=== PATIENT | male | born 1960 | race Caucasian/White ===

== ENCOUNTER 2017-05-06 13:39 | Outpatient (RCR) | payer MEDICARE, SELFPAY ==
[2017-05-06 16:08] LABS: Absolute Lymphocyte Count 2.04 X10^3/ul (0.83-4.51); Absolute Neutrophil Count 2.7 X10^3/uL (2.0-7.7); Basophil# 0.03 X10^3/uL; Basophil% 0.5 % (0-1); Eosinophil# 0.16 X10^3/uL; Eosinophils% 2.9 % (0-5); Hematocrit 46.3 % (40-54); Hemoglobin 16.1 g/dl (13.0-16.5); Lymphocyte # 2.04 X10^3/ul (4.0); Lymphocyte % 36.6 % (19-41); Mean Corp Hgb Conc 34.8 g/gl (32-36); Mean Corpuscular Hgb 28.8 pg (27.0-32.0); Mean Corpuscular Volume 82.8 fL (80-94); Mean Platelet Vol. 11.2 fl (6.2-12.0); Monocyte# 0.61 X10^3/uL; Neutrophil # 2.72 X10^3/uL (2.7-7.7); Neutrophil % 48.8 % (47-70); Platelet Count 195 K/mm3 (150-450); RBC Distribution Width CV 14.9 % (11.6-14.6); RBC Distribution Width SD 45.5 fl (35.1-43.9); Red Blood Count 5.59 M/mm3 (4.6-6.2); White Blood Count 5.6 K/mm3 (4.4-11.0)
[2017-05-06 16:14] LABS: POSITIVE COUNT NO; POSITIVE DIFFERENTIAL NO; POSITIVE MORPHOLOGY NO
== END 2017-05-06 14:00 | disposition home or self-care (01) ==
LOC: MTLAB 13:39
PROVIDERS: Family Provider Family Medicine; PCP Family Medicine; Visit Provider Psychiatry & Neurology Psychiatry
DX: Z79.899 Other long term (current) drug therapy (principal); F25.9 Schizoaffective disorder, unspecified
CPT/HCPCS: 36415; 85025

== ENCOUNTER 2017-06-03 08:16 | Outpatient (RCR) | payer MEDICARE, SELFPAY ==
[2017-06-03 10:29] LABS: Absolute Lymphocyte Count 1.78 X10^3/ul (0.83-4.51); Absolute Neutrophil Count 3.1 X10^3/uL (2.0-7.7); Basophil# 0.03 X10^3/uL; Basophil% 0.5 % (0-1); Eosinophil# 0.18 X10^3/uL; Eosinophils% 3.3 % (0-5); Hematocrit 48.4 % (40-54); Hemoglobin 16.1 g/dl (13.0-16.5); Lymphocyte # 1.78 X10^3/ul (4.0); Lymphocyte % 32.2 % (19-41); Mean Corp Hgb Conc 33.3 g/gl (32-36); Mean Corpuscular Hgb 28.2 pg (27.0-32.0); Mean Corpuscular Volume 84.9 fL (80-94); Mean Platelet Vol. 11.3 fl (6.2-12.0); Monocyte# 0.45 X10^3/uL; Monocyte% 8.2 % (0-10); Neutrophil # 3.07 X10^3/uL (2.7-7.7); Neutrophil % 55.6 % (47-70); Platelet Count 188 K/mm3 (150-450); RBC Distribution Width CV 14.2 % (11.6-14.6); RBC Distribution Width SD 44.4 fl (35.1-43.9); White Blood Count 5.5 K/mm3 (4.4-11.0)
[2017-06-03 10:30] LABS: POSITIVE COUNT NO; POSITIVE DIFFERENTIAL NO; POSITIVE MORPHOLOGY NO
== END 2017-06-03 15:00 | disposition home or self-care (01) ==
LOC: MTLAB 08:16
PROVIDERS: Family Provider Family Medicine; PCP Family Medicine; Visit Provider Psychiatry & Neurology Psychiatry
DX: Z79.899 Other long term (current) drug therapy (principal)
CPT/HCPCS: 36415; 85025

== ENCOUNTER 2017-07-01 13:37 | Outpatient (RCR) | payer MEDICARE, SELFPAY ==
[2017-07-01 16:04] LABS: Absolute Lymphocyte Count 1.84 X10^3/ul (0.83-4.51); Absolute Neutrophil Count 3.9 X10^3/uL (2.0-7.7); Basophil# 0.02 X10^3/uL; Basophil% 0.3 % (0-1); Eosinophil# 0.16 X10^3/uL; Eosinophils% 2.4 % (0-5); Hematocrit 44.5 % (40-54); Hemoglobin 15.6 g/dl (13.0-16.5); Lymphocyte # 1.84 X10^3/ul (4.0); Lymphocyte % 27.2 % (19-41); Mean Corp Hgb Conc 35.1 g/gl (32-36); Mean Corpuscular Hgb 29.2 pg (27.0-32.0); Mean Corpuscular Volume 83.3 fL (80-94); Mean Platelet Vol. 11.1 fl (6.2-12.0); Monocyte# 0.87 X10^3/uL; Monocyte% 12.9 % (0-10); Neutrophil # 3.85 X10^3/uL (2.7-7.7); Neutrophil % 56.9 % (47-70); Platelet Count 175 K/mm3 (150-450); RBC Distribution Width CV 13.5 % (11.6-14.6); RBC Distribution Width SD 41.3 fl (35.1-43.9); Red Blood Count 5.34 M/mm3 (4.6-6.2); White Blood Count 6.8 K/mm3 (4.4-11.0)
[2017-07-01 16:05] LABS: POSITIVE COUNT NO; POSITIVE DIFFERENTIAL NO; POSITIVE MORPHOLOGY NO
[2017-07-01 16:26] LABS: ALB/GLOB Ratio 1.1 RATIO (0.9-2.4); AST(SGOT) 13 U/L (15-37); Alanine Aminotransfer ALT/SGPT 26 U/L (16-61); Albumin, Serum 3.8 g/dL (3.2-5.0); Alkaline Phosphatase 74 U/L (45-117); Anion Gap 9 (5-15); BUN 17 mg/dL (7-18); BUN/Creat Ratio 13.5 RATIO (10-20); Calcium,Total 8.4 mg/dL (8.5-10.1); Chloride 101 mmol/L (98-107); Cholesterol 119 mg/dL (200); Creatinine, Serum 1.26 mg/dL (0.70-1.30); EST Glomerular Filtration Rate 63 mL/min (>60); Est Glom Filt Rate - Afr Amer 76 mL/min (>60); Globulin 3.5 g/dL (2.2-4.2); Glucose 111 mg/dL (74-106); High Density Lipoprotein 26 mg/dL; Potassium 3.5 mmol/L (3.5-5.1); Protein, Total 7.3 g/dL (6.4-8.2); Sodium Level 135 mmol/L (136-145); Triglycerides 290 mg/dL; Very Low Density Lipoprotein 58 mg/dL (5-40)
== END 2017-07-01 14:00 | disposition home or self-care (01) ==
LOC: MTLAB 13:37
PROVIDERS: Family Provider Family Medicine; PCP Family Medicine; Visit Provider Psychiatry & Neurology Psychiatry
DX: Z79.899 Other long term (current) drug therapy (principal)
CPT/HCPCS: 36415; 80053; 80061; 84443; 85025

== ENCOUNTER → 2017-07-29 09:05 | Outpatient (CLI) | payer MEDICARE, SELFPAY ==
[2017-07-29 09:55] LABS: Absolute Lymphocyte Count 2.01 X10^3/ul (0.83-4.51); Absolute Neutrophil Count 3.5 X10^3/uL (2.0-7.7); Basophil# 0.03 X10^3/uL; Basophil% 0.5 % (0-1); Eosinophil# 0.26 X10^3/uL; Eosinophils% 4.1 % (0-5); Hematocrit 49.6 % (40-54); Hemoglobin 16.7 g/dl (13.0-16.5); Lymphocyte # 2.01 X10^3/ul (4.0); Lymphocyte % 31.4 % (19-41); Mean Corp Hgb Conc 33.7 g/gl (32-36); Mean Corpuscular Hgb 29.1 pg (27.0-32.0); Mean Corpuscular Volume 86.6 fL (80-94); Mean Platelet Vol. 10.9 fl (6.2-12.0); Monocyte# 0.63 X10^3/uL; Monocyte% 9.8 % (0-10); Neutrophil # 3.48 X10^3/uL (2.7-7.7); Neutrophil % 54.2 % (47-70); Platelet Count 183 K/mm3 (150-450); RBC Distribution Width CV 13.9 % (11.6-14.6); RBC Distribution Width SD 43.6 fl (35.1-43.9); Red Blood Count 5.73 M/mm3 (4.6-6.2); White Blood Count 6.4 K/mm3 (4.4-11.0)
[2017-07-29 09:56] LABS: POSITIVE COUNT NO; POSITIVE DIFFERENTIAL NO; POSITIVE MORPHOLOGY NO
== END ==
PROVIDERS: Family Provider Family Medicine; PCP Family Medicine; Visit Provider Psychiatry & Neurology Psychiatry
DX: F19.10 Other psychoactive substance abuse, uncomplicated (principal); Z79.899 Other long term (current) drug therapy; R53.83 Other fatigue
CPT/HCPCS: 36415; 85025

== ENCOUNTER 2017-09-23 12:14 | Outpatient (RCR) | payer MEDICARE, SELFPAY ==
[2017-08-26 12:07] LABS: Absolute Lymphocyte Count 1.61 X10^3/ul (0.83-4.51); Absolute Neutrophil Count 3.4 X10^3/uL (2.0-7.7); Basophil# 0.04 X10^3/uL; Basophil% 0.7 % (0-1); Eosinophil# 0.14 X10^3/uL; Eosinophils% 2.4 % (0-5); Hematocrit 46.2 % (40-54); Hemoglobin 16.1 g/dl (13.0-16.5); Lymphocyte # 1.61 X10^3/ul (4.0); Mean Corp Hgb Conc 34.8 g/gl (32-36); Mean Corpuscular Hgb 29.4 pg (27.0-32.0); Mean Corpuscular Volume 84.5 fL (80-94); Monocyte% 10.4 % (0-10); Neutrophil # 3.36 X10^3/uL (2.7-7.7); Neutrophil % 58.3 % (47-70); Platelet Count 170 K/mm3 (150-450); RBC Distribution Width CV 13.3 % (11.6-14.6); RBC Distribution Width SD 41.4 fl (35.1-43.9); Red Blood Count 5.47 M/mm3 (4.6-6.2); White Blood Count 5.8 K/mm3 (4.4-11.0)
[2017-08-26 12:08] LABS: POSITIVE COUNT NO; POSITIVE DIFFERENTIAL NO; POSITIVE MORPHOLOGY NO
[2017-09-23 14:23] LABS: Absolute Lymphocyte Count 2.42 X10^3/ul (0.83-4.51); Absolute Neutrophil Count 3.5 X10^3/uL (2.0-7.7); Basophil# 0.03 X10^3/uL; Basophil% 0.4 % (0-1); Eosinophil# 0.19 X10^3/uL; Eosinophils% 2.8 % (0-5); Hematocrit 46.1 % (40-54); Hemoglobin 16.2 g/dl (13.0-16.5); Lymphocyte # 2.42 X10^3/ul (4.0); Lymphocyte % 35.2 % (19-41); Mean Corp Hgb Conc 35.1 g/gl (32-36); Mean Corpuscular Hgb 29.3 pg (27.0-32.0); Mean Corpuscular Volume 83.4 fL (80-94); Mean Platelet Vol. 11.4 fl (6.2-12.0); Monocyte# 0.68 X10^3/uL; Monocyte% 9.9 % (0-10); Neutrophil # 3.54 X10^3/uL (2.7-7.7); Neutrophil % 51.6 % (47-70); Platelet Count 176 K/mm3 (150-450); RBC Distribution Width SD 39.6 fl (35.1-43.9); Red Blood Count 5.53 M/mm3 (4.6-6.2); White Blood Count 6.9 K/mm3 (4.4-11.0)
[2017-09-23 14:30] LABS: POSITIVE COUNT NO; POSITIVE DIFFERENTIAL NO; POSITIVE MORPHOLOGY NO
== END 2017-09-23 13:00 | disposition home or self-care (01) ==
LOC: MTLAB 12:14
PROVIDERS: Family Provider Family Medicine; PCP Family Medicine; Visit Provider Psychiatry & Neurology Psychiatry
DX: Z79.899 Other long term (current) drug therapy (principal); F19.10 Other psychoactive substance abuse, uncomplicated; R53.83 Other fatigue
CPT/HCPCS: 36415; 85025

== ENCOUNTER → 2017-10-20 16:24 | Outpatient (CLI) | payer MEDICARE, SELFPAY ==
[2017-10-20 17:37] LABS: Absolute Lymphocyte Count 2.74 X10^3/ul (0.83-4.51); Absolute Neutrophil Count 3.5 X10^3/uL (2.0-7.7); Basophil# 0.04 X10^3/uL; Basophil% 0.5 % (0-1); Eosinophil# 0.15 X10^3/uL; Eosinophils% 2.1 % (0-5); Hematocrit 44.9 % (40-54); Hemoglobin 15.6 g/dl (13.0-16.5); Lymphocyte # 2.74 X10^3/ul (4.0); Lymphocyte % 37.6 % (19-41); Mean Corp Hgb Conc 34.7 g/gl (32-36); Mean Corpuscular Hgb 29.3 pg (27.0-32.0); Mean Corpuscular Volume 84.4 fL (80-94); Mean Platelet Vol. 10.5 fl (6.2-12.0); Monocyte# 0.81 X10^3/uL; Monocyte% 11.1 % (0-10); Neutrophil # 3.53 X10^3/uL (2.7-7.7); Neutrophil % 48.6 % (47-70); Platelet Count 182 K/mm3 (150-450); RBC Distribution Width CV 13.1 % (11.6-14.6); RBC Distribution Width SD 39.6 fl (35.1-43.9); Red Blood Count 5.32 M/mm3 (4.6-6.2); White Blood Count 7.3 K/mm3 (4.4-11.0)
[2017-10-20 17:38] LABS: POSITIVE COUNT NO; POSITIVE DIFFERENTIAL NO; POSITIVE MORPHOLOGY NO
== END ==
PROVIDERS: Family Provider Family Medicine; PCP Family Medicine; Visit Provider Psychiatry & Neurology Psychiatry
DX: Z79.899 Other long term (current) drug therapy (principal); F19.10 Other psychoactive substance abuse, uncomplicated; R53.83 Other fatigue
CPT/HCPCS: 36415; 85025

== ENCOUNTER 2017-11-04 14:03 | Inpatient (IN) | payer MEDICARE, SELFPAY ==
[2017-11-04] VITALS (10 sets, daily range): BP systolic 100–118; BP diastolic 64–81; PULSE 92–131; RESP 14–32; TEMP 35.2–37.1; O2SAT 94–99; BMI 27.7; BMI 27.9
[2017-11-04 14:30] LABS: Bedside Glucose 206 mg/dL (70-110)
--- NOTE | 2017-11-04 14:31 | EKG12_ITS ---
Test Reason : CP Blood Pressure : / mmHG Vent. Rate : 123 BPM Atrial Rate : 123 BPM P-R Int : 132 ms QRS Dur : 084 ms QT Int : 322 ms P-R-T Axes : 067 -36 076 degrees QTc Int : 460 ms Sinus tachycardia Left axis deviation Abnormal ECG Confirmed by BRENDA CAMACHO, JALEESA ([id number]), supervising film or videotape editor BERENICE MUNOZ ([id number]) on 11/09/2017 2:23:25 PM Referred By: BRANDEN Confirmed By:JALEESA GUTIERREZ MD
--- NOTE | 2017-11-04 14:31 | RAD_ITS ---
STUDY: X-RAY CHEST REASON FOR EXAM: Male, 57 years old. Shortness of breath, difficulty breathing TECHNIQUE: Single AP portable view of the chest. COMPARISON: 09/16/2015 FINDINGS: EKG leads overlie the chest The lungs are clear and expanded. There is no demonstrated pleural abnormality. Normal size heart. Normal mediastinum and memo. Normal visualized pulmonary arteries. Normal visualized aortic arch and descending thoracic aorta. Normal visualized thoracic spine. Normal visualized ribs, clavicles, and shoulders. There is no demonstrated abnormality of the visualized soft tissue structures of the upper abdomen. RAD/Chest 1 View (Portable) IMPRESSION: Normal x-ray examination of the chest. Electronically Signed: Jefry Wright MD at 14:54 EDT , Service support ,
[2017-11-04] MEDS: 0.9% Normal Saline 1,000 ML 999 ML IV ×2 (14:40)
--- NOTE | 2017-11-04 14:43 | ED.DCSUM_ITS ---
- ER Visit Summary Date of Service: 11/04/17 Chief Complaint: Shortness of breath History of Present Illness: The patient is a 57 M status post recent ileostomy about 2 weeks ago at the [facility]. He was hospitalized for about a week after that. Recently has been home. Last 2 days he states he has been short of breath. Really denies any significant chest pain. Denies any prior history of DVT or PE. Denies any leg pain or swelling. Denies any hemoptysis. Denies any gross blood coming from his ostomy site. He denies any fever or significant cough. Physical Examination: Middle-aged male. Vital signs blood pressure 109/65 when I am in the room his pressure is 83/70. Temperature 95.3 heart rate 131. He is 95% on room air begins talking becomes hypoxic. H EENT exam unremarkable moist wheeze membranes. Neck nontender no JVD. No lymphadenopathy. Lungs clear to auscultation bilaterally. Heart tachycardic rate about 130 no murmur. Chest wall nontender. Abdomen soft, nondistended, normal bowel sounds no peritoneal signs. His right lower quadrant ileostomy with liquid brown stool. No gross blood. No melena. Moving all 4 extremities. Calves are nontender without edema or cords. Equal symmetrical radial pulses. Neurologically is awake alert with no focal motor deficits. Test Results: Chest x-ray no acute abnormality. Ultrasound lower extremities shows no DVT. EKG sinus tachycardia 123. No acute signs of ischemia. CBC shows a white count of 14 H&H 18 and 15. No bands. Electrolytes sodium 135. CO2 18. BUN 27 creatinine 3.49. Anion gap 16. Upon normal. D-dimer slightly elevated 1.45 lactic acid 2.8. Patient does have an acute renal injury with creatinine of 3.49 previously was 1.26. Emergency Department Course and Treatment: Patient with recent surgery with hypoxia and dyspnea. He will undergo cardiac workup. Receive IV fluids for his hypotension. And a strong consideration has to be given for the possibility of a pulmonary embolus. Treatment Plan: Patient looks much better on repeat exam in 1641 after IV fluids. This may all be secondary to dehydration from the ileostomy. Patient feels better and his pulse ox is 97% on room air. We are unable to do a CTA due to his renal function. The ultrasound of the legs was negative for any DVT. He will be admitted for additional IV fluids and further evaluation for the acute kidney injury. The hospitalist will determine any further evaluation for possible pulmonary embolus. Nuclear medicine is not available at this time for a VQ scan. Also the patient's lactic acid is slightly elevated 2.8 but I do not think this is from sepsis and negative hypotension and dehydration. I have spoken to the hospitalist and she did admit the patient to PCU Disposition: Admission Impression: Acute dyspnea with hypoxia Status post recent right lower quadrant ileostomy Hypoxia Acute renal injury status post recent ileostomy Dehydration Hypotension This note was generated with [employer] dictation software. It may contain incorrect words, spelling, and punctuation that were not noted in review of the chart prior to signing ED Disposition - Plan for ED Patient: Chief Complaint: Shortness of Breath Referrals: Micheal Tejeda MD [Primary Care Provider] -
[2017-11-04 14:45] LABS: Absolute Lymphocyte Count 1.38 X10^3/ul (0.83-4.51); Absolute Neutrophil Count 11.4 X10^3/uL (2.0-7.7); Basophil# 0.05 X10^3/uL; Basophil% 0.3 % (0-1); Eosinophil# 0.05 X10^3/uL; Eosinophils% 0.3 % (0-5); Hematocrit 50.7 % (40-54); Lymphocyte # 1.38 X10^3/ul (4.0); Lymphocyte % 9.6 % (19-41); Mean Corp Hgb Conc 36.3 g/gl (32-36); Mean Corpuscular Hgb 29.9 pg (27.0-32.0); Mean Corpuscular Volume 82.3 fL (80-94); Mean Platelet Vol. 11.1 fl (6.2-12.0); Monocyte% 9.1 % (0-10); Neutrophil # 11.41 X10^3/uL (2.7-7.7); Neutrophil % 79.9 % (47-70); Platelet Count 390 K/mm3 (150-450); RBC Distribution Width CV 13.4 % (11.6-14.6); RBC Distribution Width SD 40.2 fl (35.1-43.9); Red Blood Count 6.16 M/mm3 (4.6-6.2); White Blood Count 14.3 K/mm3 (4.4-11.0)
[2017-11-04 14:48] LABS: Hemoglobin 18.4 g/dl (13.0-16.5); POSITIVE COUNT NO; POSITIVE DIFFERENTIAL NO; POSITIVE MORPHOLOGY NO
[2017-11-04 14:50] LABS: D-Dimer Quantitative (DVT/PE) 1.45 FEU/ug/m (0.27-0.49)
--- NOTE | 2017-11-04 14:50 | ED.RN ---
d-dimer 1.45. aware.
[2017-11-04 14:52] LABS: Anion Gap 16 (5-15); BUN 27 mg/dL (7-18); BUN/Creat Ratio 7.7 RATIO (10-20); Chloride 101 mmol/L (98-107); Creatinine, Serum 3.49 mg/dL (0.70-1.30); EST Glomerular Filtration Rate 20 mL/min (>60); Est Glom Filt Rate - Afr Amer 24 mL/min (>60); Estimated Creatinine Clearance 27.03 ml/min; Glucose 202 mg/dL (74-106); Potassium 4.6 mmol/L (3.5-5.1); Sodium Level 135 mmol/L (136-145)
--- NOTE | 2017-11-04 14:59 | VDLE_ITS ---
Reason For Study: SOB RIGHT LEFT GSV is normal. GSV is normal. CFV is compressible, spontaneous, phasic, CFV is compressible, spontaneous, phasic, competent and demonstrates normal competent, and demonstrates normal augmentation. augmentation. FV is compressible, spontaneous, phasic, FV is compressible, spontaneous, phasic, competent and demonstrates normal competent and demonstrates normal augmentation. augmentation. POP V is compressible, spontaneous, phasic, POP V is compressible, spontaneous, phasic, competent and demonstrates normal competent and demonstrates normal augmentation. augmentation. T/P Trunk is compressible. T/P Trunk is compressible. PTV is compressible. PTV is compressible. RT PerV is compressible. LT PerV is compressible. Procedure Exam performed portable in ED. The exam was diagnostic. A preliminary report was called and/or faxed to Dr. Maricruz Sarah @ 3:30 pm & ED. Interpretation Summary No evidence for acute deep venous thrombosis bilateral lower extremities with patent and compressible bilateral great saphenous veins. Ordering Physician: Adrien Sarah Referring Physician: Kyree Pena Performed By: Camille Flores, ARIANA, RVT
[2017-11-04 15:38] LABS: Lactic Acid 2.8 mmol/L (0.4-2.0)
--- NOTE | 2017-11-04 15:38 | NURSING ---
LAB CALLED CRITICAL RESULT OF LACTIC ACID 2.8. DR OTERO NOTIFIED, NO NEW ORDERS RECEIVED
--- NOTE | 2017-11-04 17:13 | PCM.HP.STD ---
<Shane Butler - Last Filed: 11/04/17 17:13> Problem List (1) LUIS ANTONIO (acute kidney injury) Status: Acute (2) SIRS (systemic inflammatory response syndrome) Status: Acute (3) S/P ileostomy Status: Chronic (4) HTN (hypertension) Status: Chronic (5) Diabetes mellitus Status: Chronic Qualifiers: Diabetes mellitus type: type 2 (6) HLD (hyperlipidemia) Status: Chronic (7) Schizoaffective disorder Status: Chronic (8) Nicotine abuse Status: Chronic History of Present Illness Date of Admission: 11/04/17 Chief Complaint: SOB The patient is a 57 year old M with a hx of chronic constipation and diarrhea for which he just underwent an ileostomy at [facility] 9 days prior, discharged from the hospital 2 days ago. He also has a hx of schizoaffective disorder, HTN, DMt2, nicotine abuse, and HLD. He presents today with increased SOB. He has no cough. He has been tracking the output of his ileostomy and notes >2400 cc / day. He has some abdominal distention. The output is dark green. He has no fevers or chills. No cough. No urinary complaints. No anal output. No nausea or vomiting. No abdominal pain. No CP. [] Past Medical History Past Medical History (Chronic Problems): Chronic Problems S/P ileostomy (Chronic) HTN (hypertension) (Chronic) Diabetes mellitus (Chronic) HLD (hyperlipidemia) (Chronic) Schizoaffective disorder (Chronic) Nicotine abuse (Chronic) Allergies No Known Allergies Allergy (Verified 12/29/16 13:26) Home Medications: Ambulatory Orders Medication Instructions Recorded Atenolol [Tenormin (beta Gabby)] 25 mg PO BID 02/15/15 Clozapine [Clozaril] 25 mg PO DAILY 02/15/15 Lisinopril [Zestril] 2.5 mg PO DAILY 02/15/15 Lorazepam [Ativan] 2 mg PO DAILY PRN PRN 02/15/15 Lovastatin [Mevacor] 10 mg PO DAILY 02/15/15 Montelukast [Singulair] 10 mg PO DAILY 02/15/15 [place]-3 Fatty Acids/Fish Oil 1 cap PO .COMPLEX 02/15/15 [[place] 3 Fish Oil Softgel] Propranolol HCl [Inderal] 10 mg PO DAILY 02/15/15 Sitagliptin Phos/Metformin HCl 1 tablet PO BIDCM 02/15/15 [Janumet 50-1,000 MG Tablet] Lubiprostone [Amitiza] 24 mcg PO BID 12/29/16 Aspirin [Aspirin EC] 81 mg PO DAILY 11/04/17 Cyanocobalamin (Vitamin B-12) 1,000 mcg PO DAILY 11/04/17 [Vitamin B-12] Linaclotide [Linzess] 290 mg PO BID 11/04/17 Niacinamide [Niacin] 500 mg PO DAILY 11/04/17 Perphenazine [Perphenazine] 8 mg PO 4X/DAY 11/04/17 Surgical History: - - ileostomy Psychiatric History: - - schizoaffective Lives: With Family Smoking Status: Current every day smoker Tobacco Use: Cigarettes Alcohol: Occasional Drugs: None - *Family History Maternal History Items: High Cholesterol Paternal History Items: Unknown Review of Systems Constitutional: Denies: Chills, Fever, Weight Change HEENT: Denies: Head Aches, Sinus Congestion, Sinus Drainage Cardiovascular: Denies: Chest Pain, Palpitations Respiratory: Reports: Shortness of Breath, Shortness of breath at rest. Denies: Cough, Sputum production Gastrointestinal: Reports: - - increased output from ileostomy. Denies: Abdominal Pain, Nausea, Vomiting Genitourinary: Denies: Dysuria Musculoskeletal: Denies: Joint Pain, Joint Tenderness Skin: Denies: Rash, Wounds Neurological: Denies: Numbness, Tingling, Focal weakness Psychiatric: Denies: Anxiety, Depression, Homicidal Ideations, Suicidal Ideations Hematologic/ Lymphatic: Denies: Easy Bruising, Easy Bleeding VTE Information - Inpt Only VTE Present on Admission: No VTE Mechan Device Prophylaxis: None VTE Pharm Prophylaxis ordered?: Yes Patient Problems: Active and Suspected Problems SIRS (systemic inflammatory response syndrome) (Acute) LUIS ANTONIO (acute kidney injury) (Acute) - Physical Exam General: Alert, Oriented x3, Cooperative HEENT: Atraumatic, PERRLA, EOMI, Normocephalic Neck: Supple, No JVD, Negative Carotid Bruits Lungs: Clear to auscultation, Normal air movement Cardiovascular: Regular rate, No murmurs Abdomen: Bowel Sounds Present, Soft, Non Tender, Distended Extremities: No edema, Capillary Refill Less than 3 Seconds Skin: No rashes, No breakdown Musculoskeletal: No Tenderness to Palpation of Joints or Extremities Neurological: Cranial nerves II-XII grossly intact Psych/Mental Status: Normal Affect, Appropriate Vital Signs Temp Pulse Resp BP Pulse Ox 95.3 F L 104 H 29 H 109/75 98 11/04/17 14:05 11/04/17 17:05 11/04/17 17:05 11/04/17 17:05 11/04/17 17:05 Oxygen Delivery Method Room Air Weight: 95.254 kg Body Mass Index (BMI) 27.7 Finger Stick Blood Glucose 206 Laboratory Tests Past 24 Hrs 11/04/17 11/04/17 11/04/17 14:25 14:25 14:25 WBC 14.3 H RBC 6.16 Hgb 18.4 H* Hct 50.7 MCV 82.3 MCH 29.9 MCHC 36.3 H RDW 13.4 RDW Differential 40.2 Plt Count 390 MPV 11.1 Immature Gran % (Auto) 0.800 Neut % (Auto) 79.9 H Lymph % (Auto) 9.6 L Metcalfe % (Auto) 9.1 Eos % (Auto) 0.3 Baso % (Auto) 0.3 Absolute Neuts (auto) 11.4 H Absolute Lymphs (auto) 1.38 Total Counted Not Reportable D-Dimer Quant (PE/DVT) 1.45 H* Sodium 135 L Potassium 4.6 Chloride 101 Carbon Dioxide 18.0 L Anion Gap 16 H BUN 27 H Creatinine 3.49 H Estim Creat Clear Calc 27.03 Est GFR (MDRD) Af Amer 24 L Est GFR (MDRD) Non-Af 20 L BUN/Creatinine Ratio 7.7 L Glucose 202 H Lactic Acid Calcium 10.0 Troponin I < 0.015 11/04/17 14:40 WBC RBC Hgb Hct MCV MCH MCHC RDW RDW Differential Plt Count MPV Immature Gran % (Auto) Neut % (Auto) Lymph % (Auto) Metcalfe % (Auto) Eos % (Auto) Baso % (Auto) Absolute Neuts (auto) Absolute Lymphs (auto) Total Counted D-Dimer Quant (PE/DVT) Sodium Potassium Chloride Carbon Dioxide Anion Gap BUN Creatinine Estim Creat Clear Calc Est GFR (MDRD) Af Amer Est GFR (MDRD) Non-Af BUN/Creatinine Ratio Glucose Lactic Acid 2.8 H Calcium Troponin I POC Glucose 11/04/17 14:22 POC Glucose 206 H Assessment/Plan All Active Problems SIRS (systemic inflammatory response syndrome) (Acute) LUIS ANTONIO (acute kidney injury) (Acute) 1. SOB - unclear etiology with SIRS criteria present, lactic acidosis. Lungs are clear to auscultation, no cough, negative CXR. Pt will be given IV hydration. Elevated D dimer. Will have VQ scan tomorrow, until then will receive 1 dose therapeutic lovenox. -leukocytosis, lactic acidosis, tachycardic, tachypneic, low temp, elevated gap. 2. LUIS ANTONIO - hydrate. possibly dehydrated 2/2 increased output. Hold janumet, lisinopril 3. s/p ileostomy and recently DCd from [facility] main with increased output - Dr. Dixon will be consulted. He is somewhat distended. Check for Cdiff/enteric panel, lactoferrin. 4. HTN - home meds, Hold lisinopril 5. HLD - statin held. 6. DMt2 - orals held, SSI 7. Schizoaffective disorder - continue home meds. DVT ppx: 1xdose therapeutic lovenox until VQ scan DC planning: lives with family. PTOT. Recent prolonged hospital stay, likely deconditioned. This patient was seen by Shane Butler PA-C under the supervision of Doctor Schuster. <Deneen Schuster - Last Filed: 11/04/17 19:38> History of Present Illness The patient is a 57 year old M [] Past Medical History Allergies No Known Allergies Allergy (Verified 12/29/16 13:26) - Physical Exam Vital Signs Temp Pulse Resp BP Pulse Ox 96 F L 106 H 14 108/68 96 11/04/17 17:52 11/04/17 17:52 11/04/17 17:52 11/04/17 17:52 11/04/17 17:52 Oxygen Delivery Method Room Air Weight: 96 kg Body Mass Index (BMI) 27.9 Intake and Output for Last 24 Hours 11/02/17 11/03/17 11/04/17 23:59 23:59 23:59 Output Total 600 / 600 Balance -600 / -600 Microbiology Past 72 Hours 11/04/17 17:50 Stool Lactoferrin - Final Stool POC Glucose 11/04/17 18:20 POC Glucose 143 H Assessment/Plan Patient seen and examined with physician pediatric dental assistant, Shane Butler. I agree with his above documented history, physical exam, and assessment and plan. 57-year-old male with past medical history of schizoaffective disorder, hypertension, hyperlipidemia, type II DM, chronic constipation alternating with chronic diarrhea, who is status post ileostomy for intestinal obstruction, 10 days ago. Patient was discharged from the [facility] 2 days ago. He comes in complaining of increased shortness of breath as well as increased output from his ileostomy more than 2400 mls/day. He has associated abdominal distention but denied any fever or chills or cough or chest pain or palpitations. Physical exam; GEN: Obese, appears well hydrated, no jaundice, not pale, appears comfortable CVS: Heart sounds 1 and 2, tachycardia, no murmurs. RESP: Diminished at the lung bases but otherwise vascular breath sounds no added sounds ABD: Right ileostomy, liquid green stools in ostomy bag, abdomen looks distended, soft, nontender EXT: No bilateral leg edema Labs: Leukocytosis with WBC count of 14.3, hemoglobin of 18.4, baseline hemoglobin of about 15-16 , platelet count of 390, d-dimer was 1.45, sodium 135, potassium 4.6, chloride 101, bicarbonate 18, BUN is 17, creatinine is 3.49, baseline creatinine of about 1, troponins is negative, lactic acid 2.2, glucose 202 Imaging: Chest x-ray is negative. A/P: 1. Severe sepsis, unclear etiology, doubt that patient has infection. Elevated lactic acid could very well be related to hypoxia, will trend 2. Increased output from ileostomy site, status post recent ileostomy, consult general surgery 3. Elevated hemoglobin, in a patient with baseline hemoglobin of 15-16, questionable chronic hypoxia vs polycythemia 4. LUIS ANTONIO on CKD, baseline creatinine of 1 5. Anion gap secondary to LUIS ANTONIO 6. Elevated d-dimer, tachycardia concerning for possible PE, Doppler ultrasound in the ED has been negative, cannot do CTA PE protocol because of LUIS ANTONIO, will do VQ scan 7. Hyperglycemia in a known type II diabetic 8. Hypertension, controlledf 9. Hyperlipidemia 10.Schizoaffective disorder 11.DVT prophylaxis with Lovenox subcu Blood cultures ?2, will start on empiric Zosyn pending blood cultures as we do not have a new of infection, will monitor Stool cultures, stool for C. difficile, stool for enteric panel, place and contact isolation for now We will continue most of his medications, hold lisinopril, hold Janumet, continue on IV fluids, labs in a.m., VQ scan in a.m. as radiology appears to have left for the day. We will consult general surgery, wound nurse to assist with management of ileostomy, since he had a recent surgery. We will start patient on 1 dose of therapeutic Lovenox pending results of VQ scan Code Visit Inpatient E&M: 32969 Init Hosp L3
--- NOTE | 2017-11-04 17:26 | NM_ITS ---
CLINICAL: Male, 57 years old. Shortness of breath, recent surgery NUCLEAR VENTILATION/PERFUSION - LUNG TECHNIQUE: The patient was administered 5.7 mCi of Tc MAA followed by a perfusion lung scan. The patient was administered 48.6 mCi of Tc DTPA aerosol followed by a ventilation lung scan. Comparison made to prior chest radiograph dated 11/04/2017. COMPARISON STUDIES : NM - None. CR - Not available for review at this time. CT - Not available for review at this time. MR - Not available for review at this time. FINDINGS: The pulmonary perfusion study demonstrates uniform perfusion throughout both lung jenkins. There are no demonstrated segmental or subsegmental perfusion defects The ventilation study demonstrates uniform ventilation throughout both lung jenkins. There are no segmental or subsegmental ventilation abnormalities. NM/Lung Scan Vent/Perf IMPRESSION: Normal 99m Tc MAA pulmonary perfusion Tc DTPA aerosol ventilation imaging survey, according to revised PIOPED interpretive criteria. Electronically Signed: Jefry Wright MD at 11:57 EDT , Service support ,
--- NOTE | 2017-11-04 17:31 | HP.PCM_ITS ---
<Shane Butler - Last Filed: 11/04/17 17:13> Problem List (1) LUIS ANTONIO (acute kidney injury) Status: Acute (2) SIRS (systemic inflammatory response syndrome) Status: Acute (3) S/P ileostomy Status: Chronic (4) HTN (hypertension) Status: Chronic (5) Diabetes mellitus Status: Chronic Qualifiers: Diabetes mellitus type: type 2 (6) HLD (hyperlipidemia) Status: Chronic (7) Schizoaffective disorder Status: Chronic (8) Nicotine abuse Status: Chronic History of Present Illness Date of Admission: 11/04/17 Chief Complaint: SOB The patient is a 57 year old M with a hx of chronic constipation and diarrhea for which he just underwent an ileostomy at [facility] 9 days prior, discharged from the hospital 2 days ago. He also has a hx of schizoaffective disorder, HTN, DMt2, nicotine abuse, and HLD. He presents today with increased SOB. He has no cough. He has been tracking the output of his ileostomy and notes >2400 cc / day. He has some abdominal distention. The output is dark green. He has no fevers or chills. No cough. No urinary complaints. No anal output. No nausea or vomiting. No abdominal pain. No CP. [] Past Medical History Past Medical History (Chronic Problems): Chronic Problems S/P ileostomy (Chronic) HTN (hypertension) (Chronic) Diabetes mellitus (Chronic) HLD (hyperlipidemia) (Chronic) Schizoaffective disorder (Chronic) Nicotine abuse (Chronic) Allergies No Known Allergies Allergy (Verified 12/29/16 13:26) Home Medications: Ambulatory Orders Medication Instructions Recorded Atenolol [Tenormin (beta Gabby)] 25 mg PO BID 02/15/15 Clozapine [Clozaril] 25 mg PO DAILY 02/15/15 Lisinopril [Zestril] 2.5 mg PO DAILY 02/15/15 Lorazepam [Ativan] 2 mg PO DAILY PRN PRN 02/15/15 Lovastatin [Mevacor] 10 mg PO DAILY 02/15/15 Montelukast [Singulair] 10 mg PO DAILY 02/15/15 [place]-3 Fatty Acids/Fish Oil 1 cap PO .COMPLEX 02/15/15 [[place] 3 Fish Oil Softgel] Propranolol HCl [Inderal] 10 mg PO DAILY 02/15/15 Sitagliptin Phos/Metformin HCl 1 tablet PO BIDCM 02/15/15 [Janumet 50-1,000 MG Tablet] Lubiprostone [Amitiza] 24 mcg PO BID 12/29/16 Aspirin [Aspirin EC] 81 mg PO DAILY 11/04/17 Cyanocobalamin (Vitamin B-12) 1,000 mcg PO DAILY 11/04/17 [Vitamin B-12] Linaclotide [Linzess] 290 mg PO BID 11/04/17 Niacinamide [Niacin] 500 mg PO DAILY 11/04/17 Perphenazine [Perphenazine] 8 mg PO 4X/DAY 11/04/17 Surgical History: - - ileostomy Psychiatric History: - - schizoaffective Lives: With Family Smoking Status: Current every day smoker Tobacco Use: Cigarettes Alcohol: Occasional Drugs: None - *Family History Maternal History Items: High Cholesterol Paternal History Items: Unknown Review of Systems Constitutional: Denies: Chills, Fever, Weight Change HEENT: Denies: Head Aches, Sinus Congestion, Sinus Drainage Cardiovascular: Denies: Chest Pain, Palpitations Respiratory: Reports: Shortness of Breath, Shortness of breath at rest. Denies : Cough, Sputum production Gastrointestinal: Reports: - - increased output from ileostomy. Denies: Abdominal Pain, Nausea, Vomiting Genitourinary: Denies: Dysuria Musculoskeletal: Denies: Joint Pain, Joint Tenderness Skin: Denies: Rash, Wounds Neurological: Denies: Numbness, Tingling, Focal weakness Psychiatric: Denies: Anxiety, Depression, Homicidal Ideations, Suicidal Ideations Hematologic/ Lymphatic: Denies: Easy Bruising, Easy Bleeding VTE Information - Inpt Only VTE Present on Admission: No VTE Mechan Device Prophylaxis: None VTE Pharm Prophylaxis ordered?: Yes Patient Problems: Active and Suspected Problems SIRS (systemic inflammatory response syndrome) (Acute) LUIS ANTONIO (acute kidney injury) (Acute) - Physical Exam General: Alert, Oriented x3, Cooperative HEENT: Atraumatic, PERRLA, EOMI, Normocephalic Neck: Supple, No JVD, Negative Carotid Bruits Lungs: Clear to auscultation, Normal air movement Cardiovascular: Regular rate, No murmurs Abdomen: Bowel Sounds Present, Soft, Non Tender, Distended Extremities: No edema, Capillary Refill Less than 3 Seconds Skin: No rashes, No breakdown Musculoskeletal: No Tenderness to Palpation of Joints or Extremities Neurological: Cranial nerves II-XII grossly intact Psych/Mental Status: Normal Affect, Appropriate Vital Signs Temp Pulse Resp BP Pulse Ox 95.3 F L 104 H 29 H 109/75 98 11/04/17 14:05 11/04/17 17:05 11/04/17 17:05 11/04/17 17:05 11/04/17 17:05 Oxygen Delivery Method Room Air Weight: 95.254 kg Body Mass Index (BMI) 27.7 Finger Stick Blood Glucose 206 Laboratory Tests Past 24 Hrs 11/04/17 11/04/17 11/04/17 14:25 14:25 14:25 WBC 14.3 H RBC 6.16 Hgb 18.4 H* Hct 50.7 MCV 82.3 MCH 29.9 MCHC 36.3 H RDW 13.4 RDW Differential 40.2 Plt Count 390 MPV 11.1 Immature Gran % (Auto) 0.800 Neut % (Auto) 79.9 H Lymph % (Auto) 9.6 L [place] % (Auto) 9.1 Eos % (Auto) 0.3 Baso % (Auto) 0.3 Absolute Neuts (auto) 11.4 H Absolute Lymphs (auto) 1.38 Total Counted Not Reportable D-Dimer Quant (PE/DVT) 1.45 H* Sodium 135 L Potassium 4.6 Chloride 101 Carbon Dioxide 18.0 L Anion Gap 16 H BUN 27 H Creatinine 3.49 H Estim Creat Clear Calc 27.03 Est GFR (MDRD) Af Amer 24 L Est GFR (MDRD) Non-Af 20 L BUN/Creatinine Ratio 7.7 L Glucose 202 H Lactic Acid Calcium 10.0 Troponin I < 0.015 11/04/17 14:40 WBC RBC Hgb Hct MCV MCH MCHC RDW RDW Differential Plt Count MPV Immature Gran % (Auto) Neut % (Auto) Lymph % (Auto) Teller % (Auto) Eos % (Auto) Baso % (Auto) Absolute Neuts (auto) Absolute Lymphs (auto) Total Counted D-Dimer Quant (PE/DVT) Sodium Potassium Chloride Carbon Dioxide Anion Gap BUN Creatinine Estim Creat Clear Calc Est GFR (MDRD) Af Amer Est GFR (MDRD) Non-Af BUN/Creatinine Ratio Glucose Lactic Acid 2.8 H Calcium Troponin I POC Glucose 11/04/17 14:22 POC Glucose 206 H Assessment/Plan All Active Problems SIRS (systemic inflammatory response syndrome) (Acute) LUIS ANTONIO (acute kidney injury) (Acute) 1. SOB - unclear etiology with SIRS criteria present, lactic acidosis. Lungs are clear to auscultation, no cough, negative CXR. Pt will be given IV hydration. Elevated D dimer. Will have VQ scan tomorrow, until then will receive 1 dose therapeutic lovenox. -leukocytosis, lactic acidosis, tachycardic, tachypneic, low temp, elevated gap. 2. LUIS ANTONIO - hydrate. possibly dehydrated 2/2 increased output. Hold janumet, lisinopril 3. s/p ileostomy and recently DCd from [facility] main with increased output - Dr. Dixon will be consulted. He is somewhat distended. Check for Cdiff/enteric panel , lactoferrin. 4. HTN - home meds, Hold lisinopril 5. HLD - statin held. 6. DMt2 - orals held, SSI 7. Schizoaffective disorder - continue home meds. DVT ppx: 1xdose therapeutic lovenox until VQ scan DC planning: lives with family. PTOT. Recent prolonged hospital stay, likely deconditioned. This patient was seen by Shane Butler PA-C under the supervision of Doctor Schuster. <Deneen Schuster - Last Filed: 11/04/17 19:38> History of Present Illness The patient is a 57 year old M [] Past Medical History Allergies No Known Allergies Allergy (Verified 12/29/16 13:26) - Physical Exam Vital Signs Temp Pulse Resp BP Pulse Ox 96 F L 106 H 14 108/68 96 11/04/17 17:52 11/04/17 17:52 11/04/17 17:52 11/04/17 17:52 11/04/17 17:52 Oxygen Delivery Method Room Air Weight: 96 kg Body Mass Index (BMI) 27.9 Intake and Output for Last 24 Hours 11/02/17 11/03/17 11/04/17 23:59 23:59 23:59 Output Total 600 / 600 Balance -600 / -600 Microbiology Past 72 Hours 11/04/17 17:50 Stool Lactoferrin - Final Stool POC Glucose 11/04/17 18:20 POC Glucose 143 H Assessment/Plan Patient seen and examined with physician doctor assistant, Shane Butler. I agree with his above documented history, physical exam, and assessment and plan. 57-year-old male with past medical history of schizoaffective disorder, hypertension, hyperlipidemia, type II DM, chronic constipation alternating with chronic diarrhea, who is status post ileostomy for intestinal obstruction, 10 days ago. Patient was discharged from the [facility] 2 days ago. He comes in complaining of increased shortness of breath as well as increased output from his ileostomy more than 2400 mls/day. He has associated abdominal distention but denied any fever or chills or cough or chest pain or palpitations. Physical exam; GEN: Obese, appears well hydrated, no jaundice, not pale, appears comfortable CVS: Heart sounds 1 and 2, tachycardia, no murmurs. RESP: Diminished at the lung bases but otherwise vascular breath sounds no added sounds ABD: Right ileostomy, liquid green stools in ostomy bag, abdomen looks distended , soft, nontender EXT: No bilateral leg edema Labs: Leukocytosis with WBC count of 14.3, hemoglobin of 18.4, baseline hemoglobin of about 15-16 , platelet count of 390, d-dimer was 1.45, sodium 135 , potassium 4.6, chloride 101, bicarbonate 18, BUN is 17, creatinine is 3.49, baseline creatinine of about 1, troponins is negative, lactic acid 2.2, glucose 202 Imaging: Chest x-ray is negative. A/P: 1. Severe sepsis, unclear etiology, doubt that patient has infection. Elevated lactic acid could very well be related to hypoxia, will trend 2. Increased output from ileostomy site, status post recent ileostomy, consult general surgery 3. Elevated hemoglobin, in a patient with baseline hemoglobin of 15-16, questionable chronic hypoxia vs polycythemia 4. LUIS ANTONIO on CKD, baseline creatinine of 1 5. Anion gap secondary to LUIS ANTONIO 6. Elevated d-dimer, tachycardia concerning for possible PE, Doppler ultrasound in the ED has been negative, cannot do CTA PE protocol because of LUIS ANTONIO , will do VQ scan 7. Hyperglycemia in a known type II diabetic 8. Hypertension, controlledf 9. Hyperlipidemia 10.Schizoaffective disorder 11.DVT prophylaxis with Lovenox subcu Blood cultures ?2, will start on empiric Zosyn pending blood cultures as we do not have a new of infection, will monitor Stool cultures, stool for C. difficile, stool for enteric panel, place and contact isolation for now We will continue most of his medications, hold lisinopril, hold Janumet, continue on IV fluids, labs in a.m., VQ scan in a.m. as radiology appears to have left for the day. We will consult general surgery, wound nurse to assist with management of ileostomy, since he had a recent surgery. We will start patient on 1 dose of therapeutic Lovenox pending results of VQ scan Code Visit Inpatient E&M: 95665 Init Hosp L3
[2017-11-04] MEDS: Enoxaparin 100 MG/ML Syringe 90 MG SC (18:15)
[2017-11-04] MEDS: 0.9% Normal Saline 1,000 ML 75 ML IV (18:50)
[2017-11-04 19:01] LABS: Bedside Glucose 143 mg/dL (70-110)
[2017-11-04 19:09] LABS: Reflex Lactate? Y
--- NOTE | 2017-11-04 19:15 | PCM.CONS.GEN ---
Reason for Consult Date of Consultation: 11/04/17 History of Present Illness: The patient is a 57 year old M with a history of chronic severe constipation, hypertension, hyperlipidemia, diabetes, COPD, anxiety and hallucinations/schizoaffective disorder. I attempted to perform colonoscopy on the patient in 2006. He stated he completed his complete bowel prep at that time. his colonoscopy had a poor prep and he was unable to be completely evaluated. He has since been evaluated clinically and clinic main campus. His workup concluded that he had an overall chronic constipation with decreased colonic transit and outlet-type obstruction. Decision was made to perform a loop ileostomy. The patient underwent attempted colonoscopy which again demonstrated incomplete preparation and laparoscopic loop ileostomy on October 25. Diagnostic laparoscopy demonstrated no obvious abnormalities. A loop ileostomy was created over a stoma bar. Postoperatively, the patient agree of an ileus requiring an nasogastric tube. He had return of bowel function, the nasogastric tube was removed and the patient was tolerating a diet at discharge on November 02, 2017. notably, the patient had relatively balanced. Input and output during the last 2 days of hospitalization. On November 02, the patient's hemoglobin was 13.4, BUN was 9 and creatinine was 0.75 the patient presents now to [facility] emergency department with a complaint of shortness of breath. He had a blood pressure of 83/60, when he presented. Chest x-ray no acute abnormality. Ultrasound lower extremities shows no DVT. EKG sinus tachycardia 123. No acute signs of ischemia. CBC shows a white count of 14 H&H 18 and 15. No bands. Electrolytes sodium 135. CO2 18. BUN 27 creatinine 3.49. Anion gap 16. Upon normal. D-dimer slightly elevated 1.45 lactic acid 2.8. since fluid rehydration, the patient is noted resolution of her shortness of breath. He is currently on the floor in the PCU comfortable watching television. He has noted higher stoma output for the past 2 days. Past Medical History Past Medical History (Chronic Problems): Chronic Problems S/P ileostomy (Chronic) HTN (hypertension) (Chronic) Diabetes mellitus (Chronic) HLD (hyperlipidemia) (Chronic) Schizoaffective disorder (Chronic) Nicotine abuse (Chronic) Allergies No Known Allergies Allergy (Verified 12/29/16 13:26) Home Medications: Ambulatory Orders Medication Instructions Recorded Atenolol [Tenormin (beta Gabby)] 25 mg PO BID 02/15/15 Clozapine [Clozaril] 25 mg PO DAILY 02/15/15 Lisinopril [Zestril] 2.5 mg PO DAILY 02/15/15 Lorazepam [Ativan] 2 mg PO DAILY PRN PRN 02/15/15 Lovastatin [Mevacor] 10 mg PO DAILY 02/15/15 Montelukast [Singulair] 10 mg PO DAILY 02/15/15 [place]-3 Fatty Acids/Fish Oil 1 cap PO .COMPLEX 02/15/15 [[place] 3 Fish Oil Softgel] Propranolol HCl [Inderal] 10 mg PO DAILY 02/15/15 Sitagliptin Phos/Metformin HCl 1 tablet PO BIDCM 02/15/15 [Janumet 50-1,000 MG Tablet] Lubiprostone [Amitiza] 24 mcg PO BID 12/29/16 Aspirin [Aspirin EC] 81 mg PO DAILY 11/04/17 Cyanocobalamin (Vitamin B-12) 1,000 mcg PO DAILY 11/04/17 [Vitamin B-12] Linaclotide [Linzess] 290 mg PO BID 11/04/17 Niacinamide [Niacin] 500 mg PO DAILY 11/04/17 Perphenazine [Perphenazine] 8 mg PO 4X/DAY 11/04/17 Surgical History: - - ileostomy Psychiatric History: - - schizoaffective Lives: With Family Smoking Status: Current every day smoker Tobacco Use: Cigarettes Alcohol: Occasional Drugs: None - *Family History Maternal History Items: High Cholesterol Paternal History Items: Unknown Review of Systems Constitutional: Denies: Chills, Fever, Weight Change HEENT: Denies: Head Aches, Sinus Congestion, Sinus Drainage Cardiovascular: Denies: Chest Pain, Palpitations Respiratory: Reports: Shortness of Breath. Denies: Cough, Shortness of breath at rest, Sputum production Gastrointestinal: Denies: Abdominal Pain, Nausea, Vomiting Genitourinary: Denies: Dysuria Musculoskeletal: Denies: Joint Pain, Joint Tenderness Skin: Denies: Rash, Wounds Neurological: Denies: Numbness, Tingling, Focal weakness Psychiatric: Denies: Anxiety, Depression, Homicidal Ideations, Suicidal Ideations Hematologic/ Lymphatic: Denies: Easy Bruising, Easy Bleeding Patient Problems: Active and Suspected Problems SIRS (systemic inflammatory response syndrome) (Acute) LUIS ANTONIO (acute kidney injury) (Acute) - Physical Exam General: Alert, Oriented x3 HEENT: Atraumatic, PERRLA, EOMI, Normocephalic Lungs: Clear to auscultation, Normal air movement Cardiovascular: Regular rate, No murmurs Abdomen: Bowel Sounds Present, Soft - mildly distended, right lower quadrant loop ileostomy in place. There are 2 lumen noted. The superior is the larger the inferior the smaller/likely colonic event. The patient has normal-appearing ileostomy output. There is some chronic induration/edema on the lateral side of the stoma. This is likely where the stoma bar was present that the patient noted was removed before discharge. Otherwise, his stoma looks entirely healthy. There is no erythema around the stoma. Vital Signs Temp Pulse Resp BP Pulse Ox 96 F L 106 H 14 108/68 96 11/04/17 17:52 11/04/17 17:52 11/04/17 17:52 11/04/17 17:52 11/04/17 17:52 Oxygen Delivery Method Room Air Weight: 96 kg Body Mass Index (BMI) 27.9 Intake and Output for Last 24 Hours 11/02/17 11/03/17 11/04/17 23:59 23:59 23:59 Output Total 600 / 600 Balance -600 / -600 Microbiology Past 72 Hours 11/04/17 17:50 Stool Lactoferrin - Final Stool POC Glucose 11/04/17 18:20 POC Glucose 143 H Assessment/Plan All Active Problems SIRS (systemic inflammatory response syndrome) (Acute) LUIS ANTONIO (acute kidney injury) (Acute) likely dehydration from high stoma output, history of chronic constipation, shortness of breath, doubt PE clinically, history of schizoaffective disorder I would recommend obtaining an abdominal multiview just to assess for bowel gas pattern. I would monitor strict ins and outs to assess the total ileostomy output. Ironically given his motility disorders, if his output is high somatostatin or other agent may be needed temporarily. I anticipate with adequate hydration. His electrode central function will improve. Agree with plan for a VQ scan the morning, but do not feel that CT angiogram is necessary. Clinically, given his improvement in symptoms compared to the risk of renal injury given his dehydrated status.
[2017-11-04 20:36] LABS: Lactic Acid 1.3 mmol/L (0.4-2.0)
[2017-11-04] MEDS: Piperacil/Tazobactam 3.375 GM/50 ML ML IV (21:59)
[2017-11-04] MEDS: Insulin Lispro 100 UNIT/ML INSULN.PEN SQ (22:09)
[2017-11-04] MEDS: Atenolol 25 MG Tablet PO (22:10)
[2017-11-04] MEDS: Omega-3 Acid Ethyl Esters 1 GM Capsule 2 GM PO (22:10)
[2017-11-04] MEDS: Glucerna Shake 120 ML LIQUID PO (22:11)
[2017-11-04] MEDS: Acetaminophen 325 MG Tablet 650 MG PO (22:32)
[2017-11-04 23:25] LABS: Bedside Glucose 161 mg/dL (70-110)
[2017-11-05] VITALS (11 sets, daily range): BP systolic 104–114; BP diastolic 67–78; PULSE 72–100; RESP 14–20; TEMP 36–37.2; O2SAT 95–97
--- NOTE | 2017-11-05 05:30 | RAD_ITS ---
STUDY: X-RAY - ABDOMEN/PELVIS REASON FOR EXAM: Male, 57 years old. Diarrhea TECHNIQUE: 5 views, including multiple decubitus views. COMPARISON: 08/31/2016 FINDINGS: Normal visualized lung bases. Multiple air-fluid levels are present within small and large bowel which could suggest enteritis. Single dilated small bowel loop is present centrally measuring 4.4 cm. [place] loop cannot be excluded. Consider CT correlation if clinically indicated. There is no demonstrated free abdominal air. The visualized liver, spleen and kidneys are grossly normal in size and morphology. Normal soft tissue structures. Normal visualized osseous structures. RAD/Abd Inc Decub and/or Erect IMPRESSION: Multiple air-fluid levels are present within small and large bowel which could suggest enteritis. Single dilated small bowel loop is present centrally measuring 4.4 cm. [place] loop cannot be excluded. Consider CT correlation if clinically indicated. Electronically Signed: Marques Bermudez MD at 5:05 EDT Tel , Service support ,
[2017-11-05 06:06] LABS: Absolute Lymphocyte Count 1.93 X10^3/ul (0.83-4.51); Absolute Neutrophil Count 5.5 X10^3/uL (2.0-7.7); Basophil# 0.02 X10^3/uL; Basophil% 0.2 % (0-1); Eosinophil# 0.14 X10^3/uL; Eosinophils% 1.6 % (0-5); Hematocrit 46.8 % (40-54); Hemoglobin 16.3 g/dl (13.0-16.5); Lymphocyte # 1.93 X10^3/ul (4.0); Lymphocyte % 21.7 % (19-41); Mean Corp Hgb Conc 34.8 g/gl (32-36); Mean Corpuscular Hgb 29.6 pg (27.0-32.0); Mean Corpuscular Volume 84.9 fL (80-94); Mean Platelet Vol. 10.7 fl (6.2-12.0); Monocyte# 1.26 X10^3/uL; Monocyte% 14.2 % (0-10); Neutrophil # 5.51 X10^3/uL (2.7-7.7); Neutrophil % 61.9 % (47-70); Platelet Count 264 K/mm3 (150-450); RBC Distribution Width CV 13.2 % (11.6-14.6); RBC Distribution Width SD 40.8 fl (35.1-43.9); Red Blood Count 5.51 M/mm3 (4.6-6.2); White Blood Count 8.9 K/mm3 (4.4-11.0)
[2017-11-05 06:12] LABS: POSITIVE COUNT NO; POSITIVE DIFFERENTIAL NO; POSITIVE MORPHOLOGY NO
[2017-11-05 06:24] LABS: Anion Gap 12 (5-15); BUN 33 mg/dL (7-18); BUN/Creat Ratio 19.3 RATIO (10-20); Calcium,Total 8.6 mg/dL (8.5-10.1); Chloride 107 mmol/L (98-107); Creatinine, Serum 1.71 mg/dL (0.70-1.30); EST Glomerular Filtration Rate 44 mL/min (>60); Est Glom Filt Rate - Afr Amer 54 mL/min (>60); Estimated Creatinine Clearance 55.16 ml/min; Glucose 159 mg/dL (74-106); Sodium Level 136 mmol/L (136-145)
[2017-11-05] MEDS: Piperacil/Tazobactam 3.375 GM/50 ML ML IV (07:02)
[2017-11-05] MEDS: 0.9% Normal Saline 1,000 ML 75 ML IV ×2 (07:03→21:03)
[2017-11-05 07:10] LABS: Bedside Glucose 169 mg/dL (70-110)
[2017-11-05] MEDS: Insulin Lispro 100 UNIT/ML INSULN.PEN SQ ×3 (07:58→16:11)
--- NOTE | 2017-11-05 09:28 | NURSING ---
Was called to see patient for a leaking ostomy. Pt is s/p lap loop ileostomy on 10/25/17 at [facility] for chronic constipation. pt presented to the ED for shortness of breath. Pt states that he has had increased output from the ileostomy for the last couple of days. Pt was just discharged from [facility] on 11/02/17. Unsure of patient had home health arranged at home or not, but has lots of questions about the ostomy care and when he should be emptying the appliance. in to assess the leak and the appliance was just sitting on the bed beside him, and there was liquid stool all over his gown and bed. stool is watery green/brown with the few flecks. pt being tested for c-diff. appears to be normal ileostomy output. there is some slight redness to the peristomal skin, most likely from stool leakage. stoma appears normal and is beefy red in color. there is a small area of edema noted to the lateral portion on the stoma. stoma measures approx 1 3/8 and is slightly oval in shape. stoma is well budded. abdomen is round and slightly distended. patient states he has been eating well. will give patient a list of foods that may help thicken the stool. educated patient in the signs of dehydration and how to avoid it. patient states he has been drinking well at home. pt aware to avoid sugary drinks. cleansed peristomal skin with Dial soap and water. applied a 2 piece flat [place] appliance with an Isaak ring. pt tolerated well. Dr Umanzor had also been in to see patient this am. pt denies further needs at this time. will monitor and continue ostomy teaching. would definitely recommend Home Health care at discharge to assist with ostomy care.
[2017-11-05] MEDS: Montelukast 10 MG Tablet PO (09:41)
[2017-11-05] MEDS: Aspirin E.C. 81 MG Tablet PO (09:41)
[2017-11-05] MEDS: Atenolol 25 MG Tablet PO ×2 (09:41→21:03)
[2017-11-05] MEDS: Niacin SA 500 MG Tablet PO (09:41)
[2017-11-05] MEDS: Cyanocobalamin 500 MCG Tablet 1000 MCG PO (09:41)
[2017-11-05] MEDS: Heparin Injection (Vial) 5,000 UNIT/ML VIAL 5000 UNIT SC ×2 (09:42→21:03)
[2017-11-05] MEDS: Omega-3 Acid Ethyl Esters 1 GM Capsule 3 GM PO (09:42)
[2017-11-05] MEDS: Glucerna Shake 120 ML LIQUID PO ×3 (09:46→21:06)
[2017-11-05] MEDS: LINACLOTIDE 145 MCG CAPSULE 290 MCG PO (09:54)
[2017-11-05 11:41] LABS: Bedside Glucose 191 mg/dL (70-110)
--- NOTE | 2017-11-05 14:43 | PCM.PROGNOTE ---
Patient Problems: Active and Suspected Problems SIRS (systemic inflammatory response syndrome) (Acute) LUIS ANTONIO (acute kidney injury) (Acute) Subjective: Pt without abdominal pain today. No SOB. Continues to have voluminous output from his ostomy. He also is having difficulty emptying his bladder and did require a kulkarni cath during his last hospital stay. He is retaining today and will have a cath. No fevers or chills. No dysuria. No cough. No CP. - Physical Exam General: Alert, Oriented x3, Cooperative HEENT: Atraumatic, PERRLA, EOMI, Normocephalic Neck: Supple, No JVD, Negative Carotid Bruits Lungs: Clear to auscultation, Normal air movement Cardiovascular: Regular rate, No murmurs Abdomen: Bowel Sounds Present, Soft, Non Tender Extremities: No edema, Capillary Refill Less than 3 Seconds Skin: No rashes, No breakdown Musculoskeletal: No Tenderness to Palpation of Joints or Extremities Neurological: Cranial nerves II-XII grossly intact Psych/Mental Status: Appropriate, Flat Affect, Alert and oriented to time, place, person, mood and affect Vital Signs Temp Pulse Resp BP Pulse Ox 98.9 F 94 14 104/78 96 11/05/17 14:37 11/05/17 14:37 11/05/17 14:37 11/05/17 14:37 11/05/17 14:37 Oxygen Delivery Method Room Air Weight: 96 kg Body Mass Index (BMI) 27.9 Intake and Output for Last 24 Hours 11/03/17 11/04/17 11/05/17 23:59 23:59 23:59 Intake Total 2269 / 2269 Output Total 600 / 600 2500 / 2500 Balance -600 / -600 -231 / -231 Microbiology Past 72 Hours 11/04/17 17:50 Enteric Bacteriology - Final Stool 11/04/17 17:50 C. difficile DNA Amplification - Final Stool 11/04/17 17:50 Stool Lactoferrin - Final Stool Laboratory Tests Past 24 Hrs 11/04/17 11/05/17 11/05/17 19:42 05:50 05:50 WBC 8.9 RBC 5.51 Hgb 16.3 Hct 46.8 MCV 84.9 MCH 29.6 MCHC 34.8 RDW 13.2 RDW Differential 40.8 Plt Count 264 MPV 10.7 Immature Gran % (Auto) 0.400 Neut % (Auto) 61.9 Lymph % (Auto) 21.7 [place] % (Auto) 14.2 H Eos % (Auto) 1.6 Baso % (Auto) 0.2 Absolute Neuts (auto) 5.5 Absolute Lymphs (auto) 1.93 Total Counted Not Reportable Sodium 136 Potassium 4.0 Chloride 107 Carbon Dioxide 17.0 L Anion Gap 12 BUN 33 H Creatinine 1.71 H Estim Creat Clear Calc 55.16 Est GFR (MDRD) Af Amer 54 L Est GFR (MDRD) Non-Af 44 L BUN/Creatinine Ratio 19.3 Glucose 159 H Lactic Acid 1.3 Calcium 8.6 POC Glucose 11/05/17 11/05/17 11/04/17 11:30 06:58 22:07 POC Glucose 191 H 169 H 161 H 11/04/17 18:20 POC Glucose 143 H Medical Necessity - Tobacco Use Smoking Status: Current every day smoker Tobacco Use: Cigarettes Assessment/Plan All Active Problems SIRS (systemic inflammatory response syndrome) (Acute) LUIS ANTONIO (acute kidney injury) (Acute) 1. Acute severe sepsis present on admission 2/2 gastroenteritis suspect viral - resolving. Vitals now stabilized and leukocytosis resolved. KUB showed enteritis, suspect sepsis 2/2 gastroenteritis given large ostomy output. Also shows multiple air fluid levels, single dilated loot 4.4 cm. C diff neg. Enteric panel neg. Surgery is following. -CTA was negative for PE. -LA now resolved -blood cx pending. 2. LUIS ANTONIO - 2/2 dehydration 2/2 above. Improved significantly. 3. s/p ileostomy - recent DC after undergoing this procedure with 8 day hospital stay in [facility]. 4. HTN - home meds, Hold lisinopril 5. HLD - statin held. 6. DMt2 - orals held, SSI 7. Schizoaffective disorder - continue home meds. DVT ppx: SCDs DC planning: lives with family. PTOT - Recent prolonged hospital stay, likely deconditioned. This patient was seen by Shane Butler PA-C under the supervision of Doctor Robles.
--- NOTE | 2017-11-05 14:50 | CHAPLAIN ---
Type of Pastoral Visit _x__ Initial Visit ___ Follow-up Visit ___ On-call Visit ___ General Patient Visit ___ Spiritual Assessment ___ Family Conference ___ Bereavement ___ Rapid Response ___ Code Blue ___ Other (describe below) Pastoral Care Referral From _x__ Patient ___ Family ___ Nurse ___ Physician ___ Plastic Sheets Finishing Supervisor ___ Deep Fat Fry Cook ___ Other (describe below) Sacrament/Intervention _x__ Active listening ___ Anointing ___ Yazdanism ___ Bereavement ___ Communion ___ Cat exploration ___ ___ Life review _x__ Prayer ___ Reconciliation ___ Sacrament of Sick ___ Supportive presence ___ Wedding ___ Other (describe below) Pastoral Comments
--- NOTE | 2017-11-05 15:03 | CASEMGMT ---
CM INITIAL ASSESSMENT: Home: Pt states lives with mother and stepfather in 2 story home and he states that he lives in the basement apartment with his own kitchen and bathroom. Pt states no concerns at home at this time. PCP: Nikhil Specialists: Psychiatrist, states his retired and is supposed to be getting a new one. List to be provided. Pharmacy: [facility] Social: Pt states quit smoking 3 days ago and drinks 6 ETOH beverages/month. Pt states parents drive or he is also set up with taxi program. Pt states no concerns with ADL's at this time. Pt states has a raised toilet and grab bars as DME at home at this time and states no need for any further DME at this time. Therapy is recommending further skilled therapy. Pt states was just discharged from [facility] 2 days ago s/p new ileostomy and had [facility] set up to open today. New order for RN and PT/OT placed at this time and [facility] aware. Green sheet left on chart. DC Plan: Home w/ [facility].
--- NOTE | 2017-11-05 15:53 | PN.SURG_ITS ---
Patient Problems: Active and Suspected Problems SIRS (systemic inflammatory response syndrome) (Acute) LUIS ANTONIO (acute kidney injury) (Acute) Subjective: no shortness of breath, hungry, still significant ileostomy output - Physical Exam General: Alert, Oriented x3 Lungs: Clear to auscultation, Normal air movement Cardiovascular: Regular rate, Regular Rhythm Vital Signs Temp Pulse Resp BP Pulse Ox 98.9 F 95 14 104/78 96 11/05/17 14:37 11/05/17 15:01 11/05/17 14:37 11/05/17 14:37 11/05/17 14:37 Oxygen Delivery Method Room Air Weight: 96 kg Body Mass Index (BMI) 27.9 Intake and Output for Last 24 Hours 11/03/17 11/04/17 11/05/17 23:59 23:59 23:59 Intake Total 2269 / 2269 Output Total 600 / 600 2500 / 2500 Balance -600 / -600 -231 / -231 Microbiology Past 72 Hours 11/04/17 17:50 Enteric Bacteriology - Final Stool 11/04/17 17:50 C. difficile DNA Amplification - Final Stool 11/04/17 17:50 Stool Lactoferrin - Final Stool Laboratory Tests Past 24 Hrs 11/04/17 11/05/17 11/05/17 19:42 05:50 05:50 WBC 8.9 RBC 5.51 Hgb 16.3 Hct 46.8 MCV 84.9 MCH 29.6 MCHC 34.8 RDW 13.2 RDW Differential 40.8 Plt Count 264 MPV 10.7 Immature Gran % (Auto) 0.400 Neut % (Auto) 61.9 Lymph % (Auto) 21.7 [place] % (Auto) 14.2 H Eos % (Auto) 1.6 Baso % (Auto) 0.2 Absolute Neuts (auto) 5.5 Absolute Lymphs (auto) 1.93 Total Counted Not Reportable Sodium 136 Potassium 4.0 Chloride 107 Carbon Dioxide 17.0 L Anion Gap 12 BUN 33 H Creatinine 1.71 H Estim Creat Clear Calc 55.16 Est GFR (MDRD) Af Amer 54 L Est GFR (MDRD) Non-Af 44 L BUN/Creatinine Ratio 19.3 Glucose 159 H Lactic Acid 1.3 Calcium 8.6 POC Glucose 11/05/17 11/05/17 11/04/17 11:30 06:58 22:07 POC Glucose 191 H 169 H 161 H 11/04/17 18:20 POC Glucose 143 H Medical Necessity - Tobacco Use Smoking Status: Current every day smoker Tobacco Use: Cigarettes Assessment/Plan All Active Problems SIRS (systemic inflammatory response syndrome) (Acute) LUIS ANTONIO (acute kidney injury) (Acute) likely dehydration from high stoma output, history of chronic constipation, shortness of breath, doubt PE clinically, history of schizoaffective disorder abdominal multiview demonstrates no obstructive pattern. I would monitor strict ins and outs to assess the total ileostomy output. 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 Neither no stool cultures are negative.. I anticipate with adequate hydration, his electrolytes continue to improve. VQ scan negative.
[2017-11-05 16:17] LABS: Bedside Glucose 157 mg/dL (70-110)
[2017-11-05] MEDS: Omega-3 Acid Ethyl Esters 1 GM Capsule 2 GM PO (21:03)
[2017-11-05] MEDS: Octreotide 0.1 MG/ML ML 0.05 MG SC (21:03)
[2017-11-05 22:00] LABS: Bedside Glucose 140 mg/dL (70-110)
[2017-11-06] VITALS (12 sets, daily range): BP systolic 104–121; BP diastolic 67–82; PULSE 70–89; RESP 16–18; TEMP 36.3–36.8; O2SAT 94–99
[2017-11-06] MEDS: Octreotide 0.1 MG/ML ML 0.05 MG SC (06:43)
[2017-11-06 06:51] LABS: Absolute Neutrophil Count 5.5 X10^3/uL (2.0-7.7); Basophil# 0.03 X10^3/uL; Basophil% 0.3 % (0-1); Eosinophil# 0.17 X10^3/uL; Eosinophils% 1.7 % (0-5); Hematocrit 45.1 % (40-54); Hemoglobin 15.4 g/dl (13.0-16.5); Lymphocyte % 26.3 % (19-41); Mean Corp Hgb Conc 34.1 g/gl (32-36); Mean Corpuscular Hgb 28.9 pg (27.0-32.0); Mean Corpuscular Volume 84.8 fL (80-94); Mean Platelet Vol. 10.9 fl (6.2-12.0); Monocyte# 1.46 X10^3/uL; Monocyte% 14.8 % (0-10); Neutrophil # 5.54 X10^3/uL (2.7-7.7); Neutrophil % 56.2 % (47-70); Platelet Count 280 K/mm3 (150-450); RBC Distribution Width CV 13.5 % (11.6-14.6); RBC Distribution Width SD 41.4 fl (35.1-43.9); Red Blood Count 5.32 M/mm3 (4.6-6.2); White Blood Count 9.9 K/mm3 (4.4-11.0)
[2017-11-06 07:06] LABS: Bedside Glucose 147 mg/dL (70-110)
[2017-11-06 07:20] LABS: POSITIVE COUNT NO; POSITIVE DIFFERENTIAL NO; POSITIVE MORPHOLOGY NO
--- NOTE | 2017-11-06 08:14 | PN.SURG_ITS ---
Patient Problems: Active and Suspected Problems SIRS (systemic inflammatory response syndrome) (Acute) LUIS ANTONIO (acute kidney injury) (Acute) Subjective: still high volume output - Physical Exam General: Alert, Oriented x3, Cooperative Abdomen: Bowel Sounds Present, Soft, Non Tender, - - ileostomy with large volume brown liquid output Vital Signs Temp Pulse Resp BP Pulse Ox 98.3 F 70 16 118/74 96 11/06/17 02:37 11/06/17 06:54 11/06/17 02:37 11/06/17 02:37 11/06/17 02:37 Oxygen Delivery Method Room Air Weight: 96 kg Body Mass Index (BMI) 27.9 Intake and Output for Last 24 Hours 11/04/17 11/05/17 11/06/17 23:59 23:59 23:59 Intake Total 3152 / 3152 1593 / 1593 Output Total 600 / 600 4050 / 4050 2575 / 2575 Balance -600 / -600 -898 / -898 -982 / -982 Microbiology Past 72 Hours 11/04/17 17:50 Enteric Bacteriology - Final Stool 11/04/17 17:50 C. difficile DNA Amplification - Final Stool 11/04/17 17:50 Stool Lactoferrin - Final Stool Laboratory Tests Past 24 Hrs 11/06/17 05:55 WBC 9.9 RBC 5.32 Hgb 15.4 Hct 45.1 MCV 84.8 MCH 28.9 MCHC 34.1 RDW 13.5 RDW Differential 41.4 Plt Count 280 MPV 10.9 Immature Gran % (Auto) 0.700 Neut % (Auto) 56.2 Lymph % (Auto) 26.3 [place] % (Auto) 14.8 H Eos % (Auto) 1.7 Baso % (Auto) 0.3 Absolute Neuts (auto) 5.5 Absolute Lymphs (auto) 2.60 Total Counted Not Reportable POC Glucose 11/06/17 11/05/17 11/05/17 06:47 21:16 16:08 POC Glucose 147 H 140 H 157 H 11/05/17 11:30 POC Glucose 191 H Medical Necessity - Tobacco Use Smoking Status: Current every day smoker Tobacco Use: Cigarettes Assessment/Plan All Active Problems SIRS (systemic inflammatory response syndrome) (Acute) LUIS ANTONIO (acute kidney injury) (Acute) likely dehydration from high stoma output, history of chronic constipation, shortness of breath, doubt PE clinically, history of schizoaffective disorder abdominal multiview demonstrates no obstructive pattern. I would monitor strict ins and outs to assess the total ileostomy output. Ironically given his history of hypo-motility disorders, I would increase somatostatin, add fiber and immodium to see if we can decrease his output. No stool cultures are negative.. I anticipate with adequate hydration, his electrolytes continue to improve. VQ scan negative.
[2017-11-06 08:36] LABS: Anion Gap 10 (5-15); BUN 28 mg/dL (7-18); BUN/Creat Ratio 24.1 RATIO (10-20); Calcium,Total 8.3 mg/dL (8.5-10.1); Chloride 108 mmol/L (98-107); Creatinine, Serum 1.16 mg/dL (0.70-1.30); EST Glomerular Filtration Rate 69 mL/min (>60); Est Glom Filt Rate - Afr Amer 84 mL/min (>60); Estimated Creatinine Clearance 81.32 ml/min; Glucose 137 mg/dL (74-106); Potassium 3.6 mmol/L (3.5-5.1); Sodium Level 136 mmol/L (136-145)
[2017-11-06] MEDS: Octreotide 0.1 MG/ML ML SC (09:10)
[2017-11-06] MEDS: Aspirin E.C. 81 MG Tablet PO (09:12)
[2017-11-06] MEDS: Heparin Injection (Vial) 5,000 UNIT/ML VIAL 5000 UNIT SC ×2 (09:12→21:22)
[2017-11-06] MEDS: Omega-3 Acid Ethyl Esters 1 GM Capsule 3 GM PO (09:13)
[2017-11-06] MEDS: LINACLOTIDE 145 MCG CAPSULE 290 MCG PO (09:13)
[2017-11-06] MEDS: Niacin SA 500 MG Tablet PO (09:14)
[2017-11-06] MEDS: Montelukast 10 MG Tablet PO (09:15)
[2017-11-06] MEDS: Cyanocobalamin 500 MCG Tablet 1000 MCG PO (09:15)
[2017-11-06] MEDS: 0.9% Normal Saline 1,000 ML 75 ML IV (10:36)
[2017-11-06] MEDS: Insulin Lispro 100 UNIT/ML INSULN.PEN SQ ×2 (11:19→21:22)
[2017-11-06 11:21] LABS: Bedside Glucose 215 mg/dL (70-110)
[2017-11-06] MEDS: Psyllium 1 PACKET PO ×2 (11:24→21:29)
--- NOTE | 2017-11-06 12:03 | CASEMGMT ---
Provided a list of behavioral health / psychiatry providers that are in network for patient's insurance. Patient thanks
--- NOTE | 2017-11-06 13:41 | PN_ITS ---
Patient Problems: Active and Suspected Problems SIRS (systemic inflammatory response syndrome) (Acute) LUIS ANTONIO (acute kidney injury) (Acute) Subjective: Patient feels significantly improved. Feels his abdominal distention is resolved. He has no abdominal pain. Still has high output from ileostomy. No fever or chills. No cough, no SOB. - Physical Exam General: Alert, Oriented x3, Cooperative HEENT: Atraumatic, PERRLA, EOMI, Normocephalic Neck: Supple, No JVD, Negative Carotid Bruits Lungs: Clear to auscultation, Normal air movement Cardiovascular: Regular rate, No murmurs Abdomen: Bowel Sounds Present, Soft, Non Tender Extremities: No edema, Capillary Refill Less than 3 Seconds Skin: No rashes, No breakdown Musculoskeletal: No Tenderness to Palpation of Joints or Extremities Neurological: Cranial nerves II-XII grossly intact Psych/Mental Status: Normal Affect, Appropriate, Alert and oriented to time, place, person, mood and affect Vital Signs Temp Pulse Resp BP Pulse Ox 97.6 F L 70 16 104/67 97 11/06/17 08:37 11/06/17 10:59 11/06/17 08:37 11/06/17 08:37 11/06/17 08:37 Oxygen Delivery Method Room Air Weight: 96 kg Body Mass Index (BMI) 27.9 Intake and Output for Last 24 Hours 11/04/17 11/05/17 11/06/17 23:59 23:59 23:59 Intake Total 3152 / 3152 2634 / 2634 Output Total 600 / 600 4050 / 4050 3150 / 3150 Balance -600 / -600 -898 / -898 -516 / -516 Microbiology Past 72 Hours 11/04/17 17:50 Enteric Bacteriology - Final Stool 11/04/17 17:50 C. difficile DNA Amplification - Final Stool 11/04/17 17:50 Stool Lactoferrin - Final Stool Laboratory Tests Past 24 Hrs 11/06/17 11/06/17 05:55 05:55 WBC 9.9 RBC 5.32 Hgb 15.4 Hct 45.1 MCV 84.8 MCH 28.9 MCHC 34.1 RDW 13.5 RDW Differential 41.4 Plt Count 280 MPV 10.9 Immature Gran % (Auto) 0.700 Neut % (Auto) 56.2 Lymph % (Auto) 26.3 [place] % (Auto) 14.8 H Eos % (Auto) 1.7 Baso % (Auto) 0.3 Absolute Neuts (auto) 5.5 Absolute Lymphs (auto) 2.60 Total Counted Not Reportable Sodium 136 Potassium 3.6 Chloride 108 H Carbon Dioxide 18.0 L Anion Gap 10 BUN 28 H Creatinine 1.16 Estim Creat Clear Calc 81.32 Est GFR (MDRD) Af Amer 84 Est GFR (MDRD) Non-Af 69 BUN/Creatinine Ratio 24.1 H Glucose 137 H Calcium 8.3 L POC Glucose 11/06/17 11/06/17 11/05/17 11:10 06:47 21:16 POC Glucose 215 H 147 H 140 H 11/05/17 16:08 POC Glucose 157 H Medical Necessity - Tobacco Use Smoking Status: Current every day smoker Tobacco Use: Cigarettes Assessment/Plan All Active Problems SIRS (systemic inflammatory response syndrome) (Acute) LUIS ANTONIO (acute kidney injury) (Acute) 1. Acute severe sepsis present on admission 2/2 gastroenteritis suspect viral - resolved 2. LUIS ANTONIO - 2/2 dehydration 2/2 increased Stoma output. Improved significantly. Decrease fluid rate. Still high output. BUN high, Cr now normalized. 3. s/p ileostomy - recent DC after undergoing this procedure with 8 day hospital stay in [facility]. 4. HTN - home meds, Hold lisinopril 5. HLD - statin held. 6. DMt2 - orals held, SSI 7. Schizoaffective disorder - continue home meds. DVT ppx: SCDs DC planning: DC home with family tomorrow. This patient was seen by Shane Butler PA-C under the supervision of Doctor Robles.
[2017-11-06] MEDS: Glucerna Shake 120 ML LIQUID PO ×2 (14:08→21:22)
[2017-11-06] MEDS: Diphenoxylate/Atrop 1 Tablet 2 TABLET PO ×2 (14:08→21:21)
[2017-11-06 16:36] LABS: Bedside Glucose 131 mg/dL (70-110)
[2017-11-06] MEDS: Omega-3 Acid Ethyl Esters 1 GM Capsule 2 GM PO (21:21)
[2017-11-06] MEDS: Atenolol 25 MG Tablet PO (21:21)
[2017-11-06 21:36] LABS: Bedside Glucose 210 mg/dL (70-110)
[2017-11-07] VITALS (12 sets, daily range): BP systolic 101–122; BP diastolic 70–80; PULSE 70–98; RESP 16–18; TEMP 36.4–36.9; O2SAT 95–100
[2017-11-07] MEDS: 0.9% Normal Saline 1,000 ML 50 ML IV (04:39)
[2017-11-07] MEDS: Diphenoxylate/Atrop 1 Tablet 2 TABLET PO ×2 (06:13→13:54)
[2017-11-07 06:27] LABS: Anion Gap 9 (5-15); BUN 24 mg/dL (7-18); BUN/Creat Ratio 25.8 RATIO (10-20); Calcium,Total 8.2 mg/dL (8.5-10.1); Chloride 111 mmol/L (98-107); Creatinine, Serum 0.93 mg/dL (0.70-1.30); EST Glomerular Filtration Rate 90 mL/min (>60); Est Glom Filt Rate - Afr Amer 108 mL/min (>60); Estimated Creatinine Clearance 101.43 ml/min; Glucose 149 mg/dL (74-106); Potassium 3.7 mmol/L (3.5-5.1); Sodium Level 138 mmol/L (136-145)
--- NOTE | 2017-11-07 06:59 | PCM.PN.SRG ---
Patient Problems: Active and Suspected Problems SIRS (systemic inflammatory response syndrome) (Acute) LUIS ANTONIO (acute kidney injury) (Acute) Subjective: still high output - Physical Exam General: Alert, Oriented x3 Abdomen: Bowel Sounds Present, Soft, - - ileostomy output becoming more solid Vital Signs Temp Pulse Resp BP Pulse Ox 97.5 F L 73 16 122/80 H 100 11/07/17 06:10 11/07/17 06:10 11/07/17 06:10 11/07/17 06:10 11/07/17 06:10 Oxygen Delivery Method Room Air Weight: 96 kg Body Mass Index (BMI) 27.9 Intake and Output for Last 24 Hours 11/05/17 11/06/17 11/07/17 23:59 23:59 23:59 Intake Total 3152 / 3152 4439 / 4439 343 / 343 Output Total 4050 / 4050 5050 / 5050 800 / 800 Balance -898 / -898 -611 / -611 -457 / -457 Microbiology Past 72 Hours 11/04/17 17:50 Enteric Bacteriology - Final Stool 11/04/17 17:50 C. difficile DNA Amplification - Final Stool 11/04/17 17:50 Stool Lactoferrin - Final Stool Laboratory Tests Past 24 Hrs 11/06/17 11/06/17 11/07/17 05:55 05:55 05:35 WBC 9.9 RBC 5.32 Hgb 15.4 Hct 45.1 MCV 84.8 MCH 28.9 MCHC 34.1 RDW 13.5 RDW Differential 41.4 Plt Count 280 MPV 10.9 Immature Gran % (Auto) 0.700 Neut % (Auto) 56.2 Lymph % (Auto) 26.3 [place] % (Auto) 14.8 H Eos % (Auto) 1.7 Baso % (Auto) 0.3 Absolute Neuts (auto) 5.5 Absolute Lymphs (auto) 2.60 Total Counted Not Reportable Sodium 136 138 Potassium 3.6 3.7 Chloride 108 H 111 H Carbon Dioxide 18.0 L 18.0 L Anion Gap 10 9 BUN 28 H 24 H Creatinine 1.16 0.93 Estim Creat Clear Calc 81.32 101.43 Est GFR (MDRD) Af Amer 84 108 Est GFR (MDRD) Non-Af 69 90 BUN/Creatinine Ratio 24.1 H 25.8 H Glucose 137 H 149 H Calcium 8.3 L 8.2 L POC Glucose 11/06/17 11/06/17 11/06/17 21:11 16:26 11:10 POC Glucose 210 H 131 H 215 H 11/06/17 06:47 POC Glucose 147 H Medical Necessity - Tobacco Use Smoking Status: Current every day smoker Tobacco Use: Cigarettes Assessment/Plan All Active Problems SIRS (systemic inflammatory response syndrome) (Acute) LUIS ANTONIO (acute kidney injury) (Acute) likely dehydration from high stoma output, history of chronic constipation, shortness of breath, doubt PE clinically, history of schizoaffective disorder abdominal multiview demonstrates no obstructive pattern. I would monitor strict ins and outs to assess the total ileostomy output. Ironically given his history of hypo-motility disorders, I would continue somatostatin, add fiber and immodium to see if we can decrease his output. No stool cultures are negative.. I anticipate with adequate hydration, his electrolytes continue to improve. VQ scan negative.
[2017-11-07 07:00] LABS: Bedside Glucose 149 mg/dL (70-110)
[2017-11-07] MEDS: LINACLOTIDE 145 MCG CAPSULE 290 MCG PO (09:52)
[2017-11-07] MEDS: Aspirin E.C. 81 MG Tablet PO (09:52)
[2017-11-07] MEDS: Heparin Injection (Vial) 5,000 UNIT/ML VIAL 5000 UNIT SC (09:52)
[2017-11-07] MEDS: Psyllium 1 PACKET PO (09:53)
[2017-11-07] MEDS: Omega-3 Acid Ethyl Esters 1 GM Capsule 3 GM PO (09:53)
[2017-11-07] MEDS: Niacin SA 500 MG Tablet PO ×2 (09:54→09:55)
[2017-11-07] MEDS: Atenolol 25 MG Tablet PO (09:55)
[2017-11-07] MEDS: Montelukast 10 MG Tablet PO (09:55)
[2017-11-07] MEDS: Cyanocobalamin 500 MCG Tablet 1000 MCG PO (09:56)
--- NOTE | 2017-11-07 10:15 | PCM.DC ---
- Discharge Diagnoses Current Active Problems: Current Active and Chronic Problems SIRS (systemic inflammatory response syndrome) (Acute) S/P ileostomy (Chronic) HTN (hypertension) (Chronic) Diabetes mellitus (Chronic) HLD (hyperlipidemia) (Chronic) LUIS ANTONIO (acute kidney injury) (Acute) Schizoaffective disorder (Chronic) Nicotine abuse (Chronic) You will use the following diet at home:: Calorie/Carbohydrate Controlled (specify 1200, 1400, etc) - 1800 julito Your food should be the consistency of: Regular Your liquids should be the consistency of: Regular/Thin Discharge Activity: Return to Normal Activity Weight Bearing Status: Full weight bearing Allergies/Adverse Reactions: Allergies No Known Allergies Allergy (Verified 12/29/16 13:26) Medications to take at Discharge Atenolol [Tenormin (beta vineet)] 25 mg PO DAILY 02/15/15 Clozapine [Clozaril] 100 mg PO BID 02/15/15 Lisinopril [Zestril] 2.5 mg PO DAILY 02/15/15 Lorazepam [Ativan] 2 mg PO BID 02/15/15 Lovastatin [Mevacor] 20 mg PO DAILY 02/15/15 [place]-3 Fatty Acids/Fish Oil [[place] 3 Fish Oil Softgel] 1 cap PO .COMPLEX 02/15/15 Aspirin [Aspirin EC] 81 mg PO DAILY 11/04/17 Cyanocobalamin (Vitamin B-12) [Vitamin B-12] 1,000 mcg PO DAILY 11/04/17 Linaclotide [Linzess] 290 mg PO DAILY 11/04/17 Niacinamide [Niacin] 500 mg PO DAILY 11/04/17 Perphenazine 8 mg PO 4X/DAY 11/04/17 Benztropine [Cogentin] 1 mg PO BID 11/05/17 Pantoprazole Sodium [Protonix] 40 mg PO DAILY 11/05/17 Diphenoxylate/Atrop [Lomotil] 2 tab PO TID #90 tab 11/07/17 Psyllium [Metamucil] 1 packet PO BID packet 11/07/17 Sitagliptin Phos/Metformin HCl [Janumet 50-1,000 MG Tablet] 1 tablet PO BIDCM #1 tablet 11/07/17 The following prescriptions were given: Sitagliptin Phos/Metformin HCl [Janumet 50-1,000 MG Tablet] 1 tablet PO BIDCM #1 tablet Diphenoxylate/Atrop [Lomotil] 2 tab PO TID #90 tab Primary Care Physician: Micheal Tejeda MD [Primary Care Provider] - Please follow up with your Primary Care Physician in: this week Test Results: Test results from this visit will be discussed in further detail at your follow-up appointment, if applicable.
[2017-11-07 11:16] LABS: Bedside Glucose 236 mg/dL (70-110)
[2017-11-07] MEDS: Insulin Lispro 100 UNIT/ML INSULN.PEN SQ (11:41)
[2017-11-07] MEDS: Glucerna Shake 120 ML LIQUID PO ×2 (13:54→16:54)
--- NOTE | 2017-11-07 14:08 | PCM.DC.SUM ---
Discharge Date and Diagnosis - Problem List Patient Problems: Active and Suspected Problems SIRS (systemic inflammatory response syndrome) (Acute) LUIS ANTONIO (acute kidney injury) (Acute) Date of Admission: 11/04/17 Date of Discharge: 11/07/17 - Primary Discharge Diagnosis Active and Suspected Problems Acute severe sepsis secondary to suspected viral gastroenteritis LUIS ANTONIO (acute kidney injury) (Acute) secondary to increased ileostomy output Chronic constipation status post recent ileostomy Hypertension Type 2 diabetes mellitus Hyperlipidemia Schizoaffective disorder Nicotine abuse - Secondary Discharge Diagnosis Chronic Problems S/P ileostomy (Chronic) HTN (hypertension) (Chronic) Diabetes mellitus (Chronic) HLD (hyperlipidemia) (Chronic) Schizoaffective disorder (Chronic) Nicotine abuse (Chronic) Hospital Course and Treatment Imaging Results: RAD/Chest 1 View (Portable) IMPRESSION: Normal x-ray examination of the chest. Venous doppler: Interpretation Summary No evidence for acute deep venous thrombosis bilateral lower extremities with patent and compressible bilateral great saphenous veins. NM/Lung Scan Vent/Perf IMPRESSION: Normal 99m Tc MAA pulmonary perfusion Tc DTPA aerosol ventilation imaging survey, according to revised PIOPED interpretive criteria. RAD/Abd Inc Decub and/or Erect IMPRESSION: Multiple air-fluid levels are present within small and large bowel which could suggest enteritis. Single dilated small bowel loop is present centrally measuring 4.4 cm. Line [place] loop cannot be excluded. Consider CT correlation if clinically indicated. Consultations Erna - gen surgery 11/04/17 18:24 Consult: Onc/Wound/station mechanic helper Routine Comment: Reason for Consult:: new colostomy Operations: None Procedures: None Summary of Care Provided: Physical exam on day of discharge: General: Resting comfortably NAD Psych: A/Ox3 normal affect HEENT: PEARRLA AT NC Neck: Supple NT CV: RRR no m/t/r/g/h Resp: CTA Abd: [id number] Soft NT no guarding or rigidity, no irritation around ileostomy. No further distention. Ext: DP2+= no edema Skin: W/D normal turgor Lymph/Heme: No active bleeding or adenopathy Neuro: CN2-12 intact Hospital course: The patient is a 57 year old M with a past medical history of hypertension, hyperlipidemia, nicotine abuse, chronic constipation, patient is status post ileostomy 9 days prior to presentation, who had been home from the hospital for 2 days. He presented to the emergency room with chief complaint of shortness of breath, he was also found to have some abdominal distention, increased output from his ileostomy. He had LUIS ANTONIO. He had not contacted the general surgeon that had performed the ileostomy. He is found to meet sepsis criteria with lactic acidosis, leukocytosis, tachycardia, tachypnea, low temp. He was admitted to the PCU and had a general surgery consultation. CT of the abdomen demonstrated enteritis. He was felt to be viral gastroenteritis contributing to high output from his ileostomy which likely cause significant dehydration is and thus AK I. The patient did have an elevated d-dimer and with that she is complained of shortness of breath and with tachycardia is felt that PE should be ruled out. Due to his kidney function he could not have a CTA and therefore underwent a VQ scan which did not demonstrate PE. Ultrasound of the lower extremities was also negative. Wound care nursing was consulted for ileostomy care. He was treated with aggressive hydration and holding of nephrotoxic agents. The patient improved dramatically however continue to have high output greater than 3 L per day from his ileostomy. He was started on Metamucil, scheduled Imodium, and also received 1 dose of somatostatin while here. C. difficile was negative and enteric panel was negative. He did have positive lactoferrin. By the day of discharge she had significant decrease in his ileostomy output and had no further symptoms. It was felt that he could be discharged home with close follow-up with his PCP and general surgeon. We advised him to continue the Imodium and Metamucil. We also discontinued his metformin at this time decreased his Januvia as these can contribute to GI upset and diarrhea. He is discharged home in stable condition. This patient was seen by Shane Butler PA-C under the supervision of Doctor Robles. [] Discharge Diet: Low fat/ Low Cholesterol, 1800 Calorie Control Diet, 2000 mg Sodium Diet Discharge Activity: Return to Normal Activity Weight Bearing Status: Full weight bearing Home Medications: Medications to take at Discharge Atenolol [Tenormin (beta vineet)] 25 mg PO DAILY 02/15/15 Clozapine [Clozaril] 100 mg PO BID 02/15/15 Lisinopril [Zestril] 2.5 mg PO DAILY 02/15/15 Lorazepam [Ativan] 2 mg PO BID 02/15/15 Lovastatin [Mevacor] 20 mg PO DAILY 02/15/15 [place]-3 Fatty Acids/Fish Oil [[place] 3 Fish Oil Softgel] 1 cap PO .COMPLEX 02/15/15 Aspirin [Aspirin EC] 81 mg PO DAILY 11/04/17 Cyanocobalamin (Vitamin B-12) [Vitamin B-12] 1,000 mcg PO DAILY 11/04/17 Linaclotide [Linzess] 290 mg PO DAILY 11/04/17 Niacinamide [Niacin] 500 mg PO DAILY 11/04/17 Perphenazine 8 mg PO 4X/DAY 11/04/17 Benztropine [Cogentin] 1 mg PO BID 11/05/17 Pantoprazole Sodium [Protonix] 40 mg PO DAILY 11/05/17 Diphenoxylate/Atrop [Lomotil] 2 tab PO TID #90 tab 11/07/17 Psyllium [Metamucil] 1 packet PO BID packet 11/07/17 Sitagliptin Phos/Metformin HCl [Janumet 50-1,000 MG Tablet] 1 tablet PO BIDCM #1 tablet 11/07/17 Following Prescrptions Were Given to Patient: Diphenoxylate/Atrop [Lomotil] 2 tab PO TID #90 tab Sitagliptin Phos/Metformin HCl [Janumet 50-1,000 MG Tablet] 1 tablet PO BIDCM #1 tablet Primary Care Physician: Micheal Tejeda MD [Primary Care Provider] - Please follow up with your Primary Care Physician in: this week Please Follow Up With: General surgery When: 1 week Disposition: Home Minutes spent on discharge:: 35 Patient Condition:: Stable Medical Necessity - Tobacco Use Smoking Status: Current every day smoker Tobacco Use: Cigarettes Meaningful Use Info Meaningful Use Diagnoses (Choose all that apply): None applicable
--- NOTE | 2017-11-07 14:15 | DS.PCM_ITS ---
Discharge Date and Diagnosis - Problem List Patient Problems: Active and Suspected Problems SIRS (systemic inflammatory response syndrome) (Acute) LUIS ANTONIO (acute kidney injury) (Acute) Date of Admission: 11/04/17 Date of Discharge: 11/07/17 - Primary Discharge Diagnosis Active and Suspected Problems Acute severe sepsis secondary to suspected viral gastroenteritis LUIS ANTONIO (acute kidney injury) (Acute) secondary to increased ileostomy output Chronic constipation status post recent ileostomy Hypertension Type 2 diabetes mellitus Hyperlipidemia Schizoaffective disorder Nicotine abuse - Secondary Discharge Diagnosis Chronic Problems S/P ileostomy (Chronic) HTN (hypertension) (Chronic) Diabetes mellitus (Chronic) HLD (hyperlipidemia) (Chronic) Schizoaffective disorder (Chronic) Nicotine abuse (Chronic) Hospital Course and Treatment Imaging Results: RAD/Chest 1 View (Portable) IMPRESSION: Normal x-ray examination of the chest. Venous doppler: Interpretation Summary No evidence for acute deep venous thrombosis bilateral lower extremities with patent and compressible bilateral great saphenous veins. NM/Lung Scan Vent/Perf IMPRESSION: Normal 99m Tc MAA pulmonary perfusion Tc DTPA aerosol ventilation imaging survey, according to revised PIOPED interpretive criteria. RAD/Abd Inc Decub and/or Erect IMPRESSION: Multiple air-fluid levels are present within small and large bowel which could suggest enteritis. Single dilated small bowel loop is present centrally measuring 4.4 cm. [place] loop cannot be excluded. Consider CT correlation if clinically indicated. Consultations Erna - gen surgery 11/04/17 18:24 Consult: Onc/Wound/wardrobe technician Routine Comment: Reason for Consult:: new colostomy Operations: None Procedures: None Summary of Care Provided: Physical exam on day of discharge: General: Resting comfortably NAD Psych: A/Ox3 normal affect HEENT: PEARRLA AT NC Neck: Supple NT CV: RRR no m/t/r/g/h Resp: CTA Abd: [id number] Soft NT no guarding or rigidity, no irritation around ileostomy. No further distention. Ext: DP2+= no edema Skin: W/D normal turgor Lymph/Heme: No active bleeding or adenopathy Neuro: CN2-12 intact Hospital course: The patient is a 57 year old M with a past medical history of hypertension, hyperlipidemia, nicotine abuse, chronic constipation, patient is status post ileostomy 9 days prior to presentation, who had been home from the hospital for 2 days. He presented to the emergency room with chief complaint of shortness of breath, he was also found to have some abdominal distention, increased output from his ileostomy. He had LUIS ANTONIO. He had not contacted the general surgeon that had performed the ileostomy. He is found to meet sepsis criteria with lactic acidosis, leukocytosis, tachycardia, tachypnea, low temp. He was admitted to the PCU and had a general surgery consultation. CT of the abdomen demonstrated enteritis. He was felt to be viral gastroenteritis contributing to high output from his ileostomy which likely cause significant dehydration is and thus AK I. The patient did have an elevated d-dimer and with that she is complained of shortness of breath and with tachycardia is felt that PE should be ruled out. Due to his kidney function he could not have a CTA and therefore underwent a VQ scan which did not demonstrate PE. Ultrasound of the lower extremities was also negative. Wound care nursing was consulted for ileostomy care. He was treated with aggressive hydration and holding of nephrotoxic agents. The patient improved dramatically however continue to have high output greater than 3 L per day from his ileostomy. He was started on Metamucil, scheduled Imodium, and also received 1 dose of somatostatin while here. C. difficile was negative and enteric panel was negative. He did have positive lactoferrin. By the day of discharge she had significant decrease in his ileostomy output and had no further symptoms. It was felt that he could be discharged home with close follow-up with his PCP and general surgeon. We advised him to continue the Imodium and Metamucil. We also discontinued his metformin at this time decreased his Januvia as these can contribute to GI upset and diarrhea. He is discharged home in stable condition. This patient was seen by Shane Butler PA-C under the supervision of Doctor Robles. [] Discharge Diet: Low fat/ Low Cholesterol, 1800 Calorie Control Diet, 2000 mg Sodium Diet Discharge Activity: Return to Normal Activity Weight Bearing Status: Full weight bearing Home Medications: Medications to take at Discharge Atenolol [Tenormin (beta vineet)] 25 mg PO DAILY 02/15/15 Clozapine [Clozaril] 100 mg PO BID 02/15/15 Lisinopril [Zestril] 2.5 mg PO DAILY 02/15/15 Lorazepam [Ativan] 2 mg PO BID 02/15/15 Lovastatin [Mevacor] 20 mg PO DAILY 02/15/15 [place]-3 Fatty Acids/Fish Oil [[place] 3 Fish Oil Softgel] 1 cap PO .COMPLEX Aspirin [Aspirin EC] 81 mg PO DAILY 11/04/17 Cyanocobalamin (Vitamin B-12) [Vitamin B-12] 1,000 mcg PO DAILY 11/04/17 Linaclotide [Linzess] 290 mg PO DAILY 11/04/17 Niacinamide [Niacin] 500 mg PO DAILY 11/04/17 Perphenazine 8 mg PO 4X/DAY 11/04/17 Benztropine [Cogentin] 1 mg PO BID 11/05/17 Pantoprazole Sodium [Protonix] 40 mg PO DAILY 11/05/17 Diphenoxylate/Atrop [Lomotil] 2 tab PO TID #90 tab 11/07/17 Psyllium [Metamucil] 1 packet PO BID packet 11/07/17 Sitagliptin Phos/Metformin HCl [Janumet 50-1,000 MG Tablet] 1 tablet PO BIDCM # 1 tablet 11/07/17 Following Prescrptions Were Given to Patient: Diphenoxylate/Atrop [Lomotil] 2 tab PO TID #90 tab Sitagliptin Phos/Metformin HCl [Janumet 50-1,000 MG Tablet] 1 tablet PO BIDCM # 1 tablet Primary Care Physician: Micheal Tejeda MD [Primary Care Provider] - Please follow up with your Primary Care Physician in: this week Please Follow Up With: General surgery When: 1 week Disposition: Home Minutes spent on discharge:: 35 Patient Condition:: Stable Medical Necessity - Tobacco Use Smoking Status: Current every day smoker Tobacco Use: Cigarettes Meaningful Use Info Meaningful Use Diagnoses (Choose all that apply): None applicable
--- NOTE | 2017-11-07 15:55 | NURSING ---
Patient states that he does not feel like he needs to urinate. Pt assisted up into the bathroom and he was able to void only 25cc yellow urine with scant amount of tiny red blood clots. bladder scan performed showing 289 ml urine in the bladder. will notify Dr. Robles.
[2017-11-07 17:00] LABS: Bedside Glucose 140 mg/dL (70-110)
--- NOTE | 2017-11-07 17:23 | NURSING ---
Patient was able to void 100cc clear yellow urine. Dr Robles notified. He states that he can be discharged now.
--- NOTE | 2017-11-09 16:34 | CASEMGMT ---
STANLEY SIFUENTES Discharge F/U Phone Call LACE: 9 Strata: 3 Discharge date: 11/07/17 Call date: 11/09/17 Call time: [id number] Duration: 3 minutes Admission dx: LUIS ANTONIO, severe sepsis Pt states has been doing 'ok' since discharge from the hospital. Pt state no questions regarding medications or discharge instructions at this time. Pt states that [facility] has been out to see him already. Pt states no suggestions for [facility] at this time. Pt states that he plans to f/u as directed. Pt states no further questions/concerns/needs at this time. S[place]en STANLEY SIFUENTES
== END 2017-11-07 17:55 | disposition home health service (06) | DRG 872 ==
LOC: ED 14:59 → PCU 17:06
PROVIDERS: Physician Assistant; Admitting Provider Internal Medicine; Emergency Provider Emergency Medicine; Family Provider Family Medicine; PCP Family Medicine; Visit Provider Internal Medicine
DX: A41.89 Other specified sepsis (principal); N17.9 Acute kidney failure, unspecified; R65.20 Severe sepsis without septic shock; E78.5 Hyperlipidemia, unspecified; F25.9 Schizoaffective disorder, unspecified; I10 Essential (primary) hypertension; Z93.2 Ileostomy status; A08.4 Viral intestinal infection, unspecified; E11.9 Type 2 diabetes mellitus without complications; F17.210 Nicotine dependence, cigarettes, uncomplicated; Z79.899 Other long term (current) drug therapy; E86.0 Dehydration
CPT/HCPCS: 36415; 71045; 74019; 78582; 80048; 82962; 83605; 83630; 84484; 85025; 85379; 87040; 87493; 87506; 93005; 93970; 94762; 97110; 97116; 97162; 97166; 97530; 97802; 99283; A9540; A9567; J7030; J7040; A4216; J2354

== ENCOUNTER 2017-11-13 18:05 | Inpatient (IN) | payer MEDICARE, SELFPAY ==
[2017-11-13 18:06] VITALS: BP 85/51; PULSE 81; RESP 18; TEMP 35.8; O2SAT 99; BMI 26.3
--- NOTE | 2017-11-13 18:09 | CT_ITS ---
STUDY: CTA CHEST REASON FOR EXAM: Male, 57 years old. Shortness of breath. RADIATION DOSAGE (If Supplied By Facility): CTDIvol = ( 16.62 ) mGy, DLP = ( 624.99 ) mGycm TECHNIQUE: The examination was performed with the intravenous administration of 100ML ml of Isovue 370 contrast material. Post-processing of the angiographic images was performed, with multiplanar reformation and 3D reconstruction. Individualized dose optimization techniques were used for this CT. COMPARISON: None. FINDINGS: There is no focal consolidation. Within the right lower lobe there is a subpleural 2.7 mm nodule. Normal enhancement of the main pulmonary artery and right and left pulmonary arteries. There is a filling defect within a subsegmental pulmonary artery within the right middle lobe consistent with an underlying pulmonary embolus (image 118 series 2). Normal thoracic aorta and visualized great vessels. There is no demonstrated aortic dissection. There are calcifications of the coronary arteries. Normal mediastinum. Normal hilar regions. Normal visualized trachea and bronchi. Normal chest wall structures. There are degenerative changes of thoracic spine. Limited images of the upper abdomen demonstrate a gallstone within the gallbladder. CT/CTA Chest W/WO Contrast IMPRESSION: Pulmonary embolus within a right middle lobe subsegmental pulmonary artery. Atherosclerosis. Cholelithiasis. N.B. : The above information has been verbally conveyed by Milagros Dasilva MD to Dr lawson , Referring Physician, on 11/13/2017 18:58:56 (ET). Electronically Signed: Milagros Dasilva MD at 18:52 EDT Tel , Service support ,
--- NOTE | 2017-11-13 18:10 | EKG12_ITS ---
Test Reason : SYNCOPE Blood Pressure : / mmHG Vent. Rate : 083 BPM Atrial Rate : 083 BPM P-R Int : 172 ms QRS Dur : 122 ms QT Int : 432 ms P-R-T Axes : 037 -18 030 degrees QTc Int : 507 ms Normal sinus rhythm Leftward axis Confirmed by NELLY CAMACHO, DULCE ([id number]), acquisition editor BERENICE MUNOZ ([id number] on 11/16/2017 1:00:49 PM Referred By: ALEX Confirmed By:DULCE VILLEGAS MD
--- NOTE | 2017-11-13 18:11 | ED.VISSUMM ---
- ER Visit Summary Date of Service: 11/13/17 Chief Complaint: Shortness of breath and syncope History of Present Illness: The patient is a 57 M who is had 2 weeks of shortness of breath. The patient had a ileostomy done 3 weeks ago at [facility]. It was done for chronic constipation. He states for the past 2 weeks he has felt short of breath. It is worse when he exerts himself. He had a syncopal episode today. He denies any chest pain. He has had no bleeding from around or through the ostomy. He denies any fevers. Family states he has been eating and drinking less ever since his surgery. He saw his primary care physician on Wednesday who modified his medications. Looking at the patient records, it appears as if he was admitted on November 04 for similar symptoms. However, at that time he had increased ileostomy output. He was found to have viral gastroenteritis at that time as well as dehydration. He had a VQ scan of the chest due to elevated creatinine. It showed no PE. Duplex ultrasound of his legs were negative. Physical Examination: Vital signs reviewed and are significant for hypotension of 80s over 50s. HEENT exam unremarkable. Heart is regular rate and rhythm without murmurs. Lungs are clear to auscultation. Abdomen is soft and nontender. There is a colostomy in the right lower quadrant. Nontender. No bleeding. Extremities reveal no edema. Skin exam does show a rash around the colostomy site. Neurologic exam normal. Test Results: Laboratory studies show sodium 119, potassium 3.4, creatinine 3.67. Troponin normal. Lactate 4.2. White blood cell count 20.7. CTA of the chest reveals a subsegmental PE. Chest x-ray reveals no acute findings Emergency Department Course and Treatment: The patient does have evidence of dehydration. I will hydrate him with normal saline. He does have a leukocytosis but I am not finding any signs of infection. He was admitted for viral gastroenteritis last week. His lactate is 4.2 but this could be from dehydration as well. CTA as read by the radiologist does reveal a subsegmental PE. Due to his shortness of breath I will anticoagulate him with Elliquis. His blood sodium is also low which will help the IV fluids. The patient will require admission to the hospital Treatment Plan: [] Disposition: Admit Impression: Dehydration, lactic acidosis, hyponatremia, pulmonary embolism This note was generated with [employer] [facility] dictation software. It may contain incorrect words, spelling, and punctuation that were not noted in review of the chart prior to signing ED Disposition - Plan for ED Patient: Chief Complaint: Syncope Referrals: Micheal Tejeda MD [Primary Care Provider] -
[2017-11-13] MEDS: 0.9% Normal Saline 1,000 ML 1000 ML IV (18:14)
[2017-11-13] MEDS: Aspirin 81 MG TAB.CHEW 324 MG PO (18:16)
[2017-11-13 18:43] LABS: Absolute Neutrophil Count 18.7 X10^3/uL (2.0-7.7); Basophil# 0.01 X10^3/uL; Eosinophil# 0.02 X10^3/uL; Eosinophils% 0.1 % (0-5); Hematocrit 44.6 % (40-54); Lymphocyte % 4.8 % (19-41); Mean Corpuscular Volume 80.8 fL (80-94); Mean Platelet Vol. 10.7 fl (6.2-12.0); Monocyte# 0.88 X10^3/uL; Monocyte% 4.3 % (0-10); Neutrophil # 18.69 X10^3/uL (2.7-7.7); Neutrophil % 90.4 % (47-70); Platelet Count 415 K/mm3 (150-450); RBC Distribution Width SD 38.3 fl (35.1-43.9); Red Blood Count 5.52 M/mm3 (4.6-6.2); White Blood Count 20.7 K/mm3 (4.4-11.0)
[2017-11-13 19:19] LABS: Mean Corp Hgb Conc 35.6 g/gl (32-36); Mean Corpuscular Hgb 28.7 pg (27.0-32.0); POSITIVE COUNT NO; POSITIVE DIFFERENTIAL NO; POSITIVE MORPHOLOGY NO
--- NOTE | 2017-11-13 19:22 | RAD_ITS ---
STUDY: X-RAY CHEST REASON FOR EXAM: Male, 57 years old. Short of breath. TECHNIQUE: Portable frontal. COMPARISON: November 04, 2017 FINDINGS: The lungs are clear and expanded. There is no demonstrated pleural abnormality. Normal size heart. Normal mediastinum and memo. Normal visualized pulmonary arteries. Normal visualized aortic arch and descending thoracic aorta. Normal visualized thoracic spine. Normal visualized ribs, clavicles, and shoulders. There is no demonstrated abnormality of the visualized soft tissue structures of the upper abdomen. RAD/Chest 1 View (Portable) IMPRESSION: No acute cardiopulmonary process. Electronically Signed: Milagros Dasilva MD at 20:36 EDT Tel , Service support ,
[2017-11-13 19:43] LABS: Anion Gap 15 (5-15); BUN 78 mg/dL (7-18); BUN/Creat Ratio 21.3 RATIO (10-20); Calcium,Total 9.2 mg/dL (8.5-10.1); Chloride 85 mmol/L (98-107); Creatinine, Serum 3.67 mg/dL (0.70-1.30); EST Glomerular Filtration Rate 18 mL/min (>60); Est Glom Filt Rate - Afr Amer 22 mL/min (>60); Glucose 216 mg/dL (74-106); Potassium 3.4 mmol/L (3.5-5.1); Sodium Level 119 mmol/L (136-145)
[2017-11-13 19:46] LABS: BNP,B-Type NATRIURETIC PEPTIDE 4.6 pg/mL (0-100)
[2017-11-13 19:48] LABS: Lactic Acid 4.2 mmol/L (0.4-2.0)
[2017-11-13 20:05] VITALS: BP 85/62; PULSE 82; RESP 21; O2SAT 96
[2017-11-13 21:03] VITALS: BP 91/60; PULSE 81; RESP 17; TEMP 36.2; O2SAT 96
[2017-11-13] MEDS: APIXABAN 5 MG TABLET 10 MG PO (21:16)
--- NOTE | 2017-11-13 21:36 | PCM.HP.STD ---
Problem List (1) Diabetes mellitus Status: Chronic Qualifiers: Diabetes mellitus type: type 2 (2) HLD (hyperlipidemia) Status: Chronic (3) HTN (hypertension) Status: Chronic (4) Nicotine abuse Status: Chronic (5) S/P ileostomy Status: Chronic (6) Schizoaffective disorder Status: Chronic (7) ARF (acute renal failure) Status: Acute History of Present Illness Date of Admission: 11/13/17 Chief Complaint: ARF and PE The patient is a 57 year old male w/ h/o ileostomy, HTN, DMII, lipidemia, schizoaffective disease and constipation admitted for PE and ARF. He has been SOB and fatigue since ileostomy for obstruction secondary to chronic constipation. Ileostomy was done 3 weeks ago. His SOB has been progressively getting worse. He came into the ED a week ago and was evaluated. Workup was negative with the exception for dehydration secondary to viral enteritis. He has increase outpt in his ostomy bag. He has been unable to keep up with hydration. Past Medical History Past Medical History (Chronic Problems): Chronic Problems S/P ileostomy (Chronic) HTN (hypertension) (Chronic) Diabetes mellitus (Chronic) HLD (hyperlipidemia) (Chronic) Schizoaffective disorder (Chronic) Nicotine abuse (Chronic) Allergies No Known Allergies Allergy (Verified 11/13/17 18:10) Home Medications: Ambulatory Orders Medication Instructions Recorded Atenolol [Tenormin (beta vineet)] 25 mg PO BID 02/15/15 Clozapine [Clozaril] 100 mg PO BID 02/15/15 Lisinopril [Zestril] 2.5 mg PO DAILY 02/15/15 Lorazepam [Ativan] 2 mg PO BID 02/15/15 Lovastatin [Mevacor] 20 mg PO DAILY 02/15/15 Linaclotide [Linzess] 290 mg PO DAILY 11/04/17 Benztropine [Cogentin] 1 mg PO BID 11/05/17 Pantoprazole Sodium [Protonix] 40 mg PO DAILY 11/05/17 Diphenoxylate/Atrop [Lomotil] 2 tab PO TID #90 tab 11/07/17 Montelukast [Singulair] 10 mg PO DAILY tablet 11/07/17 Psyllium [Metamucil] 1 packet PO BID packet 11/07/17 Sitagliptin Phos/Metformin HCl 1 tablet PO DAILY #1 tablet 11/07/17 [Janumet Xr 50-1,000 mg Tablet] Hydrochlorothiazide 50 mg PO DAILY 11/13/17 Magnesium Oxide [Magnesium] 500 mg PO DAILY 11/13/17 Metformin HCl 1,000 mg PO DAILY 11/13/17 Surgical History: - - ileostomy Psychiatric History: - - schizoaffective Smoking Status: Former smoker - *Family History Maternal History Items: High Cholesterol Paternal History Items: Unknown Review of Systems Constitutional: Reports: Malaise, Fatigue. Denies: Chills, Fever, Weight Change HEENT: Denies: Head Aches, Sinus Congestion, Sinus Drainage Cardiovascular: Denies: Chest Pain, Palpitations Respiratory: Reports: Shortness of Breath. Denies: Cough, Shortness of breath at rest, Sputum production Gastrointestinal: Denies: Abdominal Pain, Nausea, Vomiting Genitourinary: Denies: Dysuria Musculoskeletal: Denies: Joint Pain, Joint Tenderness Skin: Denies: Rash, Wounds Neurological: Denies: Numbness, Tingling, Focal weakness Psychiatric: Denies: Anxiety, Depression, Homicidal Ideations, Suicidal Ideations Hematologic/ Lymphatic: Denies: Easy Bruising, Easy Bleeding VTE Information - Inpt Only VTE Present on Admission: No VTE Mechan Device Prophylaxis: SCD's VTE Pharm Prophylaxis ordered?: Yes Patient Problems: Active and Suspected Problems ARF (acute renal failure) (Acute) - Physical Exam General: Alert, Oriented x3, Cooperative HEENT: Atraumatic, PERRLA, EOMI, Normocephalic Neck: Supple, No JVD, Negative Carotid Bruits Lungs: Clear to auscultation, Normal air movement Cardiovascular: Regular rate, No murmurs Abdomen: Bowel Sounds Present, Soft, Non Tender Extremities: No edema, Capillary Refill Less than 3 Seconds Skin: No rashes, No breakdown Musculoskeletal: No Tenderness to Palpation of Joints or Extremities Neurological: Cranial nerves II-XII grossly intact Psych/Mental Status: Normal Affect, Appropriate Vital Signs Temp Pulse Resp BP Pulse Ox 97.1 F L 81 17 91/60 96 11/13/17 21:03 11/13/17 21:03 11/13/17 21:03 11/13/17 21:03 11/13/17 21:03 Oxygen Delivery Method Room Air Weight: 90.6 kg Body Mass Index (BMI) 26.3 Finger Stick Blood Glucose 206 Laboratory Tests Past 24 Hrs 11/13/17 11/13/17 11/13/17 18:15 18:15 18:15 WBC 20.7 H RBC 5.52 Hgb 16.0 Hct 44.6 MCV 80.8 MCH 28.7 MCHC 35.6 RDW 13.0 RDW Differential 38.3 Plt Count 415 MPV 10.7 Immature Gran % (Auto) 0.400 Neut % (Auto) 90.4 H Lymph % (Auto) 4.8 L [place] % (Auto) 4.3 Eos % (Auto) 0.1 Baso % (Auto) 0.0 Absolute Neuts (auto) 18.7 H Absolute Lymphs (auto) 1.00 Total Counted Not Reportable Sodium 119 L* Potassium 3.4 L Chloride 85 L Carbon Dioxide 19.0 L Anion Gap 15 BUN 78 H Creatinine 3.67 H Estim Creat Clear Calc 25.70 Est GFR (MDRD) Af Amer 22 L Est GFR (MDRD) Non-Af 18 L BUN/Creatinine Ratio 21.3 H Glucose 216 H Lactic Acid Calcium 9.2 Troponin I < 0.015 B-Natriuretic Peptide 4.6 11/13/17 18:15 WBC RBC Hgb Hct MCV MCH MCHC RDW RDW Differential Plt Count MPV Immature Gran % (Auto) Neut % (Auto) Lymph % (Auto) [place] % (Auto) Eos % (Auto) Baso % (Auto) Absolute Neuts (auto) Absolute Lymphs (auto) Total Counted Sodium Potassium Chloride Carbon Dioxide Anion Gap BUN Creatinine Estim Creat Clear Calc Est GFR (MDRD) Af Amer Est GFR (MDRD) Non-Af BUN/Creatinine Ratio Glucose Lactic Acid 4.2 H* Calcium Troponin I B-Natriuretic Peptide Assessment/Plan All Active Problems SIRS (systemic inflammatory response syndrome) (Acute) LUIS ANTONIO (acute kidney injury) (Acute) ARF (acute renal failure) (Acute) 57 year old male w/ h/o ileostomy, HTN, DMII, lipidemia, schizoaffective disease and constipation admitted for PE and ARF. 1) ARF: Most likely secondary to azotemia secondary to high outpt ileostomy bag. Pt was given contrast for the CTA on 11/13/17. Will hydrate. Serial labs. Supportive care, ie renal dose meds, avoid nephrotoxic drugs. 2) PE: CTA disclosed Pulmonary embolus within a right middle lobe subsegmental pulmonary artery. Will get eliquis 10mg PO BID x 7 days and then will transition to 5mg PO BID. Will get ECHO. Will also get US of lower extremities. Previous US last week was negative. Hypercoag workup negative. 3) Hypovolemia hyponatremia: Hydration. If no improvement, will consider further workup. Monitor. 4) Lactic acidosis: Most likely secondary to poor perfusion secondary to hypovolemia. Hydration. Repeat level. 5) Prophylaxis: SCD / Eliquis
--- NOTE | 2017-11-13 21:42 | NURSING ---
Called [facility] ED charge nurse, ok for patient to come to floor.
--- NOTE | 2017-11-13 21:58 | NURSING ---
EMPTIED COLOSTOMY BAG 200ML LIQUID BROWN STOOL
[2017-11-13 22:25] VITALS: PULSE 78
[2017-11-13 22:30] LABS: Reflex Lactate? Y
[2017-11-13 22:47] VITALS: BP 105/63; PULSE 80; RESP 16; TEMP 36.4; O2SAT 100
[2017-11-13 22:48] VITALS: BMI 26.4
[2017-11-13 22:53] VITALS: BMI 26.5
[2017-11-13 23:26] VITALS: PULSE 75
[2017-11-13 23:30] LABS: Lactic Acid 2.2 mmol/L (0.4-2.0)
[2017-11-14] VITALS (13 sets, daily range): BP systolic 94–114; BP diastolic 48–70; PULSE 71–118; RESP 12–18; TEMP 36.6–37.2; O2SAT 95–99
[2017-11-14] MEDS: 0.9% NaCl Peripheral Flush Adult/Peds IV (00:20)
[2017-11-14] MEDS: 0.9% Normal Saline 1,000 ML 150 ML IV ×5 (00:20→23:50)
[2017-11-14] MEDS: Psyllium 1 PACKET PO ×2 (00:26→23:24)
--- NOTE | 2017-11-14 05:55 | ECHOCS_ITS ---
Reason For Study: Emboli Procedure This was a 2D Doppler, Color Flow transthoracic echocardiogram. Exam performed portable in patient room. Left Ventricle Normal size and thickness. The estimated ejection fraction is 65 %. Stage 1 diastolic dysfunction. No regional wall motion abnormalities noted. Right Ventricle Normal size and thickness. Normal systolic function. Atria Normal left atrium. Normal right atrium. Normal atrial septum. Mitral Valve The mitral valve is structurally normal. No prolapse or stenosis seen. Tricuspid Valve Normal tricuspid valve. Unable to estimate RV systolic pressure due to inadequate jet, pulmonary artery pressure probably normal. Aortic Valve Trisinus/trileaflet aortic valve. Normal aortic valve. Pulmonic Valve Normal pulmonic valve. Great Vessels Normal aortic root. Normal arch. Normal inferior vena cava. Inferior vena cava collapse with sniff. Pericardium/Pleural No pericardial effusion. Medication Definity0.4ml given slow IV push to enhance endocardial definition. MMode/2D Measurements & Calculations LVIDd: 4.7 cm IVSd: 1.1 cm Ao root diam: 3.2 cm LVIDs: 2.7 cm LVPWd: 0.94 cm RVDd: 3.1 cm FS: 41.7 % LAV(MOD-bp): 27.6 ml LA A4 area: 10.6 cm2 RA A4 area: 9.6 cm2 LAV(MOD-bp) Indexed: 13.3 ml/m2 LAV(MOD-sp2): 35.5 ml LAV(MOD-sp4): 19.3 ml Doppler Measurements & Calculations MV E max prudencio: 71.7 cm/sec Lat Peak E' Prudencio: 10.0 cm/sec Med Peak E' Prudencio: 6.0 cm/sec MV A max prudenico: 86.1 cm/sec E/E' lat: 7.2 E/E' med: 11.9 MV E/A: 0.83 Ao V2 max: 116.5 cm/sec LV V1 max: 102.3 cm/sec PA V2 max: 119.4 cm/sec Ao max P.4 mmHg LV V1 max P.2 mmHg Ao V2 mean: 89.3 cm/sec Ao mean P.4 mmHg Ao V2 VTI: 22.3 cm Interpretation Summary The estimated ejection fraction is 65 %. Stage 1 diastolic dysfunction. Unable to estimate RV systolic pressure due to inadequate jet, pulmonary artery pressure probably normal. There is no comparison study available. The study was technically difficult. Contrast injection was performed. Ordering Physician: Gael Ordonez Referring Physician: Kyree Pena Performed By: Kay Torres RDCS, RVT
[2017-11-14 06:08] LABS: International Normalized Ratio 1.2; Prothrombin Time (Protime)PT. 14.8 SECONDS (11.7-14.9)
[2017-11-14 06:09] LABS: Partial Thromboplast Time 27.3 Seconds (24.1-36.2)
[2017-11-14 06:35] LABS: Anion Gap 16 (5-15); BUN 82 mg/dL (7-18); BUN/Creat Ratio 24.1 RATIO (10-20); Calcium,Total 8.1 mg/dL (8.5-10.1); Chloride 91 mmol/L (98-107); EST Glomerular Filtration Rate 20 mL/min (>60); Est Glom Filt Rate - Afr Amer 24 mL/min (>60); Estimated Creatinine Clearance 27.74 ml/min; Glucose 125 mg/dL (74-106); Potassium 3.1 mmol/L (3.5-5.1); Sodium Level 123 mmol/L (136-145)
[2017-11-14 07:10] LABS: Bedside Glucose 143 mg/dL (70-110)
[2017-11-14] MEDS: APIXABAN 5 MG TABLET 10 MG PO ×2 (08:54→23:25)
[2017-11-14] MEDS: Benztropine 2 MG Tablet 1 MG PO ×2 (08:54→23:27)
[2017-11-14] MEDS: Tamsulosin HCl 0.4 MG Capsule PO (08:54)
[2017-11-14] MEDS: Montelukast 10 MG Tablet PO (08:55)
[2017-11-14] MEDS: Pantoprazole Sodium 40 MG Tablet PO (08:55)
--- NOTE | 2017-11-14 09:08 | VDLE_ITS ---
Reason For Study: swelling RIGHT LEFT GSV is normal. GSV is normal. CFV is compressible, spontaneous, phasic, CFV is compressible, spontaneous, phasic, competent and demonstrates normal competent, and demonstrates normal augmentation. augmentation. FV is compressible, spontaneous, phasic, FV is compressible, spontaneous, phasic, competent and demonstrates normal competent and demonstrates normal augmentation. augmentation. POP V is compressible, spontaneous, phasic, POP V is compressible, spontaneous, phasic, competent and demonstrates normal competent and demonstrates normal augmentation. augmentation. T/P Trunk is compressible. T/P Trunk is compressible. PTV is compressible. PTV is compressible. RT PerV is compressible. LT PerV is compressible. Procedure Exam performed portable in patient room. The exam was diagnostic. A preliminary report was called and/or faxed to Dr. Schuster. Interpretation Summary Deep veins of the lower extremities are bilaterally patent and compressible segmentally. There is no evidence of deep vein thrombosis on either side. Valvular competence appears intact within the proximal deep venous systems bilaterally. The greater saphenous veins appear bilaterally patent and compressible segmentally. Ordering Physician: Deneen Schuster Performed By: Semaj Gonzalez RVT
[2017-11-14 09:20] LABS: Mucous, Urine 0 SEEN /hpf (<or=2+); White Blood Cells 0 SEEN /hpf (0-5)
[2017-11-14 09:32] LABS: Color, Urine Yellow (Yellow); Glucose, Dipstick Normal (Normal); Ketone-Dipstick Negative (Negative); Leukocyte Esterase-Dipstick Negative /ul (Negative); Nitrite-Dipstick Negative (Negative); Occult Blood-Urine 10 /ul (Negative); Protein-Dipstick 30 mg/dl (Negative); Specific Gravity, Urine 1.015 (1.002-1.030); Urine Bilirubin Dipstick Negative (Negative); Urine Clarity Sl. Cloudy (Clear); Urine Urobilinogen Normal (Normal)
[2017-11-14 09:46] LABS: Bacteria 1+ /hpf (None Seen); Red Blood Cells-Urine 0-5 SEEN /hpf (0-5); Squamous Epithelial Cells - UA 0-5 SEEN /hpf (0-5)
[2017-11-14 11:20] LABS: Bedside Glucose 152 mg/dL (70-110)
[2017-11-14] MEDS: Insulin Lispro 100 UNIT/ML INSULN.PEN SC (11:47)
[2017-11-14 12:14] LABS: Absolute Lymphocyte Count 1.53 X10^3/ul (0.83-4.51); Absolute Neutrophil Count 9.3 X10^3/uL (2.0-7.7); Eosinophil# 0.11 X10^3/uL; Eosinophils% 0.9 % (0-5); Hematocrit 38.5 % (40-54); Hemoglobin 13.8 g/dl (13.0-16.5); Lymphocyte # 1.53 X10^3/ul (4.0); Lymphocyte % 12.5 % (19-41); Mean Corp Hgb Conc 35.8 g/gl (32-36); Mean Corpuscular Volume 80.9 fL (80-94); Mean Platelet Vol. 10.5 fl (6.2-12.0); Monocyte# 1.24 X10^3/uL; Monocyte% 10.2 % (0-10); Neutrophil # 9.28 X10^3/uL (2.7-7.7); Platelet Count 334 K/mm3 (150-450); RBC Distribution Width CV 12.9 % (11.6-14.6); RBC Distribution Width SD 37.6 fl (35.1-43.9); Red Blood Count 4.76 M/mm3 (4.6-6.2); White Blood Count 12.2 K/mm3 (4.4-11.0)
[2017-11-14 12:15] LABS: POSITIVE COUNT NO; POSITIVE DIFFERENTIAL NO; POSITIVE MORPHOLOGY NO
--- NOTE | 2017-11-14 12:15 | PCM.PROGNOTE ---
<Katy Ocampo - Last Filed: 11/14/17 12:40> Patient Problems: Active and Suspected Problems ARF (acute renal failure) (Acute) Subjective: Patient seen and examined. Resting comfortably in bed. Denies chest pain, shortness of breath. Denies current complaints. - Physical Exam General: Alert, Oriented x3, Cooperative HEENT: Atraumatic, PERRLA, EOMI, Normocephalic Neck: Supple, No JVD, Negative Carotid Bruits Lungs: Clear to auscultation, Normal air movement Cardiovascular: Regular rate, Regular Rhythm, Normal S1, Normal S2, No murmurs Abdomen: Bowel Sounds Present, Soft, Non Tender, Non-Distended, - - Ileostomy intact Extremities: No edema, Capillary Refill Less than 3 Seconds Skin: No rashes, No breakdown Musculoskeletal: No Tenderness to Palpation of Joints or Extremities Neurological: Cranial nerves II-XII grossly intact, Neuro grossly intact Psych/Mental Status: Normal Affect, Appropriate Vital Signs Temp Pulse Resp BP Pulse Ox 98.7 F 89 16 94/48 L 99 11/14/17 08:51 11/14/17 11:00 11/14/17 08:51 11/14/17 08:51 11/14/17 08:51 Oxygen Delivery Method Room Air Weight: 200 lb 9.93 oz Body Mass Index (BMI) 26.4 Intake and Output for Last 24 Hours 11/12/17 11/13/17 11/14/17 23:59 23:59 23:59 Intake Total 2700 / 2700 Output Total 2425 / 2425 Balance 275 / 275 Laboratory Tests Past 24 Hrs 11/13/17 11/14/17 11/14/17 22:45 05:26 05:26 WBC RBC Hgb Hct MCV MCH MCHC RDW RDW Differential Plt Count MPV Immature Gran % (Auto) Neut % (Auto) Lymph % (Auto) [place] % (Auto) Eos % (Auto) Baso % (Auto) Absolute Neuts (auto) Absolute Lymphs (auto) Total Counted PT 14.8 INR 1.2 APTT 27.3 Sodium 123 L Potassium 3.1 L Chloride 91 L Carbon Dioxide 16.0 L Anion Gap 16 H BUN 82 H Creatinine 3.40 H Estim Creat Clear Calc 27.74 Est GFR (MDRD) Af Amer 24 L Est GFR (MDRD) Non-Af 20 L BUN/Creatinine Ratio 24.1 H Glucose 125 H Lactic Acid 2.2 H Calcium 8.1 L Magnesium Urine Color Urine Clarity Urine pH Ur Specific [place] Urine Protein Urine Glucose (UA) Urine Ketones Urine Occult Blood Urine Nitrite Urine Bilirubin Urine Urobilinogen Ur Leukocyte Esterase Urine RBC Urine WBC Ur Squamous Epith Cells Urine Bacteria Urine Mucus 11/14/17 11/14/17 11/14/17 05:26 05:26 09:13 WBC 12.2 H RBC 4.76 Hgb 13.8 Hct 38.5 L MCV 80.9 MCH 29.0 MCHC 35.8 RDW 12.9 RDW Differential 37.6 Plt Count 334 MPV 10.5 Immature Gran % (Auto) 0.400 Neut % (Auto) 76.0 H Lymph % (Auto) 12.5 L [place] % (Auto) 10.2 H Eos % (Auto) 0.9 Baso % (Auto) 0.0 Absolute Neuts (auto) 9.3 H Absolute Lymphs (auto) 1.53 Total Counted Not Reportable PT INR APTT Sodium Potassium Chloride Carbon Dioxide Anion Gap BUN Creatinine Estim Creat Clear Calc Est GFR (MDRD) Af Amer Est GFR (MDRD) Non-Af BUN/Creatinine Ratio Glucose Lactic Acid Calcium Magnesium Pending Urine Color Yellow Urine Clarity Sl. Cloudy Urine pH 5.0 Ur Specific [place] 1.015 Urine Protein 30 H Urine Glucose (UA) Normal Urine Ketones Negative Urine Occult Blood 10 H Urine Nitrite Negative Urine Bilirubin Negative Urine Urobilinogen Normal Ur Leukocyte Esterase Negative Urine RBC 0-5 SEEN Urine WBC 0 SEEN Ur Squamous Epith Cells 0-5 SEEN Urine Bacteria 1+ Urine Mucus 0 SEEN POC Glucose 11/14/17 11/14/17 11:11 06:49 POC Glucose 152 H 143 H Medical Necessity - Tobacco Use Smoking Status: Former smoker Assessment/Plan All Active Problems SIRS (systemic inflammatory response syndrome) (Acute) LUIS ANTONIO (acute kidney injury) (Acute) ARF (acute renal failure) (Acute) 1. Acute kidney injury-suspect secondary to high output from ileostomy and urinary retention. Continue IV fluids. Moreno catheter placed with immediate return of 1500 cc urine. Patient started on Flomax. Trend BMP. Dr. Umanzor consulted for high output ileostomy. Continue IV fluids. Scheduled Imodium. Recent stool studies 11/04/2017 negative. 2. Acute pulmonary embolism-CTA of chest demonstrated pulmonary embolism within right middle lobe. Continue Eliquis 10 mg twice daily for 7 days. Stop date 11/20/2017. Patient will then transition to Eliquis 5 mg twice daily. Echocardiogram ordered, pending. 3. Hyponatremia-secondary to hypovolemia. Improving with IV fluids. Continue to monitor. 4. Leukocytosis/lactic acidosis-suspect secondary to hypovolemia. Improved with IV fluids. 5. Hypertension-stable, continue to monitor. Hold lisinopril secondary to #1. 6. Hyperlipidemia-continue statin. 7. Chronic constipation status post recent ileostomy placement at [facility] [place]. 8. Schizoaffective disorder-continue home medication regimen. 9. Type 2 diabetes [id number] before meals at bedtime with sliding scale insulin. DVT prophylaxis-Eliquis This patient was seen by FAUSTINO Ocampo under the supervision of Dr. Schuster. <Deneen Schuster - Last Filed: 11/14/17 16:29> - Physical Exam Vital Signs Temp Pulse Resp BP Pulse Ox 98.2 F 92 16 112/66 96 11/14/17 14:37 11/14/17 15:00 11/14/17 14:37 11/14/17 14:37 11/14/17 14:37 Oxygen Delivery Method Room Air Weight: 91 kg Body Mass Index (BMI) 26.4 Orthostatic Vital Signs Start: 11/14/17 12:29 Freq: q24h Status: Active Protocol: Activity Type Activity Date Activity User E-Sign Co-Sign Detail Recorded Client Recorded Date Recorded By Document 11/14/17 12:29 MLB [id number] 11/14/17 12:30 MLB 11/14/17 12:29 Orthostatic Vitals Standing -Blood Pressure (90/60-120/80) 114/70 -Extremity Use Left Arm -Pulse Rate (60-100) 117 H Sitting -Blood Pressure (90/60-120/80) 105/64 -Extremity Use Left Arm -Pulse Rate (60-100) 118 H Lying -Blood Pressure (90/60-120/80) 113/58 L -Extremity Use Left Arm -Pulse Rate (60-100) 71 Intake and Output for Last 24 Hours 11/12/17 11/13/17 11/14/17 23:59 23:59 23:59 Intake Total 2700 / 2700 Output Total 2425 / 2425 Balance 275 / 275 Laboratory Tests Past 24 Hrs 11/13/17 11/14/17 11/14/17 22:45 05:26 05:26 WBC RBC Hgb Hct MCV MCH MCHC RDW RDW Differential Plt Count MPV Immature Gran % (Auto) Neut % (Auto) Lymph % (Auto) [place] % (Auto) Eos % (Auto) Baso % (Auto) Absolute Neuts (auto) Absolute Lymphs (auto) Total Counted PT 14.8 INR 1.2 APTT 27.3 Sodium 123 L Potassium 3.1 L Chloride 91 L Carbon Dioxide 16.0 L Anion Gap 16 H BUN 82 H Creatinine 3.40 H Estim Creat Clear Calc 27.74 Est GFR (MDRD) Af Amer 24 L Est GFR (MDRD) Non-Af 20 L BUN/Creatinine Ratio 24.1 H Glucose 125 H Lactic Acid 2.2 H Calcium 8.1 L Magnesium Urine Color Urine Clarity Urine pH Ur Specific [place] Urine Protein Urine Glucose (UA) Urine Ketones Urine Occult Blood Urine Nitrite Urine Bilirubin Urine Urobilinogen Ur Leukocyte Esterase Urine RBC Urine WBC Ur Squamous Epith Cells Urine Bacteria Urine Mucus 11/14/17 11/14/17 11/14/17 05:26 05:26 09:13 WBC 12.2 H RBC 4.76 Hgb 13.8 Hct 38.5 L MCV 80.9 MCH 29.0 MCHC 35.8 RDW 12.9 RDW Differential 37.6 Plt Count 334 MPV 10.5 Immature Gran % (Auto) 0.400 Neut % (Auto) 76.0 H Lymph % (Auto) 12.5 L [place] % (Auto) 10.2 H Eos % (Auto) 0.9 Baso % (Auto) 0.0 Absolute Neuts (auto) 9.3 H Absolute Lymphs (auto) 1.53 Total Counted Not Reportable PT INR APTT Sodium Potassium Chloride Carbon Dioxide Anion Gap BUN Creatinine Estim Creat Clear Calc Est GFR (MDRD) Af Amer Est GFR (MDRD) Non-Af BUN/Creatinine Ratio Glucose Lactic Acid Calcium Magnesium 2.3 Urine Color Yellow Urine Clarity Sl. Cloudy Urine pH 5.0 Ur Specific [place] 1.015 Urine Protein 30 H Urine Glucose (UA) Normal Urine Ketones Negative Urine Occult Blood 10 H Urine Nitrite Negative Urine Bilirubin Negative Urine Urobilinogen Normal Ur Leukocyte Esterase Negative Urine RBC 0-5 SEEN Urine WBC 0 SEEN Ur Squamous Epith Cells 0-5 SEEN Urine Bacteria 1+ Urine Mucus 0 SEEN POC Glucose 11/14/17 11/14/17 11:11 06:49 POC Glucose 152 H 143 H Assessment/Plan Patient seen and examined. Agree with interval history and physical exam as documented by nurse practitioner Katy Ocampo. Vitals stable. Remains orthostatic, on IV fluids going at 150cc/hour. Labs reviewed, WBC improved to 12.2. Sodium is 123 from 119, remains hypokalemic, K 3.1, He was discharged with normal creatinine the last time, here with creatinine more than 3.5 Will get ultrasound of the kidneys, urine electrolytes, continue with IVF Will continue with Imodium, DR. Umanzor consult for ileostomy options Code Visit Inpatient E&M: [id number] Subs Hosp L2
[2017-11-14 12:28] LABS: Magnesium 2.3 mg/dL (1.6-2.6)
--- NOTE | 2017-11-14 12:40 | PN_ITS ---
<Katy Ocampo - Last Filed: 11/14/17 12:40> Patient Problems: Active and Suspected Problems ARF (acute renal failure) (Acute) Subjective: Patient seen and examined. Resting comfortably in bed. Denies chest pain, shortness of breath. Denies current complaints. - Physical Exam General: Alert, Oriented x3, Cooperative HEENT: Atraumatic, PERRLA, EOMI, Normocephalic Neck: Supple, No JVD, Negative Carotid Bruits Lungs: Clear to auscultation, Normal air movement Cardiovascular: Regular rate, Regular Rhythm, Normal S1, Normal S2, No murmurs Abdomen: Bowel Sounds Present, Soft, Non Tender, Non-Distended, - - Ileostomy intact Extremities: No edema, Capillary Refill Less than 3 Seconds Skin: No rashes, No breakdown Musculoskeletal: No Tenderness to Palpation of Joints or Extremities Neurological: Cranial nerves II-XII grossly intact, Neuro grossly intact Psych/Mental Status: Normal Affect, Appropriate Vital Signs Temp Pulse Resp BP Pulse Ox 98.7 F 89 16 94/48 L 99 11/14/17 08:51 11/14/17 11:00 11/14/17 08:51 11/14/17 08:51 11/14/17 08:51 Oxygen Delivery Method Room Air Weight: 200 lb 9.93 oz Body Mass Index (BMI) 26.4 Intake and Output for Last 24 Hours 11/12/17 11/13/17 11/14/17 23:59 23:59 23:59 Intake Total 2700 / 2700 Output Total 2425 / 2425 Balance 275 / 275 Laboratory Tests Past 24 Hrs 11/13/17 11/14/17 11/14/17 22:45 05:26 05:26 WBC RBC Hgb Hct MCV MCH MCHC RDW RDW Differential Plt Count MPV Immature Gran % (Auto) Neut % (Auto) Lymph % (Auto) [place] % (Auto) Eos % (Auto) Baso % (Auto) Absolute Neuts (auto) Absolute Lymphs (auto) Total Counted PT 14.8 INR 1.2 APTT 27.3 Sodium 123 L Potassium 3.1 L Chloride 91 L Carbon Dioxide 16.0 L Anion Gap 16 H BUN 82 H Creatinine 3.40 H Estim Creat Clear Calc 27.74 Est GFR (MDRD) Af Amer 24 L Est GFR (MDRD) Non-Af 20 L BUN/Creatinine Ratio 24.1 H Glucose 125 H Lactic Acid 2.2 H Calcium 8.1 L Magnesium Urine Color Urine Clarity Urine pH Ur Specific [place] Urine Protein Urine Glucose (UA) Urine Ketones Urine Occult Blood Urine Nitrite Urine Bilirubin Urine Urobilinogen Ur Leukocyte Esterase Urine RBC Urine WBC Ur Squamous Epith Cells Urine Bacteria Urine Mucus 11/14/17 11/14/17 11/14/17 05:26 05:26 09:13 WBC 12.2 H RBC 4.76 Hgb 13.8 Hct 38.5 L MCV 80.9 MCH 29.0 MCHC 35.8 RDW 12.9 RDW Differential 37.6 Plt Count 334 MPV 10.5 Immature Gran % (Auto) 0.400 Neut % (Auto) 76.0 H Lymph % (Auto) 12.5 L [place] % (Auto) 10.2 H Eos % (Auto) 0.9 Baso % (Auto) 0.0 Absolute Neuts (auto) 9.3 H Absolute Lymphs (auto) 1.53 Total Counted Not Reportable PT INR APTT Sodium Potassium Chloride Carbon Dioxide Anion Gap BUN Creatinine Estim Creat Clear Calc Est GFR (MDRD) Af Amer Est GFR (MDRD) Non-Af BUN/Creatinine Ratio Glucose Lactic Acid Calcium Magnesium Pending Urine Color Yellow Urine Clarity Sl. Cloudy Urine pH 5.0 Ur Specific [place] 1.015 Urine Protein 30 H Urine Glucose (UA) Normal Urine Ketones Negative Urine Occult Blood 10 H Urine Nitrite Negative Urine Bilirubin Negative Urine Urobilinogen Normal Ur Leukocyte Esterase Negative Urine RBC 0-5 SEEN Urine WBC 0 SEEN Ur Squamous Epith Cells 0-5 SEEN Urine Bacteria 1+ Urine Mucus 0 SEEN POC Glucose 11/14/17 11/14/17 11:11 06:49 POC Glucose 152 H 143 H Medical Necessity - Tobacco Use Smoking Status: Former smoker Assessment/Plan All Active Problems SIRS (systemic inflammatory response syndrome) (Acute) LUIS ANTONIO (acute kidney injury) (Acute) ARF (acute renal failure) (Acute) 1. Acute kidney injury-suspect secondary to high output from ileostomy and urinary retention. Continue IV fluids. Moreno catheter placed with immediate return of 1500 cc urine. Patient started on Flomax. Trend BMP. Dr. Umanzor consulted for high output ileostomy. Continue IV fluids. Scheduled Imodium. Recent stool studies 11/04/2017 negative. 2. Acute pulmonary embolism-CTA of chest demonstrated pulmonary embolism within right middle lobe. Continue Eliquis 10 mg twice daily for 7 days. Stop date 11/20/2017. Patient will then transition to Eliquis 5 mg twice daily. Echocardiogram ordered, pending. 3. Hyponatremia-secondary to hypovolemia. Improving with IV fluids. Continue to monitor. 4. Leukocytosis/lactic acidosis-suspect secondary to hypovolemia. Improved with IV fluids. 5. Hypertension-stable, continue to monitor. Hold lisinopril secondary to #1. 6. Hyperlipidemia-continue statin. 7. Chronic constipation status post recent ileostomy placement at [facility] [place]. 8. Schizoaffective disorder-continue home medication regimen. 9. Type 2 diabetes [id number] before meals at bedtime with sliding scale insulin. DVT prophylaxis-Eliquis This patient was seen by FAUSTINO Ocampo under the supervision of Dr. Schuster. <Deneen Schuster - Last Filed: 11/14/17 16:29> - Physical Exam Vital Signs Temp Pulse Resp BP Pulse Ox 98.2 F 92 16 112/66 96 11/14/17 14:37 11/14/17 15:00 11/14/17 14:37 11/14/17 14:37 11/14/17 14:37 Oxygen Delivery Method Room Air Weight: 91 kg Body Mass Index (BMI) 26.4 Orthostatic Vital Signs Start: 11/14/17 12:29 Freq: q24h Status: Active Protocol: Activity Type Activity Date Activity User E-Sign Co-Sign Detail Recorded Client Recorded Date Recorded By Document 11/14/17 12:29 MLB [id number] 11/14/17 12:30 MLB 11/14/17 12:29 Orthostatic Vitals Standing -Blood Pressure (90/60-120/80) 114/70 -Extremity Use Left Arm -Pulse Rate (60-100) 117 H Sitting -Blood Pressure (90/60-120/80) 105/64 -Extremity Use Left Arm -Pulse Rate (60-100) 118 H Lying -Blood Pressure (90/60-120/80) 113/58 L -Extremity Use Left Arm -Pulse Rate (60-100) 71 Intake and Output for Last 24 Hours 11/12/17 11/13/17 11/14/17 23:59 23:59 23:59 Intake Total 2700 / 2700 Output Total 2425 / 2425 Balance 275 / 275 Laboratory Tests Past 24 Hrs 11/13/17 11/14/17 11/14/17 22:45 05:26 05:26 WBC RBC Hgb Hct MCV MCH MCHC RDW RDW Differential Plt Count MPV Immature Gran % (Auto) Neut % (Auto) Lymph % (Auto) [place] % (Auto) Eos % (Auto) Baso % (Auto) Absolute Neuts (auto) Absolute Lymphs (auto) Total Counted PT 14.8 INR 1.2 APTT 27.3 Sodium 123 L Potassium 3.1 L Chloride 91 L Carbon Dioxide 16.0 L Anion Gap 16 H BUN 82 H Creatinine 3.40 H Estim Creat Clear Calc 27.74 Est GFR (MDRD) Af Amer 24 L Est GFR (MDRD) Non-Af 20 L BUN/Creatinine Ratio 24.1 H Glucose 125 H Lactic Acid 2.2 H Calcium 8.1 L Magnesium Urine Color Urine Clarity Urine pH Ur Specific [place] Urine Protein Urine Glucose (UA) Urine Ketones Urine Occult Blood Urine Nitrite Urine Bilirubin Urine Urobilinogen Ur Leukocyte Esterase Urine RBC Urine WBC Ur Squamous Epith Cells Urine Bacteria Urine Mucus 11/14/17 11/14/17 11/14/17 05:26 05:26 09:13 WBC 12.2 H RBC 4.76 Hgb 13.8 Hct 38.5 L MCV 80.9 MCH 29.0 MCHC 35.8 RDW 12.9 RDW Differential 37.6 Plt Count 334 MPV 10.5 Immature Gran % (Auto) 0.400 Neut % (Auto) 76.0 H Lymph % (Auto) 12.5 L [place] % (Auto) 10.2 H Eos % (Auto) 0.9 Baso % (Auto) 0.0 Absolute Neuts (auto) 9.3 H Absolute Lymphs (auto) 1.53 Total Counted Not Reportable PT INR APTT Sodium Potassium Chloride Carbon Dioxide Anion Gap BUN Creatinine Estim Creat Clear Calc Est GFR (MDRD) Af Amer Est GFR (MDRD) Non-Af BUN/Creatinine Ratio Glucose Lactic Acid Calcium Magnesium 2.3 Urine Color Yellow Urine Clarity Sl. Cloudy Urine pH 5.0 Ur Specific [place] 1.015 Urine Protein 30 H Urine Glucose (UA) Normal Urine Ketones Negative Urine Occult Blood 10 H Urine Nitrite Negative Urine Bilirubin Negative Urine Urobilinogen Normal Ur Leukocyte Esterase Negative Urine RBC 0-5 SEEN Urine WBC 0 SEEN Ur Squamous Epith Cells 0-5 SEEN Urine Bacteria 1+ Urine Mucus 0 SEEN POC Glucose 11/14/17 11/14/17 11:11 06:49 POC Glucose 152 H 143 H Assessment/Plan Patient seen and examined. Agree with interval history and physical exam as documented by nurse practitioner Katy Ocampo. Vitals stable. Remains orthostatic, on IV fluids going at 150cc/hour. Labs reviewed, WBC improved to 12.2. Sodium is 123 from 119, remains hypokalemic, K 3.1, He was discharged with normal creatinine the last time, here with creatinine more than 3.5 Will get ultrasound of the kidneys, urine electrolytes, continue with IVF Will continue with Imodium, DR. Umanzor consult for ileostomy options Code Visit Inpatient E&M: [id number] Subs Hosp L2
[2017-11-14] MEDS: Loperamide 2 MG Capsule PO ×3 (14:37→23:25)
--- NOTE | 2017-11-14 16:26 | US_ITS ---
STUDY: RENAL ULTRASOUND - COMPLETE REASON FOR EXAM: Male, 57 years old. Acute renal failure TECHNIQUE: Ultrasound evaluation of the kidneys was performed with real-time and static grace-scale imaging. COMPARISON: None. FINDINGS: RIGHT KIDNEY: Normal location of the right kidney, which is normal in size. The right kidney measures 11.4 x 4.8 x 6 cm. There is a normal cortex of the right kidney. The renal cortex measures 2 cm. There is no right renal mass or cyst. There are no right renal calculi. There is mild hydronephrosis of the right kidney. DISTAL RIGHT URETER: There is non-visualization of the distal right ureter. There is no demonstrated right ureterovesical junction calculus. There is a visualized right ureteral jet. LEFT KIDNEY: Normal location of the left kidney, which is normal in size. The left kidney measures 11.8 x 5.8 x 5.6 cm. There is a normal cortex of the left kidney. The renal cortex measures 1.9 cm. There is no left renal mass or cyst. There are no left renal calculi. There is no left hydronephrosis. DISTAL LEFT URETER: There is non-visualization of the distal left ureter. There is no demonstrated left ureterovesical junction calculus. There is a visualized left ureteral jet. AORTA: There is no demonstrated aneurysm.. I.V.C.: The IVC is patent. BLADDER: The patient has a Moreno catheter in place. US/Kidney and Bladder IMPRESSION: Mild left hydronephrosis Electronically Signed: Israel Wilson MD at 12:47 EDT Tel , Service support ,
[2017-11-14 16:40] LABS: Bedside Glucose 140 mg/dL (70-110)
[2017-11-14] MEDS: Glucerna Shake 120 ML LIQUID PO (17:08)
[2017-11-14 17:47] LABS: Urine Sodium 47 mmol/L (Not Establ.)
--- NOTE | 2017-11-14 17:53 | PCM.CONS.GEN ---
Reason for Consult Date of Consultation: 11/14/17 History of Present Illness: The patient is a 57 year old M with a history of chronic severe constipation, hypertension, hyperlipidemia, diabetes, COPD, anxiety and hallucinations/schizoaffective disorder. I attempted to perform colonoscopy on the patient in 2006. He stated he completed his complete bowel prep at that time. his colonoscopy had a poor prep and he was unable to be completely evaluated. He has since been evaluated clinically and clinic main campus. His workup concluded that he had an overall chronic constipation with decreased colonic transit and outlet-type obstruction. Decision was made to perform a loop ileostomy. The patient underwent attempted colonoscopy which again demonstrated incomplete preparation and laparoscopic loop ileostomy on October 25. Diagnostic laparoscopy demonstrated no obvious abnormalities. A loop ileostomy was created over a stoma bar. Postoperatively, the patient agree of an ileus requiring an nasogastric tube. He had return of bowel function, the nasogastric tube was removed and the patient was tolerating a diet at discharge on November 02, 2017. notably, the patient had relatively balanced input and output during the last 2 days of hospitalization. On November 02, the day of discharge, the patient's hemoglobin was 13.4, BUN was 9 and creatinine was 0.75 the patient present to [facility] emergency department on November 04 with a complaint of shortness of breath. He had a blood pressure of 83/60, when he presented. Chest x-ray no acute abnormality. Ultrasound lower extremities shows no DVT. EKG sinus tachycardia 123. No acute signs of ischemia. CBC shows a white count of 14 H&H 18 and 15. No bands. Electrolytes sodium 135. CO2 18. BUN 27 creatinine 3.49. Anion gap 16. Upon normal. D-dimer slightly elevated 1.45 lactic acid 2.8. After fluid rehydration, the patient is noted resolution of his shortness of breath. He is currently on the floor in the PCU comfortable watching television. He has noted higher stoma output for the past 2 days. He had a negative V/Q scan and negative lower extremity duplex. He was started on octreotide and immodium while in the hospital. He had started to have more solid and a decrease in his ileostomy output. He was discharged on lomotil and fiber on November 07. He returns today again dehydrated. Past Medical History Past Medical History (Chronic Problems): Chronic Problems S/P ileostomy (Chronic) HTN (hypertension) (Chronic) Diabetes mellitus (Chronic) HLD (hyperlipidemia) (Chronic) Schizoaffective disorder (Chronic) Nicotine abuse (Chronic) Allergies No Known Allergies Allergy (Verified 11/13/17 18:10) Home Medications: Ambulatory Orders Medication Instructions Recorded Atenolol [Tenormin (beta vineet)] 25 mg PO DAILY 02/15/15 Clozapine [Clozaril] 100 mg PO BID 02/15/15 Lisinopril [Zestril] 2.5 mg PO DAILY 02/15/15 Lorazepam [Ativan] 2 mg PO BID 02/15/15 Lovastatin [Mevacor] 20 mg PO QHS 02/15/15 Linaclotide [Linzess] 290 mcg PO DAILY 11/04/17 Benztropine [Cogentin] 1 mg PO BID 11/05/17 Sitagliptin Phos/Metformin HCl 1 tablet PO DAILY #1 tablet 11/07/17 [Janumet Xr 50-1,000 mg Tablet] Hydrochlorothiazide 50 mg PO DAILY 11/13/17 Magnesium Oxide [Magnesium] 500 mg PO DAILY 11/13/17 Metformin HCl 1,000 mg PO DAILY 11/13/17 Montelukast [Singulair] 10 mg PO QHS 11/14/17 Perphenazine 8 mg PO 4X/DAY 11/14/17 Surgical History: - - ileostomy Psychiatric History: - - schizoaffective Smoking Status: Former smoker - *Family History Maternal History Items: High Cholesterol Paternal History Items: Unknown Patient Problems: Active and Suspected Problems ARF (acute renal failure) (Acute) - Physical Exam Vital Signs Temp Pulse Resp BP Pulse Ox 98 F 76 12 112/62 98 11/14/17 17:17 11/14/17 17:17 11/14/17 17:17 11/14/17 17:17 11/14/17 17:17 Oxygen Delivery Method Room Air Weight: 91 kg Body Mass Index (BMI) 26.4 Orthostatic Vital Signs Start: 11/14/17 12:29 Freq: q24h Status: Active Protocol: Activity Type Activity Date Activity User E-Sign Co-Sign Detail Recorded Client Recorded Date Recorded By Document 11/14/17 12:29 MLB [id number] 11/14/17 12:30 MLB 11/14/17 12:29 Orthostatic Vitals Standing -Blood Pressure (90/60-120/80) 114/70 -Extremity Use Left Arm -Pulse Rate (60-100) 117 H Sitting -Blood Pressure (90/60-120/80) 105/64 -Extremity Use Left Arm -Pulse Rate (60-100) 118 H Lying -Blood Pressure (90/60-120/80) 113/58 L -Extremity Use Left Arm -Pulse Rate (60-100) 71 Intake and Output for Last 24 Hours 11/12/17 11/13/17 11/14/17 23:59 23:59 23:59 Intake Total 4329 / 4329 Output Total 3950 / 3950 Balance 379 / 379 Laboratory Tests Past 24 Hrs 11/13/17 11/14/17 11/14/17 22:45 05:26 05:26 WBC RBC Hgb Hct MCV MCH MCHC RDW RDW Differential Plt Count MPV Immature Gran % (Auto) Neut % (Auto) Lymph % (Auto) [place] % (Auto) Eos % (Auto) Baso % (Auto) Absolute Neuts (auto) Absolute Lymphs (auto) Total Counted PT 14.8 INR 1.2 APTT 27.3 Sodium 123 L Potassium 3.1 L Chloride 91 L Carbon Dioxide 16.0 L Anion Gap 16 H BUN 82 H Creatinine 3.40 H Estim Creat Clear Calc 27.74 Est GFR (MDRD) Af Amer 24 L Est GFR (MDRD) Non-Af 20 L BUN/Creatinine Ratio 24.1 H Glucose 125 H Lactic Acid 2.2 H Calcium 8.1 L Magnesium Urine Color Urine Clarity Urine pH Ur Specific [place] Urine Protein Urine Glucose (UA) Urine Ketones Urine Occult Blood Urine Nitrite Urine Bilirubin Urine Urobilinogen Ur Leukocyte Esterase Urine RBC Urine WBC Ur Squamous Epith Cells Urine Bacteria Urine Mucus Ur Random Sodium Urine Creatinine 11/14/17 11/14/17 11/14/17 05:26 05:26 09:13 WBC 12.2 H RBC 4.76 Hgb 13.8 Hct 38.5 L MCV 80.9 MCH 29.0 MCHC 35.8 RDW 12.9 RDW Differential 37.6 Plt Count 334 MPV 10.5 Immature Gran % (Auto) 0.400 Neut % (Auto) 76.0 H Lymph % (Auto) 12.5 L [place] % (Auto) 10.2 H Eos % (Auto) 0.9 Baso % (Auto) 0.0 Absolute Neuts (auto) 9.3 H Absolute Lymphs (auto) 1.53 Total Counted Not Reportable PT INR APTT Sodium Potassium Chloride Carbon Dioxide Anion Gap BUN Creatinine Estim Creat Clear Calc Est GFR (MDRD) Af Amer Est GFR (MDRD) Non-Af BUN/Creatinine Ratio Glucose Lactic Acid Calcium Magnesium 2.3 Urine Color Yellow Urine Clarity Sl. Cloudy Urine pH 5.0 Ur Specific [place] 1.015 Urine Protein 30 H Urine Glucose (UA) Normal Urine Ketones Negative Urine Occult Blood 10 H Urine Nitrite Negative Urine Bilirubin Negative Urine Urobilinogen Normal Ur Leukocyte Esterase Negative Urine RBC 0-5 SEEN Urine WBC 0 SEEN Ur Squamous Epith Cells 0-5 SEEN Urine Bacteria 1+ Urine Mucus 0 SEEN Ur Random Sodium Urine Creatinine 11/14/17 11/14/17 17:30 17:30 WBC RBC Hgb Hct MCV MCH MCHC RDW RDW Differential Plt Count MPV Immature Gran % (Auto) Neut % (Auto) Lymph % (Auto) [place] % (Auto) Eos % (Auto) Baso % (Auto) Absolute Neuts (auto) Absolute Lymphs (auto) Total Counted PT INR APTT Sodium Potassium Chloride Carbon Dioxide Anion Gap BUN Creatinine Estim Creat Clear Calc Est GFR (MDRD) Af Amer Est GFR (MDRD) Non-Af BUN/Creatinine Ratio Glucose Lactic Acid Calcium Magnesium Urine Color Urine Clarity Urine pH Ur Specific [place] Urine Protein Urine Glucose (UA) Urine Ketones Urine Occult Blood Urine Nitrite Urine Bilirubin Urine Urobilinogen Ur Leukocyte Esterase Urine RBC Urine WBC Ur Squamous Epith Cells Urine Bacteria Urine Mucus Ur Random Sodium 47 Urine Creatinine Pending POC Glucose 11/14/17 11/14/17 11/14/17 16:36 11:11 06:49 POC Glucose 140 H 152 H 143 H Assessment/Plan All Active Problems SIRS (systemic inflammatory response syndrome) (Acute) LUIS ANTONIO (acute kidney injury) (Acute) ARF (acute renal failure) (Acute) High stoma output, dehydration, PE on CT scan, likely dehydration from high stoma output, history of chronic constipation, shortness of breath, PE, history of schizoaffective disorder I would monitor strict ins and outs to assess the total ileostomy output. IV hydration to prevent extending acute renal injury secondatotal ry to dehydration and IV contrast load. Orally - would try to limit total oral liquid intake and try to minimize osmotically active liquids - would try to hold glucerna/ensure for now. Try smaller solid meals, fiber supplements. will add somatostatin and lomotil or immodium.
[2017-11-14] MEDS: Atorvastatin Calcium 10 MG Tablet 5 MG PO (23:29)
[2017-11-14] MEDS: Octreotide 0.1 MG/ML ML SC (23:31)
[2017-11-14 23:55] LABS: Bedside Glucose 145 mg/dL (70-110)
[2017-11-15] VITALS (11 sets, daily range): BP systolic 110–137; BP diastolic 72–86; PULSE 66–90; RESP 14–18; TEMP 36.4–37; O2SAT 96–99
[2017-11-15] MEDS: Octreotide 0.1 MG/ML ML SC ×3 (05:40→21:08)
[2017-11-15] MEDS: 0.9% Normal Saline 1,000 ML 150 ML IV ×3 (05:41→20:59)
[2017-11-15 07:01] LABS: Absolute Lymphocyte Count 1.48 X10^3/ul (0.83-4.51); Basophil# 0.02 X10^3/uL; Basophil% 0.3 % (0-1); Eosinophils% 1.3 % (0-5); Hematocrit 37.9 % (40-54); Hemoglobin 13.8 g/dl (13.0-16.5); Lymphocyte # 1.48 X10^3/ul (4.0); Lymphocyte % 19.3 % (19-41); Mean Corp Hgb Conc 36.4 g/gl (32-36); Mean Corpuscular Hgb 29.3 pg (27.0-32.0); Mean Corpuscular Volume 80.5 fL (80-94); Mean Platelet Vol. 10.8 fl (6.2-12.0); Monocyte# 1.01 X10^3/uL; Monocyte% 13.2 % (0-10); Neutrophil # 5.03 X10^3/uL (2.7-7.7); Neutrophil % 65.4 % (47-70); Platelet Count 291 K/mm3 (150-450); RBC Distribution Width SD 37.4 fl (35.1-43.9); Red Blood Count 4.71 M/mm3 (4.6-6.2); White Blood Count 7.7 K/mm3 (4.4-11.0)
[2017-11-15 07:10] LABS: POSITIVE COUNT NO; POSITIVE DIFFERENTIAL NO; POSITIVE MORPHOLOGY NO
[2017-11-15 07:11] LABS: Bedside Glucose 163 mg/dL (70-110)
[2017-11-15 07:15] LABS: ALB/GLOB Ratio 1.1 RATIO (0.9-2.4); AST(SGOT) 33 U/L (15-37); Alanine Aminotransfer ALT/SGPT 103 U/L (16-61); Albumin, Serum 3.3 g/dL (3.2-5.0); Alkaline Phosphatase 75 U/L (45-117); Anion Gap 12 (5-15); BUN 49 mg/dL (7-18); BUN/Creat Ratio 33.6 RATIO (10-20); Chloride 107 mmol/L (98-107); Creatinine, Serum 1.46 mg/dL (0.70-1.30); EST Glomerular Filtration Rate 53 mL/min (>60); Est Glom Filt Rate - Afr Amer 64 mL/min (>60); Estimated Creatinine Clearance 64.61 ml/min; Globulin 3.1 g/dL (2.2-4.2); Glucose 175 mg/dL (74-106); Potassium 3.9 mmol/L (3.5-5.1); Protein, Total 6.4 g/dL (6.4-8.2); Sodium Level 137 mmol/L (136-145)
[2017-11-15] MEDS: Tamsulosin HCl 0.4 MG Capsule PO (08:31)
[2017-11-15] MEDS: APIXABAN 5 MG TABLET 10 MG PO ×2 (08:32→21:01)
[2017-11-15] MEDS: Psyllium 1 PACKET PO ×2 (08:32→20:59)
[2017-11-15] MEDS: Loperamide 2 MG Capsule PO ×4 (08:32→21:00)
[2017-11-15] MEDS: Benztropine 2 MG Tablet 1 MG PO ×2 (08:32→21:00)
[2017-11-15] MEDS: Pantoprazole Sodium 40 MG Tablet PO (08:33)
[2017-11-15] MEDS: Montelukast 10 MG Tablet PO (08:33)
[2017-11-15] MEDS: Insulin Lispro 100 UNIT/ML INSULN.PEN SC ×3 (08:34→17:16)
--- NOTE | 2017-11-15 08:57 | NURSING ---
Was asked to see patient for leaking ileostomy appliance. patient states he has been having very frequent leaks at home. peristomal skin is very red and irritated d/t the leaks. patient states he has still been having very watery stools at home. during last admission, had recommended immodium. had also talked with patient and gave patient information on foods that can help thicken his stool. patient still has many questions and concerns. Pt states someone is going to have to learn how to change this at home. asked who was helping him at home now, and patient states home health has been assisting. Reminded patient that he needs to empty the appliance when it gets approx 1/3-1/2 full to reduce leaks. patient states this appliance that you put on last time was the only one that stayed. asked that his mother bring in an appliance that he has been using at home to see if we need to switch him to another kind. stoma is well budded and measures approx 1 3/8. stoma is beefy red and slightly oval in shape. cleansed peristomal skin with soap and water. pat dry. dusted small amount of stoma powder to the red irritated skin making sure to remove any excess powder. applied a 2 piece convex Honey appliance with a small amount of stoma paste. patient tolerated well. will continue with ostomy education and talk with mother to see if appliances need to be switched to another type. had discusses the patient with Dr mUanzor earlier this am. will continue to follow.
[2017-11-15 12:00] LABS: Bedside Glucose 231 mg/dL (70-110)
--- NOTE | 2017-11-15 13:32 | PN_ITS ---
<Katy Ocampo - Last Filed: 11/15/17 13:53> Patient Problems: Active and Suspected Problems ARF (acute renal failure) (Acute) Subjective: Patient seen and examined. States he feels tired. Reports less output from his ostomy. Denies other current complaints. - Physical Exam General: Alert, Oriented x3, Cooperative, No apparent distress HEENT: Atraumatic, PERRLA, EOMI, Normocephalic Neck: Supple, No JVD, Negative Carotid Bruits Lungs: Clear to auscultation, Normal air movement Cardiovascular: Regular rate, Regular Rhythm, Normal S1, Normal S2, No murmurs Abdomen: Bowel Sounds Present, Soft, Non Tender, Non-Distended, - - Ileostomy intact Extremities: No clubbing, No cyanosis, No edema, Capillary Refill Less than 3 Seconds Skin: No rashes, No breakdown Musculoskeletal: No Tenderness to Palpation of Joints or Extremities Neurological: Cranial nerves II-XII grossly intact, Neuro grossly intact Psych/Mental Status: Normal Affect, Appropriate Vital Signs Temp Pulse Resp BP Pulse Ox 98.3 F 85 14 110/73 98 11/15/17 08:37 11/15/17 08:37 11/15/17 08:37 11/15/17 08:37 11/15/17 08:37 Oxygen Delivery Method Room Air Weight: 200 lb 9.93 oz Body Mass Index (BMI) 26.4 Orthostatic Vital Signs Start: 11/14/17 12:29 Freq: q24h Status: Active Protocol: Activity Type Activity Date Activity User E-Sign Co-Sign Detail Recorded Client Recorded Date Recorded By Document 11/14/17 12:29 MLB [id number] 11/14/17 12:30 MLB 11/14/17 12:29 Orthostatic Vitals Standing -Blood Pressure (90/60-120/80) 114/70 -Extremity Use Left Arm -Pulse Rate (60-100) 117 H Sitting -Blood Pressure (90/60-120/80) 105/64 -Extremity Use Left Arm -Pulse Rate (60-100) 118 H Lying -Blood Pressure (90/60-120/80) 113/58 L -Extremity Use Left Arm -Pulse Rate (60-100) 71 Intake and Output for Last 24 Hours 11/13/17 11/14/17 11/15/17 23:59 23:59 23:59 Intake Total 4329 / 4329 2066 / 2066 Output Total 3950 / 3950 4650 / 4650 Balance 379 / 379 -2584 / -2584 Laboratory Tests Past 24 Hrs 11/14/17 11/14/17 11/15/17 17:30 17:30 06:00 WBC 7.7 RBC 4.71 Hgb 13.8 Hct 37.9 L MCV 80.5 MCH 29.3 MCHC 36.4 H RDW 13.0 RDW Differential 37.4 Plt Count 291 MPV 10.8 Immature Gran % (Auto) 0.500 Neut % (Auto) 65.4 Lymph % (Auto) 19.3 [place] % (Auto) 13.2 H Eos % (Auto) 1.3 Baso % (Auto) 0.3 Absolute Neuts (auto) 5.0 Absolute Lymphs (auto) 1.48 Total Counted Not Reportable Sodium Potassium Chloride Carbon Dioxide Anion Gap BUN Creatinine Estim Creat Clear Calc Est GFR (MDRD) Af Amer Est GFR (MDRD) Non-Af BUN/Creatinine Ratio Glucose Calcium Total Bilirubin AST ALT Alkaline Phosphatase Total Protein Albumin Globulin Albumin/Globulin Ratio Ur Random Sodium 47 Urine Creatinine 37.30 11/15/17 06:00 WBC RBC Hgb Hct MCV MCH MCHC RDW RDW Differential Plt Count MPV Immature Gran % (Auto) Neut % (Auto) Lymph % (Auto) [place] % (Auto) Eos % (Auto) Baso % (Auto) Absolute Neuts (auto) Absolute Lymphs (auto) Total Counted Sodium 137 Potassium 3.9 Chloride 107 Carbon Dioxide 18.0 L Anion Gap 12 BUN 49 H Creatinine 1.46 H Estim Creat Clear Calc 64.61 Est GFR (MDRD) Af Amer 64 Est GFR (MDRD) Non-Af 53 L BUN/Creatinine Ratio 33.6 H Glucose 175 H Calcium 8.0 L Total Bilirubin 0.90 AST 33 ALT 103 H Alkaline Phosphatase 75 Total Protein 6.4 Albumin 3.3 Globulin 3.1 Albumin/Globulin Ratio 1.1 Ur Random Sodium Urine Creatinine POC Glucose 11/15/17 11/15/17 11/14/17 11:44 07:00 23:23 POC Glucose 231 H 163 H 145 H 11/14/17 16:36 POC Glucose 140 H Medical Necessity - Tobacco Use Smoking Status: Former smoker Assessment/Plan All Active Problems SIRS (systemic inflammatory response syndrome) (Acute) LUIS ANTONIO (acute kidney injury) (Acute) ARF (acute renal failure) (Acute) 1. Acute kidney injury-suspect secondary to high output from ileostomy and urinary retention. Continue IV fluids. [place] catheter placed with immediate return of 1500 cc urine. Patient started on Flomax. Trend BMP. Dr. Umanzor consulted for high output ileostomy. Patient was started on Sandostatin 0.1 mg subcu 3 times daily. Continue IV fluids. Scheduled Imodium. Recent stool studies 11/04/2017 negative. Strict I&O. Renal ultrasound demonstrated mild left hydronephrosis. Creat significantly improved with IV fluids. Creat 3.67 on admission. Creatinine today 1.46. Nephrology consulted, pending. 2. Acute pulmonary embolism-CTA of chest demonstrated pulmonary embolism within right middle lobe. Continue Eliquis 10 mg twice daily for 7 days. Stop date 11/20/2017. Patient will then transition to Eliquis 5 mg twice daily. Echocardiogram ordered, pending. 3. Hyponatremia-secondary to hypovolemia. Resolved with IV fluids. 4. Leukocytosis/lactic acidosis-suspect secondary to hypovolemia. Improved with IV fluids. 5. Hypertension-stable, continue to monitor. Hold lisinopril secondary to #1. 6. Hyperlipidemia-continue statin. 7. Chronic constipation status post recent ileostomy placement at [facility] Main campus. 8. Schizoaffective disorder-continue home medication regimen. 9. Type 2 diabetes [id number] before meals at bedtime with sliding scale insulin. DVT prophylaxis-Eliquis This patient was seen by FAUSTINO Ocampo under the supervision of Dr. Schuster. <Deneen Schuster - Last Filed: 11/15/17 15:28> - Physical Exam Vital Signs Temp Pulse Resp BP Pulse Ox 98.6 F 86 16 130/75 H 96 11/15/17 14:35 11/15/17 14:35 11/15/17 14:35 11/15/17 14:35 11/15/17 14:35 Oxygen Delivery Method Room Air Weight: 91 kg Body Mass Index (BMI) 26.4 Orthostatic Vital Signs Start: 11/14/17 12:29 Freq: q24h Status: Active Protocol: Activity Type Activity Date Activity User E-Sign Co-Sign Detail Recorded Client Recorded Date Recorded By Document 11/14/17 12:29 MLB [id number] 11/14/17 12:30 MLB 11/14/17 12:29 Orthostatic Vitals Standing -Blood Pressure (90/60-120/80) 114/70 -Extremity Use Left Arm -Pulse Rate (60-100) 117 H Sitting -Blood Pressure (90/60-120/80) 105/64 -Extremity Use Left Arm -Pulse Rate (60-100) 118 H Lying -Blood Pressure (90/60-120/80) 113/58 L -Extremity Use Left Arm -Pulse Rate (60-100) 71 Intake and Output for Last 24 Hours 11/13/17 11/14/17 11/15/17 23:59 23:59 23:59 Intake Total 4329 / 4329 3383 / 3383 Output Total 3950 / 3950 5800 / 5800 Balance 379 / 379 -2417 / -2417 Laboratory Tests Past 24 Hrs 11/14/17 11/14/17 11/15/17 17:30 17:30 06:00 WBC 7.7 RBC 4.71 Hgb 13.8 Hct 37.9 L MCV 80.5 MCH 29.3 MCHC 36.4 H RDW 13.0 RDW Differential 37.4 Plt Count 291 MPV 10.8 Immature Gran % (Auto) 0.500 Neut % (Auto) 65.4 Lymph % (Auto) 19.3 [place] % (Auto) 13.2 H Eos % (Auto) 1.3 Baso % (Auto) 0.3 Absolute Neuts (auto) 5.0 Absolute Lymphs (auto) 1.48 Total Counted Not Reportable Sodium Potassium Chloride Carbon Dioxide Anion Gap BUN Creatinine Estim Creat Clear Calc Est GFR (MDRD) Af Amer Est GFR (MDRD) Non-Af BUN/Creatinine Ratio Glucose Calcium Total Bilirubin AST ALT Alkaline Phosphatase Total Protein Albumin Globulin Albumin/Globulin Ratio Ur Random Sodium 47 Urine Creatinine 37.30 11/15/17 06:00 WBC RBC Hgb Hct MCV MCH MCHC RDW RDW Differential Plt Count MPV Immature Gran % (Auto) Neut % (Auto) Lymph % (Auto) [place] % (Auto) Eos % (Auto) Baso % (Auto) Absolute Neuts (auto) Absolute Lymphs (auto) Total Counted Sodium 137 Potassium 3.9 Chloride 107 Carbon Dioxide 18.0 L Anion Gap 12 BUN 49 H Creatinine 1.46 H Estim Creat Clear Calc 64.61 Est GFR (MDRD) Af Amer 64 Est GFR (MDRD) Non-Af 53 L BUN/Creatinine Ratio 33.6 H Glucose 175 H Calcium 8.0 L Total Bilirubin 0.90 AST 33 ALT 103 H Alkaline Phosphatase 75 Total Protein 6.4 Albumin 3.3 Globulin 3.1 Albumin/Globulin Ratio 1.1 Ur Random Sodium Urine Creatinine POC Glucose 11/15/17 11/15/17 11/14/17 11:44 07:00 23:23 POC Glucose 231 H 163 H 145 H 11/14/17 16:36 POC Glucose 140 H Assessment/Plan Patient seen and examined. Feels improved, denies any fever or chills. Vitals have remained stable. On IV fluids. Physical exam is unchanged Labs reviewed, improvement in creatinine; is 1.46 from 3.4 Continue with Imodium and Linzess Labs in the morning Code Visit Inpatient E&M: [id number] Subs Hosp L2
--- NOTE | 2017-11-15 13:50 | CASEMGMT ---
Readmission chart review, see CM assessment completed by this RN CM 11/05/17. Pt admitted this visit for PE and acute renal failure s/p recent ileostomy. Pt is current with [facility] for RN, PT/OT. Pt states no changes since previous CM assessment. CM to follow for any further discharge planning/needs. [place] RN CM
--- NOTE | 2017-11-15 14:22 | CON.PCM_ITS ---
Problem List (1) ARF (acute renal failure) Status: Acute Consultation - Renal 11/15/17 PCP/ Referring MD: Requesting physician: [] Primary care physician: Moises Tejeda Reason for Consultation:: LUIS ANTONIO - History of Present Illness History of Present Illness: The patient is a 57 year old M who was admitted to hospital with weakness and dyspnea. has chronic history of constipation requiring multiple procedures, hence ileostomy was done about 3 weeks ago. now presented with increased ileostomy output since then. found to have LUIS ANTONIO, hyponatremia, hypokalemia on admission. for dyspnea, he had a CT chest with contrast. showed PE. now on eliquis overnight kidney numbers improved significantly with fluids alone. also found to have urinary retention, kulkarni placed with immediate return of 1500cc of urine. couldnt tell me exactly onset of symptoms of urinary retention denies any complaints today - Allergies Allergies: Allergies No Known Allergies Allergy (Verified 11/13/17 18:10) - Current Medications Current Medications: Current Medications Apixaban (Eliquis) 10 mg PO BID [facility] Stop: 11/20/17 00:00 Last Admin: 11/15/17 08:32 Dose: 10 mg Atorvastatin Calcium (Lipitor) 5 mg PO QHS [facility] Last Admin: 11/14/17 23:29 Dose: 5 mg Benztropine Mesylate (Cogentin) 1 mg PO BID [facility] Last Admin: 11/15/17 08:32 Dose: 1 mg Clozapine (Clozaril) 100 mg PO BID [facility] Last Admin: 11/15/17 08:31 Dose: 100 mg Sodium Chloride () 1,000 mls @ 150 mls/hr IV .Q6H40M [facility] Last Admin: 11/15/17 14:20 Dose: 150 mls/hr Insulin Human Lispro (Humalog Kwikpen (Bkc)) 0 unit SC ACHS [facility] PRN Reason: Protocol Last Admin: 11/15/17 11:15 Dose: 3 units Linaclotide (Linzess) 290 mcg PO DAILY@0730 [facility] Last Admin: 11/15/17 08:30 Dose: Not Given Loperamide HCl (Imodium) 2 mg PO Q4H [facility] Last Admin: 11/15/17 13:49 Dose: 2 mg Montelukast Sodium (Singulair) 10 mg PO DAILY [facility] Last Admin: 11/15/17 08:33 Dose: 10 mg Octreotide Acetate (Sandostatin) 0.1 mg SC TID [facility] Last Admin: 11/15/17 13:49 Dose: 0.1 mg Oxycodone HCl (Oxyir) 5 mg PO Q4H PRN PRN PRN Reason: Moderate Pain (pain scale 4-5) Pantoprazole Sodium (Protonix) 40 mg PO DAILY [facility] Last Admin: 11/15/17 08:33 Dose: 40 mg Perphenazine (Perphenazine) 8 mg PO 4X/DAY [facility] Last Admin: 11/15/17 13:49 Dose: 8 mg Psyllium Hydrophilic Mucilloid (Metamucil) 1 packet PO BID [facility] Last Admin: 11/15/17 08:32 Dose: 1 packet Sodium Chloride () 5 - 30 ml IV UD PRN PRN Reason: SALINE FLUSH Last Admin: 11/14/17 00:20 Dose: 10 ml Tamsulosin HCl (Flomax) 0.4 mg PO DAILY@0830 [facility] Last Admin: 11/15/17 08:31 Dose: 0.4 mg - Past Medical History Past Medical History (Chronic Problems): Chronic Problems S/P ileostomy (Chronic) HTN (hypertension) (Chronic) Diabetes mellitus (Chronic) HLD (hyperlipidemia) (Chronic) Schizoaffective disorder (Chronic) Nicotine abuse (Chronic) - Past Surgical History Surgical History: - - ileostomy - Social History Smoking Status: Former smoker - Family History Maternal History Items: High Cholesterol Paternal History Items: Unknown Review of Systems Comment: ROS negative except above Patient Problems: Active and Suspected Problems ARF (acute renal failure) (Acute) - Physical Exam General: Alert - ileostomy with watery output, Oriented x3, Cooperative HEENT: Atraumatic, PERRLA, EOMI, Normocephalic Neck: Supple, No JVD, Negative Carotid Bruits Lungs: Clear to auscultation, Normal air movement Cardiovascular: Regular rate, No murmurs Abdomen: Bowel Sounds Present, Soft, Non Tender Extremities: No edema, Capillary Refill Less than 3 Seconds Skin: No rashes, No breakdown Musculoskeletal: No Tenderness to Palpation of Joints or Extremities Neurological: Cranial nerves II-XII grossly intact Psych/Mental Status: Normal Affect, Appropriate Vital Signs Temp Pulse Resp BP Pulse Ox 98.3 F 85 14 110/73 98 11/15/17 08:37 11/15/17 11:00 11/15/17 08:37 11/15/17 08:37 11/15/17 08:37 Oxygen Delivery Method Room Air Weight: 91 kg Body Mass Index (BMI) 26.4 Orthostatic Vital Signs Start: 11/14/17 12:29 Freq: q24h Status: Active Protocol: Activity Type Activity Date Activity User E-Sign Co-Sign Detail Recorded Client Recorded Date Recorded By Document 11/14/17 12:29 MLB [id number] 11/14/17 12:30 MLB 11/14/17 12:29 Orthostatic Vitals Standing -Blood Pressure (90/60-120/80 mm Hg) 114/70 -Extremity Use Left Arm -Pulse Rate (60-100 beats/min) 117 H Sitting -Blood Pressure (90/60-120/80 mm Hg) 105/64 -Extremity Use Left Arm -Pulse Rate (60-100 beats/min) 118 H Lying -Blood Pressure (90/60-120/80 mm Hg) 113/58 L -Extremity Use Left Arm -Pulse Rate (60-100 beats/min) 71 Intake and Output for Last 24 Hours 11/13/17 11/14/17 11/15/17 23:59 23:59 23:59 Intake Total 4329 / 4329 3383 / 3383 Output Total 3950 / 3950 5800 / 5800 Balance 379 / 379 -2417 / -2417 Laboratory Tests Past 24 Hrs 11/14/17 11/14/17 11/15/17 17:30 17:30 06:00 WBC 7.7 RBC 4.71 Hgb 13.8 Hct 37.9 L MCV 80.5 MCH 29.3 MCHC 36.4 H RDW 13.0 RDW Differential 37.4 Plt Count 291 MPV 10.8 Immature Gran % (Auto) 0.500 Neut % (Auto) 65.4 Lymph % (Auto) 19.3 [place] % (Auto) 13.2 H Eos % (Auto) 1.3 Baso % (Auto) 0.3 Absolute Neuts (auto) 5.0 Absolute Lymphs (auto) 1.48 Total Counted Not Reportable Sodium Potassium Chloride Carbon Dioxide Anion Gap BUN Creatinine Estim Creat Clear Calc Est GFR (MDRD) Af Amer Est GFR (MDRD) Non-Af BUN/Creatinine Ratio Glucose Calcium Total Bilirubin AST ALT Alkaline Phosphatase Total Protein Albumin Globulin Albumin/Globulin Ratio Ur Random Sodium 47 Urine Creatinine 37.30 11/15/17 06:00 WBC RBC Hgb Hct MCV MCH MCHC RDW RDW Differential Plt Count MPV Immature Gran % (Auto) Neut % (Auto) Lymph % (Auto) [place] % (Auto) Eos % (Auto) Baso % (Auto) Absolute Neuts (auto) Absolute Lymphs (auto) Total Counted Sodium 137 Potassium 3.9 Chloride 107 Carbon Dioxide 18.0 L Anion Gap 12 BUN 49 H Creatinine 1.46 H Estim Creat Clear Calc 64.61 Est GFR (MDRD) Af Amer 64 Est GFR (MDRD) Non-Af 53 L BUN/Creatinine Ratio 33.6 H Glucose 175 H Calcium 8.0 L Total Bilirubin 0.90 AST 33 ALT 103 H Alkaline Phosphatase 75 Total Protein 6.4 Albumin 3.3 Globulin 3.1 Albumin/Globulin Ratio 1.1 Ur Random Sodium Urine Creatinine POC Glucose 11/15/17 11/15/17 11/14/17 11:44 07:00 23:23 POC Glucose 231 H 163 H 145 H 11/14/17 16:36 POC Glucose 140 H Assessment/Plan All Active Problems SIRS (systemic inflammatory response syndrome) (Acute) LUIS ANTONIO (acute kidney injury) (Acute) ARF (acute renal failure) (Acute) LUIS ANTONIO. presumably normal baseline. with kulkarni placement and fluid repletion, creatinine improved significantly. UA looks fairly benign. Renal USG shows mild hydronephrosis but this could be result of preexisting hydronephrosis. since creatinine is significantly better, hold off on further work up Hyponatremia. hypovolemic. better Hypokalemia. repleted high ileostomy output. started on sandostatin by Dr Umanzor
[2017-11-15 16:11] LABS: Bedside Glucose 179 mg/dL (70-110)
[2017-11-15] MEDS: PERPHENAZINE 8 MG TABLET PO ×2 (17:16→21:01)
[2017-11-15] MEDS: Atorvastatin Calcium 10 MG Tablet 5 MG PO (21:00)
[2017-11-15 21:50] LABS: Bedside Glucose 124 mg/dL (70-110)
[2017-11-16] VITALS (13 sets, daily range): BP systolic 112–133; BP diastolic 62–87; PULSE 68–120; RESP 18–23; TEMP 36.4–36.6; O2SAT 97–99
[2017-11-16] MEDS: Loperamide 2 MG Capsule PO ×6 (02:36→21:17)
[2017-11-16] MEDS: 0.9% Normal Saline 1,000 ML 150 ML IV ×3 (03:50→17:36)
[2017-11-16] MEDS: Octreotide 0.1 MG/ML ML SC ×3 (05:40→21:25)
[2017-11-16 06:21] LABS: Absolute Lymphocyte Count 1.52 X10^3/ul (0.83-4.51); Absolute Neutrophil Count 9.3 X10^3/uL (2.0-7.7); Basophil# 0.03 X10^3/uL; Basophil% 0.2 % (0-1); Eosinophil# 0.22 X10^3/uL; Eosinophils% 1.8 % (0-5); Hematocrit 36.5 % (40-54); Hemoglobin 13.2 g/dl (13.0-16.5); Lymphocyte # 1.52 X10^3/ul (4.0); Lymphocyte % 12.2 % (19-41); Mean Corp Hgb Conc 36.2 g/gl (32-36); Mean Corpuscular Hgb 29.5 pg (27.0-32.0); Mean Corpuscular Volume 81.7 fL (80-94); Mean Platelet Vol. 10.4 fl (6.2-12.0); Monocyte# 1.38 X10^3/uL; Monocyte% 11.1 % (0-10); Neutrophil # 9.28 X10^3/uL (2.7-7.7); Neutrophil % 74.5 % (47-70); Platelet Count 283 K/mm3 (150-450); RBC Distribution Width CV 13.2 % (11.6-14.6); RBC Distribution Width SD 38.6 fl (35.1-43.9); Red Blood Count 4.47 M/mm3 (4.6-6.2); White Blood Count 12.5 K/mm3 (4.4-11.0)
[2017-11-16 06:23] LABS: POSITIVE COUNT NO; POSITIVE DIFFERENTIAL NO; POSITIVE MORPHOLOGY NO
[2017-11-16 06:38] LABS: AST(SGOT) 24 U/L (15-37); Alanine Aminotransfer ALT/SGPT 82 U/L (16-61); Albumin, Serum 3.1 g/dL (3.2-5.0); Alkaline Phosphatase 69 U/L (45-117); Anion Gap 7 (5-15); BUN 25 mg/dL (7-18); BUN/Creat Ratio 26.5 RATIO (10-20); Calcium,Total 7.6 mg/dL (8.5-10.1); Chloride 113 mmol/L (98-107); Creatinine, Serum 0.94 mg/dL (0.70-1.30); EST Glomerular Filtration Rate 88 mL/min (>60); Est Glom Filt Rate - Afr Amer 107 mL/min (>60); Estimated Creatinine Clearance 100.35 ml/min; Globulin 3.1 g/dL (2.2-4.2); Glucose 131 mg/dL (74-106); Potassium 3.7 mmol/L (3.5-5.1); Protein, Total 6.2 g/dL (6.4-8.2); Sodium Level 139 mmol/L (136-145)
[2017-11-16 06:55] LABS: Bedside Glucose 142 mg/dL (70-110)
--- NOTE | 2017-11-16 07:03 | PN.SURG_ITS ---
Patient Problems: Active and Suspected Problems ARF (acute renal failure) (Acute) Subjective: missed note for 11/15 - still loose stools - Physical Exam General: Alert, Oriented x3 Abdomen: Bowel Sounds Present, Soft, - - ileostomy output still liquid some early solidification Vital Signs Temp Pulse Resp BP Pulse Ox 97.9 F 77 18 112/62 99 11/16/17 03:00 11/16/17 03:00 11/16/17 03:00 11/16/17 03:00 11/16/17 03:00 Oxygen Delivery Method Room Air Weight: 91 kg Body Mass Index (BMI) 26.4 Orthostatic Vital Signs Start: 11/14/17 12:29 Freq: PRN Status: Active Protocol: Activity Type Activity Date Activity User E-Sign Co-Sign Detail Recorded Client Recorded Date Recorded By Document 11/14/17 12:29 MLB [id number] 11/14/17 12:30 MLB 11/14/17 12:29 Orthostatic Vitals Standing -Blood Pressure (90/60-120/80) 114/70 -Extremity Use Left Arm -Pulse Rate (60-100) 117 H Sitting -Blood Pressure (90/60-120/80) 105/64 -Extremity Use Left Arm -Pulse Rate (60-100) 118 H Lying -Blood Pressure (90/60-120/80) 113/58 L -Extremity Use Left Arm -Pulse Rate (60-100) 71 Intake and Output for Last 24 Hours 11/14/17 11/15/17 11/16/17 23:59 23:59 23:59 Intake Total 4329 / 4329 6042 / 6042 1001 / 1001 Output Total 3950 / 3950 8225 / 8225 1300 / 1300 Balance 379 / 379 -2183 / -2183 -299 / -299 Laboratory Tests Past 24 Hrs 11/15/17 11/15/17 11/16/17 06:00 06:00 05:45 WBC 7.7 12.5 H RBC 4.71 4.47 L Hgb 13.8 13.2 Hct 37.9 L 36.5 L MCV 80.5 81.7 MCH 29.3 29.5 MCHC 36.4 H 36.2 H RDW 13.0 13.2 RDW Differential 37.4 38.6 Plt Count 291 283 MPV 10.8 10.4 Immature Gran % (Auto) 0.500 0.200 Neut % (Auto) 65.4 74.5 H Lymph % (Auto) 19.3 12.2 L [place] % (Auto) 13.2 H 11.1 H Eos % (Auto) 1.3 1.8 Baso % (Auto) 0.3 0.2 Absolute Neuts (auto) 5.0 9.3 H Absolute Lymphs (auto) 1.48 1.52 Total Counted Not Reportable Not Reportable Sodium 137 Potassium 3.9 Chloride 107 Carbon Dioxide 18.0 L Anion Gap 12 BUN 49 H Creatinine 1.46 H Estim Creat Clear Calc 64.61 Est GFR (MDRD) Af Amer 64 Est GFR (MDRD) Non-Af 53 L BUN/Creatinine Ratio 33.6 H Glucose 175 H Calcium 8.0 L Total Bilirubin 0.90 AST 33 ALT 103 H Alkaline Phosphatase 75 Total Protein 6.4 Albumin 3.3 Globulin 3.1 Albumin/Globulin Ratio 1.1 11/16/17 05:45 WBC RBC Hgb Hct MCV MCH MCHC RDW RDW Differential Plt Count MPV Immature Gran % (Auto) Neut % (Auto) Lymph % (Auto) [place] % (Auto) Eos % (Auto) Baso % (Auto) Absolute Neuts (auto) Absolute Lymphs (auto) Total Counted Sodium 139 Potassium 3.7 Chloride 113 H Carbon Dioxide 19.0 L Anion Gap 7 BUN 25 H Creatinine 0.94 Estim Creat Clear Calc 100.35 Est GFR (MDRD) Af Amer 107 Est GFR (MDRD) Non-Af 88 BUN/Creatinine Ratio 26.5 H Glucose 131 H Calcium 7.6 L Total Bilirubin 1.10 H AST 24 ALT 82 H Alkaline Phosphatase 69 Total Protein 6.2 L Albumin 3.1 L Globulin 3.1 Albumin/Globulin Ratio 1.0 POC Glucose 11/16/17 11/15/17 11/15/17 06:39 20:50 16:06 POC Glucose 142 H 124 H 179 H 11/15/17 11/15/17 11:44 07:00 POC Glucose 231 H 163 H Medical Necessity - Tobacco Use Smoking Status: Former smoker Assessment/Plan All Active Problems SIRS (systemic inflammatory response syndrome) (Acute) LUIS ANTONIO (acute kidney injury) (Acute) ARF (acute renal failure) (Acute) High stoma output, dehydration, PE on CT scan, likely dehydration from high stoma output, history of chronic constipation, shortness of breath, PE, history of schizoaffective disorder I would monitor strict ins and outs to assess the total ileostomy output. IV hydration to prevent extending acute renal injury secondatotal ry to dehydration and IV contrast load. Orally - would try to limit total oral liquid intake and try to minimize osmotically active liquids - would try to hold glucerna/ensure for now. Try smaller solid meals, fiber supplements. will add somatostatin and lomotil or immodium.
[2017-11-16] MEDS: APIXABAN 5 MG TABLET 10 MG PO ×2 (09:15→21:17)
[2017-11-16] MEDS: PERPHENAZINE 8 MG TABLET PO ×4 (09:15→21:18)
[2017-11-16] MEDS: Montelukast 10 MG Tablet PO (09:15)
[2017-11-16] MEDS: Pantoprazole Sodium 40 MG Tablet PO (09:15)
[2017-11-16] MEDS: Psyllium 1 PACKET PO ×2 (09:15→21:18)
[2017-11-16] MEDS: Benztropine 2 MG Tablet 1 MG PO ×2 (09:16→21:16)
[2017-11-16] MEDS: Tamsulosin HCl 0.4 MG Capsule PO (09:16)
--- NOTE | 2017-11-16 10:42 | NURSING ---
In to reassess the ileostomy appliance. there are no signs of leakage noted. patient states he prefers these appliances must better than the ones he had at home. Had patient bring supplies in from home. pt was using a convex [employer]oplast appliance at home. patient states he was having leaks after about 5 hours. stool is currently a soft shelley color. patient still has lots of questions about appliances changes. Pt states his parents are not ready to have him back home yet. Feel patient will need repetitive ostomy teaching before he feels comfortable changing things at home. there was stool all over the appliances that he brought in from home. would recommend changing to [place] appliances since they seem to adhere to patient's skin better. patient also feels more comfortable with them. new supply script given to patient as well as have a copy on the front of the chart. Discussed concerns with MARIA L Burns and the machine adjuster leader case trim. Also discussed with home health liaison. will follow as needed.
[2017-11-16] MEDS: Insulin Lispro 100 UNIT/ML INSULN.PEN SC ×2 (11:20→21:17)
[2017-11-16 11:35] LABS: Bedside Glucose 206 mg/dL (70-110)
--- NOTE | 2017-11-16 11:58 | CASEMGMT ---
Per Moni, quarter folder, pt needs more teaching in regards to ileostomy. This RN CM spoke with Verónica at [facility] and she is made aware of need for increased/repeated teaching for pt at this time. Resumption order is in and pt is to be discharged today. SStaten RN CM
--- NOTE | 2017-11-16 12:27 | CASEMGMT ---
Per several staff members patient is asking about assisted living. OG explained to patient and his step dad that SW is not going to be able to get patient to assisted living from [facility]. OG explained that he would have to go through his [employer] to get on the [place] waiver program. OG explained someone has to come out and do an assessment to get him on the program. OG explained we would not be able to send him to a detention as he does not have any skilled needs. OG explained help with his ileostomy is not going to be enough of a skilled need for a detention. Patient's step father asked is SW could talk to patient's mom. OG called patient's mom, Maryam and let her know SW is making a referral to insurance for the assisted living waiver program. OG explained that is how he will get into assisted living on his insurance. OG explained someone will come out and do an assessment. OG told her this is not a fast process as it has to go through all the proper channels. She said she understands. OG told her he is going to be discharged today. OG went back to the room and let patient and his step dad know this information. Patient's step dad asked if home health could come out daily. OG told him that would not be covered by insurance. He asked if there was a private pay option. OG gave him a list of private duty agencies and told him the prices are not up to date on the sheet and he would have to call the agencies for current pricing. OG called [facility] and OG was told since patient is on [employer] his insurance would have to come out and do the assessment. [facility] and found [facility] disease [facility] is Hipolito Newman ([phone]). OG called Hipolito and left her a message making referral and also asked her to return OG's phone call. Plan: d/c home with resumption of [facility] HH and [facility] an [facility] for [facility] waiver program. Emergency Care Tech is also being added to his home health services. Bonita [place] DEALER SALES MANAGER
--- NOTE | 2017-11-16 12:38 | PCM.PN.REN ---
Patient Problems: Active and Suspected Problems ARF (acute renal failure) (Acute) Subjective: no new complaints - Physical Exam General: Alert, Oriented x3, Cooperative HEENT: Atraumatic, PERRLA, EOMI, Normocephalic Neck: Supple, No JVD, Negative Carotid Bruits Lungs: Clear to auscultation, Normal air movement Cardiovascular: Regular rate, No murmurs Abdomen: Bowel Sounds Present, Soft, Non Tender Extremities: No edema, Capillary Refill Less than 3 Seconds Skin: No rashes, No breakdown Musculoskeletal: No Tenderness to Palpation of Joints or Extremities Neurological: Cranial nerves II-XII grossly intact Psych/Mental Status: Normal Affect, Appropriate Vital Signs Temp Pulse Resp BP Pulse Ox 97.8 F 76 18 129/78 H 98 11/16/17 09:12 11/16/17 11:00 11/16/17 09:12 11/16/17 09:12 11/16/17 09:12 Oxygen Delivery Method Room Air Weight: 91 kg Body Mass Index (BMI) 26.4 Orthostatic Vital Signs Start: 11/14/17 12:29 Freq: PRN Status: Active Protocol: Activity Type Activity Date Activity User E-Sign Co-Sign Detail Recorded Client Recorded Date Recorded By Document 11/14/17 12:29 MLB [id number] 11/14/17 12:30 MLB 11/14/17 12:29 Orthostatic Vitals Standing -Blood Pressure (90/60-120/80) 114/70 -Extremity Use Left Arm -Pulse Rate (60-100) 117 H Sitting -Blood Pressure (90/60-120/80) 105/64 -Extremity Use Left Arm -Pulse Rate (60-100) 118 H Lying -Blood Pressure (90/60-120/80) 113/58 L -Extremity Use Left Arm -Pulse Rate (60-100) 71 Intake and Output for Last 24 Hours 11/14/17 11/15/17 11/16/17 23:59 23:59 23:59 Intake Total 4329 / 4329 6042 / 6042 2369 / 2369 Output Total 3950 / 3950 8225 / 8225 2200 / 2200 Balance 379 / 379 -2183 / -2183 169 / 169 Laboratory Tests Past 24 Hrs 11/16/17 11/16/17 05:45 05:45 WBC 12.5 H RBC 4.47 L Hgb 13.2 Hct 36.5 L MCV 81.7 MCH 29.5 MCHC 36.2 H RDW 13.2 RDW Differential 38.6 Plt Count 283 MPV 10.4 Immature Gran % (Auto) 0.200 Neut % (Auto) 74.5 H Lymph % (Auto) 12.2 L [place] % (Auto) 11.1 H Eos % (Auto) 1.8 Baso % (Auto) 0.2 Absolute Neuts (auto) 9.3 H Absolute Lymphs (auto) 1.52 Total Counted Not Reportable Sodium 139 Potassium 3.7 Chloride 113 H Carbon Dioxide 19.0 L Anion Gap 7 BUN 25 H Creatinine 0.94 Estim Creat Clear Calc 100.35 Est GFR (MDRD) Af Amer 107 Est GFR (MDRD) Non-Af 88 BUN/Creatinine Ratio 26.5 H Glucose 131 H Calcium 7.6 L Total Bilirubin 1.10 H AST 24 ALT 82 H Alkaline Phosphatase 69 Total Protein 6.2 L Albumin 3.1 L Globulin 3.1 Albumin/Globulin Ratio 1.0 POC Glucose 11/16/17 11/16/17 11/15/17 11:18 06:39 20:50 POC Glucose 206 H 142 H 124 H 11/15/17 16:06 POC Glucose 179 H Medical Necessity - Tobacco Use Smoking Status: Former smoker Assessment/Plan All Active Problems SIRS (systemic inflammatory response syndrome) (Acute) LUIS ANTONIO (acute kidney injury) (Acute) ARF (acute renal failure) (Acute) LUIS ANTONIO. presumably normal baseline. with kulkarni placement and fluid repletion, creatinine improved significantly. UA looks fairly benign. Renal USG shows mild hydronephrosis but this could be result of preexisting hydronephrosis. since creatinine is significantly better, hold off on further work up Hyponatremia. hypovolemic. better Hypokalemia. repleted high ileostomy output. started on sandostatin by Dr Umanzor voiding trial as per Dr Schuster
--- NOTE | 2017-11-16 12:55 | PCM.PN.SRG ---
Patient Problems: Active and Suspected Problems ARF (acute renal failure) (Acute) Subjective: still significant output from the stoma, solidifying more - Physical Exam General: Alert, Oriented x3 Lungs: Clear to auscultation, Normal air movement Cardiovascular: Regular rate, Regular Rhythm Abdomen: Bowel Sounds Present, Soft, Non Tender, - - some solids now in stoma bag Vital Signs Temp Pulse Resp BP Pulse Ox 97.8 F 76 18 129/78 H 98 11/16/17 09:12 11/16/17 11:00 11/16/17 09:12 11/16/17 09:12 11/16/17 09:12 Oxygen Delivery Method Room Air Weight: 91 kg Body Mass Index (BMI) 26.4 Orthostatic Vital Signs Start: 11/14/17 12:29 Freq: PRN Status: Active Protocol: Activity Type Activity Date Activity User E-Sign Co-Sign Detail Recorded Client Recorded Date Recorded By Document 11/14/17 12:29 MLB [id number] 11/14/17 12:30 MLB 11/14/17 12:29 Orthostatic Vitals Standing -Blood Pressure (90/60-120/80) 114/70 -Extremity Use Left Arm -Pulse Rate (60-100) 117 H Sitting -Blood Pressure (90/60-120/80) 105/64 -Extremity Use Left Arm -Pulse Rate (60-100) 118 H Lying -Blood Pressure (90/60-120/80) 113/58 L -Extremity Use Left Arm -Pulse Rate (60-100) 71 Intake and Output for Last 24 Hours 11/14/17 11/15/17 11/16/17 23:59 23:59 23:59 Intake Total 4329 / 4329 6042 / 6042 2369 / 2369 Output Total 3950 / 3950 8225 / 8225 2200 / 2200 Balance 379 / 379 -2183 / -2183 169 / 169 Laboratory Tests Past 24 Hrs 11/16/17 11/16/17 05:45 05:45 WBC 12.5 H RBC 4.47 L Hgb 13.2 Hct 36.5 L MCV 81.7 MCH 29.5 MCHC 36.2 H RDW 13.2 RDW Differential 38.6 Plt Count 283 MPV 10.4 Immature Gran % (Auto) 0.200 Neut % (Auto) 74.5 H Lymph % (Auto) 12.2 L [place] % (Auto) 11.1 H Eos % (Auto) 1.8 Baso % (Auto) 0.2 Absolute Neuts (auto) 9.3 H Absolute Lymphs (auto) 1.52 Total Counted Not Reportable Sodium 139 Potassium 3.7 Chloride 113 H Carbon Dioxide 19.0 L Anion Gap 7 BUN 25 H Creatinine 0.94 Estim Creat Clear Calc 100.35 Est GFR (MDRD) Af Amer 107 Est GFR (MDRD) Non-Af 88 BUN/Creatinine Ratio 26.5 H Glucose 131 H Calcium 7.6 L Total Bilirubin 1.10 H AST 24 ALT 82 H Alkaline Phosphatase 69 Total Protein 6.2 L Albumin 3.1 L Globulin 3.1 Albumin/Globulin Ratio 1.0 POC Glucose 11/16/17 11/16/17 11/15/17 11:18 06:39 20:50 POC Glucose 206 H 142 H 124 H 11/15/17 16:06 POC Glucose 179 H Medical Necessity - Tobacco Use Smoking Status: Former smoker Assessment/Plan All Active Problems SIRS (systemic inflammatory response syndrome) (Acute) LUIS ANTONIO (acute kidney injury) (Acute) ARF (acute renal failure) (Acute) High stoma output, dehydration, PE on CT scan, likely dehydration from high stoma output, history of chronic constipation, shortness of breath, PE, history of schizoaffective disorder I would monitor strict ins and outs to assess the total ileostomy output. IV hydration to prevent extending acute renal injury secondatotal ry to dehydration and IV contrast load. Orally - would try to limit total oral liquid intake and try to minimize osmotically active liquids - would try to hold glucerna/ensure for now. Try smaller solid meals, fiber supplements. will add somatostatin and lomotil or immodium.
--- NOTE | 2017-11-16 12:58 | PCM.DC.SUM ---
<Katy Ocampo - Last Filed: 11/17/17 15:41> Discharge Date and Diagnosis Date of Admission: 11/13/17 Date of Discharge: 11/16/17 - Primary Discharge Diagnosis Active and Suspected Problems 1. Acute kidney injury secondary to high output from ileostomy and urinary retention 2. Acute pulmonary embolism 3. Hyponatremia-resolved. 4. Leukocytosis/lactic acidosis,secondary to hypovolemia-resolved with IV fluids. - Secondary Discharge Diagnosis Chronic Problems S/P ileostomy (Chronic) HTN (hypertension) (Chronic) Diabetes mellitus (Chronic) HLD (hyperlipidemia) (Chronic) Schizoaffective disorder (Chronic) Nicotine abuse (Chronic) Hospital Course and Treatment Imaging Results: Diagnostic Data Chest CTA 11/13/17 18:09 IMPRESSION: Pulmonary embolus within a right middle lobe subsegmental pulmonary artery. Atherosclerosis. Cholelithiasis. N.B. : The above information has been verbally conveyed by Milagros Dasilva MD to Dr lawson , Referring Physician, on 11/13/2017 18:58:56 (ET). Electronically Signed: Milagros Dasilva MD at 18:52 EDT Tel , Service support , Chest X-Ray 11/13/17 19:22 IMPRESSION: No acute cardiopulmonary process. 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 Umanzor- Surgery Dr. Richardson- Nephrology Operations: None Procedures: 2-D Echocardiogram Summary of Care Provided: 1. Acute kidney injury-suspect secondary to high output from ileostomy and urinary retention. Moreno catheter placed with immediate return of 1500 cc urine. Patient started on Flomax. Moreno removed prior to discharge and patient voiding without difficulty. Dr. Umanzor consulted for high output ileostomy. Patient was started on Sandostatin 0.1 mg subcu 3 times daily which will further be discontinued at discharge. If liquid stools continue, this may be restarted at that time. Linzess discontinued which is thought to be part of cause for diarrhea. Continue scheduled Imodium. Recent stool studies 11/04/2017 negative. Renal ultrasound demonstrated mild left hydronephrosis. Creat significantly improved with IV fluids. Creat 3.67 on admission. Creatinine 0.74 at discharge. Patient will follow with Dr. Pisano in 1 week. 2. Acute pulmonary embolism-CTA of chest demonstrated pulmonary embolism within right middle lobe. Continue Eliquis 10 mg twice daily for 7 days. Stop date 11/20/2017. Patient will then transition to Eliquis 5 mg twice daily. Echocardiogram showed an EF of 65%, stage I diastolic dysfunction. 3. Hyponatremia-secondary to hypovolemia. Resolved with IV fluids. 4. Leukocytosis/lactic acidosis-suspect secondary to hypovolemia. Resolved with IV fluids. 5. Hypertension-stable, continue home regimen. 6. Hyperlipidemia-continue statin. 7. Chronic constipation status post recent ileostomy placement at [facility] Main [facility]. 8. Schizoaffective disorder-continue home medication regimen. 9. Type 2 diabetes mellitus-continue home oral regimen. General: Alert, Oriented x3, Cooperative, No apparent distress HEENT: Atraumatic, PERRLA, EOMI, Normocephalic Neck: Supple, No JVD, Negative Carotid Bruits Lungs: Clear to auscultation, Normal air movement Cardiovascular: Regular rate, Regular Rhythm, Normal S1, Normal S2, No murmurs Abdomen: Bowel Sounds Present, Soft, Non Tender, Non-Distended, - - Ileostomy intact Extremities: No clubbing, No cyanosis, No edema, Capillary Refill Less than 3 Seconds Skin: No rashes, No breakdown Musculoskeletal: No Tenderness to Palpation of Joints or Extremities Neurological: Cranial nerves II-XII grossly intact, Neuro grossly intact Psych/Mental Status: Normal Affect, Appropriate Patient seen exam prior to discharge. Physical assessment as noted above. Patient stable for discharge to SNF with the follow-up recommendations as noted above. This patient was seen by FAUSTINO Ocampo under the supervision of Dr. Schuster. Home Medications: Medications to take at Discharge Atenolol [Tenormin (beta vineet)] 25 mg PO DAILY 02/15/15 Clozapine [Clozaril] 100 mg PO BID 02/15/15 Lisinopril [Zestril] 2.5 mg PO DAILY 02/15/15 Lorazepam [Ativan] 2 mg PO BID 02/15/15 Lovastatin [Mevacor] 20 mg PO QHS 02/15/15 Benztropine [Cogentin] 1 mg PO BID 11/05/17 Sitagliptin Phos/Metformin HCl [Janumet Xr 50-1,000 mg Tablet] 1 tablet PO DAILY #1 tablet 11/07/17 Hydrochlorothiazide 50 mg PO DAILY 11/13/17 Magnesium Oxide [Magnesium] 500 mg PO DAILY 11/13/17 Montelukast [Singulair] 10 mg PO QHS 11/14/17 Perphenazine 8 mg PO 4X/DAY 11/14/17 Apixaban [Eliquis] 10 mg PO BID #60 tab 11/16/17 Loperamide [Imodium] 2 mg PO Q4H #60 cap 11/16/17 Tamsulosin HCl [Flomax] 0.4 mg PO DAILY@0830 #30 cap 11/16/17 Following Prescrptions Were Given to Patient: Loperamide [Imodium] 2 mg PO Q4H #60 cap Tamsulosin HCl [Flomax] 0.4 mg PO DAILY@0830 #30 cap Apixaban [Eliquis] 10 mg PO BID #60 tab Primary Care Physician: Micheal Tejeda MD [Primary Care Provider] - Please follow up with your Primary Care Physician in: 1 Week Please Follow Up With: Duarte Umanzor MD When: 1 Week Disposition: [facility] facility Minutes spent on discharge:: 35 Patient Condition:: Stable Medical Necessity - Tobacco Use Smoking Status: Former smoker Meaningful Use Info Meaningful Use Diagnoses (Choose all that apply): VTE - VTE Anticoag overlap given w/in hospital stay or rx'd at dc?: Yes Pt receive overlap for 5 days?: Yes <Deneen Schuster - Last Filed: 11/17/17 15:49> Discharge Date and Diagnosis - Secondary Discharge Diagnosis Chronic Problems S/P ileostomy (Chronic) HTN (hypertension) (Chronic) Diabetes mellitus (Chronic) HLD (hyperlipidemia) (Chronic) Schizoaffective disorder (Chronic) Nicotine abuse (Chronic) Hospital Course and Treatment Consultations 11/14/17 17:26 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
--- NOTE | 2017-11-16 13:04 | DS.PCM_ITS ---
<Katy Ocampo - Last Filed: 11/17/17 15:41> Discharge Date and Diagnosis Date of Admission: 11/13/17 Date of Discharge: 11/16/17 - Primary Discharge Diagnosis Active and Suspected Problems 1. Acute kidney injury secondary to high output from ileostomy and urinary retention 2. Acute pulmonary embolism 3. Hyponatremia-resolved. 4. Leukocytosis/lactic acidosis,secondary to hypovolemia-resolved with IV fluids. - Secondary Discharge Diagnosis Chronic Problems S/P ileostomy (Chronic) HTN (hypertension) (Chronic) Diabetes mellitus (Chronic) HLD (hyperlipidemia) (Chronic) Schizoaffective disorder (Chronic) Nicotine abuse (Chronic) Hospital Course and Treatment Imaging Results: Diagnostic Data Chest CTA 11/13/17 18:09 IMPRESSION: Pulmonary embolus within a right middle lobe subsegmental pulmonary artery. Atherosclerosis. Cholelithiasis. N.B. : The above information has been verbally conveyed by Milagros Dasilva MD to Dr lawson , Referring Physician, on 11/13/2017 18:58:56 (ET). Electronically Signed: Milagros Dasilva MD at 18:52 EDT Tel , Service support , Chest X-Ray 11/13/17 19:22 IMPRESSION: No acute cardiopulmonary process. Electronically Signed: Milagros Dasilva MD at 20:36 EDT Tel , Service support , Renal Ultrasound 11/14/17 16:26 IMPRESSION: Mild left hydronephrosis Electronically Signed: Israel Wilson MD at 12:47 EDT Tel , Service support , Consultations 11/14/17 17:26 Consult: Onc/Wound/office assistance Routine Comment: Reason for Consult:: ILEOSTOMY Dr. Umanzor- Surgery Dr. Richardson- Nephrology Operations: None Procedures: 2-D Echocardiogram Summary of Care Provided: 1. Acute kidney injury-suspect secondary to high output from ileostomy and urinary retention. Moreno catheter placed with immediate return of 1500 cc urine. Patient started on Flomax. Moreno removed prior to discharge and patient voiding without difficulty. Dr. Umanzor consulted for high output ileostomy. Patient was started on Sandostatin 0.1 mg subcu 3 times daily which will further be discontinued at discharge. If liquid stools continue, this may be restarted at that time. Linzess discontinued which is thought to be part of cause for diarrhea. Continue scheduled Imodium. Recent stool studies 2017 negative. Renal ultrasound demonstrated mild left hydronephrosis. Creat significantly improved with IV fluids. Creat 3.67 on admission. Creatinine 0.74 at discharge. Patient will follow with Dr. Pisano in 1 week. 2. Acute pulmonary embolism-CTA of chest demonstrated pulmonary embolism within right middle lobe. Continue Eliquis 10 mg twice daily for 7 days. Stop date 11/20/2017. Patient will then transition to Eliquis 5 mg twice daily. Echocardiogram showed an EF of 65%, stage I diastolic dysfunction. 3. Hyponatremia-secondary to hypovolemia. Resolved with IV fluids. 4. Leukocytosis/lactic acidosis-suspect secondary to hypovolemia. Resolved with IV fluids. 5. Hypertension-stable, continue home regimen. 6. Hyperlipidemia-continue statin. 7. Chronic constipation status post recent ileostomy placement at [facility] Main [facility]. 8. Schizoaffective disorder-continue home medication regimen. 9. Type 2 diabetes mellitus-continue home oral regimen. General: Alert, Oriented x3, Cooperative, No apparent distress HEENT: Atraumatic, PERRLA, EOMI, Normocephalic Neck: Supple, No JVD, Negative Carotid Bruits Lungs: Clear to auscultation, Normal air movement Cardiovascular: Regular rate, Regular Rhythm, Normal S1, Normal S2, No murmurs Abdomen: Bowel Sounds Present, Soft, Non Tender, Non-Distended, - - Ileostomy intact Extremities: No clubbing, No cyanosis, No edema, Capillary Refill Less than 3 Seconds Skin: No rashes, No breakdown Musculoskeletal: No Tenderness to Palpation of Joints or Extremities Neurological: Cranial nerves II-XII grossly intact, Neuro grossly intact Psych/Mental Status: Normal Affect, Appropriate Patient seen exam prior to discharge. Physical assessment as noted above. Patient stable for discharge to SNF with the follow-up recommendations as noted above. This patient was seen by FAUSTINO Ocampo under the supervision of Dr. Schuster. Home Medications: Medications to take at Discharge Atenolol [Tenormin (beta vineet)] 25 mg PO DAILY 02/15/15 Clozapine [Clozaril] 100 mg PO BID 02/15/15 Lisinopril [Zestril] 2.5 mg PO DAILY 02/15/15 Lorazepam [Ativan] 2 mg PO BID 02/15/15 Lovastatin [Mevacor] 20 mg PO QHS 02/15/15 Benztropine [Cogentin] 1 mg PO BID 11/05/17 Sitagliptin Phos/Metformin HCl [Janumet Xr 50-1,000 mg Tablet] 1 tablet PO DAILY #1 tablet 11/07/17 Hydrochlorothiazide 50 mg PO DAILY 11/13/17 Magnesium Oxide [Magnesium] 500 mg PO DAILY 11/13/17 Montelukast [Singulair] 10 mg PO QHS 11/14/17 Perphenazine 8 mg PO 4X/DAY 11/14/17 Apixaban [Eliquis] 10 mg PO BID #60 tab 11/16/17 Loperamide [Imodium] 2 mg PO Q4H #60 cap 11/16/17 Tamsulosin HCl [Flomax] 0.4 mg PO DAILY@0830 #30 cap 11/16/17 Following Prescrptions Were Given to Patient: Loperamide [Imodium] 2 mg PO Q4H #60 cap Tamsulosin HCl [Flomax] 0.4 mg PO DAILY@0830 #30 cap Apixaban [Eliquis] 10 mg PO BID #60 tab Primary Care Physician: Micheal Tejeda MD [Primary Care Provider] - Please follow up with your Primary Care Physician in: 1 Week Please Follow Up With: Duarte Umanzor MD When: 1 Week Disposition: [facility] facility Minutes spent on discharge:: 35 Patient Condition:: Stable Medical Necessity - Tobacco Use Smoking Status: Former smoker Meaningful Use Info Meaningful Use Diagnoses (Choose all that apply): VTE - VTE Anticoag overlap given w/in hospital stay or rx'd at dc?: Yes Pt receive overlap for 5 days?: Yes <Deneen Schuster - Last Filed: 11/17/17 15:49> Discharge Date and Diagnosis - Secondary Discharge Diagnosis Chronic Problems S/P ileostomy (Chronic) HTN (hypertension) (Chronic) Diabetes mellitus (Chronic) HLD (hyperlipidemia) (Chronic) Schizoaffective disorder (Chronic) Nicotine abuse (Chronic) Hospital Course and Treatment Consultations 11/14/17 17:26 Consult: Onc/Wound/office assistance Routine Comment: Reason for Consult:: ILEOSTOMY Summary of Care Provided: The patient is a 57 year old M [] Code Visit Inpatient E&M: 34803 Disch Hosp
--- NOTE | 2017-11-16 13:10 | DCINST_ITS ---
You will use the following diet at home:: Calorie/Carbohydrate Controlled ( specify 1200, 1400, etc) Discharge Activity: Return to Normal Activity Call your doctor if you observe: Inability to urinate, Shortness of breath, Dizziness, Fainting spells, Chest pain Allergies/Adverse Reactions: Allergies No Known Allergies Allergy (Verified 11/13/17 18:10) Medications to take at Discharge Atenolol [Tenormin (beta vineet)] 25 mg PO DAILY 02/15/15 Clozapine [Clozaril] 100 mg PO BID 02/15/15 Lisinopril [Zestril] 2.5 mg PO DAILY 02/15/15 Lorazepam [Ativan] 2 mg PO BID 02/15/15 Lovastatin [Mevacor] 20 mg PO QHS 02/15/15 Linaclotide [Linzess] 290 mcg PO DAILY 11/04/17 Benztropine [Cogentin] 1 mg PO BID 11/05/17 Sitagliptin Phos/Metformin HCl [Janumet Xr 50-1,000 mg Tablet] 1 tablet PO DAILY #1 tablet 11/07/17 Hydrochlorothiazide 50 mg PO DAILY 11/13/17 Magnesium Oxide [Magnesium] 500 mg PO DAILY 11/13/17 Montelukast [Singulair] 10 mg PO QHS 11/14/17 Perphenazine 8 mg PO 4X/DAY 11/14/17 Apixaban [Eliquis] 10 mg PO BID #60 tab 11/16/17 Loperamide [Imodium] 2 mg PO Q4H #60 cap 11/16/17 Tamsulosin HCl [Flomax] 0.4 mg PO DAILY@0830 #30 cap 11/16/17 The following prescriptions were given: Loperamide [Imodium] 2 mg PO Q4H #60 cap Tamsulosin HCl [Flomax] 0.4 mg PO DAILY@0830 #30 cap Apixaban [Eliquis] 10 mg PO BID #60 tab Primary Care Physician: Micheal Tejeda MD [Primary Care Provider] - Please follow up with your Primary Care Physician in: 1 Week Test Results: Test results from this visit will be discussed in further detail at your follow- up appointment, if applicable. Proposed Discharge Date: 11/16/17
--- NOTE | 2017-11-16 14:26 | PCM.PROGNOTE ---
<Katy Ocampo - Last Filed: 11/16/17 14:30> Subjective: Patient seen and examined. Feels improved. Ostomy output has slowed down and stool is less watery. Patient denies other current complaints. Wishes to be discharged to assisted living facility. Patient states his step father is not ready to have him at home. - Physical Exam General: Alert, Oriented x3, Cooperative HEENT: Atraumatic, PERRLA, EOMI, Normocephalic Neck: Supple, No JVD, Negative Carotid Bruits Lungs: Clear to auscultation, Normal air movement Cardiovascular: Regular rate, Regular Rhythm, Normal S1, Normal S2, No murmurs Abdomen: Bowel Sounds Present, Soft, Non Tender, Non-Distended, - - Ileostomy intact Extremities: No clubbing, No cyanosis, No edema, Capillary Refill Less than 3 Seconds Skin: No rashes, No breakdown Musculoskeletal: No Tenderness to Palpation of Joints or Extremities Neurological: Cranial nerves II-XII grossly intact, Neuro grossly intact Psych/Mental Status: Normal Affect, Appropriate Vital Signs Temp Pulse Resp BP Pulse Ox 97.8 F 76 18 129/78 H 98 11/16/17 09:12 11/16/17 11:00 11/16/17 09:12 11/16/17 09:12 11/16/17 09:12 Oxygen Delivery Method Room Air Weight: 200 lb 9.93 oz Body Mass Index (BMI) 26.4 Orthostatic Vital Signs Start: 11/14/17 12:29 Freq: PRN Status: Active Protocol: Activity Type Activity Date Activity User E-Sign Co-Sign Detail Recorded Client Recorded Date Recorded By Document 11/14/17 12:29 MLB [id number] 11/14/17 12:30 MLB 11/14/17 12:29 Orthostatic Vitals Standing -Blood Pressure (90/60-120/80) 114/70 -Extremity Use Left Arm -Pulse Rate (60-100) 117 H Sitting -Blood Pressure (90/60-120/80) 105/64 -Extremity Use Left Arm -Pulse Rate (60-100) 118 H Lying -Blood Pressure (90/60-120/80) 113/58 L -Extremity Use Left Arm -Pulse Rate (60-100) 71 Intake and Output for Last 24 Hours 11/14/17 11/15/17 11/16/17 23:59 23:59 23:59 Intake Total 4329 / 4329 6042 / 6042 2369 / 2369 Output Total 3950 / 3950 8225 / 8225 2200 / 2200 Balance 379 / 379 -2183 / -2183 169 / 169 Laboratory Tests Past 24 Hrs 11/16/17 11/16/17 05:45 05:45 WBC 12.5 H RBC 4.47 L Hgb 13.2 Hct 36.5 L MCV 81.7 MCH 29.5 MCHC 36.2 H RDW 13.2 RDW Differential 38.6 Plt Count 283 MPV 10.4 Immature Gran % (Auto) 0.200 Neut % (Auto) 74.5 H Lymph % (Auto) 12.2 L Harnett % (Auto) 11.1 H Eos % (Auto) 1.8 Baso % (Auto) 0.2 Absolute Neuts (auto) 9.3 H Absolute Lymphs (auto) 1.52 Total Counted Not Reportable Sodium 139 Potassium 3.7 Chloride 113 H Carbon Dioxide 19.0 L Anion Gap 7 BUN 25 H Creatinine 0.94 Estim Creat Clear Calc 100.35 Est GFR (MDRD) Af Amer 107 Est GFR (MDRD) Non-Af 88 BUN/Creatinine Ratio 26.5 H Glucose 131 H Calcium 7.6 L Total Bilirubin 1.10 H AST 24 ALT 82 H Alkaline Phosphatase 69 Total Protein 6.2 L Albumin 3.1 L Globulin 3.1 Albumin/Globulin Ratio 1.0 POC Glucose 11/16/17 11/16/17 11/15/17 11:18 06:39 20:50 POC Glucose 206 H 142 H 124 H 11/15/17 16:06 POC Glucose 179 H Medical Necessity - Tobacco Use Smoking Status: Former smoker Assessment/Plan All Active Problems Pulmonary embolism (Acute) ARF (acute renal failure) (Acute) 1. Acute kidney injury-suspect secondary to high output from ileostomy and urinary retention. Continue IV fluids. Moreno catheter placed with immediate return of 1500 cc urine. Patient started on Flomax. Discontinue Moreno. Dr. Umanzor consulted for high output ileostomy. Patient was started on Sandostatin 0.1 mg subcu 3 times daily. Discontinue home Linzess regimen. Scheduled Imodium. Recent stool studies 11/04/2017 negative. Strict I&O. Renal ultrasound demonstrated mild left hydronephrosis. Creat significantly improved with IV fluids. Creat 3.67 on admission. Creatinine today 0.94. SNF pending pre-CERT. Patient and family report difficulty providing proper care at home. 2. Acute pulmonary embolism-CTA of chest demonstrated pulmonary embolism within right middle lobe. Continue Eliquis 10 mg twice daily for 7 days. Stop date 11/20/2017. Patient will then transition to Eliquis 5 mg twice daily. Echocardiogram showed an EF of 65%, stage I diastolic dysfunction. 3. Hyponatremia-secondary to hypovolemia. Resolved with IV fluids. 4. Leukocytosis/lactic acidosis-suspect secondary to hypovolemia. Improved with IV fluids. 5. Hypertension-stable, continue to monitor. Hold lisinopril secondary to #1. 6. Hyperlipidemia-continue statin. 7. Chronic constipation status post recent ileostomy placement at [facility] [place]. 8. Schizoaffective disorder-continue home medication regimen. 9. Type 2 diabetes addambuj-Fjec-Svrun before meals at bedtime with sliding scale insulin. DVT prophylaxis-Eliquis This patient was seen by FAUSTINO Ocampo under the supervision of Dr. Schuster. <Deneen Schuster - Last Filed: 11/17/17 15:16> - Physical Exam Vital Signs Temp Pulse Resp BP Pulse Ox 98.4 F 109 H 18 114/72 100 11/17/17 14:37 11/17/17 14:37 11/17/17 14:37 11/17/17 14:37 11/17/17 14:37 Oxygen Delivery Method Room Air Weight: 91 kg Body Mass Index (BMI) 26.4 Orthostatic Vital Signs Start: 11/14/17 12:29 Freq: PRN Status: Active Protocol: Activity Type Activity Date Activity User E-Sign Co-Sign Detail Recorded Client Recorded Date Recorded By Document 11/14/17 12:29 MLB [id number] 11/14/17 12:30 MLB 11/14/17 12:29 Orthostatic Vitals Standing -Blood Pressure (90/60-120/80) 114/70 -Extremity Use Left Arm -Pulse Rate (60-100) 117 H Sitting -Blood Pressure (90/60-120/80) 105/64 -Extremity Use Left Arm -Pulse Rate (60-100) 118 H Lying -Blood Pressure (90/60-120/80) 113/58 L -Extremity Use Left Arm -Pulse Rate (60-100) 71 Intake and Output for Last 24 Hours 11/15/17 11/16/17 11/17/17 23:59 23:59 23:59 Intake Total 6042 / 6042 4577 / 4577 2651 / 2651 Output Total 8225 / 8225 3000 / 3000 1375 / 1375 Balance -2183 / -2183 1577 / 1577 1276 / 1276 Laboratory Tests Past 24 Hrs 11/17/17 04:58 Sodium 144 Potassium 4.0 Chloride 118 H Carbon Dioxide 18.0 L Anion Gap 8 BUN 16 Creatinine 0.74 Estim Creat Clear Calc 127.47 Est GFR (MDRD) Af Amer 142 Est GFR (MDRD) Non-Af 117 BUN/Creatinine Ratio 21.8 H Glucose 131 H Calcium 7.7 L Total Bilirubin 0.90 AST 19 ALT 64 H Alkaline Phosphatase 60 Total Protein 5.6 L Albumin 2.8 L Globulin 2.8 Albumin/Globulin Ratio 1.0 POC Glucose 11/17/17 11/17/17 11/16/17 11:00 06:46 21:14 POC Glucose 155 H 142 H 153 H 11/16/17 17:08 POC Glucose 138 H Assessment/Plan Patient seen and examined. Agree with interval history and physical exam as documented by nurse practitioner Katy Ocampo. Patient feels well, stools not getting formed. Brownish in color, no more greenish. Denies any fever or chills. Labs show improvement. Physical exam is unchanged Meds reviewed - on Eliquis, Linzess held, continue Imodium and other meds for schizoffective disorder. Code Visit Inpatient E&M: 78732 Subs Hosp L2
--- NOTE | 2017-11-16 14:30 | PN_ITS ---
<Katy Ocampo - Last Filed: 11/16/17 14:30> Subjective: Patient seen and examined. Feels improved. Ostomy output has slowed down and stool is less watery. Patient denies other current complaints. Wishes to be discharged to assisted living facility. Patient states his step father is not ready to have him at home. - Physical Exam General: Alert, Oriented x3, Cooperative HEENT: Atraumatic, PERRLA, EOMI, Normocephalic Neck: Supple, No JVD, Negative Carotid Bruits Lungs: Clear to auscultation, Normal air movement Cardiovascular: Regular rate, Regular Rhythm, Normal S1, Normal S2, No murmurs Abdomen: Bowel Sounds Present, Soft, Non Tender, Non-Distended, - - Ileostomy intact Extremities: No clubbing, No cyanosis, No edema, Capillary Refill Less than 3 Seconds Skin: No rashes, No breakdown Musculoskeletal: No Tenderness to Palpation of Joints or Extremities Neurological: Cranial nerves II-XII grossly intact, Neuro grossly intact Psych/Mental Status: Normal Affect, Appropriate Vital Signs Temp Pulse Resp BP Pulse Ox 97.8 F 76 18 129/78 H 98 11/16/17 09:12 11/16/17 11:00 11/16/17 09:12 11/16/17 09:12 11/16/17 09:12 Oxygen Delivery Method Room Air Weight: 200 lb 9.93 oz Body Mass Index (BMI) 26.4 Orthostatic Vital Signs Start: 11/14/17 12:29 Freq: PRN Status: Active Protocol: Activity Type Activity Date Activity User E-Sign Co-Sign Detail Recorded Client Recorded Date Recorded By Document 11/14/17 12:29 MLB [id number] 11/14/17 12:30 MLB 11/14/17 12:29 Orthostatic Vitals Standing -Blood Pressure (90/60-120/80) 114/70 -Extremity Use Left Arm -Pulse Rate (60-100) 117 H Sitting -Blood Pressure (90/60-120/80) 105/64 -Extremity Use Left Arm -Pulse Rate (60-100) 118 H Lying -Blood Pressure (90/60-120/80) 113/58 L -Extremity Use Left Arm -Pulse Rate (60-100) 71 Intake and Output for Last 24 Hours 11/14/17 11/15/17 11/16/17 23:59 23:59 23:59 Intake Total 4329 / 4329 6042 / 6042 2369 / 2369 Output Total 3950 / 3950 8225 / 8225 2200 / 2200 Balance 379 / 379 -2183 / -2183 169 / 169 Laboratory Tests Past 24 Hrs 11/16/17 11/16/17 05:45 05:45 WBC 12.5 H RBC 4.47 L Hgb 13.2 Hct 36.5 L MCV 81.7 MCH 29.5 MCHC 36.2 H RDW 13.2 RDW Differential 38.6 Plt Count 283 MPV 10.4 Immature Gran % (Auto) 0.200 Neut % (Auto) 74.5 H Lymph % (Auto) 12.2 L Long % (Auto) 11.1 H Eos % (Auto) 1.8 Baso % (Auto) 0.2 Absolute Neuts (auto) 9.3 H Absolute Lymphs (auto) 1.52 Total Counted Not Reportable Sodium 139 Potassium 3.7 Chloride 113 H Carbon Dioxide 19.0 L Anion Gap 7 BUN 25 H Creatinine 0.94 Estim Creat Clear Calc 100.35 Est GFR (MDRD) Af Amer 107 Est GFR (MDRD) Non-Af 88 BUN/Creatinine Ratio 26.5 H Glucose 131 H Calcium 7.6 L Total Bilirubin 1.10 H AST 24 ALT 82 H Alkaline Phosphatase 69 Total Protein 6.2 L Albumin 3.1 L Globulin 3.1 Albumin/Globulin Ratio 1.0 POC Glucose 11/16/17 11/16/17 11/15/17 11:18 06:39 20:50 POC Glucose 206 H 142 H 124 H 11/15/17 16:06 POC Glucose 179 H Medical Necessity - Tobacco Use Smoking Status: Former smoker Assessment/Plan All Active Problems Pulmonary embolism (Acute) ARF (acute renal failure) (Acute) 1. Acute kidney injury-suspect secondary to high output from ileostomy and urinary retention. Continue IV fluids. Moreno catheter placed with immediate return of 1500 cc urine. Patient started on Flomax. Discontinue Moreno. Dr. Umanzor consulted for high output ileostomy. Patient was started on Sandostatin 0.1 mg subcu 3 times daily. Discontinue home Linzess regimen. Scheduled Imodium. Recent stool studies 11/04/2017 negative. Strict I&O. Renal ultrasound demonstrated mild left hydronephrosis. Creat significantly improved with IV fluids. Creat 3.67 on admission. Creatinine today 0.94. SNF pending pre-CERT. Patient and family report difficulty providing proper care at home. 2. Acute pulmonary embolism-CTA of chest demonstrated pulmonary embolism within right middle lobe. Continue Eliquis 10 mg twice daily for 7 days. Stop date 11/20/2017. Patient will then transition to Eliquis 5 mg twice daily. Echocardiogram showed an EF of 65%, stage I diastolic dysfunction. 3. Hyponatremia-secondary to hypovolemia. Resolved with IV fluids. 4. Leukocytosis/lactic acidosis-suspect secondary to hypovolemia. Improved with IV fluids. 5. Hypertension-stable, continue to monitor. Hold lisinopril secondary to #1. 6. Hyperlipidemia-continue statin. 7. Chronic constipation status post recent ileostomy placement at [facility]. 8. Schizoaffective disorder-continue home medication regimen. 9. Type 2 diabetes ilyljyxw-Lugv-Lwaxi before meals at bedtime with sliding scale insulin. DVT prophylaxis-Eliquis This patient was seen by FAUSTINO Ocampo under the supervision of Dr. Schuster. <Deneen Schuster - Last Filed: 11/17/17 15:16> - Physical Exam Vital Signs Temp Pulse Resp BP Pulse Ox 98.4 F 109 H 18 114/72 100 11/17/17 14:37 11/17/17 14:37 11/17/17 14:37 11/17/17 14:37 11/17/17 14:37 Oxygen Delivery Method Room Air Weight: 91 kg Body Mass Index (BMI) 26.4 Orthostatic Vital Signs Start: 11/14/17 12:29 Freq: PRN Status: Active Protocol: Activity Type Activity Date Activity User E-Sign Co-Sign Detail Recorded Client Recorded Date Recorded By Document 11/14/17 12:29 MLB [id number] 11/14/17 12:30 MLB 11/14/17 12:29 Orthostatic Vitals Standing -Blood Pressure (90/60-120/80) 114/70 -Extremity Use Left Arm -Pulse Rate (60-100) 117 H Sitting -Blood Pressure (90/60-120/80) 105/64 -Extremity Use Left Arm -Pulse Rate (60-100) 118 H Lying -Blood Pressure (90/60-120/80) 113/58 L -Extremity Use Left Arm -Pulse Rate (60-100) 71 Intake and Output for Last 24 Hours 11/15/17 11/16/17 11/17/17 23:59 23:59 23:59 Intake Total 6042 / 6042 4577 / 4577 2651 / 2651 Output Total 8225 / 8225 3000 / 3000 1375 / 1375 Balance -2183 / -2183 1577 / 1577 1276 / 1276 Laboratory Tests Past 24 Hrs 11/17/17 04:58 Sodium 144 Potassium 4.0 Chloride 118 H Carbon Dioxide 18.0 L Anion Gap 8 BUN 16 Creatinine 0.74 Estim Creat Clear Calc 127.47 Est GFR (MDRD) Af Amer 142 Est GFR (MDRD) Non-Af 117 BUN/Creatinine Ratio 21.8 H Glucose 131 H Calcium 7.7 L Total Bilirubin 0.90 AST 19 ALT 64 H Alkaline Phosphatase 60 Total Protein 5.6 L Albumin 2.8 L Globulin 2.8 Albumin/Globulin Ratio 1.0 POC Glucose 11/17/17 11/17/17 11/16/17 11:00 06:46 21:14 POC Glucose 155 H 142 H 153 H 11/16/17 17:08 POC Glucose 138 H Assessment/Plan Patient seen and examined. Agree with interval history and physical exam as documented by nurse practitioner Katy Ocampo. Patient feels well, stools not getting formed. Brownish in color, no more greenish. Denies any fever or chills. Labs show improvement. Physical exam is unchanged Meds reviewed - on Eliquis, Linzess held, continue Imodium and other meds for schizoffective disorder. Code Visit Inpatient E&M: 64586 Subs Hosp L2
--- NOTE | 2017-11-16 14:30 | CASEMGMT ---
SW spoke with patient about fdc. He said he would like to go to a fdc and he did not care where as long as it is in [place]. SW explained to him that insurance may not approve him to go to a fdc due to him doing so well with therapy. SW told him we can try in the hopes that they will see he needs assistance with his ileostomy. He said it was ok for SW to call his mom. SW called his mom and left her a voice mail letting her know SW is going to try getting patient to a fdc, but it may get denied. SW told her patient didn't care as long as it is in [place]. SW told her SW will make a referral to [facility] and [facility]. SW called [facility] and left a message with referral as well as faxed referral. SW also called [facility] and faxed referral. OG called [facility] and they might have a male bed, but she is not sure as the admissions person left for the day. The other 2 facilities in [place] ([facility] and [facility] are full). Plan: try for SNF if insurance approves. Waiting on return calls from [facility] and [facility]. Bonita PEMBERTON MSW
--- NOTE | 2017-11-16 15:18 | CASEMGMT ---
Per Jaime CLAY TRANSPORTER-C, pt to be sent home on [facility] and script e-scribed to [facility]. Per tech at [facility], [facility] is covered and there is no co-pay for med at this time. Yumi ANGEL CM
--- NOTE | 2017-11-16 15:57 | CASEMGMT ---
OG received call from Lanie at [facility]. They will take patient at d/c. She will try for pre-cert. Plan: [facility] pending insurance approval. Bonita SPANN
[2017-11-16 17:16] LABS: Bedside Glucose 138 mg/dL (70-110)
[2017-11-16] MEDS: Atorvastatin Calcium 10 MG Tablet 5 MG PO (21:17)
[2017-11-16 23:21] LABS: Bedside Glucose 153 mg/dL (70-110)
[2017-11-17] MEDS: 0.9% Normal Saline 1,000 ML 150 ML IV ×2 (00:17→07:35)
[2017-11-17] MEDS: Loperamide 2 MG Capsule PO ×5 (01:26→17:05)
[2017-11-17 03:06] VITALS: PULSE 76
[2017-11-17 03:35] VITALS: BP 124/67; PULSE 71; RESP 20; TEMP 37; O2SAT 97
[2017-11-17] MEDS: Octreotide 0.1 MG/ML ML SC ×2 (05:50→14:44)
[2017-11-17 05:56] LABS: AST(SGOT) 19 U/L (15-37); Alanine Aminotransfer ALT/SGPT 64 U/L (16-61); Albumin, Serum 2.8 g/dL (3.2-5.0); Alkaline Phosphatase 60 U/L (45-117); Anion Gap 8 (5-15); BUN 16 mg/dL (7-18); BUN/Creat Ratio 21.8 RATIO (10-20); Calcium,Total 7.7 mg/dL (8.5-10.1); Chloride 118 mmol/L (98-107); Creatinine, Serum 0.74 mg/dL (0.70-1.30); EST Glomerular Filtration Rate 117 mL/min (>60); Est Glom Filt Rate - Afr Amer 142 mL/min (>60); Estimated Creatinine Clearance 127.47 ml/min; Globulin 2.8 g/dL (2.2-4.2); Glucose 131 mg/dL (74-106); Protein, Total 5.6 g/dL (6.4-8.2); Sodium Level 144 mmol/L (136-145)
[2017-11-17 07:01] LABS: Bedside Glucose 142 mg/dL (70-110)
[2017-11-17] MEDS: Tamsulosin HCl 0.4 MG Capsule PO (08:37)
[2017-11-17] MEDS: Benztropine 2 MG Tablet 1 MG PO (08:38)
[2017-11-17] MEDS: APIXABAN 5 MG TABLET 10 MG PO (08:39)
[2017-11-17] MEDS: PERPHENAZINE 8 MG TABLET PO ×3 (08:40→17:05)
[2017-11-17] MEDS: Pantoprazole Sodium 40 MG Tablet PO (08:40)
[2017-11-17] MEDS: Psyllium 1 PACKET PO (08:40)
[2017-11-17] MEDS: Montelukast 10 MG Tablet PO (08:41)
[2017-11-17 08:47] VITALS: BP 120/60; PULSE 108; RESP 18; TEMP 36.6; O2SAT 100
[2017-11-17 11:11] LABS: Bedside Glucose 155 mg/dL (70-110)
--- NOTE | 2017-11-17 11:21 | CASEMGMT ---
OG spoke with patient's [facility] Correctional Therapy Teacher, Hipolito. She wanted to know about patient's d/c plan. OG told her we are trying to get him into a senior living for extended education on his ileostomy. OG explained he was in the hospital recently and had issues caring for it and then back in now and is still having trouble. OG told her that he was interested in assisted living. OG told him he would have to do an AL waiver assessment with his continuous pillowcase cutter. She said she was just out at their house last week. She offered to complete the waiver program application, but he declined. She has an appt with him for Wednesday at 11:30. OG told her SW will let her know where he is going to be once we know. Await pre-cert for [facility]. Bonita SPANN
--- NOTE | 2017-11-17 11:54 | CASEMGMT ---
SW received a voice mail from patient's mom inquiring status. SW called her back and let her know patient will stay in [facility] until we get an answer from insurance. OG told her SW cannot promise insurance will approve him and if he gets denied he will go home with home health. OG also told her SW spoke with his case supervisor, Hipolito and she is going to complete the AL waiver assessment with patient. She said that would be great. OG told her SW will let her know as soon as OG hears from [facility]. Bonita PEMBERTON MSW
[2017-11-17 12:00] VITALS: PULSE 85
--- NOTE | 2017-11-17 12:00 | NURSING ---
Ostomy appliance remains intact. no signs of leak. stool is a soft light brown. pt denies needs at this time.
[2017-11-17] MEDS: Insulin Lispro 100 UNIT/ML INSULN.PEN SC ×2 (12:19→17:03)
--- NOTE | 2017-11-17 13:25 | PCM.PN.SRG ---
Subjective: no complaints - Physical Exam General: Alert, Cooperative Abdomen: Bowel Sounds Present, Soft, Non Tender, - - sdtoma output much more solid Vital Signs Temp Pulse Resp BP Pulse Ox 97.8 F 85 18 120/60 100 11/17/17 08:47 11/17/17 12:00 11/17/17 08:47 11/17/17 08:47 11/17/17 08:47 Oxygen Delivery Method Room Air Weight: 91 kg Body Mass Index (BMI) 26.4 Orthostatic Vital Signs Start: 11/14/17 12:29 Freq: PRN Status: Active Protocol: Activity Type Activity Date Activity User E-Sign Co-Sign Detail Recorded Client Recorded Date Recorded By Document 11/14/17 12:29 MLB [id number] 11/14/17 12:30 MLB 11/14/17 12:29 Orthostatic Vitals Standing -Blood Pressure (90/60-120/80) 114/70 -Extremity Use Left Arm -Pulse Rate (60-100) 117 H Sitting -Blood Pressure (90/60-120/80) 105/64 -Extremity Use Left Arm -Pulse Rate (60-100) 118 H Lying -Blood Pressure (90/60-120/80) 113/58 L -Extremity Use Left Arm -Pulse Rate (60-100) 71 Intake and Output for Last 24 Hours 11/15/17 11/16/17 11/17/17 23:59 23:59 23:59 Intake Total 6042 / 6042 4577 / 4577 2651 / 2651 Output Total 8225 / 8225 3000 / 3000 1375 / 1375 Balance -2183 / -2183 1577 / 1577 1276 / 1276 Laboratory Tests Past 24 Hrs 11/17/17 04:58 Sodium 144 Potassium 4.0 Chloride 118 H Carbon Dioxide 18.0 L Anion Gap 8 BUN 16 Creatinine 0.74 Estim Creat Clear Calc 127.47 Est GFR (MDRD) Af Amer 142 Est GFR (MDRD) Non-Af 117 BUN/Creatinine Ratio 21.8 H Glucose 131 H Calcium 7.7 L Total Bilirubin 0.90 AST 19 ALT 64 H Alkaline Phosphatase 60 Total Protein 5.6 L Albumin 2.8 L Globulin 2.8 Albumin/Globulin Ratio 1.0 POC Glucose 11/17/17 11/17/17 11/16/17 11:00 06:46 21:14 POC Glucose 155 H 142 H 153 H 11/16/17 17:08 POC Glucose 138 H Medical Necessity - Tobacco Use Smoking Status: Former smoker Assessment/Plan All Active Problems SIRS (systemic inflammatory response syndrome) (Acute) LUIS ANTONIO (acute kidney injury) (Acute) ARF (acute renal failure) (Acute) High stoma output, dehydration, PE on CT scan, likely dehydration from high stoma output, history of chronic constipation, shortness of breath, PE, history of schizoaffective disorder I would monitor strict ins and outs to assess the total ileostomy output. IV hydration to prevent extending acute renal injury secondary to dehydration and IV contrast load. Orally - would try to limit total oral liquid intake and try to minimize osmotically active liquids - would try to hold glucerna/ensure for now. Try smaller solid meals, fiber supplements. will add somatostatin and lomotil or immodium. Much less output now that linzess has been stopped. OK for discharge from my standpoint, but still concerned about ability to care for stoma at home.
--- NOTE | 2017-11-17 13:33 | PCM.PROGNOTE ---
<Katy Ocampo - Last Filed: 11/17/17 13:38> Subjective: Patient seen and examined. Ostomy output continues to be more solid. Patient denies current complaints. Pending pre-CERT. - Physical Exam General: Alert, Oriented x3, Cooperative, No apparent distress HEENT: Atraumatic, PERRLA, EOMI, Normocephalic Neck: Supple, No JVD, Negative Carotid Bruits Lungs: Clear to auscultation, Normal air movement Cardiovascular: Regular rate, Regular Rhythm, Normal S1, Normal S2, No murmurs Abdomen: Bowel Sounds Present, Soft, Non Tender, Non-Distended, - - Ileostomy intact Extremities: No clubbing, No cyanosis, No edema, Capillary Refill Less than 3 Seconds Skin: No rashes, No breakdown Musculoskeletal: No Tenderness to Palpation of Joints or Extremities Neurological: Cranial nerves II-XII grossly intact, Neuro grossly intact Psych/Mental Status: Normal Affect, Appropriate Vital Signs Temp Pulse Resp BP Pulse Ox 97.8 F 85 18 120/60 100 11/17/17 08:47 11/17/17 12:00 11/17/17 08:47 11/17/17 08:47 11/17/17 08:47 Oxygen Delivery Method Room Air Weight: 200 lb 9.93 oz Body Mass Index (BMI) 26.4 Orthostatic Vital Signs Start: 11/14/17 12:29 Freq: PRN Status: Active Protocol: Activity Type Activity Date Activity User E-Sign Co-Sign Detail Recorded Client Recorded Date Recorded By Document 11/14/17 12:29 MLB [id number] 11/14/17 12:30 MLB 11/14/17 12:29 Orthostatic Vitals Standing -Blood Pressure (90/60-120/80) 114/70 -Extremity Use Left Arm -Pulse Rate (60-100) 117 H Sitting -Blood Pressure (90/60-120/80) 105/64 -Extremity Use Left Arm -Pulse Rate (60-100) 118 H Lying -Blood Pressure (90/60-120/80) 113/58 L -Extremity Use Left Arm -Pulse Rate (60-100) 71 Intake and Output for Last 24 Hours 11/15/17 11/16/17 11/17/17 23:59 23:59 23:59 Intake Total 6042 / 6042 1657 / 4577 2651 / 2651 Output Total 8225 / 8225 3000 / 3000 1375 / 1375 Balance -2183 / -2183 1577 / 1577 1276 / 1276 Laboratory Tests Past 24 Hrs 11/17/17 04:58 Sodium 144 Potassium 4.0 Chloride 118 H Carbon Dioxide 18.0 L Anion Gap 8 BUN 16 Creatinine 0.74 Estim Creat Clear Calc 127.47 Est GFR (MDRD) Af Amer 142 Est GFR (MDRD) Non-Af 117 BUN/Creatinine Ratio 21.8 H Glucose 131 H Calcium 7.7 L Total Bilirubin 0.90 AST 19 ALT 64 H Alkaline Phosphatase 60 Total Protein 5.6 L Albumin 2.8 L Globulin 2.8 Albumin/Globulin Ratio 1.0 POC Glucose 11/17/17 11/17/17 11/16/17 11:00 06:46 21:14 POC Glucose 155 H 142 H 153 H 11/16/17 17:08 POC Glucose 138 H Medical Necessity - Tobacco Use Smoking Status: Former smoker Assessment/Plan All Active Problems Pulmonary embolism (Acute) ARF (acute renal failure) (Acute) 1. Acute kidney injury-suspect secondary to high output from ileostomy and urinary retention. Continue IV fluids. Moreno catheter placed with immediate return of 1500 cc urine. Patient started on Flomax. Moreno discontinued and patient voiding without difficulty. Dr. Umanzor consulted for high output ileostomy. Patient was started on Sandostatin 0.1 mg subcu 3 times daily. Discontinue home Linzess regimen. Scheduled Imodium. Recent stool studies 11/04/2017 negative. Strict I&O. Renal ultrasound demonstrated mild left hydronephrosis. Creat significantly improved with IV fluids. Creat 3.67 on admission. Creatinine today 0.74. SNF pending pre-CERT. Patient and family report difficulty providing proper care at home. 2. Acute pulmonary embolism-CTA of chest demonstrated pulmonary embolism within right middle lobe. Continue Eliquis 10 mg twice daily for 7 days. Stop date 11/20/2017. Patient will then transition to Eliquis 5 mg twice daily. Echocardiogram showed an EF of 65%, stage I diastolic dysfunction. 3. Hyponatremia-secondary to hypovolemia. Resolved with IV fluids. 4. Leukocytosis/lactic acidosis-suspect secondary to hypovolemia. Improved with IV fluids. 5. Hypertension-stable, continue to monitor. Hold lisinopril secondary to #1. 6. Hyperlipidemia-continue statin. 7. Chronic constipation status post recent ileostomy placement at [facility]. 8. Schizoaffective disorder-continue home medication regimen. 9. Type 2 diabetes [id number] before meals at bedtime with sliding scale insulin. DVT prophylaxis-Eliquis This patient was seen by FAUSTINO Ocampo under the supervision of Dr. Schuster. <Deneen Schuster - Last Filed: 11/17/17 15:26> - Physical Exam Vital Signs Temp Pulse Resp BP Pulse Ox 98.4 F 109 H 18 114/72 100 11/17/17 14:37 11/17/17 14:37 11/17/17 14:37 11/17/17 14:37 11/17/17 14:37 Oxygen Delivery Method Room Air Weight: 91 kg Body Mass Index (BMI) 26.4 Orthostatic Vital Signs Start: 11/14/17 12:29 Freq: PRN Status: Active Protocol: Activity Type Activity Date Activity User E-Sign Co-Sign Detail Recorded Client Recorded Date Recorded By Document 11/14/17 12:29 MLB [id number] 11/14/17 12:30 MLB 11/14/17 12:29 Orthostatic Vitals Standing -Blood Pressure (90/60-120/80) 114/70 -Extremity Use Left Arm -Pulse Rate (60-100) 117 H Sitting -Blood Pressure (90/60-120/80) 105/64 -Extremity Use Left Arm -Pulse Rate (60-100) 118 H Lying -Blood Pressure (90/60-120/80) 113/58 L -Extremity Use Left Arm -Pulse Rate (60-100) 71 Intake and Output for Last 24 Hours 11/15/17 11/16/17 11/17/17 23:59 23:59 23:59 Intake Total 6042 / 6042 4577 / 4577 2651 / 2651 Output Total 8225 / 8225 3000 / 3000 1375 / 1375 Balance -2183 / -2183 1577 / 1577 1276 / 1276 Laboratory Tests Past 24 Hrs 11/17/17 04:58 Sodium 144 Potassium 4.0 Chloride 118 H Carbon Dioxide 18.0 L Anion Gap 8 BUN 16 Creatinine 0.74 Estim Creat Clear Calc 127.47 Est GFR (MDRD) Af Amer 142 Est GFR (MDRD) Non-Af 117 BUN/Creatinine Ratio 21.8 H Glucose 131 H Calcium 7.7 L Total Bilirubin 0.90 AST 19 ALT 64 H Alkaline Phosphatase 60 Total Protein 5.6 L Albumin 2.8 L Globulin 2.8 Albumin/Globulin Ratio 1.0 POC Glucose 11/17/17 11/17/17 11/16/17 11:00 06:46 21:14 POC Glucose 155 H 142 H 153 H 11/16/17 17:08 POC Glucose 138 H Assessment/Plan Patient seen and examined. Feels improved, denies any fever or chills. No acute events overnight. Stools are becoming firmer. Vitals have remained stable. Physical exam is unchanged. LUIS ANTONIO resolved. Insurance approved precert for SNF. Code Visit Inpatient E&M: 93051 Subs Hosp L2
--- NOTE | 2017-11-17 13:38 | PN_ITS ---
<Katy Ocampo - Last Filed: 11/17/17 13:38> Subjective: Patient seen and examined. Ostomy output continues to be more solid. Patient denies current complaints. Pending pre-CERT. - Physical Exam General: Alert, Oriented x3, Cooperative, No apparent distress HEENT: Atraumatic, PERRLA, EOMI, Normocephalic Neck: Supple, No JVD, Negative Carotid Bruits Lungs: Clear to auscultation, Normal air movement Cardiovascular: Regular rate, Regular Rhythm, Normal S1, Normal S2, No murmurs Abdomen: Bowel Sounds Present, Soft, Non Tender, Non-Distended, - - Ileostomy intact Extremities: No clubbing, No cyanosis, No edema, Capillary Refill Less than 3 Seconds Skin: No rashes, No breakdown Musculoskeletal: No Tenderness to Palpation of Joints or Extremities Neurological: Cranial nerves II-XII grossly intact, Neuro grossly intact Psych/Mental Status: Normal Affect, Appropriate Vital Signs Temp Pulse Resp BP Pulse Ox 97.8 F 85 18 120/60 100 11/17/17 08:47 11/17/17 12:00 11/17/17 08:47 11/17/17 08:47 11/17/17 08:47 Oxygen Delivery Method Room Air Weight: 200 lb 9.93 oz Body Mass Index (BMI) 26.4 Orthostatic Vital Signs Start: 11/14/17 12:29 Freq: PRN Status: Active Protocol: Activity Type Activity Date Activity User E-Sign Co-Sign Detail Recorded Client Recorded Date Recorded By Document 11/14/17 12:29 MLB [id number] 11/14/17 12:30 MLB 11/14/17 12:29 Orthostatic Vitals Standing -Blood Pressure (90/60-120/80) 114/70 -Extremity Use Left Arm -Pulse Rate (60-100) 117 H Sitting -Blood Pressure (90/60-120/80) 105/64 -Extremity Use Left Arm -Pulse Rate (60-100) 118 H Lying -Blood Pressure (90/60-120/80) 113/58 L -Extremity Use Left Arm -Pulse Rate (60-100) 71 Intake and Output for Last 24 Hours 11/15/17 11/16/17 11/17/17 23:59 23:59 23:59 Intake Total 6042 / 6042 0597 / 4577 2651 / 2651 Output Total 8225 / 8225 3000 / 3000 1375 / 1375 Balance -2183 / -2183 1577 / 1577 1276 / 1276 Laboratory Tests Past 24 Hrs 11/17/17 04:58 Sodium 144 Potassium 4.0 Chloride 118 H Carbon Dioxide 18.0 L Anion Gap 8 BUN 16 Creatinine 0.74 Estim Creat Clear Calc 127.47 Est GFR (MDRD) Af Amer 142 Est GFR (MDRD) Non-Af 117 BUN/Creatinine Ratio 21.8 H Glucose 131 H Calcium 7.7 L Total Bilirubin 0.90 AST 19 ALT 64 H Alkaline Phosphatase 60 Total Protein 5.6 L Albumin 2.8 L Globulin 2.8 Albumin/Globulin Ratio 1.0 POC Glucose 11/17/17 11/17/17 11/16/17 11:00 06:46 21:14 POC Glucose 155 H 142 H 153 H 11/16/17 17:08 POC Glucose 138 H Medical Necessity - Tobacco Use Smoking Status: Former smoker Assessment/Plan All Active Problems Pulmonary embolism (Acute) ARF (acute renal failure) (Acute) 1. Acute kidney injury-suspect secondary to high output from ileostomy and urinary retention. Continue IV fluids. Moreno catheter placed with immediate return of 1500 cc urine. Patient started on Flomax. Moreno discontinued and patient voiding without difficulty. Dr. Umanzor consulted for high output ileostomy. Patient was started on Sandostatin 0.1 mg subcu 3 times daily. Discontinue home Linzess regimen. Scheduled Imodium. Recent stool studies 2017 negative. Strict I&O. Renal ultrasound demonstrated mild left hydronephrosis. Creat significantly improved with IV fluids. Creat 3.67 on admission. Creatinine today 0.74. SNF pending pre-CERT. Patient and family report difficulty providing proper care at home. 2. Acute pulmonary embolism-CTA of chest demonstrated pulmonary embolism within right middle lobe. Continue Eliquis 10 mg twice daily for 7 days. Stop date 11/20/2017. Patient will then transition to Eliquis 5 mg twice daily. Echocardiogram showed an EF of 65%, stage I diastolic dysfunction. 3. Hyponatremia-secondary to hypovolemia. Resolved with IV fluids. 4. Leukocytosis/lactic acidosis-suspect secondary to hypovolemia. Improved with IV fluids. 5. Hypertension-stable, continue to monitor. Hold lisinopril secondary to #1. 6. Hyperlipidemia-continue statin. 7. Chronic constipation status post recent ileostomy placement at [facility]. 8. Schizoaffective disorder-continue home medication regimen. 9. Type 2 diabetes [id number] before meals at bedtime with sliding scale insulin. DVT prophylaxis-Eliquis This patient was seen by FAUSTINO Ocampo under the supervision of Dr. Schuster. <Deneen Schuster - Last Filed: 11/17/17 15:26> - Physical Exam Vital Signs Temp Pulse Resp BP Pulse Ox 98.4 F 109 H 18 114/72 100 11/17/17 14:37 11/17/17 14:37 11/17/17 14:37 11/17/17 14:37 11/17/17 14:37 Oxygen Delivery Method Room Air Weight: 91 kg Body Mass Index (BMI) 26.4 Orthostatic Vital Signs Start: 11/14/17 12:29 Freq: PRN Status: Active Protocol: Activity Type Activity Date Activity User E-Sign Co-Sign Detail Recorded Client Recorded Date Recorded By Document 11/14/17 12:29 MLB [id number] 11/14/17 12:30 MLB 11/14/17 12:29 Orthostatic Vitals Standing -Blood Pressure (90/60-120/80) 114/70 -Extremity Use Left Arm -Pulse Rate (60-100) 117 H Sitting -Blood Pressure (90/60-120/80) 105/64 -Extremity Use Left Arm -Pulse Rate (60-100) 118 H Lying -Blood Pressure (90/60-120/80) 113/58 L -Extremity Use Left Arm -Pulse Rate (60-100) 71 Intake and Output for Last 24 Hours 11/15/17 11/16/17 11/17/17 23:59 23:59 23:59 Intake Total 6042 / 6042 4577 / 4577 2651 / 2651 Output Total 8225 / 8225 3000 / 3000 1375 / 1375 Balance -2183 / -2183 1577 / 1577 1276 / 1276 Laboratory Tests Past 24 Hrs 11/17/17 04:58 Sodium 144 Potassium 4.0 Chloride 118 H Carbon Dioxide 18.0 L Anion Gap 8 BUN 16 Creatinine 0.74 Estim Creat Clear Calc 127.47 Est GFR (MDRD) Af Amer 142 Est GFR (MDRD) Non-Af 117 BUN/Creatinine Ratio 21.8 H Glucose 131 H Calcium 7.7 L Total Bilirubin 0.90 AST 19 ALT 64 H Alkaline Phosphatase 60 Total Protein 5.6 L Albumin 2.8 L Globulin 2.8 Albumin/Globulin Ratio 1.0 POC Glucose 11/17/17 11/17/17 11/16/17 11:00 06:46 21:14 POC Glucose 155 H 142 H 153 H 11/16/17 17:08 POC Glucose 138 H Assessment/Plan Patient seen and examined. Feels improved, denies any fever or chills. No acute events overnight. Stools are becoming firmer. Vitals have remained stable. Physical exam is unchanged. LUIS ANTONIO resolved. Insurance approved precert for SNF. Code Visit Inpatient E&M: 69705 Subs Hosp L2
[2017-11-17] MEDS: 0.9% Normal Saline 1,000 ML 75 ML IV (14:34)
[2017-11-17 14:37] VITALS: BP 114/72; PULSE 109; RESP 18; TEMP 36.9; O2SAT 100
--- NOTE | 2017-11-17 15:07 | TREXTCA.CO_ITS ---
- Diet 11/13/17 21:27 Diet: Cardiac/Low Cholesterol Food consistency:: Regular Liquid Consistency:: Regular/Thin - Routine Orders/Code Status Routine Lab Work: - - BMP, CBC in 3 days and then Q week. Code Status: Full Code - Suggestions for Active Care Change Position every (hours): 2 Times a day to sit in chair: 3 - Therapies Physical Therapy: Eval and Treat Occupational Therapy: Eval and Treat - Problem/Diagnosis (1) S/P ileostomy Status: Chronic Current Visit: No (2) HTN (hypertension) Status: Chronic Current Visit: No (3) Diabetes mellitus Status: Chronic Current Visit: No (4) HLD (hyperlipidemia) Status: Chronic Current Visit: No (5) Schizoaffective disorder Status: Chronic Current Visit: No (6) Nicotine abuse Status: Chronic Current Visit: No (7) ARF (acute renal failure) Status: Acute Current Visit: Yes (8) Pulmonary embolism Status: Acute Current Visit: Yes - Allergies/Procedures Done in Hospital Allergies/Adverse Reactions: Allergies No Known Allergies Allergy (Verified 11/13/17 18:10) Procedures: 2-D Echocardiogram - Type of Care/Length of Stay Estimated LOS: Convalescent Care Less Than 30 days Type of Care Needed: Skilled Rehab Potential: Good Prognosis: Good - Additional Orders/Day of Discharge H&P will serve as current which was dated: 11/13/17 Day of Discharge: 11/17/17 - Dietary and Speech Recommendations Dietitian Recommendations/Changes: Suggest diet change to carbohydrate- controlled, cardiac, high fiber. - Follow Up Care Primary Care Physician: Micheal Tejeda MD [Primary Care Provider] - Please follow up with your Primary Care Physician in: 1 Week Please Follow Up With: Duarte Umanzor MD When: 1 Week
--- NOTE | 2017-11-17 15:33 | CASEMGMT ---
Patient was approved for [facility]. OG notified patient and his RN. OG called patient's mom letting her know he was approved. They will take him and will pick him up at 6p. OG notified RN, tetryl blender operator, patient, and Lanie at [facility]. Convalescent was completed on . Orders will be faxed once completed. Plan: d/c to [facility] under skilled level of care on a convalescent stay. Family transported him via private vehicle. Bonita PEMBERTON MSW
[2017-11-17 16:35] LABS: Bedside Glucose 170 mg/dL (70-110)
--- NOTE | 2017-11-17 17:00 | NURSING ---
REPORT CALLED TO CASSANDRA @ [facility]
[2017-11-17 17:45] VITALS: BP 114/72; PULSE 109; RESP 18; TEMP 36.9; O2SAT 100
== END 2017-11-17 17:56 | disposition skilled nursing facility (03) | DRG 682 ==
LOC: ED 18:43 → PCU 21:40
PROVIDERS: Admitting Provider Internal Medicine; Emergency Provider Emergency Medicine; Family Provider Family Medicine; PCP Family Medicine; Visit Provider Internal Medicine
DX: N17.9 Acute kidney failure, unspecified (principal); I26.99 Other pulmonary embolism without acute cor pulmonale; E87.1 Hypo-osmolality and hyponatremia; E87.2 Acidosis; I10 Essential (primary) hypertension; E11.9 Type 2 diabetes mellitus without complications; F25.9 Schizoaffective disorder, unspecified; E86.1 Hypovolemia; E78.5 Hyperlipidemia, unspecified; E87.6 Hypokalemia; N13.30 Unspecified hydronephrosis; E86.0 Dehydration; K59.09 Other constipation; Z93.2 Ileostomy status; Z87.891 Personal history of nicotine dependence; Z79.01 Long term (current) use of anticoagulants; Z79.4 Long term (current) use of insulin; Z79.899 Other long term (current) drug therapy
CPT/HCPCS: 36415; 71045; 71275; 76770; 80048; 80053; 81001; 82570; 82962; 83605; 83735; 83880; 84300; 84484; 85025; 85610; 85730; 93005; 93306; 93970; 97110; 97162; 97166; 97530; 97802; 99283; J7030; J7050; Q9957; Q9967; A4216; C8929; J2354

== ENCOUNTER 2017-11-18 15:51 | Outpatient (RCR) | payer MEDICARE, SELFPAY ==
[2017-11-18 17:55] LABS: Absolute Neutrophil Count 11.3 X10^3/uL (2.0-7.7); Basophil# 0.03 X10^3/uL; Basophil% 0.2 % (0-1); Eosinophil# 0.08 X10^3/uL; Eosinophils% 0.5 % (0-5); Hematocrit 38.5 % (40-54); Hemoglobin 13.6 g/dl (13.0-16.5); Lymphocyte % 11.6 % (19-41); Mean Corp Hgb Conc 35.3 g/gl (32-36); Mean Corpuscular Hgb 29.4 pg (27.0-32.0); Mean Corpuscular Volume 83.2 fL (80-94); Mean Platelet Vol. 10.7 fl (6.2-12.0); Monocyte# 1.53 X10^3/uL; Monocyte% 10.4 % (0-10); Neutrophil # 11.33 X10^3/uL (2.7-7.7); Neutrophil % 77.1 % (47-70); Platelet Count 258 K/mm3 (150-450); RBC Distribution Width CV 13.6 % (11.6-14.6); RBC Distribution Width SD 41.1 fl (35.1-43.9); Red Blood Count 4.63 M/mm3 (4.6-6.2); White Blood Count 14.7 K/mm3 (4.4-11.0)
[2017-11-18 18:00] LABS: POSITIVE DIFFERENTIAL YES
[2017-11-18 18:01] LABS: Differential Indicated SCAN CRITERIA MET; POSITIVE COUNT NO; POSITIVE MORPHOLOGY NO
[2017-11-18 18:17] LABS: Platelet Estimate ADEQUATE (ADEQ); Red Cell Morphology NORM C+C NORMAL (NORM C&C)
[2017-11-19 09:36] LABS: Pathologist Review Reviewed
== END 2017-11-18 17:00 ==
LOC: MTLAB 15:51
PROVIDERS: Family Provider Family Medicine; PCP Family Medicine; Visit Provider Psychiatry & Neurology Psychiatry
DX: Z79.899 Other long term (current) drug therapy (principal); F19.10 Other psychoactive substance abuse, uncomplicated; R53.83 Other fatigue
CPT/HCPCS: 36415; 85025

== ENCOUNTER → 2017-12-24 09:37 | Outpatient (CLI) | payer MEDICARE, SELFPAY ==
[2017-12-24 12:10] LABS: Absolute Lymphocyte Count 0.81 X10^3/ul (0.83-4.51); Absolute Neutrophil Count 12.5 X10^3/uL (2.0-7.7); Basophil# 0.02 X10^3/uL; Basophil% 0.1 % (0-1); Eosinophil# 0.02 X10^3/uL; Eosinophils% 0.1 % (0-5); Hematocrit 42.2 % (40-54); Lymphocyte # 0.81 X10^3/ul (4.0); Lymphocyte % 5.6 % (19-41); Mean Corp Hgb Conc 33.2 g/gl (32-36); Mean Corpuscular Hgb 28.2 pg (27.0-32.0); Mean Corpuscular Volume 85.1 fL (80-94); Mean Platelet Vol. 10.8 fl (6.2-12.0); Monocyte# 1.19 X10^3/uL; Monocyte% 8.2 % (0-10); Neutrophil # 12.52 X10^3/uL (2.7-7.7); Neutrophil % 85.9 % (47-70); Platelet Count 162 K/mm3 (150-450); RBC Distribution Width CV 13.5 % (11.6-14.6); RBC Distribution Width SD 41.5 fl (35.1-43.9); Red Blood Count 4.96 M/mm3 (4.6-6.2); White Blood Count 14.6 K/mm3 (4.4-11.0)
[2017-12-24 12:14] LABS: POSITIVE COUNT NO; POSITIVE DIFFERENTIAL NO; POSITIVE MORPHOLOGY NO
== END ==
PROVIDERS: Family Provider Family Medicine; PCP Family Medicine; Visit Provider Psychiatry & Neurology Psychiatry
DX: Z79.899 Other long term (current) drug therapy (principal); F19.10 Other psychoactive substance abuse, uncomplicated; R53.83 Other fatigue
CPT/HCPCS: 36415; 85025

== ENCOUNTER 2017-12-26 21:29 | Inpatient (IN) | payer MEDICARE, SELFPAY ==
[2017-12-26 21:30] VITALS: BP 122/62; PULSE 98; RESP 25; TEMP 37.9; O2SAT 95; BMI 27.3
[2017-12-26 22:16] LABS: Absolute Lymphocyte Count 0.55 X10^3/ul (0.83-4.51); Absolute Neutrophil Count 6.1 X10^3/uL (2.0-7.7); Basophil# 0.01 X10^3/uL; Basophil% 0.1 % (0-1); Hematocrit 35.5 % (40-54); Lymphocyte # 0.55 X10^3/ul (4.0); Lymphocyte % 7.4 % (19-41); Mean Corp Hgb Conc 33.8 g/gl (32-36); Mean Corpuscular Hgb 28.6 pg (27.0-32.0); Mean Corpuscular Volume 84.5 fL (80-94); Mean Platelet Vol. 9.7 fl (6.2-12.0); Monocyte# 0.79 X10^3/uL; Monocyte% 10.7 % (0-10); Neutrophil # 6.06 X10^3/uL (2.7-7.7); Neutrophil % 81.8 % (47-70); Platelet Count 99 K/mm3 (150-450); RBC Distribution Width CV 13.5 % (11.6-14.6); RBC Distribution Width SD 41.3 fl (35.1-43.9); White Blood Count 7.4 K/mm3 (4.4-11.0)
[2017-12-26 22:19] LABS: Differential Indicated SCAN CRITERIA MET; POSITIVE COUNT NO; POSITIVE DIFFERENTIAL YES; POSITIVE MORPHOLOGY NO
[2017-12-26 22:22] LABS: International Normalized Ratio 1.5; Prothrombin Time (Protime)PT. 18.2 SECONDS (11.7-14.9)
[2017-12-26 22:23] LABS: Partial Thromboplast Time 36.5 Seconds (24.1-36.2)
[2017-12-26 22:34] LABS: ALB/GLOB Ratio 0.7 RATIO (0.9-2.4); AST(SGOT) 36 U/L (15-37); Alanine Aminotransfer ALT/SGPT 60 U/L (16-61); Albumin, Serum 2.9 g/dL (3.2-5.0); Alkaline Phosphatase 117 U/L (45-117); Anion Gap 12 (5-15); BUN 23 mg/dL (7-18); BUN/Creat Ratio 14.9 RATIO (10-20); Calcium,Total 8.8 mg/dL (8.5-10.1); Chloride 95 mmol/L (98-107); Creatinine, Serum 1.54 mg/dL (0.70-1.30); EST Glomerular Filtration Rate 50 mL/min (>60); Est Glom Filt Rate - Afr Amer 61 mL/min (>60); Estimated Creatinine Clearance 61.25 ml/min; Globulin 4.4 g/dL (2.2-4.2); Glucose 152 mg/dL (74-106); Potassium 3.6 mmol/L (3.5-5.1); Protein, Total 7.3 g/dL (6.4-8.2); Sodium Level 130 mmol/L (136-145)
[2017-12-26 22:34] LABS: Color, Urine Yellow (Yellow); Glucose, Dipstick Normal (Normal); Ketone-Dipstick 15 mg/dl (Negative); Leukocyte Esterase-Dipstick 500 /ul (Negative); Mucous, Urine 0 SEEN /hpf (<or=2+); Nitrite-Dipstick Negative (Negative); Occult Blood-Urine 250 /ul (Negative); Protein-Dipstick 100 mg/dl (Negative); Squamous Epithelial Cells - UA 0 SEEN /hpf (0-5); Urine Bilirubin Dipstick Negative (Negative); Urine Clarity Cloudy (Clear); Urine Urobilinogen Normal (Normal)
[2017-12-26 22:35] LABS: Lactic Acid 1.6 mmol/L (0.4-2.0)
[2017-12-26 22:38] VITALS: BP 105/78; PULSE 95; RESP 18; TEMP 36.9; O2SAT 97
[2017-12-26 22:41] LABS: Platelet Estimate MOD DEC (ADEQ); Red Cell Morphology NORM C+C NORMAL (NORM C&C)
[2017-12-26 22:51] LABS: Bacteria 4+ /hpf (None Seen); Fine Granular Cast- Urine 0-5 SEEN /lpf (0-5); White Blood Cells >100 SEEN /hpf (0-5)
[2017-12-26 22:54] LABS: Transitional Epithelial - Ur 0-5 SEEN /hpf (0-5)
[2017-12-26 22:55] LABS: Red Blood Cells-Urine 0-5 SEEN /hpf (0-5)
--- NOTE | 2017-12-26 23:03 | PCM.HP.STD ---
Problem List (1) Sepsis Status: Acute Qualifiers: Sepsis type: sepsis due to unspecified organism Qualified Code(s): A41.9 - Sepsis, unspecified organism (2) UTI (urinary tract infection) Status: Acute Qualifiers: Urinary tract infection type: site unspecified (3) LUIS ANTONIO (acute kidney injury) Status: Acute (4) Hyponatremia Status: Acute (5) Pulmonary embolism Status: Chronic Qualifiers: Pulmonary embolism type: other Chronicity: unspecified Acute cor pulmonale presence: without acute cor pulmonale Qualified Code(s): I26.99 - Other pulmonary embolism without acute cor pulmonale (6) S/P ileostomy Status: Chronic (7) HTN (hypertension) Status: Chronic Qualifiers: Hypertension type: essential hypertension Qualified Code(s): I10 - Essential (primary) hypertension (8) Diabetes mellitus Status: Chronic Qualifiers: Diabetes mellitus type: type 2 Diabetes mellitus middle or intermediate school principal insulin use: without middle or intermediate school principal use Diabetes mellitus complication status: with unspecified complications Qualified Code(s): E11.8 - Type 2 diabetes mellitus with unspecified complications (9) HLD (hyperlipidemia) Status: Chronic Qualifiers: Hyperlipidemia type: pure hypercholesterolemia Qualified Code(s): E78.00 - Pure hypercholesterolemia, unspecified; E78.0 - Pure hypercholesterolemia (10) Schizoaffective disorder Status: Chronic Qualifiers: Schizoaffective disorder type: unspecified Qualified Code(s): F25.9 - Schizoaffective disorder, unspecified History of Present Illness Date of Admission: 12/26/17 Chief Complaint: Fatigue, confusion, fever The patient is a 57 y/o M w/ PMHx: Diabetes mellitus type II, HTN, HLD, Tobacco use history, Anxiety and Depression/Schizoaffective disorder, GERD, Recent 11/13/17 admission w/ acute Pulmonary Embolism, s/p colon resection and ileostomy secondary to severe chronic constipation w/ issues ongoing w/ high output w/ dehydration and LUIS ANTONIO who now re-presents from SNF to the [facility] ED on 12/26/17 with history of increased fatigue, lethargy, confusion as well as weakness for the last 48 hours, progressively worsening. Patient upon ED presentation febrile, but family and patient deny fever at facility. He notes attempts to maintain appropriate hydration but from discussion w/ family intake has not been adequate over the last several days. In the ED work-up included T 100.3, heart rate 98, BP 122/62, respiratory rate 25, 95% room air, CBC with WBC 7.4, hemoglobin 12, platelet 99, coags with PT 18.2, INR 1.5, PTT 36.5, CMP with sodium 130, chloride 95, BUN/creatinine 23/1.54, glucose 152, total bilirubin 2.0, urinalysis concerning for urinary tract infection with urine culture pending per ED, culture ?2 pending per ED, chest x-ray with no acute findings. In the emergency room patient administered normal saline and IV Rocephin. Past Medical History Past Medical History (Chronic Problems): Chronic Problems Pulmonary embolism (Chronic) S/P ileostomy (Chronic) HTN (hypertension) (Chronic) Diabetes mellitus (Chronic) HLD (hyperlipidemia) (Chronic) Schizoaffective disorder (Chronic) Nicotine abuse (Chronic) Allergies No Known Allergies Allergy (Verified 11/13/17 18:10) Home Medications: Ambulatory Orders Medication Instructions Recorded Atenolol [Tenormin (beta vineet)] 25 mg PO DAILY 02/15/15 Clozapine [Clozaril] 100 mg PO BID 02/15/15 Lisinopril [Zestril] 2.5 mg PO DAILY 02/15/15 Lorazepam [Ativan] 2 mg PO BID 02/15/15 Lovastatin [Mevacor] 20 mg PO QHS 02/15/15 Benztropine [Cogentin] 1 mg PO BID 11/05/17 Sitagliptin Phos/Metformin HCl 1 tablet PO DAILY #1 tablet 11/07/17 [Janumet Xr 50-1,000 mg Tablet] Hydrochlorothiazide 50 mg PO DAILY 11/13/17 Magnesium Oxide [Magnesium] 500 mg PO DAILY 11/13/17 Montelukast [Singulair] 10 mg PO QHS 11/14/17 Perphenazine 8 mg PO 4X/DAY 11/14/17 Apixaban [Eliquis] 10 mg PO BID #60 tab 11/16/17 Loperamide [Imodium] 2 mg PO Q4H #60 cap 11/16/17 Tamsulosin HCl [Flomax] 0.4 mg PO DAILY@0830 #30 cap 11/16/17 Surgical History: - - Ileostomy w/ colon resection. Psychiatric History: Anxiety, Depression, Schizophrenia Lives: Shelter Smoking Status: Never smoker - Quit 10/2017 with transition to SNF. Tobacco Use: Non-smoker Alcohol: None Drugs: None - *Family History Maternal History Items: High Cholesterol Paternal History Items: Unknown Review of Systems Constitutional: Reports: Anorexia, Fever, Malaise, Weakness, Fatigue. Denies: Chills, Weight Change HEENT: Denies: Head Aches, Sinus Congestion, Sinus Drainage Cardiovascular: Denies: Chest Pain, Palpitations Respiratory: Denies: Cough, Shortness of breath at rest, Sputum production Gastrointestinal: Reports: - - High ostomy output.. Denies: Abdominal Pain, Nausea, Vomiting Genitourinary: Reports: Retention. Denies: Dysuria Musculoskeletal: Denies: Joint Pain, Joint Tenderness Skin: Denies: Rash, Wounds Neurological: Reports: Confusion. Denies: Focal weakness, Numbness, Tingling Psychiatric: Reports: Anxiety, Depression. Denies: Homicidal Ideations, Suicidal Ideations Hematologic/ Lymphatic: Reports: Easy Bruising, Easy Bleeding. Denies: Anemia VTE Information - Inpt Only VTE Present on Admission: No VTE Mechan Device Prophylaxis: SCD's VTE Pharm Prophylaxis ordered?: No Reason prophylaxis not ordered:: Treatment Not Indicated Patient Problems: Active and Suspected Problems Sepsis (Acute) UTI (urinary tract infection) (Acute) LUIS ANTONIO (acute kidney injury) (Acute) Hyponatremia (Acute) Subjective: Seated upright in the ED bed, fatigued appearing, NAD. Objective: Physical Examination: General: awake, alert, oriented to self, place, recent events, less interactive and mumbling per Family report, remains cooperative, seated upright in the ED bed in no apparent distress, fatigued appearance. Skin: normal color, turgor, no icterus, cyanosis. HEENT: AT/NC, EOMI, PERRLA, dry MM, no carotid bruits or JVD noted. Lungs: Diminished BL bases, poor effort, no rales, ronchi or wheezing. Heart: Regular rate and rhythm; no gallop, rub audible. Abdomen: soft, ileostomy in place, no suprapubic TTP and otherwise NTTP, ND, normal BS, no HSM. Extremities: no cyanosis, clubbing, or edema. Neurological: patient awake, alert, oriented as noted; cognitive function decreased from baseline; pupils equally reactive to light and accomodation; cranial nerves II-XII grossly normal, moving all 4 extremities, no focal deficits, strength severely globally decreased. Psychiatric: affect appears lethargic, flat, no acute evidence of depressive or anxiety feelings. - Physical Exam Vital Signs Temp Pulse Resp BP Pulse Ox 98.4 F 95 18 105/78 97 12/26/17 22:38 12/26/17 22:38 12/26/17 22:38 12/26/17 22:38 12/26/17 22:38 Oxygen Delivery Method Room Air Weight: 206 lb 12.697 oz Body Mass Index (BMI) 27.3 Finger Stick Blood Glucose 206 Laboratory Tests Past 24 Hrs 12/26/17 12/26/17 12/26/17 21:55 21:55 21:55 WBC 7.4 RBC 4.20 L Hgb 12.0 L Hct 35.5 L MCV 84.5 MCH 28.6 MCHC 33.8 RDW 13.5 RDW Differential 41.3 Plt Count 99 L MPV 9.7 Immature Gran % (Auto) 0.000 Neut % (Auto) 81.8 H Lymph % (Auto) 7.4 L [place] % (Auto) 10.7 H Eos % (Auto) 0.0 Baso % (Auto) 0.1 Absolute Neuts (auto) 6.1 Absolute Lymphs (auto) 0.55 L Total Counted Not Reportable Differential Comment SEE COMMENT Platelet Estimate MOD DEC RBC Morphology NORM C+C PT 18.2 H INR 1.5 APTT 36.5 H Sodium 130 L Potassium 3.6 Chloride 95 L Carbon Dioxide 23.0 Anion Gap 12 BUN 23 H Creatinine 1.54 H Estim Creat Clear Calc 61.25 Est GFR (MDRD) Af Amer 61 Est GFR (MDRD) Non-Af 50 L BUN/Creatinine Ratio 14.9 Glucose 152 H Lactic Acid Calcium 8.8 Total Bilirubin 2.00 H AST 36 ALT 60 Alkaline Phosphatase 117 Total Protein 7.3 Albumin 2.9 L Globulin 4.4 H Albumin/Globulin Ratio 0.7 L Urine Color Urine Clarity Urine pH Ur Specific [place] Urine Protein Urine Glucose (UA) Urine Ketones Urine Occult Blood Urine Nitrite Urine Bilirubin Urine Urobilinogen Ur Leukocyte Esterase Urine RBC Urine WBC Ur Squamous Epith Cells Ur Transition Epith Cell Urine Bacteria Fine Granular Casts Urine Mucus 12/26/17 12/26/17 21:55 22:19 WBC RBC Hgb Hct MCV MCH MCHC RDW RDW Differential Plt Count MPV Immature Gran % (Auto) Neut % (Auto) Lymph % (Auto) [place] % (Auto) Eos % (Auto) Baso % (Auto) Absolute Neuts (auto) Absolute Lymphs (auto) Total Counted Differential Comment Platelet Estimate RBC Morphology PT INR APTT Sodium Potassium Chloride Carbon Dioxide Anion Gap BUN Creatinine Estim Creat Clear Calc Est GFR (MDRD) Af Amer Est GFR (MDRD) Non-Af BUN/Creatinine Ratio Glucose Lactic Acid 1.6 Calcium Total Bilirubin AST ALT Alkaline Phosphatase Total Protein Albumin Globulin Albumin/Globulin Ratio Urine Color Yellow Urine Clarity Cloudy Urine pH 5.0 Ur Specific [place] 1.020 Urine Protein 100 H Urine Glucose (UA) Normal Urine Ketones 15 H Urine Occult Blood 250 H Urine Nitrite Negative Urine Bilirubin Negative Urine Urobilinogen Normal Ur Leukocyte Esterase 500 H Urine RBC 0-5 SEEN Urine WBC >100 SEEN Ur Squamous Epith Cells 0 SEEN Ur Transition Epith Cell 0-5 SEEN Urine Bacteria 4+ Fine Granular Casts 0-5 SEEN Urine Mucus 0 SEEN Assessment/Plan All Active Problems Sepsis (Acute) UTI (urinary tract infection) (Acute) LUIS ANTONIO (acute kidney injury) (Acute) Hyponatremia (Acute) ARF (acute renal failure) (Acute) The patient is a 57 y/o M w/ PMHx: Diabetes mellitus type II, HTN, HLD, Tobacco use history, Anxiety and Depression/Schizoaffective disorder, GERD, Recent 11/13/17 admission w/ acute Pulmonary Embolism, s/p colon resection and ileostomy secondary to severe chronic constipation w/ issues ongoing w/ high output w/ dehydration and LUIS ANTONIO who now re-presents from SNF to the [facility] ED on 12/26/17 with history of increased fatigue, lethargy, confusion as well as weakness for the last 48 hours, progressively worsening. (1) Acute Sepsis secondary to Acute Urinary Tract Infection: Will admit to [facility] upon ED evaluation remarkable, pending UCx, continue IVFs, monitor I/Os, continue IV Rocephin w/ transition as able pending sensitivities and speciation. Bld cx x 2 obtained in the ED. (2) Acute kidney injury: Secondary to poor intake and acute presentation, #1, #4. Admission BUN/Cr 23/1.54, prior baseline creatinine noted to be 0.7. Will hydrate, hold nephrotoxic medications and repeat chemistry in AM. Will monitor w/ bladder scans and catheterize as needed with history of retention. Maintain on flomax. (3) Hyponatremia, Hypovolemic: Admission Na 130, likely secondary to #1, #2, #4, continue hydration and repeat BMP in AM. (4) Chronic Constipation s/p Ileostomy w/ High Output: s/p colon resection and ileostomy secondary to severe chronic constipation at , notable continued high output, maintain on scheduled immodium, following w/ [facility], trend I&Os closely, corporate affairs manager consultation pending. Nutrition consulted. (5) Thrombocytopenia, Anemia, New Onset: Hgb 12, Plt 99, last Hgb 11/16/17 13.2 and plt 11/16/17 283, was treated at that time for acute PE and placed on anticoagulation. Will repeat CBC in AM, pending iron panel, ferritin, folic acid guiac. (6) Recent Pulmonary Embolism: Continue Eliquis regimen. (7) Diabetes mellitus type II: Hold oral home regimen, ADA diet, accu checks w/ ISS. (8) Anxiety and Depression/Schizoaffective disorder: (9) BPH: Continue home flomax regimen. (10) Hyperlipidemia: Continue home statin regimen. (11) Hypertension: Continue home regimen including atenolol, holding HCTZ and ACEI secondary to LUIS ANTONIO, PRN hydralazine. (12) DVT Prophylaxis: SCDs, eliquis. (13) CODE status: Patient has living will and mother is HCPOA. Discussed CODE status at length including difference between FULL code, DNR-CCA and DNR-CC status. Following discussions about the differences in these status, confirmed Full Code. Advanced Care Planning Face to Face Time: 17 minutes. Code Visit Inpatient E&M: [id number] Init Hosp L3 Procedures: [id number] Advncd Care Plan 30 Min
--- NOTE | 2017-12-26 23:10 | ED.VISSUMM ---
- ER Visit Summary Date of Service: 12/26/17 Chief Complaint: Altered mental status History of Present Illness: The patient is a 57 M who comes from a correction. Nursing noted that he was confused today. He is normally alert and oriented ?3. Family members noted that he has been mumbling today. Patient denies any pain. He denies headache. No nausea, vomiting or diarrhea. He has a history of acute renal failure. He has an ileostomy that was placed a couple months ago. Physical Examination: Vital signs reviewed. HEENT exam unremarkable. Heart is regular rate and rhythm without murmurs. Lungs are clear to auscultation. Abdomen is soft and nontender. Is an ileostomy in place. Extremities reveal no edema. Skin exam normal. Neurologic exam is that he is mumbling. He could tell me the month and where he is active in his name currently. He does have a parkinsonian twitch at baseline. Test Results: EKG is sinus rhythm with nonspecific ST-T wave changes. White blood cell count normal. Lactate normal. Creatinine 1.54. Urinalysis reveals greater than 100 white blood cells Emergency Department Course and Treatment: She has a UTI causing some delirium. He also has acute kidney injury. His baseline creatinine was 0.74. He will be hydrated with fluids. Given Rocephin. Admitted to the hospital Treatment Plan: [] Disposition: Admit Impression: UTI, AK I, sepsis This note was generated with [employer] dictation software. It may contain incorrect words, spelling, and punctuation that were not noted in review of the chart prior to signing ED Disposition - Plan for ED Patient: Chief Complaint: Confusion Referrals: Mohan Christianson MD [Primary Care Provider] -
[2017-12-26] MEDS: Ceftriaxone 1 GM/50 ML BAG IV (23:35)
[2017-12-26 23:38] VITALS: BP 115/79; PULSE 98; RESP 20
[2017-12-26] MEDS: 0.9% Normal Saline 1,000 ML 999 ML IV (23:38)
[2017-12-27] VITALS (11 sets, daily range): BP systolic 105–131; BP diastolic 67–73; PULSE 78–108; RESP 14–20; TEMP 36.6–38.4; O2SAT 95–100; BMI 26.6
[2017-12-27] MEDS: 0.9% Normal Saline 1,000 ML 999 ML IV (00:35)
[2017-12-27] MEDS: Acetaminophen 325 MG Tablet 650 MG PO ×3 (01:19→21:04)
[2017-12-27] MEDS: Loperamide 2 MG Capsule PO ×4 (01:19→12:41)
[2017-12-27] MEDS: 0.9% NaCl Peripheral Flush Adult/Peds IV (02:02)
[2017-12-27 02:04] LABS: ALB/GLOB Ratio 0.7 RATIO (0.9-2.4); AST(SGOT) 47 U/L (15-37); Alanine Aminotransfer ALT/SGPT 63 U/L (16-61); Alkaline Phosphatase 114 U/L (45-117); Anion Gap 13 (5-15); BUN 22 mg/dL (7-18); BUN/Creat Ratio 15.5 RATIO (10-20); Calcium,Total 8.5 mg/dL (8.5-10.1); Chloride 97 mmol/L (98-107); Creatinine, Serum 1.42 mg/dL (0.70-1.30); EST Glomerular Filtration Rate 55 mL/min (>60); Est Glom Filt Rate - Afr Amer 66 mL/min (>60); Estimated Creatinine Clearance 66.43 ml/min; Globulin 4.2 g/dL (2.2-4.2); Glucose 150 mg/dL (74-106); Hemoglobin A1c 6.9 % (4.2-6.3); Potassium 3.4 mmol/L (3.5-5.1); Protein, Total 7.2 g/dL (6.4-8.2); Sodium Level 131 mmol/L (136-145)
[2017-12-27] MEDS: LORazepam 1 MG Tablet 2 MG PO ×2 (02:05→09:58)
[2017-12-27] MEDS: 0.9% Normal Saline 1,000 ML 125 ML IV ×3 (02:15→17:37)
--- NOTE | 2017-12-27 02:21 | NURSING ---
IS given to patient. This RN returned to room and found patient chewing on IS, breaking pieces apart. Very restless. Appears to grab at any objects he can. Placing items in mouth. Has already pulled out 1 IV. Items removed from bedside that patient could accidentally choke on if placed in mouth (Toothbrush, toothpaste, emesis basin, IS) and place at sink counter. Stuffed animal provided to patient--Patient pulling and fidgeting with this now. He is also plucking tissues from box. Will monitor. FIELD TECHNICAL ASSISTANT alerted to monitor he does not get small objects in hand.
[2017-12-27 02:37] LABS: Ferritin 467 ng/mL (26-388); Iron 16 ug/dL (65-175); Iron Binding Capacity,Total 258 ug/dL (250-450); PERCENT IRON SATURATION 6.2 % (15.0-55.0)
[2017-12-27 03:14] LABS: Differential Indicated SCAN CRITERIA MET; Hematocrit 32.5 % (40-54); Hemoglobin 11.3 g/dl (13.0-16.5); Mean Corp Hgb Conc 34.8 g/gl (32-36); Mean Corpuscular Hgb 29.1 pg (27.0-32.0); Mean Corpuscular Volume 83.8 fL (80-94); Neutrophil % 84.7 % (47-70); POSITIVE COUNT NO; POSITIVE DIFFERENTIAL YES; POSITIVE MORPHOLOGY NO; Platelet Count 117 K/mm3 (150-450); RBC Distribution Width CV 13.3 % (11.6-14.6); RBC Distribution Width SD 39.8 fl (35.1-43.9); Red Blood Count 3.88 M/mm3 (4.6-6.2); White Blood Count 6.9 K/mm3 (4.4-11.0)
[2017-12-27 03:15] LABS: Absolute Lymphocyte Count 0.48 X10^3/ul (0.83-4.51); Absolute Neutrophil Count 5.8 X10^3/uL (2.0-7.7); Basophil# 0.01 X10^3/uL; Basophil% 0.1 % (0-1); Eosinophil# 0.03 X10^3/uL; Eosinophils% 0.4 % (0-5); Lymphocyte # 0.48 X10^3/ul (4.0); Lymphocyte % 6.9 % (19-41); Monocyte# 0.54 X10^3/uL; Monocyte% 7.8 % (0-10); Neutrophil # 5.84 X10^3/uL (2.7-7.7)
[2017-12-27 03:17] LABS: Differential Comment SCANNED
[2017-12-27] MEDS: Ipratropium/Albuterol Sulfate 3 ML AMPUL.NEB INHALATION ×3 (06:40→18:50)
[2017-12-27 06:56] LABS: Bedside Glucose 158 mg/dL (70-110)
[2017-12-27] MEDS: Tamsulosin HCl 0.4 MG Capsule PO (08:32)
[2017-12-27] MEDS: Ceftriaxone 1 GM/50 ML BAG IV (09:55)
[2017-12-27] MEDS: APIXABAN 5 MG TABLET PO ×2 (09:55→21:06)
[2017-12-27] MEDS: Benztropine 2 MG Tablet 1 MG PO ×2 (09:55→21:02)
[2017-12-27] MEDS: Atenolol 25 MG Tablet PO (09:56)
[2017-12-27 11:45] LABS: Bedside Glucose 211 mg/dL (70-110)
--- NOTE | 2017-12-27 12:46 | PCM.PN.HOSP ---
Patient Problems: Active and Suspected Problems Sepsis (Acute) UTI (urinary tract infection) (Acute) LUIS ANTONIO (acute kidney injury) (Acute) Hyponatremia (Acute) Subjective: The patient is somnolent and obtunded. He does not coordinate with his speech and he mumbles barely few words. He said his date of right but not oriented with place, person and situation. His past medical history is complicated with history of schizophrenia, dementia and is on multiple antipsychotic medications including clozapine,Ativan mg 4 4 hourly and perphenazine Patient had a fever 100.2 Fahrenheit, about 2 AM and 99 point 4 in the morning. Has urinary retention. Vitals/I&O's: Vital Signs Temp Pulse Resp BP Pulse Ox 99.4 F H 108 H 16 115/73 100 12/27/17 11:43 12/27/17 11:43 12/27/17 11:43 12/27/17 11:43 12/27/17 11:43 Oxygen Delivery Method Room Air Weight: 201 lb 15.095 oz Body Mass Index (BMI) 26.6 Intake and Output for Last 24 Hours 12/25/17 12/26/17 12/27/17 23:59 23:59 23:59 Intake Total 2424 / 2424 Output Total 1550 / 1550 Balance 874 / 874 General: Confused, Disoriented, Lethargic HEENT: Atraumatic, PERRLA, EOMI, Normocephalic Oral: Dry Mucosa Neck: Supple, No JVD, Negative Carotid Bruits Lungs: Clear to auscultation, No rhonchi, No wheeze, No rales, Diminished Cardiovascular: Regular rate, Regular Rhythm, Normal S1, Normal S2, No murmurs Abdomen: Bowel Sounds Present, Soft, Non Tender, Non-Distended Extremities: Capillary Refill Less than 3 Seconds, Diminished Peripheral Pulses, Edema Skin: No rashes, No breakdown Musculoskeletal: No Tenderness to Palpation of Joints or Extremities, Arthritic Changes, Muscle Wasting Neurological: Cranial nerves II-XII grossly intact Psych/Mental Status: Normal Affect, Appropriate Microbiology Past 72 Hours 12/27/17 06:20 Stool C. difficile DNA Amplification - Final 12/27/17 06:20 Stool Stool Occult Blood (DENISSE) - Final Laboratory Results 12/27/17 01:24: Magnesium 2.0, Iron 16 L, TIBC 258, Iron Saturation 6.2 L, Ferritin 467 H, Folate 19.70 12/27/17 01:24: Hemoglobin A1c 6.9 H 12/27/17 01:24: WBC 6.9, RBC 3.88 L, Hgb 11.3 L, Hct 32.5 L, MCV 83.8, MCH 29.1, MCHC 34.8, RDW 13.3, RDW Differential 39.8, Plt Count 117 L, MPV 11.0, Immature Gran % (Auto) 0.100, Neut % (Auto) 84.7 H, Lymph % (Auto) 6.9 L, [place] % (Auto) 7.8, Eos % (Auto) 0.4, Baso % (Auto) 0.1, Absolute Neuts (auto) 5.8, Absolute Lymphs (auto) 0.48 L, Total Counted Not Reportable, Differential Comment SCANNED 12/27/17 01:24: Sodium 131 L, Potassium 3.4 L, Chloride 97 L, Carbon Dioxide 21.0, Anion Gap 13, BUN 22 H, Creatinine 1.42 H, Estim Creat Clear Calc 66.43, Est GFR (MDRD) Af Amer 66, Est GFR (MDRD) Non-Af 55 L, BUN/Creatinine Ratio 15.5, Glucose 150 H, Calcium 8.5, Total Bilirubin 1.80 H, AST 47 H, ALT 63 H, Alkaline Phosphatase 114, Total Protein 7.2, Albumin 3.0 L, Globulin 4.2, Albumin/Globulin Ratio 0.7 L 12/27/17 01:24: Vitamin B12 Pending 12/27/17 06:35: POC Glucose 158 H 12/27/17 11:19: POC Glucose 211 H Current Medications Acetaminophen (Tylenol) 650 mg PO Q6H PRN PRN PRN Reason: Mild Pain (scale 0-3)/T>100.7 Last Admin: 12/27/17 11:25 Dose: 650 mg Al Hydroxide/Mg Hydroxide (Mylanta Ii) 30 ml PO Q6H PRN PRN PRN Reason: Gastric burning Albuterol Sulfate (Ventolin Aerosols) 2.5 mg INHALATION Q2H PRN PRN PRN Reason: dyspnea, wheezing Albuterol/Ipratropium (Duoneb) 3 ml INHALATION Q6HWA.RT MARYURI Apixaban (Eliquis) 5 mg PO BID [facility] Last Admin: 12/27/17 09:55 Dose: 5 mg Atenolol (Tenormin (Beta Gabby)) 25 mg PO DAILY [facility] Last Admin: 12/27/17 09:56 Dose: 25 mg Atorvastatin Calcium (Lipitor) 5 mg PO QHS [facility] Benztropine Mesylate (Cogentin) 1 mg PO BID [facility] Last Admin: 12/27/17 09:55 Dose: 1 mg Clozapine (Clozaril) 100 mg PO BID [facility] Last Admin: 12/27/17 09:55 Dose: 100 mg Sodium Chloride () 1,000 mls @ 125 mls/hr IV .Q8H [facility] Last Admin: 12/27/17 09:59 Dose: 125 mls/hr Ceftriaxone Sodium (Rocephin) 1 gm in 50 mls @ 100 mls/hr IV Q24 [facility] Last Admin: 12/27/17 09:55 Dose: 100 mls/hr Loperamide HCl (Imodium) 2 mg PO Q4H [facility] Last Admin: 12/27/17 12:41 Dose: 2 mg Lorazepam (Ativan) 2 mg PO BID [facility] Last Admin: 12/27/17 09:58 Dose: 2 mg Magnesium Hydroxide (Milk Of Magnesia) 30 ml PO DAILY PRN PRN PRN Reason: Constipation Montelukast Sodium (Singulair) 10 mg PO QHS [facility] Nutritional Formula (Lactose Free) (Glucerna Shake) 120 ml PO 4X/DAY [facility] Ondansetron HCl (Zofran) 4 mg IV Q8H PRN PRN PRN Reason: NAUSEA Perphenazine (Perphenazine) 8 mg PO 4X/DAY [facility] Last Admin: 12/27/17 09:55 Dose: 8 mg Promethazine HCl (Phenergan) 12.5 mg IV Q6H PRN PRN PRN Reason: NAUSEA/VOMITING Sodium Chloride () 5 - 30 ml IV UD PRN PRN Reason: SALINE FLUSH Last Admin: 12/27/17 02:02 Dose: 20 ml Tamsulosin HCl (Flomax) 0.4 mg PO DAILY@0830 [facility] Last Admin: 12/27/17 08:32 Dose: 0.4 mg Medical Necessity - Tobacco Use Smoking Status: Never smoker Tobacco Use: Non-smoker Assessment/Plan All Active Problems Sepsis (Acute) UTI (urinary tract infection) (Acute) LUIS ANTONIO (acute kidney injury) (Acute) Hyponatremia (Acute) ARF (acute renal failure) (Acute) This is a 57-year-old gentleman with history of Diabetes mellitus type II, HTN, HLD, Tobacco use history, Anxiety and Depression/Schizoaffective disorder on multiple antipsychotic medications and Ativan, GERD, Recent 11/13/17 admission due to acute Pulmonary Embolism, s/p colon resection and ileostomy secondary to severe chronic constipation, complications of high-output ileostomy fistula and LUIS ANTONIO was admitted on 01-11 with increased lethargy, confusion, disorientation and fatigue with generalized weakness for last 2 days. 1. Sepsis (fever, tachypnea, tachycardia secondary to E. coli UTI) but normal lactic acid: Patient is being admitted on regular floor. UA shows pyuria, WBC more than 100 with leukocyte esterase H, nitrite negative but no hematuria. Prelim urine culture shows E. coli more than 100,000. Patient is on IV ceftriaxone. IV fluid normal saline. Monitor intake and output. 2. Acute kidney injury probably from combination of prerenal/UTI/postobstructive secondary to BPH: Patient has high output ileostomy fistula. Creatinine shows slight improvement from 1.54-1.40. BUN 22. IV fluid on replacement. Treat the underlying cause. Ultrasound kidneys and bladder. On Flomax. Postvoid on bladder scan has been 450 and 500 mL on 2 occasions. 3. Urology conditions: Probably BPH and neurogenic bladder probably induced from multiple antipsychotic medications: Flomax increased to 0.8 mg daily. Consult urology. Rest as above mentioned. 4. Electrolyte imbalance: Hypotonic hypovolemic hyponatremia secondary to high output ileostomy fistula. Monitor sodium. Sodium is about 130. K3.4. Magnesium 2.0. 5. Anemia of chronic disease AND Thrombocytopenia: Iron profile shows iron 16, TIBC 258, on the low normal range; ferritin 467; iron profile suggestive of anemia of chronic disease. Stool for guaiac test is negative. Folate normal. (6) Recent Pulmonary Embolism: Continue Eliquis regimen. (7) Diabetes mellitus type II: Hold oral home regimen, ADA diet, accu checks w/ ISS. (8) Anxiety and Depression/Schizoaffective disorder: Hyperlipidemia: Continue home statin regimen. Hypertension: Continue home regimen including atenolol, holding HCTZ and ACEI secondary to LUIS ANTONIO, PRN hydralazine. DVT Prophylaxis: eliquis. Microbiology Past 72 Hours 12/26/17 22:19 Urine Catheter - Catheter Urine Culture - Preliminary Presumptive E. coli 12/27/17 06:20 Stool C. difficile DNA Amplification - Final 12/27/17 06:20 Stool Stool Occult Blood (DENISSE) - Final Laboratory Results 12/26/17 21:55: WBC 7.4, RBC 4.20 L, Hgb 12.0 L, Hct 35.5 L, MCV 84.5, MCH 28.6, MCHC 33.8, RDW 13.5, RDW Differential 41.3, Plt Count 99 L, MPV 9.7, Immature Gran % (Auto) 0.000, Neut % (Auto) 81.8 H, Lymph % (Auto) 7.4 L, [place] % (Auto) 10.7 H, Eos % (Auto) 0.0, Baso % (Auto) 0.1, Absolute Neuts (auto) 6.1, Absolute Lymphs (auto) 0.55 L, Total Counted Not Reportable, Differential Comment SEE COMMENT, Platelet Estimate MOD DEC, RBC Morphology NORM C+C 12/26/17 21:55: PT 18.2 H, INR 1.5, APTT 36.5 H 12/26/17 21:55: Sodium 130 L, Potassium 3.6, Chloride 95 L, Carbon Dioxide 23.0, Anion Gap 12, BUN 23 H, Creatinine 1.54 H, Estim Creat Clear Calc 61.25, Est GFR (MDRD) Af Amer 61, Est GFR (MDRD) Non-Af 50 L, BUN/Creatinine Ratio 14.9, Glucose 152 H, Calcium 8.8, Total Bilirubin 2.00 H, AST 36, ALT 60, Alkaline Phosphatase 117, Total Protein 7.3, Albumin 2.9 L, Globulin 4.4 H, Albumin/Globulin Ratio 0.7 L 12/26/17 21:55: Lactic Acid 1.6 12/26/17 22:19: Urine Color Yellow, Urine Clarity Cloudy, Urine pH 5.0, Ur Specific [place] 1.020, Urine Protein 100 H, Urine Glucose (UA) Normal, Urine Ketones 15 H, Urine Occult Blood 250 H, Urine Nitrite Negative, Urine Bilirubin Negative, Urine Urobilinogen Normal, Ur Leukocyte Esterase 500 H, Urine RBC 0-5 SEEN, Urine WBC >100 SEEN, Ur Squamous Epith Cells 0 SEEN, Ur Transition Epith Cell 0-5 SEEN, Urine Bacteria 4+, Fine Granular Casts 0-5 SEEN, Urine Mucus 0 SEEN 12/27/17 01:24: Magnesium 2.0, Iron 16 L, TIBC 258, Iron Saturation 6.2 L, Ferritin 467 H, Folate 19.70 12/27/17 01:24: Hemoglobin A1c 6.9 H 12/27/17 01:24: WBC 6.9, RBC 3.88 L, Hgb 11.3 L, Hct 32.5 L, MCV 83.8, MCH 29.1, MCHC 34.8, RDW 13.3, RDW Differential 39.8, Plt Count 117 L, MPV 11.0, Immature Gran % (Auto) 0.100, Neut % (Auto) 84.7 H, Lymph % (Auto) 6.9 L, [place] % (Auto) 7.8, Eos % (Auto) 0.4, Baso % (Auto) 0.1, Absolute Neuts (auto) 5.8, Absolute Lymphs (auto) 0.48 L, Total Counted Not Reportable, Differential Comment SCANNED 12/27/17 01:24: Sodium 131 L, Potassium 3.4 L, Chloride 97 L, Carbon Dioxide 21.0, Anion Gap 13, BUN 22 H, Creatinine 1.42 H, Estim Creat Clear Calc 66.43, Est GFR (MDRD) Af Amer 66, Est GFR (MDRD) Non-Af 55 L, BUN/Creatinine Ratio 15.5, Glucose 150 H, Calcium 8.5, Total Bilirubin 1.80 H, AST 47 H, ALT 63 H, Alkaline Phosphatase 114, Total Protein 7.2, Albumin 3.0 L, Globulin 4.2, Albumin/Globulin Ratio 0.7 L 12/27/17 01:24: Vitamin B12 Pending 12/27/17 06:35: POC Glucose 158 H 12/27/17 11:19: POC Glucose 211 H Code Visit Inpatient E&M: 35495 Subs Hosp L3
[2017-12-27] MEDS: Glucerna Shake 120 ML LIQUID PO ×3 (14:20→21:05)
[2017-12-27] MEDS: Montelukast 10 MG Tablet PO (21:07)
[2017-12-28] VITALS (9 sets, daily range): BP systolic 102–139; BP diastolic 61–99; PULSE 73–88; RESP 16–18; TEMP 36.6–37.5; O2SAT 92–99
[2017-12-28] MEDS: hydrOXYzine PAM 25 MG Capsule PO ×2 (02:59→09:56)
[2017-12-28] MEDS: 0.9% Normal Saline 1,000 ML 125 ML IV (03:06)
[2017-12-28] MEDS: LORazepam 2 MG/ML Syringe 1 MG IV ×3 (04:35→12:20)
--- NOTE | 2017-12-28 04:40 | NURSING ---
Pt found standing at side of bed with bed exit alarming for 2nd time. Moreno pulled tight. Pt alert to self only, unchanged from earlier assessment. Gilbert charge nurse at bedside. Assisted pt back into bed.Given 1mg prn ativan IV for anxiety and restlessness.
[2017-12-28] MEDS: Acetaminophen 325 MG Tablet 650 MG PO (05:57)
--- NOTE | 2017-12-28 06:07 | NURSING ---
pt attempting to get oob, states i'm getting out of here, I've been in hotels for 2 weeks. Reoriented pt, explained plan of care. Pt expresses understanding. C/o headache. given tylenol. Pt also c/o feels anxious. Given 2nd dose Ativan 1mg IV.
[2017-12-28 06:53] LABS: Absolute Lymphocyte Count 0.67 X10^3/ul (0.83-4.51); Basophil# 0.01 X10^3/uL; Basophil% 0.3 % (0-1); Eosinophil# 0.04 X10^3/uL; Eosinophils% 1.2 % (0-5); Hematocrit 32.6 % (40-54); Hemoglobin 10.9 g/dl (13.0-16.5); Lymphocyte # 0.67 X10^3/ul (4.0); Lymphocyte % 20.4 % (19-41); Mean Corp Hgb Conc 33.4 g/gl (32-36); Mean Corpuscular Volume 83.8 fL (80-94); Mean Platelet Vol. 11.4 fl (6.2-12.0); Monocyte# 0.53 X10^3/uL; Monocyte% 16.1 % (0-10); Neutrophil # 2.02 X10^3/uL (2.7-7.7); Neutrophil % 61.4 % (47-70); Platelet Count 110 K/mm3 (150-450); RBC Distribution Width CV 13.7 % (11.6-14.6); RBC Distribution Width SD 41.9 fl (35.1-43.9); Red Blood Count 3.89 M/mm3 (4.6-6.2); White Blood Count 3.3 K/mm3 (4.4-11.0)
[2017-12-28 07:03] LABS: POSITIVE COUNT NO; POSITIVE DIFFERENTIAL NO; POSITIVE MORPHOLOGY NO
[2017-12-28] MEDS: Ipratropium/Albuterol Sulfate 3 ML AMPUL.NEB INHALATION ×2 (07:05→19:33)
[2017-12-28 07:10] LABS: Anion Gap 11 (5-15); BUN 11 mg/dL (7-18); BUN/Creat Ratio 12.9 RATIO (10-20); Calcium,Total 7.9 mg/dL (8.5-10.1); Chloride 106 mmol/L (98-107); Creatinine, Serum 0.85 mg/dL (0.70-1.30); EST Glomerular Filtration Rate 99 mL/min (>60); Est Glom Filt Rate - Afr Amer 120 mL/min (>60); Estimated Creatinine Clearance 110.97 ml/min; Glucose 143 mg/dL (74-106); Sodium Level 139 mmol/L (136-145)
--- NOTE | 2017-12-28 07:51 | PCM.CONS.U ---
Problem List (1) LUIS ANTONIO (acute kidney injury) Status: Acute (2) UTI (urinary tract infection) Status: Acute Qualifiers: Urinary tract infection type: acute cystitis Reason for Consult Date of Consultation: 12/28/17 Reason for Consultation: Urinary tract infection possible BPH History of Present Illness: The patient is a 57 year old male who was admitted to the emergency room with confusion and was found to have an E. coli UTI he currently has a catheter in place at this point is able to answer questions more appropriately he does have difficulty with communication given his disabilities. The urine is nice and clear. He is grown E. coli in the urine continue with treatment as necessary his Flomax has been increased which is appropriate. At this point I think we do not want to DC his Moreno for another voiding trial and check a PVR. Past Medical History Past Medical History (Chronic Problems): Chronic Problems Pulmonary embolism (Chronic) S/P ileostomy (Chronic) HTN (hypertension) (Chronic) Diabetes mellitus (Chronic) HLD (hyperlipidemia) (Chronic) Schizoaffective disorder (Chronic) Nicotine abuse (Chronic) Allergies No Known Allergies Allergy (Verified 11/13/17 18:10) Home Medications: Ambulatory Orders Medication Instructions Recorded Atenolol [Tenormin (beta vineet)] 25 mg PO DAILY 02/15/15 Clozapine [Clozaril] 100 mg PO BID 02/15/15 Lisinopril [Zestril] 2.5 mg PO DAILY 02/15/15 Lorazepam [Ativan] 2 mg PO BID 02/15/15 Lovastatin [Mevacor] 20 mg PO QHS 02/15/15 Benztropine [Cogentin] 1 mg PO BID 11/05/17 Sitagliptin Phos/Metformin HCl 1 tablet PO DAILY #1 tablet 11/07/17 [Janumet Xr 50-1,000 mg Tablet] Hydrochlorothiazide 50 mg PO DAILY 11/13/17 Magnesium Oxide [Magnesium] 400 mg PO DAILY 11/13/17 Montelukast [Singulair] 10 mg PO QHS 11/14/17 Perphenazine 8 mg PO 4X/DAY 11/14/17 Loperamide [Imodium] 2 mg PO Q4H #60 cap 11/16/17 Tamsulosin HCl [Flomax] 0.4 mg PO DAILY@0830 #30 cap 11/16/17 Acetaminophen [Tylenol] 650 mg RECTAL Q4H PRN PRN 12/27/17 Apixaban [Eliquis] 5 mg PO BID 12/27/17 Potassium Chloride [Klor-Con M20] 20 meq PO BID 12/27/17 Surgical History: noncontributory, - - Ileostomy w/ colon resection. Psychiatric History: Anxiety, Depression, Schizophrenia Lives: Long-Term Smoking Status: Never smoker Tobacco Use: Non-smoker Alcohol: None Drugs: None - *Family History Maternal History Items: High Cholesterol Paternal History Items: Unknown Review of Systems Constitutional: Reports: Fever. Denies: Chills, Weight Change HEENT: Denies: Head Aches, Sinus Congestion, Sinus Drainage Cardiovascular: Denies: Chest Pain, Palpitations Respiratory: Denies: Cough, Shortness of breath at rest, Sputum production Gastrointestinal: Denies: Abdominal Pain, Nausea, Vomiting Genitourinary: Reports: Dysuria, Incontinence, Retention Musculoskeletal: Denies: Joint Pain, Joint Tenderness Skin: Denies: Rash, Wounds Neurological: Denies: Numbness, Tingling, Focal weakness Psychiatric: Denies: Anxiety, Depression, Homicidal Ideations, Suicidal Ideations Hematologic/ Lymphatic: Denies: Easy Bruising, Easy Bleeding Physical Exam - Physical Exam Vital Signs Temp 97.8 F 12/28/17 06:05 Pulse 85 12/28/17 07:05 Resp 16 12/28/17 07:05 BP 122/83 H 12/28/17 06:05 Pulse Ox 97 12/28/17 07:05 Intake & Output 12/26/17 12/27/17 12/28/17 23:59 23:59 23:59 Intake Total 2674 / 2674 1895 / 1895 Output Total 1650 / 1650 1325 / 1325 Balance 1024 / 1024 570 / 570 Weight: 91.6 kg Intake: Oral 550 / 550 400 / 400 IV fluid/meds 2124 / 2124 1495 / 1495 Output: Urine 1100 / 1100 1050 / 1050 Stool Amount 550 / 550 275 / 275 Other: Number of times incontinent 1 Incontinent Amount Large General: Cooperative HEENT: Atraumatic Oral: Moist Mucosa Neck: Supple Lungs: Normal air movement Cardiovascular: Regular rate Abdomen: Bowel Sounds Present, Soft, Obese Rectal: Exam deferred Microbiology Past 72 Hours 12/27/17 06:20 C. difficile DNA Amplification - Final Stool 12/27/17 06:20 Stool Occult Blood (DENISSE) - Final Stool Laboratory Tests Past 24 Hrs 12/28/17 12/28/17 05:55 05:55 WBC 3.3 L RBC 3.89 L Hgb 10.9 L Hct 32.6 L MCV 83.8 MCH 28.0 MCHC 33.4 RDW 13.7 RDW Differential 41.9 Plt Count 110 L MPV 11.4 Immature Gran % (Auto) 0.600 Neut % (Auto) 61.4 Lymph % (Auto) 20.4 [place] % (Auto) 16.1 H Eos % (Auto) 1.2 Baso % (Auto) 0.3 Absolute Neuts (auto) 2.0 Absolute Lymphs (auto) 0.67 L Total Counted Not Reportable Sodium 139 Potassium 3.0 L Chloride 106 Carbon Dioxide 22.0 Anion Gap 11 BUN 11 Creatinine 0.85 Estim Creat Clear Calc 110.97 Est GFR (MDRD) Af Amer 120 Est GFR (MDRD) Non-Af 99 BUN/Creatinine Ratio 12.9 Glucose 143 H Calcium 7.9 L Assessment/Plan All Active Problems Sepsis (Acute) UTI (urinary tract infection) (Acute) LUIS ANTONIO (acute kidney injury) (Acute) Hyponatremia (Acute) ARF (acute renal failure) (Acute) 57-year-old male presented to the hospital with elevated creatinine, urinary tract infection, Moreno catheter is in place his creatinines come back down some his Flomax but increased. Has a history of constipation in the past. Recommend that we remove the Moreno catheter for a voiding trial and check a postvoid residual continue with Flomax as prescribed call with questions.
--- NOTE | 2017-12-28 08:28 | NURSING ---
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
--- NOTE | 2017-12-28 08:55 | PCM.PN.HOSP ---
Patient Problems: Active and Suspected Problems Sepsis (Acute) UTI (urinary tract infection) (Acute) LUIS ANTONIO (acute kidney injury) (Acute) Hyponatremia (Acute) Subjective: Patient is awake, alert and answering simple questions. Sitting upright and eating his breakfast. Urine is clear. Dr. Skinner consult reviewed and appreciated. Temperature 101.1?F last night Vitals/I&O's: Vital Signs Temp Pulse Resp BP Pulse Ox 97.8 F 85 16 122/83 H 97 12/28/17 06:05 12/28/17 07:05 12/28/17 07:05 12/28/17 06:05 12/28/17 07:05 Oxygen Delivery Method Room Air Weight: 201 lb 15.095 oz Body Mass Index (BMI) 26.6 Intake and Output for Last 24 Hours 12/26/17 12/27/17 12/28/17 23:59 23:59 23:59 Intake Total 2674 / 2674 1895 / 1895 Output Total 1650 / 1650 1325 / 1325 Balance 1024 / 1024 570 / 570 General: Alert, Oriented x3, Cooperative HEENT: Atraumatic, PERRLA, EOMI, Normocephalic Neck: Supple, No JVD, Negative Carotid Bruits Lungs: Clear to auscultation, Normal air movement Cardiovascular: Regular rate, Normal S1, Normal S2, No murmurs Abdomen: Bowel Sounds Present, Soft, Non Tender, Non-Distended, - - Moreno catheter clear urine. Extremities: No edema, Capillary Refill Less than 3 Seconds Skin: No rashes, No breakdown Musculoskeletal: No Tenderness to Palpation of Joints or Extremities, Arthritic Changes Neurological: Cranial nerves II-XII grossly intact, Neuro grossly intact Psych/Mental Status: Anxious Microbiology Past 72 Hours 12/27/17 06:20 Stool C. difficile DNA Amplification - Final 12/27/17 06:20 Stool Stool Occult Blood (DENISSE) - Final Laboratory Results 12/27/17 11:19: POC Glucose 211 H 12/28/17 05:55: WBC 3.3 L, RBC 3.89 L, Hgb 10.9 L, Hct 32.6 L, MCV 83.8, MCH 28.0, MCHC 33.4, RDW 13.7, RDW Differential 41.9, Plt Count 110 L, MPV 11.4, Immature Gran % (Auto) 0.600, Neut % (Auto) 61.4, Lymph % (Auto) 20.4, [place] % (Auto) 16.1 H, Eos % (Auto) 1.2, Baso % (Auto) 0.3, Absolute Neuts (auto) 2.0, Absolute Lymphs (auto) 0.67 L, Total Counted Not Reportable 12/28/17 05:55: Sodium 139, Potassium 3.0 L, Chloride 106, Carbon Dioxide 22.0, Anion Gap 11, BUN 11, Creatinine 0.85, Estim Creat Clear Calc 110.97, Est GFR (MDRD) Af Amer 120, Est GFR (MDRD) Non-Af 99, BUN/Creatinine Ratio 12.9, Glucose 143 H, Calcium 7.9 L Current Medications Acetaminophen (Tylenol) 650 mg PO Q6H PRN PRN PRN Reason: Mild Pain (scale 0-3)/T>100.7 Last Admin: 12/28/17 05:57 Dose: 650 mg Al Hydroxide/Mg Hydroxide (Mylanta Ii) 30 ml PO Q6H PRN PRN PRN Reason: Gastric burning Albuterol Sulfate (Ventolin Aerosols) 2.5 mg INHALATION Q2H PRN PRN PRN Reason: dyspnea, wheezing Albuterol/Ipratropium (Duoneb) 3 ml INHALATION Q6HWA.RT [facility] Last Admin: 12/28/17 07:05 Dose: 3 ml Apixaban (Eliquis) 5 mg PO BID [facility] Last Admin: 12/27/17 21:06 Dose: 5 mg Atenolol (Tenormin (Beta Gabby)) 25 mg PO DAILY [facility] Last Admin: 12/27/17 09:56 Dose: 25 mg Benztropine Mesylate (Cogentin) 1 mg PO BID [facility] Last Admin: 12/27/17 21:02 Dose: 1 mg Clozapine (Clozaril) 100 mg PO BID [facility] Last Admin: 12/27/17 21:05 Dose: 100 mg Dicyclomine HCl (Bentyl) 20 mg PO Q6H PRN PRN PRN Reason: Abdomnial Discomfort Hydroxyzine Pamoate (Vistaril Pamoate Capsule) 25 mg PO Q6H PRN PRN PRN Reason: Mild Anxiety Last Admin: 12/28/17 02:59 Dose: 25 mg Sodium Chloride () 1,000 mls @ 125 mls/hr IV .Q8H [facility] Last Admin: 12/28/17 03:06 Dose: 125 mls/hr Ceftriaxone Sodium (Rocephin) 1 gm in 50 mls @ 100 mls/hr IV Q24 [facility] Last Admin: 12/27/17 09:55 Dose: 100 mls/hr Potassium Chloride (Kcl 10meq/100ml) 10 meq in 100 mls @ 100 mls/hr IV BOLUS Q1H [facility] Stop: 12/28/17 10:59 Lorazepam (Ativan) 1 mg IV Q4H PRN PRN PRN Reason: Severe Anxiety Last Admin: 12/28/17 05:58 Dose: 1 mg Magnesium Hydroxide (Milk Of Magnesia) 30 ml PO DAILY PRN PRN PRN Reason: Constipation Methocarbamol (Robaxin) 500 mg PO Q6H PRN PRN PRN Reason: Muscle Aches Montelukast Sodium (Singulair) 10 mg PO QHS [facility] Last Admin: 12/27/17 21:07 Dose: 10 mg Nutritional Formula (Lactose Free) (Glucerna Shake) 120 ml PO 4X/DAY [facility] Last Admin: 12/27/17 21:05 Dose: 120 ml Ondansetron HCl (Zofran) 4 mg IV Q8H PRN PRN PRN Reason: NAUSEA Perphenazine (Perphenazine) 8 mg PO 4X/DAY [facility] Last Admin: 12/27/17 21:06 Dose: 8 mg Potassium Chloride (K-Dur) 40 meq PO DAILYCM [facility] Stop: 12/30/17 08:54 Promethazine HCl (Phenergan) 12.5 mg IV Q6H PRN PRN PRN Reason: NAUSEA/VOMITING Sodium Chloride () 5 - 30 ml IV UD PRN PRN Reason: SALINE FLUSH Last Admin: 12/27/17 02:02 Dose: 20 ml Tamsulosin HCl (Flomax) 0.4 mg PO DAILY@0830 [facility] Last Admin: 12/27/17 08:32 Dose: 0.4 mg Medical Necessity - Tobacco Use Smoking Status: Never smoker Tobacco Use: Non-smoker Assessment/Plan All Active Problems Sepsis (Acute) UTI (urinary tract infection) (Acute) LUIS ANTONIO (acute kidney injury) (Acute) Hyponatremia (Acute) ARF (acute renal failure) (Acute) This is a 57-year-old gentleman with history of Diabetes mellitus type II, HTN, HLD, Tobacco use history, Anxiety and Depression/Schizoaffective disorder on multiple antipsychotic medications and Ativan, GERD, Recent 11/13/17 admission due to acute Pulmonary Embolism, s/p colon resection and ileostomy secondary to severe chronic constipation, complications of high-output ileostomy fistula and LUIS ANTONIO was admitted on 01-11 with increased lethargy, confusion, disorientation and fatigue with generalized weakness for last 2 days. 1. Sepsis (fever, tachypnea, tachycardia secondary to E. coli UTI) but normal lactic acid: Patient is being admitted on regular floor. UA shows pyuria, WBC more than 100 with leukocyte esterase H, nitrite negative but no hematuria. Prelim urine culture shows E. coli more than 100,000. Patient is on IV ceftriaxone. IV fluid normal saline. Monitor intake and output. E. coli sensitive to ceftriaxone. Continue ceftriaxone and will change to cefadroxil at time of discharge. 2. Acute kidney injury probably from combination of prerenal/UTI/postobstructive secondary to BPH; resolved: Patient has high output ileostomy fistula. Treat the underlying cause. Ultrasound kidneys and bladder. On Flomax. Postvoid on bladder scan has been 450 ml and 500 mL on 2 occasions. Creatinine is back to baseline 0.8 mg/dL. 3. Urology conditions: Probably BPH and neurogenic bladder probably induced from multiple antipsychotic medications: Flomax increased to 0.[address] Skinner ordered removal of Moreno catheter and a spontaneous voiding trials. Rest as above mentioned. 4. Electrolyte imbalance: Hypotonic hypovolemic hyponatremia secondary to high output ileostomy fistula. Monitor sodium. Magnesium 2.0. Sodium is corrected. K3.0 on replacement. Discontinue IV fluid normal saline 5. Anemia of chronic disease AND Thrombocytopenia: Iron profile shows iron 16, TIBC 258, on the low normal range; ferritin 467; iron profile suggestive of anemia of chronic disease. Stool for guaiac test is negative. Folate normal. (6) Recent Pulmonary Embolism: Continue Eliquis regimen. (7) Diabetes mellitus type II: Hold oral home regimen, ADA diet, accu checks w/ ISS. (8) Anxiety and Depression/Schizoaffective disorder: Hyperlipidemia: Continue home statin regimen. Hypertension: Continue home regimen including atenolol, holding HCTZ and ACEI secondary to LUIS ANTONIO, PRN hydralazine. DVT Prophylaxis: eliquis. Microbiology Past 72 Hours 12/26/17 22:19 Urine Catheter - Catheter Urine Culture - Final Presumptive E. coli 12/27/17 06:20 Stool C. difficile DNA Amplification - Final 12/27/17 06:20 Stool Stool Occult Blood (DENISSE) - Final Laboratory Results 12/28/17 05:55: WBC 3.3 L, RBC 3.89 L, Hgb 10.9 L, Hct 32.6 L, MCV 83.8, MCH 28.0, MCHC 33.4, RDW 13.7, RDW Differential 41.9, Plt Count 110 L, MPV 11.4, Immature Gran % (Auto) 0.600, Neut % (Auto) 61.4, Lymph % (Auto) 20.4, [place] % (Auto) 16.1 H, Eos % (Auto) 1.2, Baso % (Auto) 0.3, Absolute Neuts (auto) 2.0, Absolute Lymphs (auto) 0.67 L, Total Counted Not Reportable 12/28/17 05:55: Sodium 139, Potassium 3.0 L, Chloride 106, Carbon Dioxide 22.0, Anion Gap 11, BUN 11, Creatinine 0.85, Estim Creat Clear Calc 110.97, Est GFR (MDRD) Af Amer 120, Est GFR (MDRD) Non-Af 99, BUN/Creatinine Ratio 12.9, Glucose 143 H, Calcium 7.9 L Code Visit Inpatient E&M: 52737 Subs Hosp L3
--- NOTE | 2017-12-28 09:03 | NURSING ---
Ileostomy appliance intact to the right lower abdomen. there is a small amount of liquid green/brown stool noted. appliance had been changed on 12/26/17 at the long term. appliance is typically changed every 3 days, so this nurse will plan to change the appliance tomorrow unless there is a leak or an issue today. patient is quite confused again today. therapy working with patient currently. therapist states that patient has been having difficulty staying focused.
[2017-12-28] MEDS: Tamsulosin HCl 0.4 MG Capsule PO (09:50)
[2017-12-28] MEDS: APIXABAN 5 MG TABLET PO ×2 (09:50→23:40)
[2017-12-28] MEDS: Atenolol 25 MG Tablet PO (09:51)
[2017-12-28] MEDS: Benztropine 2 MG Tablet 1 MG PO ×2 (09:52→23:40)
[2017-12-28] MEDS: 0.9% NaCl Peripheral Flush Adult/Peds IV (10:10)
[2017-12-28] MEDS: Ceftriaxone 1 GM/50 ML BAG IV (10:49)
--- NOTE | 2017-12-28 13:12 | CASEMGMT ---
Social Work Note Pt is listed as being from [facility]. SW in to speak with pt regarding discharge plans. Per previous notes pt has some confusion. Pt confirms that he is from [facility] and that he would like to return home at discharge with his mom. Pt gave this worker permission to call his mom Maryam. SW placed a call to to pt's mom Maryam. Maryam states that pt is to return to [facility] at discharge. Maryam states that once pt is discharged from [facility] she will transport pt to [facility]. OG placed a call to Chelsie at [facility] and per Chelsie pt has bed hold days and she will submit for pre-cert but pt is able to return to [facility] with or without pre-cert has pt has Medicaid bed hold days. OG faxed referral to Chelsie at [facility] and informed her to submit for pre-cert. Per Dr. Nieves pt could be ready for discharge tomorrow. Plan: Pt to return to [facility] when medically cleared Haylee Stevens ROLLER OPERATOR, ADVERTISING SOLICITOR
[2017-12-28] MEDS: Glucerna Shake 120 ML LIQUID PO ×2 (14:30→18:19)
[2017-12-28] MEDS: Montelukast 10 MG Tablet PO (23:39)
[2017-12-29 03:15] VITALS: BP 135/94; PULSE 75; RESP 18; TEMP 36.6; O2SAT 96
[2017-12-29 06:32] LABS: Anion Gap 12 (5-15); BUN 8 mg/dL (7-18); Calcium,Total 8.3 mg/dL (8.5-10.1); Chloride 107 mmol/L (98-107); Creatinine, Serum 0.66 mg/dL (0.70-1.30); EST Glomerular Filtration Rate 132 mL/min (>60); Est Glom Filt Rate - Afr Amer 159 mL/min (>60); Estimated Creatinine Clearance 142.92 ml/min; Glucose 152 mg/dL (74-106); Potassium 3.3 mmol/L (3.5-5.1); Sodium Level 141 mmol/L (136-145)
[2017-12-29 08:45] LABS: Vitamin B12 613 pg/mL (211-911)
--- NOTE | 2017-12-29 08:46 | NURSING ---
Ileostomy appliance leaking. removed appliance. stoma is well budded, moist, and beefy red. stoma measures approx 1 and is slightly oval in shape. peristomal skin is intact. cleansed with Dial soap and water. pat dry. applied a 2 piece convex [place] appliance with an Isaak ring. Pt tolerated well. patient may possibly return to the [facility] today.
[2017-12-29 10:00] VITALS: BP 140/94; PULSE 80; RESP 16; TEMP 36.8; O2SAT 97
[2017-12-29] MEDS: APIXABAN 5 MG TABLET PO (10:08)
[2017-12-29] MEDS: Benztropine 2 MG Tablet 1 MG PO (10:08)
[2017-12-29] MEDS: Atenolol 25 MG Tablet PO (10:09)
[2017-12-29] MEDS: Lisinopril 2.5 MG Tablet PO (10:11)
[2017-12-29] MEDS: Tamsulosin HCl 0.4 MG Capsule 0.8 MG PO (10:11)
[2017-12-29 10:23] VITALS: O2SAT 95
--- NOTE | 2017-12-29 11:08 | PCM.TXEXTCAR ---
- Routine Orders/Code Status Suppository Type: Dulcolax 10mg Suppository Frequency: Daily PRN Routine Lab Work: BMP - On 12/31/2017, - - Serum magnesium on 12/31/2017 - Therapies Physical Therapy: Eval and Treat Occupational Therapy: Eval and Treat - Allergies/Procedures Done in Hospital Allergies/Adverse Reactions: Allergies No Known Allergies Allergy (Verified 11/13/17 18:10) - Type of Care/Length of Stay Estimated LOS: Convalescent Care Less Than 30 days Type of Care Needed: Skilled Rehab Potential: Good Prognosis: Good - Additional Orders/Day of Discharge Additional Orders: Patient needs to follow with a psychiatrist to decrease the dose of Ativan and make it as needed as he has side effects including increased sedation, lethargic is, abnormal dreams, agitation Day of Discharge: 12/29/17 - Dietary and Speech Recommendations Dietitian Recommendations/Changes: Rec consider diet change to cardiac/low cholesterol, CHO controlled, high fiber. Will add Glucerna Shake on medpass for increased calories and protein if consumed. - Follow Up Care Primary Care Physician: Mohan Christianson MD [Primary Care Provider] - Please follow up with your Primary Care Physician in: IN 2 weeks
--- NOTE | 2017-12-29 11:11 | PCM.DC.SUM ---
Discharge Date and Diagnosis Date of Admission: 12/26/17 Date of Discharge: 12/29/17 - Primary Discharge Diagnosis Active and Suspected Problems 1. Sepsis (fever, tachypnea, tachycardia secondary to E. coli UTI) but normal lactic acid: Patient is being admitted on regular floor. UA shows pyuria, WBC more than 100 with leukocyte esterase H, nitrite negative but no hematuria. Prelim urine culture shows E. coli more than 100,000. Patient is on IV ceftriaxone. IV fluid normal saline. Monitor intake and output. E. coli sensitive to ceftriaxone. The patient is discharged on cefadroxil for 5 more days. 2. Acute kidney injury probably from combination of prerenal/UTI/postobstructive secondary to BPH; resolved: 3. Urology conditions: Probably BPH and neurogenic bladder probably induced from multiple antipsychotic medications: 4. Altered mental status/acute encephalopathy probably from UTI and Ativan/polypharmacy: Resolved - Secondary Discharge Diagnosis Chronic Problems Pulmonary embolism (Chronic) S/P ileostomy (Chronic) HTN (hypertension) (Chronic) Diabetes mellitus (Chronic) HLD (hyperlipidemia) (Chronic) Schizoaffective disorder (Chronic) Nicotine abuse (Chronic) Hospital Course and Treatment Operations: None Summary of Care Provided: [ This is a 57-year-old gentleman with history of Diabetes mellitus type II, HTN, HLD, Tobacco use history, Anxiety and Depression/Schizoaffective disorder on multiple antipsychotic medications and Ativan, GERD, Recent 11/13/17 admission due to acute Pulmonary Embolism, s/p colon resection and ileostomy secondary to severe chronic constipation, complications of high-output ileostomy fistula and LUIS ANTONIO was admitted on 01-11 with increased lethargy, confusion, disorientation and fatigue with generalized weakness for last 2 days. Seen and examined today She is more awake and alert and able to answer simple questions. He has mild anxiety and asking for Ativan. General: Alert, Oriented x3, Cooperative HEENT: Atraumatic, PERRLA, EOMI, Normocephalic Neck: Supple, No JVD, Negative Carotid Bruits Lungs: Clear to auscultation, Normal air movement Cardiovascular: Regular rate, Normal S1, Normal S2, No murmurs Abdomen: Bowel Sounds Present, Soft, Non Tender, Non-Distended, -Moreno catheter discontinued yesterday. Spontaneously voided urine Extremities: No edema, Capillary Refill Less than 3 Seconds Skin: No rashes, No breakdown Musculoskeletal: No Tenderness to Palpation of Joints or Extremities, Arthritic Changes Neurological: Cranial nerves II-XII grossly intact, Neuro grossly intact Psych/Mental Status: Anxious 1. Sepsis (fever, tachypnea, tachycardia secondary to E. coli UTI) but normal lactic acid: Patient is being admitted on regular floor. UA shows pyuria, WBC more than 100 with leukocyte esterase H, nitrite negative but no hematuria. Prelim urine culture shows E. coli more than 100,000. Patient is on IV ceftriaxone. IV fluid normal saline. Monitor intake and output. E. coli sensitive to ceftriaxone. The patient is discharged on cefadroxil for 5 more days. 2. Acute kidney injury probably from combination of prerenal/UTI/postobstructive secondary to BPH; resolved: Patient has high output ileostomy fistula. Treat the underlying cause. Ultrasound kidneys and bladder. On Flomax. Postvoid on bladder scan has been 450 ml and 500 mL on 2 occasions. Creatinine is back to baseline 0.8 mg/dL. Moreno catheter was discontinued. Patient voided urine spontaneously. 3. Urology conditions: Probably BPH and neurogenic bladder probably induced from multiple antipsychotic medications: Flomax increased to 0.[address] Skinner ordered removal of Moreno catheter and a spontaneous voiding trials. Rest as above mentioned. 4. Electrolyte imbalance: Hypotonic hypovolemic hyponatremia secondary to high output ileostomy fistula. Monitor sodium. Magnesium 2.0. Sodium is corrected. K3.0 on replacement. Discontinue IV fluid normal saline 5. Anemia of chronic disease AND Thrombocytopenia: Iron profile shows iron 16, TIBC 258, on the low normal range; ferritin 467; iron profile suggestive of anemia of chronic disease. Stool for guaiac test is negative. Folate normal. (6) Recent Pulmonary Embolism: Continue Eliquis regimen. (7) Diabetes mellitus type II: Hold oral home regimen, ADA diet, accu checks w/ ISS. (8) altered mental status/acute encephalopathy secondary to high-dose of Ativan: Patient got much better after Ativan dose was lowered and make as needed 1 mg every 4 hourly. Patient was advised to take it only when needed for anxiety. Advised to follow-up with psychiatrist to decrease the dose. Anxiety and Depression/Schizoaffective disorder: Continue perphenazine and clozapine and Cogentin. Hyperlipidemia: Continue home statin regimen. Hypertension: Continue home regimen including atenolol, holding HCTZ and ACEI secondary to LUIS ANTONIO, PRN hydralazine. DVT Prophylaxis: eliquis. Discharge medication reconciliation done. Discharge follow-up instructions completed. Total time spent, exact 35 minutes on discharge meds reconciliation, examination, review of imaging and blood test and discussion with the patient on follow-up instructions. Home Medications: Medications to take at Discharge Atenolol [Tenormin (beta vineet)] 25 mg PO DAILY 02/15/15 Clozapine [Clozaril] 100 mg PO BID 02/15/15 Lovastatin [Mevacor] 20 mg PO QHS 02/15/15 Benztropine [Cogentin] 1 mg PO BID 11/05/17 Sitagliptin Phos/Metformin HCl [Janumet Xr 50-1,000 mg Tablet] 1 tablet PO DAILY #1 tablet 11/07/17 Magnesium Oxide [Magnesium] 400 mg PO DAILY 11/13/17 Montelukast [Singulair] 10 mg PO QHS 11/14/17 Perphenazine 8 mg PO 4X/DAY 11/14/17 Loperamide [Imodium] 2 mg PO Q4H #60 cap 11/16/17 Acetaminophen [Tylenol Suppository] 650 mg RECTAL Q4H PRN PRN 12/27/17 Apixaban [Eliquis] 5 mg PO BID 12/27/17 Cefadroxil [Duricef] 500 mg PO BID #10 cap 12/29/17 Hydrochlorothiazide 25 mg PO DAILY #0 12/29/17 Lisinopril [Zestril] 5 mg PO DAILY #0 12/29/17 Lorazepam [Ativan] 1 mg PO BID #0 12/29/17 Potassium Chloride [Klor-Con M20] 40 meq PO BID #0 12/29/17 Tamsulosin HCl [Flomax] 0.8 mg PO DAILY #30 cap 12/29/17 Following Prescrptions Were Given to Patient: Tamsulosin HCl [Flomax] 0.8 mg PO DAILY #30 cap Cefadroxil [Duricef] 500 mg PO BID #10 cap Primary Care Physician: Mohan Christianson MD [Primary Care Provider] - Please follow up with your Primary Care Physician in: IN 2 weeks Medical Necessity - Tobacco Use Smoking Status: Never smoker Tobacco Use: Non-smoker Meaningful Use Info Meaningful Use Diagnoses (Choose all that apply): None applicable Code Visit Inpatient E&M: 54055 Disch Hosp
--- NOTE | 2017-12-29 11:47 | NURSING ---
still awaiting 1000 dose of duricef for pt from Rx
[2017-12-29] MEDS: Cefadroxil 500 MG CAPSULE PO (12:02)
--- NOTE | 2017-12-29 13:04 | CASEMGMT ---
Social Work Note Pt is being discharged today. Pt is able to discharge to [facility] today. OG placed a call to Yelena at [facility] and left her a message stating that pt is being discharged today. Per previous conversations with Chelsie at [facility] pt has bed hold days and is able to return to [facility] without pre-cert. OG faxed discharge paperwork to [facility] including transfer to extended care facility, signed medication list and any scripts. [facility] in SNF and copy on pt's chart. Per previous conversation with pt's mom Maryam she is transporting pt back to [facility]. STANLEY Terry states that pt's mom is present in room and confirms that she is transporting pt. HENS is not needed to be completed as pt came from skilled at [facility] and is returning to [facility]. Plan: Pt to discharge to [facility] today under skilled with pt's mom transporting via family vehicle. Haylee Stevens PRODUCT DESIGNER, DAIRY PRODUCTS MAKER
== END 2017-12-29 14:06 | disposition skilled nursing facility (03) | DRG 871 ==
LOC: ED 22:16 → MS3 23:36
PROVIDERS: Admitting Provider Family Medicine; Emergency Provider Emergency Medicine; Family Provider Family Medicine; PCP Family Medicine; Visit Provider Internal Medicine
DX: A41.51 Sepsis due to Escherichia coli [E. coli] (principal); G93.40 Encephalopathy, unspecified; E87.1 Hypo-osmolality and hyponatremia; N17.9 Acute kidney failure, unspecified; E11.9 Type 2 diabetes mellitus without complications; E78.5 Hyperlipidemia, unspecified; I10 Essential (primary) hypertension; Z79.899 Other long term (current) drug therapy; Z93.2 Ileostomy status; F25.9 Schizoaffective disorder, unspecified; Z79.84 Long term (current) use of oral hypoglycemic drugs; Z90.49 Acquired absence of other specified parts of digestive tract; D69.6 Thrombocytopenia, unspecified; D63.8 Anemia in other chronic diseases classified elsewhere; F41.9 Anxiety disorder, unspecified; F32.9 Major depressive disorder, single episode, unspecified; N31.9 Neuromuscular dysfunction of bladder, unspecified; Z79.01 Long term (current) use of anticoagulants; Z86.711 Personal history of pulmonary embolism; Z87.891 Personal history of nicotine dependence; N40.1 Benign prostatic hyperplasia with lower urinary tract symptoms
CPT/HCPCS: 36415; 71045; 76770; 80048; 80053; 81001; 82274; 82607; 82728; 82746; 82962; 83036; 83540; 83550; 83605; 83735; 85025; 85610; 85730; 87040; 87086; 87088; 87186; 87493; 93005; 94640; 97110; 97116; 97162; 97166; 97530; 97802; 99285; J7030; A4216

== ENCOUNTER 2018-01-21 12:36 | Outpatient (RCR) | payer MEDICARE, SELFPAY ==
[2018-01-21 13:53] LABS: Absolute Neutrophil Count 2.5 X10^3/uL (2.0-7.7); Basophil# 0.03 X10^3/uL; Basophil% 0.7 % (0-1); Eosinophil# 0.09 X10^3/uL; Eosinophils% 2.1 % (0-5); Hematocrit 43.6 % (40-54); Hemoglobin 14.9 g/dl (13.0-16.5); Lymphocyte % 28.3 % (19-41); Mean Corp Hgb Conc 34.2 g/gl (32-36); Mean Corpuscular Hgb 28.5 pg (27.0-32.0); Mean Corpuscular Volume 83.5 fL (80-94); Mean Platelet Vol. 10.6 fl (6.2-12.0); Monocyte# 0.43 X10^3/uL; Monocyte% 10.1 % (0-10); Neutrophil # 2.48 X10^3/uL (2.7-7.7); Neutrophil % 58.6 % (47-70); Platelet Count 162 K/mm3 (150-450); RBC Distribution Width CV 13.3 % (11.6-14.6); RBC Distribution Width SD 40.4 fl (35.1-43.9); Red Blood Count 5.22 M/mm3 (4.6-6.2); White Blood Count 4.2 K/mm3 (4.4-11.0)
[2018-01-21 13:56] LABS: POSITIVE COUNT NO; POSITIVE DIFFERENTIAL NO; POSITIVE MORPHOLOGY NO
== END 2018-01-21 14:00 | disposition home or self-care (01) ==
LOC: MTLAB 12:36
PROVIDERS: Family Provider Family Medicine; PCP Family Medicine; Referring Provider Psychiatry & Neurology Psychiatry; Visit Provider Psychiatry & Neurology Psychiatry
DX: Z79.899 Other long term (current) drug therapy (principal); F19.10 Other psychoactive substance abuse, uncomplicated; R53.83 Other fatigue
CPT/HCPCS: 36415; 85025

== ENCOUNTER 2018-02-07 11:00 | Outpatient (RCR) | payer MEDICARE, SELFPAY ==
--- NOTE | 2018-01-10 13:23 | HP.PTEVAL_ITS ---
Patient's Visit Information FAITH PERALTA is a 57 year old M referred to Physical Therapy by ANNE GONZALEZ with a diagnosis of ileostomy in place, constipation. Date of Evaluation: 01/10/18 Physical Therapist: Toño Ramos DPT, OC - Visit Plan Frequency: 2-3x /Week Duration: 4-6 Weeks Plan: 2-3x/week for 4-6 for ... 1. LE adn UE machines in gym to I taking care with ileostomy. Care with R knee OA adn L shoulder dysfunction from over a decade ago(RC?). 2. isometric core strength to I. 3. stretch hip flexors/ quads/ pecs/ hamstrings and lats to I. 4. TM vs, bike, vs ellitpical for CV. 5. Patient is already a member of [employer] and used to wroout prior to this surgery, wishes to get back to that. I showed him kegels today 5 sec 10x 3 sets but no complaints outside of ieleostomy management which he is working on at the [facility]. - Subjective Subjective: Usedto do his own workout. Had ileostomy on October 25 due to constipation problems and it will be removed in 6 weeks. No pa in. Just hasn' t been working out and wants to get back to it. Was doing TM and upper body strength machines. Did a couple leg machines too. Needs to get back to those slow and easy and is concerned. Hasn't worked out since October 13. Sleep is OK, awake at times due to ileostomy but not painful. Feels like balance is good. 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 Lives at [facility] due to ileostomy. Lives at home with mom and step dad when healthy. Steps when living there make him winded. Enjoys listening to music for fun and working out. Basic ADLs are good. Was doing balance and walking with PT at [facility] but discharged this am. - Objective previous R knee surgery adn L shoulder dislocation limits motion at these joints. Hsn't lifted should in last 10 years. Walks I, trasnfers chair and bed I without UE to stand. Steps are reciprocal with one rail. Balance appears good. UE AROM WFL on right and L is limited in elevation to 90 and PROM to 110 limited by pain. No active ext rotation on L, full on R. Strength elevation 3- R and 4 on L, ext rotation 1 on L and 4 on R, int rotation 4 on R and 3+ on L. Bi and triceps 4 B. Pecs and lats B tight. LE aROM WFL, very tight in HS and hip flexors B and quad mod tight. reflexes 2/3 patella and achilles and biceps and triceps. Sensation in UE and LE to gross light touch WNL. Pt came from bathroom and had drainage from ileostomy on front of pants and shirt today. Carol Shoemaker for HEP - Balance Scores Functional Gait Assessment Score: 27 % Disability: 10.0000 - Goals Goal 1:: Back to I workout in gym without pain or ileostomy concerns Goal Time Frame: 4-6 Weeks Goal 2:: Patient feel 100%back to normal activiity Goal Time Frame: 4-6 Weeks - Rehabilitation Potential Physical Therapy Diagnosis: weakness adn lack of fitness from recent surgery. Rehabilitation Potential: Fair - Anticipated Interventions Patient/Client Instruction: Educate patient on: Condition, Plan of Care For the Purpose of:: To improve muscle performance and motor function, To increase tolerance to activity/condition/position Therapeutic Exercise to Include: Strength training, Flexibilty training For the Purpose of:: To improve muscle performance and motor function, To increase tolerance to activity/condition/position, To improve ability of physical actions for home/community/work/leisure Thank you for the opportunity to evaluate your patient. For Medicare and Medicare HMO plans, please review the plan of care and approve it. It will need to be FAXED BACK to us at [phone] for Medicare purposes. Please let me know if there are questions or concerns regarding this plan of care. Physician Signature: Date:
--- NOTE | 2018-04-08 14:36 | HP.PT.NRP ---
HP - Discharge Summary (1) - Patient Information FAITH PERALTA was seen in my office for initial evaluation on 01/10/18. The following Plan of Care was established for this patient: Initial Frequency: 2-3x /Week Initial Duration: 4-6 Weeks - Anticipated Interventions Patient/Client Instruction: Educate patient on: Condition, Plan of Care For the Purpose of:: To improve muscle performance and motor function, To increase tolerance to activity/condition/position Therapeutic Exercise to Include: Strength training, Flexibilty training For the Purpose of:: To improve muscle performance and motor function, To increase tolerance to activity/condition/position, To improve ability of physical actions for home/community/work/leisure This patient was last seen in our office 02/07/18. Pertinent comments regarding their Physical therapy will appear below: Pt seen 9 visits adn was 90% better. Was to f/u 2 weeks later to ensure improvement but did not schedule or attend. At this point, it has been over 2 months and I will discontinue due to nonattendance. At this point I will be discontinuing this patient from physical therapy. I would be happy to see this patient again in the future if found appropriate by the physician. Thank you! Toño Ramos, DPT, OCS, CSCS
== END 2018-02-07 19:00 | disposition home or self-care (01) ==
LOC: PT 11:00
PROVIDERS: Family Provider Family Medicine; PCP Family Medicine
DX: K59.01 Slow transit constipation (principal); K59.02 Outlet dysfunction constipation; M62.89 Other specified disorders of muscle; Z93.2 Ileostomy status
CPT/HCPCS: 97110; 97162; 97530

== ENCOUNTER 2018-02-21 10:13 | Outpatient (RCR) | payer MEDICARE, SELFPAY ==
[2018-02-21 11:58] LABS: Absolute Lymphocyte Count 1.16 X10^3/ul (0.83-4.51); Absolute Neutrophil Count 2.8 X10^3/uL (2.0-7.7); Basophil# 0.02 X10^3/uL; Basophil% 0.4 % (0-1); Eosinophil# 0.07 X10^3/uL; Eosinophils% 1.5 % (0-5); Hemoglobin 14.5 g/dl (13.0-16.5); Lymphocyte # 1.16 X10^3/ul (4.0); Lymphocyte % 24.8 % (19-41); Mean Corp Hgb Conc 33.7 g/gl (32-36); Mean Platelet Vol. 11.3 fl (6.2-12.0); Monocyte% 12.8 % (0-10); Neutrophil # 2.81 X10^3/uL (2.7-7.7); Neutrophil % 60.3 % (47-70); Platelet Count 187 K/mm3 (150-450); RBC Distribution Width CV 13.1 % (11.6-14.6); RBC Distribution Width SD 39.2 fl (35.1-43.9); Red Blood Count 5.18 M/mm3 (4.6-6.2); White Blood Count 4.7 K/mm3 (4.4-11.0)
[2018-02-21 12:09] LABS: POSITIVE COUNT NO; POSITIVE DIFFERENTIAL NO; POSITIVE MORPHOLOGY NO
== END 2018-02-21 12:00 | disposition home or self-care (01) ==
LOC: MTLAB 10:13
PROVIDERS: Family Provider Family Medicine; PCP Family Medicine; Referring Provider Psychiatry & Neurology Psychiatry; Visit Provider Psychiatry & Neurology Psychiatry
DX: Z79.899 Other long term (current) drug therapy (principal)
CPT/HCPCS: 36415; 85025

== ENCOUNTER 2018-03-22 10:51 | Outpatient (RCR) | payer MEDICARE, SELFPAY ==
[2018-03-22 12:25] LABS: Absolute Lymphocyte Count 1.37 X10^3/ul (0.83-4.51); Absolute Neutrophil Count 3.4 X10^3/uL (2.0-7.7); Basophil# 0.01 X10^3/uL; Basophil% 0.2 % (0-1); Eosinophil# 0.09 X10^3/uL; Eosinophils% 1.7 % (0-5); Hematocrit 44.3 % (40-54); Lymphocyte # 1.37 X10^3/ul (4.0); Lymphocyte % 25.2 % (19-41); Mean Corp Hgb Conc 33.9 g/gl (32-36); Mean Corpuscular Hgb 27.6 pg (27.0-32.0); Mean Corpuscular Volume 81.6 fL (80-94); Mean Platelet Vol. 10.6 fl (6.2-12.0); Monocyte# 0.53 X10^3/uL; Monocyte% 9.7 % (0-10); Neutrophil # 3.44 X10^3/uL (2.7-7.7); Neutrophil % 63.2 % (47-70); Platelet Count 167 K/mm3 (150-450); RBC Distribution Width CV 13.1 % (11.6-14.6); RBC Distribution Width SD 39.1 fl (35.1-43.9); Red Blood Count 5.43 M/mm3 (4.6-6.2); White Blood Count 5.4 K/mm3 (4.4-11.0)
[2018-03-22 12:44] LABS: POSITIVE COUNT NO; POSITIVE DIFFERENTIAL NO; POSITIVE MORPHOLOGY NO
--- OUTSIDE RECORDS SUMMARY | 2018-05-04 02:37 | XMS RPT_ITS ---
:1960 Author Organization [place] Support Name Relationship Address Phone D Unavailable Unavailable Unavailable MAYDA, MARYAM Unavailable [address] + [place] [address] AZAM WHITAKER Unavailable [address] + [place] [address] D Unavailable Unavailable Unavailable MAYDA, MARYAM Unavailable [address] + [place] [address] AZAM WHITAKER Unavailable [address] + [place] [address] D Unavailable Unavailable Unavailable MAYDA, MARYAM Unavailable [address] + [place] [address] AZAM WHITAKER Unavailable [address] + [place] [address] D Unavailable Unavailable Unavailable MAYDA, MARYAM Unavailable [address] + [place] [address] AZAM WHITAKER Unavailable [address] + [place] [address] D Unavailable Unavailable Unavailable MAYDA, MARYAM Unavailable [address] + [place] [address] AZAM WHITAKER Unavailable [address] + [place] [address] D Unavailable Unavailable Unavailable MAYDA, MARYAM Unavailable [address] + [place] [address] AZAM WHITAKER Unavailable [address] + [place] [address] D Unavailable Unavailable Unavailable MAYDA MARYAM Unavailable [address] + [place] [address] AZAM WHITAKER Unavailable [address] + [place] [address] D Unavailable Unavailable Unavailable MAYDA MARYAM Unavailable [address] + [place] [address] AZAM WHITAKER Unavailable [address] + [place] [address] D Unavailable Unavailable Unavailable MAYDA MARYAM Unavailable [address] + [place] [address] AZAM WHITAKER Unavailable [address] + [place] [address] D Unavailable Unavailable Unavailable MAYDA MARYAM Unavailable [address] + [place] [address] AZAM WHITAKER Unavailable [address] + [place] [address] D Unavailable Unavailable Unavailable NARENDRA WHITAKERCEE Unavailable [address] + [place] [address] AZAM WHITAKER Unavailable [address] + [place] [address] D Unavailable Unavailable Unavailable MAYDA MARYAM Unavailable [address] + [place] [address] AZAM WHITAKER Unavailable [address] + [place] [address] D Unavailable Unavailable Unavailable MAYDA, MARYAM Unavailable [address] + [place] [address] AZAM WHITAKER Unavailable [address] + [place] [address] D Unavailable Unavailable Unavailable MAYDA, MARYAM Unavailable [address] + [place] [address] AZAM WHITAKER Unavailable [address] + [place] [address] D Unavailable Unavailable Unavailable MAYDA, MARYAM Unavailable [address] + [place] [address] AZAM WHITAKER Unavailable [address] + [place] [address] D Unavailable Unavailable Unavailable MAYDA, MARYAM Unavailable [address] + [place] [address] AZAM WHITAKER Unavailable [address] + [place] [address] D Unavailable Unavailable Unavailable MAYDA, MARYAM Unavailable [address] + [place] [address] AZAM WHITAKER Unavailable [address] + [place] [address] D Unavailable Unavailable Unavailable MAYDA, MARYAM Unavailable [address] + [place] [address] AZAM WHITAKER Unavailable [address] + [place] [address] D Unavailable Unavailable Unavailable MAYDA, MARYAM Unavailable [address] + [place] [address] AZAM WHITAKER Unavailable [address] + [place] [address] D Unavailable Unavailable Unavailable MAYDA MARYAM Unavailable [address] + [place] [address] AZAM WHITAKER Unavailable [address] + [place] [address] D Unavailable Unavailable Unavailable MAYDA, MARYAM Unavailable [address] + [place] [address] AZAM WHITAKER Unavailable [address] + [place] [address] D Unavailable Unavailable Unavailable MAYDA, MARYAM Unavailable [address] + [place] [address] AZAM WHITAKER Unavailable [address] + [place] [address] D Unavailable Unavailable Unavailable MAYDA, MARYAM Unavailable [address] + [place] [address] AZAM WHITAKER Unavailable [address] + [place] [address] D Unavailable Unavailable Unavailable MAYDA MARYAM Unavailable [address] + [place] [address] AZAM WHITAKER Unavailable [address] + [place] [address] D Unavailable Unavailable Unavailable MAYDA MARYAM Unavailable [address] + [place] [address] AZAM WHITAKER Unavailable [address] + [place] [address] D Unavailable Unavailable Unavailable NARENDRA WHITAKERCEE Unavailable [address] + [place] [address] AZAM WHITAKER Unavailable [address] + [place] [address] D Unavailable Unavailable Unavailable NARENDRA WHITAKERCEE Unavailable [address] + [place] [address] AZAM WHITAKER Unavailable [address] + [place] [address] D Unavailable Unavailable Unavailable MAYDA, MARYAM Unavailable [address] + [place] [address] AZAM WHITAKER Unavailable [address] + [place] [address] D Unavailable Unavailable Unavailable MAYDA, MARYAM Unavailable [address] + [place] [address] AZAM WHITAKER Unavailable [address] + [place] [address] D Unavailable Unavailable Unavailable MAYDA, MARYAM Unavailable [address] + [place] [address] AZAM WHITAKER Unavailable [address] + [place] [address] D Unavailable Unavailable Unavailable MAYDANARENDRAMARYAM Unavailable [address] + [place] [address] AZAM WHITAKER Unavailable [address] + [place] [address] D Unavailable Unavailable Unavailable MAYDANARENDRAMARYAM Unavailable [address] + [place] [address] AZAM WHITAKER Unavailable [address] + [place] [address] D Unavailable Unavailable Unavailable MAYDANARENDRAMARYAM Unavailable [address] + [place] [address] AZAM WHITAKER Unavailable [address] + [place] [address] Care Team Providers Name Role Phone JONO FOWLERY M Referring Unavailable MALCOLM, ANNE M Referring Unavailable MALCOLM, ANNE M Referring Unavailable MALCOLM, ANNE M Attending Unavailable KELTON SMITH ([facility]) Referring Unavailable KELTON SMITH ([facility]) Attending Unavailable VELMA NULL ([facility]) Attending Unavailable KAY UMANZOR Referring Unavailable MALCOLM, ANNE M Attending Unavailable MALCOLM, ANNE M Referring Unavailable MALCOLM, ANNE M Referring Unavailable MALCOLM, ANNE M Referring Unavailable MALCOLM, ANNE M Referring Unavailable MALCOLM, ANNE M Referring Unavailable MALCOLM, ANNE M Attending Unavailable MACKENZIE TEJEDA Referring Unavailable MALCOLM, ANNE M Referring Unavailable MACHELLE, NADIR Referring Unavailable AUNDREA ZACARIAS Referring Unavailable MACHELLE, NADIR Referring Unavailable MALCOLM, ANNE M Referring Unavailable MALCOLM, ANNE M Referring Unavailable AUNDREA ZACARIAS Attending Unavailable MALCOLM, ANNE M Referring Unavailable MALCOLM, ANNE M Attending Unavailable MALCOLM, ANNE M Referring Unavailable GEETA SPARKS (PT) Attending Unavailable MALCOLM, ANNE M Referring Unavailable MALCOLM, ANNE M Admitting Unavailable MALCOLM, ANNE M Attending Unavailable AUNDREA ZACARIAS Referring Unavailable MALCOLM, ANNE M Referring Unavailable DOCTOR, OUT OF TOWN Attending Unavailable Lao, Nukala R. Referring Unavailable [facility] Care Unavailable Lao, Joikaidris R. Attending Unavailable Lao, Nukala R. Attending Unavailable Lao, Nukala R. Referring Unavailable [facility] Care Unavailable Lao, Joikaidris R. Attending Unavailable Lao, Nukala R. Referring Unavailable [facility] Care Unavailable Lao, Joikala R. Attending Unavailable Lao, Nukala R. Referring Unavailable [facility] Care Unavailable Lao, Joikaidris R. Attending Unavailable Lao, Nukala R. Referring Unavailable [facility] Care Unavailable Lao, Nukala R. Attending Unavailable Lao, Nukala R. Referring Unavailable [facility] Care Unavailable Lao, Joikaidris R. Attending Unavailable Lao, Nukala R. Referring Unavailable [facility] Care Unavailable [facility] Unavailable Paintsil, Troy Admitting Unavailable Erna, Kay Consulting Unavailable Travis, Rubin Attending Unavailable Paintsil, Troy Admitting Unavailable [facility] Care Unavailable Erna, Kay Consulting Unavailable Paintsil, Troy Attending Unavailable Paintsil, Troy Consulting Unavailable Paintsil, Troy Admitting Unavailable Carter Butlery Attending Unavailable [facility] Care Unavailable Erna, Kay Consulting Unavailable Tereletsky, Rubin Referring Unavailable Tereletsky, Rubin Consulting Unavailable Paintsil, Troy Admitting Unavailable LukeCarter robinsy Attending Unavailable [facility] Care Unavailable Erna, Kay Consulting Unavailable Tereletsky, Rubin Consulting Unavailable Paintsil, Troy Admitting Unavailable Luke Shane Attending Unavailable [facility] Care Unavailable Erna, Kay Consulting Unavailable Tereletsky, Rubin Consulting Unavailable [facility] Care Unavailable Mery, Gael Admitting Unavailable Paintsil, Troy Attending Unavailable Erna, Kay Consulting Unavailable Debra, Wardkajennifer Consulting Unavailable Mery, Gael Admitting Unavailable [facility] Care Unavailable Mery, Gael Consulting Unavailable Nadir Jackson Attending Unavailable Mery, Gael Admitting Unavailable Ranney, Christopher Primary Care Unavailable Erna, Kay Consulting Unavailable Paintsil, Troy Attending Unavailable Paintsil, Troy Consulting Unavailable Mery, Gael Admitting Unavailable [facility] Primary Care Unavailable Erna, Kay Consulting Unavailable Paintsil, Troy Attending Unavailable Debra, Jayaprakash Consulting Unavailable Paintsil, Troy Consulting Unavailable Mery, Gael Admitting Unavailable Katy Ocampo NP-C Attending Unavailable [facility] Care Unavailable Erna, Kay Consulting Unavailable Debra, Jayaprakash Consulting Unavailable Paintsil, Troy Consulting Unavailable Paintsil, Troy Attending Unavailable Mery, Gael Admitting Unavailable [facility] Primary Care Unavailable Erna, Kay Consulting Unavailable Debra, Jayaprakash Consulting Unavailable Paintsil, Troy Consulting Unavailable Kyree Lao Attending Unavailable Kyree Lao Referring Unavailable Christianson, Mohan Primary Care Unavailable Oleksandr Avina Attending Unavailable Astreika, Vera Attending Unavailable Astreika, Vera Referring Unavailable [facility] Primary Care Unavailable Christianson, Mohan Primary Care Unavailable White, Carlie Admitting Unavailable Ezequiel, Giancarlo Attending Unavailable Susanne, Stephen Consulting Unavailable White, Carlie Admitting Unavailable White, Carlie Attending Unavailable Christianson, Mohan Primary Care Unavailable White, Carlie Consulting Unavailable White, Carlie Admitting Unavailable Ezequiel, Giancarlo Attending Unavailable Christianson, Mohan Primary Care Unavailable Ezequiel, Giancarlo Consulting Unavailable White, Carlie Admitting Unavailable Ezequiel, Giacnarlo Attending Unavailable Christianson, Mohan Primary Care Unavailable Susanne, Stephen Consulting Unavailable Ezequiel, Giancarlo Consulting Unavailable White, Carlie Admitting Unavailable Ezequiel, Giancarlo Attending Unavailable Christianson, Mohan Primary Care Unavailable Susanne, Stephen Consulting Unavailable Ezequiel, Giancarlo Consulting Unavailable Kwasi Aparicio Attending Unavailable Travis, Rubin Referring Unavailable NORA LOCK Attending Unavailable NORA LOCK Referring Unavailable Christianson, Mohan Primary Care Unavailable NORA LOCK Consulting Unavailable Astreika, Vera Attending Unavailable Christianson, Mohan Primary Care Unavailable Christianson, Mohan Primary Care Unavailable Astreika, Vera Attending Unavailable Astreika, Vera Referring Unavailable Astreika, Vera Attending Unavailable Astreika, Vera Referring Unavailable Christianson, Mohan Primary Care Unavailable Astreika, Vera Attending Unavailable Astreika, Vera Referring Unavailable Mohan Christianson Primary Care Unavailable PROBLEMS PROBLEMS DATE TYPE CONDITION / CODE ATTENDING STATUS SOURCE 03/29/2018 Unknown Z79.899 - Other Martha Wang Active [facility] Community drug therapy / Hospital Z79.899(ICD-10) Repository 02/07/2018 Unknown K59.01 - Slow NORA LOCK Active [place] [facility] constipation / Hospital K59.01(ICD-10) Repository 12/29/2017 Unknown J98.9 - Respiratory Cebul, Kwasi Active [place] disorder, Community unspecified / Hospital J98.9(ICD-10) Repository 10/21/2017 Active Encounter for other NA Active [facility] preprocedural [place] examination / Repository Z01.818(ICD-10) 10/21/2017 Active Other emphysema / NA Active [facility] J43.8(ICD-10) [place] Repository 08/12/2016 Active Hemorrhage of anus NA Active [facility] and rectum / [facility] [place] K62.5(ICD-10) Repository 04/02/2015 Active Essential (primary) NA Active [facility] hypertension / [facility] [place] I10(ICD-10) Repository 08/12/2016 Active Constipation, NA Active [facility] unspecified / [facility] [place] K59.00(ICD-10) Repository 10/21/2017 Active Other fatigue / NA Active [facility] R53.83(ICD-10) [facility] [place] Repository 04/06/2017 Active Other specified NA Active [facility] disorders of muscle [facility] [place] / M62.89(ICD-10) Repository 03/04/2017 Active Outlet dysfunction NA Active [facility] constipation / [facility] [place] K59.02(ICD-10) Repository 07/26/2017 Unknown E11.9 - Type 2 Lao, Nukala Active [place] diabetes mellitus R. Community without Hospital complications / Repository E11.9(ICD-10) 07/26/2017 Unknown 250.00 - Diabetes Lao, Nukala Active [place] mellitus without R. Community mention of Hospital complication, type Repository II or unspecified type, not stated as uncontrolled / 250.00(ICD-9) 05/21/2017 Active Unknown / NA Active [facility] UNK(Unknown) [place] Repository 05/27/2017 Unknown E25.9 - Lao, Nukala Active [place] [facility] unspecified / Repository E25.9(ICD-10) PROCEDURES PROCEDURES No Procedure Records FoundRESULTS RESULTS CBC W/DIFF, AUTOMATED Collected: 03/22/2018 Status: F Source: [place] 10:54 AM [facility] [place] REPOSITORY TYPE CODE TESTS RESULT OUT OF RANGE REFERENCE UNITS LAB L100.1000 4.4-11.0 K/mm3 Normal WBC 5.4 LAB L100.1200 4.6-6.2 M/mm3 Normal RBC 5.43 LAB L100.1300 13.0-16.5 g/dl Normal HGB 15.0 LAB L100.1400 40-54 % Normal HCT 44.3 LAB L100.1500 80-94 fL Normal MCV 81.6 LAB L100.1600 27.0-32.0 pg Normal MCH 27.6 LAB L100.1700 32-36 g/gl Normal MCHC 33.9 LAB L100.1810 11.6-14.6 % Normal RDW CV 13.1 LAB L100.1820 35.1-43.9 fl Normal RDW SD 39.1 LAB L100.1900 150-450 K/mm3 Normal PLT 167 LAB L100.2000 6.2-12.0 fl Normal MPV 10.6 LAB L100.2100 47-70 % Normal NEUT% 63.2 LAB L100.2200 19-41 % Normal LY% 25.2 LAB L100.2300 0-10 % Normal MONO% 9.7 LAB L100.2400 0-5 % Normal EO% 1.7 LAB L100.2500 0-1 % Normal BASO% 0.2 LAB L100.2550 0.0-0.9 % Normal IM GRAN % 0.000 Result Comment: IG% - Immature Granulocytes (promyelocytes, myelocytes and metamyelocytes) > 1% indicates that a LEFT SHIFT is Present. LAB L100.2620 2.0-7.7 X10 3/uL Normal Absolute Neut 3.4 LAB L100.2720 0.83-4.51 X10 3/ul Normal Absolute Lymph 1.37 Performed By: #### L100.0100 #### [facility] [place], [address] PROGRESS Observed: 03/11/2018 Status: COMPLETED Source: [place] 12:14 PM [facility] REPOSITORY HNO ID: [id number] Author: Nora Mcguire (Pt) Pradip Service: (none) Author Type: Physical Therapist Type: Progress Notes Filed: 03/11/2018 12:17 PM Note Text: Episode Visit Count: 2 Therapist That Will Oversee The Plan Of Care: Nora South PT Start of Care Date: 02/14/18 Onset Date: 10/25/17 Plan of Care Certification Date: 02/14/18 REHABILITATION AND SPORTS THERAPY PHYSICAL THERAPY TREATMENT NOTE ASSESSMENT: Faith Ghosh demonstrated difficulty with continued paradoxical contraction but better coordination with breathing for active contraction of pelvic floor muscle and relaxation during inhale. Able to maintain low tone/activity in pelvic floor with diaphragmatic breathing. The patient will continue to benefit from continued skilled physical therapy for pelvic floor muscle re-education, dynamics, active lengthening. PLAN FOR NEXT VISIT: Continue muscle dynamics, try active lengthening on EMG SUBJECTIVE: Has been doing the abdominal massage. Hoping to reverse the ostomy in March when he follows up with [facility]. Pain Score: 0/10 Post Treatment Pain Score: 0/10 OBJECTIVE MEASURES WITH LEVEL OF FUNCTION: Pelvic Floor Difficulty evacuating / Excessive Straining: (Empties ostomy sometimes 10x/day) Pelvic Floor Muscle Assessment Pelvic Floor Muscle Assessment: Pelvic Floor Muscle EMG Sitting Paradoxical Contraction: Yes (on EMG) Sitting Flick strength (uV): 20.8 Sitting 10 sec hold strength (uV): 6 Sitting Net (uV): 2.2 Breathing Pattern : dyssynergic, inhales to contract Diaphragmatic Breathing : Good (with practice and cueing) TREATMENT: Therapeutic Exercise: 1: seated kegels 5/5 2: seated QF x20 3: DB with passive lengthenig of PFM Skilled Intervention: Patient was educated in proper exercise technique and purpose for exercises. Reviewed and educated patient on additions/changes for home exercise program as above (*) Educated patient on rationale for performing exercises in regards to increase ease of ADL Patient education as noted. Neuromuscular Re-Education: 1: used sEMG on pelvic floor for visual cueing.training for proper contraction, isolation, coordination with breathing 2: practiced muscle dynamics in supine, seated, voiding position 3: Used visual and verbal cueing to facilitate proper dynamics, unable to actively lengthen without paradoxical contraction Skilled Intervention: Education and demonstration for posture and positioning for tone management. Correct performance of home program was facilitated with verbal and visual cueing. Patient education as noted. Billing: [facility]: Therapeutic Exercise (91356): 1:1 time: 15 minutes (1 unit: 8-22 mins) Neuromuscular Re-education (30661): 1:1 time:30 minutes (2 units: 23-37 mins) Total time: 45 minutes Nora South PT CNTHERAPY Observed: 03/11/2018 Status: COMPLETED Source: [place] 11:30 AM [facility] REPOSITORY OT/PT/Speech Visit (SPTBR) FAITH GHOSH ([id number]) 1960 M Date Time Provider Department 03/11/18 11:30 AM [facility] (PT) SPTBR Date Time Provider Department Center 03/11/2018 11:30 AM [id number][facility] Reason for Visit: Physical Therapy [503] Visit Diagnosis:Muscle weakness [M62.81] Allergies As of Date: 03/11/2018 (No Known Allergies) Date Reviewed: 12/23/2017 Reviewed by: Anne Fowler - Fully Assessed Prescriptions as of 03/11/2018 Sig: APIXABAN 5 MG TABLET Take by mouth twice daily. ACETAMINOPHEN 500 MG TABLET Take 2 tablets by mouth every* IBUPROFEN 800 MG TABLET Take 1 tablet by mouth every * NIACIN ORAL Take 1 capsule by mouth once * METAMUCIL ORAL Take 1 tablet by mouth once d* ATENOLOL 25 MG TABLET Take 1 tablet by mouth once d* ALBUTEROL SULFATE HFA 90 MCG/* Inhale 1-2 Puffs as instructe* PANTOPRAZOLE ORAL Take 40 mg by mouth once frederic* LINACLOTIDE 290 MCG CAPSULE Take 1 capsule by mouth once * B-12 DOTS ORAL Take 1 tablet by mouth once d* ASCORBIC ACID (VITAMIN C) 100* Take 100 mg by mouth once francois* CLOZAPINE 100 MG TABLET Take 100 mg by mouth once francois* HYDROCHLOROTHIAZIDE 50 MG TAB* Take 50 mg by mouth once frederic* BENZTROPINE 1 MG TABLET Take 1 mg by mouth twice frederic* MONTELUKAST 10 MG TABLET TAKE 1 TABLET BY MOUTH DAILY * MAGNESIUM OXIDE 500 MG TABLET Take 500 mg by mouth once francois* METFORMIN 1,000 MG TABLET Take 1,000 mg by mouth daily * JANUMET XR 50 MG-1,000 MG TAB* TAKE 1 TABLET BY MOUTH TWICE * LOVASTATIN 20 MG TABLET Take 1 tablet by mouth daily * OMEGA-3 ACID ETHYL ESTERS 1 G* Take 2 capsules by mouth twic* BLOOD-GLUCOSE METER KIT 1 Each as needed. One Touch M* BLOOD SUGAR DIAGNOSTIC STRIPS Test blood sugar(s) 2 times d* LANCETS 28 GAUGE Test once daily. Dx: E11.9 -* LISINOPRIL 2.5 MG TABLET Take 1 tablet by mouth once d* PERPHENAZINE 8 MG TABLET Take 1 tablet by mouth four t* LORAZEPAM 2 MG TABLET Take 1 tablet by mouth twice * ASPIRIN 81 MG TABLET,DELAYED * Take 1 tablet by mouth once d* Progress Notes: Nora South, TOMMY 03/11/2018 12:17 PM Signed Episode Visit Count: 2 Therapist That Will Oversee The Plan Of Care: Nora South PT Start of Care Date: 02/14/18 Onset Date: 10/25/17 Plan of Care Certification Date: 02/14/18 REHABILITATION AND SPORTS THERAPY PHYSICAL THERAPY TREATMENT NOTE ASSESSMENT: Faith Ghosh demonstrated difficulty with continued paradoxical contraction but better coordination with breathing for active contraction of pelvic floor muscle and relaxation during inhale. Able to maintain low tone/activity in pelvic floor with diaphragmatic breathing. The patient will continue to benefit from continued skilled physical therapy for pelvic floor muscle re-education, dynamics, active lengthening. PLAN FOR NEXT VISIT: Continue muscle dynamics, try active lengthening on EMG SUBJECTIVE: Has been doing the abdominal massage. Hoping to reverse the ostomy in March when he follows up with [facility]. Pain Score: 0/10 Post Treatment Pain Score: 0/10 OBJECTIVE MEASURES WITH LEVEL OF FUNCTION: Pelvic Floor Difficulty evacuating / Excessive Straining: (Empties ostomy sometimes 10x/day) Pelvic Floor Muscle Assessment Pelvic Floor Muscle Assessment: Pelvic Floor Muscle EMG Sitting Paradoxical Contraction: Yes (on EMG) Sitting Flick strength (uV): 20.8 Sitting 10 sec hold strength (uV): 6 Sitting Net (uV): 2.2 Breathing Pattern : dyssynergic, inhales to contract Diaphragmatic Breathing : Good (with practice and cueing) TREATMENT: Therapeutic Exercise: 1: seated kegels 5/5 2: seated QF x20 3: DB with passive lengthenig of PFM Skilled Intervention: Patient was educated in proper exercise technique and purpose for exercises. Reviewed and educated patient on additions/changes for home exercise program as above (*) Educated patient on rationale for performing exercises in regards to increase ease of ADL Patient education as noted. Neuromuscular Re-Education: 1: used sEMG on pelvic floor for visual cueing.training for proper contraction, isolation, coordination with breathing 2: practiced muscle dynamics in supine, seated, voiding position 3: Used visual and verbal cueing to facilitate proper dynamics, unable to actively lengthen without paradoxical contraction Skilled Intervention: Education and demonstration for posture and positioning for tone management. Correct performance of home program was facilitated with verbal and visual cueing. Patient education as noted. Billing: [facility]: Therapeutic Exercise (20452): 1:1 time: 15 minutes (1 unit: 8-22 mins) Neuromuscular Re-education (27859): 1:1 time:30 minutes (2 units: 23-37 mins) Total time: 45 minutes Nora South, PT CBC W/DIFF, AUTOMATED Collected: 02/21/2018 Status: F Source: [place] 10:15 AM [facility] [place] REPOSITORY TYPE CODE TESTS RESULT OUT OF RANGE REFERENCE UNITS LAB L100.1000 4.4-11.0 K/mm3 Normal WBC 4.7 LAB L100.1200 4.6-6.2 M/mm3 Normal RBC 5.18 LAB L100.1300 13.0-16.5 g/dl Normal HGB 14.5 LAB L100.1400 40-54 % Normal HCT 43.0 LAB L100.1500 80-94 fL Normal MCV 83.0 LAB L100.1600 27.0-32.0 pg Normal MCH 28.0 LAB L100.1700 32-36 g/gl Normal MCHC 33.7 LAB L100.1810 11.6-14.6 % Normal RDW CV 13.1 LAB L100.1820 35.1-43.9 fl Normal RDW SD 39.2 LAB L100.1900 150-450 K/mm3 Normal PLT 187 LAB L100.2000 6.2-12.0 fl Normal MPV 11.3 LAB L100.2100 47-70 % Normal NEUT% 60.3 LAB L100.2200 19-41 % Normal LY% 24.8 LAB L100.2300 0-10 % High MONO% 12.8 LAB L100.2400 0-5 % Normal EO% 1.5 LAB L100.2500 0-1 % Normal BASO% 0.4 LAB L100.2550 0.0-0.9 % Normal IM GRAN % 0.200 Result Comment: IG% - Immature Granulocytes (promyelocytes, myelocytes and metamyelocytes) > 1% indicates that a LEFT SHIFT is Present. LAB L100.2620 2.0-7.7 X10 3/uL Normal Absolute Neut 2.8 LAB L100.2720 0.83-4.51 X10 3/ul Normal Absolute Lymph 1.16 Performed By: #### L100.0100 #### [facility] [address] [place] [address]. [place], [place], [address] PROGRESS Observed: 02/14/2018 Status: COMPLETED Source: [place] 3:59 PM [facility] REPOSITORY HNO ID: [id number] Author: Geeta Kuhn (Pt) Bridger Service: (none) Author Type: Physical Therapist Type: Progress Notes Filed: 02/16/2018 9:53 AM Note Text: Episode Visit Count: 1 Therapist That Will Oversee The Plan Of Care: Geeta Sparks PT (he may transfer to [place] or [place] per his home is [facility]) Start of Care Date: 02/14/18 Onset Date: 10/25/17 Plan of Care Certification Date: 02/14/18 Patient Identified by Name and Date of : Yes REHABILITATION AND SPORTS THERAPY PHYSICAL THERAPY EVALUATION PLAN OF CARE: Assessment: Faith Ghosh presents with the diagnosis of poor PFM coordination and breathing to allow normal BMs; history of outlet constipation and slow transit. He reports being unhappy with the ostomy per bag leaking a few times and he was embarrassed. Seems to happen after pop and other gassy foods/ drinks. He presents with impairments of fair breathing and PFM dynamics. He may benefit from skilled therapy services to improve the PFM and possibly reversal of ileostomy if MD agrees . Cognitive impairments may make the complex nature of muscle dynamics more challenging, but he did appear to grasp several concepts discussed today. Prognosis: Fair Fair due to: clinical presentation;chronic nature of impairments;poor past response to therapy intervention Goals for Episode of Care: created on 02/14/18 through 04/11/18 Pelvic Pain: Patient demonstrates ability to perform diaphragmatic breathing and relaxation Patient displays improved muscle dynamics of pelvic floor including ability to lengthen Patient reports increasing daily water intake to at least 8 8 oz glasses to normalize bowel health Knowledgeable regarding prophylaxis. G CODE REPORTING Based on clinical assessment and the score on the AM-PAC Scale Score Assessment Tool, the G code and corresponding severity modifiers are documented below. Evaluation: 02/16/2018 AM-PAC Basic Mobility -- Raw Score: 60 -- Scale Score: 66.43 -- Modifier: CJ -- MDC: 70.43 -- MDC Severity Modifier: CI Need to do PF measure next visit Planned Interventions, Frequency, and Duration: Current Frequency: 1x every other week Duration: 8 weeks Total Number of Visits Planned: 4 Planned Treatment Interventions: Therapeutic exercise;Neuromuscular re-education;Self-residential management;Therapeutic activities;Patient/Family/Caregiver Education;Body Mechanics Training PLAN FOR NEXT VISIT: PFM coordination ; try EMG again? Patient demonstrates fair understanding of plan of care and treatment. The above goals and plan of care were discussed and agreed upon by patient/family. SUBJECTIVE: Faith Ghosh is a 57 year old male seen today for wanting to inprove his ability to have normal BM; patient had PFPT in the Spring with [facility]; he has since had an ileostomy for slow transit ; reports he gets pasty stool in ostomy ; about 4 x per day; he does not like getting up at night. He is hopeful for a reversal. Patient Goals: not have to reverse the surgery Functional Limitations: (lives in intermediate and RN assists with ostomy) Prior Level of Function: Independent with restrictions Independent with the following restrictions: IADLs and self- care; ie ; ostomy Intake Information: Prescription present Previous Treatment: Physical Therapy? (PT in [place] gave him sheet with PF therex; he is doing) Falls Interview: No positive findings with falls interview Pain Score: 0/10 Post Treatment Pain Score: No Change OBJECTIVE MEASURES WITH LEVEL OF FUNCTION: Pelvic Floor History of low back pain: Yes Difficulty starting stream: No Incomplete emptying: No Spraying: No Nocturia (times per night): (sometimes for stool) Fluid Intake: Water;Milk;Pop/Diet Pop;Tea Water (8 oz glasses): 3 Tea (8 oz glasses): 2 Pop/Diet Pop (8 oz glasses): 2 Milk (8 oz glasses): 3 Difficulty evacuating / Excessive Straining: (NA due to ileostomy) Incomplete emptying: (in past ; he was constipated) Daily Dietary Fiber/ Food Intake: (eats fruits and veggies; eats at cafeteria at intermediate) Bowel Aides / Supplements: (used to take dulcolax and magnesium ; did not always work) Pelvic Floor Muscle Assessment Consent for pelvic assessment/testing and treatment: Patient was educated regarding pelvic floor physical therapy assessment/treatment which may include pelvic floor and girdle muscle assessment externally or internally (vaginal or rectal approach).;Patient verbalized consent for the above treatment approaches today. Patient understands they have control of the treatment and an opportunity to stop treatment at any time. Pelvic Floor Muscle Assessment: Muscle Dynamics Contracton Pressure: Weak squeeze, felt as flick at various points along finger surface, not all the way around Duration of Contraction: >1 to <3 seconds Recruitment of pelvic floor muscles: Uncoordinated Range of Motion: Decreased Ability to Lengthen pelvic floor: Difficulty at first, but improves with cueing and practice Post shortening contraction relaxation: Normal/Equal Paradoxical Contraction: Yes Involuntary Contraction: No Breathing Pattern : holds breath after the inspiration Diaphragmatic Breathing : Fair Pelvic Floor Manual Assessment Pubococcygeus: (no pain or tightness) Puborectalis: (mildly tight B; min pain) Education: Education Learning Preferences: Demonstration;Performance;Printed Materials Barriers: Cognitive Limitations Learning/educational needs: Home exercise program;Plan of Care Education Provided: Yes, see treatment interventions for education provided Education Provided To: Patient;Caregiver Education Mode/Type: Demonstration;Explanation/Discussion;Literature/Printed Materials;Performance Response to Education/Teach Back: States/Identifies;Return Demonstration;Requires Review/Additional Education TREATMENT: Evaluation Neuromuscular Re-Education: 1: deep breathing and PFM coordination ; tried to coordinate the 2 but he did not do this well yet Skilled Intervention: Patient education as noted. Billing: [facility]: Evaluation - Moderate Complexity (82558) Neuromuscular Re-education (43305): 1:1 time:40 minutes (3 units: 38-52 mins) Total time: 60 minutes Geeta Sparks PT CNTHERAPY Observed: 02/14/2018 Status: COMPLETED Source: [place] 1:45 PM [facility] REPOSITORY OT/PT/Speech Visit (PHYTMN) FAITH GHOSH ([id number]) 1960 M Date Time Provider Department 02/14/18 1:45 PM GEETA SPARKS (PT) [facility] Date Time Provider Department Center 02/14/2018 1:45 PM [id number] SPARKS *PHYTMN Javier Scott Reason for Visit: PT Eval [747] Primary Visit Diagnosis:Muscle weakness [M62.81] Allergies As of Date: 02/14/2018 (No Known Allergies) Date Reviewed: 12/23/2017 Reviewed by: Anne Fowler - Fully Assessed Prescriptions as of 02/14/2018 Sig: APIXABAN 5 MG TABLET Take by mouth twice daily. ACETAMINOPHEN 500 MG TABLET Take 2 tablets by mouth every* IBUPROFEN 800 MG TABLET Take 1 tablet by mouth every * NIACIN ORAL Take 1 capsule by mouth once * METAMUCIL ORAL Take 1 tablet by mouth once d* ATENOLOL 25 MG TABLET Take 1 tablet by mouth once d* ALBUTEROL SULFATE HFA 90 MCG/* Inhale 1-2 Puffs as instructe* PANTOPRAZOLE ORAL Take 40 mg by mouth once frederic* LINACLOTIDE 290 MCG CAPSULE Take 1 capsule by mouth once * B-12 DOTS ORAL Take 1 tablet by mouth once d* ASCORBIC ACID (VITAMIN C) 100* Take 100 mg by mouth once francois* CLOZAPINE 100 MG TABLET Take 100 mg by mouth once francois* HYDROCHLOROTHIAZIDE 50 MG TAB* Take 50 mg by mouth once frederic* BENZTROPINE 1 MG TABLET Take 1 mg by mouth twice frederic* MONTELUKAST 10 MG TABLET TAKE 1 TABLET BY MOUTH DAILY * MAGNESIUM OXIDE 500 MG TABLET Take 500 mg by mouth once francois* METFORMIN 1,000 MG TABLET Take 1,000 mg by mouth daily * JANUMET XR 50 MG-1,000 MG TAB* TAKE 1 TABLET BY MOUTH TWICE * LOVASTATIN 20 MG TABLET Take 1 tablet by mouth daily * OMEGA-3 ACID ETHYL ESTERS 1 G* Take 2 capsules by mouth twic* BLOOD-GLUCOSE METER KIT 1 Each as needed. One Touch M* BLOOD SUGAR DIAGNOSTIC STRIPS Test blood sugar(s) 2 times d* LANCETS 28 GAUGE Test once daily. Dx: E11.9 -* LISINOPRIL 2.5 MG TABLET Take 1 tablet by mouth once d* PERPHENAZINE 8 MG TABLET Take 1 tablet by mouth four t* LORAZEPAM 2 MG TABLET Take 1 tablet by mouth twice * ASPIRIN 81 MG TABLET,DELAYED * Take 1 tablet by mouth once d* Progress Notes: Geeta Sparks PT 02/16/2018 9:53 AM Signed Episode Visit Count: 1 Therapist That Will Oversee The Plan Of Care: Geeta Sparks PT (he may transfer to [place] or [place] per his home is [facility]) Start of Care Date: 02/14/18 Onset Date: 10/25/17 Plan of Care Certification Date: 02/14/18 Patient Identified by Name and Date of : Yes REHABILITATION AND SPORTS THERAPY PHYSICAL THERAPY EVALUATION PLAN OF CARE: Assessment: Faith Ghosh presents with the diagnosis of poor PFM coordination and breathing to allow normal BMs; history of outlet constipation and slow transit. He reports being unhappy with the ostomy per bag leaking a few times and he was embarrassed. Seems to happen after pop and other gassy foods/ drinks. He presents with impairments of fair breathing and PFM dynamics. He may benefit from skilled therapy services to improve the PFM and possibly reversal of ileostomy if MD agrees . Cognitive impairments may make the complex nature of muscle dynamics more challenging, but he did appear to grasp several concepts discussed today. Prognosis: Fair Fair due to: clinical presentation;chronic nature of impairments;poor past response to therapy intervention Goals for Episode of Care: created on 02/14/18 through 04/11/18 Pelvic Pain: Patient demonstrates ability to perform diaphragmatic breathing and relaxation Patient displays improved muscle dynamics of pelvic floor including ability to lengthen Patient reports increasing daily water intake to at least 8 8 oz glasses to normalize bowel health Knowledgeable regarding prophylaxis. G CODE REPORTING Based on clinical assessment and the score on the AM-PAC Scale Score Assessment Tool, the G code and corresponding severity modifiers are documented below. Evaluation: 02/16/2018 AM-PAC Basic Mobility -- Raw Score: 60 -- Scale Score: 66.43 -- Modifier: CJ -- MDC: 70.43 -- MDC Severity Modifier: CI Need to do PF measure next visit Planned Interventions, Frequency, and Duration: Current Frequency: 1x every other week Duration: 8 weeks Total Number of Visits Planned: 4 Planned Treatment Interventions: Therapeutic exercise;Neuromuscular re-education;Self-residential management;Therapeutic activities;Patient/Family/Caregiver Education;Body Mechanics Training PLAN FOR NEXT VISIT: PFM coordination ; try EMG again? Patient demonstrates fair understanding of plan of care and treatment. The above goals and plan of care were discussed and agreed upon by patient/family. SUBJECTIVE: Faith Ghosh is a 57 year old male seen today for wanting to inprove his ability to have normal BM; patient had PFPT in the Spring with [facility]; he has since had an ileostomy for slow transit ; reports he gets pasty stool in ostomy ; about 4 x per day; he does not like getting up at night. He is hopeful for a reversal. Patient Goals: not have to reverse the surgery Functional Limitations: (lives in intermediate and RN assists with ostomy) Prior Level of Function: Independent with restrictions Independent with the following restrictions: IADLs and self- care; ie ; ostomy Intake Information: Prescription present Previous Treatment: Physical Therapy? (PT in [place] gave him sheet with PF therex; he is doing) Falls Interview: No positive findings with falls interview Pain Score: 0/10 Post Treatment Pain Score: No Change OBJECTIVE MEASURES WITH LEVEL OF FUNCTION: Pelvic Floor History of low back pain: Yes Difficulty starting stream: No Incomplete emptying: No Spraying: No Nocturia (times per night): (sometimes for stool) Fluid Intake: Water;Milk;Pop/Diet Pop;Tea Water (8 oz glasses): 3 Tea (8 oz glasses): 2 Pop/Diet Pop (8 oz glasses): 2 Milk (8 oz glasses): 3 Difficulty evacuating / Excessive Straining: (NA due to ileostomy) Incomplete emptying: (in past ; he was constipated) Daily Dietary Fiber/ Food Intake: (eats fruits and veggies; eats at cafeteria at intermediate) Bowel Aides / Supplements: (used to take dulcolax and magnesium ; did not always work) Pelvic Floor Muscle Assessment Consent for pelvic assessment/testing and treatment: Patient was educated regarding pelvic floor physical therapy assessment/treatment which may include pelvic floor and girdle muscle assessment externally or internally (vaginal or rectal approach).;Patient verbalized consent for the above treatment approaches today. Patient understands they have control of the treatment and an opportunity to stop treatment at any time. Pelvic Floor Muscle Assessment: Muscle Dynamics Contracton Pressure: Weak squeeze, felt as flick at various points along finger surface, not all the way around Duration of Contraction: >1 to <3 seconds Recruitment of pelvic floor muscles: Uncoordinated Range of Motion: Decreased Ability to Lengthen pelvic floor: Difficulty at first, but improves with cueing and practice Post shortening contraction relaxation: Normal/Equal Paradoxical Contraction: Yes Involuntary Contraction: No Breathing Pattern : holds breath after the inspiration Diaphragmatic Breathing : Fair Pelvic Floor Manual Assessment Pubococcygeus: (no pain or tightness) Puborectalis: (mildly tight B; min pain) Education: Education Learning Preferences: Demonstration;Performance;Printed Materials Barriers: Cognitive Limitations Learning/educational needs: Home exercise program;Plan of Care Education Provided: Yes, see treatment interventions for education provided Education Provided To: Patient;Caregiver Education Mode/Type: Demonstration;Explanation/Discussion;Literature/Printed Materials;Performance Response to Education/Teach Back: States/Identifies;Return Demonstration;Requires Review/Additional Education TREATMENT: Evaluation Neuromuscular Re-Education: 1: deep breathing and PFM coordination ; tried to coordinate the 2 but he did not do this well yet Skilled Intervention: Patient education as noted. Billing: [facility]: Evaluation - Moderate Complexity (87991) Neuromuscular Re-education (50378): 1:1 time:40 minutes (3 units: 38-52 mins) Total time: 60 minutes Geeta Sparks PT CBC W/DIFF, AUTOMATED Collected: 01/21/2018 Status: F Source: [place] 12:39 PM [facility] REPOSITORY TYPE CODE TESTS RESULT OUT OF RANGE REFERENCE UNITS LAB L100.1000 4.4-11.0 K/mm3 Low WBC 4.2 LAB L100.1200 4.6-6.2 M/mm3 Normal RBC 5.22 LAB L100.1300 13.0-16.5 g/dl Normal HGB 14.9 LAB L100.1400 40-54 % Normal HCT 43.6 LAB L100.1500 80-94 fL Normal MCV 83.5 LAB L100.1600 27.0-32.0 pg Normal MCH 28.5 LAB L100.1700 32-36 g/gl Normal MCHC 34.2 LAB L100.1810 11.6-14.6 % Normal RDW CV 13.3 LAB L100.1820 35.1-43.9 fl Normal RDW SD 40.4 LAB L100.1900 150-450 K/mm3 Normal PLT 162 LAB L100.2000 6.2-12.0 fl Normal MPV 10.6 LAB L100.2100 47-70 % Normal NEUT% 58.6 LAB L100.2200 19-41 % Normal LY% 28.3 LAB L100.2300 0-10 % High MONO% 10.1 LAB L100.2400 0-5 % Normal EO% 2.1 LAB L100.2500 0-1 % Normal BASO% 0.7 LAB L100.2550 0.0-0.9 % Normal IM GRAN % 0.200 Result Comment: IG% - Immature Granulocytes (promyelocytes, myelocytes and metamyelocytes) > 1% indicates that a LEFT SHIFT is Present. LAB L100.2620 2.0-7.7 X10 3/uL Normal Absolute Neut 2.5 LAB L100.2720 0.83-4.51 X10 3/ul Normal Absolute Lymph 1.20 Performed By: #### L100.0100 #### [facility] [address] [place], [address] INITAL EVALUATION (1) Observed: 01/11/2018 Status: F Source: [place] - [place] 9:29 AM [facility] REPOSITORY [facility] [address] [place] [address] Fax REHABILITATION SERVICES INITIAL EVALUATION MR#: [id number] Acct: [id number] Name: FAITH GHOSH Rep #: [id number] : 1960 57 From: Toño Ramos DPT, OCS, CSCS Referring Dr.: Status: REG RCR [facility] *IN NETWORK SELF PAY INSURANCE Patient's Visit Information FAITH GHOSH is a 57 year old M referred to Physical Therapy by ANNE FOWLER with a diagnosis of ileostomy in place, constipation. Date of Evaluation: 01/10/18 Physical Therapist: Toño Ramos DPT, OC - Visit Plan Frequency: 2-3x /Week Duration: 4-6 Weeks Plan: 2-3x/week for 4-6 for ... 1. LE adn UE machines in gym to I taking care with ileostomy. Care with R knee OA adn L shoulder dysfunction from over a decade ago(RC?). 2. isometric core strength to I. 3. stretch hip flexors/quads/ pecs/ hamstrings and lats to I. 4. TM vs, bike, vs ellitpical for CV. 5. Patient is already a member of [employer] and used to wroout prior to this surgery, wishes to get back to that. I showed him kegels today 5 sec 10x 3 sets but no complaints outside of ieleostomy management which he is working on at the care center. - Subjective Subjective: Usedto do his own workout. Had ileostomy on October 25 due to constipation problems and it will be removed in 6 weeks. No pa in. Just hasn't been working out and wants to get back to it. Was doing TM and upper body strength machines. Did a couple leg machines too. Needs to get back to those slow and easy and is concerned. Hasn't worked out since October 13. Sleep is OK, awake at times due to ileostomy but not painful. Feels like balance is good. Not employed. 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 Lives at care center due to ileostomy. Lives at home with mom and step dad when healthy. Steps when living there make him winded. Enjoys listening to music for fun and working out. Basic ADLs are good. Was doing balance and walking with PT at care center but discharged this am. - Objective previous R knee surgery adn L shoulder dislocation limits motion at these joints. Hsn't lifted should in last 10 years. Walks I, [employer] chair and bed I without UE to stand. Steps are reciprocal with one rail. Balance appears good. UE AROM WFL on right and L is limited in elevation to 90 and PROM to 110 limited by pain. No active ext rotation on L, full on R. Strength elevation 3- R and 4 on L, ext rotation 1 on L and 4 on R, int rotation 4 on R and 3+ on L. Bi and triceps 4 B. Pecs and lats B tight. LE aROM WFL, very tight in HS and hip flexors B and quad mod tight. reflexes 2/3 patella and achilles and biceps and triceps. Sensation in UE and LE to gross light touch WNL. Pt came from bathroom and had drainage from ileostomy on front of pants and shirt today. Carol Shoemaker for HEP - Balance Scores Functional Gait Assessment Score: 27 % Disability: 10.0000 - Goals Goal 1:: Back to I workout in gym without pain or ileostomy concerns Goal Time Frame: 4-6 Weeks Goal 2:: Patient feel 100%back to normal activiity Goal Time Frame: 4-6 Weeks - Rehabilitation Potential Physical Therapy Diagnosis: weakness adn lack of fitness from recent surgery. Rehabilitation Potential: Fair - Anticipated Interventions Patient/Client Instruction: Educate patient on: Condition, Plan of Care For the Purpose of:: To improve muscle performance and motor function, To increase tolerance to activity/condition/position Therapeutic Exercise to Include: Strength training, Flexibilty training For the Purpose of:: To improve muscle performance and motor function, To increase tolerance to activity/condition/position, To improve ability of physical actions for home/community/work/leisure Thank you for the opportunity to evaluate your patient. For Medicare and Medicare HMO plans, please review the plan of care and approve it. It will need to be FAXED BACK to us at [phone] for Medicare purposes. Please let me know if there are questions or concerns regarding this plan of care. Physician Signature: Date: <Electronically signed by Toño Ramos DPT, OCS, CSCS> 01/11/18928 CC: OUT OF TOWN DOCTOR; Mohan Christianson MD EBG Signed For Medicare only, by signing this I certify the plan of care. Physicians Signature Date DISCHARGE SUMMARY Observed: 12/29/2017 Status: F Source: [place] 6:25 PM [facility] REPOSITORY [facility] Medical Records Department [address] [place] [address] Discharge Summary 12/29/17 1111 MR#: [id number] Acct: [id number] Name: FAITH GHOSH Rep #: [id number] : 1960 57 From: Giancarlo Nieves MD PCP: Mohan Christianson MD Status: DIS IN Y Location: [facility] [id number] Discharge Date and Diagnosis Date of Admission: 12/26/17 Date of Discharge: 12/29/17 - Primary Discharge Diagnosis Active and Suspected Problems 1. Sepsis (fever, tachypnea, tachycardia secondary to E. coli UTI) but normal lactic acid: Patient is being admitted on regular floor. UA shows pyuria, WBC more than 100 with leukocyte esterase H, nitrite negative but no hematuria. Prelim urine culture shows E. coli more than 100,000. Patient is on IV ceftriaxone. IV fluid normal saline. Monitor intake and output. E. coli sensitive to ceftriaxone. The patient is discharged on cefadroxil for 5 more days. 2. Acute kidney injury probably from combination of prerenal/UTI/postobstructive secondary to BPH; resolved: 3. Urology conditions: Probably BPH and neurogenic bladder probably induced from multiple antipsychotic medications: 4. Altered mental status/acute encephalopathy probably from UTI and Ativan/polypharmacy: Resolved - Secondary Discharge Diagnosis Chronic Problems Pulmonary embolism (Chronic) S/P ileostomy (Chronic) HTN (hypertension) (Chronic) Diabetes mellitus (Chronic) HLD (hyperlipidemia) (Chronic) Schizoaffective disorder (Chronic) Nicotine abuse (Chronic) Hospital Course and Treatment Operations: None Summary of Care Provided: [ This is a 57-year-old gentleman with history of Diabetes mellitus type II, HTN, HLD, Tobacco use history, Anxiety and Depression/Schizoaffective disorder on multiple antipsychotic medications and Ativan, GERD, Recent 11/13/17 admission due to acute Pulmonary Embolism, s/p colon resection and ileostomy secondary to severe chronic constipation, complications of high-output ileostomy fistula and LUIS ANTONIO was admitted on 01-11 with increased lethargy, confusion, disorientation and fatigue with generalized weakness for last 2 days. Seen and examined today She is more awake and alert and able to answer simple questions. He has mild anxiety and asking for Ativan. General: Alert, Oriented x3, Cooperative HEENT: Atraumatic, PERRLA, EOMI, Normocephalic Neck: Supple, No JVD, Negative Carotid Bruits Lungs: Clear to auscultation, Normal air movement Cardiovascular: Regular rate, Normal S1, Normal S2, No murmurs Abdomen: Bowel Sounds Present, Soft, Non Tender, Non-Distended, -More[place] catheter discontinued yesterday. Spontaneously voided urine Extremities: No edema, Capillary Refill Less than 3 Seconds Skin: No rashes, No breakdown Musculoskeletal: No Tenderness to Palpation of Joints or Extremities, Arthritic Changes Neurological: Cranial nerves II-XII grossly intact, Neuro grossly intact Psych/Mental Status: Anxious 1. Sepsis (fever, tachypnea, tachycardia secondary to E. coli UTI) but normal lactic acid: Patient is being admitted on regular floor. UA shows pyuria, WBC more than 100 with leukocyte esterase H, nitrite negative but no hematuria. Prelim urine culture shows E. coli more than 100,000. Patient is on IV ceftriaxone. IV fluid normal saline. Monitor intake and output. E. coli sensitive to ceftriaxone. The patient is discharged on cefadroxil for 5 more days. 2. Acute kidney injury probably from combination of prerenal/UTI/postobstructive secondary to BPH; resolved: Patient has high output ileostomy fistula. Treat the underlying cause. Ultrasound kidneys and bladder. On Flomax. Postvoid on bladder scan has been 450 ml and 500 mL on 2 occasions. Creatinine is back to baseline 0.8 mg/dL. Moreno catheter was discontinued. Patient voided urine spontaneously. 3. Urology conditions: Probably BPH and neurogenic bladder probably induced from multiple antipsychotic medications: Flomax increased to 0.[address] Skinner ordered removal of Moreno catheter and a spontaneous voiding trials. Rest as above mentioned. 4. Electrolyte imbalance: Hypotonic hypovolemic hyponatremia secondary to high output ileostomy fistula. Monitor sodium. Magnesium 2.0. Sodium is corrected. K3.0 on replacement. Discontinue IV fluid normal saline 5. Anemia of chronic disease AND Thrombocytopenia: Iron profile shows iron 16, TIBC 258, on the low normal range; ferritin 467; iron profile suggestive of anemia of chronic disease. Stool for guaiac test is negative. Folate normal. (6) Recent Pulmonary Embolism: Continue Eliquis regimen. (7) Diabetes mellitus type II: Hold oral home regimen, ADA diet, accu checks w/ ISS. (8) altered mental status/acute encephalopathy secondary to high-dose of Ativan: Patient got much better after Ativan dose was lowered and make as needed 1 mg every 4 hourly. Patient was advised to take it only when needed for anxiety. Advised to follow-up with psychiatrist to decrease the dose. Anxiety and Depression/Schizoaffective disorder: Continue perphenazine and clozapine and Cogentin. Hyperlipidemia: Continue home statin regimen. Hypertension: Continue home regimen including atenolol, holding HCTZ and ACEI secondary to LUIS ANTONIO, PRN hydralazine. DVT Prophylaxis: eliquis. Discharge medication reconciliation done. Discharge follow- up instructions completed. Total time spent, exact 35 minutes on discharge meds reconciliation, examination, review of imaging and blood test and discussion with the patient on follow-up instructions. Home Medications: Medications to take at Discharge Atenolol [Tenormin (beta vineet)] 25 mg PO DAILY 02/15/15 Clozapine [Clozaril] 100 mg PO BID 02/15/15 Lovastatin [Mevacor] 20 mg PO QHS 02/15/15 Benztropine [Cogentin] 1 mg PO BID 11/05/17 Sitagliptin Phos/Metformin HCl [Janumet Xr 50-1,000 mg Tablet] 1 tablet PO DAILY #1 tablet 11/07/17 Magnesium Oxide [Magnesium] 400 mg PO DAILY 11/13/17 Montelukast [Singulair] 10 mg PO QHS 11/14/17 Perphenazine 8 mg PO 4X/DAY 11/14/17 Loperamide [Imodium] 2 mg PO Q4H #60 cap 11/16/17 Acetaminophen [Tylenol Suppository] 650 mg RECTAL Q4H PRN PRN 12/27/17 Apixaban [Eliquis] 5 mg PO BID 12/27/17 Cefadroxil [Duricef] 500 mg PO BID #10 cap 12/29/17 Hydrochlorothiazide 25 mg PO DAILY #0 12/29/17 Lisinopril [Zestril] 5 mg PO DAILY #0 12/29/17 Lorazepam [Ativan] 1 mg PO BID #0 12/29/17 Potassium Chloride [Klor-Con M20] 40 meq PO BID #0 12/29/17 Tamsulosin HCl [Flomax] 0.8 mg PO DAILY #30 cap 12/29/17 Following Prescrptions Were Given to Patient: Tamsulosin HCl [Flomax] 0.8 mg PO DAILY #30 cap Cefadroxil [Duricef] 500 mg PO BID #10 cap Primary Care Physician: Mohan Christianson MD [Primary Care Provider] - Please follow up with your Primary Care Physician in: IN 2 weeks Medical Necessity - Tobacco Use Smoking Status: Never smoker Tobacco Use: Non-smoker Meaningful Use Info Meaningful Use Diagnoses (Choose all that apply): None applicable Code Visit Inpatient E AND M: 67569 Disch Hosp 12/29/17 1825 <Electronically signed by Giancarlo Nieves MD> Date Giancarlo Nieves MD Cosigner Signature (if applicable): Date CC: Mohan Christianson MD; Giancarlo Nieves MD Signed TRANSFER TO EXTENDED Observed: 12/29/2017 Status: F Source: [facility] 11:11 AM [facility] REPOSITORY [facility] Medical Records Department [address] [place] [address] Transfer to Extended Care MR#: [id number] Acct: [id number] Name: FAITH GHOSH Rep #: [id number] : 1960 57 From: Giancarlo Nieves MD PCP: Mohan Christianson MD Status: ADM IN FAITH GHOSH (Patient) (Health Ins. Claim No.) (Day of Discharge to Facility) Certification of patient admission REQUIRED AT TIME OF ADMISSION. I CERTIFY THAT POST-HOSPITAL ECF SERVICES ARE REQUIRED TO BE GIVEN ON AN IN-PATIENT BASIS BECAUSE OF THE ABOVE NAMED PATIENT'S NEED FOR [facility] CARE ON A CONTINUING BASIS FOR THE CONDITION(S) FOR WHICH HE/SHE WAS RECEIVING IN-PATIENT HOSPITAL SERVICES PRIOR TO HIS/HER TRANSFER TO THE F. 12/29/17 1111 <Electronically signed by Giancarlo Nieves MD> Date Giancarlo Nieves MD - Routine Orders/Code Status Suppository Type: Dulcolax 10mg Suppository Frequency: Daily PRN Routine Lab Work: BMP - On 12/31/2017, - - Serum magnesium on 12/31/2017 - Therapies Physical Therapy: Eval and Treat Occupational Therapy: Eval and Treat - Allergies/Procedures Done in Hospital Allergies/Adverse Reactions: Allergies No Known Allergies Allergy (Verified 11/13/17 18:10) - Type of Care/Length of Stay Estimated LOS: Convalescent Care Less Than 30 days Type of Care Needed: Skilled Rehab Potential: Good Prognosis: Good - Additional Orders/Day of Discharge Additional Orders: Patient needs to follow with a psychiatrist to decrease the dose of Ativan and make it as needed as he has side effects including increased sedation, lethargic is, abnormal dreams, agitation Day of Discharge: 12/29/17 - Dietary and Speech Recommendations Dietitian Recommendations/Changes: Rec consider diet change to cardiac/low cholesterol, CHO controlled, high fiber. Will add Glucerna Shake on medpass for increased calories and protein if consumed. - Follow Up Care Primary Care Physician: Mohan Christianson MD [Primary Care Provider] - Please follow up with your Primary Care Physician in: [place] 2 weeks 12/29/17 1111 <Electronically signed by Giancarlo Nieves MD> Date Giancarlo Nieves MD CC: Sinan Skinner MD; Mohan Christianson MD Signed BASIC METABOLIC Collected: 12/29/2017 Status: F Source: [place] [facility] ([facility]) 5:44 AM [facility] REPOSITORY TYPE CODE TESTS RESULT OUT OF RANGE REFERENCE UNITS LAB L501.0100 74-106 mg/dL High GLU 152 Result Comment: Fasting Glucose result greater than or equal to 126 mg/dL suggests DIABETES MELLITUS per A.D.A. criteria. Please note revised GLUCOSE reference range effective 2017. LAB L501.1000 7-18 mg/dL Normal BUN 8 LAB L501.1100 0.70-1.30 mg/dL Low CREAT,SERUM 0.66 Result Comment: The validity of the calculated GFR AND GFRAA in patients over 70 years has not been determined. Clinical correlation is essential. LAB L501.1110 >60 mL/min Normal EST GFR 132 Result Comment: Non- GFR Calc LAB L501.1115 >60 mL/min Normal EST GFR - AA 159 Result Comment: GFR Calc LAB L501.1255 ml/min Normal Estimated CRCL 142.92 LAB L501.1300 10-20 RATIO BUN/CRE Normal 12.0 LAB L501.2200 8.5-10 mg/dL Low .1 CA 8.3 LAB L501.5300 136-14 mmol/L 5 NA Normal 141 LAB L501.5600 3.5-5. mmol/L Low 1 K 3.3 LAB L501.5900 98-107 mmol/L CL Normal 107 LAB L501.6100 21.0-3 mmol/L 2.0 CO2 Normal 22.0 LAB L501.6200 5-15 GAP Normal 12 Performed By: #### L500.2500 #### [facility] [address] [place], [address] 12 LEAD ELECTROCARDIOGRAM Observed: 12/28/2017 Status: F Source: [place] 1:16 PM [facility] Cardiovascular Services [address] [place] [address] 12 Lead EKG 12/26/17 2158 MR#: [id number] Acct: [id number] Name: FAITH GHOSH Rep #: [id number] : 1960 57 From: Oleksandr Avina MD Attending Dr: Giancarlo Nieves MD Status: ADM IN Ordering Dr: Shaw Lawson MD Date: 12/26/17 Location: MS3 Sex: M C Admitted: 12/26/17 Test Reason : CONFUSION Blood Pressure : / mmHG Vent. Rate : 098 BPM Atrial Rate : 098 BPM P-R Int : 150 ms QRS Dur : 100 ms QT Int : 384 ms P-R-T Axes : 046 -27 040 degrees QTc Int : 490 ms Normal sinus rhythm Prolonged QT Abnormal ECG Confirmed by OLEKSANDR AVINA ([id number]), telegraph editor BERENICE MUNOZ ([id number]) on 12/28/2017 1:16:30 PM Referred By: Martha Wang Confirmed By:OLEKSANDR AVINA 12/28/17 1316 Date Oleksandr Avina MD CC: Shaw Lawson MD; Mohan Christianson MD; Giancarlo Nieves MD Signed CONSULTATION Observed: 12/28/2017 Status: F Source: [place] 7:54 AM [facility] Medical Records Department [address] [place] [address] Consultation 12/28/17 0751 MR#: [id number] Acct: [id number] Name: FAITH GHOSH Rep #: [id number] : 1960 57 From: Sinan Skinner MD PCP: Mohan Christianson MD Status: ADM IN Y Location: MS3 [id number] Problem List (1) LUIS ANTONIO (acute kidney injury) Status: Acute (2) UTI (urinary tract infection) Status: Acute Qualifiers: Urinary tract infection type: acute cystitis Reason for Consult Date of Consultation: 12/28/17 Reason for Consultation: Urinary tract infection possible BPH History of Present Illness: The patient is a 57 year old male who was admitted to the emergency room with confusion and was found to have an E. coli UTI he currently has a catheter in place at this point is able to answer questions more appropriately he does have difficulty with communication given his disabilities. The urine is nice and clear. He is grown E. coli in the urine continue with treatment as necessary his Flomax has been increased which is appropriate. At this point I think we do not want to DC his Moreno for another voiding trial and check a PVR. Past Medical History Past Medical History (Chronic Problems): Chronic Problems Pulmonary embolism (Chronic) S/P ileostomy (Chronic) HTN (hypertension) (Chronic) Diabetes mellitus (Chronic) HLD (hyperlipidemia) (Chronic) Schizoaffective disorder (Chronic) Nicotine abuse (Chronic) Allergies No Known Allergies Allergy (Verified 11/13/17 18:10) Home Medications: Ambulatory Orders Medication Instructions Recorded Atenolol [Tenormin (beta vineet)] 25 mg PO DAILY 02/15/15 Surgical History: noncontributory, - - Ileostomy w/ colon resection. Psychiatric History: Anxiety, Depression, Schizophrenia Lives: Shelter Smoking Status: Never smoker Tobacco Use: Non-smoker Alcohol: None Drugs: None - *Family History Maternal History Items: High Cholesterol Paternal History Items: Unknown Review of Systems Constitutional: Reports: Fever. Denies: Chills, Weight Change HEENT: Denies: Head Aches, Sinus Congestion, Sinus Drainage Cardiovascular: Denies: Chest Pain, Palpitations Respiratory: Denies: Cough, Shortness of breath at rest, Sputum production Gastrointestinal: Denies: Abdominal Pain, Nausea, Vomiting Genitourinary: Reports: Dysuria, Incontinence, Retention Musculoskeletal: Denies: Joint Pain, Joint Tenderness Skin: Denies: Rash, Wounds Neurological: Denies: Numbness, Tingling, Focal weakness Psychiatric: Denies: Anxiety, Depression, Homicidal Ideations, Suicidal Ideations Hematologic/ Lymphatic: Denies: Easy Bruising, Easy Bleeding Physical Exam - Physical Exam Vital Signs Temp 97.8 F 12/28/17 06:05 Pulse 85 12/28/17 07:05 Resp 16 12/28/17 07:05 BP 122/83 H 12/28/17 06:05 Pulse Ox 97 12/28/17 07:05 Intake AND Output General: Cooperative HEENT: Atraumatic Oral: Moist Mucosa Neck: Supple Lungs: Normal air movement Cardiovascular: Regular rate Abdomen: Bowel Sounds Present, Soft, Obese Rectal: Exam deferred Microbiology Past 72 Hours 12/27/17 06:20 C. difficile DNA Amplification - Final Stool 12/27/17 06:20 Stool Occult Blood (DENISSE) - Final Stool Laboratory Tests Past 24 Hrs WBC 3.3 L RBC 3.89 L Hgb 10.9 L Hct 32.6 L MCV 83.8 MCH 28.0 MCHC 33.4 RDW 13.7 Assessment/Plan All Active Problems Sepsis (Acute) UTI (urinary tract infection) (Acute) LUIS ANTONIO (acute kidney injury) (Acute) Hyponatremia (Acute) ARF (acute renal failure) (Acute) 57-year-old male presented to the hospital with elevated creatinine, urinary tract infection, Moreno catheter is in place his creatinines come back down some his Flomax but increased. Has a history of constipation in the past. Recommend that we remove the Moreno catheter for a voiding trial and check a postvoid residual continue with Flomax as prescribed call with questions. 12/28/17 0754 <Electronically signed by Sinan Skinner MD> Date Sinan Skinner MD Cosigner Signature (if applicable): Date CC: Sinan Skinner MD; Mohan Christianson MD Signed CBC W/DIFF, AUTOMATED Collected: 12/28/2017 Status: F Source: [place] 5:55 AM [facility] REPOSITORY TYPE CODE TESTS RESULT OUT OF RANGE REFERENCE UNITS LAB L100.1000 4.4-11.0 K/mm3 Low WBC 3.3 LAB L100.1200 4.6-6.2 M/mm3 Low RBC 3.89 LAB L100.1300 13.0-16.5 g/dl Low HGB 10.9 LAB L100.1400 40-54 % Low HCT 32.6 LAB L100.1500 80-94 fL Normal MCV 83.8 LAB L100.1600 27.0-32.0 pg Normal MCH 28.0 LAB L100.1700 32-36 g/gl Normal MCHC 33.4 LAB L100.1810 11.6-14.6 % Normal RDW CV 13.7 LAB L100.1820 35.1-43.9 fl Normal RDW SD 41.9 LAB L100.1900 150-450 K/mm3 Low PLT 110 LAB L100.2000 6.2-12.0 fl Normal MPV 11.4 LAB L100.2100 47-70 % Normal NEUT% 61.4 LAB L100.2200 19-41 % Normal LY% 20.4 LAB L100.2300 0-10 % High MONO% 16.1 LAB L100.2400 0-5 % Normal EO% 1.2 LAB L100.2500 0-1 % Normal BASO% 0.3 LAB L100.2550 0.0-0.9 % Normal IM GRAN % 0.600 Result Comment: IG% - Immature Granulocytes (promyelocytes, myelocytes and metamyelocytes) > 1% indicates that a LEFT SHIFT is Present. LAB L100.2620 2.0-7.7 X10 3/uL Normal Absolute Neut 2.0 LAB L100.2720 0.83-4.51 X10 3/ul Low Absolute Lymph 0.67 Performed By: #### L100.0100 #### [facility] [address] [place], [address] BASIC METABOLIC Collected: 12/28/2017 Status: F Source: [place] [facility] ([facility]) 5:55 AM [facility] REPOSITORY TYPE CODE TESTS RESULT OUT OF RANGE REFERENCE UNITS LAB L501.0100 74-106 mg/dL High GLU 143 Result Comment: Fasting Glucose result greater than or equal to 126 mg/dL suggests DIABETES MELLITUS per A.D.A. criteria. Please note revised GLUCOSE reference range effective 2017. LAB L501.1000 7-18 mg/dL Normal BUN 11 LAB L501.1100 0.70-1.30 mg/dL Normal CREAT,SERUM 0.85 Result Comment: The validity of the calculated GFR AND GFRAA in patients over 70 years has not been determined. Clinical correlation is essential. LAB L501.1110 >60 mL/min Normal EST GFR 99 Result Comment: Non- GFR Calc LAB L501.1115 >60 mL/min Normal EST GFR - AA 120 Result Comment: GFR Calc LAB L501.1255 ml/min Normal Estimated CRCL 110.97 LAB L501.1300 10-20 RATIO BUN/CRE Normal 12.9 LAB L501.2200 8.5-10 mg/dL Low .1 CA 7.9 LAB L501.5300 136-14 mmol/L 5 NA Normal 139 LAB L501.5600 3.5-5. mmol/L Low 1 K 3.0 LAB L501.5900 98-107 mmol/L CL Normal 106 LAB L501.6100 21.0-3 mmol/L 2.0 CO2 Normal 22.0 LAB L501.6200 5-15 GAP Normal 11 Performed By: #### L500.2500 #### [facility] [address] [facility] [place], [address] KIDNEY AND BLADDER Observed: 12/28/2017 Status: F Source: [place] 12:01 AM [facility] REPOSITORY [facility] Imaging Services [address] [place] [address] Kidney and Bladder MR#: [id number] Acct: [id number] Name: FAITH GHOSH Rep #: [id number] : 1960 M 57 From: Milagros Dasilva MD PCP: Mohan Christianson MD Status: ADM IN Study: Kidney and Bladder Date of Exam: 12/28/17 Exam# [id number] Ordering Dr: Giancarlo Nieves MD STUDY: RENAL ULTRASOUND - COMPLETE REASON FOR EXAM: Male, 57 years old. ARF TECHNIQUE: Ultrasound evaluation of the kidneys was performed with real-time and static grace-scale imaging. COMPARISON: November 15, 2017 FINDINGS: RIGHT KIDNEY: Normal location of the right kidney, which is normal in size. The right kidney measures 11.1 cm in length. There is a normal cortex of the right kidney. There is no right renal mass or cyst. There are no right renal calculi. There is no right hydronephrosis. DISTAL RIGHT URETER: There is a visualized right ureteral jet. LEFT KIDNEY: Normal location of the left kidney, which is normal in size. The left kidney measures 11.7 cm in length. There is a normal cortex of the left kidney. There is no left renal mass or cyst. There are no left renal calculi. There is no left hydronephrosis. DISTAL LEFT URETER: There is no demonstrated left ureteral jet. BLADDER: The distended urinary bladder has a volume of 459.42 ml. There is a normal wall thickness of the distended urinary bladder. There is no demonstrated mass within the urinary bladder. There are no demonstrated bladder calculi. US/Kidney and Bladder IMPRESSION: No hydronephrosis identified. Electronically Signed: Milagros Dasilva MD at 17:30 EDT Tel , Service support , CC: oMhan Christianson MD; Giancarlo Nieves MD Facility Maintenance Technician: Signed BEDSIDE GLUCOSE Collected: 12/27/2017 Status: F Source: [place] 11:19 AM [facility] REPOSITORY TYPE CODE TESTS RESULT OUT OF REFERENCE UNITS RANGE LAB L501.080 70-110 mg/dL High BEDSIDE GLU 211 Result Comment: MANAGEMENT OF PATIENT CARE PER NURSING PROTOCOL Performed By: #### L501.080 #### [facility] Point of Care [address] [place] [address] BEDSIDE GLUCOSE Collected: 12/27/2017 Status: F Source: [place] 6:35 AM [facility] REPOSITORY TYPE CODE TESTS RESULT OUT OF REFERENCE UNITS RANGE LAB L501.080 70-110 mg/dL High BEDSIDE GLU 158 Result Comment: MANAGEMENT OF PATIENT CARE PER NURSING PROTOCOL Performed By: #### L501.080 #### [facility] Point of Care [address] [place] [address] Observed: 12/27/2017 Status: F Source: [place] STOOL OCCULT BLOOD 6:20 AM [facility] IFOB REPOSITORY RECOLLECT. PREVIOUS SPECIMEN REJECTED DUE TO LEAKED. 12/27/17 0243 Julia Ramsey. AMY iFOB Occult Blood Negative Performed By: #### M100.7900 #### [facility] [address] [place], [address] Observed: 12/27/2017 Status: F Source: [place] CDIFF (MOLECULAR) 6:20 AM [facility] REPOSITORY Is the patient receiving laxatives? N New/unexplained onset of 3 or more stools in past 24 hrs? Y Cdiff-Molecular Normal Reference Range = Negative C. Diff DNA Negative- No toxigenic C. Diff DNA Detected NAAT METHOD Testing was performed using nucleic acid amplification Performed By: #### M100.6796 #### [facility] [address] [place], [address] HEMOGLOBIN A1C Collected: 12/27/2017 Status: F Source: [place] 1:24 AM [facility] REPOSITORY TYPE CODE TESTS RESULT OUT OF RANGE REFERENCE UNITS LAB L501.9985 4.2-6.3 % High HGB A1C 6.9 Performed By: #### L501.9985 #### [facility] [address] [facility] [place], [address] COMPREHENSIVE METABOLIC Collected: 12/27/2017 Status: F Source: [place] PROFIL 1:24 AM [facility] REPOSITORY TYPE CODE TESTS RESULT OUT OF RANGE REFERENCE UNITS LAB L501.0100 74-106 mg/dL High GLU 150 Result Comment: Fasting Glucose result greater than or equal to 126 mg/dL suggests DIABETES MELLITUS per A.D.A. criteria. Please note revised GLUCOSE reference range effective 2017. LAB L501.1000 7-18 mg/dL High BUN 22 LAB L501.1100 0.70-1.30 mg/dL High CREAT,SERUM 1.42 Result Comment: The validity of the calculated GFR AND GFRAA in patients over 70 years has not been determined. Clinical correlation is essential. LAB L501.1110 >60 mL/min Low EST GFR 55 Result Comment: Non- GFR Calc LAB L501.1115 >60 mL/min Normal EST GFR - AA 66 Result Comment: GFR Calc LAB L501.1255 ml/min Normal Estimated CRCL 66.43 LAB L501.1300 10-20 RATIO Normal BUN/CRE 15.5 LAB L501.1500 6.4-8. g/dL Normal 2 T PROT 7.2 LAB L501.1800 3.2-5. g/dL Low 0 ALB 3.0 LAB L501.1950 2.2-4. g/dL Normal 2 GLOB 4.2 LAB L501.2000 0.9-2. RATIO Low 4 A/G 0.7 LAB L501.2200 8.5-10 mg/dL Normal .1 CA 8.5 LAB L501.4100 15-37 U/L High AST 47 LAB L501.4305 45-117 U/L Normal ALK P 114 LAB L501.4405 16-61 U/L High ALT 63 LAB L501.4600 0.20-1 mg/dL High .00 T BILI 1.80 LAB L501.5300 136-14 mmol/L Low 5 NA 131 LAB L501.5600 3.5-5. mmol/L Low 1 K 3.4 LAB L501.5900 98-107 mmol/L Low CL 97 LAB L501.6100 21.0-3 mmol/L Normal 2.0 CO2 21.0 LAB L501.6200 5-15 Normal GAP 13 Performed By: #### L500.4050 #### [facility] [address] [place], [place], [address] MAGNESIUM Collected: 12/27/2017 Status: F Source: [place] 1:24 AM [facility] REPOSITORY TYPE CODE TESTS RESULT OUT OF RANGE REFERENCE UNITS LAB L501.5200 1.6-2.6 mg/dL Normal MG 2.0 Performed By: #### L501.5200, L503.6030, L503.6550, L506.0250 #### [facility] [address] [facility] [place], [address] IRON+IRON BINDING Collected: 12/27/2017 Status: F Source: [place] CAPACITY 1:24 AM [facility] REPOSITORY TYPE CODE TESTS RESULT OUT OF RANGE REFERENCE UNITS LAB L503.6075 250-450 ug/dL TIBC Normal 258 LAB L503.6150 65-175 ug/dL Low IRON 16 LAB L503.6250 15.0-55.0 % Low IRON SATURATION 6.2 Performed By: #### L501.5200, L503.6030, L503.6550, L506.0250 #### [facility] [address], [place], [address] FERRITIN Collected: 12/27/2017 Status: F Source: [place] 1:24 AM [facility] REPOSITORY TYPE CODE TESTS RESULT OUT OF REFERENCE UNITS RANGE LAB L503.6550 26-388 ng/mL High FERRITIN 467 Performed By: #### L501.5200, L503.6030, L503.6550, L506.0250 #### [facility] [address] [place], [place], [address] FOLATES, (FOLIC ACID) Collected: 12/27/2017 Status: F Source: [place] 1:24 AM [facility] REPOSITORY TYPE CODE TESTS RESULT OUT OF RANGE REFERENCE UNITS LAB L506.0250 3.1-55.4 ng/mL Normal FOLATES 19.70 Performed By: #### L501.5200, L503.6030, L503.6550, L506.0250 #### [facility] [address] [place], [place], [address] CBC W/DIFF, AUTOMATED Collected: 12/27/2017 Status: F Source: [place] 1:24 AM [facility] REPOSITORY TYPE CODE TESTS RESULT OUT OF RANGE REFERENCE UNITS LAB L100.1000 4.4-11.0 K/mm3 Normal WBC 6.9 LAB L100.1200 4.6-6.2 M/mm3 Low RBC 3.88 LAB L100.1300 13.0-16.5 g/dl Low HGB 11.3 LAB L100.1400 40-54 % Low HCT 32.5 LAB L100.1500 80-94 fL Normal MCV 83.8 LAB L100.1600 27.0-32.0 pg Normal MCH 29.1 LAB L100.1700 32-36 g/gl Normal MCHC 34.8 LAB L100.1810 11.6-14.6 % Normal RDW CV 13.3 LAB L100.1820 35.1-43.9 fl Normal RDW SD 39.8 LAB L100.1900 150-450 K/mm3 Low PLT 117 LAB L100.2000 6.2-12.0 fl Normal MPV 11.0 LAB L100.2100 47-70 % High NEUT% 84.7 LAB L100.2200 19-41 % Low LY% 6.9 LAB L100.2300 0-10 % Normal MONO% 7.8 LAB L100.2400 0-5 % Normal EO% 0.4 LAB L100.2500 0-1 % Normal BASO% 0.1 LAB L100.2550 0.0-0.9 % Normal IM GRAN % 0.100 Result Comment: IG% - Immature Granulocytes (promyelocytes, myelocytes and metamyelocytes) > 1% indicates that a LEFT SHIFT is Present. LAB L100.2620 2.0-7.7 X10 3/uL Normal Absolute Neut 5.8 LAB L100.2720 0.83-4.51 X10 3/ul Low Absolute Lymph 0.48 LAB L100.4500 Normal SMEAR COMMENT SCANNED Performed By: #### L100.0100 #### [facility] [address] [place], [address] VITAMIN B12 Collected: 12/27/2017 Status: F Source: [place] 1:24 AM [facility] REPOSITORY TYPE CODE TESTS RESULT OUT OF RANGE REFERENCE UNITS LAB L503.0105 211-911 pg/mL Normal Vitamin B12 613 Performed By: #### L503.0105 #### [facility] [address] [place], [address] HISTORY AND PHYSICAL Observed: 12/27/2017 Status: F Source: [place] EXAM 12:52 AM [facility] REPOSITORY [facility] Medical Records Department [address] [place] [address] [place] [address] History and Physical 12/26/17 2303 MR#: [id number] Acct: [id number] Name: FAITH GHOSH Rep #: [id number] : 1960 57 From: Carlie Gayle PCP: Mohan Christianson MD Status: ADM IN Y Location: MS3 [id number] Problem List (1) Sepsis Status: Acute Qualifiers: Sepsis type: sepsis due to unspecified organism Qualified Code(s): A41.9 - Sepsis, unspecified organism (2) UTI (urinary tract infection) Status: Acute Qualifiers: Urinary tract infection type: site unspecified (3) LUIS ANTONIO (acute kidney injury) Status: Acute (4) Hyponatremia Status: Acute (5) Pulmonary embolism Status: Chronic Qualifiers: Pulmonary embolism type: other Chronicity: unspecified Acute cor pulmonale presence: without acute cor pulmonale Qualified Code(s): I26.99 - Other pulmonary embolism without acute cor pulmonale (6) S/P ileostomy Status: Chronic (7) HTN (hypertension) Status: Chronic Qualifiers: Hypertension type: essential hypertension Qualified Code(s): I10 - Essential (primary) hypertension (8) Diabetes mellitus Status: Chronic Qualifiers: Diabetes mellitus type: type 2 Diabetes mellitus rodent exterminator insulin use: without penitentiary use Diabetes mellitus complication status: with unspecified complications Qualified Code(s): E11.8 - Type 2 diabetes mellitus with unspecified complications (9) HLD (hyperlipidemia) Status: Chronic Qualifiers: Hyperlipidemia type: pure hypercholesterolemia Qualified Code(s): E78.00 - Pure hypercholesterolemia, unspecified; E78.0 - Pure hypercholesterolemia (10) Schizoaffective disorder Status: Chronic Qualifiers: Schizoaffective disorder type: unspecified Qualified Code(s): F25.9 - Schizoaffective disorder, unspecified History of Present Illness Date of Admission: 12/26/17 Chief Complaint: Fatigue, confusion, fever The patient is a 57 y/o M w/ PMHx: Diabetes mellitus type II, HTN, HLD, Tobacco use history, Anxiety and Depression/Schizoaffective disorder, GERD, Recent 11/13/17 admission w/ acute Pulmonary Embolism, s/p colon resection and ileostomy secondary to severe chronic constipation w/ issues ongoing w/ high output w/ dehydration and LUIS ANTONIO who now re-presents from SNF to the [facility] ED on 12/26/17 with history of increased fatigue, lethargy, confusion as well as weakness for the last 48 hours, progressively worsening. Patient upon ED presentation febrile, but family and patient deny fever at facility. He notes attempts to maintain appropriate hydration but from discussion w/ family intake has not been adequate over the last several days. In the ED work-up included T 100.3, heart rate 98, BP 122/62, respiratory rate 25, 95% room air, CBC with WBC 7.4, hemoglobin 12, platelet 99, coags with PT 18.2, INR 1.5, PTT 36.5, CMP with sodium 130, chloride 95, BUN/creatinine 23/1.54, glucose 152, total bilirubin 2.0, urinalysis concerning for urinary tract infection with urine culture pending per ED, culture 2 pending per ED, chest x-ray with no acute findings. In the emergency room patient administered normal saline and IV Rocephin. Past Medical History Past Medical History (Chronic Problems): Chronic Problems Pulmonary embolism (Chronic) S/P ileostomy (Chronic) HTN (hypertension) (Chronic) Diabetes mellitus (Chronic) HLD (hyperlipidemia) (Chronic) Schizoaffective disorder (Chronic) Nicotine abuse (Chronic) Allergies No Known Allergies Allergy (Verified 11/13/17 18:10) Home Medications: Ambulatory Orders Medication Instructions Recorded Atenolol [Tenormin (beta vineet)] 25 mg PO DAILY 02/15/15 Clozapine [Clozaril] 100 mg PO BID 02/15/15 Lisinopril [Zestril] 2.5 mg PO DAILY 02/15/15 Surgical History: - - Ileostomy w/ colon resection. Psychiatric History: Anxiety, Depression, Schizophrenia Lives: Shelter Smoking Status: Never smoker - Quit 10/2017 with transition to SNF. Tobacco Use: Non-smoker Alcohol: None Drugs: None - *Family History Maternal History Items: High Cholesterol Paternal History Items: Unknown Review of Systems Constitutional: Reports: Anorexia, Fever, Malaise, Weakness, Fatigue. Denies: Chills, Weight Change HEENT: Denies: Head Aches, Sinus Congestion, Sinus Drainage Cardiovascular: Denies: Chest Pain, Palpitations Respiratory: Denies: Cough, Shortness of breath at rest, Sputum production Gastrointestinal: Reports: - - High ostomy output.. Denies: Abdominal Pain, Nausea, Vomiting Genitourinary: Reports: Retention. Denies: Dysuria Musculoskeletal: Denies: Joint Pain, Joint Tenderness Skin: Denies: Rash, Wounds Neurological: Reports: Confusion. Denies: Focal weakness, Numbness, Tingling Psychiatric: Reports: Anxiety, Depression. Denies: Homicidal Ideations, Suicidal Ideations Hematologic/ Lymphatic: Reports: Easy Bruising, Easy Bleeding. Denies: Anemia VTE Information - Inpt Only VTE Present on Admission: No VTE Mechan Device Prophylaxis: SCD's VTE Pharm Prophylaxis ordered?: No Reason prophylaxis not ordered:: Treatment Not Indicated Patient Problems: Active and Suspected Problems Sepsis (Acute) UTI (urinary tract infection) (Acute) LUIS ANTONIO (acute kidney injury) (Acute) Hyponatremia (Acute) Subjective: Seated upright in the ED bed, fatigued appearing, NAD. Objective: Physical Examination: General: awake, alert, oriented to self, place, recent events, less interactive and mumbling per Family report, remains cooperative, seated upright in the ED bed in no apparent distress, fatigued appearance. Skin: normal color, turgor, no icterus, cyanosis. HEENT: AT/NC, EOMI, PERRLA, dry MM, no carotid bruits or JVD noted. Lungs: Diminished BL bases, poor effort, no rales, ronchi or wheezing. Heart: Regular rate and rhythm; no gallop, rub audible. Abdomen: soft, ileostomy in place, no suprapubic TTP and otherwise NTTP, ND, normal BS, no HSM. Extremities: no cyanosis, clubbing, or edema. Neurological: patient awake, alert, oriented as noted; cognitive function decreased from baseline; pupils equally reactive to light and accomodation; cranial nerves II-XII grossly normal, moving all 4 extremities, no focal deficits, strength severely globally decreased. Psychiatric: affect appears lethargic, flat, no acute evidence of depressive or anxiety feelings. - Physical Exam Vital Signs Temp Pulse Resp BP Pulse Ox 98.4 F 95 18 105/78 97 12/26/17 22:38 12/26/17 22:38 12/26/17 22:38 12/26/17 22:38 12/26/17 22:38 Oxygen Delivery Method Room Air Weight: 206 lb 12.697 oz Body Mass Index (BMI) 27.3 Finger Stick Blood Glucose 206 Laboratory Tests Past 24 Hrs WBC 7.4 RBC 4.20 L Hgb 12.0 L Hct 35.5 L MCV 84.5 MCH 28.6 WBC RBC Hgb Hct MCV MCH MCHC RDW RDW Differential Assessment/Plan All Active Problems Sepsis (Acute) UTI (urinary tract infection) (Acute) LUIS ANTONIO (acute kidney injury) (Acute) Hyponatremia (Acute) ARF (acute renal failure) (Acute) The patient is a 57 y/o M w/ PMHx: Diabetes mellitus type II, HTN, HLD, Tobacco use history, Anxiety and Depression/Schizoaffective disorder, GERD, Recent 11/13/17 admission w/ acute Pulmonary Embolism, s/p colon resection and ileostomy secondary to severe chronic constipation w/ issues ongoing w/ high output w/ dehydration and LUIS ANTONIO who now re-presents from SNF to the [facility] ED on 12/26/17 with history of increased fatigue, lethargy, confusion as well as weakness for the last 48 hours, progressively worsening. (1) Acute Sepsis secondary to Acute Urinary Tract Infection: Will admit to [facility] upon ED evaluation remarkable, pending UCx, continue IVFs, monitor I/Os, continue IV Rocephin w/ transition as able pending sensitivities and speciation. Bld cx x 2 obtained in the ED. (2) Acute kidney injury: Secondary to poor intake and acute presentation, #1, #4. Admission BUN/Cr 23/1.54, prior baseline creatinine noted to be 0.7. Will hydrate, hold nephrotoxic medications and repeat chemistry in AM. Will monitor w/ bladder scans and catheterize as needed with history of retention. Maintain on flomax. (3) Hyponatremia, Hypovolemic: Admission Na 130, likely secondary to #1, #2, #4, continue hydration and repeat BMP in AM. (4) Chronic Constipation s/p Ileostomy w/ High Output: s/p colon resection and ileostomy secondary to severe chronic constipation at , notable continued high output, maintain on scheduled immodium, following w/ [facility] Surgery, trend I AND Os closely, biomedical engineering supervisor consultation pending. Nutrition consulted. (5) Thrombocytopenia, Anemia, New Onset: Hgb 12, Plt 99, last Hgb 11/16/17 13.2 and plt 11/16/17 283, was treated at that time for acute PE and placed on anticoagulation. Will repeat CBC in AM, pending iron panel, ferritin, folic acid guiac. (6) Recent Pulmonary Embolism: Continue Eliquis regimen. (7) Diabetes mellitus type II: Hold oral home regimen, ADA diet, accu checks w/ ISS. (8) Anxiety and Depression/Schizoaffective disorder: (9) BPH: Continue home flomax regimen. (10) Hyperlipidemia: Continue home statin regimen. (11) Hypertension: Continue home regimen including atenolol, holding HCTZ and ACEI secondary to LUIS ANTONIO, PRN hydralazine. (12) DVT Prophylaxis: SCDs, eliquis. (13) CODE status: Patient has living will and mother is HCPOA. Discussed CODE status at length including difference between FULL code, DNR-CCA and DNR-CC status. Following discussions about the differences in these status, confirmed Full Code. Advanced Care Planning Face to Face Time: 17 minutes. Code Visit Inpatient E AND M: 06766 Init Hosp L3 Procedures: 11750 Advncd Care Plan 30 Min 12/27/17 0052 <Electronically signed by Carlie Gayle > Date Carlie Gayle Cosigner Signature: Date (if applicable) CC: Carlie Gayle; Mohan Christianson MD Signed EMERGENCY DEPARTMENT Observed: 12/26/2017 Status: F Source: [place] SUMMARY 11:12 PM [facility] REPOSITORY [facility] Medical Records Department [address] [place] [address] Emergency Department Summary 12/26/17 2310 MR#: [id number] Acct: [id number] Name: FAITH GHOSH Rep #: [id number] : 1960 57 From: Shaw Lawson MD PCP: Mohan Christianson MD Status: REG ER - ER Visit Summary Date of Service: 12/26/17 Chief Complaint: Altered mental status History of Present Illness: The patient is a 57 M who comes from a [facility]. Nursing noted that he was confused today. He is normally alert and oriented 3. Family members noted that he has been mumbling today. Patient denies any pain. He denies headache. No nausea, vomiting or diarrhea. He has a history of acute renal failure. He has an ileostomy that was placed a couple months ago. Physical Examination: Vital signs reviewed. HEENT exam unremarkable. Heart is regular rate and rhythm without murmurs. Lungs are clear to auscultation. Abdomen is soft and nontender. Is an ileostomy in place. Extremities reveal no edema. Skin exam normal. Neurologic exam is that he is mumbling. He could tell me the month and where he is active in his name currently. He does have a parkinsonian twitch at baseline. Test Results: EKG is sinus rhythm with nonspecific ST-T wave changes. White blood cell count normal. Lactate normal. Creatinine 1.54. Urinalysis reveals greater than 100 white blood cells Emergency Department Course and Treatment: She has a UTI causing some delirium. He also has acute kidney injury. His baseline creatinine was 0.74. He will be hydrated with fluids. Given Rocephin. Admitted to the hospital Treatment Plan: [] Disposition: Admit Impression: UTI, AK I, sepsis This note was generated with Smove dictation software. It may contain incorrect words, spelling, and punctuation that were not noted in review of the chart prior to signing ED Disposition - Plan for ED Patient: Chief Complaint: Confusion Referrals: Mohan Christianson MD [Primary Care Provider] - What to do if you have Problems For any increased pain, shortness of breath, bleeding, nausea or vomiting, chest pain, or any unexpected problems, contact your Primary Care Provider. Call [facility] ([phone]) or report to the closest Emergency Room. Call 911 if necessary. 12/26/17 5842 <Electronically signed by Shaw Lawson MD> Date Shaw Lawson MD Cosigner Signature (If Indicated): Date CC: Mohan Christianson MD URINALYSIS, COMPLETE Collected: 12/26/2017 Status: F Source: [place] 10:19 PM [facility] REPOSITORY Order Comment: How was Urine Obtained? TELEPHONE SERVICE ADVISER TO SPECIFY TYPE CODE TESTS RESULT OUT OF REFERENCE UNITS RANGE LAB L400.3000 Yellow COLOR Normal Yellow LAB L400.3050 Clear CLARITY Normal Cloudy LAB L400.3200 Normal mg/dl GLUCOSE, UR Normal Normal LAB L400.3300 Negative mg/dL BILIRUBIN Normal URINE Negative LAB L400.3400 Negative mg/dl KETONE UR High 15 LAB L400.3465 1.002-1.030 SP.GR. Normal DIPSTX 1.020 LAB L400.3550 5.0 - 8.0 pH UR Normal 5.0 LAB L400.3600 Negative mg/dl PROT DIPSTX High 100 LAB L400.3700 Normal mg/dl UROBILI Normal Normal LAB L400.3750 Negative NITRITE UR Normal Negative LAB L400.3780 Negative /ul OCCULT High BLOOD-UR 250 LAB L400.3800 Negative /ul LEUK High ESTERASE 500 LAB L400.4050 0-5 /hpf WBC Normal >100 SEEN LAB L400.4100 0-5 /hpf RBC-UA Normal 0-5 SEEN LAB L400.4150 0-5 /hpf SQUAM EPI Normal 0 SEEN LAB L400.4300 None Seen /hpf BACTERIA Normal 4+ LAB L400.4350 <or=2+ /hpf MUCUS, Normal URINE 0 SEEN LAB L400.4200 0-5 /hpf Normal TRANSITIONAL EP 0-5 SEEN LAB L400.4450 0-5 /lpf FINE GRAN Normal CAST 0-5 SEEN Performed By: #### L400.0001 #### [facility] [place], [address] Observed: 12/26/2017 Status: F Source: [place] CULTURE, URINE 10:19 PM [facility] REPOSITORY Urine Culture ORGANISM 1: Presumptive E. coli [place] Count >100,000 Presumptive E. coli: REACTION Amoxacillin/Clavulanic Acid $ <=2 S Ampicillin $ <=2 S Ampicillin/Sulbactam $ <=2 S Cefazolin $ <=4 S Cefepime $ <=1 S Ceftriaxone $ <=1 S Ciprofloxacin $ <=0.25 S ESBL - Ertapenim $$$ <=0.5 S Gentamicin $ <=1 S Imipenem *NF <=0.25 S Levofloxacin $ <=0.12 S Nitrofurantoin $ <=16 S Piperacillin/Tazobactam $$ <=4 S Tobramycin $ <=1 S Trimethoprim/Sulfametho $ <=20 S (NF) indicates non-formulary drug at [facility]. Approval by Infectious Disease Specialist required before non-formulary drugs may be ordered and/or dispensed. Performed By: #### M100.0650 #### [facility] [address] [place], [address] Observed: 12/26/2017 Status: F Source: [place] CULTURE, BLOOD (WB) 10:07 PM [facility] REPOSITORY BC No growth in 5 days. Performed By: #### M200.1000 #### [facility] [address] [place], [address] CBC W/DIFF, AUTOMATED Collected: 12/26/2017 Status: F Source: [place] 9:55 PM [facility] REPOSITORY TYPE CODE TESTS RESULT OUT OF RANGE REFERENCE UNITS LAB L100.1000 4.4-11.0 K/mm3 Normal WBC 7.4 LAB L100.1200 4.6-6.2 M/mm3 Low RBC 4.20 LAB L100.1300 13.0-16.5 g/dl Low HGB 12.0 LAB L100.1400 40-54 % Low HCT 35.5 LAB L100.1500 80-94 fL Normal MCV 84.5 LAB L100.1600 27.0-32.0 pg Normal MCH 28.6 LAB L100.1700 32-36 g/gl Normal MCHC 33.8 LAB L100.1810 11.6-14.6 % Normal RDW CV 13.5 LAB L100.1820 35.1-43.9 fl Normal RDW SD 41.3 LAB L100.1900 150-450 K/mm3 Low PLT 99 LAB L100.2000 6.2-12.0 fl Normal MPV 9.7 LAB L100.2100 47-70 % High NEUT% 81.8 LAB L100.2200 19-41 % Low LY% 7.4 LAB L100.2300 0-10 % High MONO% 10.7 LAB L100.2400 0-5 % Normal EO% 0.0 LAB L100.2500 0-1 % Normal BASO% 0.1 LAB L100.2550 0.0-0.9 % Normal IM GRAN % 0.000 Result Comment: IG% - Immature Granulocytes (promyelocytes, myelocytes and metamyelocytes) > 1% indicates that a LEFT SHIFT is Present. LAB L100.2620 2.0-7.7 X10 3/uL Normal Absolute Neut 6.1 LAB L100.2720 0.83-4.51 X10 3/ul Low Absolute Lymph 0.55 LAB L100.4500 Normal SMEAR COMMENT SEE COMMENT Result Comment: LYMPHOPENIA NOTED LAB L100.5500 ADEQ Normal PLT EST MOD DEC LAB L100.7000 NORM C AND NORMAL Normal C RED CELL NORM MORPH C+C Performed By: #### L100.0100 #### [facility] [address] [facility] [place], [place], [id number] PROTHROMBIN TIME W/INR Collected: 12/26/2017 Status: F Source: [place] 9:55 PM [facility] REPOSITORY TYPE CODE TESTS RESULT OUT OF RANGE REFERENCE UNITS LAB L300.4150 11.7-14.9 SECONDS High PROTIME 18.2 LAB L300.4200 Normal INR 1.5 Performed By: #### L300.3900, L300.4310 #### [facility] [address] [facility] [place], [place], [address] PARTIAL THROMBOPLAST Collected: 12/26/2017 Status: F Source: [facility] 9:55 PM [facility] REPOSITORY TYPE CODE TESTS RESULT OUT OF REFERENCE UNITS RANGE LAB L300.4310 24.1-36.2 Seconds High PTT 36.5 Performed By: #### L300.3900, L300.4310 #### [facility] [address] [place], [place], [address] COMPREHENSIVE METABOLIC Collected: 12/26/2017 Status: F Source: [place] PROFIL 9:55 PM [facility] REPOSITORY TYPE CODE TESTS RESULT OUT OF RANGE REFERENCE UNITS LAB L501.0100 74-106 mg/dL High GLU 152 Result Comment: Fasting Glucose result greater than or equal to 126 mg/dL suggests DIABETES MELLITUS per A.D.A. criteria. Please note revised GLUCOSE reference range effective 2017. LAB L501.1000 7-18 mg/dL High BUN 23 LAB L501.1100 0.70-1.30 mg/dL High CREAT,SERUM 1.54 Result Comment: The validity of the calculated GFR AND GFRAA in patients over 70 years has not been determined. Clinical correlation is essential. LAB L501.1110 >60 mL/min Low EST GFR 50 Result Comment: Non- GFR Calc LAB L501.1115 >60 mL/min Normal EST GFR - AA 61 Result Comment: GFR Calc LAB L501.1255 ml/min Normal Estimated CRCL 61.25 LAB L501.1300 10-20 RATIO Normal BUN/CRE 14.9 LAB L501.1500 6.4-8. g/dL Normal 2 T PROT 7.3 LAB L501.1800 3.2-5. g/dL Low 0 ALB 2.9 LAB L501.1950 2.2-4. g/dL High 2 GLOB 4.4 LAB L501.2000 0.9-2. RATIO Low 4 A/G 0.7 LAB L501.2200 8.5-10 mg/dL Normal .1 CA 8.8 LAB L501.4100 15-37 U/L Normal AST 36 LAB L501.4305 45-117 U/L Normal ALK P 117 LAB L501.4405 16-61 U/L Normal ALT 60 LAB L501.4600 0.20-1 mg/dL High .00 T BILI 2.00 LAB L501.5300 136-14 mmol/L Low 5 NA 130 LAB L501.5600 3.5-5. mmol/L Normal 1 K 3.6 LAB L501.5900 98-107 mmol/L Low CL 95 LAB L501.6100 21.0-3 mmol/L Normal 2.0 CO2 23.0 LAB L501.6200 5-15 Normal GAP 12 Performed By: #### L500.4050 #### [facility] [address] [place], [address] LACTIC ACID Collected: 12/26/2017 Status: F Source: [place] 9:55 PM [facility] REPOSITORY Order Comment: Yes/No query for Sepsis Lactate Rule Y TYPE CODE TESTS RESULT OUT OF RANGE REFERENCE UNITS LAB L503.6005 0.4-2.0 mmol/L Normal LACTIC ACID 1.6 Performed By: #### L503.6005 #### [facility] [address] [place], [address] Observed: 12/26/2017 Status: F Source: [place] CULTURE, BLOOD (WB) 9:55 PM [facility] REPOSITORY BC No growth in 5 days. Performed By: #### M200.1000 #### [facility] [address] [place], [address] CHEST 1 VIEW Observed: 12/26/2017 Status: F Source: [place] (PORTABLE) 9:49 PM [facility] REPOSITORY [facility] Imaging Services [address] [place] [address] Chest 1 View (Portable) MR#: [id number] Acct: [id number] Name: FAITH GHOSH Rep #: [id number] : 1960 M 57 From: Lily Madsen MD PCP: Mohan Christianson MD Status: REG ER Study: Chest 1 View (Portable) Date of Exam: 12/26/17 Exam# [id number] Ordering Dr: Shaw Lawson MD STUDY: X-RAY CHEST REASON FOR EXAM: Male, 57 years old. Cough. TECHNIQUE: Portable chest. COMPARISON: 11/13/2017. FINDINGS: The lungs are clear and expanded. There is no demonstrated pleural abnormality. Normal size heart. Normal mediastinum and memo. Normal visualized pulmonary arteries. Normal visualized aortic arch and descending thoracic aorta. Normal visualized thoracic spine. Normal visualized ribs, clavicles, and shoulders. There is no demonstrated abnormality of the visualized soft tissue structures of the upper abdomen. RAD/Chest 1 View (Portable) IMPRESSION: Normal x-ray examination of the chest. Electronically Signed: Lily Madsen MD at 22:47 EDT Tel , Service support , CC: Shaw Lawson MD; Mohan Christianson MD Facility Maintenance Technician: Signed CBC W/DIFF, AUTOMATED Collected: 12/24/2017 Status: F Source: [place] 9:44 AM [facility] REPOSITORY TYPE CODE TESTS RESULT OUT OF RANGE REFERENCE UNITS LAB L100.1000 4.4-11.0 K/mm3 High WBC 14.6 LAB L100.1200 4.6-6.2 M/mm3 Normal RBC 4.96 LAB L100.1300 13.0-16.5 g/dl Normal HGB 14.0 LAB L100.1400 40-54 % Normal HCT 42.2 LAB L100.1500 80-94 fL Normal MCV 85.1 LAB L100.1600 27.0-32.0 pg Normal MCH 28.2 LAB L100.1700 32-36 g/gl Normal MCHC 33.2 LAB L100.1810 11.6-14.6 % Normal RDW CV 13.5 LAB L100.1820 35.1-43.9 fl Normal RDW SD 41.5 LAB L100.1900 150-450 K/mm3 Normal PLT 162 LAB L100.2000 6.2-12.0 fl Normal MPV 10.8 LAB L100.2100 47-70 % High NEUT% 85.9 LAB L100.2200 19-41 % Low LY% 5.6 LAB L100.2300 0-10 % Normal MONO% 8.2 LAB L100.2400 0-5 % Normal EO% 0.1 LAB L100.2500 0-1 % Normal BASO% 0.1 LAB L100.2550 0.0-0.9 % Normal IM GRAN % 0.100 Result Comment: IG% - Immature Granulocytes (promyelocytes, myelocytes and metamyelocytes) > 1% indicates that a LEFT SHIFT is Present. LAB L100.2620 2.0-7.7 X10 3/uL High Absolute Neut 12.5 LAB L100.2720 0.83-4.51 X10 3/ul Low Absolute Lymph 0.81 Performed By: #### L100.0100 #### [facility] [address] [place], [address] PROGRESS Observed: 12/23/2017 Status: COMPLETED Source: [place] 1:25 PM [facility] RE[facility] HNO ID: [id number] Author: Harriett (Rn) STANLEY Mckay Service: (none) Author Type: Registered Nurse Type: Progress Notes Filed: 12/23/2017 1:49 PM Note Text: ET/WOCN Nursing Consult Topic: ET/WOCN Consultation Note ET Outcome: The patient is here to see Dr. Fowler and [facility] Nursing. He is currently residing in an assisted living facility. The pouching system is replaced by the nursing staff, but the patient is independent with emptying the pouch, however the tail appears soiled today. Revised the pouching system as described below, reviewed proper emptying procedure. An ostomy order supply form was provided. ET's Next Scheduled Visit: as needed Stoma Type: Loop ileostomy Diameter: rounds to 05/11 Location: RUQ Protrusion: Budded Mucosal condition and color: Red and moist Mucocutaneous junction Intact Peristomal Skin: Clear except for minor pink tissue located from 9-3 o'clock adjacent to the stoma Location of Skin Impairment: see above Peristomal contour: Flat Supportive Tissue: Semisoft Character of output: thick brown effluent Emptying frequency per day: 8 times Current pouching system: 2 1/4 [place] New Image convex flexible flange with barrier ring, drainable pouch Current wearing time: 2-3 days Recommendations: Skin Care: dust with Stomahesive powder Pouching System: 1 1/8 Coloplast Sensura Michael convex light one piece drainable pouch, Coloplast 4.2mm Brava ring, Coloplast Elastic Barrier strips X2 Wear Time: 3-4 days Midline Abdominal Incision: N/A Comment: n/a Time Increment: 1 hour Harriett Mckay RN, BSN, CWOCN Tester Electronic Scale Pager [phone] (M-F 7-4 and 7-3 on weekends) CNNURSE Observed: 12/23/2017 Status: COMPLETED Source: [place] 1:00 PM [facility] REPOS[facility] Nurse Visit ([facility]) FAITH GHOSH ([id number]) 1960 M Date Time Provider Department 12/23/17 1:00 PM STOMA THERAPY [facility] During your visit today, we recorded the following information about you: Harriett Mckay RN, RN 12/23/2017 12:59 [place] [address] OSTOMY SUPPLY ORDER FORM Patient: Faith Ghosh Patient Address: [address] [place] [address] [place] [address] Gender: male Date of : 1960 Type of Stoma: Loop Ileostomy Diagnosis: Constipation K59.0 Item and Description Qty 30 Day Use Adhesive Removers: ConvaTec Sensi-Care No Sting #[id number] Coloplast [place] One-Piece Drainable Pouches: #85632 Convex Light 1 05/03 Precut Misc Accessory: Coloplast Elastic Barrier Strips # [id number] Moldable Ring: Coloplast Brava 4.2mm Moldable # [id number] Powder: Convatec Stomahesive # [id number] 30/Box 10/Box 20/Box 10/Box 1 Bottle 1 Box 2 Boxes 2 Boxes 2 Boxes 1 Bottle Refills: 11 Attending Physician: Dr. Fowler For immediate authorization, please contact the physician?s office. [facility] Nurse: BRAD Peck Note: n/a SIGNATURE: Harriett Mckay RN PATIENT NAME: Faith Ghosh DATE: December 23, 2017 TIME: 12:56 PM CONTACT #: [phone] Harriett Mckay RN, RN 12/23/2017 1:49 PM Signed ET/WOCN Nursing Consult Topic: ET/WOCN Consultation Note ET Outcome: The patient is here to see Dr. Fowler and [facility] Nursing. He is currently residing in an assisted living facility. The pouching system is replaced by the nursing staff, but the patient is independent with emptying the pouch, however the tail appears soiled today. Revised the pouching system as described below, reviewed proper emptying procedure. An ostomy order supply form was provided. ET's Next Scheduled Visit: as needed Stoma Type: Loop ileostomy Diameter: rounds to 05/11 Location: RUQ Protrusion: Budded Mucosal condition and color: Red and moist Mucocutaneous junction Intact Peristomal Skin: Clear except for minor pink tissue located from 9-3 o'clock adjacent to the stoma Location of Skin Impairment: see above Peristomal contour: Flat Supportive Tissue: Semisoft Character of output: thick brown effluent Emptying frequency per day: 8 times Current pouching system: 2 04/29 [place] New Image convex flexible flange with barrier ring, drainable pouch Current wearing time: 2-3 days Recommendations: Skin Care: dust with Stomahesive powder Pouching System: 1 05/03 Coloplast Sensura Michael convex light one piece drainable pouch, Coloplast 4.2mm Brava ring, Coloplast Elastic Barrier strips X2 Wear Time: 3-4 days Midline Abdominal Incision: N/A Comment: n/a Time Increment: 1 hour Harriett Mckay RN, BSN, CWOCN Tester Electronic Scale Pager [phone] (M-F 7-4 and 7-3 on weekends) Harriett Mckay RN, RN 12/23/2017 1:51 PM Signed Addended by: HARRIETT MCKAY on: 12/23/2017 01:51 PM Modules accepted: SmartSet Referring Provider: SELF [[id number]] Allergies As of Date: 12/23/2017 (No Known Allergies) Date Reviewed: 12/23/2017 Reviewed by: Anne Fowler - Fully Assessed Primary Visit Diagnosis:Attention to ileostomy (HCC) [Z43.2] Prescriptions as of 12/23/2017 Sig: ACETAMINOPHEN 500 MG TABLET Take 2 tablets by mouth every* IBUPROFEN 800 MG TABLET Take 1 tablet by mouth every * NIACIN ORAL Take 1 capsule by mouth once * METAMUCIL ORAL Take 1 tablet by mouth once d* ATENOLOL 25 MG TABLET Take 1 tablet by mouth once d* ALBUTEROL SULFATE HFA 90 MCG/* Inhale 1-2 Puffs as instructe* PANTOPRAZOLE ORAL Take 40 mg by mouth once frederic* LINACLOTIDE 290 MCG CAPSULE Take 1 capsule by mouth once * B-12 DOTS ORAL Take 1 tablet by mouth once d* ASCORBIC ACID (VITAMIN C) 100* Take 100 mg by mouth once francois* CLOZAPINE 100 MG TABLET Take 100 mg by mouth once francois* HYDROCHLOROTHIAZIDE 50 MG TAB* Take 50 mg by mouth once frederic* BENZTROPINE 1 MG TABLET Take 1 mg by mouth twice frederic* MONTELUKAST 10 MG TABLET TAKE 1 TABLET BY MOUTH DAILY * MAGNESIUM OXIDE 500 MG TABLET Take 500 mg by mouth once francois* METFORMIN 1,000 MG TABLET Take 1,000 mg by mouth daily * JANUMET XR 50 MG-1,000 MG TAB* TAKE 1 TABLET BY MOUTH TWICE * LOVASTATIN 20 MG TABLET Take 1 tablet by mouth daily * OMEGA-3 ACID ETHYL ESTERS 1 G* Take 2 capsules by mouth twic* BLOOD-GLUCOSE METER KIT 1 Each as needed. One Touch M* BLOOD SUGAR DIAGNOSTIC STRIPS Test blood sugar(s) 2 times d* LANCETS 28 GAUGE Test once daily. Dx: E11.9 -* LISINOPRIL 2.5 MG TABLET Take 1 tablet by mouth once d* PERPHENAZINE 8 MG TABLET Take 1 tablet by mouth four t* LORAZEPAM 2 MG TABLET Take 1 tablet by mouth twice * ASPIRIN 81 MG TABLET,DELAYED * Take 1 tablet by mouth once d* Problem List As Of Date 12/23/2017 Noted Resolved Diabetes (HCC) [E11.9] INVALID FOR* More... Hypertension [I10] INVALID FOR* More... Hyperlipidemia [E78.5] INVALID FOR* More... Paranoid schizophrenia (HCC) [F20.0] INVALID FOR* More... COPD (chronic obstructive pulmonary disease) (H*INVALID FOR* More... Blood per rectum [K62.5] INVALID FOR* Constipation [K59.00] INVALID FOR* Outlet dysfunction constipation [K59.02] INVALID FOR* Pelvic floor dysfunction [M62.89] INVALID FOR* Ileostomy in place (HCC) [Z93.2] INVALID FOR* Encounter for ostomy care education [Z71.89] INVALID FOR* Postoperative pain [G89.18] INVALID FOR* Nicotine use disorder, F17.2 [F17.200] INVALID FOR* Urinary retention [R33.9] INVALID FOR*11/03/[address] [Z92.89] INVALID FOR*11/03/2017 Encounter Status:Closed by HARRIETT MCKAY on 12/23/17 PROGRESS Observed: 12/23/2017 Status: COMPLETED Source: [place] 12:56 PM [facility] REPOSITORY HNO ID: [id number] Author: Harriett (Rn) STANLEY Mckay Service: (none) Author Type: Registered Nurse Type: Progress Notes Filed: 12/23/2017 12:59 PM Note Text: The [address] [address] OSTOMY SUPPLY ORDER FORM Patient: Faith Ghosh Patient Address: [address] [place] [address] [place] [address] Gender: male Date of : 1960 Type of Stoma: Loop Ileostomy Diagnosis: Constipation K59.0 Item and Description Qty 30 Day Use Adhesive Removers: ConvaTec Sensi-Care No Sting #[id number] Coloplast Michael One-Piece Drainable Pouches: #[id number] Convex Light 1 05/03 Precut Misc Accessory: Coloplast Elastic Barrier Strips # [id number] Moldable Ring: Coloplast Brava 4.2mm Moldable # [id number] Powder: Convatec Stomahesive # [id number] 30/Box 10/Box 20/Box 10/Box 1 Bottle 1 Box 2 Boxes 2 Boxes 2 Boxes 1 Bottle Refills: 11 Attending Physician: Dr. Fowler For immediate authorization, please contact the physician?s office. [facility] Nurse: BRAD Peck Note: n/a SIGNATURE: Harriett Mckay RN PATIENT NAME: Faith Ghosh DATE: December 23, 2017 TIME: 12:56 PM CONTACT #: [phone] PROGRESS Observed: 12/23/2017 Status: COMPLETED Source: [place] 11:50 AM [facility] REPOSITORY HNO ID: [id number] Author: Anne Fowler Service: (none) Author Type: Physician Type: Progress Notes Filed: 12/23/2017 12:59 PM Note Text: Pt returns for follow up s/p: 10/25/2017: Laparoscopic loop ileostomy creation To treat slow transit and outlet obstruction constipation Prior to this, pt had been offered and declined escalation of medical therapy. He reports he was admitted to OSH with high output ileostomy Now taking imodium 3 tabs, once per day, with appropriate output Also recently with PE, now on Eliquis On exam: Ostomy pink, thick output Abdomen soft, nontender Wounds healed Plan: 1. He is interested in eventual ostomy reversal. We discussed that, at this point, he would likely go back to the symptoms he had preop. Will start with pelvic floor physical therapy as a first step He will follow up in 3 months for re-evaluaiton with anorectal manometry if he is felt to have improved as per PT Anne Fowler MD CNOV Observed: 12/23/2017 Status: COMPLETED Source: [place] 11:40 AM [facility] REPOSITORY Office Visit (IRMA) FAITH GHOSH ([id number]) 1960 M Date Time Provider Department 12/23/17 11:40 AM ANNE FOWLER During your visit today, we recorded the following information about you: Weight Height 93.4 kg 1.854 m Anne Fowler MD 12/23/2017 12:59 PM Signed Pt returns for follow up s/p: 10/25/2017: Laparoscopic loop ileostomy creation To treat slow transit and outlet obstruction constipation Prior to this, pt had been offered and declined escalation of medical therapy. He reports he was admitted to OSH with high output ileostomy Now taking imodium 3 tabs, once per day, with appropriate output Also recently with PE, now on Eliquis On exam: Ostomy pink, thick output Abdomen soft, nontender Wounds healed Plan: 1. He is interested in eventual ostomy reversal. We discussed that, at this point, he would likely go back to the symptoms he had preop. Will start with pelvic floor physical therapy as a first step He will follow up in 3 months for re-evaluaiton with anorectal manometry if he is felt to have improved as per PT Anne Fowler MD Referring Provider: SELF [200] Allergies As of Date: 12/23/2017 (No Known Allergies) Date Reviewed: 12/23/2017 Reviewed by: Anne Fowler - Fully Assessed Reason for Visit: Surgical Followup [104] Primary Visit Diagnosis:Slow transit constipation [K59.01] Other Visit Diagnoses:Outlet dysfunction constipation [K59.02] Pelvic floor dysfunction [M62.89] Ileostomy in place ([facility]) [Z93.2] Order(s):CONSULT TO PHYSICAL THERAPY [5366] Order #: [id number]: 1 Prescriptions as of 12/23/2017 Sig: APIXABAN 5 MG TABLET Take by mouth twice daily. ACETAMINOPHEN 500 MG TABLET Take 2 tablets by mouth every* IBUPROFEN 800 MG TABLET Take 1 tablet by mouth every * NIACIN ORAL Take 1 capsule by mouth once * METAMUCIL ORAL Take 1 tablet by mouth once d* ATENOLOL 25 MG TABLET Take 1 tablet by mouth once d* PANTOPRAZOLE ORAL Take 40 mg by mouth once frederic* LINACLOTIDE 290 MCG CAPSULE Take 1 capsule by mouth once * B-12 DOTS ORAL Take 1 tablet by mouth once d* ASCORBIC ACID (VITAMIN C) 100* Take 100 mg by mouth once francois* CLOZAPINE 100 MG TABLET Take 100 mg by mouth once francois* HYDROCHLOROTHIAZIDE 50 MG TAB* Take 50 mg by mouth once frederic* BENZTROPINE 1 MG TABLET Take 1 mg by mouth twice frederic* MONTELUKAST 10 MG TABLET TAKE 1 TABLET BY MOUTH DAILY * MAGNESIUM OXIDE 500 MG TABLET Take 500 mg by mouth once francois* JANUMET XR 50 MG-1,000 MG TAB* TAKE 1 TABLET BY MOUTH TWICE * LOVASTATIN 20 MG TABLET Take 1 tablet by mouth daily * OMEGA-3 ACID ETHYL ESTERS 1 G* Take 2 capsules by mouth twic* BLOOD-GLUCOSE METER KIT 1 Each as needed. One Touch M* BLOOD SUGAR DIAGNOSTIC STRIPS Test blood sugar(s) 2 times d* LANCETS 28 GAUGE Test once daily. Dx: E11.9 -* LISINOPRIL 2.5 MG TABLET Take 1 tablet by mouth once d* PERPHENAZINE 8 MG TABLET Take 1 tablet by mouth four t* LORAZEPAM 2 MG TABLET Take 1 tablet by mouth twice * ALBUTEROL SULFATE HFA 90 MCG/* Inhale 1-2 Puffs as instructe* METFORMIN 1,000 MG TABLET Take 1,000 mg by mouth daily * ASPIRIN 81 MG TABLET,DELAYED * Take 1 tablet by mouth once d* Problem List As Of Date 12/23/2017 Noted Resolved Diabetes (HCC) [E11.9] INVALID FOR* More... Hypertension [I10] INVALID FOR* More... Hyperlipidemia [E78.5] INVALID FOR* More... Paranoid schizophrenia (HCC) [F20.0] INVALID FOR* More... COPD (chronic obstructive pulmonary disease) (H*INVALID FOR* More... Blood per rectum [K62.5] INVALID FOR* Constipation [K59.00] INVALID FOR* Outlet dysfunction constipation [K59.02] INVALID FOR* Pelvic floor dysfunction [M62.89] INVALID FOR* Ileostomy in place (HCC) [Z93.2] INVALID FOR* Encounter for ostomy care education [Z71.89] INVALID FOR* Postoperative pain [G89.18] INVALID FOR* Nicotine use disorder, F17.2 [F17.200] INVALID FOR* Urinary retention [R33.9] INVALID FOR*11/03/[address] [Z92.89] INVALID FOR*11/03/2017 Encounter Status:Closed by ANNE FOWLER MD on 12/23/17 DISCHARGE SUMMARY Observed: 11/19/2017 Status: F Source: [place] 7:20 [facility] Medical Records Department [address] [place] [address] Discharge Summary 11/16/17 1258 MR#: [id number] Acct: [id number] Name: FAITH GHOSH Rep #: [id number] : 1960 57 From: Katy PORTILLOC PCP: Mackenzie Tejeda MD Status: DIS IN Y Location: [facility] [id number] ADDENDUM by Deneen Schuster MD on 11/19/17 at 0720 Code Visit Date of discharge: 11/17/17 11/19/17 0720 <Electronically signed by Deneen Schuster MD> Date Deneen Schuster MD cc: FAUSTINO Ocampo; Deneen Schuster MD; Mackenzei Tejeda MD * Signed <Katy Ocampo - Last Filed: 11/17/17 15:41> Discharge Date and Diagnosis Date of Admission: 11/13/17 Date of Discharge: 11/16/17 - Primary Discharge Diagnosis Active and Suspected Problems 1. Acute kidney injury secondary to high output from ileostomy and urinary retention 2. Acute pulmonary embolism 3. Hyponatremia-resolved. 4. Leukocytosis/lactic acidosis,secondary to hypovolemia-resolved with IV fluids. - Secondary Discharge Diagnosis Chronic Problems S/P ileostomy (Chronic) HTN (hypertension) (Chronic) Diabetes mellitus (Chronic) HLD (hyperlipidemia) (Chronic) Schizoaffective disorder (Chronic) Nicotine abuse (Chronic) Hospital Course and Treatment Imaging Results: Diagnostic Data Chest CTA 11/13/17 18:09 IMPRESSION: Pulmonary embolus within a right middle lobe subsegmental pulmonary artery. Atherosclerosis. Cholelithiasis. N.B. : The above information has been verbally conveyed by Milagros Dasilva MD to Dr lawson , Referring Physician, on 11/13/2017 18:58:56 (ET). Electronically Signed: Milagros Dasilva MD at 18:52 EDT Tel , Service support , Chest X-Ray 11/13/17 19:22 IMPRESSION: No acute cardiopulmonary process. Electronically Signed: Milagros Dasilva MD at 20:36 EDT Tel , Service support , Renal Ultrasound 11/14/17 16:26 IMPRESSION: Mild left hydronephrosis Electronically Signed: Israel Wilson MD at 12:47 EDT Tel , Service support , Consultations 11/14/17 17:26 Consult: Onc/Wound/biomedical engineering supervisor Routine Comment: Reason for Consult:: ILEOSTOMY Dr. Umanzor- Surgery Dr. Richardson- Nephrology Operations: None Procedures: 2-D Echocardiogram Summary of Care Provided: 1. Acute kidney injury-suspect secondary to high output from ileostomy and urinary retention. Moreno catheter placed with immediate return of 1500 cc urine. Patient started on Flomax. Moreno removed prior to discharge and patient voiding without difficulty. Dr. Umanzor consulted for high output ileostomy. Patient was started on Sandostatin 0.1 mg subcu 3 times daily which will further be discontinued at discharge. If liquid stools continue, this may be restarted at that time. Linzess discontinued which is thought to be part of cause for diarrhea. Continue scheduled Imodium. Recent stool studies 11/04/2017 negative. Renal ultrasound demonstrated mild left hydronephrosis. Creat significantly improved with IV fluids. Creat 3.67 on admission. Creatinine 0.74 at discharge. Patient will follow with Dr. Pisano in 1 week. 2. Acute pulmonary embolism-CTA of chest demonstrated pulmonary embolism within right middle lobe. Continue Eliquis 10 mg twice daily for 7 days. Stop date 11/20/2017. Patient will then transition to Eliquis 5 mg twice daily. Echocardiogram showed an EF of 65%, stage I diastolic dysfunction. 3. Hyponatremia-secondary to hypovolemia. Resolved with IV fluids. 4. Leukocytosis/lactic acidosis-suspect secondary to hypovolemia. Resolved with IV fluids. 5. Hypertension-stable, continue home regimen. 6. Hyperlipidemia-continue statin. 7. Chronic constipation status post recent ileostomy placement at [facility] Main campus. 8. Schizoaffective disorder-continue home medication regimen. 9. Type 2 diabetes mellitus-continue home oral regimen. General: Alert, Oriented x3, Cooperative, No apparent distress HEENT: Atraumatic, PERRLA, EOMI, Normocephalic Neck: Supple, No JVD, Negative Carotid Bruits Lungs: Clear to auscultation, Normal air movement Cardiovascular: Regular rate, Regular Rhythm, Normal S1, Normal S2, No murmurs Abdomen: Bowel Sounds Present, Soft, Non Tender, Non-Distended, - - Ileostomy intact Extremities: No clubbing, No cyanosis, No edema, Capillary Refill Less than 3 Seconds Skin: No rashes, No breakdown Musculoskeletal: No Tenderness to Palpation of Joints or Extremities Neurological: Cranial nerves II-XII grossly intact, Neuro grossly intact Psych/Mental Status: Normal Affect, Appropriate Patient seen exam prior to discharge. Physical assessment as noted above. Patient stable for discharge to SNF with the follow-up recommendations as noted above. This patient was seen by FAUSTINO Ocampo under the supervision of Dr. Schuster. Home Medications: Medications to take at Discharge Atenolol [Tenormin (beta vineet)] 25 mg PO DAILY 02/15/15 Clozapine [Clozaril] 100 mg PO BID 02/15/15 Lisinopril [Zestril] 2.5 mg PO DAILY 02/15/15 Lorazepam [Ativan] 2 mg PO BID 02/15/15 Lovastatin [Mevacor] 20 mg PO QHS 02/15/15 Benztropine [Cogentin] 1 mg PO BID 11/05/17 Sitagliptin Phos/Metformin HCl [Janumet Xr 50-1,000 mg Tablet] 1 tablet PO DAILY #1 tablet 11/07/17 Hydrochlorothiazide 50 mg PO DAILY 11/13/17 Magnesium Oxide [Magnesium] 500 mg PO DAILY 11/13/17 Montelukast [Singulair] 10 mg PO QHS 11/14/17 Perphenazine 8 mg PO 4X/DAY 11/14/17 Apixaban [Eliquis] 10 mg PO BID #60 tab 11/16/17 Loperamide [Imodium] 2 mg PO Q4H #60 cap 11/16/17 Tamsulosin HCl [Flomax] 0.4 mg PO DAILY@0830 #30 cap 11/16/17 Following Prescrptions Were Given to Patient: Loperamide [Imodium] 2 mg PO Q4H #60 cap Tamsulosin HCl [Flomax] 0.4 mg PO DAILY@0830 #30 cap Apixaban [Eliquis] 10 mg PO BID #60 tab Primary Care Physician: Micheal Tejeda MD [Primary Care Provider] - Please follow up with your Primary Care Physician in: 1 Week Please Follow Up With: Kay Umanzor MD When: 1 Week Disposition: Detention facility Minutes spent on discharge:: 35 Patient Condition:: Stable Medical Necessity - Tobacco Use Smoking Status: Former smoker Meaningful Use Info Meaningful Use Diagnoses (Choose all that apply): VTE - VTE Anticoag overlap given w/in hospital stay or rx'd at ct?: Yes Pt receive overlap for 5 days?: Yes <Deneen Schuster - Last Filed: 11/17/17 15:49> Discharge Date and Diagnosis - Secondary Discharge Diagnosis Chronic Problems S/P ileostomy (Chronic) HTN (hypertension) (Chronic) Diabetes mellitus (Chronic) HLD (hyperlipidemia) (Chronic) Schizoaffective disorder (Chronic) Nicotine abuse (Chronic) Hospital Course and Treatment Consultations 11/14/17 17:26 Consult: Onc/Wound/biomedical engineering supervisor Routine Comment: Reason for Consult:: ILEOSTOMY Summary of Care Provided: The patient is a 57 year old M [] Code Visit Inpatient E AND M: 44824 Disch Hosp 11/17/17 1542 <Electronically signed by Katy PORTILLOC> Date Katy PORTILLOC 11/17/17 1549<Electronically signed by Deneen Schuster MD> Cosigner Signature (if applicable): Date Deneen Schuster MD CC: FAUSTINO Ocampo; Deneen Schuster MD; Mackenzie Tejeda MD Signed CBC W/DIFF, AUTOMATED Collected: 11/18/2017 Status: C Source: [place] 3:56 PM [facility] [place] REPOSITORY TYPE CODE TESTS RESULT OUT OF RANGE REFERENCE UNITS LAB L100.1000 4.4-11.0 K/mm3 High WBC 14.7 LAB L100.1200 4.6-6.2 M/mm3 Normal RBC 4.63 LAB L100.1300 13.0-16.5 g/dl Normal HGB 13.6 LAB L100.1400 40-54 % Low HCT 38.5 LAB L100.1500 80-94 fL Normal MCV 83.2 LAB L100.1600 27.0-32.0 pg Normal MCH 29.4 LAB L100.1700 32-36 g/gl Normal MCHC 35.3 LAB L100.1810 11.6-14.6 % Normal RDW CV 13.6 LAB L100.1820 35.1-43.9 fl Normal RDW SD 41.1 LAB L100.1900 150-450 K/mm3 Normal PLT 258 LAB L100.2000 6.2-12.0 fl Normal MPV 10.7 LAB L100.2100 47-70 % High NEUT% 77.1 LAB L100.2200 19-41 % Low LY% 11.6 LAB L100.2300 0-10 % High MONO% 10.4 LAB L100.2400 0-5 % Normal EO% 0.5 LAB L100.2500 0-1 % Normal BASO% 0.2 LAB L100.2550 0.0-0.9 % Normal IM GRAN % 0.200 Result Comment: IG% - Immature Granulocytes (promyelocytes, myelocytes and metamyelocytes) > 1% indicates that a LEFT SHIFT is Present. LAB L100.2620 2.0-7.7 X10 3/uL High Absolute Neut 11.3 LAB L100.2720 0.83-4.51 X10 3/ul Normal Absolute Lymph 1.70 LAB L100.4500 Normal SMEAR COMMENT SEE COMMENT Result Comment: MONOCYTOSIS NOTED LAB L100.5500 ADEQ Normal PLT ADEQUATE EST LAB L100.7000 NORM C AND NORMAL C Normal RED NORM C+C CELL MORPH LAB L100.9900 Normal PATH Reviewed REV Result Comment: Neutrophilic leukocytosis. Clinical correlation necessary. Fabian Bennett M.D. 11/19/17 AMENDED REPORT 11/19/17 0935 PATH REV previously reported as: Lauren ball Performed By: #### L100.0100 #### [facility] [address] [facility] [place], [address] VENOUS DUPLEX LOWER Observed: 11/17/2017 Status: F Source: [place] EXTREMITY 7:05 PM [facility] [place] REPOSITORY [facility] Cardiovascular Services [address] [place] [address] Venous Duplex US - Bk Extrem 11/14/17 1116 MR#: [id number] Acct: [id number] Name: FAITH GHOSH Rep #: [id number] : 1960 57 From: Russell Teague MD Attending Dr: Deneen Schuster MD Status: DIS IN Ordering Dr: Deneen Schuster MD Date: 11/14/17 Location: [facility] Sex: M C Admitted: 11/13/17 Reason For Study: swelling RIGHT LEFT GSV is normal. GSV is normal. CFV is compressible, spontaneous, phasic, CFV is compressible, spontaneous, phasic, competent and demonstrates normal competent, and demonstrates normal augmentation. augmentation. FV is compressible, spontaneous, phasic, FV is compressible, spontaneous, phasic, competent and demonstrates normal competent and demonstrates normal augmentation. augmentation. POP V is compressible, spontaneous, phasic, POP V is compressible, spontaneous, phasic, competent and demonstrates normal competent and demonstrates normal augmentation. augmentation. T/P Trunk is compressible. T/P Trunk is compressible. PTV is compressible. PTV is compressible. RT PerV is compressible. LT PerV is compressible. Procedure Exam performed portable in patient room. The exam was diagnostic. A preliminary report was called and/or faxed to Dr. Schuster. Interpretation Summary Deep veins of the lower extremities are bilaterally patent and compressible segmentally. There is no evidence of deep vein thrombosis on either side. Valvular competence appears intact within the proximal deep venous systems bilaterally. The greater saphenous veins appear bilaterally patent and compressible segmentally. Ordering Physician: Deneen Schuster Performed By: Semaj Gonzalez T 11/17/171903 Date Russell Teague MD CC: Deneen Schuster MD; Mackenzie Tejeda MD Date Dictated: 11/14/17 1116 Date Transcribed: 11/17/171903 Facility Maintenance Technician: Signed BEDSIDE GLUCOSE Collected: 11/17/2017 Status: F Source: [place] 4:24 PM [facility] [place] REPOSITORY TYPE CODE TESTS RESULT OUT OF REFERENCE UNITS RANGE LAB L501.080 70-110 mg/dL High BEDSIDE GLU 170 Result Comment: MANAGEMENT OF PATIENT CARE PER NURSING PROTOCOL Performed By: #### L501.080 #### [facility] Point of Care [address] [place] [address] TRANSFER TO [facility] Observed: 11/17/2017 Status: F Source: [facility] 3:15 PM [facility] [place] REPOSITORY [facility] Medical Records Department [address] [place] [address] Transfer to [facility] Care MR#: [id number] Acct: [id number] Name: FAITH GHOSH Rep #: [id number] : 1960 57 From: Katy PORTILLOC PCP: Mackenzie Tejeda MD Status: ADM IN FAITH GHOSH (Patient) (Health Ins. Claim No.) (Day of Discharge to Facility) Certification of patient admission REQUIRED AT TIME OF ADMISSION. I CERTIFY THAT POST-HOSPITAL ECF SERVICES ARE REQUIRED TO BE GIVEN ON AN IN-PATIENT BASIS BECAUSE OF THE ABOVE NAMED PATIENT'S NEED FOR [facility] CARE ON A CONTINUING BASIS FOR THE CONDITION(S) FOR WHICH HE/SHE WAS RECEIVING IN-PATIENT HOSPITAL SERVICES PRIOR TO HIS/HER TRANSFER TO THE [facility]. 11/17/17 1515 <Electronically signed by Deneen Schuster MD> Date: - Diet 11/13/17 21:27 Diet: Cardiac/Low Cholesterol Food consistency:: Regular Liquid Consistency:: Regular/Thin - Routine Orders/Code Status Routine Lab Work: - - BMP, CBC in 3 days and then Q week. Code Status: Full Code - Suggestions for Active Care Change Position every (hours): 2 Times a day to sit in chair: 3 - Therapies Physical Therapy: Eval and Treat Occupational Therapy: Eval and Treat - Problem/Diagnosis (1) S/P ileostomy Status: Chronic Current Visit: No (2) HTN (hypertension) Status: Chronic Current Visit: No (3) Diabetes mellitus Status: Chronic Current Visit: No (4) HLD (hyperlipidemia) Status: Chronic Current Visit: No (5) Schizoaffective disorder Status: Chronic Current Visit: No (6) Nicotine abuse Status: Chronic Current Visit: No (7) ARF (acute renal failure) Status: Acute Current Visit: Yes (8) Pulmonary embolism Status: Acute Current Visit: Yes - Allergies/Procedures Done in Hospital Allergies/Adverse Reactions: Allergies No Known Allergies Allergy (Verified 11/13/17 18:10) Procedures: 2-D Echocardiogram - Type of Care/Length of Stay Estimated LOS: Convalescent Care Less Than 30 days Type of Care Needed: Skilled Rehab Potential: Good Prognosis: Good - Additional Orders/Day of Discharge H AND P will serve as current which was dated: 11/13/17 Day of Discharge: 11/17/17 - Dietary and Speech Recommendations Dietitian Recommendations/Changes: Suggest diet change to carbohydrate-controlled, cardiac, high fiber. - Follow Up Care Primary Care Physician: Micheal Tejeda MD [Primary Care Provider] - Please follow up with your Primary Care Physician in: 1 Week Please Follow Up With: Kay Umanzor MD When: 1 Week 11/17/17 1510 <Electronically signed by Katy PORTILLOC> Date Katy PORTILLOC 11/17/17 1515<Electronically signed by Deneen Schuster MD> Cosigner Signature: Date Deneen Schuster MD CC: Mackenzie Tejeda MD; Kelly Richardson M.D.; Kay Umanzor MD BEDSIDE GLUCOSE Collected: 11/17/2017 Status: F Source: [place] 11:00 AM [facility] REPOSITORY TYPE CODE TESTS RESULT OUT OF REFERENCE UNITS RANGE LAB L501.080 70-110 mg/dL High BEDSIDE GLU 155 Result Comment: MANAGEMENT OF PATIENT CARE PER NURSING PROTOCOL Performed By: #### L501.080 #### [facility] Point of Care [address] [place] [address] BEDSIDE GLUCOSE Collected: 11/17/2017 Status: F Source: [place] 6:46 AM [facility] REPOSITORY TYPE CODE TESTS RESULT OUT OF REFERENCE UNITS RANGE LAB L501.080 70-110 mg/dL High BEDSIDE GLU 142 Result Comment: MANAGEMENT OF PATIENT CARE PER NURSING PROTOCOL Performed By: #### L501.080 #### [facility] Point of Care [address] [place] [address] COMPREHENSIVE METABOLIC Collected: 11/17/2017 Status: F Source: [place] [facility] 4:58 AM [facility] REPOSITORY TYPE CODE TESTS RESULT OUT OF RANGE REFERENCE UNITS LAB L501.0100 74-106 mg/dL High GLU 131 Result Comment: Fasting Glucose result greater than or equal to 126 mg/dL suggests DIABETES MELLITUS per A.D.A. criteria. Please note revised GLUCOSE reference range effective 2017. LAB L501.1000 7-18 mg/dL Normal BUN 16 LAB L501.1100 0.70-1.30 mg/dL Normal CREAT,SERUM 0.74 Result Comment: The validity of the calculated GFR AND GFRAA in patients over 70 years has not been determined. Clinical correlation is essential. LAB L501.1110 >60 mL/min Normal EST GFR 117 Result Comment: Non- GFR Calc LAB L501.1115 >60 mL/min Normal EST GFR - AA 142 Result Comment: GFR Calc LAB L501.1255 ml/min Normal Estimated CRCL 127.47 LAB L501.1300 10-20 RATIO High BUN/CRE 21.8 LAB L501.1500 6.4-8. g/dL Low 2 T PROT 5.6 LAB L501.1800 3.2-5. g/dL Low 0 ALB 2.8 LAB L501.1950 2.2-4. g/dL 2 GLOB Normal 2.8 LAB L501.2000 0.9-2. RATIO 4 A/G Normal 1.0 LAB L501.2200 8.5-10 mg/dL Low .1 CA 7.7 LAB L501.4100 15-37 U/L AST Normal 19 LAB L501.4305 45-117 U/L ALK P Normal 60 LAB L501.4405 16-61 U/L High ALT 64 LAB L501.4600 0.20-1 mg/dL .00 T BILI Normal 0.90 LAB L501.5300 136-14 mmol/L 5 NA Normal 144 LAB L501.5600 3.5-5. mmol/L 1 K Normal 4.0 LAB L501.5900 98-107 mmol/L High CL 118 LAB L501.6100 21.0-3 mmol/L Low 2.0 CO2 18.0 LAB L501.6200 5-15 GAP Normal 8 Performed By: #### L500.4050 #### [facility] [address] [facility] [address] BEDSIDE GLUCOSE Collected: 11/16/2017 Status: F Source: [place] 9:14 PM [facility] REPOSITORY TYPE CODE TESTS RESULT OUT OF REFERENCE UNITS RANGE LAB L501.080 70-110 mg/dL High BEDSIDE GLU 153 Result Comment: MANAGEMENT OF PATIENT CARE PER NURSING PROTOCOL Performed By: #### L501.080 #### [facility] Point of Care [address] [place] [address] BEDSIDE GLUCOSE Collected: 11/16/2017 Status: F Source: [place] 5:08 PM [facility] REPOSITORY TYPE CODE TESTS RESULT OUT OF REFERENCE UNITS RANGE LAB L501.080 70-110 mg/dL High BEDSIDE GLU 138 Result Comment: MANAGEMENT OF PATIENT CARE PER NURSING PROTOCOL Performed By: #### L501.080 #### [facility] Point of Care [address] [facility] [place] [address] 12 LEAD ELECTROCARDIOGRAM Observed: 11/16/2017 Status: F Source: [place] 1:01 PM [facility] REPOSITORY [facility] Cardiovascular Services [address] [place] [address] 12 Lead EKG 11/13/17 1836 MR#: [id number] Acct: [id number] Name: FAITH GHOSH Rep #: [id number] : 1960 57 From: Mohan Álvarez MD Attending Dr: Deneen Schuster MD Status: ADM IN Ordering Dr: Shaw Lawson MD Date: 11/13/17 Location: [facility] Sex: M C Admitted: 11/13/17 Test Reason : SYNCOPE Blood Pressure : / mmHG Vent. Rate : 083 BPM Atrial Rate : 083 BPM P-R Int : 172 ms QRS Dur : 122 ms QT Int : 432 ms P-R-T Axes : 037 -18 030 degrees QTc Int : 507 ms Normal sinus rhythm Leftward axis Confirmed by NELLY CAMACHO, MOHAN ([id number]), telegraph editor BERENICE MUNOZ ([id number]) on 11/16/2017 1:00:49 PM Referred By: ALEX Confirmed By:MOHAN ÁLVAREZ MD 11/16/17 1300 Date Mohan Álvarez MD CC: Deneen Schuster MD; Mackenzie Tejeda MD; Shaw Lawson MD Signed CONSULTATION Observed: 11/16/2017 Status: F Source: [place] 12:54 PM [facility] REPOSITORY [facility] Medical Records Department [address] [place] [address] Consultation 11/14/17 1753 MR#: [id number] Acct: [id number] Name: FAITH GHOSH Rep #: [id number] : 1960 57 From: Kay Umanzor MD PCP: Mackenzie Tejeda MD Status: ADM IN Y Location: [place] [address]-1 Reason for Consult Date of Consultation: 11/14/17 History of Present Illness: The patient is a 57 year old M with a history of chronic severe constipation, hypertension, hyperlipidemia, diabetes, COPD, anxiety and hallucinations/schizoaffective disorder. I attempted to perform colonoscopy on the patient in 2006. He stated he completed his complete bowel prep at that time. his colonoscopy had a poor prep and he was unable to be completely evaluated. He has since been evaluated clinically and clinic main campus. His workup concluded that he had an overall chronic constipation with decreased colonic transit and outlet-type obstruction. Decision was made to perform a loop ileostomy. The patient underwent attempted colonoscopy which again demonstrated incomplete preparation and laparoscopic loop ileostomy on October 25. Diagnostic laparoscopy demonstrated no obvious abnormalities. A loop ileostomy was created over a stoma bar. Postoperatively, the patient agree of an ileus requiring an nasogastric tube. He had return of bowel function, the nasogastric tube was removed and the patient was tolerating a diet at discharge on November 02, 2017. notably, the patient had relatively balanced input and output during the last 2 days of hospitalization. On November 02, the day of discharge, the patient's hemoglobin was 13.4, BUN was 9 and creatinine was 0.75 the patient present to [facility] emergency department on November 04 with a complaint of shortness of breath. He had a blood pressure of 83/60, when he presented. Chest x-ray no acute abnormality. Ultrasound lower extremities shows no DVT. EKG sinus tachycardia 123. No acute signs of ischemia. CBC shows a white count of 14 H AND H 18 and 15. No bands. Electrolytes sodium 135. CO2 18. BUN 27 creatinine 3.49. Anion gap 16. Upon normal. D-dimer slightly elevated 1.45 lactic acid 2.8. After fluid rehydration, the patient is noted resolution of his shortness of breath. He is currently on the floor in the PCU comfortable watching television. He has noted higher stoma output for the past 2 days. He had a negative V/Q scan and negative lower extremity duplex. He was started on octreotide and immodium while in the hospital. He had started to have more solid and a decrease in his ileostomy output. He was discharged on lomotil and fiber on November 07. He returns today again dehydrated. Past Medical History Past Medical History (Chronic Problems): Chronic Problems S/P ileostomy (Chronic) HTN (hypertension) (Chronic) Diabetes mellitus (Chronic) HLD (hyperlipidemia) (Chronic) Schizoaffective disorder (Chronic) Nicotine abuse (Chronic) Allergies No Known Allergies Allergy (Verified 11/13/17 18:10) Home Medications: Ambulatory Orders Medication Instructions Recorded Atenolol [Tenormin (beta vineet)] 25 mg PO DAILY 02/15/15 Clozapine [Clozaril] 100 mg PO BID 02/15/15 Surgical History: - - ileostomy Psychiatric History: - - schizoaffective Smoking Status: Former smoker - *Family History Maternal History Items: High Cholesterol Paternal History Items: Unknown Patient Problems: Active and Suspected Problems ARF (acute renal failure) (Acute) - Physical Exam Vital Signs Temp Pulse Resp BP Pulse Ox 98 F 76 12 112/62 98 11/14/17 17:17 11/14/17 17:17 11/14/17 17:17 11/14/17 17:17 11/14/17 17:17 Oxygen Delivery Method Room Air Weight: 91 kg Body Mass Index (BMI) 26.4 Orthostatic Vital Signs Start: 11/14/17 12:29 Freq: q24h Status: Active Protocol: Activity Type Activity Date Activity User E-Sign Co-Sign Detail Recorded Client Recorded Date Recorded By Document 11/14/17 12:29 MLB [id number] 11/14/17 12:30 MLB Orthostatic Vitals Standing -Blood Pressure (90/60-120/80) 114/70 -Extremity Use Left Arm -Pulse Rate (60-100) 117 H Sitting -Blood Pressure (90/60-120/80) 105/64 Intake and Output for Last 24 Hours Intake Total 4329 / 4329 Output Total 3950 / 3950 Balance 379 / 379 Laboratory Tests Past 24 Hrs WBC RBC Hgb Hct MCV MCH MCHC RDW RDW Differential Plt Count WBC 12.2 H RBC 4.76 Hgb 13.8 Hct 38.5 L WBC RBC Hgb Hct MCV MCH MCHC RDW RDW Differential Plt Count MPV Immature Gran % (Auto) Neut % (Auto) Lymph % (Auto) POC Glucose POC Glucose 140 H 152 H 143 H Assessment/Plan All Active Problems SIRS (systemic inflammatory response syndrome) (Acute) LUIS ANTONIO (acute kidney injury) (Acute) ARF (acute renal failure) (Acute) High stoma output, dehydration, PE on CT scan, likely dehydration from high stoma output, history of chronic constipation, shortness of breath, PE, history of schizoaffective disorder I would monitor strict ins and outs to assess the total ileostomy output. IV hydration to prevent extending acute renal injury secondatotal ry to dehydration and IV contrast load. Orally - would try to limit total oral liquid intake and try to minimize osmotically active liquids - would try to hold glucerna/ensure for now. Try smaller solid meals, fiber supplements. will add somatostatin and lomotil or immodium. 11/16/17 4562 <Electronically signed by Kay Umanzor MD> Date Kay Umanzor MD Cosigner Signature (if applicable): Date CC: Mackenzie Tejeda MD; Kelly Richardson M.D.; Kay Umanzor MD Signed BEDSIDE GLUCOSE Collected: 11/16/2017 Status: F Source: [place] 11:18 AM [facility] REPOSITORY TYPE CODE TESTS RESULT OUT OF REFERENCE UNITS RANGE LAB L501.080 70-110 mg/dL High BEDSIDE GLU 206 Result Comment: MANAGEMENT OF PATIENT CARE PER NURSING PROTOCOL Performed By: #### L501.080 #### [facility] Point of Care [address] [place], [place] [address] BEDSIDE GLUCOSE Collected: 11/16/2017 Status: F Source: [place] 6:39 AM [facility] REPOSITORY TYPE CODE TESTS RESULT OUT OF REFERENCE UNITS RANGE LAB L501.080 70-110 mg/dL High BEDSIDE GLU 142 Result Comment: MANAGEMENT OF PATIENT CARE PER NURSING PROTOCOL Performed By: #### L501.080 #### [facility] Point of Care [address] [place] [address] CBC W/DIFF, AUTOMATED Collected: 11/16/2017 Status: F Source: [place] 5:45 AM [facility] REPOSITORY TYPE CODE TESTS RESULT OUT OF RANGE REFERENCE UNITS LAB L100.1000 4.4-11.0 K/mm3 High WBC 12.5 LAB L100.1200 4.6-6.2 M/mm3 Low RBC 4.47 LAB L100.1300 13.0-16.5 g/dl Normal HGB 13.2 LAB L100.1400 40-54 % Low HCT 36.5 LAB L100.1500 80-94 fL Normal MCV 81.7 LAB L100.1600 27.0-32.0 pg Normal MCH 29.5 LAB L100.1700 32-36 g/gl High MCHC 36.2 LAB L100.1810 11.6-14.6 % Normal RDW CV 13.2 LAB L100.1820 35.1-43.9 fl Normal RDW SD 38.6 LAB L100.1900 150-450 K/mm3 Normal PLT 283 LAB L100.2000 6.2-12.0 fl Normal MPV 10.4 LAB L100.2100 47-70 % High NEUT% 74.5 LAB L100.2200 19-41 % Low LY% 12.2 LAB L100.2300 0-10 % High MONO% 11.1 LAB L100.2400 0-5 % Normal EO% 1.8 LAB L100.2500 0-1 % Normal BASO% 0.2 LAB L100.2550 0.0-0.9 % Normal IM GRAN % 0.200 Result Comment: IG% - Immature Granulocytes (promyelocytes, myelocytes and metamyelocytes) > 1% indicates that a LEFT SHIFT is Present. LAB L100.2620 2.0-7.7 X10 3/uL High Absolute Neut 9.3 LAB L100.2720 0.83-4.51 X10 3/ul Normal Absolute Lymph 1.52 Performed By: #### L100.0100 #### [facility] [address] [place], [place], [address] COMPREHENSIVE METABOLIC Collected: 11/16/2017 Status: F Source: [facility] 5:45 AM [facility] REPOSITORY TYPE CODE TESTS RESULT OUT OF RANGE REFERENCE UNITS LAB L501.0100 74-106 mg/dL High GLU 131 Result Comment: Fasting Glucose result greater than or equal to 126 mg/dL suggests DIABETES MELLITUS per A.D.A. criteria. Please note revised GLUCOSE reference range effective 2017. LAB L501.1000 7-18 mg/dL High BUN 25 LAB L501.1100 0.70-1.30 mg/dL Normal CREAT,SERUM 0.94 Result Comment: The validity of the calculated GFR AND GFRAA in patients over 70 years has not been determined. Clinical correlation is essential. LAB L501.1110 >60 mL/min Normal EST GFR 88 Result Comment: Non- GFR Calc LAB L501.1115 >60 mL/min Normal EST GFR - AA 107 Result Comment: GFR Calc LAB L501.1255 ml/min Normal Estimated CRCL 100.35 LAB L501.1300 10-20 RATIO High BUN/CRE 26.5 LAB L501.1500 6.4-8. g/dL Low 2 T PROT 6.2 LAB L501.1800 3.2-5. g/dL Low 0 ALB 3.1 LAB L501.1950 2.2-4. g/dL 2 GLOB Normal 3.1 LAB L501.2000 0.9-2. RATIO 4 A/G Normal 1.0 LAB L501.2200 8.5-10 mg/dL Low .1 CA 7.6 LAB L501.4100 15-37 U/L AST Normal 24 LAB L501.4305 45-117 U/L ALK P Normal 69 LAB L501.4405 16-61 U/L High ALT 82 LAB L501.4600 0.20-1 mg/dL High .00 T BILI 1.10 LAB L501.5300 136-14 mmol/L 5 NA Normal 139 LAB L501.5600 3.5-5. mmol/L 1 K Normal 3.7 LAB L501.5900 98-107 mmol/L High CL 113 LAB L501.6100 21.0-3 mmol/L Low 2.0 CO2 19.0 LAB L501.6200 5-15 GAP Normal 7 Performed By: #### L500.4050 #### [facility] [address] [place], [address] BEDSIDE GLUCOSE Collected: 11/15/2017 Status: F Source: [place] 8:50 PM [facility] REPOSITORY TYPE CODE TESTS RESULT OUT OF REFERENCE UNITS RANGE LAB L501.080 70-110 mg/dL High BEDSIDE GLU 124 Result Comment: MANAGEMENT OF PATIENT CARE PER NURSING PROTOCOL Performed By: #### L501.080 #### [facility] Point of Care [address] [place] [address] ECHO, COMPLETE W/ Observed: 11/15/2017 Status: F Source: [place] 4:13 PM [facility] REPOSITORY [facility] Cardiovascular Services [address] [facility] [place] [address] Echo Complete W/ Contrast 11/15/17 1100 MR#: [id number] Acct: [id number] Name: FAITH GHOSH Rep #: [id number] : 1960 57 From: Oleksandr Avina MD Attending Dr: Deneen Schuster MD Status: ADM IN Ordering Dr: Gael Ordonez MD Date: 11/14/17 Location: [facility] Sex: M C Admitted: 11/13/17 Reason For Study: Emboli Procedure This was a 2D Doppler, Color Flow transthoracic echocardiogram. Exam performed portable in patient room. Left Ventricle Normal size and thickness. The estimated ejection fraction is 65 %. Stage 1 diastolic dysfunction. No regional wall motion abnormalities noted. Right Ventricle Normal size and thickness. Normal systolic function. Atria Normal left atrium. Normal right atrium. Normal atrial septum. Mitral Valve The mitral valve is structurally normal. No prolapse or stenosis seen. Tricuspid Valve Normal tricuspid valve. Unable to estimate RV systolic pressure due to inadequate jet, pulmonary artery pressure probably normal. Aortic Valve Trisinus/trileaflet aortic valve. Normal aortic valve. Pulmonic Valve Normal pulmonic valve. Great Vessels Normal aortic root. Normal arch. Normal inferior vena cava. Inferior vena cava collapse with sniff. Pericardium/Pleural No pericardial effusion. Medication Definity0.4ml given slow IV push to enhance endocardial definition. MMode/2D Measurements AND Calculations LVIDd: 4.7 cm IVSd: 1.1 cm Ao root diam: 3.2 cm LVIDs: 2.7 cm LVPWd: 0.94 cm RVDd: 3.1 cm FS: 41.7 % LAV(MOD-bp): 27.6 ml LA A4 area: 10.6 cm2 RA A4 area: 9.6 cm2 LAV(MOD-bp) Indexed: 13.3 ml/m2 LAV(MOD-sp2): 35.5 ml LAV(MOD-sp4): 19.3 ml Doppler Measurements AND Calculations MV E max eryn: 71.7 cm/sec Lat Peak E' Eryn: 10.0 cm/sec Med Peak E' Eryn: 6.0 cm/sec MV A max eryn: 86.1 cm/sec E/E' lat: 7.2 E/E' med: 11.9 MV E/A: 0.83 Ao V2 max: 116.5 cm/sec LV V1 max: 102.3 cm/sec PA V2 max: 119.4 cm/sec Ao max P.4 mmHg LV V1 max P.2 mmHg Ao V2 mean: 89.3 cm/sec Ao mean P.4 mmHg Ao V2 VTI: 22.3 cm Interpretation Summary The estimated ejection fraction is 65 %. Stage 1 diastolic dysfunction. Unable to estimate RV systolic pressure due to inadequate jet, pulmonary artery pressure probably normal. There is no comparison study available. The study was technically difficult. Contrast injection was performed. Ordering Physician: Gael Ordonez Referring Physician: Kyree Lao Performed By: Kay Torres, ARIANA, RVT 11/15/17 8678 Date Oleksandr Avina MD CC: Deneen Schuster MD; Mackenzie Tejeda MD; Gael Ordonez MD Date Dictated: 11/15/17 1100 Date Transcribed: 11/15/171612 Facility Maintenance Technician: Signed BEDSIDE GLUCOSE Collected: 11/15/2017 Status: F Source: [place] 4:06 PM [facility] REPOSITORY TYPE CODE TESTS RESULT OUT OF REFERENCE UNITS RANGE LAB L501.080 70-110 mg/dL High BEDSIDE GLU 179 Result Comment: MANAGEMENT OF PATIENT CARE PER NURSING PROTOCOL Performed By: #### L501.080 #### [facility] Point of Care [address] [place] [address] CONSULTATION Observed: 11/15/2017 Status: F Source: [place] 2:29 PM [facility] REPOSITORY [facility] Medical Records Department [address] [place] [address] Consultation 11/15/17 1422 MR#: [id number] Acct: [id number] Name: FAITH GHOSH Rep #: [id number] : 1960 57 From: Mary Richardson MD PCP: Mackenzie Tejeda MD Status: ADM IN Y Location: [place] [address] Problem List (1) ARF (acute renal failure) Status: Acute Consultation - Renal 11/15/17 PCP/ Referring MD: Requesting physician: [] Primary care physician: Mackenzie Tejeda Reason for Consultation:: LUIS ANTONIO - History of Present Illness History of Present Illness: The patient is a 57 year old M who was admitted to hospital with weakness and dyspnea. has chronic history of constipation requiring multiple procedures, hence ileostomy was done about 3 weeks ago. now presented with increased ileostomy output since then. found to have LUIS ANTONIO, hyponatremia, hypokalemia on admission. for dyspnea, he had a CT chest with contrast. showed PE. now on eliquis overnight kidney numbers improved significantly with fluids alone. also found to have urinary retention, moreno placed with immediate return of 1500cc of urine. couldnt tell me exactly onset of symptoms of urinary retention denies any complaints today - Allergies Allergies: Allergies No Known Allergies Allergy (Verified 11/13/17 18:10) - Current Medications Current Medications: Current Medications Apixaban (Eliquis) 10 mg PO BID MARYURI Stop: 11/20/17 00:00 Last Admin: 11/15/17 08:32 Dose: 10 mg Atorvastatin Calcium (Lipitor) 5 mg PO QHS MARYURI Last Admin: 11/14/17 23:29 Dose: 5 mg Benztropine Mesylate (Cogentin) 1 mg PO BID [facility] Last Admin: 11/15/17 08:32 Dose: 1 mg Clozapine (Clozaril) 100 mg PO BID [facility] Last Admin: 11/15/17 08:31 Dose: 100 mg Sodium Chloride () 1,000 mls @ 150 mls/hr IV .Q6H40M [facility] Last Admin: 11/15/17 14:20 Dose: 150 mls/hr Insulin Human Lispro (Humalog Kwikpen (Bkc)) 0 unit SC ACHS [facility] PRN Reason: Protocol Last Admin: 11/15/17 11:15 Dose: 3 units Linaclotide (Linzess) 290 mcg PO DAILY@729 [facility] Last Admin: 11/15/17 08:30 Dose: Not Given Loperamide HCl (Imodium) 2 mg PO Q4H [facility] Last Admin: 11/15/17 13:49 Dose: 2 mg Montelukast Sodium (Singulair) 10 mg PO DAILY [facility] Last Admin: 11/15/17 08:33 Dose: 10 mg Octreotide Acetate (Sandostatin) 0.1 mg SC TID [facility] Last Admin: 11/15/17 13:49 Dose: 0.1 mg Oxycodone HCl (Oxyir) 5 mg PO Q4H PRN PRN PRN Reason: Moderate Pain (pain scale 4-5) Pantoprazole Sodium (Protonix) 40 mg PO DAILY [facility] Last Admin: 11/15/17 08:33 Dose: 40 mg Perphenazine (Perphenazine) 8 mg PO 4X/DAY [facility] Last Admin: 11/15/17 13:49 Dose: 8 mg Psyllium Hydrophilic Mucilloid (Metamucil) 1 packet PO BID [facility] Last Admin: 11/15/17 08:32 Dose: 1 packet Sodium Chloride () 5 - 30 ml IV UD PRN PRN Reason: SALINE FLUSH Last Admin: 11/14/17 00:20 Dose: 10 ml Tamsulosin HCl (Flomax) 0.4 mg PO DAILY@30 [facility] Last Admin: 11/15/17 08:31 Dose: 0.4 mg - Past Medical History Past Medical History (Chronic Problems): Chronic Problems S/P ileostomy (Chronic) HTN (hypertension) (Chronic) Diabetes mellitus (Chronic) HLD (hyperlipidemia) (Chronic) Schizoaffective disorder (Chronic) Nicotine abuse (Chronic) - Past Surgical History Surgical History: - - ileostomy - Social History Smoking Status: Former smoker - Family History Maternal History Items: High Cholesterol Paternal History Items: Unknown Review of Systems Comment: ROS negative except above Patient Problems: Active and Suspected Problems ARF (acute renal failure) (Acute) - Physical Exam General: Alert - ileostomy with watery output, Oriented x3, Cooperative HEENT: Atraumatic, PERRLA, EOMI, Normocephalic Neck: Supple, No JVD, Negative Carotid Bruits Lungs: Clear to auscultation, Normal air movement Cardiovascular: Regular rate, No murmurs Abdomen: Bowel Sounds Present, Soft, Non Tender Extremities: No edema, Capillary Refill Less than 3 Seconds Skin: No rashes, No breakdown Musculoskeletal: No Tenderness to Palpation of Joints or Extremities Neurological: Cranial nerves II-XII grossly intact Psych/Mental Status: Normal Affect, Appropriate Vital Signs Temp Pulse Resp BP Pulse Ox 98.3 F 85 14 110/73 98 11/15/17 08:37 11/15/17 11:00 11/15/17 08:37 11/15/17 08:37 11/15/17 08:37 Oxygen Delivery Method Room Air Weight: 91 kg Body Mass Index (BMI) 26.4 Orthostatic Vital Signs Start: 11/14/17 12:29 Freq: q24h Status: Active Protocol: Activity Type Activity Date Activity User E-Sign Co-Sign Detail Recorded Client Recorded Date Recorded By Document 11/14/17 12:29 MLB [id number] 11/14/17 12:30 MLB Intake and Output for Last 24 Hours Intake Total 4329 / 4329 3383 / 3383 Output Total 3950 / 3950 5800 / 5800 Balance 379 / 379 -2417 / -2417 Laboratory Tests Past 24 Hrs WBC 7.7 RBC 4.71 Hgb 13.8 Hct 37.9 L WBC RBC Hgb Hct MCV MCH MCHC RDW RDW Differential Plt Count MPV Immature Gran % (Auto) Neut % (Auto) Lymph % (Auto) POC Glucose POC Glucose 231 H 163 H 145 H POC Glucose 140 H Assessment/Plan All Active Problems SIRS (systemic inflammatory response syndrome) (Acute) LUIS ANTONIO (acute kidney injury) (Acute) ARF (acute renal failure) (Acute) LUIS ANTONIO. presumably normal baseline. with moreno placement and fluid repletion, creatinine improved significantly. UA looks fairly benign. Renal USG shows mild hydronephrosis but this could be result of preexisting hydronephrosis. since creatinine is significantly better, hold off on further work up Hyponatremia. hypovolemic. better Hypokalemia. repleted high ileostomy output. started on sandostatin by Dr Umanzor 11/15/17 1429 <Electronically signed by Mary Richardson MD> Date Mary Richardson MD Cosigner Signature (if applicable): Date CC: Mackenzie Tejeda MD; eKlly Richardson M.D.; Kay Umanzor MD Signed BEDSIDE GLUCOSE Collected: 11/15/2017 Status: F Source: [place] 11:44 AM [facility] REPOSITORY TYPE CODE TESTS RESULT OUT OF REFERENCE UNITS RANGE LAB L501.080 70-110 mg/dL High BEDSIDE GLU 231 Result Comment: Dr Knott Followed Insulin Given MANAGEMENT OF PATIENT CARE PER NURSING PROTOCOL Performed By: #### L501.080 #### [facility] Point of Care [address] [place], [place] [id number] BEDSIDE GLUCOSE Collected: 11/15/2017 Status: F Source: [place] 7:00 AM [facility] REPOSITORY TYPE CODE TESTS RESULT OUT OF REFERENCE UNITS RANGE LAB L501.080 70-110 mg/dL High BEDSIDE GLU 163 Result Comment: MANAGEMENT OF PATIENT CARE PER NURSING PROTOCOL Performed By: #### L501.080 #### [facility] Point of Care [address] [place] [address] CBC W/DIFF, AUTOMATED Collected: 11/15/2017 Status: F Source: [place] 6:00 AM [facility] REPOSITORY TYPE CODE TESTS RESULT OUT OF RANGE REFERENCE UNITS LAB L100.1000 4.4-11.0 K/mm3 Normal WBC 7.7 LAB L100.1200 4.6-6.2 M/mm3 Normal RBC 4.71 LAB L100.1300 13.0-16.5 g/dl Normal HGB 13.8 LAB L100.1400 40-54 % Low HCT 37.9 LAB L100.1500 80-94 fL Normal MCV 80.5 LAB L100.1600 27.0-32.0 pg Normal MCH 29.3 LAB L100.1700 32-36 g/gl High MCHC 36.4 LAB L100.1810 11.6-14.6 % Normal RDW CV 13.0 LAB L100.1820 35.1-43.9 fl Normal RDW SD 37.4 LAB L100.1900 150-450 K/mm3 Normal PLT 291 LAB L100.2000 6.2-12.0 fl Normal MPV 10.8 LAB L100.2100 47-70 % Normal NEUT% 65.4 LAB L100.2200 19-41 % Normal LY% 19.3 LAB L100.2300 0-10 % High MONO% 13.2 LAB L100.2400 0-5 % Normal EO% 1.3 LAB L100.2500 0-1 % Normal BASO% 0.3 LAB L100.2550 0.0-0.9 % Normal IM GRAN % 0.500 Result Comment: IG% - Immature Granulocytes (promyelocytes, myelocytes and metamyelocytes) > 1% indicates that a LEFT SHIFT is Present. LAB L100.2620 2.0-7.7 X10 3/uL Normal Absolute Neut 5.0 LAB L100.2720 0.83-4.51 X10 3/ul Normal Absolute Lymph 1.48 Performed By: #### L100.0100 #### [facility] [address] [place], [address] COMPREHENSIVE METABOLIC Collected: 11/15/2017 Status: F Source: [facility] 6:00 AM [facility] REPOSITORY TYPE CODE TESTS RESULT OUT OF RANGE REFERENCE UNITS LAB L501.0100 74-106 mg/dL High GLU 175 Result Comment: Fasting Glucose result greater than or equal to 126 mg/dL suggests DIABETES MELLITUS per A.D.A. criteria. Please note revised GLUCOSE reference range effective 2017. LAB L501.1000 7-18 mg/dL High BUN 49 LAB L501.1100 0.70-1.30 mg/dL High CREAT,SERUM 1.46 Result Comment: The validity of the calculated GFR AND GFRAA in patients over 70 years has not been determined. Clinical correlation is essential. LAB L501.1110 >60 mL/min Low EST GFR 53 Result Comment: Non- GFR Calc LAB L501.1115 >60 mL/min Normal EST GFR - AA 64 Result Comment: GFR Calc LAB L501.1255 ml/min Normal Estimated CRCL 64.61 LAB L501.1300 10-20 RATIO High BUN/CRE 33.6 LAB L501.1500 6.4-8. g/dL Normal 2 T PROT 6.4 LAB L501.1800 3.2-5. g/dL Normal 0 ALB 3.3 LAB L501.1950 2.2-4. g/dL Normal 2 GLOB 3.1 LAB L501.2000 0.9-2. RATIO Normal 4 A/G 1.1 LAB L501.2200 8.5-10 mg/dL Low .1 CA 8.0 LAB L501.4100 15-37 U/L Normal AST 33 LAB L501.4305 45-117 U/L Normal ALK P 75 LAB L501.4405 16-61 U/L High ALT 103 LAB L501.4600 0.20-1 mg/dL Normal .00 T BILI 0.90 LAB L501.5300 136-14 mmol/L Normal 5 NA 137 LAB L501.5600 3.5-5. mmol/L Normal 1 K 3.9 LAB L501.5900 98-107 mmol/L Normal CL 107 LAB L501.6100 21.0-3 mmol/L Low 2.0 CO2 18.0 LAB L501.6200 5-15 Normal GAP 12 Performed By: #### L500.4050 #### [facility] [address] [place], [place], [id number] BEDSIDE GLUCOSE Collected: 11/14/2017 Status: F Source: [place] 11:23 PM [facility] REPOSITORY TYPE CODE TESTS RESULT OUT OF REFERENCE UNITS RANGE LAB L501.080 70-110 mg/dL High BEDSIDE GLU 145 Result Comment: MANAGEMENT OF PATIENT CARE PER NURSING PROTOCOL Performed By: #### L501.080 #### [facility] Point of Care [address] [place] [address] URINE SODIUM Collected: 11/14/2017 Status: F Source: [place] 5:30 PM [facility] REPOSITORY TYPE CODE TESTS RESULT OUT OF RANGE REFERENCE UNITS LAB L501.5500 Not Establ. mmol/L Normal UR NA 47 Performed By: #### L501.5500 #### [facility] [address] [place], [address] CREATININE, URINE Collected: 11/14/2017 Status: F Source: [place] 5:30 PM [facility] REPOSITORY TYPE CODE TESTS RESULT OUT OF RANGE REFERENCE UNITS LAB L502.0300 NO RANGE EST. mg/dL Normal URINE 37.30 CREAT Performed By: #### L502.0300 #### [facility] [address] [place], [address] BEDSIDE GLUCOSE Collected: 11/14/2017 Status: F Source: [place] 4:36 PM [facility] REPOSITORY TYPE CODE TESTS RESULT OUT OF REFERENCE UNITS RANGE LAB L501.080 70-110 mg/dL High BEDSIDE GLU 140 Result Comment: Orders Followed MANAGEMENT OF PATIENT CARE PER NURSING PROTOCOL Performed By: #### L501.080 #### [facility] Point of Care [address] [place] [address] KIDNEY AND BLADDER Observed: 11/14/2017 Status: F Source: [place] 4:27 PM [facility] REPOSITORY [facility] Imaging Services [address] [place] [address] Kidney and Bladder MR#: [id number] Acct: [id number] Name: FAITH GHOSH Rep #: [id number] : 1960 M 57 From: Israel Wilson MD PCP: Mackenzie Tejeda MD Status: ADM IN Study: Kidney and Bladder Date of Exam: 11/14/17 Exam# [id number] Ordering Dr: Deneen Schuster MD STUDY: RENAL ULTRASOUND - COMPLETE REASON FOR EXAM: Male, 57 years old. Acute renal failure TECHNIQUE: Ultrasound evaluation of the kidneys was performed with real-time and static grace-scale imaging. COMPARISON: None. FINDINGS: RIGHT KIDNEY: Normal location of the right kidney, which is normal in size. The right kidney measures 11.4 x 4.8 x 6 cm. There is a normal cortex of the right kidney. The renal cortex measures 2 cm. There is no right renal mass or cyst. There are no right renal calculi. There is mild hydronephrosis of the right kidney. DISTAL RIGHT URETER: There is non-visualization of the distal right ureter. There is no demonstrated right ureterovesical junction calculus. There is a visualized right ureteral jet. LEFT KIDNEY: Normal location of the left kidney, which is normal in size. The left kidney measures 11.8 x 5.8 x 5.6 cm. There is a normal cortex of the left kidney. The renal cortex measures 1.9 cm. There is no left renal mass or cyst. There are no left renal calculi. There is no left hydronephrosis. DISTAL LEFT URETER: There is non-visualization of the distal left ureter. There is no demonstrated left ureterovesical junction calculus. There is a visualized left ureteral jet. AORTA: There is no demonstrated aneurysm.. I.V.C.: The IVC is patent. BLADDER: The patient has a Moreno catheter in place. US/Kidney and Bladder IMPRESSION: Mild left hydronephrosis Electronically Signed: Israel Wilson MD at 12:47 EDT Tel , Service support , CC: Deneen Schuster MD; Mackenzie Tejeda MD Facility Maintenance Technician: Signed BEDSIDE GLUCOSE Collected: 11/14/2017 Status: F Source: [place] 11:11 AM [facility] REPOSITORY TYPE CODE TESTS RESULT OUT OF REFERENCE UNITS RANGE LAB L501.080 70-110 mg/dL High BEDSIDE GLU 152 Result Comment: MANAGEMENT OF PATIENT CARE PER NURSING PROTOCOL Performed By: #### L501.080 #### [facility] Point of Care [address] [place] [address] URINALYSIS, COMPLETE Collected: 11/14/2017 Status: F Source: [place] 9:13 AM [facility] REPOSITORY Order Comment: How was Urine Obtained? TELEPHONE SERVICE ADVISER TO SPECIFY TYPE CODE TESTS RESULT OUT OF RANGE REFERENCE UNITS LAB L400.3000 Yellow COLOR Normal Yellow LAB L400.3050 Clear Normal CLARITY Sl. Cloudy LAB L400.3200 Normal mg/dl Normal GLUCOSE, UR Normal LAB L400.3300 Negative mg/dL Normal BILIRUBIN URINE Negative LAB L400.3400 Negative mg/dl Normal KETONE UR Negative LAB L400.3465 1.002-1.030 Normal SP.GR. DIPSTX 1.015 LAB L400.3550 5.0 - 8.0 pH UR Normal 5.0 LAB L400.3600 Negative mg/dl High PROT 30 DIPSTX LAB L400.3700 Normal mg/dl Normal UROBILI Normal LAB L400.3750 Negative Normal NITRITE UR Negative LAB L400.3780 Negative /ul High 10 OCCULT BLOOD-UR LAB L400.3800 Negative /ul LEUK Normal ESTERASE Negative LAB L400.4050 0-5 /hpf WBC 0 Normal SEEN LAB L400.4100 0-5 /hpf Normal RBC-UA 0-5 SEEN LAB L400.4150 0-5 /hpf SQUAM Normal EPI 0-5 SEEN LAB L400.4300 None Seen /hpf 1+ Normal BACTERIA LAB L400.4350 <or=2+ /hpf 0 Normal MUCUS, URINE SEEN Performed By: #### L400.0001 #### [facility] [address] [place] [place], [address] BEDSIDE GLUCOSE Collected: 11/14/2017 Status: F Source: [place] 6:49 AM [facility] REPOSITORY TYPE CODE TESTS RESULT OUT OF REFERENCE UNITS RANGE LAB L501.080 70-110 mg/dL High BEDSIDE GLU 143 Result Comment: MANAGEMENT OF PATIENT CARE PER NURSING PROTOCOL Performed By: #### L501.080 #### [facility] Point of Care [address] [place] [place] [address] PROTHROMBIN TIME W/INR Collected: 11/14/2017 Status: F Source: [place] 5:26 AM [facility] REPOSITORY TYPE CODE TESTS RESULT OUT OF RANGE REFERENCE UNITS LAB L300.4150 11.7-14.9 SECONDS Normal PROTIME 14.8 LAB L300.4200 Normal INR 1.2 Performed By: #### L300.3900, L300.4310 #### [facility] [address] [place], [address] PARTIAL THROMBOPLAST Collected: 11/14/2017 Status: F Source: [place] TIME 5:26 AM [facility] REPOSITORY TYPE CODE TESTS RESULT OUT OF RANGE REFERENCE UNITS LAB L300.4310 24.1-36.2 Seconds Normal PTT 27.3 Performed By: #### L300.3900, L300.4310 #### [facility] [address] [place], [address] BASIC METABOLIC Collected: 11/14/2017 Status: F Source: [place] PROFILE (BMP) 5:26 AM [facility] REPOSITORY TYPE CODE TESTS RESULT OUT OF RANGE REFERENCE UNITS LAB L501.0100 74-106 mg/dL High GLU 125 Result Comment: Fasting Glucose result from 100 to 125 mg/dL suggests IMPAIRED HOMEOSTASIS per A.D.A. criteria. Please note revised GLUCOSE reference range effective 2017. LAB L501.1000 7-18 mg/dL High BUN 82 LAB L501.1100 0.70-1.30 mg/dL High CREAT,SERUM 3.40 Result Comment: The validity of the calculated GFR AND GFRAA in patients over 70 years has not been determined. Clinical correlation is essential. LAB L501.1110 >60 mL/min Low EST GFR 20 Result Comment: Non- GFR Calc LAB L501.1115 >60 mL/min Low EST GFR - AA 24 Result Comment: GFR Calc LAB L501.1255 ml/min Normal Estimated CRCL 27.74 LAB L501.1300 10-20 RATIO High BUN/CRE 24.1 LAB L501.2200 8.5-10 mg/dL Low .1 CA 8.1 LAB L501.5300 136-14 mmol/L Low 5 NA 123 LAB L501.5600 3.5-5. mmol/L Low 1 K 3.1 Result Comment: Slight Hemolysis, Result may be falsely increased. LAB L501.5900 98-107 mmol/L Low CL 91 LAB L501.6100 21.0-32.0 mmol/L Low CO2 16.0 LAB L501.6200 5-15 High GAP 16 Performed By: #### L500.2500 #### [facility] [address] [place], [place], [address] CBC W/DIFF, AUTOMATED Collected: 11/14/2017 Status: F Source: [place] 5:26 AM [facility] REPOSITORY TYPE CODE TESTS RESULT OUT OF RANGE REFERENCE UNITS LAB L100.1000 4.4-11.0 K/mm3 High WBC 12.2 LAB L100.1200 4.6-6.2 M/mm3 Normal RBC 4.76 LAB L100.1300 13.0-16.5 g/dl Normal HGB 13.8 LAB L100.1400 40-54 % Low HCT 38.5 LAB L100.1500 80-94 fL Normal MCV 80.9 LAB L100.1600 27.0-32.0 pg Normal MCH 29.0 LAB L100.1700 32-36 g/gl Normal MCHC 35.8 LAB L100.1810 11.6-14.6 % Normal RDW CV 12.9 LAB L100.1820 35.1-43.9 fl Normal RDW SD 37.6 LAB L100.1900 150-450 K/mm3 Normal PLT 334 LAB L100.2000 6.2-12.0 fl Normal MPV 10.5 LAB L100.2100 47-70 % High NEUT% 76.0 LAB L100.2200 19-41 % Low LY% 12.5 LAB L100.2300 0-10 % High MONO% 10.2 LAB L100.2400 0-5 % Normal EO% 0.9 LAB L100.2500 0-1 % Normal BASO% 0.0 LAB L100.2550 0.0-0.9 % Normal IM GRAN % 0.400 Result Comment: IG% - Immature Granulocytes (promyelocytes, myelocytes and metamyelocytes) > 1% indicates that a LEFT SHIFT is Present. LAB L100.2620 2.0-7.7 X10 3/uL High Absolute Neut 9.3 LAB L100.2720 0.83-4.51 X10 3/ul Normal Absolute Lymph 1.53 Performed By: #### L100.0100 #### [facility] [address] [place], [address] MAGNESIUM Collected: 11/14/2017 Status: F Source: [place] 5:26 AM [facility] REPOSITORY Order Comment: Comments: as add on test TYPE CODE TESTS RESULT OUT OF RANGE REFERENCE UNITS LAB L501.5200 1.6-2.6 mg/dL Normal MG 2.3 Result Comment: Slight Hemolysis, Result may be falsely increased. Performed By: #### L501.5200 #### [facility] [address] [place], [address] HISTORY AND PHYSICAL Observed: 11/14/2017 Status: F Source: [place] EXAM 3:17 AM [facility] REPOSITORY [facility] Medical Records Department [address] [facility] [place] [address] History and Physical 11/13/17 2136 MR#: [id number] Acct: [id number] Name: FAITH GHOSH Rep #: [id number] : 1960 57 From: Gael Ordonez MD PCP: Mackenzie Tejeda MD Status: ADM IN Location: [place] [address] Problem List (1) Diabetes mellitus Status: Chronic Qualifiers: Diabetes mellitus type: type 2 (2) HLD (hyperlipidemia) Status: Chronic (3) HTN (hypertension) Status: Chronic (4) Nicotine abuse Status: Chronic (5) S/P ileostomy Status: Chronic (6) Schizoaffective disorder Status: Chronic (7) ARF (acute renal failure) Status: Acute History of Present Illness Date of Admission: 11/13/17 Chief Complaint: ARF and PE The patient is a 57 year old male w/ h/o ileostomy, HTN, DMII, lipidemia, schizoaffective disease and constipation admitted for PE and ARF. He has been SOB and fatigue since ileostomy for obstruction secondary to chronic constipation. Ileostomy was done 3 weeks ago. His SOB has been progressively getting worse. He came into the ED a week ago and was evaluated. Workup was negative with the exception for dehydration secondary to viral enteritis. He has increase outpt in his ostomy bag. He has been unable to keep up with hydration. Past Medical History Past Medical History (Chronic Problems): Chronic Problems S/P ileostomy (Chronic) HTN (hypertension) (Chronic) Diabetes mellitus (Chronic) HLD (hyperlipidemia) (Chronic) Schizoaffective disorder (Chronic) Nicotine abuse (Chronic) Allergies No Known Allergies Allergy (Verified 11/13/17 18:10) Home Medications: Ambulatory Orders Medication Instructions Recorded Atenolol [Tenormin (beta vineet)] 25 mg PO BID 02/15/15 Surgical History: - - ileostomy Psychiatric History: - - schizoaffective Smoking Status: Former smoker - *Family History Maternal History Items: High Cholesterol Paternal History Items: Unknown Review of Systems Constitutional: Reports: Malaise, Fatigue. Denies: Chills, Fever, Weight Change HEENT: Denies: Head Aches, Sinus Congestion, Sinus Drainage Cardiovascular: Denies: Chest Pain, Palpitations Respiratory: Reports: Shortness of Breath. Denies: Cough, Shortness of breath at rest, Sputum production Gastrointestinal: Denies: Abdominal Pain, Nausea, Vomiting Genitourinary: Denies: Dysuria Musculoskeletal: Denies: Joint Pain, Joint Tenderness Skin: Denies: Rash, Wounds Neurological: Denies: Numbness, Tingling, Focal weakness Psychiatric: Denies: Anxiety, Depression, Homicidal Ideations, Suicidal Ideations Hematologic/ Lymphatic: Denies: Easy Bruising, Easy Bleeding VTE Information - Inpt Only VTE Present on Admission: No VTE Mechan Device Prophylaxis: SCD's VTE Pharm Prophylaxis ordered?: Yes Patient Problems: Active and Suspected Problems ARF (acute renal failure) (Acute) - Physical Exam General: Alert, Oriented x3, Cooperative HEENT: Atraumatic, PERRLA, EOMI, Normocephalic Neck: Supple, No JVD, Negative Carotid Bruits Lungs: Clear to auscultation, Normal air movement Cardiovascular: Regular rate, No murmurs Abdomen: Bowel Sounds Present, Soft, Non Tender Extremities: No edema, Capillary Refill Less than 3 Seconds Skin: No rashes, No breakdown Musculoskeletal: No Tenderness to Palpation of Joints or Extremities Neurological: Cranial nerves II-XII grossly intact Psych/Mental Status: Normal Affect, Appropriate Vital Signs Temp Pulse Resp BP Pulse Ox 97.1 F L 81 17 91/60 96 11/13/17 21:03 11/13/17 21:03 11/13/17 21:03 11/13/17 21:03 11/13/17 21:03 Oxygen Delivery Method Room Air Weight: 90.6 kg Body Mass Index (BMI) 26.3 Finger Stick Blood Glucose 206 Laboratory Tests Past 24 Hrs WBC 20.7 H WBC RBC Hgb Hct MCV MCH MCHC RDW RDW Differential Plt Count MPV Immature Gran % (Auto) Neut % (Auto) Lymph % (Auto) Assessment/Plan All Active Problems SIRS (systemic inflammatory response syndrome) (Acute) LUIS ANTONIO (acute kidney injury) (Acute) ARF (acute renal failure) (Acute) 57 year old male w/ h/o ileostomy, HTN, DMII, lipidemia, schizoaffective disease and constipation admitted for PE and ARF. 1) ARF: Most likely secondary to azotemia secondary to high outpt ileostomy bag. Pt was given contrast for the CTA on 11/13/17. Will hydrate. Serial labs. Supportive care, ie renal dose meds, avoid nephrotoxic drugs. 2) PE: CTA disclosed Pulmonary embolus within a right middle lobe subsegmental pulmonary artery. Will get eliquis 10mg PO BID x 7 days and then will transition to 5mg PO BID. Will get ECHO. Will also get US of lower extremities. Previous US last week was negative. Hypercoag workup negative. 3) Hypovolemia hyponatremia: Hydration. If no improvement, will consider further workup. Monitor. 4) Lactic acidosis: Most likely secondary to poor perfusion secondary to hypovolemia. Hydration. Repeat level. 5) Prophylaxis: SCD / Eliquis 11/14/17 0317 <Electronically signed by Gael Ordonez MD> Date Gael Ordonez MD Cosigner Signature: Date (if applicable) CC: Mackenzie Tejeda MD; Gael Ordonez MD Signed LACTIC ACID Collected: 11/13/2017 Status: F Source: [place] 10:45 PM [facility] REPOSITORY TYPE CODE TESTS RESULT OUT OF REFERENCE UNITS RANGE LAB L503.6005 0.4-2.0 mmol/L High LACTIC ACID 2.2 Result Comment: Critical Result(s) Called at: 23:30:25 11/13/2017 by: TACOS CONNOR to Savita Jimenez Performed By: #### L503.6005 #### [facility] [address] [place], [address] EMERGENCY DEPARTMENT Observed: 11/13/2017 Status: F Source: [place] SUMMARY 9:03 PM [facility] REPOSITORY [facility] Medical Records Department [address] [place] [address] Emergency Department Summary 11/13/17 1811 MR#: [id number] Acct: [id number] Name: FAITH GHOSH Rep #: [id number] : 1960 57 From: Shaw Lawson MD PCP: Mackenzie Tejeda MD Status: REG ER - ER Visit Summary Date of Service: 11/13/17 Chief Complaint: Shortness of breath and syncope History of Present Illness: The patient is a 57 M who is had 2 weeks of shortness of breath. The patient had a ileostomy done 3 weeks ago at [facility]. It was done for chronic constipation. He states for the past 2 weeks he has felt short of breath. It is worse when he exerts himself. He had a syncopal episode today. He denies any chest pain. He has had no bleeding from around or through the ostomy. He denies any fevers. Family states he has been eating and drinking less ever since his surgery. He saw his primary care physician on Wednesday who modified his medications. Looking at the patient records, it appears as if he was admitted on November 04 for similar symptoms. However, at that time he had increased ileostomy output. He was found to have viral gastroenteritis at that time as well as dehydration. He had a VQ scan of the chest due to elevated creatinine. It showed no PE. Duplex ultrasound of his legs were negative. Physical Examination: Vital signs reviewed and are significant for hypotension of 80s over 50s. HEENT exam unremarkable. Heart is regular rate and rhythm without murmurs. Lungs are clear to auscultation. Abdomen is soft and nontender. There is a colostomy in the right lower quadrant. Nontender. No bleeding. Extremities reveal no edema. Skin exam does show a rash around the colostomy site. Neurologic exam normal. Test Results: Laboratory studies show sodium 119, potassium 3.4, creatinine 3.67. Troponin normal. Lactate 4.2. White blood cell count 20.7. CTA of the chest reveals a subsegmental PE. Chest x-ray reveals no acute findings Emergency Department Course and Treatment: The patient does have evidence of dehydration. I will hydrate him with normal saline. He does have a leukocytosis but I am not finding any signs of infection. He was admitted for viral gastroenteritis last week. His lactate is 4.2 but this could be from dehydration as well. CTA as read by the radiologist does reveal a subsegmental PE. Due to his shortness of breath I will anticoagulate him with Elliquis. His blood sodium is also low which will help the IV fluids. The patient will require admission to the hospital Treatment Plan: [] Disposition: Admit Impression: Dehydration, lactic acidosis, hyponatremia, pulmonary embolism This note was generated with Smove dictation software. It may contain incorrect words, spelling, and punctuation that were not noted in review of the chart prior to signing ED Disposition - Plan for ED Patient: Chief Complaint: Syncope Referrals: Micheal Tejeda MD [Primary Care Provider] - What to do if you have Problems For any increased pain, shortness of breath, bleeding, nausea or vomiting, chest pain, or any unexpected problems, contact your Primary Care Provider. Call [facility] ([phone]) or report to the closest Emergency Room. Call 911 if necessary. 11/13/17 0189 <Electronically signed by Shaw Lawson MD> Date Shaw Lawson MD Cosigner Signature (If Indicated): Date CC: Mackenzie Tejeda MD CHEST 1 VIEW Observed: 11/13/2017 Status: F Source: [place] (PORT[place]) 7:22 PM [facility] REPOSITORY [facility] Imaging Services [address] [place] [address] Chest 1 View (Portable) MR#: [id number] Acct: [id number] Name: FAITH GHOSH Rep #: [id number] : 1960 M 57 From: Milagros Dasilva MD PCP: Mackenzie Tejeda MD Status: REG ER Study: Chest 1 View (Portable) Date of Exam: 11/13/17 Exam# [id number] Ordering Dr: Shaw Lawson MD STUDY: X-RAY CHEST REASON FOR EXAM: Male, 57 years old. Short of breath. TECHNIQUE: Portable frontal. COMPARISON: November 04, 2017 FINDINGS: The lungs are clear and expanded. There is no demonstrated pleural abnormality. Normal size heart. Normal mediastinum and memo. Normal visualized pulmonary arteries. Normal visualized aortic arch and descending thoracic aorta. Normal visualized thoracic spine. Normal visualized ribs, clavicles, and shoulders. There is no demonstrated abnormality of the visualized soft tissue structures of the upper abdomen. RAD/Chest 1 View (Portable) IMPRESSION: No acute cardiopulmonary process. Electronically Signed: Milagros Dasilva MD at 20:36 EDT Tel , Service support , CC: Mackenzie Tejeda MD; Shaw Lawson MD Facility Maintenance Technician: Signed CBC W/DIFF, AUTOMATED Collected: 11/13/2017 Status: F Source: [place] 6:15 PM [facility] REPOSITORY TYPE CODE TESTS RESULT OUT OF RANGE REFERENCE UNITS LAB L100.1000 4.4-11.0 K/mm3 High WBC 20.7 LAB L100.1200 4.6-6.2 M/mm3 Normal RBC 5.52 LAB L100.1300 13.0-16.5 g/dl Normal HGB 16.0 LAB L100.1400 40-54 % Normal HCT 44.6 LAB L100.1500 80-94 fL Normal MCV 80.8 LAB L100.1600 27.0-32.0 pg Normal MCH 28.7 LAB L100.1700 32-36 g/gl Normal MCHC 35.6 LAB L100.1810 11.6-14.6 % Normal RDW CV 13.0 LAB L100.1820 35.1-43.9 fl Normal RDW SD 38.3 LAB L100.1900 150-450 K/mm3 Normal PLT 415 LAB L100.2000 6.2-12.0 fl Normal MPV 10.7 LAB L100.2100 47-70 % High NEUT% 90.4 LAB L100.2200 19-41 % Low LY% 4.8 LAB L100.2300 0-10 % Normal MONO% 4.3 LAB L100.2400 0-5 % Normal EO% 0.1 LAB L100.2500 0-1 % Normal BASO% 0.0 LAB L100.2550 0.0-0.9 % Normal IM GRAN % 0.400 Result Comment: IG% - Immature Granulocytes (promyelocytes, myelocytes and metamyelocytes) > 1% indicates that a LEFT SHIFT is Present. LAB L100.2620 2.0-7.7 X10 3/uL High Absolute Neut 18.7 LAB L100.2720 0.83-4.51 X10 3/ul Normal Absolute Lymph 1.00 Performed By: #### L100.0100 #### [facility] [address] [place], [address] BASIC METABOLIC Collected: 11/13/2017 Status: F Source: [place] [facility] ([facility]) 6:15 PM [facility] REPOSITORY Order Comment: CRITICAL VALUE VERIFIED. CALLED TO 11/13/171941 Aundrea Fagan. RESULTS READ BACK BY . TYPE CODE TESTS RESULT OUT OF RANGE REFERENCE UNITS LAB L501.0100 74-106 mg/dL High GLU 216 Result Comment: Glucose result greater than or equal to 200 mg/dL suggests DIABETES MELLITUS per A.D.A. criteria. Please note revised GLUCOSE reference range effective 2017. LAB L501.1000 7-18 mg/dL High BUN 78 LAB L501.1100 0.70-1.30 mg/dL High CREAT,SERUM 3.67 Result Comment: The validity of the calculated GFR AND GFRAA in patients over 70 years has not been determined. Clinical correlation is essential. LAB L501.1110 >60 mL/min Low EST GFR 18 Result Comment: Non- GFR Calc LAB L501.1115 >60 mL/min Low EST GFR - AA 22 Result Comment: GFR Calc LAB L501.1255 ml/min Normal Estimated CRCL 25.70 LAB L501.1300 10-20 RATIO High BUN/CRE 21.3 LAB L501.2200 8.5-10 mg/dL Normal .1 CA 9.2 LAB L501.5300 136-14 mmol/L Low 5 NA alert 119 LAB L501.5600 3.5-5. mmol/L Low 1 K 3.4 LAB L501.5900 98-107 mmol/L Low CL 85 LAB L501.6100 21.0-3 mmol/L Low 2.0 CO2 19.0 LAB L501.6200 5-15 Normal GAP 15 Performed By: #### L500.2500, L501.4010 #### [facility] [address] [place], [address] TROPONIN-I Collected: 11/13/2017 Status: F Source: [place] 6:15 PM [facility] REPOSITORY Order Comment: CRITICAL VALUE VERIFIED. CALLED TO 11/13/171941 Aundrea Fagan. RESULTS READ BACK BY . TYPE CODE TESTS RESULT OUT OF RANGE REFERENCE UNITS LAB L501.4010 <0.045 ng/mL Normal < 0.015 TROPONIN-I Result Comment: TROPONIN-I EXPECTED VALUES <0.045 Negative 0.045 - 0.590 Consistent with Cardiac Damage > OR = 0.600 Critical Value Not every elevated troponin is indicative of CT. These values should be used with clinical judgement in examining the patient's clinical picture for diagnosis. To establish a diagnosis of CT versus myocardial injury, there must be a demonstrated rise and/or fall in the troponin values, in addition to ischemic symptoms, EKG changes, new regional wall motion abnormality, and/or angiographical evidence. PLEASE NOTE: REFERENCE RANGES EDITED 17 Performed By: #### L500.2500, L501.4010 #### [facility] [address] [place], [address] BNP,B-TYPE NATRIURETIC Collected: 11/13/2017 Status: F Source: [place] 6:15 PM [facility] REPOSITORY TYPE CODE TESTS RESULT OUT OF RANGE REFERENCE UNITS LAB L503.6620 0-100 pg/mL Normal B-TYPE 4.6 NESTOR PEP Performed By: #### L503.6620 #### [facility] [address] [place], [address] LACTIC ACID Collected: 11/13/2017 Status: F Source: [place] 6:15 PM [facility] REPOSITORY Order Comment: CRITICAL VALUE VERIFIED. CALLED TO 11/13/171947 Aundrea Fagan. RESULTS READ BACK BY . Yes/No query for Sepsis Lactate Rule Y TYPE CODE TESTS RESULT OUT OF REFERENCE UNITS RANGE LAB L503.6005 0.4-2.0 mmol/L High alert LACTIC ACID 4.2 Performed By: #### L503.6005 #### [facility] [address] [place], [place], [address] CTA CHEST W/WO Observed: 11/13/2017 Status: F Source: [place] 6:10 PM [facility] REPOSITORY [facility] Imaging Services [address] [place], [place] [address] [address] CTA Chest W/WO Contrast MR#: [id number] Acct: [id number] Name: FAITH GHOSH Rep #: [id number] : 1960 M 57 From: Milagros Dasilva MD PCP: Mackenzie Tejeda MD Status: REG ER Study: CTA Chest W/WO Contrast Date of Exam: 11/13/17 Exam# [id number] Ordering Dr: Shaw Lawson MD STUDY: CTA CHEST REASON FOR EXAM: Male, 57 years old. Shortness of breath. RADIATION DOSAGE (If Supplied By Facility): CTDIvol = ( 16.62 ) mGy, DLP = ( 624.99 ) mGycm TECHNIQUE: The examination was performed with the intravenous administration of 100ML ml of Isovue 370 contrast material. Post-processing of the angiographic images was performed, with multiplanar reformation and 3D reconstruction. Individualized dose optimization techniques were used for this CT. COMPARISON: None. FINDINGS: There is no focal consolidation. Within the right lower lobe there is a subpleural 2.7 mm nodule. Normal enhancement of the main pulmonary artery and right and left pulmonary arteries. There is a filling defect within a subsegmental pulmonary artery within the right middle lobe consistent with an underlying pulmonary embolus (image 118 series 2). Normal thoracic aorta and visualized great vessels. There is no demonstrated aortic dissection. There are calcifications of the coronary arteries. Normal mediastinum. Normal hilar regions. Normal visualized trachea and bronchi. Normal chest wall structures. There are degenerative changes of thoracic spine. Limited images of the upper abdomen demonstrate a gallstone within the gallbladder. CT/CTA Chest W/WO Contrast IMPRESSION: Pulmonary embolus within a right middle lobe subsegmental pulmonary artery. Atherosclerosis. Cholelithiasis. N.B. : The above information has been verbally conveyed by Milagros Dasilva MD to Dr lawson , Referring Physician, on 11/13/2017 18:58:56 (ET). Electronically Signed: Milagros Dasilva MD at 18:52 EDT Tel , Service support , CC: Mackenzie Tejeda MD; Shaw Lawson MD Facility Maintenance Technician: Signed 12 LEAD ELECTROCARDIOGRAM Observed: 11/09/2017 Status: F Source: [place] 2:23 PM [facility] REPOSITORY [facility] [place] [address] [place] [address] 12 Lead EKG 11/04/17 1409 MR#: [id number] Acct: [id number] Name: FAITH GHOSH Rep #: [id number] : 1960 57 From: Mono Higginbotham MD Attending Dr: Rubin Robles DO Status: DIS IN Ordering Dr: Adrien Sarah MD Date: 11/04/17 Location: [facility] Sex: M C Admitted: 11/04/17 Test Reason : CP Blood Pressure : / mmHG Vent. Rate : 123 BPM Atrial Rate : 123 BPM P-R Int : 132 ms QRS Dur : 084 ms QT Int : 322 ms P-R-T Axes : 067 -36 076 degrees QTc Int : 460 ms Sinus tachycardia Left axis deviation Abnormal ECG Confirmed by BRENDA CAMACHO, MONO ([id number]), telegraph editor BERENICE MUNOZ ([id number]) on 11/09/2017 2:23:25 PM Referred By: [facility] Confirmed By:MONO HIGGINBOTHAM MD 11/09/17 1423 Date Mono Higginbotham MD CC: Mackenzie Tejeda MD; Adrien Sarah MD; Rubin Robles DO Signed DISCHARGE INSTRUCTION Observed: 11/07/2017 Status: F Source: [place] 4:53 PM [facility] REPOSITORY [facility] Medical Records Department [address] [place] [address] [place] [address] Instructions for Home/Discharge Instructions 11/07/17 1015 MR#: [id number] Acct: [id number] Name: FAITH GHOSH Rep #: [id number] : 1960 57 From: Rubin Robles DO PCP: Mackenzie Tejeda MD Status: ADM IN ADDENDUM by Rubin Robles DO on 11/07/17 at 1653 Do not stop Singulair, take only one Janumet daily Date Rubin Robles DO cc: Mackenzie Tejeda MD; Kay Umanzor MD * Signed - Discharge Diagnoses Current Active Problems: Current Active and Chronic Problems SIRS (systemic inflammatory response syndrome) (Acute) S/P ileostomy (Chronic) HTN (hypertension) (Chronic) Diabetes mellitus (Chronic) HLD (hyperlipidemia) (Chronic) LUIS ANTONIO (acute kidney injury) (Acute) Schizoaffective disorder (Chronic) Nicotine abuse (Chronic) You will use the following diet at home:: Calorie/Carbohydrate Controlled (specify 1200, 1400, etc) - 1800 julito Your food should be the consistency of: Regular Your liquids should be the consistency of: Regular/Thin Discharge Activity: Return to Normal Activity Weight Bearing Status: Full weight bearing Allergies/Adverse Reactions: Allergies No Known Allergies Allergy (Verified 12/29/16 13:26) Medications to take at Discharge Atenolol [Tenormin (beta vineet)] 25 mg PO DAILY 02/15/15 Clozapine [Clozaril] 100 mg PO BID 02/15/15 Lisinopril [Zestril] 2.5 mg PO DAILY 02/15/15 Lorazepam [Ativan] 2 mg PO BID 02/15/15 Lovastatin [Mevacor] 20 mg PO DAILY 02/15/15 Ames-3 Fatty Acids/Fish Oil [Ames 3 Fish Oil Softgel] 1 cap PO .COMPLEX 02/15/15 Aspirin [Aspirin EC] 81 mg PO DAILY 11/04/17 Cyanocobalamin (Vitamin B-12) [Vitamin B-12] 1,000 mcg PO DAILY 11/04/17 Linaclotide [Linzess] 290 mg PO DAILY 11/04/17 Niacinamide [Niacin] 500 mg PO DAILY 11/04/17 Perphenazine 8 mg PO 4X/DAY 11/04/17 Benztropine [Cogentin] 1 mg PO BID 11/05/17 Pantoprazole Sodium [Protonix] 40 mg PO DAILY 11/05/17 Diphenoxylate/Atrop [Lomotil] 2 tab PO TID #90 tab 11/07/17 Psyllium [Metamucil] 1 packet PO BID packet 11/07/17 Sitagliptin Phos/Metformin HCl [Janumet 50-1,000 MG Tablet] 1 tablet PO BIDCM #1 tablet 11/07/17 The following prescriptions were given: Sitagliptin Phos/Metformin HCl [Janumet 50-1,000 MG Tablet] 1 tablet PO BIDCM #1 tablet Diphenoxylate/Atrop [Lomotil] 2 tab PO TID #90 tab Primary Care Physician: Micheal Tejeda MD [Primary Care Provider] - Please follow up with your Primary Care Physician in: this week Test Results: Test results from this visit will be discussed in further detail at your follow-up appointment, if applicable. 11/07/17 1017 <Electronically signed by Rubin Robles DO> Date Rubin Robles DO CC: Mackenzie Tejeda MD; Kay Umanzor MD BEDSIDE GLUCOSE Collected: 11/07/2017 Status: F Source: [place] 4:50 PM [facility] REPOSITORY TYPE CODE TESTS RESULT OUT OF REFERENCE UNITS RANGE LAB L501.080 70-110 mg/dL High BEDSIDE GLU 140 Result Comment: MANAGEMENT OF PATIENT CARE PER NURSING PROTOCOL Performed By: #### L501.080 #### [facility] Point of Care [address] [facility] [place] [address] DISCHARGE SUMMARY Observed: 11/07/2017 Status: F Source: [place] 4:02 PM [facility] REPOSITORY [facility] Medical Records Department [address] [place] [address] Discharge Summary 11/07/17 1408 MR#: [id number] Acct: [id number] Name: FAITH GHOSH Rep #: [id number] : 1960 57 From: Shane OVALLE PCP: Mackenzie Tejeda MD Status: ADM IN Y [id number] ADDENDUM by Rubin Robles DO on 11/07/17 at 1602 Code Visit Inpatient E AND M: [id number] Disch Hosp 11/07/17 1602 <Electronically signed by Rubin Robles DO> Date Rubin Robles DO cc: VASQUEZ Butler; Mackenzie Tejeda MD; Rubin Robles DO * Signed Discharge Date and Diagnosis - Problem List Patient Problems: Active and Suspected Problems SIRS (systemic inflammatory response syndrome) (Acute) LUIS ANTONIO (acute kidney injury) (Acute) Date of Admission: 11/04/17 Date of Discharge: 11/07/17 - Primary Discharge Diagnosis Active and Suspected Problems Acute severe sepsis secondary to suspected viral gastroenteritis LUIS ANTONIO (acute kidney injury) (Acute) secondary to increased ileostomy output Chronic constipation status post recent ileostomy Hypertension Type 2 diabetes mellitus Hyperlipidemia Schizoaffective disorder Nicotine abuse - Secondary Discharge Diagnosis Chronic Problems S/P ileostomy (Chronic) HTN (hypertension) (Chronic) Diabetes mellitus (Chronic) HLD (hyperlipidemia) (Chronic) Schizoaffective disorder (Chronic) Nicotine abuse (Chronic) Hospital Course and Treatment Imaging Results: RAD/Chest 1 View (Portable) IMPRESSION: Normal x-ray examination of the chest. Venous doppler: Interpretation Summary No evidence for acute deep venous thrombosis bilateral lower extremities with patent and compressible bilateral great saphenous veins. NM/Lung Scan Vent/Perf IMPRESSION: Normal 99m Tc MAA pulmonary perfusion Tc DTPA aerosol ventilation imaging survey, according to revised PIOPED interpretive criteria. RAD/Abd Inc Decub and/or Erect IMPRESSION: Multiple air-fluid levels are present within small and large bowel which could suggest enteritis. Single dilated small bowel loop is present centrally measuring 4.4 cm. [place] loop cannot be excluded. Consider CT correlation if clinically indicated. Consultations Erna - gen surgery 11/04/17 18:24 Consult: Onc/Wound/biomedical engineering supervisor Routine Comment: Reason for Consult:: new colostomy Operations: None Procedures: None Summary of Care Provided: Physical exam on day of discharge: General: Resting comfortably NAD Psych: A/Ox3 normal affect HEENT: [place] AT NC Neck: Supple NT CV: RRR no m/t/r/g/h Resp: CTA Abd: [id number] Soft NT no guarding or rigidity, no irritation around ileostomy. No further distention. Ext: DP2+= no edema Skin: W/D normal turgor Lymph/Heme: No active bleeding or adenopathy Neuro: CN2-12 intact Hospital course: The patient is a 57 year old M with a past medical history of hypertension, hyperlipidemia, nicotine abuse, chronic constipation, patient is status post ileostomy 9 days prior to presentation, who had been home from the hospital for 2 days. He presented to the emergency room with chief complaint of shortness of breath, he was also found to have some abdominal distention, increased output from his ileostomy. He had LUIS ANTONIO. He had not contacted the general surgeon that had performed the ileostomy. He is found to meet sepsis criteria with lactic acidosis, leukocytosis, tachycardia, tachypnea, low temp. He was admitted to the PCU and had a general surgery consultation. CT of the abdomen demonstrated enteritis. He was felt to be viral gastroenteritis contributing to high output from his ileostomy which likely cause significant dehydration is and thus AK I. The patient did have an elevated d-dimer and with that she is complained of shortness of breath and with tachycardia is felt that PE should be ruled out. Due to his kidney function he could not have a CTA and therefore underwent a VQ scan which did not demonstrate PE. Ultrasound of the lower extremities was also negative. Wound care nursing was consulted for ileostomy care. He was treated with aggressive hydration and holding of nephrotoxic agents. The patient improved dramatically however continue to have high output greater than 3 L per day from his ileostomy. He was started on Metamucil, scheduled Imodium, and also received 1 dose of somatostatin while here. C. difficile was negative and enteric panel was negative. He did have positive lactoferrin. By the day of discharge she had significant decrease in his ileostomy output and had no further symptoms. It was felt that he could be discharged home with close follow- up with his PCP and general surgeon. We advised him to continue the Imodium and Metamucil. We also discontinued his metformin at this time decreased his Januvia as these can contribute to GI upset and diarrhea. He is discharged home in stable condition. This patient was seen by Shane Butler PA-C under the supervision of Doctor Robles. [] Discharge Diet: Low fat/ Low Cholesterol, 1800 Calorie Control Diet, 2000 mg Sodium Diet Discharge Activity: Return to Normal Activity Weight Bearing Status: Full weight bearing Home Medications: Medications to take at Discharge Atenolol [Tenormin (beta vineet)] 25 mg PO DAILY 02/15/15 Clozapine [Clozaril] 100 mg PO BID 02/15/15 Lisinopril [Zestril] 2.5 mg PO DAILY 02/15/15 Lorazepam [Ativan] 2 mg PO BID 02/15/15 Lovastatin [Mevacor] 20 mg PO DAILY 02/15/15 Ames-3 Fatty Acids/Fish Oil [Ames 3 Fish Oil Softgel] 1 cap PO .COMPLEX 02/15/15 Aspirin [Aspirin EC] 81 mg PO DAILY 11/04/17 Cyanocobalamin (Vitamin B-12) [Vitamin B-12] 1,000 mcg PO DAILY 11/04/17 Linaclotide [Linzess] 290 mg PO DAILY 11/04/17 Niacinamide [Niacin] 500 mg PO DAILY 11/04/17 Perphenazine 8 mg PO 4X/DAY 11/04/17 Benztropine [Cogentin] 1 mg PO BID 11/05/17 Pantoprazole Sodium [Protonix] 40 mg PO DAILY 11/05/17 Diphenoxylate/Atrop [Lomotil] 2 tab PO TID #90 tab 11/07/17 Psyllium [Metamucil] 1 packet PO BID packet 11/07/17 Sitagliptin Phos/Metformin HCl [Janumet 50-1,000 MG Tablet] 1 tablet PO BIDCM #1 tablet 11/07/17 Following Prescrptions Were Given to Patient: Diphenoxylate/Atrop [Lomotil] 2 tab PO TID #90 tab Sitagliptin Phos/Metformin HCl [Janumet 50-1,000 MG Tablet] 1 tablet PO BIDCM #1 tablet Primary Care Physician: Micheal Tejeda MD [Primary Care Provider] - Please follow up with your Primary Care Physician in: this week Please Follow Up With: General surgery When: 1 week Disposition: Home Minutes spent on discharge:: 35 Patient Condition:: Stable Medical Necessity - Tobacco Use Smoking Status: Current every day smoker Tobacco Use: Cigarettes Meaningful Use Info Meaningful Use Diagnoses (Choose all that apply): None applicable 11/07/17 1415 <Electronically signed by Shane OVALLE> Date Shane OVALLE 11/07/17 1512<Electronically signed by Rubin Robles DO> Cosigner Signature (if applicable): Date Rubin Robles DO CC: VASQUEZ Butler; Mackenzie Tejeda MD; Rubin Robles DO Signed BEDSIDE GLUCOSE Collected: 11/07/2017 Status: F Source: [place] 11:11 AM [facility] REPOSITORY TYPE CODE TESTS RESULT OUT OF REFERENCE UNITS RANGE LAB L501.080 70-110 mg/dL High BEDSIDE GLU 236 Result Comment: MANAGEMENT OF PATIENT CARE PER NURSING PROTOCOL Performed By: #### L501.080 #### [facility] Point of Care [address] [place] [address] BEDSIDE GLUCOSE Collected: 11/07/2017 Status: F Source: [place] 6:53 AM [facility] REPOSITORY TYPE CODE TESTS RESULT OUT OF REFERENCE UNITS RANGE LAB L501.080 70-110 mg/dL High BEDSIDE GLU 149 Result Comment: MANAGEMENT OF PATIENT CARE PER NURSING PROTOCOL Performed By: #### L501.080 #### [facility] Point of Care [address] [place] [address] BASIC METABOLIC Collected: 11/07/2017 Status: F Source: [place] PROFILE ([facility]) 5:35 AM [facility] REPOSITORY TYPE CODE TESTS RESULT OUT OF RANGE REFERENCE UNITS LAB L501.0100 74-106 mg/dL High GLU 149 Result Comment: Fasting Glucose result greater than or equal to 126 mg/dL suggests DIABETES MELLITUS per A.D.A. criteria. Please note revised GLUCOSE reference range effective 2017. LAB L501.1000 7-18 mg/dL High BUN 24 LAB L501.1100 0.70-1.30 mg/dL Normal CREAT,SERUM 0.93 Result Comment: The validity of the calculated GFR AND GFRAA in patients over 70 years has not been determined. Clinical correlation is essential. LAB L501.1110 >60 mL/min Normal EST GFR 90 Result Comment: Non- GFR Calc LAB L501.1115 >60 mL/min Normal EST GFR - AA 108 Result Comment: GFR Calc LAB L501.1255 ml/min Normal Estimated CRCL 101.43 LAB L501.1300 10-20 RATIO High BUN/CRE 25.8 LAB L501.2200 8.5-10 mg/dL Low .1 CA 8.2 LAB L501.5300 136-14 mmol/L 5 NA Normal 138 LAB L501.5600 3.5-5. mmol/L 1 K Normal 3.7 LAB L501.5900 98-107 mmol/L High CL 111 LAB L501.6100 21.0-3 mmol/L Low 2.0 CO2 18.0 LAB L501.6200 5-15 GAP Normal 9 Performed By: #### L500.2500 #### [facility] [address] [facility] [address] BEDSIDE GLUCOSE Collected: 11/06/2017 Status: F Source: [place] 9:11 PM [facility] REPOSITORY TYPE CODE TESTS RESULT OUT OF REFERENCE UNITS RANGE LAB L501.080 70-110 mg/dL High BEDSIDE GLU 210 Result Comment: MANAGEMENT OF PATIENT CARE PER NURSING PROTOCOL Performed By: #### L501.080 #### [facility] Point of Care [address] [place] [address] BEDSIDE GLUCOSE Collected: 11/06/2017 Status: F Source: [place] 4:26 PM [facility] REPOSITORY TYPE CODE TESTS RESULT OUT OF REFERENCE UNITS RANGE LAB L501.080 70-110 mg/dL High BEDSIDE GLU 131 Result Comment: MANAGEMENT OF PATIENT CARE PER NURSING PROTOCOL Performed By: #### L501.080 #### [facility] Point of Care [address] [place] [address] BEDSIDE GLUCOSE Collected: 11/06/2017 Status: F Source: [place] 11:10 AM [facility] REPOSITORY TYPE CODE TESTS RESULT OUT OF REFERENCE UNITS RANGE LAB L501.080 70-110 mg/dL High BEDSIDE GLU 215 Result Comment: MANAGEMENT OF PATIENT CARE PER NURSING PROTOCOL Performed By: #### L501.080 #### [facility] Point of Care [address] [place] [address] BEDSIDE GLUCOSE Collected: 11/06/2017 Status: F Source: [place] 6:47 AM [facility] REPOSITORY TYPE CODE TESTS RESULT OUT OF REFERENCE UNITS RANGE LAB L501.080 70-110 mg/dL High BEDSIDE GLU 147 Result Comment: MANAGEMENT OF PATIENT CARE PER NURSING PROTOCOL Performed By: #### L501.080 #### [facility] Point of Care [address] [facility] [place] [address] CBC W/DIFF, AUTOMATED Collected: 11/06/2017 Status: F Source: [place] 5:55 AM [facility] REPOSITORY TYPE CODE TESTS RESULT OUT OF RANGE REFERENCE UNITS LAB L100.1000 4.4-11.0 K/mm3 Normal WBC 9.9 LAB L100.1200 4.6-6.2 M/mm3 Normal RBC 5.32 LAB L100.1300 13.0-16.5 g/dl Normal HGB 15.4 LAB L100.1400 40-54 % Normal HCT 45.1 LAB L100.1500 80-94 fL Normal MCV 84.8 LAB L100.1600 27.0-32.0 pg Normal MCH 28.9 LAB L100.1700 32-36 g/gl Normal MCHC 34.1 LAB L100.1810 11.6-14.6 % Normal RDW CV 13.5 LAB L100.1820 35.1-43.9 fl Normal RDW SD 41.4 LAB L100.1900 150-450 K/mm3 Normal PLT 280 LAB L100.2000 6.2-12.0 fl Normal MPV 10.9 LAB L100.2100 47-70 % Normal NEUT% 56.2 LAB L100.2200 19-41 % Normal LY% 26.3 LAB L100.2300 0-10 % High MONO% 14.8 LAB L100.2400 0-5 % Normal EO% 1.7 LAB L100.2500 0-1 % Normal BASO% 0.3 LAB L100.2550 0.0-0.9 % Normal IM GRAN % 0.700 Result Comment: IG% - Immature Granulocytes (promyelocytes, myelocytes and metamyelocytes) > 1% indicates that a LEFT SHIFT is Present. LAB L100.2620 2.0-7.7 X10 3/uL Normal Absolute Neut 5.5 LAB L100.2720 0.83-4.51 X10 3/ul Normal Absolute Lymph 2.60 Performed By: #### L100.0100 #### [facility] [address] [place], [address] BASIC METABOLIC Collected: 11/06/2017 Status: F Source: [place] PROFILE ([place]) 5:55 AM [facility] REPOSITORY TYPE CODE TESTS RESULT OUT OF RANGE REFERENCE UNITS LAB L501.0100 74-106 mg/dL High GLU 137 Result Comment: Fasting Glucose result greater than or equal to 126 mg/dL suggests DIABETES MELLITUS per A.D.A. criteria. Please note revised GLUCOSE reference range effective 2017. LAB L501.1000 7-18 mg/dL High BUN 28 LAB L501.1100 0.70-1.30 mg/dL Normal CREAT,SERUM 1.16 Result Comment: The validity of the calculated GFR AND GFRAA in patients over 70 years has not been determined. Clinical correlation is essential. LAB L501.1110 >60 mL/min Normal EST GFR 69 Result Comment: Non- GFR Calc LAB L501.1115 >60 mL/min Normal EST GFR - AA 84 Result Comment: GFR Calc LAB L501.1255 ml/min Normal Estimated CRCL 81.32 LAB L501.1300 10-20 RATIO High BUN/CRE 24.1 LAB L501.2200 8.5-10 mg/dL Low .1 CA 8.3 LAB L501.5300 136-14 mmol/L Normal 5 NA 136 LAB L501.5600 3.5-5. mmol/L Normal 1 K 3.6 LAB L501.5900 98-107 mmol/L High CL 108 LAB L501.6100 21.0-3 mmol/L Low 2.0 CO2 18.0 LAB L501.6200 5-15 Normal GAP 10 Performed By: #### L500.2500 #### [facility] [address] [place], [address] BEDSIDE GLUCOSE Collected: 11/05/2017 Status: F Source: [place] 9:16 PM [facility] REPOSITORY TYPE CODE TESTS RESULT OUT OF REFERENCE UNITS RANGE LAB L501.080 70-110 mg/dL High BEDSIDE GLU 140 Result Comment: MANAGEMENT OF PATIENT CARE PER NURSING PROTOCOL Performed By: #### L501.080 #### [facility] Point of Care [address] [place], [place] [address] VENOUS DUPLEX LOWER Observed: 11/05/2017 Status: F Source: [place] EXTREMITY 7:08 PM [facility] REPOSITORY [facility] Cardiovascular Services [address] [place] [address] Venous Duplex US - Bk Extrem 11/04/17 1514 MR#: [id number] Acct: [id number] Name: FAITH GHOSH Rep #: [id number] : 1960 57 From: Kwasi Aparicio MD Attending Dr: Rubin Robles DO Status: ADM IN Ordering Dr: Adrien Sarah MD Date: 11/04/17 Location: [facility] Sex: M C Admitted: 11/04/17 Reason For Study: SOB RIGHT LEFT GSV is normal. GSV is normal. CFV is compressible, spontaneous, phasic, CFV is compressible, spontaneous, phasic, competent and demonstrates normal competent, and demonstrates normal augmentation. augmentation. FV is compressible, spontaneous, phasic, FV is compressible, spontaneous, phasic, competent and demonstrates normal competent and demonstrates normal augmentation. augmentation. POP V is compressible, spontaneous, phasic, POP V is compressible, spontaneous, phasic, competent and demonstrates normal competent and demonstrates normal augmentation. augmentation. T/P Trunk is compressible. T/P Trunk is compressible. PTV is compressible. PTV is compressible. RT PerV is compressible. LT PerV is compressible. Procedure Exam performed portable in ED. The exam was diagnostic. A preliminary report was called and/or faxed to Dr. Maricruz Sarah @ 3:30 pm AND ED. Interpretation Summary No evidence for acute deep venous thrombosis bilateral lower extremities with patent and compressible bilateral great saphenous veins. Ordering Physician: Adrien Sarah Referring Physician: Kyree Lao Performed By: Camille Flores, STEVECS, RVT 11/05/171907 Date Kwasi Aparicio MD CC: Mackenzie Tejeda MD; Adrien Sarah MD; Rubin Robles DO Date Dictated: 11/04/17 1514 Date Transcribed: 11/05/171907 Facility Maintenance Technician: Signed BEDSIDE GLUCOSE Collected: 11/05/2017 Status: F Source: [place] 4:08 PM [facility] [place] REPOSITORY TYPE CODE TESTS RESULT OUT OF REFERENCE UNITS RANGE LAB L501.080 70-110 mg/dL High BEDSIDE GLU 157 Result Comment: MANAGEMENT OF PATIENT CARE PER NURSING PROTOCOL Performed By: #### L501.080 #### [facility] Point of Care [address] [place], [place] [id number] BEDSIDE GLUCOSE Collected: 11/05/2017 Status: F Source: [place] 11:30 AM [facility] [place] REPOSITORY TYPE CODE TESTS RESULT OUT OF REFERENCE UNITS RANGE LAB L501.080 70-110 mg/dL High BEDSIDE GLU 191 Result Comment: MANAGEMENT OF PATIENT CARE PER NURSING PROTOCOL Performed By: #### L501.080 #### [facility] Point of Care [address] [place], [place] [id number] BEDSIDE GLUCOSE Collected: 11/05/2017 Status: F Source: [place] 6:58 AM [facility] [place] REPOSITORY TYPE CODE TESTS RESULT OUT OF REFERENCE UNITS RANGE LAB L501.080 70-110 mg/dL High BEDSIDE GLU 169 Result Comment: MANAGEMENT OF PATIENT CARE PER NURSING PROTOCOL Performed By: #### L501.080 #### [facility] Point of Care [address] [place] [address] CBC W/DIFF, AUTOMATED Collected: 11/05/2017 Status: F Source: [place] 5:50 AM [facility] [place] REPOSITORY TYPE CODE TESTS RESULT OUT OF RANGE REFERENCE UNITS LAB L100.1000 4.4-11.0 K/mm3 Normal WBC 8.9 LAB L100.1200 4.6-6.2 M/mm3 Normal RBC 5.51 LAB L100.1300 13.0-16.5 g/dl Normal HGB 16.3 LAB L100.1400 40-54 % Normal HCT 46.8 LAB L100.1500 80-94 fL Normal MCV 84.9 LAB L100.1600 27.0-32.0 pg Normal MCH 29.6 LAB L100.1700 32-36 g/gl Normal MCHC 34.8 LAB L100.1810 11.6-14.6 % Normal RDW CV 13.2 LAB L100.1820 35.1-43.9 fl Normal RDW SD 40.8 LAB L100.1900 150-450 K/mm3 Normal PLT 264 LAB L100.2000 6.2-12.0 fl Normal MPV 10.7 LAB L100.2100 47-70 % Normal NEUT% 61.9 LAB L100.2200 19-41 % Normal LY% 21.7 LAB L100.2300 0-10 % High MONO% 14.2 LAB L100.2400 0-5 % Normal EO% 1.6 LAB L100.2500 0-1 % Normal BASO% 0.2 LAB L100.2550 0.0-0.9 % Normal IM GRAN % 0.400 Result Comment: IG% - Immature Granulocytes (promyelocytes, myelocytes and metamyelocytes) > 1% indicates that a LEFT SHIFT is Present. LAB L100.2620 2.0-7.7 X10 3/uL Normal Absolute Neut 5.5 LAB L100.2720 0.83-4.51 X10 3/ul Normal Absolute Lymph 1.93 Performed By: #### L100.0100 #### [facility] [address] [place], [address] BASIC METABOLIC Collected: 11/05/2017 Status: F Source: [place] [facility]) 5:50 AM [facility] [place] REPOSITORY TYPE CODE TESTS RESULT OUT OF RANGE REFERENCE UNITS LAB L501.0100 74-106 mg/dL High GLU 159 Result Comment: Fasting Glucose result greater than or equal to 126 mg/dL suggests DIABETES MELLITUS per A.D.A. criteria. Please note revised GLUCOSE reference range effective 2017. LAB L501.1000 7-18 mg/dL High BUN 33 LAB L501.1100 0.70-1.30 mg/dL High CREAT,SERUM 1.71 Result Comment: The validity of the calculated GFR AND GFRAA in patients over 70 years has not been determined. Clinical correlation is essential. LAB L501.1110 >60 mL/min Low EST GFR 44 Result Comment: Non- GFR Calc LAB L501.1115 >60 mL/min Low EST GFR - AA 54 Result Comment: GFR Calc LAB L501.1255 ml/min Normal Estimated CRCL 55.16 LAB L501.1300 10-20 RATIO Normal BUN/CRE 19.3 LAB L501.2200 8.5-10 mg/dL Normal .1 CA 8.6 LAB L501.5300 136-14 mmol/L Normal 5 NA 136 LAB L501.5600 3.5-5. mmol/L Normal 1 K 4.0 LAB L501.5900 98-107 mmol/L Normal CL 107 LAB L501.6100 21.0-3 mmol/L Low 2.0 CO2 17.0 LAB L501.6200 5-15 Normal GAP 12 Performed By: #### L500.2500 #### [facility] [address] [facility] [place], [address] ABD INC DECUB Observed: 11/05/2017 Status: F Source: [place] AND/OR ERECT 12:00 AM [facility] REPOSITORY [facility] [address] [place] [address] Abd Inc Decub and/or Erect MR#: [id number] Acct: [id number] Name: FAITH GHOSH J Rep #: [id number] : 1960 M 57 From: Marques Bermudez MD PCP: Mackenzie Tejeda MD Status: ADM IN Study: Abd Inc Decub and/or Erect Date of Exam: 11/05/17 Exam# [id number] Ordering Dr: Kay Umanzor MD STUDY: X-RAY - ABDOMEN/PELVIS REASON FOR EXAM: Male, 57 years old. Diarrhea TECHNIQUE: 5 views, including multiple decubitus views. COMPARISON: 08/31/2016 FINDINGS: Normal visualized lung bases. Multiple air-fluid levels are present within small and large bowel which could suggest enteritis. Single dilated small bowel loop is present centrally measuring 4.4 cm. [place] loop cannot be excluded. Consider CT correlation if clinically indicated. There is no demonstrated free abdominal air. The visualized liver, spleen and kidneys are grossly normal in size and morphology. Normal soft tissue structures. Normal visualized osseous structures. RAD/Abd Inc Decub and/or Erect IMPRESSION: Multiple air-fluid levels are present within small and large bowel which could suggest enteritis. Single dilated small bowel loop is present centrally measuring 4.4 cm. [place] loop cannot be excluded. Consider CT correlation if clinically indicated. Electronically Signed: Marques Bermudez MD at 5:05 EDT Tel , Service support , CC: Mackenzie Tejeda MD; Kay Umanzor MD Facility Maintenance Technician: Signed BEDSIDE GLUCOSE Collected: 11/04/2017 Status: F Source: [place] 10:07 PM [facility] [place] REPOSITORY TYPE CODE TESTS RESULT OUT OF REFERENCE UNITS RANGE LAB L501.080 70-110 mg/dL High BEDSIDE GLU 161 Result Comment: MANAGEMENT OF PATIENT CARE PER NURSING PROTOCOL Performed By: #### L501.080 #### [facility] Point of Care [address] [place] [address] LACTIC ACID Collected: 11/04/2017 Status: F Source: [place] 7:42 PM [facility] [place] REPOSITORY TYPE CODE TESTS RESULT OUT OF RANGE REFERENCE UNITS LAB L503.6005 0.4-2.0 mmol/L Normal LACTIC ACID 1.3 Performed By: #### L503.6005 #### [facility] [address] [place], [address] HISTORY AND PHYSICAL Observed: 11/04/2017 Status: F Source: [place] EXAM 7:38 PM [facility] [place] REPOSITORY [facility] Medical Records Department [address] [place] [address] History and Physical 07/12/18 1713 MR#: [id number] Acct: [id number] Name: FAITH GHOSH Rep #: [id number] : 1960 57 From: Shane OVALLE PCP: Mackenize Tejeda MD Status: ADM IN Y Location: [place] [address] <Shane Butler - Last Filed: 11/04/17 17:13> Problem List (1) LUIS ANTONIO (acute kidney injury) Status: Acute (2) SIRS (systemic inflammatory response syndrome) Status: Acute (3) S/P ileostomy Status: Chronic (4) HTN (hypertension) Status: Chronic (5) Diabetes mellitus Status: Chronic Qualifiers: Diabetes mellitus type: type 2 (6) HLD (hyperlipidemia) Status: Chronic (7) Schizoaffective disorder Status: Chronic (8) Nicotine abuse Status: Chronic History of Present Illness Date of Admission: 11/04/17 Chief Complaint: SOB The patient is a 57 year old M with a hx of chronic constipation and diarrhea for which he just underwent an ileostomy at [facility] 9 days prior, discharged from the hospital 2 days ago. He also has a hx of schizoaffective disorder, HTN, DMt2, nicotine abuse, and HLD. He presents today with increased SOB. He has no cough. He has been tracking the output of his ileostomy and notes >2400 cc / day. He has some abdominal distention. The output is dark green. He has no fevers or chills. No cough. No urinary complaints. No anal output. No nausea or vomiting. No abdominal pain. No CP. [] Past Medical History Past Medical History (Chronic Problems): Chronic Problems S/P ileostomy (Chronic) HTN (hypertension) (Chronic) Diabetes mellitus (Chronic) HLD (hyperlipidemia) (Chronic) Schizoaffective disorder (Chronic) Nicotine abuse (Chronic) Allergies No Known Allergies Allergy (Verified 12/29/16 13:26) Home Medications: Ambulatory Orders Medication Instructions Recorded Atenolol [Tenormin (beta Vineet)] 25 mg PO BID 02/15/15 Surgical History: - - ileostomy Psychiatric History: - - schizoaffective Lives: With Family Smoking Status: Current every day smoker Tobacco Use: Cigarettes Alcohol: Occasional Drugs: None - *Family History Maternal History Items: High Cholesterol Paternal History Items: Unknown Review of Systems Constitutional: Denies: Chills, Fever, Weight Change HEENT: Denies: Head Aches, Sinus Congestion, Sinus Drainage Cardiovascular: Denies: Chest Pain, Palpitations Respiratory: Reports: Shortness of Breath, Shortness of breath at rest. Denies: Cough, Sputum production Gastrointestinal: Reports: - - increased output from ileostomy. Denies: Abdominal Pain, Nausea, Vomiting Genitourinary: Denies: Dysuria Musculoskeletal: Denies: Joint Pain, Joint Tenderness Skin: Denies: Rash, Wounds Neurological: Denies: Numbness, Tingling, Focal weakness Psychiatric: Denies: Anxiety, Depression, Homicidal Ideations, Suicidal Ideations Hematologic/ Lymphatic: Denies: Easy Bruising, Easy Bleeding VTE Information - Inpt Only VTE Present on Admission: No VTE Mechan Device Prophylaxis: None VTE Pharm Prophylaxis ordered?: Yes Patient Problems: Active and Suspected Problems SIRS (systemic inflammatory response syndrome) (Acute) LUIS ANTONIO (acute kidney injury) (Acute) - Physical Exam General: Alert, Oriented x3, Cooperative HEENT: Atraumatic, PERRLA, EOMI, Normocephalic Neck: Supple, No JVD, Negative Carotid Bruits Lungs: Clear to auscultation, Normal air movement Cardiovascular: Regular rate, No murmurs Abdomen: Bowel Sounds Present, Soft, Non Tender, Distended Extremities: No edema, Capillary Refill Less than 3 Seconds Skin: No rashes, No breakdown Musculoskeletal: No Tenderness to Palpation of Joints or Extremities Neurological: Cranial nerves II-XII grossly intact Psych/Mental Status: Normal Affect, Appropriate Vital Signs Temp Pulse Resp BP Pulse Ox 95.3 F L 104 H 29 H 109/75 98 11/04/17 14:05 11/04/17 17:05 11/04/17 17:05 11/04/17 17:05 11/04/17 17:05 Oxygen Delivery Method Room Air Weight: 95.254 kg Body Mass Index (BMI) 27.7 Finger Stick Blood Glucose 206 Laboratory Tests Past 24 Hrs WBC 14.3 H RBC 6.16 WBC RBC Hgb Hct MCV MCH MCHC RDW RDW Differential Plt Count MPV Immature Gran % (Auto) Neut % (Auto) Lymph % (Auto) POC Glucose POC Glucose 206 H Assessment/Plan All Active Problems SIRS (systemic inflammatory response syndrome) (Acute) LUIS ANTONIO (acute kidney injury) (Acute) 1. SOB - unclear etiology with SIRS criteria present, lactic acidosis. Lungs are clear to auscultation, no cough, negative CXR. Pt will be given IV hydration. Elevated D dimer. Will have VQ scan tomorrow, until then will receive 1 dose therapeutic lovenox. -leukocytosis, lactic acidosis, tachycardic, tachypneic, low temp, elevated gap. 2. LUIS ANTONIO - hydrate. possibly dehydrated 2/2 increased output. Hold janumet, lisinopril 3. s/p ileostomy and recently DCd from [facility] main with increased output - Dr. Dixon will be consulted. He is somewhat distended. Check for Cdiff/enteric panel, lactoferrin. 4. HTN - home meds, Hold lisinopril 5. HLD - statin held. 6. DMt2 - orals held, SSI 7. Schizoaffective disorder - continue home meds. DVT ppx: 1xdose therapeutic lovenox until VQ scan DC planning: lives with family. PTOT. Recent prolonged hospital stay, likely deconditioned. This patient was seen by Shane Butler PA-C under the supervision of Doctor Mariely. <Deneen Schuster - Last Filed: 11/04/17 19:38> History of Present Illness The patient is a 57 year old M [] Past Medical History Allergies No Known Allergies Allergy (Verified 12/29/16 13:26) - Physical Exam Vital Signs Temp Pulse Resp BP Pulse Ox 96 F L 106 H 14 108/68 96 11/04/17 17:52 11/04/17 17:52 11/04/17 17:52 11/04/17 17:52 11/04/17 17:52 Oxygen Delivery Method Room Air Weight: 96 kg Body Mass Index (BMI) 27.9 Intake and Output for Last 24 Hours Output Total 600 / 600 Balance -600 / -600 Microbiology Past 72 Hours 11/04/17 17:50 Stool Lactoferrin - Final Stool POC Glucose POC Glucose 143 H Assessment/Plan Patient seen and examined with physician assistant fitness manager, Shane Butler. I agree with his above documented history, physical exam, and assessment and plan. 57-year-old male with past medical history of schizoaffective disorder, hypertension, hyperlipidemia, type II DM, chronic constipation alternating with chronic diarrhea, who is status post ileostomy for intestinal obstruction, 10 days ago. Patient was discharged from the [facility] 2 days ago. He comes in complaining of increased shortness of breath as well as increased output from his ileostomy more than 2400 mls/day. He has associated abdominal distention but denied any fever or chills or cough or chest pain or palpitations. Physical exam; GEN: Obese, appears well hydrated, no jaundice, not pale, appears comfortable CVS: Heart sounds 1 and 2, tachycardia, no murmurs. RESP: Diminished at the lung bases but otherwise vascular breath sounds no added sounds ABD: Right ileostomy, liquid green stools in ostomy bag, abdomen looks distended, soft, nontender EXT: No bilateral leg edema Labs: Leukocytosis with WBC count of 14.3, hemoglobin of 18.4, baseline hemoglobin of about 15-16 , platelet count of 390, d-dimer was 1.45, sodium 135, potassium 4.6, chloride 101, bicarbonate 18, BUN is 17, creatinine is 3.49, baseline creatinine of about 1, troponins is negative, lactic acid 2.2, glucose 202 Imaging: Chest x-ray is negative. A/P: 1. Severe sepsis, unclear etiology, doubt that patient has infection. Elevated lactic acid could very well be related to hypoxia, will trend 2. Increased output from ileostomy site, status post recent ileostomy, consult general surgery 3. Elevated hemoglobin, in a patient with baseline hemoglobin of 15-16, questionable chronic hypoxia vs polycythemia 4. LUIS ANTONIO on CKD, baseline creatinine of 1 5. Anion gap secondary to LUIS ANTONIO 6. Elevated d-dimer, tachycardia concerning for possible PE, Doppler ultrasound in the ED has been negative, cannot do CTA PE protocol because of LUIS ANTONIO, will do VQ scan 7. Hyperglycemia in a known type II diabetic 8. Hypertension, controlledf 9. Hyperlipidemia 10.Schizoaffective disorder 11.DVT prophylaxis with Lovenox subcu Blood cultures 2, will start on empiric Zosyn pending blood cultures as we do not have a new of infection, will monitor Stool cultures, stool for C. difficile, stool for enteric panel, place and contact isolation for now We will continue most of his medications, hold lisinopril, hold Janumet, continue on IV fluids, labs in a.m., VQ scan in a.m. as radiology appears to have left for the day. We will consult general surgery, wound nurse to assist with management of ileostomy, since he had a recent surgery. We will start patient on 1 dose of therapeutic Lovenox pending results of VQ scan Code Visit Inpatient Noah AND M: [id number] Init Hosp L3 11/04/17 1731 <Electronically signed by Shane OVALLE> Date Shane OVALLE 11/04/17 1938<Electronically signed by Deneen Schuster MD> Cosigner Signature: Date (if applicable) Deneen Schuster MD CC: VASQUEZ Butler; Deneen Schuster MD; Mackenzie Tejeda MD Signed CONSULTATION Observed: 11/04/2017 Status: F Source: [place] 7:27 PM [facility] REPOSITORY [facility] Medical Records Department [address] [place] [address] Consultation 11/04/171914 MR#: [id number] Acct: [id number] Name: FAITH GHOSH Rep #: [id number] : 1960 57 From: Kay Umanzor MD PCP: Mackenzie Tejeda MD Status: ADM IN Location: [place] [address]1 Reason for Consult Date of Consultation: 11/04/17 History of Present Illness: The patient is a 57 year old M with a history of chronic severe constipation, hypertension, hyperlipidemia, diabetes, COPD, anxiety and hallucinations/schizoaffective disorder. I attempted to perform colonoscopy on the patient in 2006. He stated he completed his complete bowel prep at that time. his colonoscopy had a poor prep and he was unable to be completely evaluated. He has since been evaluated clinically and clinic main campus. His workup concluded that he had an overall chronic constipation with decreased colonic transit and outlet-type obstruction. Decision was made to perform a loop ileostomy. The patient underwent attempted colonoscopy which again demonstrated incomplete preparation and laparoscopic loop ileostomy on October 25. Diagnostic laparoscopy demonstrated no obvious abnormalities. A loop ileostomy was created over a stoma bar. Postoperatively, the patient agree of an ileus requiring an nasogastric tube. He had return of bowel function, the nasogastric tube was removed and the patient was tolerating a diet at discharge on November 02, 2017. notably, the patient had relatively balanced. Input and output during the last 2 days of hospitalization. On November 02, the patient's hemoglobin was 13.4, BUN was 9 and creatinine was 0.75 the patient presents now to [facility] emergency department with a complaint of shortness of breath. He had a blood pressure of 83/60, when he presented. Chest x-ray no acute abnormality. Ultrasound lower extremities shows no DVT. EKG sinus tachycardia 123. No acute signs of ischemia. CBC shows a white count of 14 H AND H 18 and 15. No bands. Electrolytes sodium 135. CO2 18. BUN 27 creatinine 3.49. Anion gap 16. Upon normal. D-dimer slightly elevated 1.45 lactic acid 2.8. since fluid rehydration, the patient is noted resolution of her shortness of breath. He is currently on the floor in the PCU comfortable watching television. He has noted higher stoma output for the past 2 days. Past Medical History Past Medical History (Chronic Problems): Chronic Problems S/P ileostomy (Chronic) HTN (hypertension) (Chronic) Diabetes mellitus (Chronic) HLD (hyperlipidemia) (Chronic) Schizoaffective disorder (Chronic) Nicotine abuse (Chronic) Allergies No Known Allergies Allergy (Verified 12/29/16 13:26) Home Medications: Ambulatory Orders Medication Instructions Recorded Atenolol [Tenormin (beta Vineet)] 25 mg PO BID 02/15/15 Surgical History: - - ileostomy Psychiatric History: - - schizoaffective Lives: With Family Smoking Status: Current every day smoker Tobacco Use: Cigarettes Alcohol: Occasional Drugs: None - *Family History Maternal History Items: High Cholesterol Paternal History Items: Unknown Review of Systems Constitutional: Denies: Chills, Fever, Weight Change HEENT: Denies: Head Aches, Sinus Congestion, Sinus Drainage Cardiovascular: Denies: Chest Pain, Palpitations Respiratory: Reports: Shortness of Breath. Denies: Cough, Shortness of breath at rest, Sputum production Gastrointestinal: Denies: Abdominal Pain, Nausea, Vomiting Genitourinary: Denies: Dysuria Musculoskeletal: Denies: Joint Pain, Joint Tenderness Skin: Denies: Rash, Wounds Neurological: Denies: Numbness, Tingling, Focal weakness Psychiatric: Denies: Anxiety, Depression, Homicidal Ideations, Suicidal Ideations Hematologic/ Lymphatic: Denies: Easy Bruising, Easy Bleeding Patient Problems: Active and Suspected Problems SIRS (systemic inflammatory response syndrome) (Acute) LUIS ANTONIO (acute kidney injury) (Acute) - Physical Exam General: Alert, Oriented x3 HEENT: Atraumatic, PERRLA, EOMI, Normocephalic Lungs: Clear to auscultation, Normal air movement Cardiovascular: Regular rate, No murmurs Abdomen: Bowel Sounds Present, Soft - mildly distended, right lower quadrant loop ileostomy in place. There are 2 lumen noted. The superior is the larger the inferior the smaller/likely colonic event. The patient has normal-appearing ileostomy output. There is some chronic induration/edema on the lateral side of the stoma. This is likely where the stoma bar was present that the patient noted was removed before discharge. Otherwise, his stoma looks entirely healthy. There is no erythema around the stoma. Vital Signs Temp Pulse Resp BP Pulse Ox 96 F L 106 H 14 108/68 96 11/04/17 17:52 11/04/17 17:52 11/04/17 17:52 11/04/17 17:52 11/04/17 17:52 Oxygen Delivery Method Room Air Weight: 96 kg Body Mass Index (BMI) 27.9 Intake and Output for Last 24 Hours Output Total 600 / 600 Balance -600 / -600 Microbiology Past 72 Hours 11/04/17 17:50 Stool Lactoferrin - Final Stool POC Glucose POC Glucose 143 H Assessment/Plan All Active Problems SIRS (systemic inflammatory response syndrome) (Acute) LUIS ANTONIO (acute kidney injury) (Acute) likely dehydration from high stoma output, history of chronic constipation, shortness of breath, doubt PE clinically, history of schizoaffective disorder I would recommend obtaining an abdominal multiview just to assess for bowel gas pattern. I would monitor strict ins and outs to assess the total ileostomy output. Ironically given his motility disorders, if his output is high somatostatin or other agent may be needed temporarily. I anticipate with adequate hydration. His electrode central function will improve. Agree with plan for a VQ scan the morning, but do not feel that CT angiogram is necessary. Clinically, given his improvement in symptoms compared to the risk of renal injury given his dehydrated status. 11/04/171926 <Electronically signed by Kay Umanzor MD> Date Kay Umanzor MD Cosigner Signature (if applicable): Date CC: Mackenzie Tejeda MD; Kay Umanzor MD Signed BEDSIDE GLUCOSE Collected: 11/04/2017 Status: F Source: [place] 6:20 PM [facility] REPOSITORY TYPE CODE TESTS RESULT OUT OF REFERENCE UNITS RANGE LAB L501.080 70-110 mg/dL High BEDSIDE GLU 143 Result Comment: MANAGEMENT OF PATIENT CARE PER NURSING PROTOCOL Performed By: #### L501.080 #### [facility] Point of Care [address] [place] [address]. [place], [place] [id number] STOOL Observed: 11/04/2017 Status: F Source: [place] LACTOFERRIN/WBC 5:50 PM [facility] REPOSITORY Stool Lacto/WBC Normal Reference Range = Negative Fecal WBC Lactoferrin Positive: Fecal WBC Lactoferrin present Performed By: #### M100.0605 #### [facility] [facility]. [place], [place], [address] Observed: 11/04/2017 Status: F Source: [place] CDIFF (MOLECULAR) 5:50 PM [facility] REPOSITORY Is the patient receiving laxatives? N New/unexplained onset of 3 or more stools in past 24 hrs? Y Cdiff-Molecular Normal Reference Range = Negative C. Diff DNA Negative- No toxigenic C. Diff DNA Detected NAAT METHOD Testing was performed using nucleic acid amplification Performed By: #### M100.6796 #### [facility] [address] [facility] [place], [place], [address] Observed: 11/04/2017 Status: F Source: [place] ENTERIC PATHOGEN 5:50 PM [facility] PANEL STOOL REPOSITORY EP PANEL STOOL Not detected for Campylobacter group, Salmonella species, Shigella species, Vibrio Group, Yersinia enterocolitica, EHEC (Shiga Toxin 1, Shiga Toxin 2), Norovirus Gl/Gll, and Rotavirus A. Other common stool pathogens are not detected on this panel include: Aeromonas/Plesiomonas or parasites. Order testing for these organisms separately if suspected. This is an amplified DNA test which makes it both specific and sensitive. Normal Reference Range = Not Detected CAMPYLOBACTER Not Detected Salmonella Not Detected Shigella sp. Not Detected Shiga Toxin Not Detected Yersinia Not Detected VIBRIO Not Detected Norovirus Not Detected Rotavirus Not Detected Performed By: #### M100.637 #### [facility] [address] [facility] [place], [address] EMERGENCY DEPARTMENT Observed: 11/04/2017 Status: F Source: [place] SUMMARY 5:48 PM [facility] REPOSITORY [facility] Medical Records Department [address] [place] [address] Emergency Department Summary 11/04/17 1440 MR#: [id number] Acct: [id number] Name: FAITH GHOSH Rep #: [id number] : 1960 57 From: Adrien Sarah MD PCP: Mackenzie Tejeda MD Status: ADM IN - ER Visit Summary Date of Service: 11/04/17 Chief Complaint: Shortness of breath History of Present Illness: The patient is a 57 M status post recent ileostomy about 2 weeks ago at the [facility]. He was hospitalized for about a week after that. Recently has been home. Last 2 days he states he has been short of breath. Really denies any significant chest pain. Denies any prior history of DVT or PE. Denies any leg pain or swelling. Denies any hemoptysis. Denies any gross blood coming from his ostomy site. He denies any fever or significant cough. Physical Examination: Middle-aged male. Vital signs blood pressure 109/65 when I am in the room his pressure is 83/70. Temperature 95.3 heart rate 131. He is 95% on room air begins talking becomes hypoxic. H EENT exam unremarkable moist wheeze membranes. Neck nontender no JVD. No lymphadenopathy. Lungs clear to auscultation bilaterally. Heart tachycardic rate about 130 no murmur. Chest wall nontender. Abdomen soft, nondistended, normal bowel sounds no peritoneal signs. His right lower quadrant ileostomy with liquid brown stool. No gross blood. No melena. Moving all 4 extremities. Calves are nontender without edema or cords. Equal symmetrical radial pulses. Neurologically is awake alert with no focal motor deficits. Test Results: Chest x-ray no acute abnormality. Ultrasound lower extremities shows no DVT. EKG sinus tachycardia 123. No acute signs of ischemia. CBC shows a white count of 14 H AND H 18 and 15. No bands. Electrolytes sodium 135. CO2 18. BUN 27 creatinine 3.49. Anion gap 16. Upon normal. D-dimer slightly elevated 1.45 lactic acid 2.8. Patient does have an acute renal injury with creatinine of 3.49 previously was 1.26. Emergency Department Course and Treatment: Patient with recent surgery with hypoxia and dyspnea. He will undergo cardiac workup. Receive IV fluids for his hypotension. And a strong consideration has to be given for the possibility of a pulmonary embolus. Treatment Plan: Patient looks much better on repeat exam in 1641 after IV fluids. This may all be secondary to dehydration from the ileostomy. Patient feels better and his pulse ox is 97% on room air. We are unable to do a CTA due to his renal function. The ultrasound of the legs was negative for any DVT. He will be admitted for additional IV fluids and further evaluation for the acute kidney injury. The hospitalist will determine any further evaluation for possible pulmonary embolus. Nuclear medicine is not available at this time for a VQ scan. Also the patient's lactic acid is slightly elevated 2.8 but I do not think this is from sepsis and negative hypotension and dehydration. I have spoken to the hospitalist and she did admit the patient to PCU Disposition: Admission Impression: Acute dyspnea with hypoxia Status post recent right lower quadrant ileostomy Hypoxia Acute renal injury status post recent ileostomy Dehydration Hypotension This note was generated with Warp 9ation software. It may contain incorrect words, spelling, and punctuation that were not noted in review of the chart prior to signing ED Disposition - Plan for ED Patient: Chief Complaint: Shortness of Breath Referrals: Micheal Tejeda MD [Primary Care Provider] - What to do if you have Problems For any increased pain, shortness of breath, bleeding, nausea or vomiting, chest pain, or any unexpected problems, contact your Primary Care Provider. Call [facility] ([phone]) or report to the closest Emergency Room. Call 911 if necessary. 11/04/17 1748 <Electronically signed by Adrien Sarah MD> Date Adrien Sarah MD Cosigner Signature (If Indicated): Date CC: Mackenzie Tejeda MD LUNG SCAN VENT/PERF Observed: 11/04/2017 Status: F Source: [place] 5:26 PM [facility] REPOSITORY [facility] Imaging Services [address] [place] [address] Lung Scan Vent/Perf MR#: [id number] Acct: [id number] Name: FAITH GHOSH Rep #: [id number] : 1960 M 57 From: Jose L Wright MD PCP: Mackenzie Tejeda MD Status: ADM IN Study: Lung Scan Vent/Perf Date of Exam: 11/04/17 Exam# [id number] Ordering Dr: Deneen Schuster MD CLINICAL: Male, 57 years old. Shortness of breath, recent surgery NUCLEAR VENTILATION/PERFUSION - LUNG TECHNIQUE: The patient was administered 5.7 mCi of Tc MAA followed by a perfusion lung scan. The patient was administered 48.6 mCi of Tc DTPA aerosol followed by a ventilation lung scan. Comparison made to prior chest radiograph dated 11/04/2017. COMPARISON STUDIES : NM - None. CR - Not available for review at this time. CT - Not available for review at this time. MR - Not available for review at this time. FINDINGS: The pulmonary perfusion study demonstrates uniform perfusion throughout both lung jenkins. There are no demonstrated segmental or subsegmental perfusion defects The ventilation study demonstrates uniform ventilation throughout both lung jenkins. There are no segmental or subsegmental ventilation abnormalities. NM/Lung Scan Vent/Perf IMPRESSION: Normal 99m Tc MAA pulmonary perfusion Tc DTPA aerosol ventilation imaging survey, according to revised PIOPED interpretive criteria. Electronically Signed: Jefry Wright MD at 11:57 EDT , Service support , CC: Deneen Schuster MD; Mackenzie Tejeda MD; Rubin Robles DO Facility Maintenance Technician: Signed LACTIC ACID Collected: 11/04/2017 Status: F Source: [place] 2:40 PM [facility] REPOSITORY Order Comment: Yes/No query for Sepsis Lactate Rule Y TYPE CODE TESTS RESULT OUT OF REFERENCE UNITS RANGE LAB L503.6005 0.4-2.0 mmol/L High LACTIC ACID 2.8 Result Comment: Critical Result(s) Called Vinny SANDERS at: 15:37:36 11/04/2017 by: HERMINIA TAMEZ Performed By: #### L503.6005 #### [facility] [address] [place], [address] Observed: 11/04/2017 Status: F Source: [place] CULTURE, BLOOD (WB) 2:40 PM [facility] REPOSITORY Has pt arrived? Y BC No growth in 5 days. Performed By: #### M200.1000 #### [facility] [address] [place], [address] CHEST 1 VIEW Observed: 11/04/2017 Status: F Source: [place] (PORTABLE) 2:32 PM [facility] REPOSITORY [facility] Imaging Services [address] [place] [address] Chest 1 View (Portable) MR#: [id number] Acct: [id number] Name: FAITH GHOSH J Rep #: [id number] : 1960 M 57 From: Jose L Wright MD PCP: Mackenzie Tejeda MD Status: PRE ER Study: Chest 1 View (Portable) Date of Exam: 11/04/17 Exam# [id number] Ordering Dr: Adrien Sarah MD STUDY: X-RAY CHEST REASON FOR EXAM: Male, 57 years old. Shortness of breath, difficulty breathing TECHNIQUE: Single AP portable view of the chest. COMPARISON: 09/16/2015 FINDINGS: EKG leads overlie the chest The lungs are clear and expanded. There is no demonstrated pleural abnormality. Normal size heart. Normal mediastinum and memo. Normal visualized pulmonary arteries. Normal visualized aortic arch and descending thoracic aorta. Normal visualized thoracic spine. Normal visualized ribs, clavicles, and shoulders. There is no demonstrated abnormality of the visualized soft tissue structures of the upper abdomen. RAD/Chest 1 View (Portable) IMPRESSION: Normal x-ray examination of the chest. Electronically Signed: Jefry Wright MD at 14:54 EDT , Service support , CC: Mackenzie Tejeda MD; Adrien Sarah MD Facility Maintenance Technician: Signed CBC W/DIFF, AUTOMATED Collected: 11/04/2017 Status: F Source: [place] 2:25 PM [facility] REPOSITORY TYPE CODE TESTS RESULT OUT OF RANGE REFERENCE UNITS LAB L100.1000 4.4-11.0 K/mm3 High WBC 14.3 LAB L100.1200 4.6-6.2 M/mm3 Normal RBC 6.16 LAB L100.1300 13.0-16.5 g/dl High alert HGB 18.4 Result Comment: CRITICAL VALUE VERIFIED. CALLED TO NARESH ANGEL 11/04/17 1448 Yeyo Tejeda. RESULTS READ BACK BY SAME. LAB L100.1400 40-54 % Normal HCT 50.7 LAB L100.1500 80-94 fL Normal MCV 82.3 LAB L100.1600 27.0-32.0 pg Normal MCH 29.9 LAB L100.1700 32-36 g/gl High MCHC 36.3 LAB L100.1810 11.6-14.6 % Normal RDW CV 13.4 LAB L100.1820 35.1-43.9 fl Normal RDW SD 40.2 LAB L100.1900 150-450 K/mm3 Normal PLT 390 LAB L100.2000 6.2-12.0 fl Normal MPV 11.1 LAB L100.2100 47-70 % High NEUT% 79.9 LAB L100.2200 19-41 % Low LY% 9.6 LAB L100.2300 0-10 % Normal MONO% 9.1 LAB L100.2400 0-5 % Normal EO% 0.3 LAB L100.2500 0-1 % Normal BASO% 0.3 LAB L100.2550 0.0-0.9 % Normal IM GRAN % 0.800 Result Comment: IG% - Immature Granulocytes (promyelocytes, myelocytes and metamyelocytes) > 1% indicates that a LEFT SHIFT is Present. LAB L100.2620 2.0-7.7 X10 3/uL High Absolute Neut 11.4 LAB L100.2720 0.83-4.51 X10 3/ul Normal Absolute Lymph 1.38 Performed By: #### L100.0100 #### [facility] [address] [facility]. [place], [place], [address] D-DIMER QUANTITATIVE Collected: 11/04/2017 Status: F Source: [place] (DVT/PE) 2:25 PM [facility] REPOSITORY TYPE CODE TESTS RESULT OUT OF RANGE REFERENCE UNITS LAB L300.8000 0.27-0.49 FEU/ug/m High alert D-DIMER 1.45 QUANT Result Comment: D-Dimer ELEVATED (>0.49): Additional studies and clinical assessments are indicated to conclude diagnosis of: Deep Vein Thrombosis (DVT) or Pulmonary Embolism (PE) CRITICAL VALUE VERIFIED. CALLED TO RUI ANGEL 11/04/17 Brittany Tejeda. RESULTS READ BACK BY SAME. Performed By: #### L300.8000 #### [facility] [address] [place], [place], [address] BASIC METABOLIC Collected: 11/04/2017 Status: F Source: [place] PROFILE (BMP) 2:25 PM [facility] REPOSITORY TYPE CODE TESTS RESULT OUT OF RANGE REFERENCE UNITS LAB L501.0100 74-106 mg/dL High GLU 202 Result Comment: Glucose result greater than or equal to 200 mg/dL suggests DIABETES MELLITUS per A.D.A. criteria. Please note revised GLUCOSE reference range effective 2017. LAB L501.1000 7-18 mg/dL High BUN 27 LAB L501.1100 0.70-1.30 mg/dL High CREAT,SERUM 3.49 Result Comment: The validity of the calculated GFR AND GFRAA in patients over 70 years has not been determined. Clinical correlation is essential. LAB L501.1110 >60 mL/min Low EST GFR 20 Result Comment: Non- GFR Calc LAB L501.1115 >60 mL/min Low EST GFR - AA 24 Result Comment: GFR Calc LAB L501.1255 ml/min Normal Estimated CRCL 27.03 LAB L501.1300 10-20 RATIO Low BUN/CRE 7.7 LAB L501.2200 8.5-10 mg/dL Normal .1 CA 10.0 LAB L501.5300 136-14 mmol/L Low 5 NA 135 LAB L501.5600 3.5-5. mmol/L Normal 1 K 4.6 LAB L501.5900 98-107 mmol/L Normal CL 101 LAB L501.6100 21.0-3 mmol/L Low 2.0 CO2 18.0 LAB L501.6200 5-15 High GAP 16 Performed By: #### L500.2500, L501.4010 #### [facility] [address] [place], [address] TROPONIN-I Collected: 11/04/2017 Status: F Source: [place] 2:25 PM [facility] REPOSITORY TYPE CODE TESTS RESULT OUT OF RANGE REFERENCE UNITS LAB L501.4010 <0.045 ng/mL Normal < 0.015 TROPONIN-I Result Comment: TROPONIN-I EXPECTED VALUES <0.045 Negative 0.045 - 0.590 Consistent with Cardiac Damage > OR = 0.600 Critical Value Not every elevated troponin is indicative of CT. These values should be used with clinical judgement in examining the patient's clinical picture for diagnosis. To establish a diagnosis of CT versus myocardial injury, there must be a demonstrated rise and/or fall in the troponin values, in addition to ischemic symptoms, EKG changes, new regional wall motion abnormality, and/or angiographical evidence. PLEASE NOTE: REFERENCE RANGES EDITED 17 Performed By: #### L500.2500, L501.4010 #### [facility] [address] [place], [place], [address] Observed: 11/04/2017 Status: F Source: [place] CULTURE, BLOOD (WB) 2:23 PM [facility] REPOSITORY Has pt arrived? Y BC No growth in 5 days. Performed By: #### M200.1000 #### [facility] [address] [place], [place], [address] BEDSIDE GLUCOSE Collected: 11/04/2017 Status: F Source: [place] 2:22 PM [facility] REPOSITORY TYPE CODE TESTS RESULT OUT OF REFERENCE UNITS RANGE LAB L501.080 70-110 mg/dL High BEDSIDE GLU 206 Result Comment: MANAGEMENT OF PATIENT CARE PER NURSING PROTOCOL Performed By: #### L501.080 #### [facility] Point of Care [address] [place], [place] [address] CASE MANAGEM Observed: 11/02/2017 Status: COMPLETED Source: [place] 6:23 PM [facility] REPOSITORY HNO ID: [id number] Author: Litzy OrtegaRn) STANLEY Cohen Service: Care Management Author Type: Registered Nurse Type: Care Mgt Progress Note Filed: 11/03/2017 1:56 PM Note Text: CARE MANAGEMENT DISCHARGE NOTE SERVICE DATE: 11/03/2017 SERVICE TIME: 1:51 PM DISCHARGE DATE: 11/02/2017 TIME: 4:00PM LOS: 8 days Admission Date: 10/25/2017 DISCHARGE ARRANGEMENT (list agency and phone number) Home Care - Nursing Provider: [facility] CAREGIVER ASSESSMENT: Caregiver is ready, willing and able to meet the patient's needs as recommended by the inter-professional team? Yes Patient's transition needs and plan for meeting these needs: Home with home care nurse Does the patient have an acute stroke diagnosis, or has the patient had a stroke during this admission? No HANDOFF COMMUNICATION: Primary Care Physician: Mackenzie Tejeda MD [facility] TRANSPORTATION ARRANGEMENTS: Car Family ADDITIONAL CONTACT RESOURCES: n/a Reviewed discharge instructions, patient discharged home with skilled home care. [facility] agency to provide home care services. Start of care 11/04/17. Agency contact information given to the patient. Discharge instructions by nursing staff. Family to provide transport. SIGNATURE: Litzy Cohen RN PATIENT NAME: Faith Ghosh DATE: November 03, 2017 TIME: 1:50 PM PAGER/CONTACT #: [phone] CNDS Observed: 11/02/2017 Status: COMPLETED Source: [place] 6:23 PM [facility] RE[facility] O ID: [id number] Author: Yecenia Johnson (Pa) Service: Colorectal Author Type: Physician Smasher Hand Type: Discharge Summaries Filed: 11/03/2017 2:33 PM Note Text: DISCHARGE SUMMARY PATIENT NAME: Faith Ghosh ADMISSION DATE: 10/25/2017 DISCHARGE DATE: 11/02/2017 ATTENDING PHYSICIAN: Anne Fowler REASON FOR HOSPITALIZATION: This is a 57-year-old male patient with long-standing constipation. Evaluation demonstrated this to be both slow transit and related to outlet dysfunction. He presented this admission for surgical management. ? DIAGNOSIS: Active Problems: Diabetes ([facility]) Hypertension Hyperlipidemia Paranoid schizophrenia ([facility]) COPD (chronic obstructive pulmonary disease) ([facility]) Outlet dysfunction constipation Pelvic floor dysfunction Ileostomy in place ([facility]) Encounter for ostomy care education Postoperative pain Nicotine use disorder, F17.2 Resolved Problems: Urinary retention Moreno catheter in place OPERATIONS DURING HOSPITALIZATION: Laparoscopic ileostomy PROCEDURES DURING HOSPITALIZATION: No procedures performed HOSPITAL COURSE: Mr. Ghosh came to the hospital to have surgery with Dr. Fowler. His surgery was uneventful and afterwards, he was transferred to a regular nursing floor. His pain was controlled with oral and IV medication and his intake and output were closely monitored. His diet was advanced as tolerated. He did not tolerated this well initially and a nasogastric tube was placed. When the output from the tube became low, it was removed. He intermittently experienced urinary retention during this admission requiring several straight catheterizations and eventual moreno cathter placement. At time of discharge patient had been independently voiding with appropriate post-void residuals for >24 hours. DVT prophylaxis was managed by Lovenox 40mg daily and intermittent compression stockings. His electrolytes were monitored with daily labs and replaced as needed. Once his pain was controlled with oral medication, he was tolerating a GI soft diet, and his stoma was functioning appropriately, he was deemed fit for discharge. Follow-up with Dr. Fowler in the Clinic as scheduled. LABS AND PROCEDURES PENDING AT DISCHARGE: No pending results. CONSULTING TEAMS DURING HOSPITALIZATION: None PATIENT CONDITION AT DISCHARGE: Stable DISCHARGE DISPOSITION: Home with Home Health Care DISCHARGE MEDICATION: Discharge Medication List as of 11/03/2017 1:34 PM START taking these medications acetaminophen (TYLENOL) 500 mg tablet Take 2 tablets by mouth every 6 hours. Med Update ibuprofen (MOTRIN) 800 mg tablet Take 1 tablet by mouth every 8 hours. Med Update CONTINUE these medications which have NOT CHANGED NIACIN ORAL Take 1 capsule by mouth once daily. Historical Med, Long-term psyllium husk (METAMUCIL ORAL) Take 1 tablet by mouth once daily. Historical Med atenolol (TENORMIN) 25 mg tablet Take 1 tablet by mouth once daily. Med Update, Long-term Maximum Refills Reached albuterol HFA (PROVENTIL HFA) 90 mcg/actuation inhaler Inhale 1-2 Puffs as instructed four times daily as needed for Wheezing/Shortness of Breath. Med Update, Long-term pantoprazole sodium (PANTOPRAZOLE ORAL) Take 40 mg by mouth once daily. Historical Med linaclotide (LINZESS) 290 mcg cap Take 1 capsule by mouth once daily. Historical Med CYANOCOBALAMIN, VITAMIN B-12, (B-12 DOTS ORAL) Take 1 tablet by mouth once daily. Historical Med Dx: 1. Outlet dysfunction constipation Ascorbic Acid (VITAMIN C) 100 mg tablet Take 100 mg by mouth once daily. Historical Med Dx: 1. Outlet dysfunction constipation cloZAPine (CLOZARIL) 100 mg tablet Take 100 mg by mouth once daily. Two tablets daily Historical Med hydroCHLOROthiazide (HYDRODIURIL, ESIDRIX) 50 mg tablet Take 50 mg by mouth once daily. Historical Med benztropine (COGENTIN) 1 mg tablet Take 1 mg by mouth twice daily. Historical Med montelukast (SINGULAIR) 10 mg tablet TAKE 1 TABLET BY MOUTH DAILY AT BEDTIME. Normal, Disp-90 tablet, R-0 Maximum Refills Reached Magnesium Oxide 500 mg tab Take 500 mg by mouth once daily. Historical Med metFORMIN (GLUCOPHAGE) 1,000 mg tablet Take 1,000 mg by mouth daily with breakfast. Historical Med JANUMET XR 50-1,000 mg TM24 TAKE 1 TABLET BY MOUTH TWICE A DAY Normal, Disp-168 tablet, R-0 lovastatin (MEVACOR) 20 mg tablet Take 1 tablet by mouth daily at bedtime. Normal, Disp-30 tablet, R-12 omega-3 acid ethyl esters (LOVAZA) 1 gram capsule Take 2 capsules by mouth twice daily. Normal, Disp-120 capsule, R-11 Blood-Glucose Meter (ONETOUCH ULTRA2) monitoring kit 1 Each as needed. One Touch Meter Kit Diagnosis: Type 2 DM - Controlled E11.9 Test twice a day as directed, NO insulin Normal, Disp-1 Each, R-0 Dx: 1. Type 2 diabetes mellitus without complication (HCC) blood sugar diagnostic (ONETOUCH ULTRA TEST) test strip Test blood sugar(s) 2 times daily. Dx: Type 2 DM - Controlled E11.9 Insulin: No Normal, Disp-50 Strip, R-11 Dx: 1. Type 2 diabetes mellitus without complication (HCC) lancets (FREESTYLE LANCETS) 28 gauge misc Test once daily. Dx: E11.9 - Insulin - No Normal, Disp-50 Each, R-11 Maximum Refills Reached lisinopril 2.5 mg tablet Take 1 tablet by mouth once daily. Normal, Disp-30 tablet, R-11 perphenazine 8 mg tablet Take 1 tablet by mouth four times daily. Historical Med Dx: 1. Paranoid schizophrenia (HCC) LORazepam (ATIVAN) 2 mg tab Take 1 tablet by mouth twice daily. Historical Med Dx: 1. Paranoid schizophrenia (HCC) aspirin, enteric coated (ADULT LOW DOSE ASPIRIN) 81 mg EC tablet Take 1 tablet by mouth once daily. Historical Med, R-0 Dx: 1. Chronic obstructive pulmonary disease with acute exacerbation (HCC) Future Appointments Date Time Provider Department Center 12/16/2017 11:40 AM Anne MELENDEZ 12/16/2017 1:00 PM Stoma Therapy [facility] TIME OF CARE: Discharge Management: I personally spent greater than 30 minutes involved in the discharge management of this patient. SIGNATURE: Yecenia Johnson PA-C PATIENT NAME: Faith Ghosh DATE: November 03, 2017 TIME: 2:26 PM PAGER/CONTACT #: [phone] [facility] Observed: 11/02/2017 Status: COMPLETED Source: [place] 6:14 PM [facility] HNO ID: [id number] Author: Verona OrteagRn) STANLEY Leal Service: Wound/Ostomy Author Type: Registered Nurse Type: Allied Health Filed: 11/02/2017 6:16 PM Note Text: ET/WOC NURSING ET OUTCOME: A very detailed lesson #1 and lesson #2 were both completed. TOPIC: OSTOMY INSTRUCTION, WOUND CARE INSTRUCTION, DEHYDRATION PREVENTION and OSTOMY OUTPUT RECORDING CHART READINESS TO LEARN COGNITIVE ABILITY: Alert and Oriented MOTIVATION TO LEARN: Eager and Interested FAMILY SUPPORT: High - Very involved in patient care INSTRUCTION PROVIDED TO: Patient and Mother PATIENT LEARNS BEST BY: Multiple Methods FACTORS AFFECTING LEARNING: None PHYSICAL LIMITATIONS AFFECTING LEARNING: None LEARNING RESPONSE DIAGNOSIS: Pelvic floor dysfunction and Outlet dysfunction constipation. PROCEDURE / SURGERY: Loop ileostomy EDUCATION TOPIC/ TEACHING POINTS: Ostomy Care Stoma appearance and function, Purpose of the pouching system, Postoperative ostomy care per ET/WOC Nurse, Postoperative self ostomy care instruction, Discharge equipment ordering and support options, Diet, Fluid Intake, Work and Clothing Adjustment and Wound Care METHOD OF INSTRUCTION: Verbal instruction Demonstration-Hands on Learning PATIENT / FAMILY RESPONSE: Performs skill independently: Correct procedure for emptying ostomy pouch, Correct procedure for changing ostomy pouch and Correct procedure for wound care and Verbalizing understanding of: Correct procedure for emptying ostomy pouch, Correct procedure for changing ostomy pouch, Correct procedure for wound care, Methods of dehydration prevention and Use of ostomy output recording chart FOLLOW-UP PLAN: Patient instructed to call with any further issues SUPPLEMENTAL MATERIAL: Pouch change Instruction Sheet, Eating Right and Avoiding Dehydration after Bowel Surgery Handout and [facility] 24 hour Ostomy Output Recording Chart REFERRAL (RECOMMENDATION): Home Health Agency TIME INCREMENT: 2 hours Electronically Signed By Verona Leal RN ET/WOC Nursing [facility] Observed: 11/02/2017 Status: COMPLETED Source: [place] 6:06 PM [facility] HNO ID: [id number] Author: Verona OrtegaRn) STANLEY Leal Service: Wound/Ostomy Author Type: Registered Nurse Type: Allied Health Filed: 11/02/2017 6:17 PM Note Text: ET/WOC NURSING TOPIC: POST-OPERATIVE ASSESSMENT AND CARE: GI Stoma PATIENT NAME: Faith Ghosh DATE: November 02, 2017 TIME: 6:06 PM ET Care Outcome: A very detailed lesson #1, lesson #2, stoma moreno removal, and final preparations for D/C were all completed with both the patient and his mother, Jessica. The patient's mother was able to change the patient's pouching system independently with some minimal verbal assistance. All questions and concerns were answered and addressed. The patient is ready for D/C per WOC standpoint. ET's Next Scheduled Visit: Wednesday: 11/05/17: Scheduled pouch change. The following were completed in preparation for D/C. 1. Instruction sheet. 2. Prescription sheet. 3. Diet sheet. 4. Output documentation sheet. 5. WOC pamphlet. 6. Supplier companies packet. 7. Two-week supply. Stoma type: Loop ileostomy Diameter: 1 3/8 rounded. Location: RUQ Protrusion: Budded Mucosal condition and color: Red and moist and edematous. There is some thin green slough located from 7-10 o'clock on the stoma. Shaista: No Mucocutaneous Junction: Intact Output: Yes: Liquid green effluent. Peristomal Skin: Erythema and Denuded Location of Skin Impairment: Circumferentially around the stoma. Treatment of Skin Impairment: Stomahesive powder was applied. ET Peristomal Contour: Rounded Supportive Tissue: Semisoft Pouching System: Removed: Red Coloplast Sensura Imchael Flex, cut to fit, flat flange; Coloplast Brava 4.2mm moldable ring; and attached Red Coloplast Sensura [place] Flex Maxi drainable pouch. Recommendations: Skin: Apply Stomahesive powder to any irritated, erythema, or denuded peristomal skin with each pouching change until healed. Then can be applied as needed. Apply an even coating and then gently dust off the extra powder. Pouching System: Applied: Red Coloplast Sensura [place] Flex, cut to fit, convex flange #[id number]; Coloplast Brava 4.2mm moldable ring; attached Red Coloplast Sensura Michael Flex Maxi drainable pouch; and Coloplast Elastic Barrier Strips to picture frame. Wear Time: Goal is 3-4 days. Incision: Abdominal Laparoscopic Incision Degree of approximation: 100% Approximating devices: Surgical Glue Drainage: None. Method of Management: CAR CHANGER Drain: No Time Increment: 2 hours Comments: Supplies are at the bedside. Education: Yes: See Patient Education Note Supplies Given: Yes: 4 convex flanges, 4 pouches, 4 rings, and 10 adhesive removers. Verona CLARKE, RN, WOC Nursing WO Nursing - Please place consult via [employer]. Thank you. (M-F: [phone]; Weekends AND Holidays: [phone]). ? ALLIED HEALTH Observed: 11/02/2017 Status: COMPLETED Source: [place] 4:33 PM [facility] REPOSITORY O ID: [id number] Author: Svetlana (Rn) STANLEY Almendarez Service: Wound/Ostomy Author Type: Registered Nurse Type: Allied Health Filed: 11/02/2017 5:18 PM Note Text: [place] [address] Loop Ileostomy How to Change Your Disposable, Two-Piece Pouch With Cut-to-Fit Barrier Flange (Post-Operative Technique) 1. Gather the following supplies: ? Washcloths or paper towels e.g. [place], Bounty, Milad, or Brawny ? Non-oily soap e.g. Ivory and Dial ? Scissors with at least one blunt tip ? Plastic bag or newspaper for waste ? New pouch: Red Coloplast Sensura Michael Flex Maxi drainable pouch. ? Skin barrier flange: Red Coloplast Sensura Michael Flex, cut to fit, Convex flange. ? Accessory products: Adhesive Remover, Stoma Powder, Barrier Ring and Other: Coloplast Elastic Barrier Strips. 2. Prepare the new pouch: ? Measure stoma size 1-2 times per week for the first 6-8 weeks after surgery date to ensure proper sizing. The stoma size will need to be re-measured if the patient gains or losses more than 5-10 lbs. ? Trace the pattern (sized to fit within 1/8 of stoma) on the cover paper of the skin barrier flange. ? Cut out the skin barrier flange. ? Center the pouch opening over the skin barrier flange and snap firmly together. ? Close the end of the pouch. ? Remove the skin barrier cover papers from the adhesive surface of the flange. ? Stretch out the moldable ring and place around the aperture on the back of the flange. ? Set the prepared pouch assembly aside, sticky side up. 3. Remove the worn pouch: ? Holding the pouch upright, open the end of the pouch. ? Empty the waste from the pouch into the toilet. ? Remove the worn pouch by: ? Applying light pressure on the skin with one hand. ? Gently pulling the pouch from the skin with the other hand. ? Use adhesive remover as needed ? Wrap the worn pouch in newspaper or place in a plastic bag and discard. 4. Cleanse the skin around the stoma: ? Wash the area around the stoma with non-oily soap and warm water ? Shave area as needed. ? Rinse the area thoroughly with warm water. ? Pat the skin dry with a washcloth or paper towel. ? Use skin barrier powder to sore skin as needed. [place] off excess powder. 5. Apply the prepared pouch: ? Center the pouch opening over the stoma and press into place. ? Smooth the sticky surface of the skin barrier flange onto the skin. ? Hold the pouch firmly in place for a few moments. ? Apply Coloplast Elastic Barrier Strips around the outside border of the flange as needed. ? Empty the pouch when it gets 1/3-1/2 full. ? The pouching system will be changed every 3-4 days or twice a week. ? The pouching system should be changed first thing in the morning before the patient has anything to eat or drink. ? The pouching system is water proof. ? The fabric on the back of the pouch should be dried if it becomes wet. ? May use a hairdryer on the cool setting. If your pouch leaks or the skin around your stoma gets sore, call your ET/WOC Nurse at or , ext. [phone]. ALLIED HEALTH Observed: 11/02/2017 Status: COMPLETED Source: [place] 4:30 PM [facility] REPOSITORY HNO ID: [id number] Author: Svetlana Ovalle) STANLEY Almendarez Service: Wound/Ostomy Author Type: Registered Nurse Type: Allied Health Filed: 11/02/2017 5:18 PM Note Text: [place] [address] OSTOMY SUPPLY ORDER FORM Patient: Faith Ghosh Patient Address: [address] [place] [address] [place] [address] Gender: male Date of : 1960 Type of Stoma: Loop Ileostomy Diagnosis: Pelvic floor dysfunction and Outlet dysfunction constipation Item and Description Qty 30 Day Use Adhesive Removers: ConvaTec Sensi-Care No Sting #[id number] Coloplast MICHAEL Flex Pouches: #[id number] RED, MICHAEL Flex Transparent Drainable Pouch with Filter Coloplast MICHAEL Flex Wafers: #[id number] RED, MICHAEL Flex Convex Light Wafer, CTF 08/31--1 01/09 (15-40mm) Misc Accessory: Coloplast Elastic Barrier Strips # [id number] Moldable Ring: Coloplast Brava 4.2mm Moldable # [id number] Powder: Convatec Stomahesive # [id number] 30/Box 10/Box 5/Box 20/Box 10/Box 1 Bottle 1 Box 1 Box 2 Boxes 1 Box 1 Box As Needed Refills: 11 Attending Physician: Dr. Fowler For immediate authorization, please contact the physician?s office. [facility] Nurse: Verona Leal [facility] SIGNATURE: Verona Leal RN, BSN PATIENT NAME: Faith Ghosh DATE: November 02, 2017 TIME: 4:31 PM CONTACT #: [phone] NUTRITION Observed: 11/02/2017 Status: COMPLETED Source: [place] 1:12 PM [facility] REPOSITORY HNO ID: [id number] Author: Malou OrtegaRescale) Bernard Service: Nutrition Therapy Author Type: Assembly Inspector Helper Type: Nutrition Filed: 11/02/2017 1:14 PM Note Text: NUTRITION THERAPY FOLLOW-UP NOTE SERVICE DATE: 11/02/2017 SERVICE TIME: 8:00 am Anthropometrics: Height: 185.4 cm (6' 0.99) Current Weight: Weight: 100.2 kg (221 lb) Body mass index is 29.16 kg/m?. Loss of lean body mass/visual muscle wasting: no Admitting Diagnosis: Pelvic floor dysfunction [M62.89] Outlet dysfunction constipation [K59.02] Present Diet Order: Clear Liquid Is the patient having any pain that is interfering with oral/enteral intake? No Allergies: ALLERGIES No Known Allergies Reason for Visit: Nutrition screen: LOS > 6 days Patient concerns/Issues: The patient is currently on Clear Liquids, was consuming between 25-100% of his meals, according to nursing BECKY reports in [facility]. The patient reports; he is tolerating the liquids well, be happy to have food again. and denies any issues with; swallowing, nausea, or emesis at this time. Nutrition Therapy will continue to monitor. Nursing Admission Assessment Malnutrition Score Tool: 0 Plan of Care: Recommendation No problems noted at this time. Will screen again within 7 days Supplement: Impact Recovery 3 x daily and G-2 3 x daily Discharge Plan: Home on GI soft diet MNT Billing Type: Routine Care/15 min 1 unit SIGNATURE: Malou Wagner DTR PATIENT NAME: Faith Ghosh DATE: November 02, 2017 TIME: 1:12 PM PAGER: [phone] CASE MANAGEM Observed: 11/02/2017 Status: COMPLETED Source: [place] 12:16 PM [facility] REPOSITORY HNO ID: [id number] Author: Beverly Carreon (Asst) Service: Care Management Author Type: Resource Center Smasher Hand Type: Care Mgt Progress Note Filed: 11/02/2017 12:17 PM Note Text: CARE MANAGEMENT PROGRESS NOTE SERVICE DATE: 11/02/2017 SERVICE TIME: 11:46 LOS: 8 days IM letter given to patient on 11/02/17. SIGNATURE: Asst Tiffanie PATIENT NAME: Faith Ghosh DATE: November 02, 2017 TIME: 12:16 PM PAGER/CONTACT #: [phone] ALLIED HEALTH Observed: 11/02/2017 Status: COMPLETED Source: [place] 10:36 AM [facility] REPOSITORY HNO ID: [id number] Author: Trang Plummer Student Service: (none) Author Type: (none) Type: Allied Health Filed: 11/02/2017 10:36 AM Note Text: SPIRITUALCARE Spiritual Care Visit- Brief Note Name: Faith Ghosh Date: November 02, 2017 Notes: Pt was sleeping. Hospice Rn Signature: Trang Plummer Student To contact the Spiritual Care Department: Please call [phone] or Page the On-Call Hospice Rn at pager [phone] Thank you for the opportunity to be of service. This is an electronically created document. IF PRINTED, PLEASE DO NOT REMOVE FROM THE CHART OR MODIFY PRINTED COPY. PROGRESS Observed: 11/02/2017 Status: COMPLETED Source: [place] 8:39 AM [facility] REPOSITORY HNO ID: [id number] Author: Anne Fowler Service: Colorectal Author Type: Physician Type: Progress Notes Filed: 11/02/2017 12:09 PM Note Text: COLORECTAL SURGERY POSTOP PROGRESS NOTE SERVICE DATE: 11/02/2017 SERVICE TIME: 0800 POD #8 Subjective INTERVAL HPI and PERTINENT ROS: Denies pain, no n/v/f/c Tolerated clears Stoma function appropriate MEDICATIONS: Current hospital medications: nicotine 21 mg/24 hr 1 Patch (NICODERM) 1 Patch TRANSDERMAL DAILY nicotine -- REMOVE patch OTHER DAILY nicotine - verify patch OTHER q 8 H dextrose 5% in NaCl 0.45% with 20 mEq/L KCl iv infusion 100 mL/hr INTRAVENOUS CONTINUOUS tamsulosin ER 0.4 mg cap(s) (FLOMAX) 0.4 mg ORAL AT BEDTIME LORazepam 2 mg tab(s) (ATIVAN) 2 mg ORAL BID [MAR Hold due to Transfer] lidocaine 10 mg/mL (1 %) 1-2 mg injection (XYLOCAINE) 0.1-0.2 mL INTRADERMAL PRN potassium chloride ER 20-40 mEq tab(s) (K-DUR, KLOR-CON) 20- 40 mEq ORAL PRN potassium chloride iv piggyback 20 mEq/100 mL 20 mEq INTRAVENOUS PRN magnesium sulfate iv piggyback 2 g in D5W 50 mL 2 g INTRAVENOUS PRN(NO DISPENSE) sodium phosphate 45 mmol in NaCl 0.9% 250 mL 45 mmol INTRAVENOUS PRN(NO DISPENSE) ondansetron (PF) 4 mg injection (ZOFRAN) 4 mg INTRAVENOUS q 6 H PRN acetaminophen 1,000 mg tab(s) (TYLENOL) 1,000 mg ORAL q 6 H ibuprofen 800 mg tab(s) (MOTRIN) 800 mg ORAL q 8 H oxyCODONE IR 5-10 mg tab(s) (ROXICODONE) 5-10 mg ORAL q 4 H PRN HYDROmorphone 0.2 mg injection (DILAUDID) 0.2 mg INTRAVENOUS q 3 H PRN enoxaparin 40 mg injection (LOVENOX) 40 mg SUBCUTANEOUS DAILY lovastatin 20 mg tab(s) (MEVACOR) 20 mg ORAL AT BEDTIME lisinopril 2.5 mg tab(s) 2.5 mg ORAL DAILY perphenazine 8 mg tab(s) 8 mg ORAL QID albuterol HFA 90 mcg/actuation 1-2 Puff (PROVENTIL HFA, VENTOLIN HFA) 1-2 Puff INHALATION QID PRN metoprolol tartrate (short acting) 25 mg tab(s) (LOPRESSOR) 25 mg ORAL q 12 H aspirin, enteric coated 81 mg tab(s) (ASPIRIN, ENTERIC COATED) 81 mg ORAL DAILY pantoprazole DR 40 mg tab(s) (PROTONIX) 40 mg ORAL DAILY (6 AM) dextrose 40 % 15 g 15 g ORAL PRN glucagon 1 mg injection (GLUCAGEN) 1 mg INTRAMUSCULAR PRN dextrose 50% in water 25 mL syringe 12.5 g INTRAVENOUS PRN insulin lispro injection (rapid acting) (HumaLOG) SUBCUTANEOUS w MEALS insulin lispro injection (rapid acting) (HumaLOG) SUBCUTANEOUS AT BEDTIME cloZAPine 100 mg tab(s) (CLOZARIL) 100 mg ORAL BID (0600/2100) Objective PHYSICAL EXAM: BP 124/83 Pulse 72 Temp 36.4 ?C (97.6 ?F) (Oral) Resp 16 Ht 185.4 cm (6' 0.99) Wt 100.2 kg (221 lb) SpO2 96% BMI 29.16 kg/m? Intake/Output Summary (Last 24 hours) at 11/02/17 0839 Last data filed at 11/02/17 0724 Gross per 24 hour Intake 3870 ml Output 3400 ml Net 470 ml Abdomen soft, non-tender, non-distended and stoma is pink, +function LABS: CBC, Coags, BMP, Mg, Phos Recent Labs 11/02/17 0545 11/01/17 0429 10/31/17 0519 WBC 5.48 7.22 8.50 HB 13.4 14.3 14.2 HCT 38.8* 42.8 41.9 PLT 189 186 197 NA -- 139 141 K -- 4.0 3.2* CHLOR -- 104 96* CO2 -- 23 33* BUN -- 10 20 CREAT -- 0.90 1.37* GLUC -- 112* 139* CA -- 8.8 9.2 MG -- 2.0 1.8 P -- 1.8* 3.7 DATA: Diagnostic tests reviewed for today's visit: Most recent labs Assessment/Plan POSTOP PLANS: Routine postop care: Encourage ambulation, Incentive Spirometry Advance diet to GIS as tolerated Possible discharge today -will need stoma lesson with mother prior to DC Moreno: Continued Need for Moreno Catherization Due to Urinary output monitoring for critically ill patients Medication and Non-Pharmacologic VTE Prophylaxis/Anticoagulants Anticoagulant AND Antiplatelet Medications Start Dose Route Frequency Ordered Stop 10/26/17 0900 enoxaparin 40 mg injection (LOVENOX) (Surgical Moderate Risk ) 40 mg SUBCUTANEOUS DAILY 10/25/17 1453 -- 10/26/17 0900 aspirin, enteric coated 81 mg tab(s) (ASPIRIN, ENTERIC COATED) 81 mg ORAL DAILY 10/25/17 1219 -- 10/25/17 1500 pneumatic compression stockings [place] 10/25/17 1500 activity - mobilize [place] ([place] 10/25/17 0830 intermittent pneumatic compression VTE Prophylaxis: VTE prophylaxis appropriate Reason for Continuing Antibiotics: There is no need to continue antibiotics *A review of daily goals, interventions, and plan of care with the multidisciplinary team and patient has been conducted. The patient?s concerns have been addressed and he/she agrees to proceed with today?s plan of care. SIGNATURE: Yecenia Johnson PA-C PATIENT NAME: Faith Ghosh DATE: November 02, 2017 TIME: 8:40 AM PAGER/CONTACT #: [phone] Fellow's history reviewed. Patient interviewed and examined. I have personally examined the patient and repeated the munoz components of the exam/history. The assessment and plan were formulated and discussed with the resident/fellow. See fellow's note for further details. Feeling better today. Tolerating diet. No nausea or vomiting. Ostomy functioning. Able to void once fully removed. On exam: Abdomen soft, less distended Ostomy pink, thick output Plan: Soft diet Home later today if still well Anne Fowler MD CBC Collected: 11/02/2017 Status: F Source: [place] 5:45 AM [facility] REPOSITORY TYPE CODE TESTS RESULT OUT OF REFERENCE UNITS RANGE LAB WBC 3.70-11.00 k/uL WBC 5.48 LAB RBC 4.20-6.00 m/uL RBC 4.51 LAB HGB 13.0-17.0 g/dL Hemoglobin 13.4 LAB HCT 39.0-51.0 % Low Hematocrit 38.8 LAB MCV 80.0-100.0 fL MCV 86.0 LAB MCH 26.0-34.0 pG MCH 29.7 LAB MCHC 30.5-36.0 g/dL MCHC 34.5 LAB RDWCV 11.5-15.0 % RDW-CV 12.6 LAB PLTCT 150-400 k/uL Platelet Count 189 LAB MPV 9.0-12.7 fL MPV 10.8 LAB ABSNUC <0.01 k/uL Absolute nRBC <0.01 Performed By: #### CBC, BMP, MG1, PHOS #### [facility] [address] [place] [id number] BASIC METABOLIC PANL Collected: 11/02/2017 Status: F Source: [place] 5:45 AM [facility] REPOSITORY TYPE CODE TESTS RESULT OUT OF REFERENCE UNITS RANGE LAB GLU 74-99 mg/dL High Glucose 133 Result Comment: The [place] [employer] (ADA) provides guidance for cutoff values for fasting glucose and random glucose. The ADA defines fasting as no caloric intake for at least 8 hours. Fas ting plasma glucose results between 100 to 125 mg/dL indicate increased risk for diabetes (prediabetes). Fasting plasma glucose results greater than or equal to 126 mg/dL meet the criteria for diagnosis of diabetes. In the absence of unequivocal hyperglycemia, results should be confirmed by repeat testing. In a patient with classic symptoms of hyperglycemia or hyperglycemic crisis, random plasma glucose results greater than or equal to 200 mg/dL meet the criteria for diagnosis of diabetes. Reference: Standards of Medical Care in Diabetes 2016, [place] [employer]. Diabetes Care. 2016.39(Suppl 1). LAB BUN 9-24 mg/dL BUN 9 LAB CRET 0.73-1.22 mg/dL Creatinine 0.75 LAB NA 136-144 mmol/L Sodium 138 LAB K 3.7-5.1 mmol/L Potassium 4.3 LAB CL 97-105 mmol/L Chloride High 106 LAB CO2 22-30 mmol/L Low CO2 20 LAB AGAP 9-18 mmol/L Anion Gap 12 LAB CA 8.5-10.2 mg/dL Calcium, Total 8.5 LAB GFRAA eGFR- Amer. >60 LAB GFRNAA . eGFR-All Other Races >60 Result Comment: eGFR (Estimated GFR) Units of measure: mL/min/1.73 meters squared eGFR is derived from the reexpressed MDRD Study equation using the following parameters: serum creatinine, age, gender and race. The creatinine assay has been calibrated to be traceable to IDMS. An eGFR <60 mL/min/1.73m2 for >3 months is consistent with chronic kidney disease. Refer to KDOQI guidelines for clinical interpretation. In patients with unstable renal function, e.g. those with acute kidney injury, the eGFR may not accurately reflect actual GFR. Performed By: #### CBC, BMP, MG1, PHOS #### [facility] [address] [place] [address] MAGNESIUM Collected: 11/02/2017 Status: F Source: [place] 5:45 AM [facility] REPOSITORY TYPE CODE TESTS RESULT OUT OF REFERENCE UNITS RANGE LAB MG 1.7-2.3 mg/dL Magnesium 2.0 Performed By: #### CBC, BMP, MG1, PHOS #### [facility] [address] [place] [id number] PHOSPHORUS Collected: 11/02/2017 Status: F Source: [place] 5:45 AM [facility] REPOSIT[facility] TYPE CODE TESTS RESULT OUT OF REFERENCE UNITS RANGE LAB PHOS 2.7-4.8 mg/dL Low Phosphorus 2.0 Performed By: #### CBC, BMP, MG1, PHOS #### [facility] [address] [place] [id number] CASE MANAGEM Observed: 11/01/2017 Status: COMPLETED Source: [place] 2:58 PM [facility] REPOSITORY HNO ID: [id number] Author: Litzy OrtegaRn) STANLEY Cohen Service: Care Management Author Type: Registered Nurse Type: Care Mgt Progress Note Filed: 11/01/2017 3:02 PM Note Text: CARE MANAGEMENT PROGRESS NOTE SERVICE DATE: 11/01/2017 SERVICE TIME: 2:58 PM LOS: 7 days Needs Prior to Discharge: Other: See Comment (Medical clearance) Per morning rounds report, to advance diet to clears, mother to have stoma lessons before discharge. Anticipated discharge home tomorrow with skilled home care for ostomy care. When medically cleared [facility] home care F: [phone] to provide home care services. Fax the discharge instructions and other information faxed [phone] SIGNATURE: Litzy Cohen RN PATIENT NAME: Faith Ghosh DATE: November 01, 2017 TIME: 2:58 PM PAGER/CONTACT #: [phone] PROGRESS Observed: 11/01/2017 Status: COMPLETED Source: [place] 11:53 AM [facility] REPOSITORY HNO ID: [id number] Author: Anne Fowler Service: Colorectal Author Type: Physician Type: Progress Notes Filed: 11/01/2017 12:39 PM Note Text: COLORECTAL SURGERY POSTOP PROGRESS NOTE SERVICE DATE: 10/31/2017 SERVICE TIME: 0800 POD #7 Subjective INTERVAL HPI and PERTINENT ROS: Denies pain, no n/v/f/c Patient removed NG of his own volition this am -1L output over past 24 hours MEDICATIONS: Current hospital medications: nicotine 21 mg/24 hr 1 Patch (NICODERM) 1 Patch TRANSDERMAL DAILY nicotine -- REMOVE patch OTHER DAILY nicotine - verify patch OTHER q 8 H dextrose 5% in NaCl 0.45% with 20 mEq/L KCl iv infusion 100 mL/hr INTRAVENOUS CONTINUOUS tamsulosin ER 0.4 mg cap(s) (FLOMAX) 0.4 mg ORAL AT BEDTIME LORazepam 2 mg tab(s) (ATIVAN) 2 mg ORAL BID [MAR Hold due to Transfer] lidocaine 10 mg/mL (1 %) 1-2 mg injection (XYLOCAINE) 0.1-0.2 mL INTRADERMAL PRN potassium chloride ER 20-40 mEq tab(s) (K-DUR, KLOR-CON) 20- 40 mEq ORAL PRN potassium chloride iv piggyback 20 mEq/100 mL 20 mEq INTRAVENOUS PRN magnesium sulfate iv piggyback 2 g in D5W 50 mL 2 g INTRAVENOUS PRN(NO DISPENSE) sodium phosphate 45 mmol in NaCl 0.9% 250 mL 45 mmol INTRAVENOUS PRN(NO DISPENSE) ondansetron (PF) 4 mg injection (ZOFRAN) 4 mg INTRAVENOUS q 6 H PRN acetaminophen 1,000 mg tab(s) (TYLENOL) 1,000 mg ORAL q 6 H ibuprofen 800 mg tab(s) (MOTRIN) 800 mg ORAL q 8 H oxyCODONE IR 5-10 mg tab(s) (ROXICODONE) 5-10 mg ORAL q 4 H PRN HYDROmorphone 0.2 mg injection (DILAUDID) 0.2 mg INTRAVENOUS q 3 H PRN enoxaparin 40 mg injection (LOVENOX) 40 mg SUBCUTANEOUS DAILY lovastatin 20 mg tab(s) (MEVACOR) 20 mg ORAL AT BEDTIME lisinopril 2.5 mg tab(s) 2.5 mg ORAL DAILY perphenazine 8 mg tab(s) 8 mg ORAL QID albuterol HFA 90 mcg/actuation 1-2 Puff (PROVENTIL HFA, VENTOLIN HFA) 1-2 Puff INHALATION QID PRN metoprolol tartrate (short acting) 25 mg tab(s) (LOPRESSOR) 25 mg ORAL q 12 H aspirin, enteric coated 81 mg tab(s) (ASPIRIN, ENTERIC COATED) 81 mg ORAL DAILY pantoprazole [address] 40 mg tab(s) (PROTONIX) 40 mg ORAL DAILY (6 AM) dextrose 40 % 15 g 15 g ORAL PRN glucagon 1 mg injection (GLUCAGEN) 1 mg INTRAMUSCULAR PRN dextrose 50% in water 25 mL syringe 12.5 g INTRAVENOUS PRN insulin lispro injection (rapid acting) (HumaLOG) SUBCUTANEOUS w MEALS insulin lispro injection (rapid acting) (HumaLOG) SUBCUTANEOUS AT BEDTIME cloZAPine 100 mg tab(s) (CLOZARIL) 100 mg ORAL BID (0600/2100) Objective PHYSICAL EXAM: BP 129/68 Pulse 80 Temp 36.4 ?C (97.6 ?F) (Oral) Resp 16 Ht 185.4 cm (6' 0.99) Wt 100.2 kg (221 lb) SpO2 94% BMI 29.16 kg/m? Intake/Output Summary (Last 24 hours) at 11/01/17 1153 Last data filed at 11/01/17 1050 Gross per 24 hour Intake 2440 ml Output 3625 ml Net -1185 ml Abdomen soft, non-tender, non-distended and stoma is pink, +function LABS: CBC, Coags, BMP, Mg, Phos Recent Labs 11/01/17 0429 10/31/17 0519 10/30/17 0639 WBC 7.22 8.50 8.32 HB 14.3 14.2 15.7 HCT 42.8 41.9 46.6 PLT 186 197 222 NA 139 141 141 K 4.0 3.2* 3.4* CHLOR 104 96* 93* CO2 23 33* 34* BUN 10 20 20 CREAT 0.90 1.37* 1.19 GLUC 112* 139* 162* CA 8.8 9.2 10.4* MG 2.0 1.8 2.0 P 1.8* 3.7 4.0 DATA: Diagnostic tests reviewed for today's visit: Most recent labs Assessment/Plan POSTOP PLANS: Routine postop care: Encourage ambulation, Incentive Spirometry Advance diet to clears with caution Discontinue moreno cathter Possible discharge tomorrow -will need stoma lesson with mother prior to DC Moreno: Continued Need for Moreno Catherization Due to Urinary output monitoring for critically ill patients Medication and Non-Pharmacologic VTE Prophylaxis/Anticoagulants Anticoagulant AND Antiplatelet Medications Start Dose Route Frequency Ordered Stop 10/26/17 0900 enoxaparin 40 mg injection (LOVENOX) (Surgical Moderate Risk ) 40 mg SUBCUTANEOUS DAILY 10/25/17 1453 -- 10/26/17 0900 aspirin, enteric coated 81 mg tab(s) (ASPIRIN, ENTERIC COATED) 81 mg ORAL DAILY 10/25/17 1219 -- 10/25/17 1500 pneumatic compression [place]ings [place] 10/25/17 1500 activity - mobilize [place] 10/25/17 0830 intermittent pneumatic compression VTE Prophylaxis: VTE prophylaxis appropriate Reason for Continuing Antibiotics: There is no need to continue antibiotics *A review of daily goals, interventions, and plan of care with the multidisciplinary team and patient has been conducted. The patient?s concerns have been addressed and he/she agrees to proceed with today?s plan of care. SIGNATURE: Yecenia Johnson PA-C PATIENT NAME: Faith Ghosh DATE: November 01, 2017 TIME: 11:55 AM PAGER/CONTACT #: [phone] Fellow's history reviewed. Patient interviewed and examined. I have personally examined the patient and repeated the munoz components of the exam/history. The assessment and plan were formulated and discussed with the resident/fellow. See fellow's note for further details. Feeling well NG out overnight No nausea or vomiting Ostomy functioning On exam: Abdomen soft, nontender, less distended Ostomy pink, thin output Plan: 1. Slow diet advancement 2. Moreno out 3. Continue Flomax Anne Fowler MD NURSING PROG Observed: 11/01/2017 Status: COMPLETED Source: [place] 6:18 AM [facility] REPOSITORY HNO ID: [id number] Author: Ana (Rn) STANLEY Del Valle Service: (none) Author Type: Registered Nurse Type: Nursing Progress Note Filed: 11/01/2017 6:21 AM Note Text: Nursing Progress Note Patient Name: Faith Ghosh Patient Location: [place] [address] Daily Note: 0600 pt pulled NGT out in his sleep (between 0500- 0600). NG only had 150 cc out overnight. ileo functioning 325 cc over night with intubation in. abd is soft and pt denies nausea or pain. Dr Leach notified. pt tugged on his catheter and it is slightly blood tinged ana urine this am. This note was completed by: Ana Del Valle RN CBC Collected: 11/01/2017 Status: F Source: [place] 4:29 AM [facility] REPOSITORY TYPE CODE TESTS RESULT OUT OF REFERENCE UNITS RANGE LAB WBC 3.70-11.00 k/uL WBC 7.22 LAB RBC 4.20-6.00 m/uL RBC 4.90 LAB HGB 13.0-17.0 g/dL Hemoglobin 14.3 LAB HCT 39.0-51.0 % Hematocrit 42.8 LAB MCV 80.0-100.0 fL MCV 87.3 LAB MCH 26.0-34.0 pG MCH 29.2 LAB MCHC 30.5-36.0 g/dL MCHC 33.4 LAB RDWCV 11.5-15.0 % RDW-CV 12.5 LAB PLTCT 150-400 k/uL Platelet Count 186 LAB MPV 9.0-12.7 fL MPV 10.9 LAB ABSNUC <0.01 k/uL Absolute nRBC <0.01 Performed By: #### CBC, BMP, MG1, PHOS #### [facility] [address] [place], [place] [address] BASIC METABOLIC PANL Collected: 11/01/2017 Status: F Source: [place] 4:29 AM [facility] REPOSITORY TYPE CODE TESTS RESULT OUT OF REFERENCE UNITS RANGE LAB GLU 74-99 mg/dL High Glucose 112 Result Comment: The [place] [employer] (ADA) provides guidance for cutoff values for fasting glucose and random glucose. The ADA defines fasting as no caloric intake for at least 8 hours. Fas ting plasma glucose results between 100 to 125 mg/dL indicate increased risk for diabetes (prediabetes). Fasting plasma glucose results greater than or equal to 126 mg/dL meet the criteria for diagnosis of diabetes. In the absence of unequivocal hyperglycemia, results should be confirmed by repeat testing. In a patient with classic symptoms of hyperglycemia or hyperglycemic crisis, random plasma glucose results greater than or equal to 200 mg/dL meet the criteria for diagnosis of diabetes. Reference: Standards of Medical Care in Diabetes 2016, [place] [employer]. Diabetes Care. 2016.39(Suppl 1). LAB BUN 9-24 mg/dL BUN 10 LAB CRET 0.73-1.22 mg/dL Creatinine 0.90 LAB NA 136-144 mmol/L Sodium 139 LAB K 3.7-5.1 mmol/L Potassium 4.0 LAB CL 97-105 mmol/L Chloride 104 LAB CO2 22-30 mmol/L CO2 23 LAB AGAP 9-18 mmol/L Anion Gap 12 LAB CA 8.5-10.2 mg/dL Calcium, Total 8.8 LAB GFRAA eGFR- Amer. >60 LAB GFRNAA . eGFR-All Other Races >60 Result Comment: eGFR (Estimated GFR) Units of measure: mL/min/1.73 meters squared eGFR is derived from the reexpressed MDRD Study equation using the following parameters: serum creatinine, age, gender and race. The creatinine assay has been calibrated to be traceable to IDMS. An eGFR <60 mL/min/1.73m2 for >3 months is consistent with chronic kidney disease. Refer to KDOQI guidelines for clinical interpretation. In patients with unstable renal function, e.g. those with acute kidney injury, the eGFR may not accurately reflect actual GFR. Performed By: #### CBC, BMP, MG1, PHOS #### [facility] [address] [place] [address] MAGNESIUM Collected: 11/01/2017 Status: F Source: [place] 4:29 AM [facility] REPOSITORY TYPE CODE TESTS RESULT OUT OF REFERENCE UNITS RANGE LAB MG 1.7-2.3 mg/dL Magnesium 2.0 Performed By: #### CBC, BMP, MG1, PHOS #### [facility] [address] [place] [address] PHOSPHORUS Collected: 11/01/2017 Status: F Source: [place] 4:29 AM [facility] REPOSITORY TYPE CODE TESTS RESULT OUT OF REFERENCE UNITS RANGE LAB PHOS 2.7-4.8 mg/dL Low Phosphorus 1.8 Performed By: #### CBC, BMP, MG1, PHOS #### [facility] [address] [place] [address] NURSING PROG Observed: 10/31/2017 Status: COMPLETED Source: [place] 3:48 PM [facility] REPOSITORY HNO ID: [id number] Author: Iliana OrtegaRn) STANLEY Higuera Service: (none) Author Type: Registered Nurse Type: Nursing Progress Note Filed: 10/31/2017 8:42 PM Note Text: Nursing Progress Note Patient Name: Faith Ghosh [address] Daily Note: VSS. AANDOX3. Pt. Had adequate output for shift (see epic for details). Pt. Ambulated the hallways twice today. NG clamp trial was done from 10a-2p. No c/o nausea or vomiting. Pain was controlled with scheduled meds. Abdomen XR was done, and K+ was replaced. This note was completed by: Iliana Higuera RN ALLIED HEALTH Observed: 10/31/2017 Status: COMPLETED Source: [place] 3:42 PM [facility] REPOSITORY HNO ID: [id number] Author: Svetlana Almendarez RN Service: Wound/Ostomy Author Type: Registered Nurse Type: Allied Health Filed: 10/31/2017 3:45 PM Note Text: ET/WOCN Nursing Consult Topic: ET/WOCN Consultation Note ET Outcome: Consulted to see patient today to give more supplies. Per RN she changed the pouch last evening. The flange remained intact but leakage was noted between the flange and the pouch. Currently the pouch is intact. Stoma is beefy red, moist, still intubated with moreno catheter. Supplies placed to bedside. Patient still has an NGT. ET's Next Scheduled Visit: Wednesday with hands-on lesson with mother if available Comment: 2 HVOP given Time Increment: 15 minutes Svetlana Almendarez RN BSN CWOCN on-call pager [phone] -11-27, weekends - PROGRESS Observed: 10/31/2017 Status: COMPLETED Source: [place] 9:25 AM [facility] REPOSITORY HNO ID: [id number] Author: Jessica Peña Service: Colorectal Author Type: Resident Type: Progress Notes Filed: 10/31/2017 11:22 AM Note Text: COLORECTAL SURGERY POSTOP PROGRESS NOTE SERVICE DATE: 10/31/2017 SERVICE TIME: 9:26 AM POD #5 Subjective INTERVAL HPI and PERTINENT ROS: Denies pain, no n/v/f/c 2600cc bilious NG output 400cc bilious ileostomy output Low urine output at 700cc over 24h Bladder scan showed 0 cc MEDICATIONS: Current hospital medications: nicotine 21 mg/24 hr 1 Patch (NICODERM) 1 Patch TRANSDERMAL DAILY nicotine -- REMOVE patch OTHER DAILY nicotine - verify patch OTHER q 8 H dextrose 5% in NaCl 0.45% with 20 mEq/L KCl iv infusion 100 mL/hr INTRAVENOUS CONTINUOUS tamsulosin ER 0.4 mg cap(s) (FLOMAX) 0.4 mg ORAL AT BEDTIME LORazepam 2 mg tab(s) (ATIVAN) 2 mg ORAL BID [MAR Hold due to Transfer] lidocaine 10 mg/mL (1 %) 1-2 mg injection (XYLOCAINE) 0.1-0.2 mL INTRADERMAL PRN [MAR Hold due to Transfer] enoxaparin 40 mg injection (LOVENOX) 40 mg SUBCUTANEOUS q 24 H potassium chloride ER 20-40 mEq tab(s) (K-DUR, KLOR-CON) 20- 40 mEq ORAL PRN potassium chloride iv piggyback 20 mEq/100 mL 20 mEq INTRAVENOUS PRN magnesium sulfate iv piggyback 2 g in D5W 50 mL 2 g INTRAVENOUS PRN(NO DISPENSE) sodium phosphate 45 mmol in NaCl 0.9% 250 mL 45 mmol INTRAVENOUS PRN(NO DISPENSE) ondansetron (PF) 4 mg injection (ZOFRAN) 4 mg INTRAVENOUS q 6 H PRN acetaminophen 1,000 mg tab(s) (TYLENOL) 1,000 mg ORAL q 6 H ibuprofen 800 mg tab(s) (MOTRIN) 800 mg ORAL q 8 H oxyCODONE IR 5-10 mg tab(s) (ROXICODONE) 5-10 mg ORAL q 4 H PRN HYDROmorphone 0.2 mg injection (DILAUDID) 0.2 mg INTRAVENOUS q 3 H PRN enoxaparin 40 mg injection (LOVENOX) 40 mg SUBCUTANEOUS DAILY lovastatin 20 mg tab(s) (MEVACOR) 20 mg ORAL AT BEDTIME lisinopril 2.5 mg tab(s) 2.5 mg ORAL DAILY perphenazine 8 mg tab(s) 8 mg ORAL QID albuterol HFA 90 mcg/actuation 1-2 Puff (PROVENTIL HFA, VENTOLIN HFA) 1-2 Puff INHALATION QID PRN metoprolol tartrate (short acting) 25 mg tab(s) (LOPRESSOR) 25 mg ORAL q 12 H aspirin, enteric coated 81 mg tab(s) (ASPIRIN, ENTERIC COATED) 81 mg ORAL DAILY pantoprazole [address] 40 mg tab(s) (PROTONIX) 40 mg ORAL DAILY (6 AM) dextrose 40 % 15 g 15 g ORAL PRN glucagon 1 mg injection (GLUCAGEN) 1 mg INTRAMUSCULAR PRN dextrose 50% in water 25 mL syringe 12.5 g INTRAVENOUS PRN insulin lispro injection (rapid acting) (HumaLOG) SUBCUTANEOUS w MEALS insulin lispro injection (rapid acting) (HumaLOG) SUBCUTANEOUS AT BEDTIME cloZAPine 100 mg tab(s) (CLOZARIL) 100 mg ORAL BID (599/2099) Objective PHYSICAL EXAM: BP 122/72 Pulse 81 Temp 36.3 ?C (97.3 ?F) (Axillary) Resp 16 Ht 185.4 cm (6' 0.99) Wt 100.2 kg (221 lb) SpO2 93% BMI 29.16 kg/m? Intake/Output Summary (Last 24 hours) at 10/31/17924 Last data filed at 10/31/17 0526 Gross per 24 hour Intake 4520 ml Output 3975 ml Net 545 ml Abdomen soft, non-tender, non-distended and stoma is pink, +function LABS: CBC, Coags, BMP, Mg, Phos Recent Labs 10/31/17 0519 10/30/17 0639 WBC 8.50 8.32 HB 14.2 15.7 HCT 41.9 46.6 PLT 197 222 NA 141 141 K 3.2* 3.4* CHLOR 96* 93* CO2 33* 34* BUN 20 20 CREAT 1.37* 1.19 GLUC 139* 162* CA 9.2 10.4* MG 1.8 2.0 P 3.7 4.0 DATA: Diagnostic tests reviewed for today's visit: Most recent labs Assessment/Plan POSTOP PLANS: Routine postop care: Encourage ambulation, Incentive Spirometry Continues to have low urine output s/p 500cc and 1L boluses f/u KUB Continue mIVF NPO with NG Clamp trial 10am-2pm and suction back on thereafter Moreno: Continued Need for Moreno Catherization Due to Urinary output monitoring for critically ill patients Medication and Non-Pharmacologic VTE Prophylaxis/Anticoagulants Anticoagulant AND Antiplatelet Medications Start Dose Route Frequency Ordered Stop 10/26/17 0900 enoxaparin 40 mg injection (LOVENOX) (Surgical Moderate Risk ) 40 mg SUBCUTANEOUS DAILY 10/25/17 1453 -- 10/26/17 0900 aspirin, enteric coated 81 mg tab(s) (ASPIRIN, ENTERIC COATED) 81 mg ORAL DAILY 10/25/17 1219 -- 10/25/17 0826 [MAR Hold due to Transfer] enoxaparin 40 mg injection (LOVENOX) (MAR Hold due to Transfer since 10/25/17 1009) 40 mg SUBCUTANEOUS EVERY 24 HOURS 10/25/17 0826 -- 10/25/17 1500 pneumatic compression stockings ([place]) 10/25/17 1500 activity - mobilize patient ([place]) 10/25/17 0830 intermittent pneumatic compression VTE Prophylaxis: VTE prophylaxis appropriate Reason for Continuing Antibiotics: There is no need to continue antibiotics *A review of daily goals, interventions, and plan of care with the multidisciplinary team and patient has been conducted. The patient?s concerns have been addressed and he/she agrees to proceed with today?s plan of care. SIGNATURE: Courtney Ismael BANKS PATIENT NAME: Faith Ghosh DATE: October 31, 2017 TIME: 9:25 AM PAGER/CONTACT #: [phone] Agree with above. Patient seen and plan discussed with fellow. Patient is a 57 y.o male s/p ileostomy creation. He continues to have low urine output that is responsive to fluid boluses. Received 1.5 L total last night. - High NGT output and moderate distention - KUB ordered - Clamp trial today from 10 am to 2 pm - Low urine OP - increase mIVF to 100cc/hr Jessica Peña MD PGY-1, General Surgery Pager: [phone] XR ABDOMEN 1V SUPINE Observed: 10/31/2017 Status: F Source: [place] 9:24 AM [facility] REPOSITORY * * *Final Report* * * DATE OF EXAM: Oct 31 2017 9:24AM LENNY 5289 - XR ABDOMEN 1V SUPINE / PROCEDURE REASON: Abd distension * * * * Physician Interpretation * * * * ABDOMEN, 1 VIEW labeled 10/31/2017 0917 hours CLINICAL INFORMATION: Abd distension . TECHNIQUE: Supine frontal view, 1 image(s) plus post-processed image(s). COMPARISON: 10/29/20173 hours RESULT: See impression. IMPRESSION: Several loops of mildly dilated small bowel throughout abdomen, service support representative segment measuring up to 4 cm in right para midline region. Findings may represent adynamic ileus or small bowel obstruction, overall similar to prior. Gastric drainage tube present, tip not optimally visualized, though probably coiled in gastric fundus. Side-port appears infradiaphragmatic in location. Medium bore catheter loops across the right abdomen. Degenerative changes in spine. Lung bases not well seen. Facility Maintenance Technician: PSCB Transcribe Date/Time: Oct 31 2017 1:11P Dictated by : TERRIE JUAN MD This examination was interpreted and the report reviewed and electronically signed by: TERRIE JUAN MD on Oct 31 2017 1:12PM EST [id number] CBC Collected: 10/31/2017 Status: F Source: [place] 5:19 AM [facility] REPOSITORY TYPE CODE TESTS RESULT OUT OF REFERENCE UNITS RANGE LAB WBC 3.70-11.00 k/uL WBC 8.50 LAB RBC 4.20-6.00 m/uL RBC 4.84 LAB HGB 13.0-17.0 g/dL Hemoglobin 14.2 LAB HCT 39.0-51.0 % Hematocrit 41.9 LAB MCV 80.0-100.0 fL MCV 86.6 LAB MCH 26.0-34.0 pG MCH 29.3 LAB MCHC 30.5-36.0 g/dL MCHC 33.9 LAB RDWCV 11.5-15.0 % RDW-CV 12.7 LAB PLTCT 150-400 k/uL Platelet Count 197 LAB MPV 9.0-12.7 fL MPV 10.9 LAB ABSNUC <0.01 k/uL Absolute nRBC <0.01 Performed By: #### CBC, BMP, MG1, PHOS #### [facility] [address] [place], [place] [address] BASIC METABOLIC PANL Collected: 10/31/2017 Status: F Source: [place] 5:19 AM [facility] REPOSITORY TYPE CODE TESTS RESULT OUT OF REFERENCE UNITS RANGE LAB GLU 74-99 mg/dL High Glucose 139 Result Comment: The [place] [employer] (ADA) provides guidance for cutoff values for fasting glucose and random glucose. The ADA defines fasting as no caloric intake for at least 8 hours. Fas ting plasma glucose results between 100 to 125 mg/dL indicate increased risk for diabetes (prediabetes). Fasting plasma glucose results greater than or equal to 126 mg/dL meet the criteria for diagnosis of diabetes. In the absence of unequivocal hyperglycemia, results should be confirmed by repeat testing. In a patient with classic symptoms of hyperglycemia or hyperglycemic crisis, random plasma glucose results greater than or equal to 200 mg/dL meet the criteria for diagnosis of diabetes. Reference: Standards of Medical Care in Diabetes 2016, [place] [employer]. Diabetes Care. 2016.39(Suppl 1). LAB BUN 9-24 mg/dL BUN 20 LAB CRET 0.73-1.22 mg/dL Creatinine High 1.37 LAB NA 136-144 mmol/L Sodium 141 LAB K 3.7-5.1 mmol/L Low Potassium 3.2 LAB CL 97-105 mmol/L Low Chloride 96 LAB CO2 22-30 mmol/L CO2 High 33 LAB AGAP 9-18 mmol/L Anion Gap 12 LAB CA 8.5-10.2 mg/dL Calcium, Total 9.2 LAB GFRAA eGFR- Amer. >60 LAB GFRNAA . eGFR-All Other Races 54 Result Comment: eGFR (Estimated GFR) Units of measure: mL/min/1.73 meters squared eGFR is derived from the reexpressed MDRD Study equation using the following parameters: serum creatinine, age, gender and race. The creatinine assay has been calibrated to be traceable to IDMS. An eGFR <60 mL/min/1.73m2 for >3 months is consistent with chronic kidney disease. Refer to KDOQI guidelines for clinical interpretation. In patients with unstable renal function, e.g. those with acute kidney injury, the eGFR may not accurately reflect actual GFR. Performed By: #### CBC, BMP, MG1, PHOS #### [facility] [address] [place] [id number] MAGNESIUM Collected: 10/31/2017 Status: F Source: [place] 5:19 AM [facility] REPOSITORY TYPE CODE TESTS RESULT OUT OF REFERENCE UNITS RANGE LAB MG 1.7-2.3 mg/dL Magnesium 1.8 Performed By: #### CBC, BMP, MG1, PHOS #### [facility] [address] [place], [place] [address] PHOSPHORUS Collected: 10/31/2017 Status: F Source: [place] 5:19 AM [facility] REPOSITORY TYPE CODE TESTS RESULT OUT OF REFERENCE UNITS RANGE LAB PHOS 2.7-4.8 mg/dL Phosphorus 3.7 Performed By: #### CBC, BMP, MG1, PHOS #### [facility] [address] [place] [id number] NURSING PROG Observed: 10/30/2017 Status: COMPLETED Source: [place] 11:00 PM [facility] REPOSITORY HNO ID: [id number] Author: Ana Ovalle) STANLEY Del Valle Service: (none) Author Type: Registered Nurse Type: Nursing Progress Note Filed: 10/31/2017 3:52 AM Note Text: Nursing Progress Note Patient Name: Faith Ghosh Patient Location: [place] [address] Daily Note: 2300 low uop from moreno 100 cc ana color urine. ileo is intubated with 200 cc bile drainage. NGT flushed, 400 cc output. VSS. MD notified 2345 500 cc LR bolus hung as ordered 0335 Dr Peña requested bladder scan. bladder scan reads zero. 0345 updated on outputs. moreno only 100 cc, NGT 1600 cc, ost 200 cc. MD ordered LR one liter bolus. This note was completed by: Ana Del Valle RN NURSING PROG Observed: 10/30/2017 Status: COMPLETED Source: [place] 6:54 PM [facility] REPOSITORY HNO ID: [id number] Author: Iliana OrtegaRn) STANLEY Higuera Service: (none) Author Type: Registered Nurse Type: Nursing Progress Note Filed: 10/30/2017 6:59 PM Note Text: Nursing Progress Note Patient Name: Faith Ghosh [facility] Note:VSS. AANDOx3. Pt. Potassium was replaced with 20 IV K+. One liter LR bolos was given in the AM for low urine output. Moreno was unintentionally taken out, two attempts by Aileen and myself was done to replace. However, no urine came out even though 244cc was bladder scanned. LIP notified, and a Coude Moreno was verbally ordered. Coude Moreno was placed with success, and 450cc immediately came out. LIP notified. Pt. Reported feeling dizzy, relaxation was encouraged. Pt was reassessed for dizziness, and reported it was gone. Pt. Attempted to ambulated hallways when dizziness was gone. Pain was controlled with tylenol, and 5mg oxycodone. NG was irrigated. Pt. Had no c/o nausea or vomiting. This note was completed by: Iliana Higuera RN PROGRESS Observed: 10/30/2017 Status: COMPLETED Source: [place] 10:51 AM [facility] REPOSITORY HNO ID: [id number] Author: Maria Isabel Leach (Fel) Service: Colorectal Author Type: Fellow Type: Progress Notes Filed: 10/30/2017 10:53 AM Note Text: COLORECTAL SURGERY POSTOP PROGRESS NOTE SERVICE DATE: 10/30/2017 SERVICE TIME: 6a POD #4 Subjective INTERVAL HPI and PERTINENT ROS: improved since yesterday, no nausea this am but 3L NG output/24hrs. Giving boluses. Stoma working MEDICATIONS: Current hospital medications: nicotine 21 mg/24 hr 1 Patch (NICODERM) 1 Patch TRANSDERMAL DAILY nicotine -- REMOVE patch OTHER DAILY nicotine - verify patch OTHER q 8 H dextrose 5% in NaCl 0.45% with 20 mEq/L KCl iv infusion 80 mL/hr INTRAVENOUS CONTINUOUS tamsulosin ER 0.4 mg cap(s) (FLOMAX) 0.4 mg ORAL AT BEDTIME LORazepam 2 mg tab(s) (ATIVAN) 2 mg ORAL BID [MAR Hold due to Transfer] lidocaine 10 mg/mL (1 %) 1-2 mg injection (XYLOCAINE) 0.1-0.2 mL INTRADERMAL PRN [MAR Hold due to Transfer] enoxaparin 40 mg injection (LOVENOX) 40 mg SUBCUTANEOUS q 24 H potassium chloride ER 20-40 mEq tab(s) (K-DUR, KLOR-CON) 20- 40 mEq ORAL PRN potassium chloride iv piggyback 20 mEq/100 mL 20 mEq INTRAVENOUS PRN magnesium sulfate iv piggyback 2 g in D5W 50 mL 2 g INTRAVENOUS PRN(NO DISPENSE) sodium phosphate 45 mmol in NaCl 0.9% 250 mL 45 mmol INTRAVENOUS PRN(NO DISPENSE) ondansetron (PF) 4 mg injection (ZOFRAN) 4 mg INTRAVENOUS q 6 H PRN acetaminophen 1,000 mg tab(s) (TYLENOL) 1,000 mg ORAL q 6 H ibuprofen 800 mg tab(s) (MOTRIN) 800 mg ORAL q 8 H gabapentin 300 mg cap(s) (NEURONTIN) 300 mg ORAL q 8 H oxyCODONE IR 5-10 mg tab(s) (ROXICODONE) 5-10 mg ORAL q 4 H PRN HYDROmorphone 0.2 mg injection (DILAUDID) 0.2 mg INTRAVENOUS q 3 H PRN enoxaparin 40 mg injection (LOVENOX) 40 mg SUBCUTANEOUS DAILY lovastatin 20 mg tab(s) (MEVACOR) 20 mg ORAL AT BEDTIME lisinopril 2.5 mg tab(s) 2.5 mg ORAL DAILY perphenazine 8 mg tab(s) 8 mg ORAL QID albuterol HFA 90 mcg/actuation 1-2 Puff (PROVENTIL HFA, VENTOLIN HFA) 1-2 Puff INHALATION QID PRN metoprolol tartrate (short acting) 25 mg tab(s) (LOPRESSOR) 25 mg ORAL q 12 H aspirin, enteric coated 81 mg tab(s) (ASPIRIN, ENTERIC COATED) 81 mg ORAL DAILY pantoprazole [address] 40 mg tab(s) (PROTONIX) 40 mg ORAL DAILY (6 AM) dextrose 40 % 15 g 15 g ORAL PRN glucagon 1 mg injection (GLUCAGEN) 1 mg INTRAMUSCULAR PRN dextrose 50% in water 25 mL syringe 12.5 g INTRAVENOUS PRN insulin lispro injection (rapid acting) (HumaLOG) SUBCUTANEOUS w MEALS insulin lispro injection (rapid acting) (HumaLOG) SUBCUTANEOUS AT BEDTIME cloZAPine 100 mg tab(s) (CLOZARIL) 100 mg ORAL BID (0600/2100) Objective PHYSICAL EXAM: BP 115/87 Pulse 101 Temp 36.7 ?C (98 ?F) (Oral) Resp 16 Ht 185.4 cm (6' 0.99) Wt 100.2 kg (221 lb) SpO2 94% BMI 29.16 kg/m? Intake/Output Summary (Last 24 hours) at 10/30/17 1051 Last data filed at 10/30/17 0654 Gross per 24 hour Intake 2550 ml Output 4575 ml Net -2025 ml Abdomen soft, non-tender, non-distended and stoma is pink, +function LABS: CBC, Coags, BMP, Mg, Phos Recent Labs 10/30/17 0639 WBC 8.32 HB 15.7 HCT 46.6 PLT 222 NA 141 K 3.4* CHLOR 93* CO2 34* BUN 20 CREAT 1.19 GLUC 162* CA 10.4* MG 2.0 P 4.0 DATA: Diagnostic tests reviewed for today's visit: Most recent labs and imaging results. Assessment/Plan POSTOP PLANS: Routine postop care: Encourage ambulation, Incentive Spirometry Replace 0.5:1cc of NG replacement Cont mnt IVF NPO with NG Ambulate Stoma care Keep moreno for today, urine output still low Hopefully can DC NG tomorrow Moreno: Continued Need for Moreno Catherization Due to Urinary output monitoring for critically ill patients Medication and Non-Pharmacologic VTE Prophylaxis/Anticoagulants Anticoagulant AND Antiplatelet Medications Start Dose Route Frequency Ordered Stop 10/26/17 0900 enoxaparin 40 mg injection (LOVENOX) (Surgical Moderate Risk ) 40 mg SUBCUTANEOUS DAILY 10/25/17 1453 -- 10/26/17 0900 aspirin, enteric coated 81 mg tab(s) (ASPIRIN, ENTERIC COATED) 81 mg ORAL DAILY 10/25/17 1219 -- 10/25/17 0826 [MAR Hold due to Transfer] enoxaparin 40 mg injection (LOVENOX) (MAR Hold due to Transfer since 10/25/17 1009) 40 mg SUBCUTANEOUS EVERY 24 HOURS 10/25/17 0826 -- 10/25/17 1500 pneumatic compression stockings ([place]) 10/25/17 1500 activity - mobilize patient ([place]) 10/25/17 0830 intermittent pneumatic compression VTE Prophylaxis: VTE prophylaxis appropriate Reason for Continuing Antibiotics: There is no need to continue antibiotics *A review of daily goals, interventions, and plan of care with the multidisciplinary team and patient has been conducted. The patient?s concerns have been addressed and he/she agrees to proceed with today?s plan of care. SIGNATURE: Maria Isabel Leach MD PATIENT NAME: Faith Ghosh DATE: October 30, 2017 TIME: 10:51 AM PAGER/CONTACT #: [phone] CBC Collected: 10/30/2017 Status: F Source: [place] 6:39 AM [facility] REPOSITORY TYPE CODE TESTS RESULT OUT OF REFERENCE UNITS RANGE LAB WBC 3.70-11.00 k/uL WBC 8.32 LAB RBC 4.20-6.00 m/uL RBC 5.46 LAB HGB 13.0-17.0 g/dL Hemoglobin 15.7 LAB HCT 39.0-51.0 % Hematocrit 46.6 LAB MCV 80.0-100.0 fL MCV 85.3 LAB MCH 26.0-34.0 pG MCH 28.8 LAB MCHC 30.5-36.0 g/dL MCHC 33.7 LAB RDWCV 11.5-15.0 % RDW-CV 13.0 LAB PLTCT 150-400 k/uL Platelet Count 222 LAB MPV 9.0-12.7 fL MPV 11.0 LAB ABSNUC <0.01 k/uL Absolute nRBC <0.01 Performed By: #### CBC, BMP, MG1, PHOS #### [facility] [address] [address] BASIC METABOLIC PANL Collected: 10/30/2017 Status: F Source: [place] 6:39 AM [facility] REPOSIT[facility] TYPE CODE TESTS RESULT OUT OF REFERENCE UNITS RANGE LAB GLU 74-99 mg/dL High Glucose 162 Result Comment: The [place] [employer] (ADA) provides guidance for cutoff values for fasting glucose and random glucose. The ADA defines fasting as no caloric intake for at least 8 hours. Fas ting plasma glucose results between 100 to 125 mg/dL indicate increased risk for diabetes (prediabetes). Fasting plasma glucose results greater than or equal to 126 mg/dL meet the criteria for diagnosis of diabetes. In the absence of unequivocal hyperglycemia, results should be confirmed by repeat testing. In a patient with classic symptoms of hyperglycemia or hyperglycemic crisis, random plasma glucose results greater than or equal to 200 mg/dL meet the criteria for diagnosis of diabetes. Reference: Standards of Medical Care in Diabetes 2016, [place] [employer]. Diabetes Care. 2016.39(Suppl 1). LAB BUN 9-24 mg/dL BUN 20 LAB CRET 0.73-1.22 mg/dL Creatinine 1.19 LAB NA 136-144 mmol/L Sodium 141 LAB K 3.7-5.1 mmol/L Low Potassium 3.4 LAB CL 97-105 mmol/L Low Chloride 93 LAB CO2 22-30 mmol/L CO2 High 34 LAB AGAP 9-18 mmol/L Anion Gap 14 LAB CA 8.5-10.2 mg/dL Calcium, High Total 10.4 LAB GFRAA eGFR- Amer. >60 LAB GFRNAA . eGFR-All Other Races >60 Result Comment: eGFR (Estimated GFR) Units of measure: mL/min/1.73 meters squared eGFR is derived from the reexpressed MDRD Study equation using the following parameters: serum creatinine, age, gender and race. The creatinine assay has been calibrated to be traceable to IDMS. An eGFR <60 mL/min/1.73m2 for >3 months is consistent with chronic kidney disease. Refer to KDOQI guidelines for clinical interpretation. In patients with unstable renal function, e.g. those with acute kidney injury, the eGFR may not accurately reflect actual GFR. Performed By: #### CBC, BMP, MG1, PHOS #### [facility] [address] [address] MAGNESIUM Collected: 10/30/2017 Status: F Source: [place] 6:39 AM [facility] REPOSITORY TYPE CODE TESTS RESULT OUT OF REFERENCE UNITS RANGE LAB MG 1.7-2.3 mg/dL Magnesium 2.0 Performed By: #### CBC, BMP, MG1, PHOS #### [facility] [address] [place], [place] [address] PHOSPHORUS Collected: 10/30/2017 Status: F Source: [place] 6:39 AM [facility] REPOSITORY TYPE CODE TESTS RESULT OUT OF REFERENCE UNITS RANGE LAB PHOS 2.7-4.8 mg/dL Phosphorus 4.0 Performed By: #### CBC, BMP, MG1, PHOS #### [facility] [address] [address] NURSING PROG Observed: 10/30/2017 Status: COMPLETED Source: [place] 2:35 AM [facility] REPOSITORY HNO ID: [id number] Author: Melinda OrtegaRn) STANLEY Moore Service: Nursing Author Type: Registered Nurse Type: Nursing Progress Note Filed: 10/30/2017 3:08 AM Note Text: Nursing Progress Note Patient Name: Faith Ghosh Patient Location: H050 029/H050-29 Daily Note:No acute issues overnight. NGT patent. 07-04 shift XEO=8765ma (pt. received IVF bolus prior to 1900) and zmmwa=128 (Dr. Bossman gu and RN will cont. to monitor.) Labs ordered for this a.m. Abd. softly distended w/<100cc from stoma at present (brown liquid)-stoma remains intubated. Pain well controlled, headache controlled w/Tylenol. This note was completed by: Melinda Moore RN XR ABDOMEN 1V Observed: 10/29/2017 Status: F Source: [place] SPECIFY 8:31 PM [facility] REPOSITORY * * *Final Report* * * DATE OF EXAM: Oct 29 2017 8:31PM LENNY 5288 - XR ABDOMEN 1V SPECIFY / PROCEDURE REASON: Evaluate tube, line or lead position * * * * Physician Interpretation * * * * ABDOMEN, 1 VIEW. CLINICAL INFORMATION: Tube placement TECHNIQUE: Supine abdomen, 1 image(s) COMPARISON: 10/29/2017 at 3:16 p.m. RESULT: See impression. IMPRESSION: NG/OG tube tip is in the mid stomach. There are multiple dilated small bowel loops. Pelvis excluded. Facility Maintenance Technician: [facility] Transcribe Date/Time: Oct 29 2017 9:51P Dictated by : MACKENZIE ZAMORA MD This examination was interpreted and the report reviewed and electronically signed by: MACKENZIE ZAMORA MD on Oct 29 2017 9:52PM EST [id number] PROGRESS Observed: 10/29/2017 Status: COMPLETED Source: [place] 6:04 PM [facility] REPOSITORY HNO ID: [id number] Author: Linus Donaldson Service: Colorectal Author Type: Resident Type: Progress Notes Filed: 10/29/2017 6:45 PM Note Text: COLORECTAL SURGERY POSTOP PROGRESS NOTE SERVICE DATE: 10/29/2017 SERVICE TIME: 6pm POD #4 POD #4 loop ileostomy Subjective 1) Mr. Ghosh is complaining of increasing abdominal distension and vomited. Has vomited 3 times in the past few hours, totalling 550cc dark brown liquid. Generally, is feeling bloated and uncomfortable. =>NG tube placed, immediate output 800cc dark brown fluid. Patient immediately felt better and abdomen distension markedlt improved. 2) Has been unable to pass urine since 9am, patent cath's approx 300cc removed. Cath was diffiicult to perform according to bedside nurses. Bladder scan now showed 247cc. Patient has had no urge to urinate. => Moreno placed-->250cc drained immediately MEDICATIONS: Current hospital medications: nicotine 21 mg/24 hr 1 Patch (NICODERM) 1 Patch TRANSDERMAL DAILY [START ON 10/30/2017] nicotine -- REMOVE patch OTHER DAILY nicotine - verify patch OTHER q 8 H dextrose 5% in NaCl 0.45% with 20 mEq/L KCl iv infusion 80 mL/hr INTRAVENOUS CONTINUOUS NaCl 0.9% 500 mL iv bolus 500 mL INTRAVENOUS ONCE tamsulosin ER 0.4 mg cap(s) (FLOMAX) 0.4 mg ORAL AT BEDTIME LORazepam 2 mg tab(s) (ATIVAN) 2 mg ORAL BID [MAR Hold due to Transfer] lidocaine 10 mg/mL (1 %) 1-2 mg injection (XYLOCAINE) 0.1-0.2 mL INTRADERMAL PRN [MAR Hold due to Transfer] enoxaparin 40 mg injection (LOVENOX) 40 mg SUBCUTANEOUS q 24 H potassium chloride ER 20-40 mEq tab(s) (K-DUR, KLOR-CON) 20- 40 mEq ORAL PRN potassium chloride iv piggyback 20 mEq/100 mL 20 mEq INTRAVENOUS PRN magnesium sulfate iv piggyback 2 g in D5W 50 mL 2 g INTRAVENOUS PRN(NO DISPENSE) sodium phosphate 45 mmol in NaCl 0.9% 250 mL 45 mmol INTRAVENOUS PRN(NO DISPENSE) ondansetron (PF) 4 mg injection (ZOFRAN) 4 mg INTRAVENOUS q 6 H PRN acetaminophen 1,000 mg tab(s) (TYLENOL) 1,000 mg ORAL q 6 H ibuprofen 800 mg tab(s) (MOTRIN) 800 mg ORAL q 8 H gabapentin 300 mg cap(s) (NEURONTIN) 300 mg ORAL q 8 H oxyCODONE IR 5-10 mg tab(s) (ROXICODONE) 5-10 mg ORAL q 4 H PRN HYDROmorphone 0.2 mg injection (DILAUDID) 0.2 mg INTRAVENOUS q 3 H PRN enoxaparin 40 mg injection (LOVENOX) 40 mg SUBCUTANEOUS DAILY lovastatin 20 mg tab(s) (MEVACOR) 20 mg ORAL AT BEDTIME lisinopril 2.5 mg tab(s) 2.5 mg ORAL DAILY perphenazine 8 mg tab(s) 8 mg ORAL QID albuterol HFA 90 mcg/actuation 1-2 Puff (PROVENTIL HFA, VENTOLIN HFA) 1-2 Puff INHALATION QID PRN metoprolol tartrate (short acting) 25 mg tab(s) (LOPRESSOR) 25 mg ORAL q 12 H aspirin, enteric coated 81 mg tab(s) (ASPIRIN, ENTERIC COATED) 81 mg ORAL DAILY pantoprazole DR 40 mg tab(s) (PROTONIX) 40 mg ORAL DAILY (6 AM) dextrose 40 % 15 g 15 g ORAL PRN glucagon 1 mg injection (GLUCAGEN) 1 mg INTRAMUSCULAR PRN dextrose 50% in water 25 mL syringe 12.5 g INTRAVENOUS PRN insulin lispro injection (rapid acting) (HumaLOG) SUBCUTANEOUS w MEALS insulin lispro injection (rapid acting) (HumaLOG) SUBCUTANEOUS AT BEDTIME cloZAPine 100 mg tab(s) (CLOZARIL) 100 mg ORAL BID (0600/2100) Objective PHYSICAL EXAM: BP 132/86 Pulse 97 Temp 37.7 ?C (99.8 ?F) (Oral) Resp 16 Ht 185.4 cm (6' 0.99) Wt 100.2 kg (221 lb) SpO2 93% BMI 29.16 kg/m? Intake/Output Summary (Last 24 hours) at 10/29/17 1805 Last data filed at 10/29/17 1749 Gross per 24 hour Intake 1010 ml Output 1050 ml Net -40 ml - General: Patient appears well developed, not in acute distress, is resting comfortably on exam, and is pleasant and cooperative. Is alert and oriented x3. - Abdomen: hard, non tender, very distended. - Chest: Non-labored, symmetrical respirations. LABS: CBC, Coags, BMP, Mg, Phos Recent Labs 10/26/17 2241 WBC 7.59 HB 14.4 HCT 42.6 PLT 193 NA 142 K 4.2 CHLOR 105 CO2 24 BUN 11 CREAT 0.96 GLUC 116* CA 9.0 MG 2.2 P 3.7 DATA: Diagnostic tests reviewed for today's visit: Most recent labs Assessment/Plan Interval/Evening update 1) Mr. Ghosh is complaining of increasing abdominal distension and vomited. Has vomited 3 times in the past few hours, totalling 550cc dark brown liquid. Generally, is feeling bloated and uncomfortable. Xray KUB showing dilated bowel loops =>NG tube placed (discussed with [facility]ORS fellow), immediate output 800cc dark brown fluid. Patient immediately felt better and abdomen distension markedly improved. 2) Patient unable to pass urine since 9am, patient cath'd in AM and approx 300cc removed. Cath was diffiicult to perform according to bedside nurses. Bladder scan now showed 247cc. Patient has had no urge to urinate. => Moreno placed-->250cc drained immediately -diet: changed to NPO with ice chips only Rest of plan as per previous CORS note this AM: Home psych meds Multimodal pain control minimize narcotics Routine postop care: Encourage ambulation, Incentive Spirometry Stoma intubation Trend stoma output Moreno: Continued Need for Moreno Catherization Due to Acute urinary retention/obstruction Medication and Non-Pharmacologic VTE Prophylaxis/Anticoagulants Anticoagulant AND Antiplatelet Medications Start Dose Route Frequency Ordered Stop 10/26/17 0900 enoxaparin 40 mg injection (LOVENOX) (Surgical Moderate Risk ) 40 mg SUBCUTANEOUS DAILY 10/25/17 1453 -- 10/26/17 0900 aspirin, enteric coated 81 mg tab(s) (ASPIRIN, ENTERIC COATED) 81 mg ORAL DAILY 10/25/17 1219 -- 10/25/17 0826 [MAR Hold due to Transfer] enoxaparin 40 mg injection (LOVENOX) (MAR Hold due to Transfer since 10/25/17 1009) 40 mg SUBCUTANEOUS EVERY 24 HOURS 10/25/17 0826 -- 10/25/17 1500 pneumatic compression stockings ([place] 10/25/17 1500 activity - mobilize patient ([place] 10/25/17 0830 intermittent pneumatic compression VTE Prophylaxis: VTE prophylaxis appropriate Reason for Continuing Antibiotics: There is no need to continue antibiotics *A review of daily goals, interventions, and plan of care with the multidisciplinary team and patient has been conducted. The patient?s concerns have been addressed and he/she agrees to proceed with today?s plan of care. ? Linus Donaldson MD PGY-1 Resident, General Surgery Pager: [phone]; Dated: October 29, 2017, 6:43 PM ? ETX#[id number] NURSING PROG Observed: 10/29/2017 Status: COMPLETED Source: [place] 3:27 PM [facility] REPOSITORY HNO ID: [id number] Author: La Nena (Rn) STANLEY Lou Service: (none) Author Type: Registered Nurse Type: Nursing Progress Note Filed: 10/29/2017 8:36 PM Note Text: Nursing Progress Note Patient Name: Faith Ghosh [address] Daily Note:shift note 0915: Pt straight cathed for 300cc dark ana urine. pt reporting difficulty urinating. 1500: Notified by PCNA of pt emesis of 300cc brown stool like fluid. Pt had emesis basin under bed. Pt previously c/o some nausea but never told RN of emesis. Pt also stated he vomited earlier today but it was clear to white fluid but then later said it was actually brown fluid. Pt unable to void and denied need/sensation to urinate. notified Yecenia OVALLE, ordered to give pt more time. 1733: Pt unable to void. Bladder scanned for 247.Emesis of 550cc brown fluid. Page sent to MD. 500cc NS bolus hung. Awaiting further orders. 1800: Dr Donaldson at bedside. Ordered for NGT insertion and moreno insertion. 16Fr NGT placed by without difficulty. 700cc thick brown fluid out immediately. Moreno placed without difficulty and dark ana urine draining. Pt did report relief in abdominal distention, nausea and acid reflux. Instructed pt on NPO except ice chips now. This note was completed by: La Nena Lou RN XR ABD 2V SUPINE W Observed: 10/29/2017 Status: F Source: [place] UPR//CTL 3:24 PM [facility] REPOSITORY * * *Final Report* * * DATE OF EXAM: Oct 29 2017 3:24PM LENNY 5356 - XR ABD 2V SUPINE W UPR//CTL / PROCEDURE REASON: Nausea, vomiting * * * * Physician Interpretation * * * * SUPINE AND UPRIGHT/DECUBITUS ABDOMEN, 2 VIEWS. CLINICAL INFORMATION: Nausea and vomiting. TECHNIQUE: Supine and upright views, 3 image(s) COMPARISON: 08/20/2017 RESULT: The stomach is markedly dilated. Multiple moderately dilated small bowel loops are present with a maximum diameter of 5.5 cm. No significant colonic gas. There are no pathologic calcifications. There are degenerative changes in the spine. There is no free gas on the upright view. IMPRESSION: ABDOMEN X-RAY FINDINGS SUGGEST SMALL BOWEL OBSTRUCTION [facility] Transcribe Date/Time: Oct 29 2017 3:45P Dictated by : MARIA ISABEL ROSS MD This examination was interpreted and the report reviewed and electronically signed by: MARIA ISABEL ROSS MD on Oct 29 2017 3:48PM EST [id number] PROGRESS Observed: 10/29/2017 Status: COMPLETED Source: [place] 1:42 PM [facility] REPOSITORY HNO ID: [id number] Author: Yecenia Johnson (Pa) Service: Colorectal Author Type: Physician Smasher Hand Type: Progress Notes Filed: 10/29/2017 1:43 PM Note Text: COLORECTAL SURGERY POSTOP PROGRESS NOTE SERVICE DATE: 10/29/2017 SERVICE TIME: 0800 POD #4 loop ileostomy Subjective INTERVAL HPI and PERTINENT ROS: Pain well controlled Stoma with minimal function Feels nauseated MEDICATIONS: Current hospital medications: nicotine 21 mg/24 hr 1 Patch (NICODERM) 1 Patch TRANSDERMAL DAILY [START ON 10/30/2017] nicotine -- REMOVE patch OTHER DAILY nicotine - verify patch OTHER q 8 H dextrose 5% in NaCl 0.45% with 20 mEq/L KCl iv infusion 80 mL/hr INTRAVENOUS CONTINUOUS tamsulosin ER 0.4 mg cap(s) (FLOMAX) 0.4 mg ORAL AT BEDTIME LORazepam 2 mg tab(s) (ATIVAN) 2 mg ORAL BID [MAR Hold due to Transfer] lidocaine 10 mg/mL (1 %) 1-2 mg injection (XYLOCAINE) 0.1-0.2 mL INTRADERMAL PRN [MAR Hold due to Transfer] enoxaparin 40 mg injection (LOVENOX) 40 mg SUBCUTANEOUS q 24 H potassium chloride ER 20-40 mEq tab(s) (K-DUR, KLOR-CON) 20- 40 mEq ORAL PRN potassium chloride iv piggyback 20 mEq/100 mL 20 mEq INTRAVENOUS PRN magnesium sulfate iv piggyback 2 g in D5W 50 mL 2 g INTRAVENOUS PRN(NO DISPENSE) sodium phosphate 45 mmol in NaCl 0.9% 250 mL 45 mmol INTRAVENOUS PRN(NO DISPENSE) ondansetron (PF) 4 mg injection (ZOFRAN) 4 mg INTRAVENOUS q 6 H PRN acetaminophen 1,000 mg tab(s) (TYLENOL) 1,000 mg ORAL q 6 H ibuprofen 800 mg tab(s) (MOTRIN) 800 mg ORAL q 8 H gabapentin 300 mg cap(s) (NEURONTIN) 300 mg ORAL q 8 H oxyCODONE IR 5-10 mg tab(s) (ROXICODONE) 5-10 mg ORAL q 4 H PRN HYDROmorphone 0.2 mg injection (DILAUDID) 0.2 mg INTRAVENOUS q 3 H PRN enoxaparin 40 mg injection (LOVENOX) 40 mg SUBCUTANEOUS DAILY lovastatin 20 mg tab(s) (MEVACOR) 20 mg ORAL AT BEDTIME lisinopril 2.5 mg tab(s) 2.5 mg ORAL DAILY perphenazine 8 mg tab(s) 8 mg ORAL QID albuterol HFA 90 mcg/actuation 1-2 Puff (PROVENTIL HFA, VENTOLIN HFA) 1-2 Puff INHALATION QID PRN metoprolol tartrate (short acting) 25 mg tab(s) (LOPRESSOR) 25 mg ORAL q 12 H aspirin, enteric coated 81 mg tab(s) (ASPIRIN, ENTERIC COATED) 81 mg ORAL DAILY pantoprazole DR 40 mg tab(s) (PROTONIX) 40 mg ORAL DAILY (6 AM) dextrose 40 % 15 g 15 g ORAL PRN glucagon 1 mg injection (GLUCAGEN) 1 mg INTRAMUSCULAR PRN dextrose 50% in water 25 mL syringe 12.5 g INTRAVENOUS PRN insulin lispro injection (rapid acting) (HumaLOG) SUBCUTANEOUS w MEALS insulin lispro injection (rapid acting) (HumaLOG) SUBCUTANEOUS AT BEDTIME cloZAPine 100 mg tab(s) (CLOZARIL) 100 mg ORAL BID (0600/2100) Objective PHYSICAL EXAM: BP 117/88 Pulse 94 Temp 37.4 ?C (99.4 ?F) (Oral) Resp 16 Ht 185.4 cm (6' 0.99) Wt 100.2 kg (221 lb) SpO2 97% BMI 29.16 kg/m? Intake/Output Summary (Last 24 hours) at 10/29/17 1342 Last data filed at 10/29/17 0930 Gross per 24 hour Intake 590 ml Output 1000 ml Net -410 ml Abdomen soft, non-tender and distended LABS: CBC, Coags, BMP, Mg, Phos Recent Labs 10/26/17 2241 WBC 7.59 HB 14.4 HCT 42.6 PLT 193 NA 142 K 4.2 CHLOR 105 CO2 24 BUN 11 CREAT 0.96 GLUC 116* CA 9.0 MG 2.2 P 3.7 DATA: Diagnostic tests reviewed for today's visit: Most recent labs and imaging results. Assessment/Plan This is a 57-year-old male patient with schizoaffective disorder, HTN, HLD, COPD, GERD, DM2 and outlet obstruction constipation who is now POD3 following ileostomy creation. He is recovering well thus far and his stoma is beginning to function. Diet: step back to NPO with sips of clears and ice chips for comfort Home psych meds Multimodal pain control -minimize narcotics Routine postop care: Encourage ambulation, Incentive Spirometry Stoma intubation Trend stoma output Moreno: No Moreno Present Medication and Non-Pharmacologic VTE Prophylaxis/Anticoagulants Anticoagulant AND Antiplatelet Medications Start Dose Route Frequency Ordered Stop 10/26/17 0900 enoxaparin 40 mg injection (LOVENOX) (Surgical Moderate Risk ) 40 mg SUBCUTANEOUS DAILY 10/25/17 1453 -- 10/26/17 0900 aspirin, enteric coated 81 mg tab(s) (ASPIRIN, ENTERIC COATED) 81 mg ORAL DAILY 10/25/17 1219 -- 10/25/17 0826 [MAR Hold due to Transfer] enoxaparin 40 mg injection (LOVENOX) (MAR Hold due to Transfer since 10/25/17 1009) 40 mg SUBCUTANEOUS EVERY 24 HOURS 10/25/17 0826 -- 10/25/17 1500 pneumatic compression stockings ([place] 10/25/17 1500 activity - mobilize patient ([place] 10/25/17 0830 intermittent pneumatic compression VTE Prophylaxis: VTE prophylaxis appropriate Reason for Continuing Antibiotics: N/A *A review of daily goals, interventions, and plan of care with the multidisciplinary team and patient has been conducted. The patient?s concerns have been addressed and he/she agrees to proceed with today?s plan of care. SIGNATURE: Yecenia Johnson PA-C PATIENT NAME: Faith Ghosh DATE: October 29, 2017 TIME: 1:43 PM PAGER/CONTACT #: [phone] [facility] Observed: 10/29/2017 Status: COMPLETED Source: [place] 1:11 PM [facility] REPOSIT[facility] O ID: [id number] Author: Andrew (Rn) STANLEY Galvan Service: Wound/Ostomy Author Type: Registered Nurse Type: Allied Health Filed: 10/29/2017 1:25 PM Note Text: ET/WOCN Nursing Consult Topic: ET/WOCN Consultation Note ET Outcome: Reconsulted today to intubate stoma, stoma intubated and pouch changed ET's Next Scheduled Visit: 11/01/17-Lesson # 2-patient would like mother to be present for lesson and per patient she will only be coming date of discharge due to driving distance from hospital. Discharge needs will also need to be assessed. Stoma Type: Loop ileostomy Diameter:1 1/2 x 1 5/8 Location: RLQ Protrusion: Budded Mucosal condition and color: Red and moist and edematous Mucocutaneous junction Intact Peristomal Skin: Erythema Location of Skin Impairment: Circumferential Peristomal contour: Rounded, distended Supportive Tissue: Very firm Character of output: Bowel sweat in pouch, pouch removed and stoma intubated with 18 [place] Moreno-Used Normal Saline 60cc x 2 used to insert moreno catheter. Only 60cc return of clear liquid with brown flecks Emptying frequency per day: per nursing Current pouching system: Coloplast Sensura [place] Two Piece Flex Flat (Red) flange, Coloplast 4.2mm Brava Moldable Ring, and drainable pouch Current wearing time: 3-4 Days Recommendations: Skin Care: Stomahesive powder used on skin irritation surounding stoma Pouching System: Same as above but used HVOP to accommodate moreno cathether Wear Time: 3-4 Days Midline Abdominal Incision: Other: Laparoscopic sites with steri strips placed and MONICO. Comment: Supplies present at the bedside. Time Increment: 1 hour 30 minutes Rakel Cassidy BSN RN CWN [id number] Andrew Galvan, REYNOLD, RN [facility] Nursing M-F 7a-4p, S, Sun, and Holidays 7a-3p [id number] PROGRESS Observed: 10/29/2017 Status: COMPLETED Source: [place] 11:48 AM [facility] HNO ID: [id number] Author: Anne Fowler Service: Colorectal Author Type: Physician Type: Progress Notes Filed: 10/29/2017 11:49 AM Note Text: Fellow's history reviewed. Patient interviewed and examined. I have personally examined the patient and repeated the munoz components of the exam/history. The assessment and plan were formulated and discussed with the resident/fellow. See fellow's note for further details. Feeling more bloated today Nauseated, no vomiting On exam: Abdomen soft, more distended Ostomy pink, minimal thin output Plan: 1. Will ask enterostomal therapy to intubate ileostomy 2. NPO for now Anne Fowler MD CASE MANAGEM Observed: 10/29/2017 Status: COMPLETED Source: [place] 10:55 AM [facility] RE[facility] HNO ID: [id number] Author: Litzy OrtegaRn) STANLEY Cohen Service: Care Management Author Type: Registered Nurse Type: Care Mgt Progress Note Filed: 10/29/2017 11:02 AM Note Text: CARE MANAGEMENT PROGRESS NOTE SERVICE DATE: 10/29/2017 SERVICE TIME: 10:55 AM LOS: 4 days Needs Prior to Discharge: Other: See Comment (Medical clearance) Per morning rounds report anticipated discharge home with skilled home care for ostomy care. Discharge pending stoma function. Anticipated weekend discharge. When medically cleared [facility] home care F: [phone] to provide home care services. Fax the discharge instructions and other information faxed [phone] ? SIGNATURE: Litzy Cohen RN PATIENT NAME: Faith Ghosh DATE: October 29, 2017 TIME: 10:55 AM PAGER/CONTACT #: [phone] [facility] Observed: 10/29/2017 Status: COMPLETED Source: [place] 10:38 AM [facility] HNO ID: [id number] Author: Andrew OrtegaRn) STANLEY Galvan Service: Wound/Ostomy Author Type: Registered Nurse Type: Allied Health Filed: 10/29/2017 10:47 AM Note Text: ET/WOCN Nursing Consult Topic: ET/WOCN Consultation Note ET Outcome: Consulted for lesson #2-hands-on. Patient wishes for mother to be present for lesson. However, patient's mother will only be here on day of discharge. Spoke with Yecenia Johnson PA-C-patient not to be discharged today due to awaiting bowel function. Upon assessment, stoma is able to be visualized through pouching system-it is red, moist, and with only bowel sweat present in the pouch. Abdomen is distended. Lesson to be deferred until patient's mother is present. Pouching system present: Coloplast Sensura [place] Two Piece Flex Flat Red, Coloplast Brava 4.2mm moldable ring, and drainable pouch. Seal is intact. ET's Next Scheduled Visit: 11/01/17 for lesson #2 and assessment discharge needs. Time Increment: 15 minutes REYNOLD Cifuentes, RN [facility] Nursing ASHLEY NailsN RN CWOCN [id number] M-F 7a-4p, S, Sun, and Holidays 7a-3p [id number] CASE MANAGEM Observed: 10/28/2017 Status: COMPLETED Source: [place] 2:26 PM [facility] HNO ID: [id number] Author: Litzy OrtegaRnJa Cohen RN Service: Care Management Author Type: Registered Nurse Type: Care Mgt Progress Note Filed: 10/28/2017 2:35 PM Note Text: CARE MANAGEMENT PROGRESS NOTE SERVICE DATE: 10/28/2017 SERVICE TIME: 2:26 PM LOS: 3 days Needs Prior to Discharge: Accepting Facility Per morning rounds report, anticipated discharge home on Wednesday. CM spoke with [facility] to provide home care services. Requested discharge and other information be faxed [phone] SIGNATURE: Litzy Cohen RN PATIENT NAME: Faith Ghosh DATE: October 28, 2017 TIME: 2:26 PM PAGER/CONTACT #: [phone] CASE MANAGEM Observed: 10/28/2017 Status: COMPLETED Source: [place] 2:16 PM [facility] HNO ID: [id number] Author: Marce Pride (Asst) Service: Care Management Author Type: Resource Center Smasher Hand Type: Care Mgt Progress Note Filed: 10/28/2017 2:17 PM Note Text: CARE MANAGEMENT PROGRESS NOTE SERVICE DATE: 10/28/2017 SERVICE TIME: 12:04 pm LOS: 3 days IM letter given to patient on 10/28/17. SIGNATURE: Asst Pablo PATIENT NAME: Faith Ghosh DATE: October 28, 2017 TIME: 2:16 PM PAGER/CONTACT #: [phone] PROGRESS Observed: 10/28/2017 Status: COMPLETED Source: [place] 8:44 AM [facility] HNO ID: [id number] Author: Anne Fowler Service: Colorectal Author Type: Physician Type: Progress Notes Filed: 10/28/2017 5:11 PM Note Text: COLORECTAL SURGERY POSTOP PROGRESS NOTE SERVICE DATE: 10/27/2017 SERVICE TIME: 0800 POD #3 loop ileostomy Subjective INTERVAL HPI and PERTINENT ROS: Pain well controlled Stoma with minimal function MEDICATIONS: Current hospital medications: tamsulosin ER 0.4 mg cap(s) (FLOMAX) 0.4 mg ORAL AT BEDTIME LORazepam 2 mg tab(s) (ATIVAN) 2 mg ORAL BID [MAR Hold due to Transfer] lidocaine 10 mg/mL (1 %) 1-2 mg injection (XYLOCAINE) 0.1-0.2 mL INTRADERMAL PRN [MAR Hold due to Transfer] enoxaparin 40 mg injection (LOVENOX) 40 mg SUBCUTANEOUS q 24 H potassium chloride ER 20-40 mEq tab(s) (K-DUR, KLOR-CON) 20- 40 mEq ORAL PRN potassium chloride iv piggyback 20 mEq/100 mL 20 mEq INTRAVENOUS PRN magnesium sulfate iv piggyback 2 g in D5W 50 mL 2 g INTRAVENOUS PRN(NO DISPENSE) sodium phosphate 45 mmol in NaCl 0.9% 250 mL 45 mmol INTRAVENOUS PRN(NO DISPENSE) ondansetron (PF) 4 mg injection (ZOFRAN) 4 mg INTRAVENOUS q 6 H PRN acetaminophen 1,000 mg tab(s) (TYLENOL) 1,000 mg ORAL q 6 H ibuprofen 800 mg tab(s) (MOTRIN) 800 mg ORAL q 8 H gabapentin 300 mg cap(s) (NEURONTIN) 300 mg ORAL q 8 H oxyCODONE IR 5-10 mg tab(s) (ROXICODONE) 5-10 mg ORAL q 4 H PRN HYDROmorphone 0.2 mg injection (DILAUDID) 0.2 mg INTRAVENOUS q 3 H PRN enoxaparin 40 mg injection (LOVENOX) 40 mg SUBCUTANEOUS DAILY lovastatin 20 mg tab(s) (MEVACOR) 20 mg ORAL AT BEDTIME lisinopril 2.5 mg tab(s) 2.5 mg ORAL DAILY perphenazine 8 mg tab(s) 8 mg ORAL QID albuterol HFA 90 mcg/actuation 1-2 Puff (PROVENTIL HFA, VENTOLIN HFA) 1-2 Puff INHALATION QID PRN metoprolol tartrate (short acting) 25 mg tab(s) (LOPRESSOR) 25 mg ORAL q 12 H aspirin, enteric coated 81 mg tab(s) (ASPIRIN, ENTERIC COATED) 81 mg ORAL DAILY pantoprazole DR 40 mg tab(s) (PROTONIX) 40 mg ORAL DAILY (6 AM) dextrose 40 % 15 g 15 g ORAL PRN glucagon 1 mg injection (GLUCAGEN) 1 mg INTRAMUSCULAR PRN dextrose 50% in water 25 mL syringe 12.5 g INTRAVENOUS PRN insulin lispro injection (rapid acting) (HumaLOG) SUBCUTANEOUS w MEALS insulin lispro injection (rapid acting) (HumaLOG) SUBCUTANEOUS AT BEDTIME cloZAPine 100 mg tab(s) (CLOZARIL) 100 mg ORAL BID (599/2099) Objective PHYSICAL EXAM: BP 112/80 Pulse 96 Temp 37.1 ?C (98.7 ?F) (Oral) Resp 16 Ht 185.4 cm (6' 0.99) Wt 100.2 kg (221 lb) SpO2 95% BMI 29.16 kg/m? Intake/Output Summary (Last 24 hours) at 10/28/17 0844 Last data filed at 10/28/17 05 Gross per 24 hour Intake 1500 ml Output 1050 ml Net 450 ml Abdomen soft, non-tender and non-distended LABS: CBC, Coags, BMP, Mg, Phos Recent Labs 10/26/17 2241 10/26/17 0043 10/25/17 1746 WBC 7.59 7.55 7.11 HB 14.4 14.6 15.0 HCT 42.6 41.9 45.2 PLT 193 179 181 NA 142 141 -- K 4.2 3.5* -- CHLOR 105 102 -- CO2 24 21* -- BUN 11 9 -- CREAT 0.96 0.86 -- GLUC 116* 119* -- CA 9.0 8.4* -- MG 2.2 2.0 -- P 3.7 3.7 -- DATA: Diagnostic tests reviewed for today's visit: Most recent labs and imaging results. Assessment/Plan This is a 57-year-old male patient with schizoaffective disorder, HTN, HLD, COPD, GERD, DM2 and outlet obstruction constipation who is now POD3 following ileostomy creation. He is recovering well thus far and his stoma is beginning to function. Diet: continue GIS as tolerated Home psych meds Multimodal pain control -minimize narcotics Routine postop care: Encourage ambulation, Incentive Spirometry Trend stoma output Moreno: No Moreno Present Medication and Non-Pharmacologic VTE Prophylaxis/Anticoagulants Anticoagulant AND Antiplatelet Medications Start Dose Route Frequency Ordered Stop 10/26/17 0900 enoxaparin 40 mg injection (LOVENOX) (Surgical Moderate Risk ) 40 mg SUBCUTANEOUS DAILY 10/25/17 1453 -- 10/26/17 0900 aspirin, enteric coated 81 mg tab(s) (ASPIRIN, ENTERIC COATED) 81 mg ORAL DAILY 10/25/17 1219 -- 10/25/17 0826 [MAR Hold due to Transfer] enoxaparin 40 mg injection (LOVENOX) (MAR Hold due to Transfer since 10/25/17 1009) 40 mg SUBCUTANEOUS EVERY 24 HOURS 10/25/17 0826 -- 10/25/17 1500 pneumatic compression stockings ([place] 10/25/17 1500 activity - mobilize patient ([place] 10/25/17 0830 intermittent pneumatic compression VTE Prophylaxis: VTE prophylaxis appropriate Reason for Continuing Antibiotics: N/A *A review of daily goals, interventions, and plan of care with the multidisciplinary team and patient has been conducted. The patient?s concerns have been addressed and he/she agrees to proceed with today?s plan of care. SIGNATURE: Yecenia Johnson PA-C PATIENT NAME: Faith Ghosh DATE: October 27, 2017 TIME: 8:45 AM PAGER/CONTACT #: [phone] Fellow's history reviewed. Patient interviewed and examined. I have personally examined the patient and repeated the munoz components of the exam/history. The assessment and plan were formulated and discussed with the resident/fellow. See fellow's note for further details. Feeling a bit bloated No nausea or vomiting No significant ostomy output On exam: Abdomen soft, nontender, moderately distended Ostomy pink, no significant output Plan: 1. Await improved bowel function 2. Out of bed 3. Ostomy teaching Anne Fowler MD ALLIED HE[facility] Observed: 10/27/2017 Status: COMPLETED Source: [place] 7:42 PM [facility] REPOSITORY O ID: [id number] Author: Lacie Goodwin (Rn) STANLEY Pabon Service: Wound/Ostomy Author Type: Registered Nurse Type: Allied Health Filed: 10/27/2017 7:49 PM Note Text: ET/WOC NURSING TOPIC: POST-OPERATIVE ASSESSMENT AND CARE: GI Stoma PATIENT NAME: Faith Ghosh DATE: October 27, 2017 TIME: 7:43 PM ET Care Outcome: Shaista removal, fitting lesson #1 completed. ET's Next Scheduled Visit: 10/28 Hands on lesson #2, defer if no d/c. Patient needs another lesson with his Mother present. Will need script and 2 weeks of supplies, and WOC paperwork Stoma type: Loop ileostomy Diameter: 1 1/2 slightly oval Location: RLQ Protrusion: Budded Mucosal condition and color: Red and moist and edematous, layer of slough tightly adhered to lower half of stoma Shaista: Yes Sutured? No Movable? Yes Tension? None Shaista removed without difficulty Mucocutaneous Junction: Separation shaista exit sites Output: No: bowel sweat only noted in pouch Peristomal Skin: Clear and intact Location of Skin Impairment: NA Treatment of Skin Impairment: NA ET Peristomal Contour: Rounded Supportive Tissue: Firm Pouching System: Applied Coloplast SenSura Michael Flex, RED, flat flange, cut to fit, Coloplast 4.2mm Brava ring, drainable pouch Incision: lap sites and bandaids intact Time Increment: 45 minutes Comments: NA Education: Yes: See Patient Education Note Supplies Given: Additional pouch change at bedside Lacie (Sammi Pabon RN, BSN, CWOCN NURSING PROG Observed: 10/27/2017 Status: COMPLETED Source: [place] 2:44 PM [facility] REPOSITORY HNO ID: [id number] Author: Iliana Ovalle) STANLEY Higuera Service: (none) Author Type: Registered Nurse Type: Nursing Progress Note Filed: 10/27/2017 6:47 PM Note Text: Nursing Progress Note Patient Name: Faith Ghosh [id number] Daily Note:VSS. AANDOx3. Pt ambulated the halls, and took a shower. Pt. Was not able to void for shift. Warm pack on the bladder was tried, with no success. Cors on-call was notified. Verbally instructed to continue to monitor urinary output until the next shift. At 1600 pt. Was able to void 400cc without further intervention. Ost. had 50cc out. Pain controlled with schedule meds, and 5mg oxycodone. This note was completed by: Iliana Higuera RN CASE MANAGEM Observed: 10/27/2017 Status: COMPLETED Source: [place] 10:08 AM [facility] REPOSITORY HNO ID: [id number] Author: Lolita Garcia (Sw) Service: Care Management Author Type: Manager Of Information Type: Care Mgt Progress Note Filed: 10/27/2017 10:21 AM Note Text: CARE MANAGEMENT PROGRESS NOTE SERVICE DATE: 10/27/2017 SERVICE TIME: 10:08 AM LOS: 2 days Needs Prior to Discharge: Accepting Facility Per MD Leach, no holiday discharge anticipated. Per previous CM note, referral sent to [facility], awaiting response. Notified Warren, client onboarding analyst nurse, of discharge plans. Warren agreed to notify intake on to determine acceptance. If immediate [place] [phone]. Unit CM will follow up on and assess further needs. SIGNATURE: KEMAL Mcelroy PATIENT NAME: Faith Ghosh DATE: October 27, 2017 TIME: 10:08 AM PAGER/CONTACT #: [phone] PROGRESS Observed: 10/27/2017 Status: COMPLETED Source: [place] 9:50 AM [facility] REPOSITORY HNO ID: [id number] Author: Anne Fowler Service: Colorectal Author Type: Physician Type: Progress Notes Filed: 10/27/2017 9:51 AM Note Text: Fellow's history reviewed. Patient interviewed and examined. I have personally examined the patient and repeated the munoz components of the exam/history. The assessment and plan were formulated and discussed with the resident/fellow. See fellow's note for further details. Feeling well. No nausea or vomiting. No pain issues. Tolerating diet On exam: Abdomen soft, nontender, nondistended Ostomy pink, thin output Plan: Diet as tolerated Ostomy teaching Home tomorrow if still well and comfortable providing care for ostomy Anne Fowler MD NURSING PROG Observed: 10/26/2017 Status: COMPLETED Source: [place] 11:36 PM [facility] REPOSITORY HNO ID: [id number] Author: Rocio (Rn) STANLEY Helms Service: (none) Author Type: Registered Nurse Type: Nursing Progress Note Filed: 10/26/2017 11:38 PM Note Text: Nursing Progress Note Patient Name: Faith Ghosh [id number] Daily Note:[address] At [address] Nicole wants a bladder scan on this patient, 468 cc, patient said he did not have to void. mail caller notified. at 2301 patient voided 450, bladder scan 186. Dr. Nicole made aware. This note was completed by: Rocio Helms RN BASIC METABOLIC PANL Collected: 10/26/2017 Status: F Source: [place] 10:41 PM [facility] REPOSITORY TYPE CODE TESTS RESULT OUT OF REFERENCE UNITS RANGE LAB GLU 74-99 mg/dL High Glucose 116 Result Comment: The [place] [employer] (ADA) provides guidance for cutoff values for fasting glucose and random glucose. The ADA defines fasting as no caloric intake for at least 8 hours. Fas ting plasma glucose results between 100 to 125 mg/dL indicate increased risk for diabetes (prediabetes). Fasting plasma glucose results greater than or equal to 126 mg/dL meet the criteria for diagnosis of diabetes. In the absence of unequivocal hyperglycemia, results should be confirmed by repeat testing. In a patient with classic symptoms of hyperglycemia or hyperglycemic crisis, random plasma glucose results greater than or equal to 200 mg/dL meet the criteria for diagnosis of diabetes. Reference: Standards of Medical Care in Diabetes 2016, [place] [employer] Association. Diabetes Care. 2016.39(Suppl 1). LAB BUN 9-24 mg/dL BUN 11 LAB CRET 0.73-1.22 mg/dL Creatinine 0.96 LAB NA 136-144 mmol/L Sodium 142 LAB K 3.7-5.1 mmol/L Potassium 4.2 LAB CL 97-105 mmol/L Chloride 105 LAB CO2 22-30 mmol/L CO2 24 LAB AGAP 9-18 mmol/L Anion Gap 13 LAB CA 8.5-10.2 mg/dL Calcium, Total 9.0 LAB GFRAA eGFR- Amer. >60 LAB GFRNAA . eGFR-All Other Races >60 Result Comment: eGFR (Estimated GFR) Units of measure: mL/min/1.73 meters squared eGFR is derived from the reexpressed MDRD Study equation using the following parameters: serum creatinine, age, gender and race. The creatinine assay has been calibrated to be traceable to IDMT. An eGFR <60 mL/min/1.73m2 for >3 months is consistent with chronic kidney disease. Refer to KDOQI guidelines for clinical interpretation. In patients with unstable renal function, e.g. those with acute kidney injury, the eGFR may not accurately reflect actual GFR. Performed By: #### BMP, MG1, PHOS, SADIQ, CBCDIF #### [place] [id number] [place] [address] MAGNESIUM Collected: 10/26/2017 Status: F Source: [place] 10:41 [facility] REPOSITORY TYPE CODE TESTS RESULT OUT OF REFERENCE UNITS RANGE LAB MG 1.7-2.3 mg/dL Magnesium 2.2 Performed By: #### BMP, MG1, PHOS, SADIQ, CBCDIF #### [place] [address] PHOSPHORUS Collected: 10/26/2017 Status: F Source: [place] 10:41 [facility] REPOSITORY TYPE CODE TESTS RESULT OUT OF REFERENCE UNITS RANGE LAB PHOS 2.7-4.8 mg/dL Phosphorus 3.7 Performed By: #### BMP, MG1, PHOS, SADIQ, CBCDIF #### [place] [address] TROPONIN T Collected: 10/26/2017 Status: F Source: [place] 10:[address] [place] [address] REPOSITORY TYPE CODE TESTS RESULT OUT OF REFERENCE UNITS RANGE LAB TROPT 0.000-0.029 ng/mL Troponin T <0.010 Performed By: #### BMP, MG1, PHOS, SADIQ, CBCDIF #### [place] [address] CBC AND DIFFERENTIAL Collected: 10/26/2017 Status: F Source: [place] 10:41 [facility] REPOSITORY TYPE CODE TESTS RESULT OUT OF REFERENCE UNITS RANGE LAB WBC 3.70-11.00 k/uL WBC 7.59 LAB RBC 4.20-6.00 m/uL RBC 4.97 LAB HGB 13.0-17.0 g/dL Hemoglobin 14.4 LAB HCT 39.0-51.0 % Hematocrit 42.6 LAB MCV 80.0-100.0 fL MCV 85.7 LAB MCH 26.0-34.0 pG MCH 29.0 LAB MCHC 30.5-36.0 g/dL MCHC 33.8 LAB RDWCV 11.5-15.0 % RDW-CV 13.3 LAB PLTCT 150-400 k/uL Platelet Count 193 LAB MPV 9.0-12.7 fL MPV 10.7 LAB ANEUT % Neut% 57.3 LAB AANEUT 1.45-7.50 k/uL Abs Neut 4.33 LAB ALYMP % Lymph% 29.9 LAB AALYMP 1.00-4.00 k/uL Abs Lymph 2.27 LAB AMONO % [place]% 9.9 LAB AAMONO <0.87 k/uL Abs [place] 0.75 LAB AEOS % Eosin% 2.4 LAB AAEOS <0.46 k/uL Abs Eosin 0.18 LAB ABASO % Baso% 0.5 LAB AABASO <0.11 k/uL Abs Baso 0.04 LAB AUNRBC 0 /100 WBC NRBCs 0.0 LAB ABNRBC <0.01 k/uL Absolute nRBC <0.01 LAB DTYP DTYPE Auto Diff Performed By: #### BMP, MG1, PHOS, SADIQ, CBCDIF #### [facility] [address] [place] [id number] NURSING PROG Observed: 10/26/2017 Status: COMPLETED Source: [place] 7:44 PM [facility] REPOSITORY HNO ID: [id number] Author: Terri (Rn) STANLEY Landers Service: (none) Author Type: Registered Nurse Type: Nursing Progress Note Filed: 10/26/2017 7:58 PM Note Text: Nursing Progress Note Patient Name: Faith Ghosh Patient Location: H050 029/[id number] Daily Note:0950 Pt's post void bladder scan = 999cc (checked on 2 different scanners). Leory OVALLE notified. 1030 Order placed to straight cath x1 but pt just went to ostomy class on H51. Will straight cath after class. 1320 Pt voided 700cc at 1300. Pt straight cath'd for 1000cc at 1320. Eleonora OVALLE notified. 1830 Pt voided another 700cc and post void bladder scan = 410cc. Pt says he feels like he's emptying his bladder better now. CORS client onboarding analyst ([id number]) notified. This note was completed by: Terri Landers RN CASE MANAGEM Observed: 10/26/2017 Status: COMPLETED Source: [place] 3:43 PM [facility] REPOSITORY HNO ID: [id number] Author: Litzy Ovalle) STALNEY Cohen Service: Care Management Author Type: Registered Nurse Type: Care Mgt Progress Note Filed: 10/26/2017 3:52 PM Note Text: CARE MANAGEMENT PROGRESS NOTE SERVICE DATE: 10/26/2017 SERVICE TIME: 3:43 PM LOS: 1 day Needs Prior to Discharge: Other: See Comment (ACCEPTING HOME CARE AGENCY) [employer] check on: - Accepting home care - Referral sent to [phone] SIGNATURE: Litzy Cohen RN PATIENT NAME: Faith Ghosh DATE: October 26, 2017 TIME: 3:43 PM PAGER/CONTACT #: [phone] OPERATIVE NO Observed: 10/26/2017 Status: COMPLETED Source: [place] 3:20 PM [facility] REPOSITORY HNO ID: [id number] Author: Anne Fowler Service: Colorectal Author Type: Physician Type: Operative Report Filed: 10/26/2017 3:28 PM Note Text: Log ID:[id number] Surgery/Procedure Date:?10/25/2017 Incision/Procedure Start Time:?10:20 AM Incision Close/Procedure End Time:?12:10 PM? Surgeon(s) and Smasher Hand(s): Surgeon(s) and Role: ???* Anne Fowler - Primary ???* Maria Isabel Leach (Fel) - ?Fellow ? No Additional Staff? Procedures and Anesthesia: Procedure(s) and Anesthesia Type: ???* COLONOSCOPY - General ???* LAPAROSCOPY SURGICAL ILEOSTOMY NON-TUBE - General ? Stoma Type: Loop ileostomy ? Findings:? Colonoscopy normal to proximal transverse colon. Further passage of scope limited by tortuosity and prep Healthy, viable ileum ? Estimated Blood Loss:?Minimal? ? Specimens:?None ? Diagnosis Code(s):?Pre-Op Diagnosis Codes: ???* Pelvic floor dysfunction [M62.89] ???* Outlet dysfunction constipation [K59.02] ? Postop Diagnosis:?same ? Drains:?None ? Wound Classification: Class 2, operative wound clean-contaminated, ?gastrointestinal tract entered without significant spillage ? Complications: None History of Present Illness: The patient is a 57-year-old man with long-standing constipation. Evaluation demonstrated this to be both slow transit and related to outlet dysfunction. The patient was counseled regarding the nonoperative options available for treatment of these conditions, but he declines. He strongly desires fecal diversion alone as a means to restore his quality of life. He therefore now presents for laparoscopic diverting loop ileostomy. Concurrent colonoscopy is planned as well has complete colonoscopy has not previously been possible due to tortuosity and bowel prep. Operative Course: The patient was seen preoperatively, the risks, benefits and alternatives were discussed and informed consent was obtained. The patient was brought to the operating room where a timeout was performed during which the correct patient, operation and site were identified. They were positioned split leg on the operative table, Digital rectal exam was followed by colonoscope advancement to the proximal transverse colon. At this point further passage of the scope was unable to be performed due to tortuosity and the quality of the bowel prep precluding safe visualization. The patient's position was changed and pressure applied, but the scope would not advance further. All of the visible colon appeared healthy and normal The abdomen was then prepped and draped in the usual sterile manner. A 10 mm incision was made through the umbilicus at the site of an existing small umbilical hernia Wood trocar was placed and pneumoperitoneum achieved. Inspection did not demonstrate any other obvious abnormalities. A 5 mm port was placed through the planned ileostomy site. The distal ileum was oriented and held in place. Pneumoperitoneum was reduced and the trephine was created at the previously marked site. The ileum was brought up. Pneumoperitoneum was reachieved and inspection confirmed that the ostomy was appropriately oriented with no twists or turns of the bowel or mesentery. Pneumoperitoneum was reduced and ports removed. The umbilical port was closed with 0 Polysorb. Subcutaneous tissues were irrigated and the ileostomy was matured in a fashion of Coni over ileostomy shaista with 3-0 Polysorb sutures. The bowel was pink, healthy and viable. Instrument, needle and sponge counts were correct. I was present and scrubbed for the entire operation. There were no immediate complications. Anne Fowler M.D. CASE MGT INIT Observed: 10/26/2017 Status: COMPLETED Source: [facility] 2:52 PM [facility] REPOSITORY HNO ID: [id number] Author: Litzy (Rn) STANLEY Cohen Service: Care Management Author Type: Registered Nurse Type: Care Mgt Initial Assessment Filed: 10/26/2017 3:23 PM Note Text: CARE MANAGEMENT: ASSESSMENT AND DISCHARGE PLAN SERVICE DATE: 10/26/2017 SERVICE TIME: 2:52 PM PRIMARY CARE PHYSICIAN: Mackenzie Tejeda MD ADMISSION STATUS: Inpatient Needs Prior to Discharge: To Be Determined MEDICAL: Patient/Geophysical Support Specialist Stated Goals: To have reduction in pain To have reduction in symptoms To improve my functional status To return home to life as it was To be cured/healed Health Insurance: [employer] MEDICARE [employer] MEDICARE Health Issues Impacting Discharge Plan: Pelvic floor dysfunction; Outlet dysfunction constipation Last Admission Date: none Is this Within the Past 30 days? No Advance Directive: Current Advance Directive: Health Care Power of Legal Office Administrator In Chart: Yes Up To Date and Valid: Yes Health Literacy: 1. How often do you need to have someone help you when you read instructions, pamphlets, or other written material from your doctor or pharmacy? Never - 1 2. How confident are you filling out medical forms by yourself? Extremely - 1 If Patient scores > 3 on either question, the following interventions were put into place: Patient did not score > 3 FUNCTIONAL AND COGNITIVE/BEHAVIORAL PRIOR TO ADMISSION: Baseline Mental Status: Alert AND Oriented, Person, Place , Time and Situation Functional Status: Independent Does Patient Currently Receive Any Community Services or Home Care? None Psychiatry Equipment Prior to Admission: None Has the Patient Been in a Detention Facility in the Past 30 days? No SOCIAL: Living Arrangement: Home Lives With: Parent(s) Financial Resources: Disabled Primary Contact: Extended Emergency Contact Information Primary Emergency Contact: Maryam Whitaker Relation: Mother Secondary Emergency Contact: Azam Whitaker Mobile Relation: Step parent Supportive: Yes Other Important Patient Contacts: None Caregiver Assessment: Caregiver is ready, willing and able to meet the patient's needs as recommended by the inter-professional team? No Caregiver Needed Patient's transition needs and plan for meeting these needs: TBD Does the patient have an acute stroke diagnosis, or has the patient had a stroke during this admission? No Medication Adherence: I am convinced of the importance of my prescription medication: Agree completely - 0 I worry that my prescription medication will do more harm than good to me Disagree completely - 0 I feel financially burdened by my [id number] expenses for my prescription medication: Disagree completely - 0 Patient is categorized as low risk < 2 Are you interested in bedside delivery of your medications? No Food Concerns: In the Last Month, Have You had Trouble Getting Food? No trouble getting food During the Last Month, Have You Worried Whether Your Food Would Run Out Before You Had Enough Money to Buy More? No Is the Patient Psychosocially Complex? No ASSESSMENT AND PLAN: Medical Needs: None Psychosocial Needs: None FREEDOM OF CHOICE EXPLAINED: Yes Patient Financial Disclosure Provided The patient and/or family has been given the Provider List: Yes Provider List: Home Care Preference: [facility] POTENTIAL TRANSITION PLANS Home Care Per morning rounds report, anticipated discharge home with skilled home care for Ostomy care. Possible discharge home tomorrow. CM to bedside for introduction and to discuss discharge plans and needs. Anticipated discharge plan is home with skilled home care. Patient prefers [facility]. CM to send referral. Pt denies any new questions or concerns at this time. CM will continue to follow and update on discharge plans and needs. Upon discharge family will provide transport. SIGNATURE: Litzy Cohen RN PATIENT NAME: Faith Ghosh DATE: October 26, 2017 TIME: 2:52 PM PAGER/CONTACT #: [phone] 3:16 PM Per [place] [facility] [phone] facility do no provide skilled home care services. Patient informed, prefers [facility] home care. CM to send referral. PT ED Observed: 10/26/2017 Status: COMPLETED Source: [place] 2:50 PM [facility] REPOSITORY HNO ID: [id number] Author: Rossana Hernandez (Diet-T) Meg Service: Nutrition Therapy Author Type: Assembly Inspector Helper Type: Patient Education Filed: 10/26/2017 2:51 PM Note Text: NUTRITION PATIENT EDUCATION TOPIC: Lifestyle Changes: Diet PATIENT NAME: Faith Ghosh SERVICE DATE: October 26, 2017 Diagnosis: ADULT: Pelvic floor dysfunction, Outlet dysfunction constipation READINESS TO LEARN Motivation to Learn: Eager Family Support: Unable to assess - Family not present Instruction Provided to: Patient Factors Affecting Learning: None Physical Limitations Affecting Learning: None LEARNING RESPONSE Patient / Family Response: Verbalizes understanding of CORS/GI Soft Diet: Rationale behind diet restriction, foods allowed/to avoid, small frequent meals, chewing thoroughly, fluid recommendations, how long to continue on diet as well as how to transition off diet and(if applicable) dealing with potential problems (ostomy patients only). Method of Instruction: Group class instruction Written instruction - handouts Verbal instruction Instructional Aids Used: Slides Supplemental Material Provided to Patient: Nutrition Therapy instruction material: Eating Right and Avoiding Dehydration after Bowel Surgery ORS Recipes Referral (Recommendation): Nutrition - Inpatient and Nutrition - Outpatient MNT Billing Type: Routine Care/15 min 2 units Rossanafabio Weaver, DTR Pager: [phone] October 26, 2017 2:50 PM PT ED Observed: 10/26/2017 Status: COMPLETED Source: [place] 2:46 PM [facility] REPOSITORY HNO ID: [id number] Author: Litzy (Rn) STANLEY Berrios Service: Nursing Author Type: Registered Nurse Type: Patient Education Filed: 10/26/2017 2:48 PM Note Text: OSTOMY CLASS EDUCATION PROGRESS NOTE SERVICE DATE: October 26, 2017 SERVICE TIME: 10:00AM - 11:00AM PATIENT HISTORY/ASSESSMENT: Procedure(s): COLONOSCOPY LAPAROSCOPY SURGICAL ILEOSTOMY NON-TUBE TOPIC(S): GENERAL: Pouch emptying and general ostomy care NUTRITION GUIDELINES: GI soft diet AND dehydration HOME GOING MEDICATION: Reviewed lomotil, imodium, general pain medication use, and how to manage taking medications with an ostomy POST-OPERATIVE MANAGEMENT AT HOME: Signs and symptoms of infection and when to call the doctor reviewed SOCIAL TOPICS:Coping and support EDUCATION: COGNITIVE ABILITY: Alert and Oriented. MOTIVATION TO LEARN: Interested. BARRIERS TO LEARNING: appeared having difficulty understanding information. Repeated content t FAMILY SUPPORT: Unable to assess - Family not present EDUCATION TYPE: Group class instruction, verbal instructions, video, and written instructions - including the following handouts: ? Eating Right and Avoiding Dehydration after Bowel Surgery ? Oral Rehydration Solutions ? Patient Education After Your Discharge ? H50/51 Colorectal Surgery Education Videos List ? Support Groups List ? Lexicomp Patient Education: Loperamide (Imodium) ? Lexicomp Patient Education: Diphenoxylate and Atropine (Lomotil) RESPONSE TO EDUCATION: Education Response: Recommend Continued Instruction EDUCATION PROVIDED TO: Patient. This is a collaborative, interdisciplinary group education class for Colorectal patients and patients with new ostomies. This class taught with nursing, nutrition, and pharmacy. SIGNATURE: Litzy Berrios RN PATIENT NAME: Faith Ghosh DATE: October 26, 2017 TIME: 2:46 PM 2 PT ED Observed: 10/26/2017 Status: COMPLETED Source: [place] 2:41 PM [facility] [place] REPOSITORY [facility] ID: [id number] Author: Malou Wagner (Tech) Service: Nutrition Therapy Author Type: Assembly Inspector Helper Type: Patient Education Filed: 10/26/2017 2:43 PM Note Text: NUTRITION PATIENT EDUCATION TOPIC: Survival Skills: Diet, Lifestyle Changes: Diet and Health Promotion: Diet PATIENT NAME: Faith Ghosh SERVICE DATE: October 26, 2017 Diagnosis: ADULT: constipation READINESS TO LEARN Motivation to Learn: Eager Family Support: Unable to assess - Family not present Instruction Provided to: Patient Factors Affecting Learning: Literacy Factors: Suspect Difficulty Physical Limitations Affecting Learning: None LEARNING RESPONSE Patient / Family Response: Verbalizes understanding of CORS/GI Soft Diet: Rationale behind diet restriction, foods allowed/to avoid, small frequent meals, chewing thoroughly, fluid recommendations, how long to continue on diet as well as how to transition off diet and(if applicable) dealing with potential problems (ostomy patients only). Method of Instruction: Individual instruction Written instruction - handouts Verbal instruction Instructional Aids Used: NA Supplemental Material Provided to Patient: Nutrition Therapy instruction material: Eating Right and Avoiding Dehydration after Bowel Surgery ORS Recipes Referral (Recommendation): none MNT Billing Type: Routine Care/15 min 2 units Malou Wagner DTR Pager: October 26, 2017 2:42 PM NUTRITION Observed: 10/26/2017 Status: COMPLETED Source: [place] 2:40 PM [facility] ID: [id number] Author: Malou Alonzo (Artie) Bernard Service: Nutrition Therapy Author Type: Assembly Inspector Helper Type: Nutrition Filed: 10/26/2017 2:41 PM Note Text: NUTRITION THERAPY FOLLOW-UP NOTE SERVICE DATE: 10/26/2017 SERVICE TIME: 2:00 PM Anthropometrics: Height: 185.4 cm (6' 0.99) Current Weight: Weight: 100.2 kg (221 lb) Body mass index is 29.16 kg/m?. Loss of lean body mass/visual muscle wasting: no Admitting Diagnosis: Pelvic floor dysfunction [M62.89] Outlet dysfunction constipation [K59.02] Present Diet Order: Gastrointestinal GISoft Is the patient having any pain that is interfering with oral/enteral intake? No Allergies: ALLERGIES No Known Allergies Reason for Visit: Education needs: Patient education completed for: COR's diet Refer to patient education notes Nursing Admission Assessment Malnutrition Score Tool: 0 Plan of Care: Recommendation No problems noted at this time. Will screen again within 7 days Discharge Plan: Home on GI soft diet MNT Billing Type: Routine Care/15 min 2 units SIGNATURE: Malou Wagner DTR PATIENT NAME: Faith Ghosh DATE: October 26, 2017 TIME: 2:41 PM PAGER: PROGRESS Observed: 10/26/2017 Status: COMPLETED Source: [place] 9:07 AM [facility] ID: [id number] Author: Anne Fowler Service: Colorectal Author Type: Physician Type: Progress Notes Filed: 10/26/2017 1:09 PM Note Text: COLORECTAL SURGERY POSTOP PROGRESS NOTE SERVICE DATE: 10/26/2017 SERVICE TIME: 0800 POD #1 loop ileostomy Subjective INTERVAL HPI and PERTINENT ROS: Pain well controlled Stoma beginning to function MEDICATIONS: Current hospital medications: tamsulosin ER 0.4 mg cap(s) (FLOMAX) 0.4 mg ORAL AT BEDTIME [MAR Hold due to Transfer] lidocaine 10 mg/mL (1 %) 1-2 mg injection (XYLOCAINE) 0.1-0.2 mL INTRADERMAL PRN [MAR Hold due to Transfer] enoxaparin 40 mg injection (LOVENOX) 40 mg SUBCUTANEOUS q 24 H lactated ringers infusion 0-75 mL/hr INTRAVENOUS CONTINUOUS potassium chloride ER 20-40 mEq tab(s) (K-DUR, KLOR-CON) 20- 40 mEq ORAL PRN potassium chloride iv piggyback 20 mEq/100 mL 20 mEq INTRAVENOUS PRN magnesium sulfate iv piggyback 2 g in D5W 50 mL 2 g INTRAVENOUS PRN(NO DISPENSE) sodium phosphate 45 mmol in NaCl 0.9% 250 mL 45 mmol INTRAVENOUS PRN(NO DISPENSE) ondansetron (PF) 4 mg injection (ZOFRAN) 4 mg INTRAVENOUS q 6 H PRN acetaminophen 1,000 mg tab(s) (TYLENOL) 1,000 mg ORAL q 6 H ketorolac 15 mg injection (TORADOL) 15 mg INTRAVENOUS q 6 H [START ON 10/27/2017] ibuprofen 800 mg tab(s) (MOTRIN) 800 mg ORAL q 8 H gabapentin 300 mg cap(s) (NEURONTIN) 300 mg ORAL q 8 H diazePAM 2 mg tab(s) (VALIUM) 2 mg ORAL q 8 H PRN oxyCODONE IR 5-10 mg tab(s) (ROXICODONE) 5-10 mg ORAL q 4 H PRN HYDROmorphone 0.2 mg injection (DILAUDID) 0.2 mg INTRAVENOUS q 3 H PRN enoxaparin 40 mg injection (LOVENOX) 40 mg SUBCUTANEOUS DAILY lovastatin 20 mg tab(s) (MEVACOR) 20 mg ORAL AT BEDTIME lisinopril 2.5 mg tab(s) 2.5 mg ORAL DAILY benztropine 1 mg tab(s) (COGENTIN) 1 mg ORAL BID perphenazine 8 mg tab(s) 8 mg ORAL QID albuterol HFA 90 mcg/actuation 1-2 Puff (PROVENTIL HFA, VENTOLIN HFA) 1-2 Puff INHALATION QID PRN metoprolol tartrate (short acting) 25 mg tab(s) (LOPRESSOR) 25 mg ORAL q 12 H aspirin, enteric coated 81 mg tab(s) (ASPIRIN, ENTERIC COATED) 81 mg ORAL DAILY pantoprazole DR 40 mg tab(s) (PROTONIX) 40 mg ORAL DAILY (6 AM) dextrose 40 % 15 g 15 g ORAL PRN glucagon 1 mg injection (GLUCAGEN) 1 mg INTRAMUSCULAR PRN dextrose 50% in water 25 mL syringe 12.5 g INTRAVENOUS PRN insulin lispro injection (rapid acting) (HumaLOG) SUBCUTANEOUS w MEALS insulin lispro injection (rapid acting) (HumaLOG) SUBCUTANEOUS AT BEDTIME cloZAPine 100 mg tab(s) (CLOZARIL) 100 mg ORAL BID (0600/2100) Objective PHYSICAL EXAM: BP 132/85 Pulse 86 Temp 37.2 ?C (98.9 ?F) (Oral) Resp 16 Ht 185.4 cm (6' 0.99) Wt 100.2 kg (221 lb) SpO2 95% BMI 29.16 kg/m? Intake/Output Summary (Last 24 hours) at 10/26/17 0907 Last data filed at 10/26/17 0735 Gross per 24 hour Intake 2240 ml Output 1726 ml Net 514 ml Abdomen soft, non-tender and non-distended LABS: CBC, Coags, BMP, Mg, Phos Recent Labs 10/26/17 0043 10/25/17 1746 WBC 7.55 7.11 HB 14.6 15.0 HCT 41.9 45.2 PLT 179 181 NA 141 -- K 3.5* -- CHLOR 102 -- CO2 21* -- BUN 9 -- CREAT 0.86 -- GLUC 119* -- CA 8.4* -- MG 2.0 -- P 3.7 -- DATA: Diagnostic tests reviewed for today's visit: Most recent labs and imaging results. Assessment/Plan This is a 57-year-old male patient with schizoaffective disorder, HTN, HLD, COPD, GERD, DM2 and outlet obstruction constipation who is now POD1 following ileostomy creation. He is recovering well thus far and his stoma is beginning to function. Diet: advance to GIS as tolerated Resume home psych meds Multimodal pain control -minimize narcotics Routine postop care: Encourage ambulation, Incentive Spirometry Moreno: No Moreno Present Medication and Non-Pharmacologic VTE Prophylaxis/Anticoagulants Anticoagulant AND Antiplatelet Medications Start Dose Route Frequency Ordered Stop 10/26/17 0900 enoxaparin 40 mg injection (LOVENOX) (Surgical Moderate Risk ) 40 mg SUBCUTANEOUS DAILY 10/25/17 1453 -- 10/26/17 0900 aspirin, enteric coated 81 mg tab(s) (ASPIRIN, ENTERIC COATED) 81 mg ORAL DAILY 10/25/17 1219 -- 10/25/17 0826 [MAR Hold due to Transfer] enoxaparin 40 mg injection (LOVENOX) (MAR Hold due to Transfer since 10/25/17 1009) 40 mg SUBCUTANEOUS EVERY 24 HOURS 10/25/17 0826 -- 10/25/17 1500 pneumatic compression stockings ([place]) 10/25/17 1500 activity - mobilize patient ([place]) 10/25/17 0830 intermittent pneumatic compression VTE Prophylaxis: VTE prophylaxis appropriate Reason for Continuing Antibiotics: N/A *A review of daily goals, interventions, and plan of care with the multidisciplinary team and patient has been conducted. The patient?s concerns have been addressed and he/she agrees to proceed with today?s plan of care. SIGNATURE: Yecenia Johnson PA-C PATIENT NAME: Faith Ghosh DATE: October 26, 2017 TIME: 9:07 AM PAGER/CONTACT #: [phone] Fellow's history reviewed. Patient interviewed and examined. I have personally examined the patient and repeated the munoz components of the exam/history. The assessment and plan were formulated and discussed with the resident/fellow. See fellow's note for further details. Episode of bleeding from ostomy site controlled with suture yesterday Urinary retention overnight, now urinating without discomfort Otherwise feeling well, tolerating diet On exam: Abdomen soft, incisional tenderness Ostomy pink, bilious output to appliance Plan: Diet as tolerated Ostomy teaching Pain controlled Updated intraoperative findings and course Anne Fowler MD NURSING PROG Observed: 10/26/2017 Status: COMPLETED Source: [place] 3:30 AM [facility] [place] REPOSITORY O ID: [id number] Author: Joanne (Rn) STANLEY Harris Service: Colorectal Author Type: Registered Nurse Type: Nursing Progress Note Filed: 10/26/2017 9:16 AM Note Text: Nursing Progress Note Patient Name: Faith Ghosh Patient Location: H050 029/H050-29 Daily Note: Assessment unchanged. Patient denies any c/o pain. Patient voided 300 cc of urine and bladder scanned for 999 cc. Pt denies any bladder pressure or discomfort. On-call notified and instructed to continue to monitor pt and f/u with primary team in am. This note was completed by: Joanne Harris RN CBC AND DIFFERENTIAL Collected: 10/26/2017 Status: F Source: [place] 12:43 AM [facility] RE[facility] TYPE CODE TESTS RESULT OUT OF REFERENCE UNITS RANGE LAB WBC 3.70-11.00 k/uL WBC 7.55 LAB RBC 4.20-6.00 m/uL RBC 4.97 LAB HGB 13.0-17.0 g/dL Hemoglobin 14.6 LAB HCT 39.0-51.0 % Hematocrit 41.9 LAB MCV 80.0-100.0 fL MCV 84.3 LAB MCH 26.0-34.0 pG MCH 29.4 LAB MCHC 30.5-36.0 g/dL MCHC 34.8 LAB RDWCV 11.5-15.0 % RDW-CV 13.0 LAB PLTCT 150-400 k/uL Platelet Count 179 LAB MPV 9.0-12.7 fL MPV 11.0 LAB ANEUT % Neut% 66.1 LAB AANEUT 1.45-7.50 k/uL Abs Neut 4.97 LAB ALYMP % Lymph% 19.9 LAB AALYMP 1.00-4.00 k/uL Abs Lymph 1.50 LAB AMONO % Big Stone% 11.1 LAB AAMONO <0.87 k/uL Abs [place] 0.84 LAB AEOS % Eosin% 2.4 LAB AAEOS <0.46 k/uL Abs Eosin 0.18 LAB ABASO % Baso% 0.5 LAB AABASO <0.11 k/uL Abs Baso 0.04 LAB AUNRBC 0 /100 WBC NRBCs 0.0 LAB ABNRBC <0.01 k/uL Absolute nRBC <0.01 LAB DTYP DTYPE Auto Diff Performed By: #### CBCDIF, BMP, MG1, PHOS, SADIQ #### [facility] [address] [place], [place] [address] BASIC METABOLIC PANL Collected: 10/26/2017 Status: F Source: [place] 12:43 AM [facility] REPOS[facility]ORY TYPE CODE TESTS RESULT OUT OF REFERENCE UNITS RANGE LAB GLU 74-99 mg/dL High Glucose 119 Result Comment: The [place] [employer] (ADA) provides guidance for cutoff values for fasting glucose and random glucose. The ADA defines fasting as no caloric intake for at least 8 hours. Fas ting plasma glucose results between 100 to 125 mg/dL indicate increased risk for diabetes (prediabetes). Fasting plasma glucose results greater than or equal to 126 mg/dL meet the criteria for diagnosis of diabetes. In the absence of unequivocal hyperglycemia, results should be confirmed by repeat testing. In a patient with classic symptoms of hyperglycemia or hyperglycemic crisis, random plasma glucose results greater than or equal to 200 mg/dL meet the criteria for diagnosis of diabetes. Reference: Standards of Medical Care in Diabetes 2016, [place] [employer]. Diabetes Care. 2016.39(Suppl 1). LAB BUN 9-24 mg/dL BUN 9 LAB CRET 0.73-1.22 mg/dL Creatinine 0.86 LAB NA 136-144 mmol/L Sodium 141 LAB K 3.7-5.1 mmol/L Potassium Low 3.5 LAB CL 97-105 mmol/L Chloride 102 LAB CO2 22-30 mmol/L CO2 Low 21 LAB AGAP 9-18 mmol/L Anion Gap 18 LAB CA 8.5-10.2 mg/dL Calcium, Low Total 8.4 LAB GFRAA eGFR- Amer. >60 LAB GFRNAA . eGFR-All Other Races >60 Result Comment: eGFR (Estimated GFR) Units of measure: mL/min/1.73 meters squared eGFR is derived from the reexpressed MDRD Study equation using the following parameters: serum creatinine, age, gender and race. The creatinine assay has been calibrated to be traceable to IDMS. An eGFR <60 mL/min/1.73m2 for >3 months is consistent with chronic kidney disease. Refer to KDOQI guidelines for clinical interpretation. In patients with unstable renal function, e.g. those with acute kidney injury, the eGFR may not accurately reflect actual GFR. Performed By: #### CBCDIF, BMP, MG1, PHOS, SADIQ #### [facility] [address] [address] MAGNESIUM Collected: 10/26/2017 Status: F Source: [place] 12:43 AM [facility] REPOSITORY TYPE CODE TESTS RESULT OUT OF REFERENCE UNITS RANGE LAB MG 1.7-2.3 mg/dL Magnesium 2.0 Performed By: #### CBCDIF, BMP, MG1, PHOS, SADIQ #### [place] [address] PHOSPHORUS Collected: 10/26/2017 Status: F Source: [place] 12:43 AM [facility] REPOSIT[facility] TYPE CODE TESTS RESULT OUT OF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 Log ID: [id number] Surgery/Procedure Date: 10/25/2017 Incision/Procedure Start Time: 10:20 AM Incision Close/Procedure End Time: 12:10 PM Surgeon(s) and Smasher Hand(s): Surgeon(s) and Role: * Anne Fowler - Primary * Maria Isabel Leach (Fel) - Fellow No Additional Staff Procedures and Anesthesia: Procedure(s) and Anesthesia Type: * COLONOSCOPY - General * LAPAROSCOPY SURGICAL ILEOSTOMY NON-TUBE - General Stoma Type: Loop ileostomy Findings: proximal and distal ends verified with re-insufflation, proximal end Brooked. Colonoscopy to transverse colon Estimated Blood Loss: Minimal Specimens: None Diagnosis Code(s): Pre-Op Diagnosis Codes: * Pelvic floor dysfunction [M62.89] * Outlet dysfunction constipation [K59.02] Postop Diagnosis: same Drains: None Wound Classification: Class 2, operative wound clean-contaminated, gastrointestinal tract entered without significant spillage Complications: None SIGNATURE: Maria Isabel Leach MD PATIENT NAME: Faith Ghosh DATE: October 25, 2017 TIME: 12:12 PM PAGER/CONTACT #: NURSING PROG Observed: 10/25/2017 Status: COMPLETED Source: [place] 8:28 AM [facility] REPOSITORY HNO ID: [id number] Author: Linda OrtegaRn) STANLEY Mcguire Service: Nursing Author Type: Registered Nurse Type: Nursing Progress Note Filed: 10/25/2017 8:29 AM Note Text: PRE OP LEARNING ASSESSMENT PROCEDURE/SURGERY: SURGERY: pre op safety READINESS TO LEARN COGNITIVE ABILITY: Alert and oriented MOTIVATION TO LEARN: Eager FAMILY SUPPORT: High - Very involved in pt care PATIENT LEARNS BEST BY: Multiple Methods FACTORS AFFECTING LEARNING: None PHYSICAL LIMITATIONS AFFECTING LEARNING: None Electronically Signed By: Linda Mcguire RN In Department: [place] [id number] CONFIRM BLOOD TYPE Collected: 10/21/2017 Status: F Source: [place] 5:00 PM [facility] REPOSITORY TYPE CODE TESTS RESULT OUT OF REFERENCE UNITS RANGE LAB %ABR A ABO/RH(D) POSITIVE Performed By: #### CONABO #### [facility] [address] [place], [place] [address] PROGRESS Observed: 10/21/2017 Status: COMPLETED Source: [place] 4:57 PM [facility] REPOSITORY HNO ID: [id number] Author: Miriam Alanis Service: (none) Author Type: (none) Type: Progress Notes Filed: 10/21/2017 4:57 PM Note Text: Radiology Service Progress Note PATIENT NAME: Faith Ghosh DATE OF SERVICE: October 21, 2017 TIME: 4:57 PM PATIENT IDENTITY VERIFICATION COMPLETED USING TWO (2) METHODS: Patient confirmed name verbally and Date of . PATIENT GENDER DATA: Male PATIENT RELEVANT IMPLANT DATA REVIEWED: Not Applicable RADIOLOGY DEPARTMENT: General X-ray: Exam(s) Completed: Chest X-Ray PERIPHERAL IV DATA: Not applicable SIGNED BY: Miriam Alanis October 21, 2017 4:57 PM TYPE AND SCR (30D) Collected: 10/21/2017 Status: F Source: [place] 4:57 PM [facility] REPOSITORY TYPE CODE TESTS RESULT OUT OF REFERENCE UNITS RANGE LAB %ABR A ABO/RH(D) POSITIVE LAB % Antibody NEG Screen Performed By: #### [id number] #### [facility] [email or web address] [place], [place] [address] XR CHEST 2V FRONTAL/LAT Observed: 10/21/2017 Status: F Source: [place] 4:56 PM [facility] REPOSITORY * * *Final Report* * * DATE OF EXAM: Oct 21 2017 4:56PM JIX [id number] - XR CHEST 2V FRONTAL/LAT / PROCEDURE REASON: multiple diagnoses * * * * Physician Interpretation * * * * EXAMINATION: CHEST RADIOGRAPH (2 VIEW FRONTAL and LATERAL) Clinical History: Encounter for other preprocedural examination Other emphysema MQ: XC2_5 Comparison: None RESULT: Lines, tubes, and devices: None. Lungs and pleura: Lungs are clear no focal infiltrates or mass lesion. Mild degree of inflammatory airway thickening is not excluded along the medial aspect of the bases. No pleural effusion or pneumothorax. Cardiomediastinal silhouette: Heart is normal. Mediastinal and hilar contours are unremarkable. Other: There is mild generalized osteopenia. IMPRESSION: As above Facility Maintenance Technician: PSCTrent Transcribe Date/Time: Oct 21 2017 5:15P Dictated by : SUHAS DIXON MD This examination was interpreted and the report reviewed and electronically signed by: SUHAS DIXON MD on Oct 21 2017 5:21PM EST [id number] ECG COMPLETE W Observed: 10/21/2017 Status: F Source: [place] INTERPRETATION 4:48 PM [facility] REPOSITORY NAME : FAITH GHOSH PID : [id number] : 1960 Gender : Male Race : ORD : [id number] Procedure Date : Oct 21 2017 16:48:22 Edit Date : Oct 22 2017 14:28:42 Diagnosis:NORMAL SINUS RHYTHM LEFT AXIS DEVIATION PROLONGED QT INTERVAL OR TU FUSION, CONSIDER HYPOKALEMIA ABNORMAL ECG Confirmed by GEOVANI GUAJARDO M.D. ([id number]) on 10/22/2017 2:28:34 PM Ventricular Rate : 100 BPM Atrial Rate : 100 BPM P-R Interval : 160 ms QRS Duration : 104 ms Q-T Interval : 380 ms QTC Calculation(Bezet) : 490 ms P [place] : 41 degrees R [place] : -39 degrees T [place] : 45 degrees Test Reason : Location : 314 : J14 Overread By : GEOVANI GUAJARDO M.D. Edited By : GEOVANI GUAJARDO M.D. Referred By : NADIR PACE Acquired by : KACIE LIU PROGRESS Observed: 10/21/2017 Status: COMPLETED Source: [place] 4:16 PM [facility] REPOSIT[facility] HNO ID: [id number] Author: Malou OrtegaRn) STANLEY Koehler Service: (none) Author Type: Registered Nurse Type: Progress Notes Filed: 10/22/2017 8:37 AM Note Text: ANESTHESIA PRE-OPERATIVE ASSESSMENT (PACE) SERVICE DATE: 10/21/2017 SERVICE TIME: 4:16 ASSESSMENT AND PLAN: Faith Ghosh is a 57 year old male scheduled for Colonoscopy Laparoscopic ileostomy, possible open per Informed Consent in MAIN on 10/25/2017. PMH: Outlet Dysfunction constipation Denies problems with anesthesia HTN: Fair control with Tenormin, HCTZ, Lisinopril HPL: Lovastatin COPD/Emphysema: Controlled with Albuterol, singular Smoker: 1/2-1 ppd x 22 years GERD; Controlled with Pantoprazole T2DM: FBS 110-150 Metformin, [place] Auditory Hallucination: Treated with Clozapine Schizoaffective disorder: Treated with cogentin, Lorazepam [facility]: 3 FC: 2 METS: Climb a flight of stairs or walk up a hill (5.50 METs) Patient denies any chest pain or undue shortness of breath with the above physical activity. ADDITIONAL DISCUSSION WITH PATIENT: Discussed with patient the possibilities of invasive monitoring, blood loss or possible need for blood transfusion. Patient WILL accept blood products. BLOOD WORK/PRODUCTS ORDERED: Type and Screen , Con ABO HISTORY OF CHRONIC PAIN: No PAIN MANAGEMENT OPTIONS: Final pain management plan will be discussed on the day of surgery. ANESTHETIC OPTIONS: Final anesthesia management options will be discussed on day of surgery. PRE-OP PLAN ORDERED: Diabetes orders Patient Instructed: ? No solid food or non-clear liquids after midnight. Clear liquids allowed until two hours before scheduled arrival. ? Patient instructed to take the following medications with a sip of water: Tenormin, Clozapine, cogentin, lorazepam ? Diabetic instructions discussed. Vital Signs: There were no vitals taken for this visit. No weight on file for this encounter. Vital signs completed by: IMPACT Weight acquired: per HANDP. Height acquired: per HANDP Airway Exam: MOUTH OPENING/TMJ: Full jaw ROM MICROGNATHIA/OVERBITE: No MALLAMPATI SCORE is CLASS III UPPER LIP BITE TEST: Class I - Lower incisors can bite the upper lip above the michele line DENTITION: Chipped, loose, and/or missing - Missing multiple upper and lower teeth, Caps and/or crowns - upper incisors and Caps and/or crowns - lower incisors THYROMENTAL DIST: WNL SHORT NECK: No NECK CIRCUMFERENCE >40 cm: Neck Circumference measured at 43 cm NECK FLEX: Full ROM NECK EXTENSION: Full ROM AIRWAY HISTORY: No abnormal airway history ARKS AIRWAY DETAIL: N/A DATA: EKG READING: to be done 10/21/2017 OTHER TESTS: Chest X-ray: To be done 10/21/2017 Lab Value Units Date High Low HB 16.7 g/dL 10/21/2017 17.0 13.0 HCT 48.8 % 10/21/2017 51.0 39.0 WBC 7.58 k/uL 10/21/2017 11.00 3.70 PLT 201 k/uL 10/21/2017 400 150 NA 139 mmol/L 10/21/2017 144 136 K 4.1 mmol/L 10/21/2017 5.1 3.7 GLUC 154 mg/dL 10/21/2017 99 74 BUN 14 mg/dL 10/21/2017 24 9 CREAT 0.90 mg/dL 10/21/2017 1.22 0.73 PTSEC No results within date range. INR No results within date range. APTT No results within date range. ALT 34 U/L 10/21/2017 54 10 AST 19 U/L 10/21/2017 40 14 TBILI 0.9 mg/dL 10/21/2017 1.3 0.2 TSH 1.490 uU/mL 10/21/2017 5.500 0.400 Lab Value Units Date High Low HCGQT No results within date range. UHCG No results within date range. HCG, BODY* No results within date range. Lab Value Units Date High Low ABORHD A POSI* no uni* 10/21/2017 ABSCREEN NEG no uni* 10/21/2017 Patient accompanied by Step father Case Discussed with Dr Pace OPTIMIZATION STATUS: Patient optimization pending Labs IMPACT CXR PACE EKG PACE SIGNATURE: Malou Koehler RN PATIENT NAME: Faith Ghosh DATE: October 21, 2017 TIME: 4:16 PM PAGER/CONTACT #: Addendum Mushtaq Koehler RN 10/22/2017 CXR 10/21/2017 RESULT: Lines, tubes, and devices: ?None. Lungs and pleura: ?Lungs are clear no focal infiltrates or mass lesion. Mild degree of inflammatory airway thickening is not excluded along the medial aspect of the bases. No pleural effusion or pneumothorax. Cardiomediastinal silhouette: ?Heart is normal. Mediastinal and hilar contours are unremarkable. Other: ?There is mild generalized osteopenia. TANDS con to upal CNOV Observed: 10/21/2017 Status: COMPLETED Source: [place] 3:30 PM [facility] [place] REPOSITORY Office Visit (PSSCMN) FAITH GHOSH ([id number]) 1960 M Date Time Provider Department 10/21/17 3:30 PM [facility] During your visit today, we recorded the following information about you: Malou Koehler, RN, RN 10/22/2017 8:37 AM Addendum ANESTHESIA PRE-OPERATIVE ASSESSMENT (PACE) SERVICE DATE: 10/21/2017 SERVICE TIME: 4:16 ASSESSMENT AND PLAN: Faith Ghosh is a 57 year old male scheduled for Colonoscopy Laparoscopic ileostomy, possible open per Informed Consent in MAIN on 10/25/2017. PMH: Outlet Dysfunction constipation Denies problems with anesthesia HTN: Fair control with Tenormin, HCTZ, Lisinopril HPL: Lovastatin COPD/Emphysema: Controlled with Albuterol, singular Smoker: 1/2-1 ppd x 22 years GERD; Controlled with Pantoprazole T2DM: FBS 110-150 Metformin, [place] Auditory Hallucination: Treated with Clozapine Schizoaffective disorder: Treated with cogentin, Lorazepam [facility]: 3 FC: 2 METS: Climb a flight of stairs or walk up a hill (5.50 METs) Patient denies any chest pain or undue shortness of breath with the above physical activity. ADDITIONAL DISCUSSION WITH PATIENT: Discussed with patient the possibilities of invasive monitoring, blood loss or possible need for blood transfusion. Patient WILL accept blood products. BLOOD WORK/PRODUCTS ORDERED: Type and Screen , Con ABO HISTORY OF CHRONIC PAIN: No PAIN MANAGEMENT OPTIONS: Final pain management plan will be discussed on the day of surgery. ANESTHETIC OPTIONS: Final anesthesia management options will be discussed on day of surgery. PRE-OP PLAN ORDERED: Diabetes orders Patient Instructed: ? No solid food or non-clear liquids after midnight. Clear liquids allowed until two hours before scheduled arrival. ? Patient instructed to take the following medications with a sip of water: Tenormin, Clozapine, cogentin, lorazepam ? Diabetic instructions discussed. Vital Signs: There were no vitals taken for this visit. No weight on file for this encounter. Vital signs completed by: [facility] Weight acquired: per HANDP. Height acquired: per HANDP Airway Exam: MOUTH OPENING/TMJ: Full jaw ROM MICROGNATHIA/OVERBITE: No MALLAMPATI SCORE is CLASS III UPPER LIP BITE TEST: Class I - Lower incisors can bite the upper lip above the michele line DENTITION: Chipped, loose, and/or missing - Missing multiple upper and lower teeth, Caps and/or crowns - upper incisors and Caps and/or crowns - lower incisors THYROMENTAL DIST: WNL SHORT NECK: No NECK CIRCUMFERENCE >40 cm: Neck Circumference measured at 43 cm NECK FLEX: Full ROM NECK EXTENSION: Full ROM AIRWAY HISTORY: No abnormal airway history ARKS AIRWAY DETAIL: N/A DATA: EKG READING: to be done 10/21/2017 OTHER TESTS: Chest X-ray: To be done 10/21/2017 Lab Value Units Date High Low HB 16.7 g/dL 10/21/2017 17.0 13.0 HCT 48.8 % 10/21/2017 51.0 39.0 WBC 7.58 k/uL 10/21/2017 11.00 3.70 PLT 201 k/uL 10/21/2017 400 150 NA 139 mmol/L 10/21/2017 144 136 K 4.1 mmol/L 10/21/2017 5.1 3.7 GLUC 154 mg/dL 10/21/2017 99 74 BUN 14 mg/dL 10/21/2017 24 9 CREAT 0.90 mg/dL 10/21/2017 1.22 0.73 PTSEC No results within date range. INR No results within date range. APTT No results within date range. ALT 34 U/L 10/21/2017 54 10 AST 19 U/L 10/21/2017 40 14 TBILI 0.9 mg/dL 10/21/2017 1.3 0.2 TSH 1.490 uU/mL 10/21/2017 5.500 0.400 Lab Value Units Date High Low HCGQT No results within date range. UHCG No results within date range. HCG, BODY* No results within date range. Lab Value Units Date High Low ABORHD A POSI* no uni* 10/21/2017 ABSCREEN NEG no uni* 10/21/2017 Patient accompanied by Step father Case Discussed with Dr Pace OPTIMIZATION STATUS: Patient optimization pending Labs [facility] CXR PACE EKG PACE SIGNATURE: Malou Koehler RN PATIENT NAME: Faith Ghosh DATE: October 21, 2017 TIME: 4:16 PM PAGER/CONTACT #: Addendum MaricruzConi Zakia ANGEL 10/22/2017 CXR 10/21/2017 RESULT: Lines, tubes, and devices: ?None. Lungs and pleura: ?Lungs are clear no focal infiltrates or mass lesion. Mild degree of inflammatory airway thickening is not excluded along the medial aspect of the bases. No pleural effusion or pneumothorax. Cardiomediastinal silhouette: ?Heart is normal. Mediastinal and hilar contours are unremarkable. Other: ?There is mild generalized osteopenia. TANDS con to [facility] Referring Provider: ANNE FOWLER [[id number]] Allergies As of Date: 10/21/2017 (No Known Allergies) Date Reviewed: 10/21/2017 Reviewed by: Anne Fowler - Fully Assessed Primary Visit Diagnosis:Essential hypertension [I10] Other Visit Diagnoses:Blood per rectum [K62.5] Pre-op evaluation [Z01.818] Order(s):ECG COMPLETE W INTERPRETATION [ECG01] Order #: [id number] FUTURE CONFIRM BLOOD TYPE [SQCONABO] Order #: [id number] FUTURE TYPE + SCREEN,30 DAY [PQSSTG97] Order #: [id number] FUTURE Prescriptions as of 10/21/2017 Sig: PANTOPRAZOLE ORAL Take 40 mg by mouth once frederic* NIACIN ORAL Take 1 capsule by mouth once * METAMUCIL ORAL Take 1 tablet by mouth once d* ATENOLOL 25 MG TABLET Take 1 tablet by mouth once d* ALBUTEROL SULFATE HFA 90 MCG/* Inhale 1-2 Puffs as instructe* PEG 3350-ELECTROLYTES 236 GRA* Refer to printed patient inst* Patient not taking: Reported on 10/21/2017 NEOMYCIN 500 MG TABLET Take 2 tablets by mouth at 9p* Patient not taking: Reported on 10/21/2017 METRONIDAZOLE 500 MG TABLET Take 1 tablet by mouth at 9pm* Patient not taking: Reported on 10/21/2017 LINACLOTIDE 290 MCG CAPSULE Take 1 capsule by mouth once * B-12 DOTS ORAL Take 1 tablet by mouth once d* ASCORBIC ACID (VITAMIN C) 100* Take 100 mg by mouth once francois* CLOZAPINE 100 MG TABLET Take 100 mg by mouth once francois* HYDROCHLOROTHIAZIDE 50 MG TAB* Take 50 mg by mouth once frederic* BENZTROPINE 1 MG TABLET Take 1 mg by mouth twice frederic* MONTELUKAST 10 MG TABLET TAKE 1 TABLET BY MOUTH DAILY * MAGNESIUM OXIDE 500 MG TABLET Take 500 mg by mouth once francois* METFORMIN 1,000 MG TABLET Take 1,000 mg by mouth daily * JANUMET XR 50 MG-1,000 MG TAB* TAKE 1 TABLET BY MOUTH TWICE * LOVASTATIN 20 MG TABLET Take 1 tablet by mouth daily * OMEGA-3 ACID ETHYL ESTERS 1 G* Take 2 capsules by mouth twic* BLOOD-GLUCOSE METER KIT 1 Each as needed. One Touch M* BLOOD SUGAR DIAGNOSTIC STRIPS Test blood sugar(s) 2 times d* LANCETS 28 GAUGE Test once daily. Dx: E11.9 -* LISINOPRIL 2.5 MG TABLET Take 1 tablet by mouth once d* PERPHENAZINE 8 MG TABLET Take 1 tablet by mouth four t* LORAZEPAM 2 MG TABLET Take 1 tablet by mouth twice * ASPIRIN 81 MG TABLET,DELAYED * Take 1 tablet by mouth once d* Problem List As Of Date 10/21/2017 Noted Resolved Diabetes (HCC) [E11.9] INVALID FOR* More... Hypertension [I10] INVALID FOR* More... Hyperlipidemia [E78.5] INVALID FOR* More... Paranoid schizophrenia (HCC) [F20.0] INVALID FOR* More... COPD (chronic obstructive pulmonary disease) (H*INVALID FOR* More... Blood per rectum [K62.5] INVALID FOR* Constipation [K59.00] INVALID FOR* Outlet dysfunction constipation [K59.02] INVALID FOR* Pelvic floor dysfunction [M62.89] INVALID FOR* Encounter Status:Closed by MALOU KOEHLER on 10/21/17 Chart Close Cosign Required by: Nadir Pace[] HISTORY PHYSICAL Observed: 10/21/2017 Status: COMPLETED Source: [place] 2:37 PM [facility] [place] REPOSITORY HNO ID: [id number] Author: Aundrea Zacarias Service: (none) Author Type: Physician Type: HANDP Filed: 10/22/2017 6:52 AM Note Text: HISTORY AND PHYSICAL EXAMINATION (IMPACT) SERVICE DATE: 10/21/2017 SERVICE TIME: 2:39 PM PRIMARY CARE PHYSICIAN: Mackenzie Tejeda MD CHIEF COMPLAINT/HISTORY OF PRESENT ILLNESS: Mr. Ghosh is a 57 year old male referred to me for preoperative evaluation. My final recommendations will be communicated back to the requesting physician/surgeon by the way of the shared medical record. Referring Surgeon: Dr. Fowler Date of Surgery: 10/25/2017 Planned Surgery/Procedure: COLONOSCOPY Indication for Planned Surgery / Procedure: outlet obstruction constipation Per C[facility] SERVICE SPECIALIST in [facility] [place] failed Linzess 290mcg, Amitiza 24mcg, BID Miralax, Metamucil, dulcolax suppositories, and 500mg Mg. He also failed pelvic floor therapy (+dyssynergia on ARM.) The plan has been for fleets enemas q 2-3 days which are also not helpful. He describes severe overflow incontinence after taking weekly magnesium citrate. He currently has bms q 10-14 days following the mag citrate Refer to Assessment section for details of any comorbidities. HTN DM Hx drug use COPD Schizoaffective disorder on ativan, cogentin Patient is Able to Perform the Following Physical Activity: Climb a flight of stairs or walk up a hill (5.50 METs) Patient denies any chest pain or undue shortness of breath with the above physical activity. Significant Anesthesia Considerations: None. PAST MEDICAL/SURGICAL/FAMILY/SOCIAL HISTORY PAST MEDICAL HISTORY Diagnosis Date - Anxiety - Auditory hallucinations - Constipation - COPD (chronic obstructive pulmonary disease) (HCC) - Diabetes (HCC) - Hyperlipidemia - Hypertension PAST SURGICAL HISTORY Procedure Laterality Date - COLONOSCOP W/ OR W/O [facility] SPEC 08/19/2016 poor prep - BE ordered - COLONOSCOPY about 3-4 years ago - EXTRACTION ERUPTED TOOTH/EXR - KNEE SURGERY HX 1988 right FAMILY HISTORY Problem Relation Age of Onset - Diabetes Paternal Aunt SOCIAL HISTORYSocial History Marital status: Single Spouse name: Years of education: Number of children: Occupational History Occupation Employer Comment unemployed Social History Main Topics Smoking status: Current Every Day Smoker Packs/day: 0.50 Years: 25.00 Types: Cigarettes Smokeless tobacco: Never Used Alcohol use: No Comment: 2/month Drug use: No Sexual activity: No MEDICATIONS/ALLERGIES Current Outpatient Prescriptions: NIACIN ORAL Take 1 capsule by mouth once daily. Disp: Rfl: psyllium husk (METAMUCIL ORAL) Take 1 tablet by mouth once daily. Disp: Rfl: atenolol (TENORMIN) 25 mg tablet Take 1 tablet by mouth once daily. Disp: Rfl: linaclotide (LINZESS) 290 mcg cap Take 1 capsule by mouth once daily. Disp: Rfl: CYANOCOBALAMIN, VITAMIN B-12, (B-12 DOTS ORAL) Take 1 tablet by mouth once daily. Disp: Rfl: Ascorbic Acid (VITAMIN C) 100 mg tablet Take 100 mg by mouth once daily. Disp: Rfl: cloZAPine (CLOZARIL) 100 mg tablet Take 100 mg by mouth once daily. Two tablets daily Disp: Rfl: hydroCHLOROthiazide (HYDRODIURIL, ESIDRIX) 50 mg tablet Take 50 mg by mouth once daily. Disp: Rfl: benztropine (COGENTIN) 1 mg tablet Take 1 mg by mouth twice daily. Disp: Rfl: montelukast (SINGULAIR) 10 mg tablet TAKE 1 TABLET BY MOUTH DAILY AT BEDTIME. Disp: 90 tablet Rfl: 0 Magnesium Oxide 500 mg tab Take 500 mg by mouth once daily. Disp: Rfl: metFORMIN (GLUCOPHAGE) 1,000 mg tablet Take 1,000 mg by mouth daily with breakfast. Disp: Rfl: JANUMET XR 50-1,000 mg TM24 TAKE 1 TABLET BY MOUTH TWICE A DAY Disp: 168 tablet Rfl: 0 lovastatin (MEVACOR) 20 mg tablet Take 1 tablet by mouth daily at bedtime. Disp: 30 tablet Rfl: 12 omega-3 acid ethyl esters (LOVAZA) 1 gram capsule Take 2 capsules by mouth twice daily. Disp: 120 capsule Rfl: 11 Blood-Glucose Meter (ONETOUCH ULTRA2) monitoring kit 1 Each as needed. One Touch Meter Kit Diagnosis: Type 2 DM - Controlled E11.9 Test twice a day as directed, NO insulin Disp: 1 Each Rfl: 0 blood sugar diagnostic (ONETOUCH ULTRA TEST) test strip Test blood sugar(s) 2 times daily. Dx: Type 2 DM - Controlled E11.9 Insulin: No Disp: 50 Strip Rfl: 11 lancets (FREESTYLE LANCETS) 28 gauge misc Test once daily. Dx: E11.9 - Insulin - No Disp: 50 Each Rfl: 11 lisinopril 2.5 mg tablet Take 1 tablet by mouth once daily. Disp: 30 tablet Rfl: 11 perphenazine 8 mg tablet Take 1 tablet by mouth four times daily. Disp: Rfl: LORazepam (ATIVAN) 2 mg tab Take 1 tablet by mouth twice daily. Disp: Rfl: aspirin, enteric coated (ADULT LOW DOSE ASPIRIN) 81 mg EC tablet Take 1 tablet by mouth once daily. Disp: Rfl: 0 peg 3350-Electrolytes (GOLYTELY) 236-22.74-6.74 -5.86 gram suspension Refer to printed patient instructions that will be mailed to you. (Patient not taking: Reported on 10/21/2017 ) Disp: 1 Bottle Rfl: 0 neomycin 500 mg tablet Take 2 tablets by mouth at 9pm and take 2 tablets by mouth at 11pm the night before surgery. (Patient not taking: Reported on 10/21/2017 ) Disp: 4 tablet Rfl: 0 metroNIDAZOLE (FLAGYL) 500 mg tablet Take 1 tablet by mouth at 9pm and take 1 tablet by mouth at 11pm the night before surgery. (Patient not taking: Reported on 10/21/2017 ) Disp: 2 tablet Rfl: 0 No current facility-administered medications for this visit. ALLERGIES No Known Allergies REVIEW OF SYSTEMS General: No weight loss, malaise or fevers. 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 No neurological symptoms or problems. Respiratory: COPD Cardiovascular: Hypertension GI: constipation x 5 years. Takes Lactulose once a week to induce diarrhea : No history of UTI in past 6 weeks. No history of renal failure. Not currently on or requiring dialysis. No history of symptoms or problems. Endocrine: Diabetes Mellitus on oral agent Hematology: No history of bleeding or clotting disorder. No history of hematological symptoms or problems. Oncology: No history of CA metastasis, chemo within 30 days, or radiotherapy within 90 days. No history of oncological symptoms or problems. Psych: schizoaffective disorder Skin: skin damage on arms PHYSICAL EXAM VITALS: BP 124/92 Pulse 102 Temp (Src) 97.4 (Oral) Ht 6' 1 (1.85m) Wt 221 lb (100.2kg) SpO2 97% BMI 29.16 kg/(m2). General: Alert and oriented Skin: Normal color, no rash, no lesions. HEENT: EOM, pupils equal, round and reactive. Cardiovascular: Normal S1 AND S2, no rubs, murmurs or gallops. No JVD. Pulse regular. Lungs: Rhonchi, DEYANIRA Abdomen: Soft, non-tender, no rigidity. Extremities: No deformity, no edema or tenderness, no joint swelling or clubbing. Neurological: Normal cognition and motor skills. Pulses: Radial pulses; left 2+ / right 2+. ASSESSMENT Mr. Ghosh is a 57 year old male referred to me for preoperative evaluation. Patient has the following medical comorbidities which might affect the perioperative course: - COPD with mild Emphysema. - Type II Diabetes with no complications. Patient is on oral medications. - Hypertension, well controlled. - schizoaffective disorder Patient's RCRI (Revised Cardiac Risk Index: CAD/CHF/Stroke or TIA/SCr>2/DM on Insulin/High Risk Surgery) score is 0 and is at low risk for major adverse cardiac events in the perioperative period. Diagnostic tests reviewed for today's visit: PENDING No results for input(s): HBA1C, UALBCR, GLUC, K, NA, CHLOR, CO2, CREAT, BUN, ANION, CA, CHOL, HDL, LDL, TG in the last 6720 hours. No results found for: TSH PLAN/RECOMMENDATIONS CARDIAC: Patient is at optimal cardiac condition for scheduled surgery / procedure. PULMONARY: Patient is at optimal Pulmonary status for scheduled surgery / procedure. Patient is at increased risk for postoperative pulmonary complications. Advised patient to stop smoking. Suggest the following in the post-operative period: Continue bronchodilator medications, Aggressive bronchopulmonary hygiene and Early ambulation Following additional test(s) requested for risk assessment / evaluation prior to surgery: CXR ENDOCRINE: DIABETES: - Initiate [facility] Guidelines for perioperative diabetes management. Check finger stick glucose on the morning of surgery. - Patient has been instructed on Preoperative DM medication management. VASCULAR/ANTICOAGULATION: VTE prophylaxis as deemed appropriate by the surgical service. Patient is optimally prepared for surgery. Patient Instructions: As per patient instructions section. I have discussed the above recommendations with the patient in detail, in simon and lay terms, and provided a written summary of instructions as needed. We have discussed that no surgery is without risk, but that the goal of preoperative assessment is to optimize that risk, and that was clearly understood by the patient. I have given ample opportunity for the patient to ask questions, and answered all questions to their stated satisfaction. SIGNATURE: Aundrea Zacarias MD PATIENT NAME: Faith Ghosh DATE: October 21, 2017 TIME: 2:39 PM CBC, Coags, BMP, Mg, Phos Recent Labs 10/21/17 1341 WBC 7.58 HB 16.7 HCT 48.8 PLT 201 NA 139 K 4.1 CHLOR 98 CO2 24 BUN 14 CREAT 0.90 GLUC 154* CA 9.5 Liver Function, Amylase, AND Lipase Recent Labs 10/21/17 1341 TPROT 7.4 ALB 4.8 ALT 34 AST 19 ALKPHOS 63 TBILI 0.9 Labs are acceptable for surgery. RESULT: Lines, tubes, and devices: ?None. Lungs and pleura: ?Lungs are clear no focal infiltrates or mass lesion. Mild degree of inflammatory airway thickening is not excluded along the medial aspect of the bases. No pleural effusion or pneumothorax. Cardiomediastinal silhouette: ?Heart is normal. Mediastinal and hilar contours are unremarkable. Other: ?There is mild generalized osteopenia. Labs, XRAY of chest are acceptable for surgery. 6:52 AM October 22, 2017 CNOV Observed: 10/21/2017 Status: COMPLETED Source: [place] 2:15 PM [facility] REPOSITORY Office Visit ([facility]) FAITH GHOSH ([id number]) 1960 M Date Time Provider Department 10/21/17 2:15 PM AUNDREA ZACARIAS [facility] During your visit today, we recorded the following information about you: Temperature Pulse Blood pressure Weight 97.4 degrees 102/minute 124/92 100.2 kg Height 1.854 m Aundrea Zacarias MD 10/21/2017 3:03 PM Signed Faith Ghosh is a 57 year old male here today for visit in [facility] Referring Surgeon: Dr. Fowler Date of Surgery: 10/25/2017 Planned Surgery/Procedure: COLONOSCOPY Allergies have been reviewed and verified. They include the following: Patient has no known allergies. Social History Substance Use Topics - Smoking status: Current Every Day Smoker Packs/day: 0.50 Years: 25.00 Types: Cigarettes - Smokeless tobacco: Never Used - Alcohol use No Comment: 2/month Medications reviewed and updated: Yes Allison Zacarias MD 10/22/2017 6:52 AM Addendum HISTORY AND PHYSICAL EXAMINATION (IMPACT) SERVICE DATE: 10/21/2017 SERVICE TIME: 2:39 PM PRIMARY CARE PHYSICIAN: Mackenzie Tejeda MD CHIEF COMPLAINT/HISTORY OF PRESENT ILLNESS: Mr. Ghosh is a 57 year old male referred to me for preoperative evaluation. My final recommendations will be communicated back to the requesting physician/surgeon by the way of the shared medical record. Referring Surgeon: Dr. Fowler Date of Surgery: 10/25/2017 Planned Surgery/Procedure: COLONOSCOPY Indication for Planned Surgery / Procedure: outlet obstruction constipation Per CUSTOMER SERVICE SPECIALIST in [facility] [place] failed Linzess 290mcg, Amitiza 24mcg, BID Miralax, Metamucil, dulcolax suppositories, and 500mg Mg. He also failed pelvic floor therapy (+dyssynergia on ARM.) The plan has been for fleets enemas q 2-3 days which are also not helpful. He describes severe overflow incontinence after taking weekly magnesium citrate. He currently has bms q 10- 14 days following the mag citrate Refer to Assessment section for details of any comorbidities. HTN DM Hx drug use COPD Schizoaffective disorder on ativan, cogentin Patient is Able to Perform the Following Physical Activity: Climb a flight of stairs or walk up a hill (5.50 METs) Patient denies any chest pain or undue shortness of breath with the above physical activity. Significant Anesthesia Considerations: None. PAST MEDICAL/SURGICAL/FAMILY/SOCIAL HISTORY PAST MEDICAL HISTORY Diagnosis Date - Anxiety - Auditory hallucinations - Constipation - COPD (chronic obstructive pulmonary disease) (HCC) - Diabetes (HCC) - Hyperlipidemia - Hypertension PAST SURGICAL HISTORY Procedure Laterality Date - COLONOSCOP W/ OR W/O [facility] SPEC 08/19/2016 poor prep - BE ordered - COLONOSCOPY about 3-4 years ago - EXTRACTION ERUPTED TOOTH/EXR - KNEE SURGERY HX 1988 right FAMILY HISTORY Problem Relation Age of Onset - Diabetes Paternal Aunt SOCIAL HISTORYSocial History Marital status: Single Spouse name: Years of education: Number of children: Occupational History Occupation Employer Comment unemployed Social History Main Topics Smoking status: Current Every Day Smoker Packs/day: 0.50 Years: 25.00 Types: Cigarettes Smokeless tobacco: Never Used Alcohol use: No Comment: 2/month Drug use: No Sexual activity: No MEDICATIONS/ALLERGIES Current Outpatient Prescriptions: NIACIN ORAL Take 1 capsule by mouth once daily. Disp: Rfl: psyllium husk (METAMUCIL ORAL) Take 1 tablet by mouth once daily. Disp: Rfl: atenolol (TENORMIN) 25 mg tablet Take 1 tablet by mouth once daily. Disp: Rfl: linaclotide (LINZESS) 290 mcg cap Take 1 capsule by mouth once daily. Disp: Rfl: CYANOCOBALAMIN, VITAMIN B-12, (B-12 DOTS ORAL) Take 1 tablet by mouth once daily. Disp: Rfl: Ascorbic Acid (VITAMIN C) 100 mg tablet Take 100 mg by mouth once daily. Disp: Rfl: cloZAPine (CLOZARIL) 100 mg tablet Take 100 mg by mouth once daily. Two tablets daily Disp: Rfl: hydroCHLOROthiazide (HYDRODIURIL, ESIDRIX) 50 mg tablet Take 50 mg by mouth once daily. Disp: Rfl: benztropine (COGENTIN) 1 mg tablet Take 1 mg by mouth twice daily. Disp: Rfl: montelukast (SINGULAIR) 10 mg tablet TAKE 1 TABLET BY MOUTH DAILY AT BEDTIME. Disp: 90 tablet Rfl: 0 Magnesium Oxide 500 mg tab Take 500 mg by mouth once daily. Disp: Rfl: metFORMIN (GLUCOPHAGE) 1,000 mg tablet Take 1,000 mg by mouth daily with breakfast. Disp: Rfl: JANUMET XR 50-1,000 mg TM24 TAKE 1 TABLET BY MOUTH TWICE A DAY Disp: 168 tablet Rfl: 0 lovastatin (MEVACOR) 20 mg tablet Take 1 tablet by mouth daily at bedtime. Disp: 30 tablet Rfl: 12 omega-3 acid ethyl esters (LOVAZA) 1 gram capsule Take 2 capsules by mouth twice daily. Disp: 120 capsule Rfl: 11 Blood-Glucose Meter (ONETOUCH ULTRA2) monitoring kit 1 Each as needed. One Touch Meter Kit Diagnosis: Type 2 DM - Controlled E11.9 Test twice a day as directed, NO insulin Disp: 1 Each Rfl: 0 blood sugar diagnostic (ONETOUCH ULTRA TEST) test strip Test blood sugar(s) 2 times daily. Dx: Type 2 DM - Controlled E11.9 Insulin: No Disp: 50 Strip Rfl: 11 lancets (FREESTYLE LANCETS) 28 gauge misc Test once daily. Dx: E11.9 - Insulin - No Disp: 50 Each Rfl: 11 lisinopril 2.5 mg tablet Take 1 tablet by mouth once daily. Disp: 30 tablet Rfl: 11 perphenazine 8 mg tablet Take 1 tablet by mouth four times daily. Disp: Rfl: LORazepam (ATIVAN) 2 mg tab Take 1 tablet by mouth twice daily. Disp: Rfl: aspirin, enteric coated (ADULT LOW DOSE ASPIRIN) 81 mg EC tablet Take 1 tablet by mouth once daily. Disp: Rfl: 0 peg 3350-Electrolytes (GOLYTELY) 236-22.74-6.74 -5.86 gram suspension Refer to printed patient instructions that will be mailed to you. (Patient not taking: Reported on 10/21/2017 ) Disp: 1 Bottle Rfl: 0 neomycin 500 mg tablet Take 2 tablets by mouth at 9pm and take 2 tablets by mouth at 11pm the night before surgery. (Patient not taking: Reported on 10/21/2017 ) Disp: 4 tablet Rfl: 0 metroNIDAZOLE (FLAGYL) 500 mg tablet Take 1 tablet by mouth at 9pm and take 1 tablet by mouth at 11pm the night before surgery. (Patient not taking: Reported on 10/21/2017 ) Disp: 2 tablet Rfl: 0 No current facility-administered medications for this visit. ALLERGIES No Known Allergies REVIEW OF SYSTEMS General: No weight loss, malaise or fevers. 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 No neurological symptoms or problems. Respiratory: COPD Cardiovascular: Hypertension GI: constipation x 5 years. Takes Lactulose once a week to induce diarrhea : No history of UTI in past 6 weeks. No history of renal failure. Not currently on or requiring dialysis. No history of symptoms or problems. Endocrine: Diabetes Mellitus on oral agent Hematology: No history of bleeding or clotting disorder. No history of hematological symptoms or problems. Oncology: No history of CA metastasis, chemo within 30 days, or radiotherapy within 90 days. No history of oncological symptoms or problems. Psych: schizoaffective disorder Skin: skin damage on arms PHYSICAL EXAM VITALS: BP 124/92 Pulse 102 Temp (Src) 97.4 (Oral) Ht 6' 1 (1.85m) Wt 221 lb (100.2kg) SpO2 97% BMI 29.16 kg/(m2). General: Alert and oriented Skin: Normal color, no rash, no lesions. HEENT: EOM, pupils equal, round and reactive. Cardiovascular: Normal S1 AND S2, no rubs, murmurs or gallops. No JVD. Pulse regular. Lungs: Rhonchi, DEYANIRA Abdomen: Soft, non-tender, no rigidity. Extremities: No deformity, no edema or tenderness, no joint swelling or clubbing. Neurological: Normal cognition and motor skills. Pulses: Radial pulses; left 2+ / right 2+. ASSESSMENT Mr. Ghosh is a 57 year old male referred to me for preoperative evaluation. Patient has the following medical comorbidities which might affect the perioperative course: - COPD with mild Emphysema. - Type II Diabetes with no complications. Patient is on oral medications. - Hypertension, well controlled. - schizoaffective disorder Patient's RCRI (Revised Cardiac Risk Index: CAD/CHF/Stroke or TIA/SCr>2/DM on Insulin/High Risk Surgery) score is 0 and is at low risk for major adverse cardiac events in the perioperative period. Diagnostic tests reviewed for today's visit: PENDING No results for input(s): HBA1C, UALBCR, GLUC, K, NA, CHLOR, CO2, CREAT, BUN, ANION, CA, CHOL, HDL, LDL, TG in the last 6720 hours. No results found for: TSH PLAN/RECOMMENDATIONS CARDIAC: Patient is at optimal cardiac condition for scheduled surgery / procedure. PULMONARY: Patient is at optimal Pulmonary status for scheduled surgery / procedure. Patient is at increased risk for postoperative pulmonary complications. Advised patient to stop smoking. Suggest the following in the post-operative period: Continue bronchodilator medications, Aggressive bronchopulmonary hygiene and Early ambulation Following additional test(s) requested for risk assessment / evaluation prior to surgery: CXR ENDOCRINE: DIABETES: - Initiate [facility] Guidelines for perioperative diabetes management. Check finger stick glucose on the morning of surgery. - Patient has been instructed on Preoperative DM medication management. VASCULAR/ANTICOAGULATION: VTE prophylaxis as deemed appropriate by the surgical service. Patient is optimally prepared for surgery. Patient Instructions: As per patient instructions section. I have discussed the above recommendations with the patient in detail, in simon and lay terms, and provided a written summary of instructions as needed. We have discussed that no surgery is without risk, but that the goal of preoperative assessment is to optimize that risk, and that was clearly understood by the patient. I have given ample opportunity for the patient to ask questions, and answered all questions to their stated satisfaction. SIGNATURE: Aundrea Zacarias MD PATIENT NAME: Faith Ghosh DATE: October 21, 2017 TIME: 2:39 PM CBC, Coags, BMP, Mg, Phos Recent Labs 10/21/17 1341 WBC 7.58 HB 16.7 HCT 48.8 PLT 201 NA 139 K 4.1 CHLOR 98 CO2 24 BUN 14 CREAT 0.90 GLUC 154* CA 9.5 Liver Function, Amylase, AND Lipase Recent Labs 10/21/17 1341 TPROT 7.4 ALB 4.8 ALT 34 AST 19 ALKPHOS 63 TBILI 0.9 Labs are acceptable for surgery. RESULT: Lines, tubes, and devices: ?None. Lungs and pleura: ?Lungs are clear no focal infiltrates or mass lesion. Mild degree of inflammatory airway thickening is not excluded along the medial aspect of the bases. No pleural effusion or pneumothorax. Cardiomediastinal silhouette: ?Heart is normal. Mediastinal and hilar contours are unremarkable. Other: ?There is mild generalized osteopenia. Labs, XRAY of chest are acceptable for surgery. 6:52 AM October 22, 2017 Aundrea Zacarias MD 10/21/2017 3:01 PM Signed [facility] Patient [facility] (this [facility] second floor to get a chest xray) FOOD INSTRUCTIONS: NO solid food or non-clear liquids for 8 hours prior to the arrival time for your surgery. Unless you are instructed otherwise, you are allowed to drink up to 12 ounces of clear liquids (e.g. water, black tea/coffee, fruit juice without pulp, Raj Tiffany, etc.) up until 2 hours prior to the arrival time for surgery. MEDICATION INSTRUCTIONS: Prior to Surgery: Do not take the following medications for 7 days prior to surgery: - any NSAID's (e.g. Motrin, Aleve, Arthrotec, Naproxen,etc) - any herbal preparations - Aspirin or aspirin containing products Do not take any Vitamin E / multivitamins for 10-14 days before surgery You are allowed to take Tylenol if needed until the day of surgery. Please bring your inhalers and or CPAP/BiPAP machine and mask when you come for your surgery. MEDICATION INSTRUCTIONS: Day/Morning of Surgery: The following medications should be taken with sips of water: Atenolol, Cogentin, Clozaril, Ativan, Perphenazine, and if needed, use your Proventil inhailer DIABETES MANAGEMENT INSTRUCTIONS: Eat a usual diet until the day prior to surgery unless indicated by your surgeon/physician. If your blood sugar is below 70 mg/dl at any time, treat with ? cup of apple juice or raj tiffany, or 4 glucose tabs or 1 tube of oral glucose gel. MEDICATION INSTRUCTIONS: Prior to Surgery: ? Continue all diabetic pills as scheduled including the evening prior to surgery. MEDICATION INSTRUCTIONS: Day/Morning of Surgery: ? Do not take your Diabetic pills. If you have any questions or concerns regarding today's visit please do not hesitate to contact the [facility] at [phone] or [phone], ext [phone]. Signature: Aundrea Zacarias MD Date: October 21, 2017 Referring Provider: ANNE FOWLER [[id number]] Allergies As of Date: 10/21/2017 (No Known Allergies) Date Reviewed: 10/21/2017 Reviewed by: Anne Fowler - Fully Assessed Primary Visit Diagnosis:Pre-operative examination [Z01.818] Other Visit Diagnoses:Outlet dysfunction constipation [K59.02] Other emphysema (HCC) [J43.8] Type 2 diabetes mellitus without complication, without long-term current use of insulin (HCC) [E11.9] Essential hypertension [I10] Order(s):atenolol (TENORMIN) 25 mg tabletTake 1 tablet by mouth once daily.Disp: Rfl: albuterol HFA (PROVENTIL HFA) 90 mcg/actuation inhalerInhale 1-2 Puffs as instructed four times daily as needed for Wheezing/Shortness of Breath.Disp: Rfl: XR CHEST 2V FRONTAL/LAT [[id number]] Order #: [id number] FUTURE Prescriptions as of 10/21/2017 Sig: NIACIN ORAL Take 1 capsule by mouth once * METAMUCIL ORAL Take 1 tablet by mouth once d* ATENOLOL 25 MG TABLET Take 1 tablet by mouth once d* LINACLOTIDE 290 MCG CAPSULE Take 1 capsule by mouth once * B-12 DOTS ORAL Take 1 tablet by mouth once d* ASCORBIC ACID (VITAMIN C) 100* Take 100 mg by mouth once francois* CLOZAPINE 100 MG TABLET Take 100 mg by mouth once francois* HYDROCHLOROTHIAZIDE 50 MG TAB* Take 50 mg by mouth once frederic* BENZTROPINE 1 MG TABLET Take 1 mg by mouth twice frederic* MONTELUKAST 10 MG TABLET TAKE 1 TABLET BY MOUTH DAILY * MAGNESIUM OXIDE 500 MG TABLET Take 500 mg by mouth once francois* METFORMIN 1,000 MG TABLET Take 1,000 mg by mouth daily * JANUMET XR 50 MG-1,000 MG TAB* TAKE 1 TABLET BY MOUTH TWICE * LOVASTATIN 20 MG TABLET Take 1 tablet by mouth daily * OMEGA-3 ACID ETHYL ESTERS 1 G* Take 2 capsules by mouth twic* BLOOD-GLUCOSE METER KIT 1 Each as needed. One Touch M* BLOOD SUGAR DIAGNOSTIC STRIPS Test blood sugar(s) 2 times d* LANCETS 28 GAUGE Test once daily. Dx: E11.9 -* LISINOPRIL 2.5 MG TABLET Take 1 tablet by mouth once d* PERPHENAZINE 8 MG TABLET Take 1 tablet by mouth four t* LORAZEPAM 2 MG TABLET Take 1 tablet by mouth twice * ASPIRIN 81 MG TABLET,DELAYED * Take 1 tablet by mouth once d* ALBUTEROL SULFATE HFA 90 MCG/* Inhale 1-2 Puffs as instructe* PEG 3350-ELECTROLYTES 236 GRA* Refer to printed patient inst* Patient not taking: Reported on 10/21/2017 NEOMYCIN 500 MG TABLET Take 2 tablets by mouth at 9p* Patient not taking: Reported on 10/21/2017 METRONIDAZOLE 500 MG TABLET Take 1 tablet by mouth at 9pm* Patient not taking: Reported on 10/21/2017 Problem List As Of Date 10/21/2017 Noted Resolved Diabetes (HCC) [E11.9] INVALID FOR* More... Hypertension [I10] INVALID FOR* More... Hyperlipidemia [E78.5] INVALID FOR* More... Paranoid schizophrenia (HCC) [F20.0] INVALID FOR* More... COPD (chronic obstructive pulmonary disease) (H*INVALID FOR* More... Blood per rectum [K62.5] INVALID FOR* Constipation [K59.00] INVALID FOR* Outlet dysfunction constipation [K59.02] INVALID FOR* Pelvic floor dysfunction [M62.89] INVALID FOR* Other instructions from your clinician: [facility] Patient Instructions for Surgery Go to desk A 21 (this building second floor to get a chest xray) FOOD INSTRUCTIONS: NO solid food or non-clear liquids for 8 hours prior to the arrival time for your surgery. Unless you are instructed otherwise, you are allowed to drink up to 12 ounces of clear liquids (e.g. water, black tea/coffee, fruit juice without pulp, Raj Tiffany, etc.) up until 2 hours prior to the arrival time for surgery. MEDICATION INSTRUCTIONS: Prior to Surgery: Do not take the following medications for 7 days prior to surgery: - any NSAID's (e.g. Motrin, Aleve, Arthrotec, Naproxen,etc) - any herbal preparations - Aspirin or aspirin containing products Do not take any Vitamin E / multivitamins for 10-14 days before surgery You are allowed to take Tylenol if needed until the day of surgery. Please bring your inhalers and or CPAP/BiPAP machine and mask when you come for your surgery. MEDICATION INSTRUCTIONS: Day/Morning of Surgery: The following medications should be taken with sips of water: Atenolol, Cogentin, Clozaril, Ativan, Perphenazine, and if needed, use your Proventil inhailer DIABETES MANAGEMENT INSTRUCTIONS: Eat a usual diet until the day prior to surgery unless indicated by your surgeon/physician. If your blood sugar is below 70 mg/dl at any time, treat with ? cup of apple juice or raj tiffany, or 4 glucose tabs or 1 tube of oral glucose gel. MEDICATION INSTRUCTIONS: Prior to Surgery: ? Continue all diabetic pills as scheduled including the evening prior to surgery. MEDICATION INSTRUCTIONS: Day/Morning of Surgery: ? Do not take your Diabetic pills. If you have any questions or concerns regarding today's visit please do not hesitate to contact the [facility] at [phone] or [phone], ext [phone]. Signature: Aundrea Zacarias MD Date: October 21, 2017 Prescriptions ordered this encounter Disp Refills Start End ATENOLOL 25 MG TABLET 10/21/2017 Class: Med Update Cmt: Maximum Refills Reached Route: ORAL Sig: Take 1 tablet by mouth once daily. ALBUTEROL SULFATE HFA 90 MCG/ACTUATI* 10/21/2017 Class: Med Update Route: INHALATION Sig: Inhale 1-2 Puffs as instructed four times daily as needed for Wheezing/Shortness of Breath. Medications Discontinued During This Encounter Radiopaque PVC Markers-Barium (SITZM* 1 ca* 0 08/12/2017 10/21/2017 Class: Print RX Sig: Take Capsule on Wednesday You will have x-rays on Wednesday, Wednesday and Wednesday Do not take laxatives during this exam Disc: Course of therapy completed polyethylene glycol 3350 (MIRALAX) 1* 1 Hardeep* 3 06/06/2016 10/21/2017 Route: ORAL Sig: Take 17 g by mouth once daily. Patient taking differently: Take 17 g by mouth twice daily. Disc: Discontinued by Patient pantoprazole DR (PROTONIX) 40 mg tab* 10/21/2017 Class: Historical Med Route: ORAL Sig: Take 40 mg by mouth once daily. Disc: Discontinued by Patient ot-YU-NY-Ic-Xfk-Afjwakn-Lutein (CENT* 0 04/02/2015 10/21/2017 Class: Historical Med Route: ORAL Sig: Take 1 tablet by mouth once daily. Disc: Discontinued by Patient lubiprostone (AMITIZA) 24 mcg capsule 60 c* 2 05/04/2017 10/21/2017 Route: ORAL Sig: Take 1 capsule by mouth twice daily with meals. Disc: Discontinued by Patient KELP ORAL 10/21/2017 Class: Historical Med Route: ORAL Sig: Take by mouth. Disc: Discontinued by Patient hydrOXYzine pamoate (VISTARIL) 50 mg* 0 04/02/2015 10/21/2017 Class: Historical Med Route: ORAL Sig: Take 1 capsule by mouth three times daily as needed. Disc: Discontinued by Patient DOCOSAHEXANOIC ACID/EPA (FISH OIL OR* 10/21/2017 Class: Historical Med Route: ORAL Sig: Take 1 capsule by mouth once daily. Disc: Duplicate Entry atenolol (TENORMIN) 25 mg tablet 60 t* 12 11/18/2015 10/21/2017 Cmt: Maximum Refills Reached Route: ORAL Sig: Take 1 tablet by mouth twice daily. Patient taking differently: Take 25 mg by mouth once daily. Disc: Reason for discontinue is not on file. Encounter Status:Closed by AUNDREA ZACARIAS MD on 10/21/17 PROGRESS Observed: 10/21/2017 Status: COMPLETED Source: [place] 1:47 PM [facility] HNO ID: [id number] Author: Aundrea Zacarias Service: (none) Author Type: Physician Type: Progress Notes Filed: 10/21/2017 3:03 PM Note Text: Faith Ghosh is a 57 year old male here today for visit in [place] Referring Surgeon: Dr. Fowler Date of Surgery: 10/25/2017 Planned Surgery/Procedure: COLONOSCOPY Allergies have been reviewed and verified. They include the following: Patient has no known allergies. Social History Substance Use Topics - Smoking status: Current Every Day Smoker Packs/day: 0.50 Years: 25.00 Types: Cigarettes - Smokeless tobacco: Never Used - Alcohol use No Comment: 2/month Medications reviewed and updated: Yes Allison Cam Ma CBC Collected: 10/21/2017 Status: F Source: [place] 1:41 PM [facility] TYPE CODE TESTS RESULT OUT OF RANGE REFERENCE UNITS LAB WBC 3.70-11.00 k/uL WBC 7.58 Result Comment: Less than optimal volume of specimen received and tested. LAB RBC 4.20-6.00 m/uL RBC 5.68 LAB HGB 13.0-17.0 g/dL Hemoglobin 16.7 LAB HCT 39.0-51.0 % Hematocrit 48.8 LAB MCV 80.0-100.0 fL MCV 85.9 LAB MCH 26.0-34.0 pG MCH 29.4 LAB MCHC 30.5-36.0 g/dL MCHC 34.2 LAB RDWCV 11.5-15.0 % RDW-CV 13.2 LAB PLTCT 150-400 k/uL Platelet Count 201 LAB MPV 9.0-12.7 fL MPV 11.0 LAB ABSNUC <0.01 k/uL Absolute nRBC <0.01 Performed By: #### CBC, CMP #### [facility] [address] [address] COMP METABOLIC PANEL Collected: 10/21/2017 Status: F Source: [place] 1:41 PM [facility] TYPE CODE TESTS RESULT OUT OF REFERENCE UNITS RANGE LAB TP 6.3-8.0 g/dL Protein, Total 7.4 LAB ALB 3.9-4.9 g/dL Albumin 4.8 LAB CA 8.5-10.2 mg/dL Calcium, Total 9.5 LAB TBIL 0.2-1.3 mg/dL Bilirubin, Total 0.9 LAB ALKP 36-108 U/L Alkaline Phosphatase 63 LAB AST 14-40 U/L AST 19 LAB GLU 74-99 mg/dL Glucose High 154 Result Comment: The [place] [employer] (ADA) provides guidance for cutoff values for fasting glucose and random glucose. The ADA defines fasting as no caloric intake for at least 8 hours. Fas ting plasma glucose results between 100 to 125 mg/dL indicate increased risk for diabetes (prediabetes). Fasting plasma glucose results greater than or equal to 126 mg/dL meet the criteria for diagnosis of diabetes. In the absence of unequivocal hyperglycemia, results should be confirmed by repeat testing. In a patient with classic symptoms of hyperglycemia or hyperglycemic crisis, random plasma glucose results greater than or equal to 200 mg/dL meet the criteria for diagnosis of diabetes. Reference: Standards of Medical Care in Diabetes 2016, [place] [employer]. Diabetes Care. 2016.39(Suppl 1). LAB BUN 9-24 mg/dL BUN 14 LAB CRET 0.73-1.22 mg/dL Creatinine 0.90 LAB NA 136-144 mmol/L Sodium 139 LAB K 3.7-5.1 mmol/L Potassium 4.1 LAB CL 97-105 mmol/L Chloride 98 LAB CO2 22-30 mmol/L CO2 24 LAB AGAP 9-18 mmol/L Anion Gap 17 LAB ALT 10-54 U/L ALT 34 LAB GFRAA eGFR- Amer. >60 LAB GFRNAA . eGFR-All Other Races >60 Result Comment: eGFR (Estimated GFR) Units of measure: mL/min/1.73 meters squared eGFR is derived from the reexpressed MDRD Study equation using the following parameters: serum creatinine, age, gender and race. The creatinine assay has been calibrated to be traceable to IDMS. An eGFR <60 mL/min/1.73m2 for >3 months is consistent with chronic kidney disease. Refer to KDOQI guidelines for clinical interpretation. In patients with unstable renal function, e.g. those with acute kidney injury, the eGFR may not accurately reflect actual GFR. Performed By: #### CBC, CMP #### [facility] [address] [place], [place] [address] TSH Collected: 10/21/2017 Status: F Source: [place] 1:41 PM [facility] TYPE CODE TESTS RESULT OUT OF RANGE REFERENCE UNITS LAB TSH 0.400-5.500 uU/mL TSH 1.490 Performed By: #### TSH #### [facility] [address] [place], [place] [address] PROGRESS Observed: 10/21/2017 Status: COMPLETED Source: [place] 1:05 PM [facility] HNO ID: [id number] Author: Crystal Yousif (Rn) Marcelo Johnston RN Service: (none) Author Type: Registered Nurse Type: Progress Notes Filed: 10/21/2017 1:25 PM Note Text: ET/WOC NURSING ET OUTCOME: Preoperative instruction given to pt and his step father for loop ileostomy surgery through video and face to face interaction. Pt. and father's questions were answered. TOPIC: OSTOMY INSTRUCTION READINESS TO LEARN COGNITIVE ABILITY: Alert and Oriented MOTIVATION TO LEARN: Interested FAMILY SUPPORT: Moderate - Family present but overwhelmed INSTRUCTION PROVIDED TO: Patient and Father PATIENT LEARNS BEST BY: Individual Instruction FACTORS AFFECTING LEARNING: None Other pt. has a history of schizophrenia and has apropriate response and affect at this visit. PHYSICAL LIMITATIONS AFFECTING LEARNING: Sensory Deficit Sight: Corrective lenses LEARNING RESPONSE DIAGNOSIS: Pelvic floor dysfunction PROCEDURE / SURGERY: Loop ileostomy EDUCATION TOPIC/ TEACHING POINTS: Ostomy Care Stoma appearance and function, Purpose of the pouching system, Postoperative ostomy care per ET/WOC Nurse, Postoperative self ostomy care instruction, Discharge equipment ordering and support options and Diet METHOD OF INSTRUCTION: Individual instruction PATIENT / FAMILY RESPONSE: Verbalizing understanding of: Preoperative teaching FOLLOW-UP PLAN: Complete - No need for follow-up SUPPLEMENTAL MATERIAL: Preop Ostomy Handouts and Ileostomy Booklet REFERRAL (RECOMMENDATION): Home Health Agency TIME INCREMENT: 1 hour Ami Cabrera MSN RN WO certified nursing assistant Electronically Signed By Crystal Johnston BSN RN CWOCN ET/WOC Nursing ET/WOC Nursing Note Topic: STOMA MARKING ET Outcome: A permanent ink tattoo was made in low in the the pt.'s RUQ as lower abdomen is round rolls under when pt. bends. The stoma marking purpose and procedure was explained: yes. The patient verbalized understanding and agrees to the marking: yes. Rectus Muscle boarders are located: yes, Comments Rectus muscles are wide and fair in tone. Abdominal contour evaluation was performed in the lying position, sitting position and standing position. The stoma marking was made according to ET/[facility] Nursing Procedure #401 in the RUQ. Patient is able to see site in the following positions: sitting position and standing position Comments: Rubin was made higher than usual for pt. to be able to perform self care. Pt. has a long torso and wears his belt near the suprapubic crease. Abdomen is rounded and this likely partially due to stool loading. Site should be easier for pt to see after abdomen is less distended. DIAGRAM: Time Increment: as above in previous note Ami Cabrera MSN RN [facility] certified nursing assistant Crystal Johnston BSN RN CWOCN CNNURSE Observed: 10/21/2017 Status: COMPLETED Source: [place] 11:15 AM [facility] Nurse Visit ([facility]) FAITH GHOSH ([id number]) 1960 M Date Time Provider Department 10/21/17 11:15 AM [facility] During your visit today, we recorded the following information about you: Crystal Johnston RN, RN 10/21/2017 1:25 PM Signed ET/[facility] NURSING ET OUTCOME: Preoperative instruction given to pt and his step father for loop ileostomy surgery through video and face to face interaction. Pt. and father's questions were answered. TOPIC: OSTOMY INSTRUCTION READINESS TO LEARN COGNITIVE ABILITY: Alert and Oriented MOTIVATION TO LEARN: Interested FAMILY SUPPORT: Moderate - Family present but overwhelmed INSTRUCTION PROVIDED TO: Patient and Father PATIENT LEARNS BEST BY: Individual Instruction FACTORS AFFECTING LEARNING: None Other pt. has a history of schizophrenia and has apropriate response and affect at this visit. PHYSICAL LIMITATIONS AFFECTING LEARNING: Sensory Deficit Sight: Corrective lenses LEARNING RESPONSE DIAGNOSIS: Pelvic floor dysfunction PROCEDURE / SURGERY: Loop ileostomy EDUCATION TOPIC/ TEACHING POINTS: Ostomy Care Stoma appearance and function, Purpose of the pouching system, Postoperative ostomy care per ET/WOC Nurse, Postoperative self ostomy care instruction, Discharge equipment ordering and support options and Diet METHOD OF INSTRUCTION: Individual instruction PATIENT / FAMILY RESPONSE: Verbalizing understanding of: Preoperative teaching FOLLOW-UP PLAN: Complete - No need for follow-up SUPPLEMENTAL MATERIAL: Preop Ostomy Handouts and Ileostomy Booklet REFERRAL (RECOMMENDATION): Home Health Agency TIME INCREMENT: 1 hour Ami FLAHERTY RN [facility] certified nursing assistant Electronically Signed By Crystal CLARKE RN CWOCN ET/WOC Nursing ET/WO Nursing Note Topic: STOMA MARKING ET Outcome: A permanent ink tattoo was made in low in the the pt.'s RUQ as lower abdomen is round rolls under when pt. bends. The stoma marking purpose and procedure was explained: yes. The patient verbalized understanding and agrees to the marking: yes. Rectus Muscle boarders are located: yes, Comments Rectus muscles are wide and fair in tone. Abdominal contour evaluation was performed in the lying position, sitting position and standing position. The stoma marking was made according to ET/[facility] Nursing Procedure #401 in the RUQ. Patient is able to see site in the following positions: sitting position and standing position Comments: Rubin was made higher than usual for pt. to be able to perform self care. Pt. has a long torso and wears his belt near the suprapubic crease. Abdomen is rounded and this likely partially due to stool loading. Site should be easier for pt to see after abdomen is less distended. DIAGRAM: Time Increment: as above in previous note Ami FLAHERTY RN [facility] certified nursing assistant Crystal CLARKE RN CWOCN Referring Provider: ANNE FOWLER [[id number]] Allergies As of Date: 10/21/2017 (No Known Allergies) Date Reviewed: 10/21/2017 Reviewed by: Anne Fowler - Fully Assessed Primary Visit Diagnosis:Disorder of muscle, ligament, and fascia [M62.9] Prescriptions as of 10/21/2017 Sig: PEG 3350-ELECTROLYTES 236 GRA* Refer to printed patient inst* NEOMYCIN 500 MG TABLET Take 2 tablets by mouth at 9p* METRONIDAZOLE 500 MG TABLET Take 1 tablet by mouth at 9pm* RADIOPAQUE PVC MARKERS-BARIUM* Take Capsule on Wednesday You w* KELP ORAL Take by mouth. LINACLOTIDE 290 MCG CAPSULE Take by mouth once daily. PANTOPRAZOLE 40 MG TABLET,DEL* Take 40 mg by mouth once frederic* LUBIPROSTONE 24 MCG CAPSULE Take 1 capsule by mouth twice* B-12 DOTS ORAL Take by mouth. ASCORBIC ACID (VITAMIN C) 100* Take 100 mg by mouth once francois* FISH OIL ORAL Take by mouth once daily. CLOZAPINE 100 MG TABLET Take 100 mg by mouth once francois* HYDROCHLOROTHIAZIDE 50 MG TAB* Take 50 mg by mouth once frederic* BENZTROPINE 1 MG TABLET Take 1 mg by mouth twice frederic* MONTELUKAST 10 MG TABLET TAKE 1 TABLET BY MOUTH DAILY * MAGNESIUM OXIDE 500 MG TABLET Take 500 mg by mouth once francois* METFORMIN 1,000 MG TABLET Take 1,000 mg by mouth daily * POLYETHYLENE GLYCOL 3350 17 G* Take 17 g by mouth once daily. Patient taking differently: Take 17 g by mouth twice frederic* JANUMET XR 50 MG-1,000 MG TAB* TAKE 1 TABLET BY MOUTH TWICE * LOVASTATIN 20 MG TABLET Take 1 tablet by mouth daily * ATENOLOL 25 MG TABLET Take 1 tablet by mouth twice * Patient taking differently: Take 25 mg by mouth once frederic* OMEGA-3 ACID ETHYL ESTERS 1 G* Take 2 capsules by mouth twic* BLOOD-GLUCOSE METER KIT 1 Each as needed. One Touch M* BLOOD SUGAR DIAGNOSTIC STRIPS Test blood sugar(s) 2 times d* LANCETS 28 GAUGE Test once daily. Dx: E11.9 -* LISINOPRIL 2.5 MG TABLET Take 1 tablet by mouth once d* PERPHENAZINE 8 MG TABLET Take 1 tablet by mouth four t* LORAZEPAM 2 MG TABLET Take 1 tablet by mouth twice * HYDROXYZINE PAMOATE 50 MG CAP* Take 1 capsule by mouth three* ALHWHIJI-LCX-HU 0.4 MG-CALCIU* Take 1 tablet by mouth once d* ASPIRIN 81 MG TABLET,DELAYED * Take 1 tablet by mouth once d* Problem List As Of Date 10/21/2017 Noted Resolved Diabetes (HCC) [E11.9] INVALID FOR* More... Hypertension [I10] INVALID FOR* More... Hyperlipidemia [E78.5] INVALID FOR* More... Paranoid schizophrenia (HCC) [F20.0] INVALID FOR* More... COPD (chronic obstructive pulmonary disease) (H*INVALID FOR* More... Blood per rectum [K62.5] INVALID FOR* Constipation [K59.00] INVALID FOR* Outlet dysfunction constipation [K59.02] INVALID FOR* Pelvic floor dysfunction [M62.89] INVALID FOR* Annotated image of TORSO last updated by Crystal Yousif (Rn) Marcelo Johnston RN on 10/21/2017 1:23 PM Encounter Status:Closed by CRYSTAL FENG on 10/21/17 PROGRESS Observed: 10/21/2017 Status: COMPLETED Source: [place] 10:52 AM [facility] HNO ID: [id number] Author: Anne Fowler Service: (none) Author Type: Physician Type: Progress Notes Filed: 10/21/2017 5:13 PM Note Text: Patient returns for preop visit ahead of fecal diversion for constipation. He has outlet dysfunction by manometry In the interim since his last visit he had a Sitzmarks study which shows slow transit as well (nearly all markers remain, there were scattered throughout the colon) We again reviewed options for advancement of medical therapy, but he declines, favoring diversion Will plan for laparoscopic ileostomy The risks, benefits and alternatives to the procedure were discussed including but not limited to infection, bleeding and pain, injury to nearby structures and conversion to open operation. Informed consent obtained. He is also due for colonoscopy. Instructions provided for today, lightly bowel prep. Endoscopy will be performed concurrent with ileostomy Anne Fowler MD CNOV Observed: 10/21/2017 Status: COMPLETED Source: [place] 10:20 AM [facility] REPOSITORY Office Visit (IRMA) FAITH GHOSH ([id number]) 1960 M Date Time Provider Department 10/21/17 10:20 AM ANNE FOWLER During your visit today, we recorded the following information about you: Weight Height 99.8 kg 1.854 m Anne Fowler MD 10/21/2017 5:13 PM Signed Patient returns for preop visit ahead of fecal diversion for constipation. He has outlet dysfunction by manometry In the interim since his last visit he had a Sitzmarks study which shows slow transit as well (nearly all markers remain, there were scattered throughout the colon) We again reviewed options for advancement of medical therapy, but he declines, favoring diversion Will plan for laparoscopic ileostomy The risks, benefits and alternatives to the procedure were discussed including but not limited to infection, bleeding and pain, injury to nearby structures and conversion to open operation. Informed consent obtained. He is also due for colonoscopy. Instructions provided for today, lightly bowel prep. Endoscopy will be performed concurrent with ileostomy Anne Fowler MD Referring Provider: MACKENZIE TEJEDA [[id number]] Allergies As of Date: 10/21/2017 (No Known Allergies) Date Reviewed: 10/21/2017 Reviewed by: Anne Fowler - Fully Assessed Reason for Visit: Established Patient [175] Primary Visit Diagnosis:Outlet dysfunction constipation [K59.02] Other Visit Diagnosis:Slow transit constipation [K59.01] Prescriptions as of 10/21/2017 Sig: PEG 3350-ELECTROLYTES 236 GRA* Refer to printed patient inst* Patient not taking: Reported on 10/21/2017 NEOMYCIN 500 MG TABLET Take 2 tablets by mouth at 9p* Patient not taking: Reported on 10/21/2017 METRONIDAZOLE 500 MG TABLET Take 1 tablet by mouth at 9pm* Patient not taking: Reported on 10/21/2017 LINACLOTIDE 290 MCG CAPSULE Take 1 capsule by mouth once * X PANTOPRAZOLE 40 MG TABLET,DEL* Take 40 mg by mouth once frederic* X LUBIPROSTONE 24 MCG CAPSULE Take 1 capsule by mouth twice* B-12 DOTS ORAL Take 1 tablet by mouth once d* ASCORBIC ACID (VITAMIN C) 100* Take 100 mg by mouth once francois* X FISH OIL ORAL Take 1 capsule by mouth once * CLOZAPINE 100 MG TABLET Take 100 mg by mouth once francois* HYDROCHLOROTHIAZIDE 50 MG TAB* Take 50 mg by mouth once frederic* BENZTROPINE 1 MG TABLET Take 1 mg by mouth twice frederic* MONTELUKAST 10 MG TABLET TAKE 1 TABLET BY MOUTH DAILY * MAGNESIUM OXIDE 500 MG TABLET Take 500 mg by mouth once francois* METFORMIN 1,000 MG TABLET Take 1,000 mg by mouth daily * X POLYETHYLENE GLYCOL 3350 17 G* Take 17 g by mouth once daily. Patient taking differently: Take 17 g by mouth twice frederic* JANUMET XR 50 MG-1,000 MG TAB* TAKE 1 TABLET BY MOUTH TWICE * LOVASTATIN 20 MG TABLET Take 1 tablet by mouth daily * X ATENOLOL 25 MG TABLET Take 1 tablet by mouth twice * Patient taking differently: Take 25 mg by mouth once frederic* OMEGA-3 ACID ETHYL ESTERS 1 G* Take 2 capsules by mouth twic* BLOOD-GLUCOSE METER KIT 1 Each as needed. One Touch M* BLOOD SUGAR DIAGNOSTIC STRIPS Test blood sugar(s) 2 times d* LANCETS 28 GAUGE Test once daily. Dx: E11.9 -* LISINOPRIL 2.5 MG TABLET Take 1 tablet by mouth once d* PERPHENAZINE 8 MG TABLET Take 1 tablet by mouth four t* LORAZEPAM 2 MG TABLET Take 1 tablet by mouth twice * ASPIRIN 81 MG TABLET,DELAYED * Take 1 tablet by mouth once d* X HYDROXYZINE PAMOATE 50 MG CAP* Take 1 capsule by mouth three* X [id number] 0.4 MG-CALCIU* Take 1 tablet by mouth once d* X RADIOPAQUE PVC MARKERS-BARIUM* Take Capsule on Wednesday You w* X KELP ORAL Take by mouth. Problem List As Of Date 10/21/2017 Noted Resolved Diabetes (HCC) [E11.9] INVALID FOR* More... Hypertension [I10] INVALID FOR* More... Hyperlipidemia [E78.5] INVALID FOR* More... Paranoid schizophrenia (HCC) [F20.0] INVALID FOR* More... COPD (chronic obstructive pulmonary disease) (H*INVALID FOR* More... Blood per rectum [K62.5] INVALID FOR* Constipation [K59.00] INVALID FOR* Outlet dysfunction constipation [K59.02] INVALID FOR* Pelvic floor dysfunction [M62.89] INVALID FOR* Encounter Status:Closed by ANNE FOWLER MD on 10/21/17 CBC W/DIFF, AUTOMATED Collected: 10/20/2017 Status: F Source: [place] 4:35 PM [facility] [place] REPOSITORY TYPE CODE TESTS RESULT OUT OF RANGE REFERENCE UNITS LAB L100.1000 4.4-11.0 K/mm3 Normal WBC 7.3 LAB L100.1200 4.6-6.2 M/mm3 Normal RBC 5.32 LAB L100.1300 13.0-16.5 g/dl Normal HGB 15.6 LAB L100.1400 40-54 % Normal HCT 44.9 LAB L100.1500 80-94 fL Normal MCV 84.4 LAB L100.1600 27.0-32.0 pg Normal MCH 29.3 LAB L100.1700 32-36 g/gl Normal MCHC 34.7 LAB L100.1810 11.6-14.6 % Normal RDW CV 13.1 LAB L100.1820 35.1-43.9 fl Normal RDW SD 39.6 LAB L100.1900 150-450 K/mm3 Normal PLT 182 LAB L100.2000 6.2-12.0 fl Normal MPV 10.5 LAB L100.2100 47-70 % Normal NEUT% 48.6 LAB L100.2200 19-41 % Normal LY% 37.6 LAB L100.2300 0-10 % High MONO% 11.1 LAB L100.2400 0-5 % Normal EO% 2.1 LAB L100.2500 0-1 % Normal BASO% 0.5 LAB L100.2550 0.0-0.9 % Normal IM GRAN % 0.100 Result Comment: IG% - Immature Granulocytes (promyelocytes, myelocytes and metamyelocytes) > 1% indicates that a LEFT SHIFT is Present. LAB L100.2620 2.0-7.7 X10 3/uL Normal Absolute Neut 3.5 LAB L100.2720 0.83-4.51 X10 3/ul Normal Absolute Lymph 2.74 Performed By: #### L100.0100 #### [facility] [address] [facility] [place], [address] CBC W/DIFF, AUTOMATED Collected: 09/23/2017 Status: F Source: [place] 12:18 PM [facility] REPOSITORY TYPE CODE TESTS RESULT OUT OF RANGE REFERENCE UNITS LAB L100.1000 4.4-11.0 K/mm3 Normal WBC 6.9 LAB L100.1200 4.6-6.2 M/mm3 Normal RBC 5.53 LAB L100.1300 13.0-16.5 g/dl Normal HGB 16.2 LAB L100.1400 40-54 % Normal HCT 46.1 LAB L100.1500 80-94 fL Normal MCV 83.4 LAB L100.1600 27.0-32.0 pg Normal MCH 29.3 LAB L100.1700 32-36 g/gl Normal MCHC 35.1 LAB L100.1810 11.6-14.6 % Normal RDW CV 13.0 LAB L100.1820 35.1-43.9 fl Normal RDW SD 39.6 LAB L100.1900 150-450 K/mm3 Normal PLT 176 LAB L100.2000 6.2-12.0 fl Normal MPV 11.4 LAB L100.2100 47-70 % Normal NEUT% 51.6 LAB L100.2200 19-41 % Normal LY% 35.2 LAB L100.2300 0-10 % Normal MONO% 9.9 LAB L100.2400 0-5 % Normal EO% 2.8 LAB L100.2500 0-1 % Normal BASO% 0.4 LAB L100.2550 0.0-0.9 % Normal IM GRAN % 0.100 Result Comment: IG% - Immature Granulocytes (promyelocytes, myelocytes and metamyelocytes) > 1% indicates that a LEFT SHIFT is Present. LAB L100.2620 2.0-7.7 X10 3/uL Normal Absolute Neut 3.5 LAB L100.2720 0.83-4.51 X10 3/ul Normal Absolute Lymph 2.42 Performed By: #### L100.0100 #### [facility] [address] [place], [address] HOSP Observed: 09/06/2017 Status: COMPLETED Source: [place] 12:00 AM [facility] REPOSITORY Patient Update (IRMA) FAITH GHOSH ([id number]) 1960 M Date Time Provider Department 09/06/17 ANNE FOWLER During your visit today, we recorded the following information about you: Allergies As of Date: 09/06/2017 (No Known Allergies) Date Reviewed: 08/12/2017 Reviewed by: Anne Fowler - Fully Assessed Primary Visit Diagnosis:Constipation, unspecified constipation type [K59.00] Order(s):SURGICAL REQUEST - ELECTIVE [[id number]] Order #: [id number]: 1 JASIEL WHAT TO EXPECT DURING YOUR HOSPITAL STAY [[id number]] Order #: [id number]: 1 CBC [SQCBC] Order #: [id number] FUTURE COMP METABOLIC PANEL [SQCMP] Order #: [id number] FUTURE REFER FOR ADMIT INTERVIEW [[id number]] Order #: [id number] CONSULT TO PATIENT EDUCATION [[id number]] Order #: [id number]: 1 CONSULT TO ANESTHESIOLOGY [9002] Order #: [id number]: 1 ENTEROSTOMAL THERAPY, RN [[id number]] Order #: [id number]: 1 CONSULT TO INT MED-IMPACT [[id number]] Order #: [id number]: 1 Prescriptions as of 09/06/2017 Sig: RADIOPAQUE PVC MARKERS-BARIUM* Take Capsule on Wednesday You w* KELP ORAL Take by mouth. LINACLOTIDE 290 MCG CAPSULE Take by mouth once daily. PANTOPRAZOLE 40 MG TABLET,DEL* Take 40 mg by mouth once frederic* LUBIPROSTONE 24 MCG CAPSULE Take 1 capsule by mouth twice* B-12 DOTS ORAL Take by mouth. ASCORBIC ACID (VITAMIN C) 100* Take 100 mg by mouth once francois* FISH OIL ORAL Take by mouth once daily. CLOZAPINE 100 MG TABLET Take 100 mg by mouth once francois* HYDROCHLOROTHIAZIDE 50 MG TAB* Take 50 mg by mouth once frederic* BENZTROPINE 1 MG TABLET Take 1 mg by mouth twice frederic* MONTELUKAST 10 MG TABLET TAKE 1 TABLET BY MOUTH DAILY * MAGNESIUM OXIDE 500 MG TABLET Take 500 mg by mouth once francois* METFORMIN 1,000 MG TABLET Take 1,000 mg by mouth daily * POLYETHYLENE GLYCOL 3350 17 G* Take 17 g by mouth once daily. Patient taking differently: Take 17 g by mouth twice frederic* JANUMET XR 50 MG-1,000 MG TAB* TAKE 1 TABLET BY MOUTH TWICE * LOVASTATIN 20 MG TABLET Take 1 tablet by mouth daily * ATENOLOL 25 MG TABLET Take 1 tablet by mouth twice * Patient taking differently: Take 25 mg by mouth once frederic* OMEGA-3 ACID ETHYL ESTERS 1 G* Take 2 capsules by mouth twic* BLOOD-GLUCOSE METER KIT 1 Each as needed. One Touch M* BLOOD SUGAR DIAGNOSTIC STRIPS Test blood sugar(s) 2 times d* LANCETS 28 GAUGE Test once daily. Dx: E11.9 -* LISINOPRIL 2.5 MG TABLET Take 1 tablet by mouth once d* PERPHENAZINE 8 MG TABLET Take 1 tablet by mouth four t* LORAZEPAM 2 MG TABLET Take 1 tablet by mouth twice * HYDROXYZINE PAMOATE 50 MG CAP* Take 1 capsule by mouth three* LICHECIB-IBL-BH 0.4 MG-CALCIU* Take 1 tablet by mouth once d* ASPIRIN 81 MG TABLET,DELAYED * Take 1 tablet by mouth once d* Problem List As Of Date 09/06/2017 Noted Resolved Diabetes (HCC) [E11.9] INVALID FOR* More... Hypertension [I10] INVALID FOR* More... Hyperlipidemia [E78.5] INVALID FOR* More... Paranoid schizophrenia (HCC) [F20.0] INVALID FOR* More... COPD (chronic obstructive pulmonary disease) (H*INVALID FOR* More... Blood per rectum [K62.5] INVALID FOR* Constipation [K59.00] INVALID FOR* Outlet dysfunction constipation [K59.02] INVALID FOR* Pelvic floor dysfunction [M62.89] INVALID FOR* Follow-up and Disposition History Recorded Encounter Status:Closed by ANNE FOWLER MD on 09/06/17 HOSP Observed: 09/06/2017 Status: COMPLETED Source: [place] 12:00 AM [facility] REPOSITORY Patient:Faith Ghosh MRN: <[id number]> Height:6' 1(1.854 m) Weight:221 lb (100.245 kg) Outpatient Medications as of 10/25/17: NIACIN ORAL psyllium husk (METAMUCIL ORAL) atenolol (TENORMIN) 25 mg tablet albuterol HFA (PROVENTIL HFA) 90 mcg/actuation inhaler pantoprazole sodium (PANTOPRAZOLE ORAL) linaclotide (LINZESS) 290 mcg cap CYANOCOBALAMIN, VITAMIN B-12, (B-12 DOTS ORAL) Ascorbic Acid (VITAMIN C) 100 mg tablet cloZAPine (CLOZARIL) 100 mg tablet hydroCHLOROthiazide (HYDRODIURIL, ESIDRIX) 50 mg tablet benztropine (COGENTIN) 1 mg tablet montelukast (SINGULAIR) 10 mg tablet Magnesium Oxide 500 mg tab metFORMIN (GLUCOPHAGE) 1,000 mg tablet JANUMET XR 50-1,000 mg TM24 lovastatin (MEVACOR) 20 mg tablet omega-3 acid ethyl esters (LOVAZA) 1 gram capsule Blood-Glucose Meter (ONETOUCH ULTRA2) monitoring kit blood sugar diagnostic (ONETOUCH ULTRA TEST) test strip lancets (FREESTYLE LANCETS) 28 gauge misc lisinopril 2.5 mg tablet perphenazine 8 mg tablet LORazepam (ATIVAN) 2 mg tab aspirin, enteric coated (ADULT LOW DOSE ASPIRIN) 81 mg EC tablet Admission/Clinic Administered Medications as of 10/25/17: lidocaine 10 mg/mL (1 %) 1-2 mg injection (XYLOCAINE) lactated ringers infusion cefTRIAXone 2 g in D5W 100 mL MB+ (ROCEPHIN) metroNIDAZOLE 500 mg PREMIX piggyback (FLAGYL) enoxaparin 40 mg injection (LOVENOX) Problem List: Diabetes (HCC) [E11.9] Hypertension [I10] Hyperlipidemia [E78.5] Paranoid schizophrenia (HCC) [F20.0] COPD (chronic obstructive pulmonary disease) (HCC) [J44.9] Blood per rectum [K62.5] Constipation [K59.00] Outlet dysfunction constipation [K59.02] Pelvic floor dysfunction [M62.89] Allergies: No Known Allergies Date Verified:10/25/17 Lab Values Lab Value Units Date High Low POTA* 4.1 mmol/L 10/21/2017 5.1 3.7 JOHANNA* 48.8 % 10/21/2017 51.0 39.0 Progress Notes ([facility]): Malou Koehler, RN, RN 10/22/2017 8:37 AM Addendum ANESTHESIA PRE-OPERATIVE ASSESSMENT (PACE) SERVICE DATE: 10/21/2017 SERVICE TIME: 4:16 ASSESSMENT AND PLAN: Faith Ghosh is a 57 year old male scheduled for Colonoscopy Laparoscopic ileostomy, possible open per Informed Consent in MAIN on 10/25/2017. PMH: Outlet Dysfunction constipation Denies problems with anesthesia HTN: Fair control with Tenormin, HCTZ, Lisinopril HPL: Lovastatin COPD/Emphysema: Controlled with Albuterol, singular Smoker: 1/2-1 ppd x 22 years GERD; Controlled with Pantoprazole T2DM: FBS 110-150 Metformin, [place] Auditory Hallucination: Treated with Clozapine Schizoaffective disorder: Treated with cogentin, Lorazepam [facility]: 3 FC: 2 METS: Climb a flight of stairs or walk up a hill (5.50 METs) Patient denies any chest pain or undue shortness of breath with the above physical activity. ADDITIONAL DISCUSSION WITH PATIENT: Discussed with patient the possibilities of invasive monitoring, blood loss or possible need for blood transfusion. Patient WILL accept blood products. BLOOD WORK/PRODUCTS ORDERED: Type and Screen , Con ABO HISTORY OF CHRONIC PAIN: No PAIN MANAGEMENT OPTIONS: Final pain management plan will be discussed on the day of surgery. ANESTHETIC OPTIONS: Final anesthesia management options will be discussed on day of surgery. PRE-OP PLAN ORDERED: Diabetes orders Patient Instructed: ? No solid food or non-clear liquids after midnight. Clear liquids allowed until two hours before scheduled arrival. ? Patient instructed to take the following medications with a sip of water: Tenormin, Clozapine, cogentin, lorazepam ? Diabetic instructions discussed. Vital Signs: There were no vitals taken for this visit. No weight on file for this encounter. Vital signs completed by: [facility] Weight acquired: per HANDP. Height acquired: per HANDP Airway Exam: MOUTH OPENING/TMJ: Full jaw ROM MICROGNATHIA/OVERBITE: No MALLAMPATI SCORE is CLASS III UPPER LIP BITE TEST: Class I - Lower incisors can bite the upper lip above the michele line DENTITION: Chipped, loose, and/or missing - Missing multiple upper and lower teeth, Caps and/or crowns - upper incisors and Caps and/or crowns - lower incisors THYROMENTAL DIST: WNL SHORT NECK: No NECK CIRCUMFERENCE >40 cm: Neck Circumference measured at 43 cm NECK FLEX: Full ROM NECK EXTENSION: Full ROM AIRWAY HISTORY: No abnormal airway history ARKS AIRWAY DETAIL: N/A DATA: EKG READING: to be done 10/21/2017 OTHER TESTS: Chest X-ray: To be done 10/21/2017 Lab Value Units Date High Low HB 16.7 g/dL 10/21/2017 17.0 13.0 HCT 48.8 % 10/21/2017 51.0 39.0 WBC 7.58 k/uL 10/21/2017 11.00 3.70 PLT 201 k/uL 10/21/2017 400 150 NA 139 mmol/L 10/21/2017 144 136 K 4.1 mmol/L 10/21/2017 5.1 3.7 GLUC 154 mg/dL 10/21/2017 99 74 BUN 14 mg/dL 10/21/2017 24 9 CREAT 0.90 mg/dL 10/21/2017 1.22 0.73 PTSEC No results within date range. INR No results within date range. APTT No results within date range. ALT 34 U/L 10/21/2017 54 10 AST 19 U/L 10/21/2017 40 14 TBILI 0.9 mg/dL 10/21/2017 1.3 0.2 TSH 1.490 uU/mL 10/21/2017 5.500 0.400 Lab Value Units Date High Low HCGQT No results within date range. UHCG No results within date range. HCG, BODY* No results within date range. Lab Value Units Date High Low ABORHD A POSI* no uni* 10/21/2017 ABSCREEN NEG no uni* 10/21/2017 Patient accompanied by Step father Case Discussed with Dr Pace OPTIMIZATION STATUS: Patient optimization pending Labs IMPACT CXR PACE EKG PACE SIGNATURE: Malou Koehler RN PATIENT NAME: Faith Ghosh DATE: October 21, 2017 TIME: 4:16 PM PAGER/CONTACT #: [email or web address] Koehler RN 10/22/2017 CXR 10/21/2017 RESULT: Lines, tubes, and devices: ?None. Lungs and pleura: ?Lungs are clear no focal infiltrates or mass lesion. Mild degree of inflammatory airway thickening is not excluded along the medial aspect of the bases. No pleural effusion or pneumothorax. Cardiomediastinal silhouette: ?Heart is normal. Mediastinal and hilar contours are unremarkable. Other: ?There is mild generalized osteopenia. TANDS con to upal Previous Version Progress Notes ([facility]): Aundrea Zacarias MD 10/21/2017 3:03 PM Signed Faith Ghosh is a 57 year old male here today for visit in [facility] Referring Surgeon: Dr. Malcolm Date of Surgery: 10/25/2017 Planned Surgery/Procedure: COLONOSCOPY Allergies have been reviewed and verified. They include the following: Patient has no known allergies. Social History Substance Use Topics - Smoking status: Current Every Day Smoker Packs/day: 0.50 Years: 25.00 Types: Cigarettes - Smokeless tobacco: Never Used - Alcohol use No Comment: 2/month Medications reviewed and updated: Yes Allison Cam Ma Previous Version Aundrea Zacarias MD 10/22/2017 6:52 AM Addendum HISTORY AND PHYSICAL EXAMINATION (IMPA[facility]) SERVICE DATE: 10/21/2017 SERVICE TIME: 2:39 PM PRIMARY CARE PHYSICIAN: Mackenzie Tejeda MD CHIEF COMPLAINT/HISTORY OF PRESENT ILLNESS: Mr. Ghosh is a 57 year old male referred to me for preoperative evaluation. My final recommendations will be communicated back to the requesting physician/surgeon by the way of the shared medical record. Referring Surgeon: Dr. Fowler Date of Surgery: 10/25/2017 Planned Surgery/Procedure: COLONOSCOPY Indication for Planned Surgery / Procedure: outlet obstruction constipation Per CUSTOMER SERVICE SPECIALIST in [facility] [place] failed Linzess 290mcg, Amitiza 24mcg, BID Miralax, Metamucil, dulcolax suppositories, and 500mg Mg. He also failed pelvic floor therapy (+dyssynergia on ARM.) The plan has been for fleets enemas q 2-3 days which are also not helpful. He describes severe overflow incontinence after taking weekly magnesium citrate. He currently has bms q 10- 14 days following the mag citrate Refer to Assessment section for details of any comorbidities. HTN DM Hx drug use COPD Schizoaffective disorder on ativan, cogentin Patient is Able to Perform the Following Physical Activity: Climb a flight of stairs or walk up a hill (5.50 METs) Patient denies any chest pain or undue shortness of breath with the above physical activity. Significant Anesthesia Considerations: None. PAST MEDICAL/SURGICAL/FAMILY/SOCIAL HISTORY PAST MEDICAL HISTORY Diagnosis Date - Anxiety - Auditory hallucinations - Constipation - COPD (chronic obstructive pulmonary disease) (HCC) - Diabetes (HCC) - Hyperlipidemia - Hypertension PAST SURGICAL HISTORY Procedure Laterality Date - COLONOSCOP W/ OR W/O [facility] SPEC 08/19/2016 poor prep - BE ordered - COLONOSCOPY about 3-4 years ago - EXTRACTION ERUPTED TOOTH/EXR - KNEE SURGERY HX 1988 right FAMILY HISTORY Problem Relation Age of Onset - Diabetes Paternal Aunt SOCIAL HISTORYSocial History Marital status: Single Spouse name: Years of education: Number of children: Occupational History Occupation Employer Comment unemployed Social History Main Topics Smoking status: Current Every Day Smoker Packs/day: 0.50 Years: 25.00 Types: Cigarettes Smokeless tobacco: Never Used Alcohol use: No Comment: 2/month Drug use: No Sexual activity: No MEDICATIONS/ALLERGIES Current Outpatient Prescriptions: NIACIN ORAL Take 1 capsule by mouth once daily. Disp: Rfl: psyllium husk (METAMUCIL ORAL) Take 1 tablet by mouth once daily. Disp: Rfl: atenolol (TENORMIN) 25 mg tablet Take 1 tablet by mouth once daily. Disp: Rfl: linaclotide (LINZESS) 290 mcg cap Take 1 capsule by mouth once daily. Disp: Rfl: CYANOCOBALAMIN, VITAMIN B-12, (B-12 DOTS ORAL) Take 1 tablet by mouth once daily. Disp: Rfl: Ascorbic Acid (VITAMIN C) 100 mg tablet Take 100 mg by mouth once daily. Disp: Rfl: cloZAPine (CLOZARIL) 100 mg tablet Take 100 mg by mouth once daily. Two tablets daily Disp: Rfl: hydroCHLOROthiazide (HYDRODIURIL, ESIDRIX) 50 mg tablet Take 50 mg by mouth once daily. Disp: Rfl: benztropine (COGENTIN) 1 mg tablet Take 1 mg by mouth twice daily. Disp: Rfl: montelukast (SINGULAIR) 10 mg tablet TAKE 1 TABLET BY MOUTH DAILY AT BEDTIME. Disp: 90 tablet Rfl: 0 Magnesium Oxide 500 mg tab Take 500 mg by mouth once daily. Disp: Rfl: metFORMIN (GLUCOPHAGE) 1,000 mg tablet Take 1,000 mg by mouth daily with breakfast. Disp: Rfl: JANUMET XR 50-1,000 mg TM24 TAKE 1 TABLET BY MOUTH TWICE A DAY Disp: 168 tablet Rfl: 0 lovastatin (MEVACOR) 20 mg tablet Take 1 tablet by mouth daily at bedtime. Disp: 30 tablet Rfl: 12 omega-3 acid ethyl esters (LOVAZA) 1 gram capsule Take 2 capsules by mouth twice daily. Disp: 120 capsule Rfl: 11 Blood-Glucose Meter (NewscronUCH ULTRA2) monitoring kit 1 Each as needed. One Touch Meter Kit Diagnosis: Type 2 DM - Controlled E11.9 Test twice a day as directed, NO insulin Disp: 1 Each Rfl: 0 blood sugar diagnostic (ONETOUCH ULTRA TEST) test strip Test blood sugar(s) 2 times daily. Dx: Type 2 DM - Controlled E11.9 Insulin: No Disp: 50 Strip Rfl: 11 lancets (FREESTYLE LANCETS) 28 gauge misc Test once daily. Dx: E11.9 - Insulin - No Disp: 50 Each Rfl: 11 lisinopril 2.5 mg tablet Take 1 tablet by mouth once daily. Disp: 30 tablet Rfl: 11 perphenazine 8 mg tablet Take 1 tablet by mouth four times daily. Disp: Rfl: LORazepam (ATIVAN) 2 mg tab Take 1 tablet by mouth twice daily. Disp: Rfl: aspirin, enteric coated (ADULT LOW DOSE ASPIRIN) 81 mg EC tablet Take 1 tablet by mouth once daily. Disp: Rfl: 0 peg 3350-Electrolytes (GOLYTELY) 236-22.74-6.74 -5.86 gram suspension Refer to printed patient instructions that will be mailed to you. (Patient not taking: Reported on 10/21/2017 ) Disp: 1 Bottle Rfl: 0 neomycin 500 mg tablet Take 2 tablets by mouth at 9pm and take 2 tablets by mouth at 11pm the night before surgery. (Patient not taking: Reported on 10/21/2017 ) Disp: 4 tablet Rfl: 0 metroNIDAZOLE (FLAGYL) 500 mg tablet Take 1 tablet by mouth at 9pm and take 1 tablet by mouth at 11pm the night before surgery. (Patient not taking: Reported on 10/21/2017 ) Disp: 2 tablet Rfl: 0 No current facility-administered medications for this visit. ALLERGIES No Known Allergies REVIEW OF SYSTEMS General: No weight loss, malaise or fevers. 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 No neurological symptoms or problems. Respiratory: COPD Cardiovascular: Hypertension GI: constipation x 5 years. Takes Lactulose once a week to induce diarrhea : No history of UTI in past 6 weeks. No history of renal failure. Not currently on or requiring dialysis. No history of symptoms or problems. Endocrine: Diabetes Mellitus on oral agent Hematology: No history of bleeding or clotting disorder. No history of hematological symptoms or problems. Oncology: No history of CA metastasis, chemo within 30 days, or radiotherapy within 90 days. No history of oncological symptoms or problems. Psych: schizoaffective disorder Skin: skin damage on arms PHYSICAL EXAM VITALS: BP 124/92 Pulse 102 Temp (Src) 97.4 (Oral) Ht 6' 1 (1.85m) Wt 221 lb (100.2kg) SpO2 97% BMI 29.16 kg/(m2). General: Alert and oriented Skin: Normal color, no rash, no lesions. HEENT: EOM, pupils equal, round and reactive. Cardiovascular: Normal S1 AND S2, no rubs, murmurs or gallops. No JVD. Pulse regular. Lungs: Rhonchi, DEYANIRA Abdomen: Soft, non-tender, no rigidity. Extremities: No deformity, no edema or tenderness, no joint swelling or clubbing. Neurological: Normal cognition and motor skills. Pulses: Radial pulses; left 2+ / right 2+. ASSESSMENT Mr. Ghosh is a 57 year old male referred to me for preoperative evaluation. Patient has the following medical comorbidities which might affect the perioperative course: - COPD with mild Emphysema. - Type II Diabetes with no complications. Patient is on oral medications. - Hypertension, well controlled. - schizoaffective disorder Patient's RCRI (Revised Cardiac Risk Index: CAD/CHF/Stroke or TIA/SCr>2/DM on Insulin/High Risk Surgery) score is 0 and is at low risk for major adverse cardiac events in the perioperative period. Diagnostic tests reviewed for today's visit: PENDING No results for input(s): HBA1C, UALBCR, GLUC, K, NA, CHLOR, CO2, CREAT, BUN, ANION, CA, CHOL, HDL, LDL, TG in the last 6720 hours. No results found for: TSH PLAN/RECOMMENDATIONS CARDIAC: Patient is at optimal cardiac condition for scheduled surgery / procedure. PULMONARY: Patient is at optimal Pulmonary status for scheduled surgery / procedure. Patient is at increased risk for postoperative pulmonary complications. Advised patient to stop smoking. Suggest the following in the post-operative period: Continue bronchodilator medications, Aggressive bronchopulmonary hygiene and Early ambulation Following additional test(s) requested for risk assessment / evaluation prior to surgery: CXR ENDOCRINE: DIABETES: - Initiate [facility] Guidelines for perioperative diabetes management. Check finger stick glucose on the morning of surgery. - Patient has been instructed on Preoperative DM medication management. VASCULAR/ANTICOAGULATION: VTE prophylaxis as deemed appropriate by the surgical service. Patient is optimally prepared for surgery. Patient Instructions: As per patient instructions section. I have discussed the above recommendations with the patient in detail, in simon and lay terms, and provided a written summary of instructions as needed. We have discussed that no surgery is without risk, but that the goal of preoperative assessment is to optimize that risk, and that was clearly understood by the patient. I have given ample opportunity for the patient to ask questions, and answered all questions to their stated satisfaction. SIGNATURE: Aundrea Zacarias MD PATIENT NAME: Faith Ghosh DATE: October 21, 2017 TIME: 2:39 PM CBC, Coags, BMP, Mg, Phos Recent Labs 10/21/17 1341 WBC 7.58 HB 16.7 HCT 48.8 PLT 201 NA 139 K 4.1 CHLOR 98 CO2 24 BUN 14 CREAT 0.90 GLUC 154* CA 9.5 Liver Function, Amylase, AND Lipase Recent Labs 10/21/17 1341 TPROT 7.4 ALB 4.8 ALT 34 AST 19 ALKPHOS 63 TBILI 0.9 Labs are acceptable for surgery. RESULT: Lines, tubes, and devices: ?None. Lungs and pleura: ?Lungs are clear no focal infiltrates or mass lesion. Mild degree of inflammatory airway thickening is not excluded along the medial aspect of the bases. No pleural effusion or pneumothorax. Cardiomediastinal silhouette: ?Heart is normal. Mediastinal and hilar contours are unremarkable. Other: ?There is mild generalized osteopenia. Labs, XRAY of chest are acceptable for surgery. 6:52 AM October 22, 2017 Previous Version Aundrea Zacarias MD 10/21/2017 3:01 PM Signed [facility] Patient Instructions for Surgery Go to [facility] (this building second floor to get a chest xray) FOOD INSTRUCTIONS: NO solid food or non-clear liquids for 8 hours prior to the arrival time for your surgery. Unless you are instructed otherwise, you are allowed to drink up to 12 ounces of clear liquids (e.g. water, black tea/coffee, fruit juice without pulp, Raj Tiffany, etc.) up until 2 hours prior to the arrival time for surgery. MEDICATION INSTRUCTIONS: Prior to Surgery: Do not take the following medications for 7 days prior to surgery: - any NSAID's (e.g. Motrin, Aleve, Arthrotec, Naproxen,etc) - any herbal preparations - Aspirin or aspirin containing products Do not take any Vitamin E / multivitamins for 10-14 days before surgery You are allowed to take Tylenol if needed until the day of surgery. Please bring your inhalers and or CPAP/BiPAP machine and mask when you come for your surgery. MEDICATION INSTRUCTIONS: Day/Morning of Surgery: The following medications should be taken with sips of water: Atenolol, Cogentin, Clozaril, Ativan, Perphenazine, and if needed, use your Proventil inhailer DIABETES MANAGEMENT INSTRUCTIONS: Eat a usual diet until the day prior to surgery unless indicated by your surgeon/physician. If your blood sugar is below 70 mg/dl at any time, treat with ? cup of apple juice or raj tiffany, or 4 glucose tabs or 1 tube of oral glucose gel. MEDICATION INSTRUCTIONS: Prior to Surgery: ? Continue all diabetic pills as scheduled including the evening prior to surgery. MEDICATION INSTRUCTIONS: Day/Morning of Surgery: ? Do not take your Diabetic pills. If you have any questions or concerns regarding today's visit please do not hesitate to contact the [facility] center at [phone] or [phone], ext [phone]. Signature: Aundrea Zacarias MD Date: October 21, 2017 CBC W/DIFF, AUTOMATED Collected: 08/26/2017 Status: F Source: [place] 9:24 AM [facility] REPOSITORY TYPE CODE TESTS RESULT OUT OF RANGE REFERENCE UNITS LAB L100.1000 4.4-11.0 K/mm3 Normal WBC 5.8 LAB L100.1200 4.6-6.2 M/mm3 Normal RBC 5.47 LAB L100.1300 13.0-16.5 g/dl Normal HGB 16.1 LAB L100.1400 40-54 % Normal HCT 46.2 LAB L100.1500 80-94 fL Normal MCV 84.5 LAB L100.1600 27.0-32.0 pg Normal MCH 29.4 LAB L100.1700 32-36 g/gl Normal MCHC 34.8 LAB L100.1810 11.6-14.6 % Normal RDW CV 13.3 LAB L100.1820 35.1-43.9 fl Normal RDW SD 41.4 LAB L100.1900 150-450 K/mm3 Normal PLT 170 LAB L100.2000 6.2-12.0 fl Normal MPV 12.0 LAB L100.2100 47-70 % Normal NEUT% 58.3 LAB L100.2200 19-41 % Normal LY% 28.0 LAB L100.2300 0-10 % High MONO% 10.4 LAB L100.2400 0-5 % Normal EO% 2.4 LAB L100.2500 0-1 % Normal BASO% 0.7 LAB L100.2550 0.0-0.9 % Normal IM GRAN % 0.200 Result Comment: IG% - Immature Granulocytes (promyelocytes, myelocytes and metamyelocytes) > 1% indicates that a LEFT SHIFT is Present. LAB L100.2620 2.0-7.7 X10 3/uL Normal Absolute Neut 3.4 LAB L100.2720 0.83-4.51 X10 3/ul Normal Absolute Lymph 1.61 Performed By: #### L100.0100 #### [facility] [address] [place], [address] XR ABDOMEN 1V SUPINE Observed: 08/20/2017 Status: F Source: [place] 8:17 AM [facility] REPOSITORY * * *Final Report* * * DATE OF EXAM: Aug 20 2017 8:17AM [id number] - XR ABDOMEN 1V SUPINE / PROCEDURE REASON: multiple diagnoses * * * * Physician Interpretation * * * * HISTORY: Constipation. Sitzmark examination COMPARISON: Comparison is made to prior abdomen study dated 18 August 2017 and 16 August 2017 RESULT: 4 views of the abdomen demonstrate a nonobstructive bowel gas pattern with significant fecal retention. Scattered Sitzmarks are seen throughout the colon. 4 Sitzmarks are seen within the hepatic flexure, 6 within the transverse colon and approximately 9 within the left colon. 3 are visualized within the sigmoid colon. IMPRESSION: Findings as detailed in report. Facility Maintenance Technician: GISELEB Transcribe Date/Time: Aug 20 2017 11:16A Dictated by : JONO BATRES MD This examination was interpreted and the report reviewed and electronically signed by: JONO BATRES MD on Aug 20 2017 11:19AM EST [id number] PROGRESS Observed: 08/20/2017 Status: COMPLETED Source: [place] 8:00 AM [facility] REPOSITORY HNO ID: [id number] Author: Amanda OrtegaRt) Artie Gupta Service: (none) Author Type: Imagery Intelligence Type: Progress Notes Filed: 08/20/2017 8:33 AM Note Text: Radiology Service Progress Note PATIENT NAME: Faith Ghosh DATE OF SERVICE: August 20, 2017 TIME: 8:00 AM PATIENT IDENTITY VERIFICATION COMPLETED USING TWO (2) METHODS: Patient confirmed name verbally and Date of . PATIENT GENDER DATA: Male PATIENT RELEVANT IMPLANT DATA REVIEWED: Not Applicable RADIOLOGY DEPARTMENT: General X-ray: Exam(s) Completed: Abdomen X-Ray Abdomen PERIPHERAL IV DATA: Not applicable SIGNED BY: RT Valdo August 20, 2017 8:00 AM PROGRESS Observed: 08/18/2017 Status: COMPLETED Source: [place] 8:54 AM [facility] REPOSITORY HNO ID: [id number] Author: Artie Solo (Rt) Service: (none) Author Type: Imagery Intelligence Type: Progress Notes Filed: 08/18/2017 8:54 AM Note Text: Radiology Service Progress Note PATIENT NAME: Faith Ghosh DATE OF SERVICE: August 18, 2017 TIME: 8:54 AM PATIENT IDENTITY VERIFICATION COMPLETED USING TWO (2) METHODS: Patient confirmed name verbally and Date of . PATIENT GENDER DATA: Male PATIENT RELEVANT IMPLANT DATA REVIEWED: Not Applicable RADIOLOGY DEPARTMENT: General X-ray: Exam(s) Completed: Abdomen X-Ray Abdomen, Second set of images for colonic transit study PERIPHERAL IV DATA: Not applicable SIGNED BY: RT Edil August 18, 2017 8:54 AM XR ABDOMEN 1V SUPINE Observed: 08/18/2017 Status: F Source: [place] 8:50 AM [facility] REPOSITORY * * *Final Report* * * DATE OF EXAM: Aug 18 2017 8:50AM [id number] - XR ABDOMEN 1V SUPINE / PROCEDURE REASON: multiple diagnoses * * * * Physician Interpretation * * * * Indication: Constipation Comparison: None Colonic transit study was performed. There is a nonobstructed bowel gas pattern. There is no hepatomegaly or splenomegaly. There is a large amount of fecal material throughout the colon. On images labeled image 1 there are 5 markers in the ascending colon, 4 markers in the transverse colon and 14 markers in the sigmoid colon. On images labeled film 2 there is one marker in the ascending colon. There are 4 markers at the hepatic flexure and 16 markings in the transverse colon. There are no markers in the sigmoid colon or rectum. Impression: Colonic transit study as described above Facility Maintenance Technician: ADRY Transcribe Date/Time: Aug 18 2017 1:06P Dictated by : SHRAVAN ANDERS MD This examination was interpreted and the report reviewed and electronically signed by: SHRAVAN ANDERS MD on Aug 18 2017 1:11PM EST [id number] XR ABDOMEN 1V SUPINE Observed: 08/16/2017 Status: F Source: [place] 8:46 AM [facility] REPOSITORY * * *Final Report* * * DATE OF EXAM: Aug 16 2017 8:46AM [id number] - XR ABDOMEN 1V SUPINE / PROCEDURE REASON: multiple diagnoses * * * * Physician Interpretation * * * * Indication: Constipation Comparison: None Colonic transit study was performed. There is a nonobstructed bowel gas pattern. There is no hepatomegaly or splenomegaly. There is a large amount of fecal material throughout the colon. On images labeled image 1 there are 5 markers in the ascending colon, 4 markers in the transverse colon and 14 markers in the sigmoid colon. On images labeled film 2 there is one marker in the ascending colon. There are 4 markers at the hepatic flexure and 16 markings in the transverse colon. There are no markers in the sigmoid colon or rectum. Impression: Colonic transit study as described above Facility Maintenance Technician: ADRY Transcribe Date/Time: Aug 18 2017 1:06P Dictated by : SHRAVAN ANDERS MD This examination was interpreted and the report reviewed and electronically signed by: SHRAVAN ANDERS MD on Aug 18 2017 1:11PM EST [id number] PROGRESS Observed: 08/16/2017 Status: COMPLETED Source: [place] 8:34 AM [facility] REPOSITORY HNO ID: [id number] Author: German Kuhn () Artie Perry Service: (none) Author Type: Imagery Intelligence Type: Progress Notes Filed: 08/16/2017 8:44 AM Note Text: Radiology Service Progress Note PATIENT NAME: Faith Ghosh DATE OF SERVICE: August 16, 2017 TIME: 8:34 AM PATIENT IDENTITY VERIFICATION COMPLETED USING TWO (2) METHODS: Patient confirmed name verbally and Date of . PATIENT GENDER DATA: Male PATIENT RELEVANT IMPLANT DATA REVIEWED: Not Applicable RADIOLOGY DEPARTMENT: General X-ray: Exam(s) Completed: Abdomen X-Ray Abdomen Colonic transit study PERIPHERAL IV DATA: Not applicable SIGNED BY: RT Mimi August 16, 2017 8:34 AM PROGRESS Observed: 08/12/2017 Status: COMPLETED Source: [place] 3:41 PM [facility] REPOSITORY HNO ID: [id number] Author: Anne Fowler Service: (none) Author Type: Physician Type: Progress Notes Filed: 08/12/2017 4:28 PM Note Text: HPI Faith Ghosh is a 57 year old male here today for discuss constipation/ diarrhea. Complaining of abdominal pain for the last 3 days. Takes Miralax once a week to have bowel movement. Patient with h/o constipation, for the past 5 years. Taking miralax, linzess once a week. Having diarrhea 1 x week after getting the medication. No bm without the medication. Patient is asking for surgery Manometry in February: Normal resting and squeeze pressures. Low volume studies. RAIR present. Paradoxical contraction during defecometry. Patient unable to expel balloon. Colonoscopy in 2017 - poor bowel prep. Diabetic, in use of metformin. Lives with mother. Current Outpatient Prescriptions: KELP ORAL Take by mouth. linaclotide (LINZESS) 290 mcg cap Take by mouth once daily. CYANOCOBALAMIN, VITAMIN B-12, (B-12 DOTS ORAL) Take by mouth. Ascorbic Acid (VITAMIN C) 100 mg tablet Take 100 mg by mouth once daily. DOCOSAHEXANOIC ACID/EPA (FISH OIL ORAL) Take by mouth once daily. cloZAPine (CLOZARIL) 100 mg tablet Take 100 mg by mouth once daily. Two tablets daily hydroCHLOROthiazide (HYDRODIURIL, ESIDRIX) 50 mg tablet Take 50 mg by mouth once daily. benztropine (COGENTIN) 1 mg tablet Take 1 mg by mouth twice daily. montelukast (SINGULAIR) 10 mg tablet TAKE 1 TABLET BY MOUTH DAILY AT BEDTIME. Magnesium Oxide 500 mg tab Take 500 mg by mouth once daily. metFORMIN (GLUCOPHAGE) 1,000 mg tablet Take 1,000 mg by mouth daily with breakfast. polyethylene glycol 3350 (MIRALAX) 17 gram/dose powder Take 17 g by mouth once daily. (Patient taking differently: Take 17 g by mouth twice daily.) JANUMET XR 50-1,000 mg TM24 TAKE 1 TABLET BY MOUTH TWICE A DAY lovastatin (MEVACOR) 20 mg tablet Take 1 tablet by mouth daily at bedtime. atenolol (TENORMIN) 25 mg tablet Take 1 tablet by mouth twice daily. (Patient taking differently: Take 25 mg by mouth once daily. ) omega-3 acid ethyl esters (LOVAZA) 1 gram capsule Take 2 capsules by mouth twice daily. Blood-Glucose Meter (ONETOUCH ULTRA2) monitoring kit 1 Each as needed. One Touch Meter Kit Diagnosis: Type 2 DM - Controlled E11.9 Test twice a day as directed, NO insulin blood sugar diagnostic (ONETOUCH ULTRA TEST) test strip Test blood sugar(s) 2 times daily. Dx: Type 2 DM - Controlled E11.9 Insulin: No lancets (FREESTYLE LANCETS) 28 gauge misc Test once daily. Dx: E11.9 - Insulin - No lisinopril 2.5 mg tablet Take 1 tablet by mouth once daily. perphenazine 8 mg tablet Take 1 tablet by mouth four times daily. LORazepam (ATIVAN) 2 mg tab Take 1 tablet by mouth twice daily. hydrOXYzine pamoate (VISTARIL) 50 mg capsule Take 1 capsule by mouth three times daily as needed. yj-EQ-ZP-Vs-Mwt-Guxxdbb-Lutein (CENTRUM) 0.4-162-18 mg tab Take 1 tablet by mouth once daily. aspirin, enteric coated (ADULT LOW DOSE ASPIRIN) 81 mg EC tablet Take 1 tablet by mouth once daily. pantoprazole DR (PROTONIX) 40 mg tablet Take 40 mg by mouth once daily. lubiprostone (AMITIZA) 24 mcg capsule Take 1 capsule by mouth twice daily with meals. No current facility-administered medications for this visit. ALLERGIES No Known Allergies Social History Substance Use Topics - Smoking status: Current Every Day Smoker Packs/day: 0.50 Years: 25.00 Types: Cigarettes - Smokeless tobacco: Never Used - Alcohol use No Comment: 2/month PAST MEDICAL HISTORY Diagnosis Date - Anxiety - Auditory hallucinations - Constipation - COPD (chronic obstructive pulmonary disease) (HCC) - Diabetes (HCC) - Hyperlipidemia - Hypertension PAST SURGICAL HISTORY Procedure Laterality Date - COLONOSCOP W/ OR W/O [facility] SPEC 08/19/2016 poor prep - BE ordered - COLONOSCOPY about 3-4 years ago - EXTRACTION ERUPTED TOOTH/EXR - KNEE SURGERY HX 1988 right FAMILY HISTORY Problem Relation Age of Onset - Diabetes Paternal Aunt PHYSICAL EXAM Ht 6' 1 (1.85m) Wt 213 lb 9.6 oz (96.9kg) BMI 28.19 kg/(m2). General Appearance: Well appearing, alert, in no acute distress, well-hydrated, well nourished. Skin: Skin color, texture, turgor normal, no suspicious rashes or lesions Head: Normocephalic, no masses, lesions, tenderness or abnormalities Oropharynx: Lips, mucosa, and tongue normal, oropharynx normal Neck: Supple, no adenopathy; thyroid symmetric, normal size, no bruits Lungs: Lungs clear to auscultation. No wheezing, rhonchi, rales Heart: RRR without murmur, gallop, or rubs. No ectopy Extremities: No deformities, edema, skin discoloration, clubbing or cyanosis. Good capillary refill. Neuro: Negative. Abdomen: Abdomen soft, non-tender. Bowel sounds normal. No masses, organomegaly I have personally examined the patient and repeated the munoz components of the exam/history. The assessment and plan were formulated and discussed with the resident/fellow. See fellow's note for further details. Assessment Pt with at least outlet obstruction constipation Plan 1. Will obtain Sitzmark study to assess motility in remainder of GI tract 2. Plan for laparoscopic colostomy v/s ileostomy pending results of study 3. Discussed referral for ongoing biofeedback but he declines Anne Fowler MD DATE: 08/12/17 TIME: 3:41 PM CNOV Observed: 08/12/2017 Status: COMPLETED Source: [place] 3:40 PM [facility] REPOSITORY Office Visit (FREDDYDyan) FAITH GHOSH ([id number]) 1960 M Date Time Provider Department 08/12/17 3:40 PM ANNE FOWLER During your visit today, we recorded the following information about you: Weight Height 96.9 kg 1.854 m Anne Fowler MD 08/12/2017 4:28 PM Signed HPI Faith Ghosh is a 57 year old male here today for discuss constipation/ diarrhea. Complaining of abdominal pain for the last 3 days. Takes Miralax once a week to have bowel movement. Patient with h/o constipation, for the past 5 years. Taking miralax, linzess once a week. Having diarrhea 1 x week after getting the medication. No bm without the medication. Patient is asking for surgery Manometry in February: Normal resting and squeeze pressures. Low volume studies. RAIR present. Paradoxical contraction during defecometry. Patient unable to expel balloon. Colonoscopy in 2016 - poor bowel prep. Diabetic, in use of metformin. Lives with mother. Current Outpatient Prescriptions: KELP ORAL Take by mouth. linaclotide (LINZESS) 290 mcg cap Take by mouth once daily. CYANOCOBALAMIN, VITAMIN B-12, (B-12 DOTS ORAL) Take by mouth. Ascorbic Acid (VITAMIN C) 100 mg tablet Take 100 mg by mouth once daily. DOCOSAHEXANOIC ACID/EPA (FISH OIL ORAL) Take by mouth once daily. cloZAPine (CLOZARIL) 100 mg tablet Take 100 mg by mouth once daily. Two tablets daily hydroCHLOROthiazide (HYDRODIURIL, ESIDRIX) 50 mg tablet Take 50 mg by mouth once daily. benztropine (COGENTIN) 1 mg tablet Take 1 mg by mouth twice daily. montelukast (SINGULAIR) 10 mg tablet TAKE 1 TABLET BY MOUTH DAILY AT BEDTIME. Magnesium Oxide 500 mg tab Take 500 mg by mouth once daily. metFORMIN (GLUCOPHAGE) 1,000 mg tablet Take 1,000 mg by mouth daily with breakfast. polyethylene glycol 3350 (MIRALAX) 17 gram/dose powder Take 17 g by mouth once daily. (Patient taking differently: Take 17 g by mouth twice daily.) JANUMET XR 50-1,000 mg TM24 TAKE 1 TABLET BY MOUTH TWICE A DAY lovastatin (MEVACOR) 20 mg tablet Take 1 tablet by mouth daily at bedtime. atenolol (TENORMIN) 25 mg tablet Take 1 tablet by mouth twice daily. (Patient taking differently: Take 25 mg by mouth once daily. ) omega-3 acid ethyl esters (LOVAZA) 1 gram capsule Take 2 capsules by mouth twice daily. Blood-Glucose Meter (ONETOUCH ULTRA2) monitoring kit 1 Each as needed. One Touch Meter Kit Diagnosis: Type 2 DM - Controlled E11.9 Test twice a day as directed, NO insulin blood sugar diagnostic (ONETOUCH ULTRA TEST) test strip Test blood sugar(s) 2 times daily. Dx: Type 2 DM - Controlled E11.9 Insulin: No lancets (FREESTYLE LANCETS) 28 gauge misc Test once daily. Dx: E11.9 - Insulin - No lisinopril 2.5 mg tablet Take 1 tablet by mouth once daily. perphenazine 8 mg tablet Take 1 tablet by mouth four times daily. LORazepam (ATIVAN) 2 mg tab Take 1 tablet by mouth twice daily. hydrOXYzine pamoate (VISTARIL) 50 mg capsule Take 1 capsule by mouth three times daily as needed. oc-PN-HR-Lq-Gvk-Msvjnez-Lutein (CENTRUM) 0.4-162-18 mg tab Take 1 tablet by mouth once daily. aspirin, enteric coated (ADULT LOW DOSE ASPIRIN) 81 mg EC tablet Take 1 tablet by mouth once daily. pantoprazole DR (PROTONIX) 40 mg tablet Take 40 mg by mouth once daily. lubiprostone (AMITIZA) 24 mcg capsule Take 1 capsule by mouth twice daily with meals. No current facility-administered medications for this visit. ALLERGIES No Known Allergies Social History Substance Use Topics - Smoking status: Current Every Day Smoker Packs/day: 0.50 Years: 25.00 Types: Cigarettes - Smokeless tobacco: Never Used - Alcohol use No Comment: 2/month PAST MEDICAL HISTORY Diagnosis Date - Anxiety - Auditory hallucinations - Constipation - COPD (chronic obstructive pulmonary disease) (HCC) - Diabetes (HCC) - Hyperlipidemia - Hypertension PAST SURGICAL HISTORY Procedure Laterality Date - COLONOSCOP W/ OR W/O [facility] SPEC 08/19/2016 poor prep - BE ordered - COLONOSCOPY about 3-4 years ago - EXTRACTION ERUPTED TOOTH/EXR - KNEE SURGERY HX 1987 right FAMILY HISTORY Problem Relation Age of Onset - Diabetes Paternal Aunt PHYSICAL EXAM Ht 6' 1ANDquot; (1.85m) Wt 213 lb 9.6 oz (96.9kg) BMI 28.19 kg/(m2). General Appearance: Well appearing, alert, in no acute distress, well-hydrated, well nourished. Skin: Skin color, texture, turgor normal, no suspicious rashes or lesions Head: Normocephalic, no masses, lesions, tenderness or abnormalities Oropharynx: Lips, mucosa, and tongue normal, oropharynx normal Neck: Supple, no adenopathy; thyroid symmetric, normal size, no bruits Lungs: Lungs clear to auscultation. No wheezing, rhonchi, rales Heart: RRR without murmur, gallop, or rubs. No ectopy Extremities: No deformities, edema, skin discoloration, clubbing or cyanosis. Good capillary refill. Neuro: Negative. Abdomen: Abdomen soft, non-tender. Bowel sounds normal. No masses, organomegaly I have personally examined the patient and repeated the munoz components of the exam/history. The assessment and plan were formulated and discussed with the resident/fellow. See fellow's note for further details. Assessment Pt with at least outlet obstruction constipation Plan 1. Will obtain Sitzmark study to assess motility in remainder of GI tract 2. Plan for laparoscopic colostomy v/s ileostomy pending results of study 3. Discussed referral for ongoing biofeedback but he declines Anne Fowler MD DATE: 08/12/17 TIME: 3:41 PM Referring Provider: KELTON SMITH ([facility]) [[id number]] Allergies As of Date: 08/12/2017 (No Known Allergies) Date Reviewed: 08/12/2017 Reviewed by: Anne Fowler - Fully Assessed Reason for Visit: Established Patient [175] Cmt: stomach pains Primary Visit Diagnosis:Pelvic floor dysfunction [M62.89] Other Visit Diagnosis:Outlet dysfunction constipation [K59.02] Order(s):Radiopaque PVC Markers-Barium (SITZMARKS) 24 Markers capTake Capsule on Wednesday You will have x-rays on Wednesday, Wednesday and Wednesday Do not take laxatives during this examDisp: 1 capsuleRfl: 0 XR ABDOMEN 1V SUPINE [[id number]] Order #: [id number] FUTURE XR ABDOMEN 1V SUPINE [[id number]] Order #: [id number] FUTURE XR ABDOMEN 1V SUPINE [[id number]] Order #: [id number] FUTURE Prescriptions as of 08/12/2017 Sig: KELP ORAL Take by mouth. LINACLOTIDE 290 MCG CAPSULE Take by mouth once daily. B-12 DOTS ORAL Take by mouth. ASCORBIC ACID (VITAMIN C) 100* Take 100 mg by mouth once francois* FISH OIL ORAL Take by mouth once daily. CLOZAPINE 100 MG TABLET Take 100 mg by mouth once francois* HYDROCHLOROTHIAZIDE 50 MG TAB* Take 50 mg by mouth once frederic* BENZTROPINE 1 MG TABLET Take 1 mg by mouth twice frederic* MONTELUKAST 10 MG TABLET TAKE 1 TABLET BY MOUTH DAILY * MAGNESIUM OXIDE 500 MG TABLET Take 500 mg by mouth once francois* METFORMIN 1,000 MG TABLET Take 1,000 mg by mouth daily * POLYETHYLENE GLYCOL 3350 17 G* Take 17 g by mouth once daily. Patient taking differently: Take 17 g by mouth twice frederic* JANUMET XR 50 MG-1,000 MG TAB* TAKE 1 TABLET BY MOUTH TWICE * LOVASTATIN 20 MG TABLET Take 1 tablet by mouth daily * ATENOLOL 25 MG TABLET Take 1 tablet by mouth twice * Patient taking differently: Take 25 mg by mouth once frederic* OMEGA-3 ACID ETHYL ESTERS 1 G* Take 2 capsules by mouth twic* BLOOD-GLUCOSE METER KIT 1 Each as needed. One Touch M* BLOOD SUGAR DIAGNOSTIC STRIPS Test blood sugar(s) 2 times d* LANCETS 28 GAUGE Test once daily. Dx: E11.9 -* LISINOPRIL 2.5 MG TABLET Take 1 tablet by mouth once d* PERPHENAZINE 8 MG TABLET Take 1 tablet by mouth four t* LORAZEPAM 2 MG TABLET Take 1 tablet by mouth twice * HYDROXYZINE PAMOATE 50 MG CAP* Take 1 capsule by mouth three* QZRZLOHK-GOH-OL 0.4 MG-CALCIU* Take 1 tablet by mouth once d* ASPIRIN 81 MG TABLET,DELAYED * Take 1 tablet by mouth once d* RADIOPAQUE PVC MARKERS-BARIUM* Take Capsule on Wednesday w* PANTOPRAZOLE 40 MG TABLET,DEL* Take 40 mg by mouth once frederic* LUBIPROSTONE 24 MCG CAPSULE Take 1 capsule by mouth twice* Medication notes this encounter KELP ORAL >> Megan Dykes 08/12/2017 3:37 PM >> MEGAN CHEUNG [facility] Aug 12, 2017 3:37 PM Not taking POLYETHYLENE GLYCOL 3350 17 GRAM/DOSE ORAL POWDER >> Megan Maricruz Dumontcus Ca 08/12/2017 3:40 PM >> MEGAN CHEUNG [facility] Aug 12, 2017 3:40 PM prn JANUMET XR 50 MG-1,000 MG TABLET,EXTENDED RELEASE >> Megan Dumontcus Ca 08/12/2017 3:37 PM >> MEGAN CHEUNG [facility] Aug 12, 2017 3:37 PM Ran out of it >> Megan Dumontcus Ca 08/12/2017 3:37 PM >> VINICIOANA MEGAN DYKES [facility] Aug 12, 2017 3:37 PM PANTOPRAZOLE 40 MG TABLET,DELAYED RELEASE >> Meganvaleria Dumontcus Ca 08/12/2017 3:39 PM >> MEGAN CHEUNG [facility] Aug 12, 2017 3:39 PM Not taking LUBIPROSTONE 24 MCG CAPSULE >> Megan Dumontcus Ca 08/12/2017 3:38 PM >> MEGAN CHEUNG [facility] Aug 12, 2017 3:38 PM Not taking Problem List As Of Date 08/12/2017 Noted Resolved Diabetes (HCC) [E11.9] INVALID FOR* More... Hypertension [I10] INVALID FOR* More... Hyperlipidemia [E78.5] INVALID FOR* More... Paranoid schizophrenia (HCC) [F20.0] INVALID FOR* More... COPD (chronic obstructive pulmonary disease) (H*INVALID FOR* More... Blood per rectum [K62.5] INVALID FOR* Constipation [K59.00] INVALID FOR* Outlet dysfunction constipation [K59.02] INVALID FOR* Pelvic floor dysfunction [M62.89] INVALID FOR* Prescriptions ordered this encounter Disp Refills Start End RADIOPAQUE PVC MARKERS-BARIUM SULFAT* 1 ca* 0 08/12/2017 Class: Print RX Sig: Take Capsule on Wednesday You will have x-rays on Wednesday, Wednesday and Wednesday Do not take laxatives during this exam Encounter Status:Closed by ANNE FOWLER MD on 08/12/17 CBC W/DIFF, AUTOMATED Collected: 07/29/2017 Status: F Source: [place] 9:11 AM [facility] [place] REPOSITORY TYPE CODE TESTS RESULT OUT OF RANGE REFERENCE UNITS LAB L100.1000 4.4-11.0 K/mm3 Normal WBC 6.4 LAB L100.1200 4.6-6.2 M/mm3 Normal RBC 5.73 LAB L100.1300 13.0-16.5 g/dl High HGB 16.7 LAB L100.1400 40-54 % Normal HCT 49.6 LAB L100.1500 80-94 fL Normal MCV 86.6 LAB L100.1600 27.0-32.0 pg Normal MCH 29.1 LAB L100.1700 32-36 g/gl Normal MCHC 33.7 LAB L100.1810 11.6-14.6 % Normal RDW CV 13.9 LAB L100.1820 35.1-43.9 fl Normal RDW SD 43.6 LAB L100.1900 150-450 K/mm3 Normal PLT 183 LAB L100.2000 6.2-12.0 fl Normal MPV 10.9 LAB L100.2100 47-70 % Normal NEUT% 54.2 LAB L100.2200 19-41 % Normal LY% 31.4 LAB L100.2300 0-10 % Normal MONO% 9.8 LAB L100.2400 0-5 % Normal EO% 4.1 LAB L100.2500 0-1 % Normal BASO% 0.5 LAB L100.2550 0.0-0.9 % Normal IM GRAN % 0.000 Result Comment: IG% - Immature Granulocytes (promyelocytes, myelocytes and metamyelocytes) > 1% indicates that a LEFT SHIFT is Present. LAB L100.2620 2.0-7.7 X10 3/uL Normal Absolute Neut 3.5 LAB L100.2720 0.83-4.51 X10 3/ul Normal Absolute Lymph 2.01 Performed By: #### L100.0100 #### [facility] [address] [place] [address]. [place], [place], [id number] PROGRESS Observed: 07/26/2017 Status: COMPLETED Source: [place] 8:53 AM [facility] REPOSITORY HNO ID: [id number] Author: Kelton Goodwin (Leticia) James Service: (none) Author Type: Nurse Practitioner Type: Progress Notes Filed: 07/26/2017 9:27 AM Note Text: DEPARTMENT OF GASTROENTEROLOGY - NEW PATIENT/CONSULT REASON FOR VISIT Faith Ghosh is a 57 year old male here for f/u of chronic constipation. HISTORY OF PRESENT ILLNESS Faith Ghosh is a 57 year old male who presents today for f/u of constipation. 57 y/o male here for f/u constipation. LS 06/30 by Velma. On Linzess 290, Amitiza 24mcg, BID Miralax, Metamucil, 500mg Mg. Still 10 days without bm. S/p pelvic floor therapy. Has seen [facility] for surgical option. Plan was for fleets enemas q 2-3 days. Was supposed to see physician? Needs TSH. X ray last year with significant constipation. ARM was pos 2017. Poor prep on colon 2017. Dr. Fowler is colorectal surgeon considering diversion surgery. Enemas: q 2-3 days,only gets gas out Failed dulcolax suppositories Has had constipation since Pelvic floor therapy was a little helpful Still only has bms q 10 days. Takes a bottle of magnesium citrate which causes him to have diarrhea. 5 hours of bms. Has incontinence. Has to wear a diaper. Still takes the Linzess, Amitiza, Miralax QD, and Mg daily. Appetite is good. No nausea. LLQ pain that improves after bms. Bloating. No rectal bleeding. Cogentin causes lots of dry mouth and seems to worsen the constipation. COPD- breathing is OK. Smokes 15 cigarettes daily. Feels that the DM is well controlled BP is low today. He is dehydrated. Only drinks 5 cups of water daily. A little dizzy with standing. No CP or SOB. PAST MEDICAL HISTORY Diagnosis Date - Anxiety - Auditory hallucinations - Constipation - COPD (chronic obstructive pulmonary disease) (HCC) - Diabetes (HCC) - Hyperlipidemia - Hypertension PAST SURGICAL HISTORY Procedure Laterality Date - COLONOSCOP W/ OR W/O [facility] SPEC 08/19/2016 poor prep - BE ordered - COLONOSCOPY about 3-4 years ago - EXTRACTION ERUPTED TOOTH/EXR - KNEE SURGERY HX 1987 right Current Outpatient Prescriptions: KELP ORAL Take by mouth. Disp: Rfl: linaclotide (LINZESS) 290 mcg cap Take by mouth once daily. Disp: Rfl: pantoprazole DR (PROTONIX) 40 mg tablet Take 40 mg by mouth once daily. Disp: Rfl: lubiprostone (AMITIZA) 24 mcg capsule Take 1 capsule by mouth twice daily with meals. Disp: 60 capsule Rfl: 2 Ascorbic Acid (VITAMIN C) 100 mg tablet Take 100 mg by mouth once daily. Disp: Rfl: DOCOSAHEXANOIC ACID/EPA (FISH OIL ORAL) Take by mouth once daily. Disp: Rfl: cloZAPine (CLOZARIL) 100 mg tablet Take 100 mg by mouth once daily. Two tablets daily Disp: Rfl: hydroCHLOROthiazide (HYDRODIURIL, ESIDRIX) 50 mg tablet Take 50 mg by mouth once daily. Disp: Rfl: benztropine (COGENTIN) 1 mg tablet Take 1 mg by mouth twice daily. Disp: Rfl: montelukast (SINGULAIR) 10 mg tablet TAKE 1 TABLET BY MOUTH DAILY AT BEDTIME. Disp: 90 tablet Rfl: 0 Magnesium Oxide 500 mg tab Take 500 mg by mouth once daily. Disp: Rfl: metFORMIN (GLUCOPHAGE) 1,000 mg tablet Take 1,000 mg by mouth daily with breakfast. Disp: Rfl: JANUMET XR 50-1,000 mg TM24 TAKE 1 TABLET BY MOUTH TWICE A DAY Disp: 168 tablet Rfl: 0 lovastatin (MEVACOR) 20 mg tablet Take 1 tablet by mouth daily at bedtime. Disp: 30 tablet Rfl: 12 atenolol (TENORMIN) 25 mg tablet Take 1 tablet by mouth twice daily. (Patient taking differently: Take 25 mg by mouth once daily. ) Disp: 60 tablet Rfl: 12 omega-3 acid ethyl esters (LOVAZA) 1 gram capsule Take 2 capsules by mouth twice daily. Disp: 120 capsule Rfl: 11 lisinopril 2.5 mg tablet Take 1 tablet by mouth once daily. Disp: 30 tablet Rfl: 11 perphenazine 8 mg tablet Take 1 tablet by mouth four times daily. Disp: Rfl: LORazepam (ATIVAN) 2 mg tab Take 1 tablet by mouth twice daily. Disp: Rfl: ob-XP-OT-Rv-Opf-Amvxymv-Lutein (CENTRUM) 0.4-162-18 mg tab Take 1 tablet by mouth once daily. Disp: Rfl: 0 aspirin, enteric coated (ADULT LOW DOSE ASPIRIN) 81 mg EC tablet Take 1 tablet by mouth once daily. Disp: Rfl: 0 CYANOCOBALAMIN, VITAMIN B-12, (B-12 DOTS ORAL) Take by mouth. Disp: Rfl: polyethylene glycol 3350 (MIRALAX) 17 gram/dose powder Take 17 g by mouth once daily. (Patient taking differently: Take 17 g by mouth twice daily.) Disp: 1 Bottle Rfl: 3 Blood-Glucose Meter (ONETOUCH ULTRA2) monitoring kit 1 Each as needed. One Touch Meter Kit Diagnosis: Type 2 DM - Controlled E11.9 Test twice a day as directed, NO insulin Disp: 1 Each Rfl: 0 blood sugar diagnostic (ONETOUCH ULTRA TEST) test strip Test blood sugar(s) 2 times daily. Dx: Type 2 DM - Controlled E11.9 Insulin: No Disp: 50 Strip Rfl: 11 lancets (FREESTYLE LANCETS) 28 gauge misc Test once daily. Dx: E11.9 - Insulin - No Disp: 50 Each Rfl: 11 hydrOXYzine pamoate (VISTARIL) 50 mg capsule Take 1 capsule by mouth three times daily as needed. Disp: Rfl: 0 No current facility-administered medications for this visit. ALLERGIES No Known Allergies Social History Marital status: Single Spouse name: Years of education: Number of children: Occupational History Occupation Employer Comment unemployed Social History Main Topics Smoking status: Current Every Day Smoker Packs/day: 0.50 Years: 20.00 Types: Cigarettes Smokeless status: Never Used Alcohol use: No Comment: 2/month Drug use: No Sexual activity: No FAMILY HISTORY (grandparents, parents, brothers, sisters, aunts, or uncles) Liver Problems: No Ulcerative Colitis: No Crohn's Disease: No Colon Cancer: No Colon Polyps: No IBS: No Celiac disease: No Bleeding Disorders: No GI SPECIFIC REVIEW OF SYMPTOMS Difficulty swallowing / foods sticking in throat: no Heartburn: no Hoarseness: no Chronic cough: no Regurgitation: no Chest pain: no Filling up quickly at meals:no Loss of appetite: no Nausea: no Vomiting: no Abdominal pain: no Recent change in bowel movements: yes Bloody or black, bowel movements: no Constipation: yes Diarrhea: yes Loss of control of bowel movements: yes Night sweats: no Fever: no Chills: no Thought or memory problems: yes Fluid in abdomen (ascites): no Prominent leg swelling: no Vomiting blood: no Recent change in weight: Yes, Review of Systems: Constitutional: Negative for fever, chills, and weight loss Eyes: Negative for vision changes and double vision ENT: Dry mouth Heart: Negative for chest pain Lungs: Negative for shortness of breath and cough GI: See above Neuro: mild dizziness, no presyncope, no h/a Psych: H/o anxiety and depression PAST MEDICAL HISTORY Colon polyps: no Colon cancer: no Other cancer: no Radiation / Chemotherapy: no Crohn's disease / Ulcerative colitis: no High cholesterol or triglycerides: no Ulcers: no Gallstones: no Hepatitis / Jaundice: no Heart Disease: no Lung Disease: no Liver problems: no Thyroid disease: no Kidney stones: no Pancreatitis: no Diabetes: yes Arthritis: no Rheumatic fever: no Gastrointestinal bleeding: no Depression or other mental illness: yes Other personal illness: no PHYSICAL EXAMINATION: 07/26/17 0830 BP: 88/74 Pulse: 102 SpO2: 97% Weight: 99.8 kg (220 lb) Height: 185.4 cm (6' 1) Body mass index is 29.03 kg/(m2). General appearance: Appears well, alert, in no acute distress, well nourished. Skin: Skin color and temperature normal. Head: Normocephalic, atraumatic. Eyes: Anicteric sclera. Oropharynx: Lips normal, oropharynx dry. Lungs: CTAB. Normal effort Heart: RRR, no murmurs. Abdomen: Soft, distended. Bowel sounds present. No masses, no organomegaly. Mild LLQ TTP. Psych: Pleasant affect, cooperative, A+O x3. Assessment IMPRESSION Mr. Ghosh is a 57 year old year old male presents for f/u of severe constipation. He was seen for this last month and has seen [facility] for surgical options. He has failed Linzess 290mcg, Amitiza 24mcg, BID Miralax, Metamucil, dulcolax suppositories, and 500mg Mg. He also failed pelvic floor therapy (+dyssynergia on ARM.) The plan has been for fleets enemas q 2-3 days which are also not helpful. He describes severe overflow incontinence after taking weekly magnesium citrate. He currently has bms q 10-14 days following the mag citrate. He was unable to prep sufficiently for colonoscopy. I suspect that his psych meds are further contributing as well. We discussed hydration today- his BP was quite low. He is not drinking sufficient fluids. We will have him f/u with [facility] to see if he can move forward with diversion surgery for the intractable constipation. TSH for completeness given the fatigue. PLAN -TSH -F/u with [facility] -Work on hydration, discussed this today -ED for worsening dizziness/hypotension, need for prn disimpaction/aggressive enemas was discussed Kelton Smith APRN.LETICIA July 26, 2017 8:36 AM [place] Observed: 07/26/2017 Status: COMPLETED Source: [place] 8:25 AM [facility] REPOSITORY Office Visit (GASTMN) ANDRIYFAITH LLAMAS ([id number]) 1960 M Date Time Provider Department 07/26/17 8:25 AM KELTON SMITH (COIN WRAPPING MACHINE OPERATOR) [place] During your visit today, we recorded the following information about you: Pulse Blood pressure Weight Height 102/minute 88/74 99.8 kg 1.854 m Kelton Smith APRN.LETICIA 07/26/2017 9:27 AM Signed DEPARTMENT OF GASTROENTEROLOGY - NEW PATIENT/CONSULT REASON FOR VISIT Faith Ghosh is a 57 year old male here for f/u of chronic constipation. HISTORY OF PRESENT ILLNESS Faith Ghosh is a 57 year old male who presents today for f/u of constipation. 57 y/o male here for f/u constipation. LS 06/30 by Velma. On Linzess 290, Amitiza 24mcg, BID Miralax, Metamucil, 500mg Mg. Still 10 days without bm. S/p pelvic floor therapy. Has seen [facility] for surgical option. Plan was for fleets enemas q 2-3 days. Was supposed to see physician? Needs TSH. X ray last year with significant constipation. ARM was pos 2017. Poor prep on colon 2017. Dr. Fowler is colorectal surgeon considering diversion surgery. Enemas: q 2-3 days,only gets gas out Failed dulcolax suppositories Has had constipation since Pelvic floor therapy was a little helpful Still only has bms q 10 days. Takes a bottle of magnesium citrate which causes him to have diarrhea. 5 hours of bms. Has incontinence. Has to wear a diaper. Still takes the Linzess, Amitiza, Miralax QD, and Mg daily. Appetite is good. No nausea. LLQ pain that improves after bms. Bloating. No rectal bleeding. Cogentin causes lots of dry mouth and seems to worsen the constipation. COPD- breathing is OK. Smokes 15 cigarettes daily. Feels that the DM is well controlled BP is low today. He is dehydrated. Only drinks 5 cups of water daily. A little dizzy with standing. No CP or SOB. PAST MEDICAL HISTORY Diagnosis Date - Anxiety - Auditory hallucinations - Constipation - COPD (chronic obstructive pulmonary disease) (HCC) - Diabetes (HCC) - Hyperlipidemia - Hypertension PAST SURGICAL HISTORY Procedure Laterality Date - COLONOSCOP W/ OR W/O [facility] SPEC 08/19/2016 poor prep - BE ordered - COLONOSCOPY about 3-4 years ago - EXTRACTION ERUPTED TOOTH/EXR - KNEE SURGERY HX 1987 right Current Outpatient Prescriptions: KELP ORAL Take by mouth. Disp: Rfl: linaclotide (LINZESS) 290 mcg cap Take by mouth once daily. Disp: Rfl: pantoprazole DR (PROTONIX) 40 mg tablet Take 40 mg by mouth once daily. Disp: Rfl: lubiprostone (AMITIZA) 24 mcg capsule Take 1 capsule by mouth twice daily with meals. Disp: 60 capsule Rfl: 2 Ascorbic Acid (VITAMIN C) 100 mg tablet Take 100 mg by mouth once daily. Disp: Rfl: DOCOSAHEXANOIC ACID/EPA (FISH OIL ORAL) Take by mouth once daily. Disp: Rfl: cloZAPine (CLOZARIL) 100 mg tablet Take 100 mg by mouth once daily. Two tablets daily Disp: Rfl: hydroCHLOROthiazide (HYDRODIURIL, ESIDRIX) 50 mg tablet Take 50 mg by mouth once daily. Disp: Rfl: benztropine (COGENTIN) 1 mg tablet Take 1 mg by mouth twice daily. Disp: Rfl: montelukast (SINGULAIR) 10 mg tablet TAKE 1 TABLET BY MOUTH DAILY AT BEDTIME. Disp: 90 tablet Rfl: 0 Magnesium Oxide 500 mg tab Take 500 mg by mouth once daily. Disp: Rfl: metFORMIN (GLUCOPHAGE) 1,000 mg tablet Take 1,000 mg by mouth daily with breakfast. Disp: Rfl: JANUMET XR 50-1,000 mg TM24 TAKE 1 TABLET BY MOUTH TWICE A DAY Disp: 168 tablet Rfl: 0 lovastatin (MEVACOR) 20 mg tablet Take 1 tablet by mouth daily at bedtime. Disp: 30 tablet Rfl: 12 atenolol (TENORMIN) 25 mg tablet Take 1 tablet by mouth twice daily. (Patient taking differently: Take 25 mg by mouth once daily. ) Disp: 60 tablet Rfl: 12 omega-3 acid ethyl esters (LOVAZA) 1 gram capsule Take 2 capsules by mouth twice daily. Disp: 120 capsule Rfl: 11 lisinopril 2.5 mg tablet Take 1 tablet by mouth once daily. Disp: 30 tablet Rfl: 11 perphenazine 8 mg tablet Take 1 tablet by mouth four times daily. Disp: Rfl: LORazepam (ATIVAN) 2 mg tab Take 1 tablet by mouth twice daily. Disp: Rfl: jq-PO-QR-Gr-Wxf-Xexutwz-Lutein (CENTRUM) 0.4-162-18 mg tab Take 1 tablet by mouth once daily. Disp: Rfl: 0 aspirin, enteric coated (ADULT LOW DOSE ASPIRIN) 81 mg EC tablet Take 1 tablet by mouth once daily. Disp: Rfl: 0 CYANOCOBALAMIN, VITAMIN B-12, (B-12 DOTS ORAL) Take by mouth. Disp: Rfl: polyethylene glycol 3350 (MIRALAX) 17 gram/dose powder Take 17 g by mouth once daily. (Patient taking differently: Take 17 g by mouth twice daily.) Disp: 1 Bottle Rfl: 3 Blood-Glucose Meter (ONETOUCH ULTRA2) monitoring kit 1 Each as needed. One Touch Meter Kit Diagnosis: Type 2 DM - Controlled E11.9 Test twice a day as directed, NO insulin Disp: 1 Each Rfl: 0 blood sugar diagnostic (ONETOUCH ULTRA TEST) test strip Test blood sugar(s) 2 times daily. Dx: Type 2 DM - Controlled E11.9 Insulin: No Disp: 50 Strip Rfl: 11 lancets (FREESTYLE LANCETS) 28 gauge misc Test once daily. Dx: E11.9 - Insulin - No Disp: 50 Each Rfl: 11 hydrOXYzine pamoate (VISTARIL) 50 mg capsule Take 1 capsule by mouth three times daily as needed. Disp: Rfl: 0 No current facility-administered medications for this visit. ALLERGIES No Known Allergies Social History Marital status: Single Spouse name: Years of education: Number of children: Occupational History Occupation Employer Comment unemployed Social History Main Topics Smoking status: Current Every Day Smoker Packs/day: 0.50 Years: 20.00 Types: Cigarettes Smokeless status: Never Used Alcohol use: No Comment: 2/month Drug use: No Sexual activity: No FAMILY HISTORY (grandparents, parents, brothers, sisters, aunts, or uncles) Liver Problems: No Ulcerative Colitis: No Crohn's Disease: No Colon Cancer: No Colon Polyps: No IBS: No Celiac disease: No Bleeding Disorders: No GI SPECIFIC REVIEW OF SYMPTOMS Difficulty swallowing / foods sticking in throat: no Heartburn: no Hoarseness: no Chronic cough: no Regurgitation: no Chest pain: no Filling up quickly at meals:no Loss of appetite: no Nausea: no Vomiting: no Abdominal pain: no Recent change in bowel movements: yes Bloody or black, bowel movements: no Constipation: yes Diarrhea: yes Loss of control of bowel movements: yes Night sweats: no Fever: no Chills: no Thought or memory problems: yes Fluid in abdomen (ascites): no Prominent leg swelling: no Vomiting blood: no Recent change in weight: Yes, Review of Systems: Constitutional: Negative for fever, chills, and weight loss Eyes: Negative for vision changes and double vision ENT: Dry mouth Heart: Negative for chest pain Lungs: Negative for shortness of breath and cough GI: See above Neuro: mild dizziness, no presyncope, no h/a Psych: H/o anxiety and depression PAST MEDICAL HISTORY Colon polyps: no Colon cancer: no Other cancer: no Radiation / Chemotherapy: no Crohn's disease / Ulcerative colitis: no High cholesterol or triglycerides: no Ulcers: no Gallstones: no Hepatitis / Jaundice: no Heart Disease: no Lung Disease: no Liver problems: no Thyroid disease: no Kidney stones: no Pancreatitis: no Diabetes: yes Arthritis: no Rheumatic fever: no Gastrointestinal bleeding: no Depression or other mental illness: yes Other personal illness: no PHYSICAL EXAMINATION: 07/26/17 0830 BP: 88/74 Pulse: 102 SpO2: 97% Weight: 99.8 kg (220 lb) Height: 185.4 cm (6' 1ANDquot;) Body mass index is 29.03 kg/(m2). General appearance: Appears well, alert, in no acute distress, well nourished. Skin: Skin color and temperature normal. Head: Normocephalic, atraumatic. Eyes: Anicteric sclera. Oropharynx: Lips normal, oropharynx dry. Lungs: CTAB. Normal effort Heart: RRR, no murmurs. Abdomen: Soft, distended. Bowel sounds present. No masses, no organomegaly. Mild LLQ TTP. Psych: Pleasant affect, cooperative, A+O x3. Assessment IMPRESSION Mr. Ghosh is a 57 year old year old male presents for f/u of severe constipation. He was seen for this last month and has seen [facility] for surgical options. He has failed Linzess 290mcg, Amitiza 24mcg, BID Miralax, Metamucil, dulcolax suppositories, and 500mg Mg. He also failed pelvic floor therapy (+dyssynergia on ARM.) The plan has been for fleets enemas q 2-3 days which are also not helpful. He describes severe overflow incontinence after taking weekly magnesium citrate. He currently has bms q 10-14 days following the mag citrate. He was unable to prep sufficiently for colonoscopy. I suspect that his psych meds are further contributing as well. We discussed hydration today- his BP was quite low. He is not drinking sufficient fluids. We will have him f/u with [facility] to see if he can move forward with diversion surgery for the intractable constipation. TSH for completeness given the fatigue. PLAN -TSH -F/u with [facility] -Work on hydration, discussed this today -ED for worsening dizziness/hypotension, need for prn disimpaction/aggressive enemas was discussed Kelton Smith APRN.COIN WRAPPING MACHINE OPERATOR July 26, 2017 8:36 AM Referring Provider: SELF [[id number]] Allergies As of Date: 07/26/2017 (No Known Allergies) Date Reviewed: 07/26/2017 Reviewed by: Martha Manzanares Ma - Fully Assessed Reason for Visit: New Patient [[id number]] Cmt: Constipation Primary Visit Diagnosis:Constipation, unspecified constipation type [K59.00] Other Visit Diagnoses:Fatigue, unspecified type [R53.83] LLQ abdominal pain [R10.32] Order(s):[facility] BLD [SQTSH] Order #: [id number] FUTURE Prescriptions as of 07/26/2017 Sig: KELP ORAL Take by mouth. LINACLOTIDE 290 MCG CAPSULE Take by mouth once daily. PANTOPRAZOLE 40 MG TABLET,DEL* Take 40 mg by mouth once frederic* LUBIPROSTONE 24 MCG CAPSULE Take 1 capsule by mouth twice* ASCORBIC ACID (VITAMIN C) 100* Take 100 mg by mouth once francois* FISH OIL ORAL Take by mouth once daily. CLOZAPINE 100 MG TABLET Take 100 mg by mouth once francois* HYDROCHLOROTHIAZIDE 50 MG TAB* Take 50 mg by mouth once frederic* BENZTROPINE 1 MG TABLET Take 1 mg by mouth twice frederic* MONTELUKAST 10 MG TABLET TAKE 1 TABLET BY MOUTH DAILY * MAGNESIUM OXIDE 500 MG TABLET Take 500 mg by mouth once francois* METFORMIN 1,000 MG TABLET Take 1,000 mg by mouth daily * JANUMET XR 50 MG-1,000 MG TAB* TAKE 1 TABLET BY MOUTH TWICE * LOVASTATIN 20 MG TABLET Take 1 tablet by mouth daily * ATENOLOL 25 MG TABLET Take 1 tablet by mouth twice * Patient taking differently: Take 25 mg by mouth once frederic* OMEGA-3 ACID ETHYL ESTERS 1 G* Take 2 capsules by mouth twic* LISINOPRIL 2.5 MG TABLET Take 1 tablet by mouth once d* PERPHENAZINE 8 MG TABLET Take 1 tablet by mouth four t* LORAZEPAM 2 MG TABLET Take 1 tablet by mouth twice * FCUEHLKO-MTN-OF 0.4 MG-CALCIU* Take 1 tablet by mouth once d* ASPIRIN 81 MG TABLET,DELAYED * Take 1 tablet by mouth once d* B-12 DOTS ORAL Take by mouth. POLYETHYLENE GLYCOL 3350 17 G* Take 17 g by mouth once daily. Patient taking differently: Take 17 g by mouth twice frederic* BLOOD-GLUCOSE METER KIT 1 Each as needed. One Touch M* BLOOD SUGAR DIAGNOSTIC STRIPS Test blood sugar(s) 2 times d* LANCETS 28 GAUGE Test once daily. Dx: E11.9 -* HYDROXYZINE PAMOATE 50 MG CAP* Take 1 capsule by mouth three* Problem List As Of Date 07/26/2017 Noted Resolved Diabetes (HCC) [E11.9] INVALID FOR* More... Hypertension [I10] INVALID FOR* More... Hyperlipidemia [E78.5] INVALID FOR* More... Paranoid schizophrenia (HCC) [F20.0] INVALID FOR* More... COPD (chronic obstructive pulmonary disease) (H*INVALID FOR* More... Blood per rectum [K62.5] INVALID FOR* Constipation [K59.00] INVALID FOR* Outlet dysfunction constipation [K59.02] INVALID FOR* Pelvic floor dysfunction [M62.89] INVALID FOR* Encounter Status:Closed by KELTON SMITH CNP on 07/26/17 CBC W/DIFF, AUTOMATED Collected: 07/01/2017 Status: F Source: [place] 1:47 PM [facility] REPOSITORY Order Comment: DR TEJEDA ORDERED CMP LIPID TSH DR LAO ORDERED CBCD TYPE CODE TESTS RESULT OUT OF RANGE REFERENCE UNITS LAB L100.1000 4.4-11.0 K/mm3 Normal WBC 6.8 LAB L100.1200 4.6-6.2 M/mm3 Normal RBC 5.34 LAB L100.1300 13.0-16.5 g/dl Normal HGB 15.6 LAB L100.1400 40-54 % Normal HCT 44.5 LAB L100.1500 80-94 fL Normal MCV 83.3 LAB L100.1600 27.0-32.0 pg Normal MCH 29.2 LAB L100.1700 32-36 g/gl Normal MCHC 35.1 LAB L100.1810 11.6-14.6 % Normal RDW CV 13.5 LAB L100.1820 35.1-43.9 fl Normal RDW SD 41.3 LAB L100.1900 150-450 K/mm3 Normal PLT 175 LAB L100.2000 6.2-12.0 fl Normal MPV 11.1 LAB L100.2100 47-70 % Normal NEUT% 56.9 LAB L100.2200 19-41 % Normal LY% 27.2 LAB L100.2300 0-10 % High MONO% 12.9 LAB L100.2400 0-5 % Normal EO% 2.4 LAB L100.2500 0-1 % Normal BASO% 0.3 LAB L100.2550 0.0-0.9 % Normal IM GRAN % 0.300 Result Comment: IG% - Immature Granulocytes (promyelocytes, myelocytes and metamyelocytes) > 1% indicates that a LEFT SHIFT is Present. LAB L100.2620 2.0-7.7 X10 3/uL Normal Absolute Neut 3.9 LAB L100.2720 0.83-4.51 X10 3/ul Normal Absolute Lymph 1.84 Performed By: #### L100.0100 #### [facility] [address] [place], [address] COMPREHENSIVE METABOLIC Collected: 07/01/2017 Status: F Source: [place] 1:47 PM [facility] REPOSITORY Order Comment: Order Date: 06/17/17 Order Info: [id number] - CMP Order Info: [id number] - LIPID Order Info: [id number] - TSH TYPE CODE TESTS RESULT OUT OF RANGE REFERENCE UNITS LAB L501.0100 74-106 mg/dL High GLU 111 Result Comment: Fasting Glucose result from 100 to 125 mg/dL suggests IMPAIRED HOMEOSTASIS per A.D.A. criteria. Please note revised GLUCOSE reference range effective 2017. LAB L501.1000 7-18 mg/dL Normal BUN 17 LAB L501.1100 0.70-1.30 mg/dL Normal CREAT,SERUM 1.26 Result Comment: The validity of the calculated GFR AND GFRAA in patients over 70 years has not been determined. Clinical correlation is essential. LAB L501.1110 >60 mL/min Normal EST GFR 63 Result Comment: Non- GFR Calc LAB L501.1115 >60 mL/min Normal EST GFR - AA 76 Result Comment: GFR Calc LAB L501.1300 10-20 RATIO Normal BUN/CRE 13.5 LAB L501.1500 6.4-8.2 g/dL T Normal PROT 7.3 LAB L501.1800 3.2-5.0 g/dL Normal ALB 3.8 LAB L501.1950 2.2-4.2 g/dL Normal GLOB 3.5 LAB L501.2000 0.9-2.4 RATIO Normal A/G 1.1 LAB L501.2200 8.5-10.1 mg/dL Low CA 8.4 LAB L501.4100 15-37 U/L Low AST 13 LAB L501.4305 45-117 U/L Normal ALK P 74 LAB L501.4405 16-61 U/L Normal ALT 26 Result Comment: Please note revised ALT reference range effective 2017. LAB L501.4600 0.20-1.00 mg/dL High T BILI 1.40 LAB L501.5300 136-145 mmol/L Low NA 135 LAB L501.5600 3.5-5.1 mmol/L Normal K 3.5 LAB L501.5900 98-107 mmol/L Normal CL 101 LAB L501.6100 21.0-32.0 mmol/L Normal CO2 25.0 LAB L501.6200 5-15 Normal GAP 9 Performed By: #### L500.4050, L500.4100, L501.9520 #### [facility] [address] [place], [place], [address] LIPID PROFILE Collected: 07/01/2017 Status: F Source: [place] 1:47 PM [facility] REPOSITORY Order Comment: Order Date: 06/17/17 Order Info: [id number] - CMP Order Info: [id number] - LIPID Order Info: [id number] - TSH TYPE CODE TESTS RESULT OUT OF RANGE REFERENCE UNITS LAB L501.4900 200 mg/dL Normal CHOL 119 Result Comment: <200 mg/dL Desirable 200-240 mg/dL Borderline >240 mg/dL High Risk LAB L501.5000 mg/dL High TRIG 290 Result Comment: The drugs N-Acetylcysteine and Metamizole may falsely depress this assay. Serum Triglycerides Reference Interval Normal <150 mg/dL Borderline high 150 - 199 mg/dL High 200 - 499 mg/dL Very High > or = 500 mg/dL LAB L501.6400 mg/dL Low HDL 26 Result Comment: The drugs N-Acetylcysteine and Metamizole may falsely depress this assay. Reference Range HDL <40 mg/dL Low HDL Cholesterol HDL >or= 60 mg/dL High HDL Cholesterol LAB L501.6500 0-130 mg/dL Normal LDL 35 LAB L501.6600 5-40 mg/dL High VLDL 58 Performed By: #### L500.4050, L500.4100, L501.9520 #### [facility] [address] [place], [place], [address] THYROID STIM HORMONE Collected: 07/01/2017 Status: F Source: [place] (TSH) 1:47 PM [facility] REPOSITORY Order Comment: Order Date: 06/17/17 Order Info: [id number] - CMP Order Info: [id number] - LIPID Order Info: [id number] - TSH TYPE CODE TESTS RESULT OUT OF RANGE REFERENCE UNITS LAB L501.9520 0.358-3.74 uIU/mL Normal TSH 1.20 Performed By: #### L500.4050, L500.4100, L501.9520 #### [facility] [address] [place], [address] PROGRESS Observed: 06/30/2017 Status: COMPLETED Source: [place] 12:49 PM [facility] REPOSITORY HNO ID: [id number] Author: Velma (Leticia) LETICIA Null Service: (none) Author Type: Nurse Practitioner Type: Progress Notes Filed: 06/30/2017 1:46 PM Note Text: DEPARTMENT OF GASTROENTEROLOGY - FOLLOW UP VISIT HISTORY OF PRESENT ILLNESS Faith Ghosh is a 57 year old male who presents today for follow up of constipation. Currently taking Linzess 290 daily and Amitiza 24 BID - feels it does not help Miralax - as needed, every once in awhile Metamucil - as needed, every once in awhile Bowel habits are typically once every 10 days When he does go, hard stool comes out and then diarrhea - Diarrhea lasts 3-4 days Left side abdominal - occurs when he hasn't had a BM in days - gets better with a BM Last BM was 10 days ago Denies any upper abdominal pain, nausea/vomiting, or heartburn Good appetite 03/04/2017 Anorectal Manometry IMPRESSION: Normal resting and squeeze pressures. Low volume studies. RAIR present. Paradoxical contraction during defecometry. Patient unable to expel balloon. Went through 4 weeks of pelvic floor PT Saw [facility] - discussed surgical options which would include fecal diversion - pt does not want surgery of able to prevent it Current Outpatient Prescriptions: linaclotide (LINZESS) 290 mcg cap Take by mouth once daily. Disp: Rfl: pantoprazole DR (PROTONIX) 40 mg tablet Take 40 mg by mouth once daily. Disp: Rfl: lubiprostone (AMITIZA) 24 mcg capsule Take 1 capsule by mouth twice daily with meals. Disp: 60 capsule Rfl: 2 CYANOCOBALAMIN, VITAMIN B-12, (B-12 DOTS ORAL) Take by mouth. Disp: Rfl: Ascorbic Acid (VITAMIN C) 100 mg tablet Take 100 mg by mouth once daily. Disp: Rfl: DOCOSAHEXANOIC ACID/EPA (FISH OIL ORAL) Take by mouth once daily. Disp: Rfl: cloZAPine (CLOZARIL) 100 mg tablet Take 100 mg by mouth once daily. Two tablets daily Disp: Rfl: hydroCHLOROthiazide (HYDRODIURIL, ESIDRIX) 50 mg tablet Take 50 mg by mouth once daily. Disp: Rfl: benztropine (COGENTIN) 1 mg tablet Take 1 mg by mouth twice daily. Disp: Rfl: montelukast (SINGULAIR) 10 mg tablet TAKE 1 TABLET BY MOUTH DAILY AT BEDTIME. Disp: 90 tablet Rfl: 0 Magnesium Oxide 500 mg tab Take 500 mg by mouth once daily. Disp: Rfl: metFORMIN (GLUCOPHAGE) 1,000 mg tablet Take 1,000 mg by mouth daily with breakfast. Disp: Rfl: polyethylene glycol 3350 (MIRALAX) 17 gram/dose powder Take 17 g by mouth once daily. (Patient taking differently: Take 17 g by mouth twice daily.) Disp: 1 Bottle Rfl: 3 JANUMET XR 50-1,000 mg TM24 TAKE 1 TABLET BY MOUTH TWICE A DAY Disp: 168 tablet Rfl: 0 lovastatin (MEVACOR) 20 mg tablet Take 1 tablet by mouth daily at bedtime. Disp: 30 tablet Rfl: 12 atenolol (TENORMIN) 25 mg tablet Take 1 tablet by mouth twice daily. (Patient taking differently: Take 25 mg by mouth once daily. ) Disp: 60 tablet Rfl: 12 omega-3 acid ethyl esters (LOVAZA) 1 gram capsule Take 2 capsules by mouth twice daily. Disp: 120 capsule Rfl: 11 Blood-Glucose Meter (ONETOUCH ULTRA2) monitoring kit 1 Each as needed. One Touch Meter Kit Diagnosis: Type 2 DM - Controlled E11.9 Test twice a day as directed, NO insulin Disp: 1 Each Rfl: 0 blood sugar diagnostic (ONETOUCH ULTRA TEST) test strip Test blood sugar(s) 2 times daily. Dx: Type 2 DM - Controlled E11.9 Insulin: No Disp: 50 Strip Rfl: 11 lancets (FREESTYLE LANCETS) 28 gauge misc Test once daily. Dx: E11.9 - Insulin - No Disp: 50 Each Rfl: 11 lisinopril 2.5 mg tablet Take 1 tablet by mouth once daily. Disp: 30 tablet Rfl: 11 perphenazine 8 mg tablet Take 1 tablet by mouth four times daily. Disp: Rfl: LORazepam (ATIVAN) 2 mg tab Take 1 tablet by mouth twice daily. Disp: Rfl: hydrOXYzine pamoate (VISTARIL) 50 mg capsule Take 1 capsule by mouth three times daily as needed. Disp: Rfl: 0 ut-YC-DO-Jz-Gut-Tdlucoc-Lutein (CENTRUM) 0.4-162-18 mg tab Take 1 tablet by mouth once daily. Disp: Rfl: 0 aspirin, enteric coated (ADULT LOW DOSE ASPIRIN) 81 mg EC tablet Take 1 tablet by mouth once daily. Disp: Rfl: 0 No current facility-administered medications for this visit. ALLERGIES No Known Allergies REVIEW OF SYSTEMS ? Constitutional: Negative for fever, chills, and weight loss Eyes: Negative for vision changes and double vision ENT: Negative for ear pain, nasal discharge, and sore throat Heart: Negative for chest pain Lungs: Negative for shortness of breath and cough GI: See above Musculoskeletal: Negative for joint pain and swelling Neuro: Negative for numbness and tingling Skin: Negative for rashes, lesions, and jaundice Hematologic/Lymphatic: Negative for unusual bruising, bleeding, and swelling Psych: Negative for anxiety and depression PHYSICAL EXAMINATION BP 127/81 Pulse 108 Temp (Src) 97.2 (Oral) Ht 6' 1 (1.85m) Wt 221 lb 9.6 oz (100.5kg) SpO2 97% BMI 29.24 kg/(m2). General appearance: Appears well, alert, in no acute distress, well nourished. Skin: Skin color and temperature normal. No obvious rashes or lesions noted on exposed skin. Head: Normocephalic, atraumatic. No masses or lesions noted. Eyes: Anicteric sclera. Pupils are equally round. Ears: External ears normal Nose/Sinuses: Nares normal, no drainage Oropharynx: Lips normal, oropharynx moist. Lungs: Normal effort Abdomen: Soft, mild distention. Mild left sided abdominal tenderness Extremities: No deformities or pitting pedal edema noted. Psych: Pleasant affect, cooperative, A+O x3. Assessment IMPRESSION Faith Ghosh is a 57 year old male who presents today for follow up of constipation. He is currently taking Linzess 290 mcg daily and Amitiza 24 mg BID and Miralax/Metamucil as needed. He describes 10 days of no BM, followed by a hard BM, and then 3-4 days of diarrhea. He underwent pelvic floor PT for 4 weeks and also discussed surgical options with [facility]. Discussed with patient trying fleets enemas every 2-3 days to prevent a hard stool from forming near the rectum. We also discussed toileting habits and taking a few minutes every day to try to have a BM. Can follow up in 3 months to see if Fleets is helping. PLAN -Continue current medications -Fleets enema every 2-3 days as needed Plan is to follow up in three months. Velma Null CNP June 30, 2017 CNOV Observed: 06/30/2017 Status: COMPLETED Source: [place] 12:40 PM [facility] REPOSITORY Office Visit (GASTMN) FAITH GHOSH ([id number]) 1960 M Date Time Provider Department 06/30/17 12:40 PM VELMA NULL (LETICIA) GASTMN During your visit today, we recorded the following information about you: Temperature Pulse Blood pressure Weight 97.2 degrees 108/minute 127/81 100.5 kg Height 1.854 m Velma Null CNP, CNP 06/30/2017 1:46 PM Signed DEPARTMENT OF GASTROENTEROLOGY - FOLLOW UP VISIT HISTORY OF PRESENT ILLNESS Faith Ghosh is a 57 year old male who presents today for follow up of constipation. Currently taking Linzess 290 daily and Amitiza 24 BID - feels it does not help Miralax - as needed, every once in awhile Metamucil - as needed, every once in awhile Bowel habits are typically once every 10 days When he does go, hard stool comes out and then diarrhea - Diarrhea lasts 3-4 days Left side abdominal - occurs when he hasn't had a BM in days - gets better with a BM Last BM was 10 days ago Denies any upper abdominal pain, nausea/vomiting, or heartburn Good appetite 03/04/2017 Anorectal Manometry IMPRESSION: Normal resting and squeeze pressures. Low volume studies. RAIR present. Paradoxical contraction during defecometry. Patient unable to expel balloon. Went through 4 weeks of pelvic floor PT Saw [facility] - discussed surgical options which would include fecal diversion - pt does not want surgery of able to prevent it Current Outpatient Prescriptions: linaclotide (LINZESS) 290 mcg cap Take by mouth once daily. Disp: Rfl: pantoprazole DR (PROTONIX) 40 mg tablet Take 40 mg by mouth once daily. Disp: Rfl: lubiprostone (AMITIZA) 24 mcg capsule Take 1 capsule by mouth twice daily with meals. Disp: 60 capsule Rfl: 2 CYANOCOBALAMIN, VITAMIN B-12, (B-12 DOTS ORAL) Take by mouth. Disp: Rfl: Ascorbic Acid (VITAMIN C) 100 mg tablet Take 100 mg by mouth once daily. Disp: Rfl: DOCOSAHEXANOIC ACID/EPA (FISH OIL ORAL) Take by mouth once daily. Disp: Rfl: cloZAPine (CLOZARIL) 100 mg tablet Take 100 mg by mouth once daily. Two tablets daily Disp: Rfl: hydroCHLOROthiazide (HYDRODIURIL, ESIDRIX) 50 mg tablet Take 50 mg by mouth once daily. Disp: Rfl: benztropine (COGENTIN) 1 mg tablet Take 1 mg by mouth twice daily. Disp: Rfl: montelukast (SINGULAIR) 10 mg tablet TAKE 1 TABLET BY MOUTH DAILY AT BEDTIME. Disp: 90 tablet Rfl: 0 Magnesium Oxide 500 mg tab Take 500 mg by mouth once daily. Disp: Rfl: metFORMIN (GLUCOPHAGE) 1,000 mg tablet Take 1,000 mg by mouth daily with breakfast. Disp: Rfl: polyethylene glycol 3350 (MIRALAX) 17 gram/dose powder Take 17 g by mouth once daily. (Patient taking differently: Take 17 g by mouth twice daily.) Disp: 1 Bottle Rfl: 3 JANUMET XR 50-1,000 mg TM24 TAKE 1 TABLET BY MOUTH TWICE A DAY Disp: 168 tablet Rfl: 0 lovastatin (MEVACOR) 20 mg tablet Take 1 tablet by mouth daily at bedtime. Disp: 30 tablet Rfl: 12 atenolol (TENORMIN) 25 mg tablet Take 1 tablet by mouth twice daily. (Patient taking differently: Take 25 mg by mouth once daily. ) Disp: 60 tablet Rfl: 12 omega-3 acid ethyl esters (LOVAZA) 1 gram capsule Take 2 capsules by mouth twice daily. Disp: 120 capsule Rfl: 11 Blood-Glucose Meter (NewscronUCH ULTRA2) monitoring kit 1 Each as needed. One Touch Meter Kit Diagnosis: Type 2 DM - Controlled E11.9 Test twice a day as directed, NO insulin Disp: 1 Each Rfl: 0 blood sugar diagnostic (ONETOUCH ULTRA TEST) test strip Test blood sugar(s) 2 times daily. Dx: Type 2 DM - Controlled E11.9 Insulin: No Disp: 50 Strip Rfl: 11 lancets (FREESTYLE LANCETS) 28 gauge misc Test once daily. Dx: E11.9 - Insulin - No Disp: 50 Each Rfl: 11 lisinopril 2.5 mg tablet Take 1 tablet by mouth once daily. Disp: 30 tablet Rfl: 11 perphenazine 8 mg tablet Take 1 tablet by mouth four times daily. Disp: Rfl: LORazepam (ATIVAN) 2 mg tab Take 1 tablet by mouth twice daily. Disp: Rfl: hydrOXYzine pamoate (VISTARIL) 50 mg capsule Take 1 capsule by mouth three times daily as needed. Disp: Rfl: 0 lo-IF-ZL-Sh-Pnw-Bbfiems-Lutein (CENTRUM) 0.4-162-18 mg tab Take 1 tablet by mouth once daily. Disp: Rfl: 0 aspirin, enteric coated (ADULT LOW DOSE ASPIRIN) 81 mg EC tablet Take 1 tablet by mouth once daily. Disp: Rfl: 0 No current facility-administered medications for this visit. ALLERGIES No Known Allergies REVIEW OF SYSTEMS ? Constitutional: Negative for fever, chills, and weight loss Eyes: Negative for vision changes and double vision ENT: Negative for ear pain, nasal discharge, and sore throat Heart: Negative for chest pain Lungs: Negative for shortness of breath and cough GI: See above Musculoskeletal: Negative for joint pain and swelling Neuro: Negative for numbness and tingling Skin: Negative for rashes, lesions, and jaundice Hematologic/Lymphatic: Negative for unusual bruising, bleeding, and swelling Psych: Negative for anxiety and depression PHYSICAL EXAMINATION BP 127/81 Pulse 108 Temp (Src) 97.2 (Oral) Ht 6' 1ANDquot; (1.85m) Wt 221 lb 9.6 oz (100.5kg) SpO2 97% BMI 29.24 kg/(m2). General appearance: Appears well, alert, in no acute distress, well nourished. Skin: Skin color and temperature normal. No obvious rashes or lesions noted on exposed skin. Head: Normocephalic, atraumatic. No masses or lesions noted. Eyes: Anicteric sclera. Pupils are equally round. Ears: External ears normal Nose/Sinuses: Nares normal, no drainage Oropharynx: Lips normal, oropharynx moist. Lungs: Normal effort Abdomen: Soft, mild distention. Mild left sided abdominal tenderness Extremities: No deformities or pitting pedal edema noted. Psych: Pleasant affect, cooperative, A+O x3. Assessment IMPRESSION Faith Ghosh is a 57 year old male who presents today for follow up of constipation. He is currently taking Linzess 290 mcg daily and Amitiza 24 mg BID and Miralax/Metamucil as needed. He describes 10 days of no BM, followed by a hard BM, and then 3-4 days of diarrhea. He underwent pelvic floor PT for 4 weeks and also discussed surgical options with [facility]. Discussed with patient trying fleets enemas every 2-3 days to prevent a hard stool from forming near the rectum. We also discussed toileting habits and taking a few minutes every day to try to have a BM. Can follow up in 3 months to see if Fleets is helping. PLAN -Continue current medications -Fleets enema every 2-3 days as needed Plan is to follow up in three months. Velma Null CNP June 30, 2017 Velma Null CNP, COIN WRAPPING MACHINE OPERATOR 06/30/2017 1:21 PM Signed Fleets enema every 2-3 days Referring Provider: KAY UMANZOR [[id number]] Allergies As of Date: 06/30/2017 (No Known Allergies) Date Reviewed: 06/30/2017 Reviewed by: Xin Bell LPN - Fully Assessed Reason for Visit: Established Patient [175] Cmt: Constipation Primary Visit Diagnosis:Constipation, unspecified constipation type [K59.00] Prescriptions as of 06/30/2017 Sig: LINACLOTIDE 290 MCG CAPSULE Take by mouth once daily. PANTOPRAZOLE 40 MG TABLET,DEL* Take 40 mg by mouth once frederic* LUBIPROSTONE 24 MCG CAPSULE Take 1 capsule by mouth twice* B-12 DOTS ORAL Take by mouth. ASCORBIC ACID (VITAMIN C) 100* Take 100 mg by mouth once francois* FISH OIL ORAL Take by mouth once daily. CLOZAPINE 100 MG TABLET Take 100 mg by mouth once francois* HYDROCHLOROTHIAZIDE 50 MG TAB* Take 50 mg by mouth once frederic* BENZTROPINE 1 MG TABLET Take 1 mg by mouth twice frederic* MONTELUKAST 10 MG TABLET TAKE 1 TABLET BY MOUTH DAILY * MAGNESIUM OXIDE 500 MG TABLET Take 500 mg by mouth once francois* METFORMIN 1,000 MG TABLET Take 1,000 mg by mouth daily * POLYETHYLENE GLYCOL 3350 17 G* Take 17 g by mouth once daily. Patient taking differently: Take 17 g by mouth twice frederic* JANUMET XR 50 MG-1,000 MG TAB* TAKE 1 TABLET BY MOUTH TWICE * LOVASTATIN 20 MG TABLET Take 1 tablet by mouth daily * ATENOLOL 25 MG TABLET Take 1 tablet by mouth twice * Patient taking differently: Take 25 mg by mouth once frederic* OMEGA-3 ACID ETHYL ESTERS 1 G* Take 2 capsules by mouth twic* BLOOD-GLUCOSE METER KIT 1 Each as needed. One Touch M* BLOOD SUGAR DIAGNOSTIC STRIPS Test blood sugar(s) 2 times d* LANCETS 28 GAUGE Test once daily. Dx: E11.9 -* LISINOPRIL 2.5 MG TABLET Take 1 tablet by mouth once d* PERPHENAZINE 8 MG TABLET Take 1 tablet by mouth four t* LORAZEPAM 2 MG TABLET Take 1 tablet by mouth twice * HYDROXYZINE PAMOATE 50 MG CAP* Take 1 capsule by mouth three* GTMNAZPT-JTD-LP 0.4 MG-CALCIU* Take 1 tablet by mouth once d* ASPIRIN 81 MG TABLET,DELAYED * Take 1 tablet by mouth once d* Problem List As Of Date 06/30/2017 Noted Resolved Diabetes (HCC) [E11.9] INVALID FOR* More... Hypertension [I10] INVALID FOR* More... Hyperlipidemia [E78.5] INVALID FOR* More... Paranoid schizophrenia (HCC) [F20.0] INVALID FOR* More... COPD (chronic obstructive pulmonary disease) (H*INVALID FOR* More... Blood per rectum [K62.5] INVALID FOR* Constipation [K59.00] INVALID FOR* Outlet dysfunction constipation [K59.02] INVALID FOR* Pelvic floor dysfunction [M62.89] INVALID FOR* Other instructions from your clinician: Fleets enema every 2-3 days Encounter Status:Closed by VELMA NULL on 06/30/17 PROGRESS Observed: 06/24/2017 Status: COMPLETED Source: [place] 4:20 PM [facility] REPOSITORY HNO ID: [id number] Author: Anne Fowler Service: (none) Author Type: Physician Type: Progress Notes Filed: 06/24/2017 5:43 PM Note Text: Pt returns for follow up of constipation Seen in the presence of his mother at his request Last seen 03/04/2017: Referral placed for pelvic floor physical therapy with biofeedback He has completed this. Per review of notes, no further benefit is thought to be derived from additional treatments. His symptoms are essentially unchanged We reviewed options. He will follow up with GI for further medical management of his constipation Operative management would likely require fecal diversion Anne Fowler MD CNOV Observed: 06/24/2017 Status: COMPLETED Source: [place] 4:20 PM [facility] REPOSITORY Office Visit (IRMA) FAITH GHOSH ([id number]) 1960 M Date Time Provider Department 06/24/17 4:20 PM ANNE FOWLER During your visit today, we recorded the following information about you: Anne Fowler MD 06/24/2017 5:43 PM Signed Pt returns for follow up of constipation Seen in the presence of his mother at his request Last seen 03/04/2017: Referral placed for pelvic floor physical therapy with biofeedback He has completed this. Per review of notes, no further benefit is thought to be derived from additional treatments. His symptoms are essentially unchanged We reviewed options. He will follow up with GI for further medical management of his constipation Operative management would likely require fecal diversion Anne Fowler MD Referring Provider: SELF [[id number]] Allergies As of Date: 06/24/2017 (No Known Allergies) Date Reviewed: 06/24/2017 Reviewed by: Anne Fowler - Fully Assessed Reason for Visit: Established Patient [175] Primary Visit Diagnosis:Outlet dysfunction constipation [K59.02] Prescriptions as of 06/24/2017 Sig: LINACLOTIDE 290 MCG CAPSULE Take by mouth once daily. PANTOPRAZOLE 40 MG TABLET,DEL* Take 40 mg by mouth once frederic* LUBIPROSTONE 24 MCG CAPSULE Take 1 capsule by mouth twice* B-12 DOTS ORAL Take by mouth. ASCORBIC ACID (VITAMIN C) 100* Take 100 mg by mouth once francois* FISH OIL ORAL Take by mouth once daily. CLOZAPINE 100 MG TABLET Take 100 mg by mouth once francois* HYDROCHLOROTHIAZIDE 50 MG TAB* Take 50 mg by mouth once frederic* BENZTROPINE 1 MG TABLET Take 1 mg by mouth twice frdeeric* MONTELUKAST 10 MG TABLET TAKE 1 TABLET BY MOUTH DAILY * MAGNESIUM OXIDE 500 MG TABLET Take 500 mg by mouth once francois* METFORMIN 1,000 MG TABLET Take 1,000 mg by mouth daily * POLYETHYLENE GLYCOL 3350 17 G* Take 17 g by mouth once daily. Patient taking differently: Take 17 g by mouth twice frederic* JANUMET XR 50 MG-1,000 MG TAB* TAKE 1 TABLET BY MOUTH TWICE * LOVASTATIN 20 MG TABLET Take 1 tablet by mouth daily * ATENOLOL 25 MG TABLET Take 1 tablet by mouth twice * Patient taking differently: Take 25 mg by mouth once frederic* OMEGA-3 ACID ETHYL ESTERS 1 G* Take 2 capsules by mouth twic* BLOOD-GLUCOSE METER KIT 1 Each as needed. One Touch M* BLOOD SUGAR DIAGNOSTIC STRIPS Test blood sugar(s) 2 times d* LANCETS 28 GAUGE Test once daily. Dx: E11.9 -* LISINOPRIL 2.5 MG TABLET Take 1 tablet by mouth once d* PERPHENAZINE 8 MG TABLET Take 1 tablet by mouth four t* LORAZEPAM 2 MG TABLET Take 1 tablet by mouth twice * HYDROXYZINE PAMOATE 50 MG CAP* Take 1 capsule by mouth three* ASPIRIN 81 MG TABLET,DELAYED * Take 1 tablet by mouth once d* UZUEBWAE-RMD-GN 0.4 MG-CALCIU* Take 1 tablet by mouth once d* Medication notes this encounter POLYETHYLENE GLYCOL 3350 17 GRAM/DOSE ORAL POWDER >> Bharathi Ross RN, RN 06/24/2017 4:10 PM >> BHARATHI ROSS Jun 24, 2017 4:10 PM pt taking once per day >> Bharathi Ross RN, RN 06/24/2017 4:10 PM >> BHARATHI ROSS Jun 24, 2017 4:10 PM >> Bharathi Ross RN, RN 06/24/2017 4:10 PM >> BHARATHI ROSS Jun 24, 2017 4:10 PM pt taking once per day PERPHENAZINE 8 MG TABLET >> Bharathi Ross, RN, RN 06/24/2017 4:04 PM >> BHARATHI ROSS Jun 24, 2017 4:04 PM 3x daily Problem List As Of Date 06/24/2017 Noted Resolved Diabetes (HCC) [E11.9] INVALID FOR* More... Hypertension [I10] INVALID FOR* More... Hyperlipidemia [E78.5] INVALID FOR* More... Paranoid schizophrenia (HCC) [F20.0] INVALID FOR* More... COPD (chronic obstructive pulmonary disease) (H*INVALID FOR* More... Blood per rectum [K62.5] INVALID FOR* Constipation [K59.00] INVALID FOR* Outlet dysfunction constipation [K59.02] INVALID FOR* Pelvic floor dysfunction [M62.89] INVALID FOR* Encounter Status:Closed by ANNE FOWLER MD on 06/24/17 PROGRESS Observed: 06/04/2017 Status: COMPLETED Source: [place] 1:59 PM [facility] REPOSITORY HNO ID: [id number] Author: Nora Mcguire (Pt) Pradip Service: (none) Author Type: Physical Therapist Type: Progress Notes Filed: 06/04/2017 2:41 PM Note Text: Episode Visit Count: 4 Therapist That Will Oversee The Plan Of Care: Nora South PT Start of Care Date: 04/06/17 Onset Date: 09/24/16 Plan of Care Certification Date: 04/06/17 REHABILITATION AND SPORTS THERAPY PHYSICAL THERAPY DISCONTINUANCE OF CARE PLAN OF CARE UPDATE: Assessment: Faith Ghosh is discontinued from Physical Therapy services due to maximal benefit.. Patient was seen for 4 visits from Start of Care Date: 04/06/17 to 06/04/2017 and treatment included: Therapeutic exercise, Neuromuscular re-education, Self-residential management and Patient/Family/Caregiver Education. Goals for Episode of Care: created on 04/06/17 through 07/05/17 Updated 06/04/17 Incontinence: Patient reports increased water intake to 6 glasses / day - MET Patient reports increased fiber up to 25-25 grams per day to regulate bowels - MET Patient demonstrates ability to perform diaphragmatic breathing / relaxation - MET Patient demonstrates ability to correctly isolate pelvic floor muscles - MET Patient reports increased ability to fully empty bladder / bowels - not met Patient displays proper technique for bearing down without use of accessory muscles - MET Patient displays improved muscle dynamics of pelvic floor including ability to lengthen muscles - MET Patient reports improvements in bowel urgency to avoid incontinent episodes - ongoing Pelvic Pain: ODS to decrease by 5 points - ongoing G CODE REPORTING: Based on clinical assessment and the score on the ODS Assessment Tool, the G code and corresponding severity modifiers are documented below. Discharge: 06/04/2017 Goal Status: Other PT/OT Primary: G8991 CJ 20-39% impaired Discharge: Other PT/OT Primary: G8992 CK 40-59% impaired SUBJECTIVE: Continued cycle of 10-14 days of not passing stool, then hard stool followed by diarrhea. Has not seen much improvement in this despite therapy.. Pain Score: 5/10 Pain Location: (abdominal bloating/pain) OBJECTIVE MEASURES WITH LEVEL OF FUNCTION: Pelvic Floor Water (8 oz glasses): 6 Coffee (8 oz glasses): 1 Difficulty evacuating / Excessive Straining: Yes Incomplete emptying: Sometimes Bowel Movement Frequency: see subjective Bloating / abdominal pain: Yes Pelvic Floor Muscle Assessment Ability to Lengthen pelvic floor: Yes Pelvic Floor Muscle EMG: Surface (seated) Rest tone (uV): 0.7 Flick strength (uV): 15.8 TREATMENT: Neuromuscular Re-Education: 1: PFM dynamics with Visual feedback on sEMG 2: DB with lengthening for toilet 3: Toileting posture 4: taught manual stimulation rectally to facilitate bowel movement with glove and lubricant 5: used sEMG on pelvic floor muscles to visually aid in proper recruitment and relaxation of pelvic floor muscles and muscle retraining Skilled Intervention: Visual cues with computerized output and verbal cues for contract/relax Billing: [facility]: Neuromuscular Re-education (34972): 1:1 time:40 minutes (3 units: 38-52 mins) Total time: 45 minutes Nora South PT CNTHERAPY Observed: 06/04/2017 Status: COMPLETED Source: [place] 11:15 AM [facility] REPOSITORY OT/PT/Speech Visit (SPTBR) ANDRIYFAITH LLAMAS J ([id number]) 1960 M Date Time Provider Department 06/04/17 11:15 AM [facility] (PT) SPTBR Date Time Provider Department Center 06/04/2017 11:15 AM [id number]-[facility]*SPTBR [facility] [place] Reason for Visit: Physical Therapy [503] PT Discharge [752] Primary Visit Diagnosis:Pelvic floor dysfunction [M62.89] Other Visit Diagnosis:Outlet dysfunction constipation [K59.02] Allergies As of Date: 06/04/2017 (No Known Allergies) Date Reviewed: 03/04/2017 Reviewed by: Anne Fowler - Fully Assessed Prescriptions as of 06/04/2017 Sig: LUBIPROSTONE 24 MCG CAPSULE Take 1 capsule by mouth twice* B-12 DOTS ORAL Take by mouth. ASCORBIC ACID (VITAMIN C) 100* Take 100 mg by mouth once francois* FISH OIL ORAL Take by mouth once daily. CLOZAPINE 100 MG TABLET Take 100 mg by mouth once francois* HYDROCHLOROTHIAZIDE 50 MG TAB* Take 50 mg by mouth once frederic* BENZTROPINE 1 MG TABLET Take 1 mg by mouth twice frederic* MONTELUKAST 10 MG TABLET TAKE 1 TABLET BY MOUTH DAILY * MAGNESIUM OXIDE 500 MG TABLET Take 500 mg by mouth once francois* METFORMIN 1,000 MG TABLET Take 1,000 mg by mouth daily * POLYETHYLENE GLYCOL 3350 17 G* Take 17 g by mouth once daily. Patient taking differently: Take 17 g by mouth twice frederic* JANUMET XR 50 MG-1,000 MG TAB* TAKE 1 TABLET BY MOUTH TWICE * LOVASTATIN 20 MG TABLET Take 1 tablet by mouth daily * ATENOLOL 25 MG TABLET Take 1 tablet by mouth twice * OMEGA-3 ACID ETHYL ESTERS 1 G* Take 2 capsules by mouth twic* BLOOD-GLUCOSE METER KIT 1 Each as needed. One Touch M* BLOOD SUGAR DIAGNOSTIC STRIPS Test blood sugar(s) 2 times d* LANCETS 28 GAUGE Test once daily. Dx: E11.9 -* LISINOPRIL 2.5 MG TABLET Take 1 tablet by mouth once d* PERPHENAZINE 8 MG TABLET Take 1 tablet by mouth four t* LORAZEPAM 2 MG TABLET Take 1 tablet by mouth twice * HYDROXYZINE PAMOATE 50 MG CAP* Take 1 capsule by mouth three* VMPJOQSN-HAA-LI 0.4 MG-CALCIU* Take 1 tablet by mouth once d* ASPIRIN 81 MG TABLET,DELAYED * Take 1 tablet by mouth once d* Progress Notes: Nora South, PT 06/04/2017 2:41 PM Signed Episode Visit Count: 4 Therapist That Will Oversee The Plan Of Care: Nora South PT Start of Care Date: 04/06/17 Onset Date: 09/24/16 Plan of Care Certification Date: 04/06/17 REHABILITATION AND SPORTS THERAPY PHYSICAL THERAPY DISCONTINUANCE OF CARE PLAN OF CARE UPDATE: Assessment: Faith Ghosh is discontinued from Physical Therapy services due to maximal benefit.. Patient was seen for 4 visits from Start of Care Date: 04/06/17 to 06/04/2017 and treatment included: Therapeutic exercise, Neuromuscular re-education, Self-residential management and Patient/Family/Caregiver Education. Goals for Episode of Care: created on 04/06/17 through 07/05/17 Updated 06/04/17 Incontinence: Patient reports increased water intake to 6 glasses / day - MET Patient reports increased fiber up to 25-25 grams per day to regulate bowels - MET Patient demonstrates ability to perform diaphragmatic breathing / relaxation - MET Patient demonstrates ability to correctly isolate pelvic floor muscles - MET Patient reports increased ability to fully empty bladder / bowels - not met Patient displays proper technique for bearing down without use of accessory muscles - MET Patient displays improved muscle dynamics of pelvic floor including ability to lengthen muscles - MET Patient reports improvements in bowel urgency to avoid incontinent episodes - ongoing Pelvic Pain: ODS to decrease by 5 points - ongoing G CODE REPORTING: Based on clinical assessment and the score on the ODS Assessment Tool, the G code and corresponding severity modifiers are documented below. Discharge: 06/04/2017 Goal Status: Other PT/OT Primary: G8991 CJ 20-39% impaired Discharge: Other PT/OT Primary: G8992 CK 40-59% impaired SUBJECTIVE: Continued cycle of 10-14 days of not passing stool, then hard stool followed by diarrhea. Has not seen much improvement in this despite therapy.. Pain Score: 5/10 Pain Location: (abdominal bloating/pain) OBJECTIVE MEASURES WITH LEVEL OF FUNCTION: Pelvic Floor Water (8 oz glasses): 6 Coffee (8 oz glasses): 1 Difficulty evacuating / Excessive Straining: Yes Incomplete emptying: Sometimes Bowel Movement Frequency: see subjective Bloating / abdominal pain: Yes Pelvic Floor Muscle Assessment Ability to Lengthen pelvic floor: Yes Pelvic Floor Muscle EMG: Surface (seated) Rest tone (uV): 0.7 Flick strength (uV): 15.8 TREATMENT: Neuromuscular Re-Education: 1: PFM dynamics with Visual feedback on sEMG 2: DB with lengthening for toilet 3: Toileting posture 4: taught manual stimulation rectally to facilitate bowel movement with glove and lubricant 5: used sEMG on pelvic floor muscles to visually aid in proper recruitment and relaxation of pelvic floor muscles and muscle retraining Skilled Intervention: Visual cues with computerized output and verbal cues for contract/relax Billing: [facility]: Neuromuscular Re-education (00006): 1:1 time:40 minutes (3 units: 38-52 mins) Total time: 45 minutes Nora South, PT CBC W/DIFF, AUTOMATED Collected: 06/03/2017 Status: F Source: [place] 8:26 AM [facility] REPOSITORY TYPE CODE TESTS RESULT OUT OF RANGE REFERENCE UNITS LAB L100.1000 4.4-11.0 K/mm3 Normal WBC 5.5 LAB L100.1200 4.6-6.2 M/mm3 Normal RBC 5.70 LAB L100.1300 13.0-16.5 g/dl Normal HGB 16.1 LAB L100.1400 40-54 % Normal HCT 48.4 LAB L100.1500 80-94 fL Normal MCV 84.9 LAB L100.1600 27.0-32.0 pg Normal MCH 28.2 LAB L100.1700 32-36 g/gl Normal MCHC 33.3 LAB L100.1810 11.6-14.6 % Normal RDW CV 14.2 LAB L100.1820 35.1-43.9 fl High RDW SD 44.4 LAB L100.1900 150-450 K/mm3 Normal PLT 188 LAB L100.2000 6.2-12.0 fl Normal MPV 11.3 LAB L100.2100 47-70 % Normal NEUT% 55.6 LAB L100.2200 19-41 % Normal LY% 32.2 LAB L100.2300 0-10 % Normal MONO% 8.2 LAB L100.2400 0-5 % Normal EO% 3.3 LAB L100.2500 0-1 % Normal BASO% 0.5 LAB L100.2550 0.0-0.9 % Normal IM GRAN % 0.200 Result Comment: IG% - Immature Granulocytes (promyelocytes, myelocytes and metamyelocytes) > 1% indicates that a LEFT SHIFT is Present. LAB L100.2620 2.0-7.7 X10 3/uL Normal Absolute Neut 3.1 LAB L100.2720 0.83-4.51 X10 3/ul Normal Absolute Lymph 1.78 Performed By: #### L100.0100 #### [facility] [address] [place] [address] [address]dee. [place], [place], [address] PROGRESS Observed: 05/21/2017 Status: COMPLETED Source: [place] 11:47 AM [facility] REPOSITORY O ID: [id number] Author: Nora Mcguire (Pt) Pradip Service: (none) Author Type: Physical Therapist Type: Progress Notes Filed: 05/21/2017 12:13 PM Note Text: Episode Visit Count: 3 Therapist That Will Oversee The Plan Of Care: Nora South PT Start of Care Date: 04/06/17 Onset Date: 09/24/16 Plan of Care Certification Date: 04/06/17 Patient Identified by Name and Date of : Yes REHABILITATION AND SPORTS THERAPY PHYSICAL THERAPY PROGRESS REPORT PLAN OF CARE UPDATE: Assessment: Faith Ghosh exhibits difficulty with continued constipation, has not been able to move bowels in 2 weeks despite daily laxatives, increased water intake and toileting habits/posture learned in therapy . He continues to be limited with compromised bowel function. He is progressing slower than expected towards his therapy goals as demonstrated by: documented subjective information on progress. He will benefit from continued skilled therapy requiring pelvic floor retraining and management of symptoms in order to improve bowel function. Functional gains: Increased independence with HEP Increased ROM Decreased intensity of pain ? Goals for Episode of Care: created on 04/06/17 through 07/05/17 Updated 05/21/17 Incontinence: Patient reports increased water intake to 6 glasses / day - MET Patient reports increased fiber up to 25-25 grams per day to regulate bowels - MET Patient demonstrates ability to perform diaphragmatic breathing / relaxation - partially met Patient demonstrates ability to correctly isolate pelvic floor muscles - MET Patient reports increased ability to fully empty bladder / bowels - ongoing Patient displays proper technique for bearing down without use of accessory muscles - ongoing Patient displays improved muscle dynamics of pelvic floor including ability to lengthen muscles - MET Patient reports improvements in bowel urgency to avoid incontinent episodes - ongoing Pelvic Pain: ODS to decrease by 5 points - ongoing G CODE REPORTING Based on clinical assessment and the score on the ODS Assessment Tool, the G code and corresponding severity modifiers are documented below. Progress Note visit 3 Current Status: Other PT/OT Primary: G8990 ?CK 40-59% impaired Goal Status: Other PT/OT Primary: G8991 ?CJ 20-39% impaired ? Planned Interventions, Frequency, and Duration: 1 visit, 2 weeks Patient to be seen for PLAN FOR NEXT VISIT: Patient to follow up with GI or CORS but will return for one more visit of PT SUBJECTIVE: Patient reports that he has not had a bowel movement in almost 2 weeks, feeling very uncomfortable. Has tried Miralax and Metamucil, drinking 6 glasses of water per day but still not working. Continues to try every day to have a bowel movement without success. . Pain Score: 5/10 Post Treatment Pain Score: 5/10 OBJECTIVE MEASURES WITH LEVEL OF FUNCTION: Pelvic Floor Water (8 oz glasses): 6 Coffee (8 oz glasses): 2 Difficulty evacuating / Excessive Straining: Yes Bowel Movement Frequency: see subjective Bowel Movement Consistency: (hard stool followed by diarrhea) Bloating / abdominal pain: Yes Pelvic Floor Muscle Assessment Pelvic Floor Muscle Assessment: Muscle Dynamics Recruitment of pelvic floor muscles: Uncoordinated Ability to Lengthen pelvic floor: Yes (passively) Manual Assessment Tested Rectally in : Sidelying Puborectalis: (normal tone) TREATMENT: Manual Therapy: 1: Thieles massage pelvic floor 2: PFM stretching R and L Skilled Intervention: Manual skills to improve joint mobility, ROM, and decrease pain. Utilized anatomy knowledge of the therapist, and assessment of patient's response to intervention. Neuromuscular Re-Education: 1: PFM dynamics with tactile feeback rectally 2: DB with lengthening for toilet 3: Toileting posture 4: taught manual stimulation rectally to facilitate bowel movement with glove and lubricant Skilled Intervention: Education in proprioceptive/kinesthetic awareness during Bowel movements/toileting position. Education and demonstration for posture and positioning for tone management. Billing: [facility]: Manual Therapy ([id number]): 1:1 time: 15 minutes (1 unit: 8-22 mins) Neuromuscular Re-education (59104): 1:1 time:30 minutes (2 units: 23-37 mins) Total time: 45 minutes Nora South PT CNTHERAPY Observed: 05/21/2017 Status: COMPLETED Source: [place] 10:30 AM [facility] REPOS[facility] OT/PT/Speech Visit (SPTBR) FAITH GHOSH ([id number]) 1960 M Date Time Provider Department 05/21/17 10:30 AM [facility] (PT) SPTBR Date Time Provider Department Center 05/21/2017 10:30 AM [id number]-[facility]*SPTBR [facility] [place] Reason for Visit: PT Progress Note [1596] Primary Visit Diagnosis:Pelvic floor dysfunction [M62.89] Other Visit Diagnosis:Outlet dysfunction constipation [K59.02] Allergies As of Date: 05/21/2017 (No Known Allergies) Date Reviewed: 03/04/2017 Reviewed by: Anne Fowler - Fully Assessed Prescriptions as of 05/21/2017 Sig: LUBIPROSTONE 24 MCG CAPSULE Take 1 capsule by mouth twice* B-12 DOTS ORAL Take by mouth. ASCORBIC ACID (VITAMIN C) 100* Take 100 mg by mouth once francois* FISH OIL ORAL Take by mouth once daily. CLOZAPINE 100 MG TABLET Take 100 mg by mouth once francois* HYDROCHLOROTHIAZIDE 50 MG TAB* Take 50 mg by mouth once frederic* BENZTROPINE 1 MG TABLET Take 1 mg by mouth twice frederic* MONTELUKAST 10 MG TABLET TAKE 1 TABLET BY MOUTH DAILY * MAGNESIUM OXIDE 500 MG TABLET Take 500 mg by mouth once francois* METFORMIN 1,000 MG TABLET Take 1,000 mg by mouth daily * POLYETHYLENE GLYCOL 3350 17 G* Take 17 g by mouth once daily. Patient taking differently: Take 17 g by mouth twice frederic* JANUMET XR 50 MG-1,000 MG TAB* TAKE 1 TABLET BY MOUTH TWICE * LOVASTATIN 20 MG TABLET Take 1 tablet by mouth daily * ATENOLOL 25 MG TABLET Take 1 tablet by mouth twice * OMEGA-3 ACID ETHYL ESTERS 1 G* Take 2 capsules by mouth twic* BLOOD-GLUCOSE METER KIT 1 Each as needed. One Touch M* BLOOD SUGAR DIAGNOSTIC STRIPS Test blood sugar(s) 2 times d* LANCETS 28 GAUGE Test once daily. Dx: E11.9 -* LISINOPRIL 2.5 MG TABLET Take 1 tablet by mouth once d* PERPHENAZINE 8 MG TABLET Take 1 tablet by mouth four t* LORAZEPAM 2 MG TABLET Take 1 tablet by mouth twice * HYDROXYZINE PAMOATE 50 MG CAP* Take 1 capsule by mouth three* EEILVAMB-QPA-NS 0.4 MG-CALCIU* Take 1 tablet by mouth once d* ASPIRIN 81 MG TABLET,DELAYED * Take 1 tablet by mouth once d* Progress Notes: Nora South PT 05/21/2017 12:13 PM Signed Episode Visit Count: 3 Therapist That Will Oversee The Plan Of Care: Nora South PT Start of Care Date: 04/06/17 Onset Date: 09/24/16 Plan of Care Certification Date: 04/06/17 Patient Identified by Name and Date of : Yes REHABILITATION AND SPORTS THERAPY PHYSICAL THERAPY PROGRESS REPORT PLAN OF CARE UPDATE: Assessment: Faith Ghosh exhibits difficulty with continued constipation, has not been able to move bowels in 2 weeks despite daily laxatives, increased water intake and toileting habits/posture learned in therapy . He continues to be limited with compromised bowel function. He is progressing slower than expected towards his therapy goals as demonstrated by: documented subjective information on progress. He will benefit from continued skilled therapy requiring pelvic floor retraining and management of symptoms in order to improve bowel function. Functional gains: Increased independence with HEP Increased ROM Decreased intensity of pain ? Goals for Episode of Care: created on 04/06/17 through 07/05/17 Updated 05/21/17 Incontinence: Patient reports increased water intake to 6 glasses / day - MET Patient reports increased fiber up to 25-25 grams per day to regulate bowels - MET Patient demonstrates ability to perform diaphragmatic breathing / relaxation - partially met Patient demonstrates ability to correctly isolate pelvic floor muscles - MET Patient reports increased ability to fully empty bladder / bowels - ongoing Patient displays proper technique for bearing down without use of accessory muscles - ongoing Patient displays improved muscle dynamics of pelvic floor including ability to lengthen muscles - MET Patient reports improvements in bowel urgency to avoid incontinent episodes - ongoing Pelvic Pain: ODS to decrease by 5 points - ongoing G CODE REPORTING Based on clinical assessment and the score on the ODS Assessment Tool, the G code and corresponding severity modifiers are documented below. Progress Note visit 3 Current Status: Other PT/OT Primary: G8990 ?CK 40-59% impaired Goal Status: Other PT/OT Primary: G8991 ?CJ 20-39% impaired ? Planned Interventions, Frequency, and Duration: 1 visit, 2 weeks Patient to be seen for PLAN FOR NEXT VISIT: Patient to follow up with GI or CORS but will return for one more visit of PT SUBJECTIVE: Patient reports that he has not had a bowel movement in almost 2 weeks, feeling very uncomfortable. Has tried Miralax and Metamucil, drinking 6 glasses of water per day but still not working. Continues to try every day to have a bowel movement without success. . Pain Score: 5/10 Post Treatment Pain Score: 5/10 OBJECTIVE MEASURES WITH LEVEL OF FUNCTION: Pelvic Floor Water (8 oz glasses): 6 Coffee (8 oz glasses): 2 Difficulty evacuating / Excessive Straining: Yes Bowel Movement Frequency: see subjective Bowel Movement Consistency: (hard stool followed by diarrhea) Bloating / abdominal pain: Yes Pelvic Floor Muscle Assessment Pelvic Floor Muscle Assessment: Muscle Dynamics Recruitment of pelvic floor muscles: Uncoordinated Ability to Lengthen pelvic floor: Yes (passively) Manual Assessment Tested Rectally in : Sidelying Puborectalis: (normal tone) TREATMENT: Manual Therapy: 1: Thieles massage pelvic floor 2: PFM stretching R and L Skilled Intervention: Manual skills to improve joint mobility, ROM, and decrease pain. Utilized anatomy knowledge of the therapist, and assessment of patient's response to intervention. Neuromuscular Re-Education: 1: PFM dynamics with tactile feeback rectally 2: DB with lengthening for toilet 3: Toileting posture 4: taught manual stimulation rectally to facilitate bowel movement with glove and lubricant Skilled Intervention: Education in proprioceptive/kinesthetic awareness during Bowel movements/toileting position. Education and demonstration for posture and positioning for tone management. Billing: [facility]: Manual Therapy ([id number]): 1:1 time: 15 minutes (1 unit: 8-22 mins) Neuromuscular Re-education (73883): 1:1 time:30 minutes (2 units: 23-37 mins) Total time: 45 minutes Nora South PT Follow-up and Disposition History Recorded PROGRESS Observed: 05/07/2017 Status: COMPLETED Source: [place] 11:59 AM [facility] RE[facility] HNO ID: [id number] Author: Nora Mcguire (Pt) Pradip Service: (none) Author Type: Physical Therapist Type: Progress Notes Filed: 05/07/2017 12:01 PM Note Text: Episode Visit Count: 2 Therapist That Will Oversee The Plan Of Care: Nora South PT Start of Care Date: 04/06/17 Onset Date: 09/24/16 Plan of Care Certification Date: 04/06/17 Patient Identified by Name and Date of : Yes REHABILITATION AND SPORTS THERAPY PHYSICAL THERAPY TREATMENT NOTE ASSESSMENT: Faith Ghosh demonstrated improvements in bowel frequency and ability to feel pelvic floor relaxation with use of EMG today. The patient will continue to benefit from continued skilled physical therapy for neuro re-ed of pelvic floor muscles and continued education on bowel habits. PLAN FOR NEXT VISIT: Continue biofeedback, check internally for lengthening SUBJECTIVE: Reports that he was traveling and got pretty constipated. He continues to have hard stools followed by diarrhea. Last time he had bowel movement was yesterday. Did get a stool and that has helped with passing bowel movements. Previous to travel, going about once or twice per day for about 3-4 days. Pain Score: 0/10 Frequency: Intermittent Post Treatment Pain Score: 0/10 OBJECTIVE MEASURES WITH LEVEL OF FUNCTION: Pelvic Floor Difficulty evacuating / Excessive Straining: Yes Bowel Movement Frequency: see subjective Pelvic Floor Muscle Assessment Rest tone (uV): 0.5 Flick strength (uV): 23.7 TREATMENT: Neuromuscular Re-Education: 1: PFM dynamics with tactile feeback rectally 2: DB with lengthening for toilet 3: Toileting posture 4: sEMG on PFM with above listed items to aid in visual connection with pelvic floor, dynamics Skilled Intervention: Education in proprioceptive/kinesthetic awareness during Bowel movements. Visual facilitation and inhibition of pfm Correct performance of home program was facilitated with verbal and visual cueing. Patient education as noted. Billing: [facility]: Neuromuscular Re-education ([id number]): 1:1 time:45 minutes (3 units: 38-52 mins) Total time: 45 minutes Nora South PT CNTHERAPY Observed: 05/07/2017 Status: COMPLETED Source: [place] 10:30 AM [facility] OT/PT/Speech Visit (SPTBR) FAITH GHOSH ([id number]) 1960 M Date Time Provider Department 05/07/17 10:30 AM [facility] (PT) SPTBR Date Time Provider Department Center 05/07/2017 10:30 AM [id number]-[facility]*SPTBR [facility] [place] Reason for Visit: Physical Therapy [503] Primary Visit Diagnosis:Pelvic floor dysfunction [M62.89] Other Visit Diagnosis:Outlet dysfunction constipation [K59.02] Allergies As of Date: 05/07/2017 (No Known Allergies) Date Reviewed: 03/04/2017 Reviewed by: Anne Fowler - Fully Assessed Prescriptions as of 05/07/2017 Sig: LUBIPROSTONE 24 MCG CAPSULE Take 1 capsule by mouth twice* B-12 DOTS ORAL Take by mouth. ASCORBIC ACID (VITAMIN C) 100* Take 100 mg by mouth once francois* FISH OIL ORAL Take by mouth once daily. CLOZAPINE 100 MG TABLET Take 100 mg by mouth once francois* HYDROCHLOROTHIAZIDE 50 MG TAB* Take 50 mg by mouth once frederic* BENZTROPINE 1 MG TABLET Take 1 mg by mouth twice frederic* MONTELUKAST 10 MG TABLET TAKE 1 TABLET BY MOUTH DAILY * MAGNESIUM OXIDE 500 MG TABLET Take 500 mg by mouth once francois* METFORMIN 1,000 MG TABLET Take 1,000 mg by mouth daily * POLYETHYLENE GLYCOL 3350 17 G* Take 17 g by mouth once daily. Patient taking differently: Take 17 g by mouth twice frederic* JANUMET XR 50 MG-1,000 MG TAB* TAKE 1 TABLET BY MOUTH TWICE * LOVASTATIN 20 MG TABLET Take 1 tablet by mouth daily * ATENOLOL 25 MG TABLET Take 1 tablet by mouth twice * OMEGA-3 ACID ETHYL ESTERS 1 G* Take 2 capsules by mouth twic* BLOOD-GLUCOSE METER KIT 1 Each as needed. One Touch M* BLOOD SUGAR DIAGNOSTIC STRIPS Test blood sugar(s) 2 times d* LANCETS 28 GAUGE Test once daily. Dx: E11.9 -* LISINOPRIL 2.5 MG TABLET Take 1 tablet by mouth once d* PERPHENAZINE 8 MG TABLET Take 1 tablet by mouth four t* LORAZEPAM 2 MG TABLET Take 1 tablet by mouth twice * HYDROXYZINE PAMOATE 50 MG CAP* Take 1 capsule by mouth three* MSEUILXD-DRW-UC 0.4 MG-CALCIU* Take 1 tablet by mouth once d* ASPIRIN 81 MG TABLET,DELAYED * Take 1 tablet by mouth once d* Progress Notes: Nora South, PT 05/07/2017 12:01 PM Signed Episode Visit Count: 2 Therapist That Will Oversee The Plan Of Care: Nora South, TOMMY Start of Care Date: 04/06/17 Onset Date: 09/24/16 Plan of Care Certification Date: 04/06/17 Patient Identified by Name and Date of : Yes REHABILITATION AND SPORTS THERAPY PHYSICAL THERAPY TREATMENT NOTE ASSESSMENT: Faith Ghosh demonstrated improvements in bowel frequency and ability to feel pelvic floor relaxation with use of EMG today. The patient will continue to benefit from continued skilled physical therapy for neuro re-ed of pelvic floor muscles and continued education on bowel habits. PLAN FOR NEXT VISIT: Continue biofeedback, check internally for lengthening SUBJECTIVE: Reports that he was traveling and got pretty constipated. He continues to have hard stools followed by diarrhea. Last time he had bowel movement was yesterday. Did get a stool and that has helped with passing bowel movements. Previous to travel, going about once or twice per day for about 3-4 days. Pain Score: 0/10 Frequency: Intermittent Post Treatment Pain Score: 0/10 OBJECTIVE MEASURES WITH LEVEL OF FUNCTION: Pelvic Floor Difficulty evacuating / Excessive Straining: Yes Bowel Movement Frequency: see subjective Pelvic Floor Muscle Assessment Rest tone (uV): 0.5 Flick strength (uV): 23.7 TREATMENT: Neuromuscular Re-Education: 1: PFM dynamics with tactile feeback rectally 2: DB with lengthening for toilet 3: Toileting posture 4: sEMG on PFM with above listed items to aid in visual connection with pelvic floor, dynamics Skilled Intervention: Education in proprioceptive/kinesthetic awareness during Bowel movements. Visual facilitation and inhibition of pfm Correct performance of home program was facilitated with verbal and visual cueing. Patient education as noted. Billing: [facility]: Neuromuscular Re-education (31461): 1:1 time:45 minutes (3 units: 38-52 mins) Total time: 45 minutes Nora South, PT CBC W/DIFF, AUTOMATED Collected: 05/06/2017 Status: F Source: [place] 1:45 PM [facility] REPOSITORY TYPE CODE TESTS RESULT OUT OF RANGE REFERENCE UNITS LAB L100.1000 4.4-11.0 K/mm3 Normal WBC 5.6 LAB L100.1200 4.6-6.2 M/mm3 Normal RBC 5.59 LAB L100.1300 13.0-16.5 g/dl Normal HGB 16.1 LAB L100.1400 40-54 % Normal HCT 46.3 LAB L100.1500 80-94 fL Normal MCV 82.8 LAB L100.1600 27.0-32.0 pg Normal MCH 28.8 LAB L100.1700 32-36 g/gl Normal MCHC 34.8 LAB L100.1810 11.6-14.6 % High RDW CV 14.9 LAB L100.1820 35.1-43.9 fl High RDW SD 45.5 LAB L100.1900 150-450 K/mm3 Normal PLT 195 LAB L100.2000 6.2-12.0 fl Normal MPV 11.2 LAB L100.2100 47-70 % Normal NEUT% 48.8 LAB L100.2200 19-41 % Normal LY% 36.6 LAB L100.2300 0-10 % High MONO% 11.0 LAB L100.2400 0-5 % Normal EO% 2.9 LAB L100.2500 0-1 % Normal BASO% 0.5 LAB L100.2550 0.0-0.9 % Normal IM GRAN % 0.200 Result Comment: IG% - Immature Granulocytes (promyelocytes, myelocytes and metamyelocytes) > 1% indicates that a LEFT SHIFT is Present. LAB L100.2620 2.0-7.7 X10 3/uL Normal Absolute Neut 2.7 LAB L100.2720 0.83-4.51 X10 3/ul Normal Absolute Lymph 2.04 Performed By: #### L100.0100 #### [facility] 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 ASCORBIC ACID (VITAMIN C) 100* Take 100 mg by mouth once francois* FISH OIL ORAL Take by mouth once daily. CLOZAPINE 100 MG TABLET Take 100 mg by mouth once francois* HYDROCHLOROTHIAZIDE 50 MG TAB* Take 50 mg by mouth once frederic* BENZTROPINE 1 MG TABLET Take 1 mg by mouth twice frederic* MONTELUKAST 10 MG TABLET TAKE 1 TABLET BY MOUTH DAILY * MAGNESIUM OXIDE 500 MG TABLET Take 500 mg by mouth once francois* METFORMIN 1,000 MG TABLET Take 1,000 mg by mouth daily * POLYETHYLENE GLYCOL 3350 17 G* Take 17 g by mouth once daily. Patient taking differently: Take 17 g by mouth twice frederic* JANUMET XR 50 MG-1,000 MG TAB* TAKE 1 TABLET BY MOUTH TWICE * LOVASTATIN 20 MG TABLET Take 1 tablet by mouth daily * ATENOLOL 25 MG TABLET Take 1 tablet by mouth twice * OMEGA-3 ACID ETHYL ESTERS 1 G* Take 2 capsules by mouth twic* BLOOD-GLUCOSE METER KIT 1 Each as needed. One Touch M* BLOOD SUGAR DIAGNOSTIC STRIPS Test blood sugar(s) 2 times d* LANCETS 28 GAUGE Test once daily. Dx: E11.9 -* LISINOPRIL 2.5 MG TABLET Take 1 tablet by mouth once d* PERPHENAZINE 8 MG TABLET Take 1 tablet by mouth four t* LORAZEPAM 2 MG TABLET Take 1 tablet by mouth twice * HYDROXYZINE PAMOATE 50 MG CAP* Take 1 capsule by mouth three* MSPKXGEO-AKQ-YC 0.4 MG-CALCIU* Take 1 tablet by mouth once d* ASPIRIN 81 MG TABLET,DELAYED * Take 1 tablet by mouth once d* Problem List As Of Date 05/04/2017 Noted Resolved Diabetes (HCC) [E11.9] INVALID FOR* More... Hypertension [I10] INVALID FOR* More... Hyperlipidemia [E78.5] INVALID FOR* More... Paranoid schizophrenia (HCC) [F20.0] INVALID FOR* More... COPD (chronic obstructive pulmonary disease) (H*INVALID FOR* More... Blood per rectum [K62.5] INVALID FOR* Constipation [K59.00] INVALID FOR* Outlet dysfunction constipation [K59.02] INVALID FOR* Pelvic floor dysfunction [M62.89] INVALID FOR* Prescriptions ordered this encounter Disp Refills Start End LUBIPROSTONE 24 MCG CAPSULE 60 c* 2 05/04/2017 Route: ORAL Sig: Take 1 capsule by mouth twice daily with meals. Medications Discontinued During This Encounter lubiprostone (AMITIZA) 24 mcg capsule 60 c* 2 02/11/2017 05/04/2017 Route: ORAL Sig: Take 1 capsule by mouth twice daily with meals. Disc: Reason for discontinue is not on file. Encounter Status:Closed by VELMA NULL on 05/04/17 ALLERGIES ALLERGIES DATE TYPE / CODE NAME / CODE REACTION SEVERITY SOURCE 11/13/2017 Drug No Known Unknown [facility] Allergy/416 Allergies/H74610 Hospital 939974(SNOM 0388(RXNORM) Repository ED CT) Drug NO KNOWN [facility] Class/76399 ALLERGIES Main [place] 1003(SNOMED Repository CT) ENCOUNTERS ENCOUNTERS ADMIT/DISCHARGE ACCOUNT ADMITTING ENCOUNTER LOCATION SOURCE NUMBER CLASS 03/29/2018 [id number] [facility] ing:MTLAB Repository 03/22/2018/03/22/20 [id number] Ambulatory [address] ing:MTLAB Repository 03/11/2018/03/11/20 [id number] Ambulatory [address] Repository 02/21/2018/02/22/[id number] ing:MTLAB Repository 02/14/2018/02/15/20 [id number] Ambulatory [address] Repository 02/07/2018 [id number] [facility] ing:PT Repository 01/21/2018/01/22/20 [id number] Ambulatory [address] ing:MTLAB Repository 01/14/2018 [id number] [facility] ing:LAB.FUTARTEM Repository E 12/26/2017/12/30/19 [id number] Carlie Gayle Inpatient [address] ing:ZN4Ymhz: Repository [id number]: 1 12/26/2017 [id number] Carlie Gayle Ambulatory BMSBuilding:B Brandon BANKS.[facility] Repository 12/26/2017 [id number] White, Ambulatory BMSBuilding:Trent Taylor MS.[facility] Repository 12/26/2017 [id number] White, Ambulatory BMSBuilding:Trent Taylor MS.[facility] Repository 12/26/2017 [id number] White, Ambulatory BMSBuilding:Trent Taylor MS.[facility] Repository 12/24/[id number] [facility] ing:MTLAB Repository 12/23/2017/12/24/19 [id number] Ambulatory [address] Repository 12/23/2017/12/25/19 [id number] Ambulatory [address] Repository 11/18/2017/11/19/19 [id number] Ambulatory [address] ing:MTLAB Repository 11/15/2017 [id number] Ambulatory BMSBuilding:W [facility] Repository 11/13/2017/11/18/19 [id number] Mery, Gael Inpatient [address] ing:PCURoom: Repository [id number]: 1 11/13/2017 [id number] Mery, Gael Ambulatory BMSBuilding:Trent Taylor MS.[facility] Repository 11/13/2017 [id number] Mery, Gael Ambulatory BMSBuilding:Trent Taylor MS.[facility] Repository 11/13/2017 [id number] Mery, Gael Ambulatory BMSBuilding:Trent Taylor MS.[facility] Repository 11/13/2017 [id number] Mery, Gael Ambulatory BMSBuilding:Trent Taylor MS.[facility] Repository 11/13/2017 [id number] Mery, Gael Ambulatory BMSBuilding:Trent Taylor MS.[facility] Repository 11/04/2017/11/08/19 [id number] Paintsil, Troy Inpatient [facility] 18 Encounter [facility] ing:PCURoom: Repository [id number]: 1 11/04/2017 [id number] Paintsil, Troy Ambulatory BMSBuilding:B [place].[facility] Repository 11/04/2017 [id number] Paint[place], [place] Ambulatory BMSBuilding:Trent Taylor MS.[facility] Repository 11/04/2017 [id number] Paintsil, [place] Ambulatory BMSBuilding:Trent Taylor MS.[facility] Repository 11/04/2017 [id number] Paintsil, [place] Ambulatory BMSBuilding:Trent Taylor MS.[facility] Repository 11/04/2017/11/08/19 [id number] Ambulatory BMSBuilding:Trent [place] MS.CF.[facility] Repository 10/25/2017/11/03/19 [id number] MALCOLM, Inpatient [place] [address] [facility] 10/21/2017/10/22/19 [id number] Ambulatory [address] Repository 10/21/2017/10/22/19 [id number] Ambulatory [address] Repository 10/21/2017/10/22/19 [id number] Ambulatory [address] [place] Repository 10/21/2017/10/22/19 [id number] Ambulatory [address] [place] Repository 10/21/2017/10/22/19 [id number] Ambulatory [address] [place] Repository 10/21/2017/10/23/19 [id number] Ambulatory [address] [place] Repository 10/21/2017/10/22/19 [id number] Ambulatory [address] [place] Repository 10/21/2017/10/22/19 [id number] Ambulatory [address] [place] Repository 10/21/2017/10/22/19 [id number] Ambulatory [address] [place] Repository 10/21/2017/10/22/19 [id number] Ambulatory [address] [place] Repository 10/21/2017/10/22/19 [id number] Ambulatory [address] Repository 10/20/[id number] [facility] ing:MTLAB Repository 09/23/2017/09/24/19 [id number] Ambulatory [place] ing:MTLAB Repository 08/20/2017/08/21/19 [id number] Ambulatory [address] [place] Repository 08/18/2017/08/19/19 [id number] Ambulatory [address] [place] Repository 08/16/2017/08/17/19 [id number] Ambulatory [address] [place] Repository 08/12/2017/08/13/19 [id number] Ambulatory [address] Repository 07/29/[id number] [facility] ing:MTLAB Repository 07/26/2017/07/27/19 [id number] Ambulatory [address] [place] Repository 07/01/2017/07/02/19 [id number] Ambulatory [address] ing:MTLAB Repository 06/30/2017/07/01/19 [id number] Ambulatory [address] Repository 06/24/2017/06/25/19 [id number] Ambulatory [address] Repository 06/22/[id number] [facility] ing:MASS Repository 06/04/2017/06/04/19 [id number] Ambulatory [address] Repository 06/03/2017/06/03/19 [id number] Ambulatory [address] ing:MTLAB Repository 05/21/2017/05/21/19 [id number] Ambulatory [address] [place] Repository 05/07/2017/05/07/19 [id number] Ambulatory [address] Repository 05/06/2017/05/06/19 [id number] Ambulatory [address] ing:MTLAB Repository PAYERS PAYERS ENCOUNTER GUARANTOR PAYER SUBSCRIBER SOURCE 03/29/2018 FAITH Alcantara Primary FAITH Taylor [facility] Insurance:KIRT WOODRUFF: [facility] [id number] *[place] [id number] [facility] Rep[facility] [place], [place] Number: [id number]: [phone] [id number] [phone] () Date:2626-11-10FSQB CLAIMS DEPTPO [address] [place] [address]NX: 03/29/2018 Secondary NOT GIVENUNK [place] Insurance:SELF PAY [facility] Number: Effective Repository Date:2018-03-29 03/22/2018 FAITH Alcantara Primary FAITH Taylor [facility] Insurance:MYCARE MINAHANDOB: [facility] [id number] *[place] [id number] St. [facility] Repository [place], [place] Number: [id number]: [phone] [id number] [phone] (HP) Date:6374-62-16DMHS CLAIMS DEPTPO [address] [address]WC: 03/22/2018 Secondary NOT GIVENUNK [place] Insurance:SELF PAY [facility] Number: Effective Repository Date:2018-02-24 02/21/2018 RHONDA Primary FAITH Taylor [facility] Insurance:MYCARE MINAHANDOB: [facility] [id number] *[place] [id number] [facility] [facility] Repository [place], [place] Number: [id number]: [phone] [id number] [phone] (HP) Date:7011-61-54DEKL CLAIMS DEPT[address] [address]GY: 02/21/2018 Secondary NOT GIVENUNK [place] Insurance:SELF PAY [facility] Number: Effective Repository Date:2018-01-25 02/07/2018 RHONDA Primary FAITH Taylor [facility] Insurance:MYCARE MINAHANDOB: [facility] [id number] *[place] [id number] St. [facility] Repository [place] Number: [id number]: [phone] [id number] [phone] (HP) Date:2708-71-75VTCI CLAIMS DEPTPO [address] [address]LE: 02/07/2018 Secondary NOT GIVENUNK [place] Insurance:SELF PAY [facility] Number: Effective Repository Date:2017-12-31 01/21/2018 FAITH Alcantara Primary FAITH [place]NEW [place]AN[place] Insurance:MYCARE MINAHANDOB: [facility] CARE [id number] *[place] [id number] St. Mary [facility] [place]: [id number]: [phone] [id number] [phone] (HP) Date:7546-87-55RVET CLAIMS DEPTPO [address] [place] [address]CH: 01/21/2018 Secondary NOT GIVENUNK [place] Insurance:SELF PAY [facility] Number: Effective Repository Date:2017-11-26 01/14/2018 FAITH Alcantara Primary FAITH GHOSHNEW [place]ANDRA Insurance:MYCARE MINAHANDOB: [facility] CARE [id number] *[place] [id number] St[address] [facility] Repository [place], [place] Number: [id number]: [phone] [id number] [phone] (HP) Date:5292-54-61BDZG CLAIMS DEPTPO [address] [place] [address]NQ: 01/14/2018 Secondary NOT GIVENUNK [place] Insurance:SELF PAY [facility] Number: Effective Repository Date:2018-01-14 12/26/2017 FAITH Alcantara Primary FAITH GHOSHMIDDLEBURGH Insurance:MYCARE MINAHANDOB: [facility] CARE [id number] *[place] [id number] St. [facility] Repository [place], [place] Number: [id number]: 330 [id number] [phone] (HP) Date:6116-30-14GKNG CLAIMS DEPTPO [address] [place] [address]CW: 12/26/2017 Secondary NOT GIVENUNK [place] Insurance:SELF PAY [facility] Number: Effective Repository Date:2017-12-26 12/26/2017 RHONDA Primary FAITH GHOSHNEW LONDONSANDRA Insurance:MYCARE MINAHANDOB: [facility] CARE [id number] *[place] [id number] St. [facility] Repository [place] Number: [id number]: 330 [id number] [phone] (HP) Date:3397-65-30LZDT CLAIMS DEPTPO [address] [place] [address]QG: 12/26/2017 Secondary NOT GIVENUNK [place] Insurance:SELF PAY [facility] Number: Effective Repository Date:2017-12-26 12/26/2017 RHONDA Primary FAITH Taylor [facility] Insurance:MYCARE MINAHANDOB: [facility] CARE [id number] *[place] [id number] St[address] [facility] Repository [place] Number: [id number]: 330 [id number] [phone] (HP) Date:1934-83-64ZVIN CLAIMS DEPTPO [address] [place] [address]GW: 12/26/2017 Secondary NOT GIVENUNK [place] Insurance:SELF PAY [facility] Number: Effective Repository Date:2017-12-26 12/26/2017 RHONDA Primary FAITH Alcantara [facility] Insurance:MYCARE MINAHANDOB: [facility] CARE [id number] *[place] [id number] St[address] [facility] Repository [place], [place] Number: [id number]: 330 [id number] [phone] (HP) Date:2732-42-16LUBF CLAIMS DEPTPO [address] [address]RM: 12/26/2017 Secondary NOT GIVENUNK [place] Insurance:SELF PAY [facility] Number: Effective Repository Date:2017-12-26 12/26/2017 RHONDA Primary FIATH Taylor [facility] Insurance:MYCARE MINAHANDOB: [facility] [id number] *[place] [id number] St. [facility] Repository [place], [place] Number: [id number]: [phone] [id number] [phone] () Date:7047-76-46SOLC CLAIMS [address]PO [address] [address]PG: 12/26/2017 Secondary NOT GIVENUNK [place] Insurance:SELF PAY [facility] Number: Effective Repository Date:2017-12-26 12/24/2017 FAITH Alcantara [id number] Primary FAITH MONCADA, Insurance:MYCARE MINAHANDOB: [place] [id number]: (330) [address] *[place] [id number] [place] [address] ([facility] Repository Number: [id number] Date:0627-73-35JKII CLAIMS DEPTPO [address] [place] [address]CS: 12/24/2017 Secondary NOT GIVENUNK [place] Insurance:SELF PAY [facility] Number: Effective Repository Date:2017-12-24 11/18/2017 FAITH Alcantara [id number] Primary FAITH ALLRED DRCECELIA, Insurance:MYCARE MINAHANDOB: [facility] [place] [id number]: (750) [address] *[place] [id number] [place] [address] ([facility] Repository Number: [id number] Date:6565-71-94OLOZ CLAIMS [address] [address]RT: 11/18/2017 Secondary NOT GIVENUNK [place] Insurance:SELF PAY [facility] Number: Effective Repository Date:2017-10-22 11/15/2017 FAITH Alcantara [id number] Primary FAITH ALLRED DRCECELIA, Insurance:MYCARE MINAHANDOB: [place] [id number]: (772) [address] *[place] [id number] [place] [address] ([facility] Repository Number: [id number] Date:2760-48-85MRVG CLAIMS DEPTPO [address] [address]CH: 11/15/2017 Secondary NOT GIVENUNK [place] Insurance:SELF PAY [facility] Number: Effective Repository Date:2017-11-15 11/13/2017 FAITH [id number] Primary FAITH MONCADA, Insurance:MYCARE MINAHANDOB: [facility] [place] [id number]: (330) [address] *[place] [id number] [place] [address] ([facility] Repository Number: [id number] Date:8920-55-00WCZW CLAIMS DEPTPO [address] [place] [address]AW: 11/13/2017 Secondary NOT GIVENUNK [place] Insurance:SELF PAY [facility] Number: Effective Repository Date:2017-11-13 11/13/2017 FAITH Alcantara [id number] Primary FAITH MONCADA, Insurance:[facility]: [facility] [id number]: (205) [address] *[place] [id number] [place] [address] ([facility] Repository Number: [id number] Date:8152-99-87PHNL CLAIMS [address]PO [address] [address]DA: 11/13/2017 Secondary NOT GIVENUNK [place] Insurance:SELF PAY [facility] Number: Effective Repository Date:2017-11-13 11/13/2017 FAITH Alcantara [id number] Primary FAITH MONCADA, Insurance:[facility] [place] [facility] HOSPITALDOB: [facility] [place] [id number]: (330) [address] *[place] [id number] [place] [address] ([facility] Repository Number: [id number] Date:0080-27-47WYYC CLAIMS [address]PTPO [address] [address]JM: 11/13/2017 Secondary NOT GIVENUNK [place] Insurance:SELF PAY [facility] Number: Effective Repository Date:2017-11-13 11/13/2017 FAITH Alcantara [id number] Primary FAITH MONCADA, Insurance:MYCARE MINAHANDOB: [facility] [place] [id number]: (330) [address] *[place] [id number] [place] [address] () [employer] Repository Number: [id number] Date:1267-04-22YPSF CLAIMS DEPTPO [address] [address]NQ: 11/13/2017 Secondary NOT GIVENUNK [place] Insurance:[facility]LF PAY [facility]: Effective Repository Date:2017-11-13 11/13/2017 FAITH Alcantara [id number] Primary FAITH MONCADA, Insurance:MYCARE MINAHANDOB: [place] [id number]: (330) [address] *[place] [id number] [place] [address] () [facility] Repository Number: [id number] Date:5153-80-38YBAR CLAIMS [address] [address]SR: 11/13/2017 Secondary NOT GIVENUNK [place] Insurance:SELF PAY [facility] Number: Effective Repository Date:2017-11-13 11/13/2017 FAITH Alcantara [id number] Primary FAITH ALLRED DRCECELIA, Insurance:MYCARE MINAHANDOB: [facility] [place] [id number]: (330) [address] *[place] [id number] [place] [address] ([facility] Repository Number: [id number] Date:1106-30-54LJKG CLAIMS DEPTPO [address] [address]FT: 11/13/2017 Secondary NOT GIVENUNK [place] Insurance:SELF PAY [facility] Number: Effective Repository Date:2017-11-13 11/04/2017 FAITH Alcantara [id number] Primary FAITH ALLRED DRCECELIA, Insurance:MYCARE MINAHANDOB: [place] [id number]: (330) [address] *[place] [id number] [place] [address] () [facility] Repository Number: [id number] Date:6326-89-65JBQK CLAIMS DEPTPO [address] [address]YW: 11/04/2017 Secondary NOT GIVENUNK [place] Insurance:SELF PAY [facility] Number: Effective Repository Date:2017-11-04 11/04/2017 FAITH Alcantara [id number] Primary FAITH MONCADA, Insurance:MYCARE MINAHANDOB: [facility] [place] [id number]: (330) CR[address] *[place] [id number] [place] [address] () [facility] Repository Number: [id number] Date:9724-62-16JHWT CLAIMS DEPTPO [address] [place] [address]XB: 11/04/2017 Secondary NOT GIVENUNK [place] Insurance:SELF PAY [facility] Number: Effective Repository Date:2017-11-04 11/04/2017 RHONDA [id number] Primary FAITH MONCADA, Insurance:[facility] SYSTEM[facility]: [facility] [place] [id number]: (330) CR[address] *[place] [id number] [place] [address] () [facility] Repository Number: [id number] Date:7155-76-24NRLQ CLAIMS DEPTPO [address] [place] [address]NK: 11/04/2017 Secondary NOT GIVENUNK [place] Insurance:SELF PAY [facility] Number: Effective Repository Date:2017-11-04 11/04/2017 FAITH [id number] Primary FAITH MONCADA, Insurance:[facility] [place] [facility]OSPITALDOB: [facility] [place] [id number]: (684) CR[address] *[place] [id number] [place] [address] () [facility] Repository Number: [id number] Date:1692-65-33QBRD CLAIMS DEPTPO [address] [place] [address]CS: 11/04/2017 Secondary NOT GIVENUNK [place] Insurance:SELF PAY [facility] Number: Effective Repository Date:2017-11-04 11/04/2017 FAITH [id number] Primary FAITH VALENTINECECELIA, Insurance:[facility] [facility] [place] [id number]: [phone]) CRSC *[place] [id number] [place] [address] ([facility] Repository Number: [id number] Date:[id number] CLAIMS [address] [address]DS: 11/04/2017 Secondary NOT GIVENUNK [place] Insurance:SELF PAY [facility] Number: Effective Repository Date:2017-11-04 11/04/2017 FAITH Alcantara Primary FAITH Taylor [facility] Insurance:[facility]B: [facility] [id number] E CRSC *[place] [id number] [facility] Repository [place], [place] Number: [id number]: (256) [id number] [facility]3175 () Date:9744-86-32WSLW CLAIMS [address] [place] [address]BL: 11/04/2017 Secondary NOT GIVENUNK [place] Insurance:SELF PAY [facility] Number: Effective Repository Date:2017-11-04 10/20/2017 FAITH Alcantara [id number] Primary FAITH [facility]RED [facility], Insurance:[facility]CP[facility] MINAHANDOB: [facility] [id number]: [phone]) CRSC *[place] [id number] Ville [address] ([facility] Repository Number: [id number] Date:8742-91-26KFPQ [address] [address]BQ: 10/20/2017 Secondary NOT GIVENUNK [place] Insurance:SELF PAY [facility] Number: Effective Repository Date:2017-10-20 09/23/2017 FAITH Alcantara [id number] Primary FAITH [facility], Insurance:MYCARE MINAHANDOB: [facility] [place] [id number]: [phone]) CRSC *[place] [id number] [place] [address] ([facility] Repository Number: [id number] Date:[id number] [address]S [address] [address]GU: 09/23/2017 Secondary NOT GIVENUNK [place] Insurance:SELF PAY [facility] Number: Effective Repository Date:2017-07-26 07/29/2017 FAITH Alcantara [id number] Primary FAITH MONCADA, Insurance:MYCARE MINAHANDOB: [place] [id number]: [phone]) CRSC *[place] [id number] [place] [address] () [facility] Repository Number: [id number] Date:2812-01-27PKLP [address]S [address] [address]OZ: 07/29/2017 Secondary NOT GIVENUNK [place] Insurance:SELF PAY [facility] Number: Effective Repository Date:2017-07-29 07/01/2017 FAITH [id number] Primary FAITH MONCADA, Insurance:MYCARE MINAHANDOB: [facility] [place] [id number]: [phone]) CRSC *[place] [id number] [place] [address] ([facility] Number: [id number] Date:0160-25-79BPGE [address]S [address] [address]VF: 07/01/2017 Secondary NOT GIVENUNK [place] Insurance:SELF PAY [facility] Number: Effective Repository Date:2017-06-24 06/22/2017 FAITH Alcantara [id number] Primary NOT GIVENUNK [place] CARYL MONCADA, Insurance:[place] [facility] [place] [id number]: [phone]) [place] [address] () Number: Effective Repository Date:2016-03-30 06/03/2017 FAITH [id number] Primary FAITH MONCADA, Insurance:MYCARE MINAHANDOB: [place] [id number]: [phone]) CRSC *[place] [id number] [place] [address] () [employer] Repository Number: [id number] Date:2939-48-02GJEJ [address] [address]CK: 06/03/2017 Secondary NOT GIVENUNK [place] Insurance:SELF PAY [facility] Number: Effective Repository Date:2017-06-03 05/06/2017 Faith Alcantara [id number] Primary Faith Moncada, Insurance[facility] ChinmayB: [facility] [id number]: [phone]) CRSC *[place] [id number] [facility] [phone] () [facility] Repository Number: [id number] Date:[id number] CLAIMS [address] [address]KU: 05/06/2017 Secondary NOT GIVENUNK [place] Insurance:SELF PAY [facility] Number: Effective Repository Date:2017-04-08
== END 2018-03-22 11:00 | disposition home or self-care (01) ==
LOC: MTLAB 10:51
PROVIDERS: Family Provider Family Medicine; PCP Family Medicine; Referring Provider Psychiatry & Neurology Psychiatry; Visit Provider Psychiatry & Neurology Psychiatry
DX: Z79.899 Other long term (current) drug therapy (principal)
CPT/HCPCS: 36415; 85025

== ENCOUNTER 2018-04-21 10:08 | Outpatient (RCR) | payer MEDICARE, SELFPAY ==
[2018-04-21 12:44] LABS: Absolute Lymphocyte Count 1.49 X10^3/ul (0.83-4.51); Absolute Neutrophil Count 2.8 X10^3/uL (2.0-7.7); Basophil# 0.02 X10^3/uL; Basophil% 0.4 % (0-1); Eosinophil# 0.08 X10^3/uL; Eosinophils% 1.6 % (0-5); Hematocrit 41.7 % (40-54); Hemoglobin 14.4 g/dl (13.0-16.5); Lymphocyte # 1.49 X10^3/ul (4.0); Lymphocyte % 30.6 % (19-41); Mean Corp Hgb Conc 34.5 g/gl (32-36); Mean Corpuscular Hgb 27.9 pg (27.0-32.0); Mean Corpuscular Volume 80.7 fL (80-94); Mean Platelet Vol. 11.7 fl (6.2-12.0); Monocyte# 0.49 X10^3/uL; Monocyte% 10.1 % (0-10); Neutrophil # 2.78 X10^3/uL (2.7-7.7); Neutrophil % 57.1 % (47-70); Platelet Count 185 K/mm3 (150-450); RBC Distribution Width CV 13.7 % (11.6-14.6); RBC Distribution Width SD 39.6 fl (35.1-43.9); Red Blood Count 5.17 M/mm3 (4.6-6.2); White Blood Count 4.9 K/mm3 (4.4-11.0)
[2018-04-21 12:49] LABS: POSITIVE COUNT NO; POSITIVE DIFFERENTIAL NO; POSITIVE MORPHOLOGY NO
== END 2018-04-21 11:00 | disposition home or self-care (01) ==
LOC: MTLAB 10:08
PROVIDERS: Family Provider Family Medicine; PCP Family Medicine; Referring Provider Psychiatry & Neurology Psychiatry; Visit Provider Psychiatry & Neurology Psychiatry
DX: Z79.899 Other long term (current) drug therapy (principal)
CPT/HCPCS: 36415; 85025

== ENCOUNTER 2018-05-23 10:09 | Outpatient (RCR) | payer MEDICARE, SELFPAY ==
[2018-05-23 12:03] LABS: Absolute Lymphocyte Count 1.07 X10^3/ul (0.83-4.51); Absolute Neutrophil Count 2.8 X10^3/uL (2.0-7.7); Basophil# 0.01 X10^3/uL; Basophil% 0.2 % (0-1); Eosinophil# 0.05 X10^3/uL; Eosinophils% 1.1 % (0-5); Hematocrit 40.4 % (40-54); Hemoglobin 13.7 g/dl (13.0-16.5); Lymphocyte # 1.07 X10^3/ul (4.0); Lymphocyte % 23.6 % (19-41); Mean Corp Hgb Conc 33.9 g/gl (32-36); Mean Corpuscular Hgb 27.7 pg (27.0-32.0); Mean Corpuscular Volume 81.6 fL (80-94); Mean Platelet Vol. 11.1 fl (6.2-12.0); Monocyte# 0.59 X10^3/uL; Neutrophil % 61.9 % (47-70); Platelet Count 162 K/mm3 (150-450); RBC Distribution Width CV 13.8 % (11.6-14.6); RBC Distribution Width SD 41.1 fl (35.1-43.9); Red Blood Count 4.95 M/mm3 (4.6-6.2); White Blood Count 4.5 K/mm3 (4.4-11.0)
[2018-05-23 12:04] LABS: POSITIVE COUNT NO; POSITIVE DIFFERENTIAL NO; POSITIVE MORPHOLOGY NO
== END 2018-05-23 11:00 | disposition home or self-care (01) ==
LOC: MTLAB 10:09
PROVIDERS: Family Provider Family Medicine; PCP Family Medicine; Referring Provider Psychiatry & Neurology Psychiatry; Visit Provider Psychiatry & Neurology Psychiatry
DX: Z79.899 Other long term (current) drug therapy (principal)
CPT/HCPCS: 36415; 85025

== ENCOUNTER 2018-07-26 15:33 | Outpatient (RCR) | payer MEDICARE, SELFPAY ==
[2018-07-26 17:42] LABS: Absolute Lymphocyte Count 2.46 X10^3/ul (0.83-4.51); Absolute Neutrophil Count 3.7 X10^3/uL (2.0-7.7); Basophil# 0.04 X10^3/uL; Basophil% 0.6 % (0-1); Eosinophil# 0.13 X10^3/uL; Eosinophils% 1.8 % (0-5); Hematocrit 47.3 % (40-54); Lymphocyte # 2.46 X10^3/ul (4.0); Lymphocyte % 34.4 % (19-41); Mean Corp Hgb Conc 33.8 g/gl (32-36); Mean Corpuscular Volume 82.7 fL (80-94); Monocyte# 0.82 X10^3/uL; Monocyte% 11.5 % (0-10); Neutrophil % 51.6 % (47-70); Platelet Count 219 K/mm3 (150-450); RBC Distribution Width CV 13.7 % (11.6-14.6); Red Blood Count 5.72 M/mm3 (4.6-6.2); White Blood Count 7.2 K/mm3 (4.4-11.0)
[2018-07-26 17:47] LABS: POSITIVE COUNT NO; POSITIVE DIFFERENTIAL NO; POSITIVE MORPHOLOGY NO
== END 2018-08-23 16:00 | disposition home or self-care (01) ==
LOC: MTLAB 15:33
PROVIDERS: Family Provider Family Medicine; PCP Family Medicine; Referring Provider Psychiatry & Neurology Psychiatry; Visit Provider Psychiatry & Neurology Psychiatry
DX: Z79.899 Other long term (current) drug therapy (principal)
CPT/HCPCS: 36415; 85025

== ENCOUNTER 2018-08-25 11:10 | Outpatient (RCR) | payer MEDICARE, SELFPAY ==
[2018-08-25 12:36] LABS: Absolute Lymphocyte Count 1.15 X10^3/ul (0.83-4.51); Absolute Neutrophil Count 2.8 X10^3/uL (2.0-7.7); Basophil# 0.02 X10^3/uL; Basophil% 0.4 % (0-1); Eosinophil# 0.08 X10^3/uL; Eosinophils% 1.8 % (0-5); Hematocrit 44.1 % (40-54); Hemoglobin 15.1 g/dl (13.0-16.5); Lymphocyte # 1.15 X10^3/ul (4.0); Lymphocyte % 25.2 % (19-41); Mean Corp Hgb Conc 34.2 g/gl (32-36); Mean Corpuscular Hgb 27.5 pg (27.0-32.0); Mean Corpuscular Volume 80.2 fL (80-94); Mean Platelet Vol. 11.3 fl (6.2-12.0); Monocyte# 0.49 X10^3/uL; Monocyte% 10.7 % (0-10); Neutrophil # 2.82 X10^3/uL (2.7-7.7); Neutrophil % 61.7 % (47-70); Platelet Count 172 K/mm3 (150-450); RBC Distribution Width CV 13.9 % (11.6-14.6); RBC Distribution Width SD 40.7 fl (35.1-43.9); White Blood Count 4.6 K/mm3 (4.4-11.0)
[2018-08-25 12:41] LABS: POSITIVE COUNT NO; POSITIVE DIFFERENTIAL NO; POSITIVE MORPHOLOGY NO
== END 2018-08-25 12:00 | disposition home or self-care (01) ==
LOC: MTLAB 11:10
PROVIDERS: Family Provider Family Medicine; PCP Family Medicine; Referring Provider Psychiatry & Neurology Psychiatry; Visit Provider Psychiatry & Neurology Psychiatry
DX: Z79.899 Other long term (current) drug therapy (principal)
CPT/HCPCS: 36415; 85025

== ENCOUNTER 2018-09-26 12:28 | Outpatient (RCR) | payer MEDICARE, SELFPAY ==
[2018-09-26 13:50] LABS: Absolute Lymphocyte Count 1.48 X10^3/ul (0.83-4.51); Absolute Neutrophil Count 4.2 X10^3/uL (2.0-7.7); Basophil# 0.02 X10^3/uL; Basophil% 0.3 % (0-1); Eosinophil# 0.06 X10^3/uL; Eosinophils% 0.9 % (0-5); Hematocrit 45.9 % (40-54); Lymphocyte # 1.48 X10^3/ul (4.0); Lymphocyte % 23.1 % (19-41); Mean Corp Hgb Conc 34.9 g/gl (32-36); Mean Corpuscular Hgb 28.4 pg (27.0-32.0); Mean Corpuscular Volume 81.4 fL (80-94); Monocyte# 0.63 X10^3/uL; Monocyte% 9.8 % (0-10); Neutrophil # 4.21 X10^3/uL (2.7-7.7); Neutrophil % 65.7 % (47-70); Platelet Count 171 K/mm3 (150-450); RBC Distribution Width CV 13.4 % (11.6-14.6); RBC Distribution Width SD 40.2 fl (35.1-43.9); Red Blood Count 5.64 M/mm3 (4.6-6.2); White Blood Count 6.4 K/mm3 (4.4-11.0)
[2018-09-26 13:56] LABS: POSITIVE COUNT NO; POSITIVE DIFFERENTIAL NO; POSITIVE MORPHOLOGY NO
[2018-09-27 10:22] LABS: Cholesterol 218 mg/dL (200); Ferritin 45 ng/mL (26-388); High Density Lipoprotein 57 mg/dL; Iron 70 ug/dL (65-175); Iron Binding Capacity,Total 287 ug/dL (250-450); Triglycerides 210 mg/dL; Very Low Density Lipoprotein 42 mg/dL (5-40)
[2018-09-28 05:06] LABS: Immunoglobulin A 59 mg/dL (90-386); Immunoglobulin G 669 mg/dL (700-1600)
[2018-09-28 12:20] LABS: Immunoglobulin M 6 mg/dL (20-172); Transferrin 251 mg/dL (200-370)
== END 2018-09-26 13:00 | disposition home or self-care (01) ==
LOC: MTLAB 12:28
PROVIDERS: Family Provider Family Medicine; PCP Family Medicine; Referring Provider Psychiatry & Neurology Psychiatry; Visit Provider Psychiatry & Neurology Psychiatry
DX: Z79.899 Other long term (current) drug therapy (principal); E87.6 Hypokalemia; K59.00 Constipation, unspecified; E11.9 Type 2 diabetes mellitus without complications
CPT/HCPCS: 36415; 80061; 82728; 82784; 83036; 83540; 83550; 84466; 85025

== ENCOUNTER 2019-01-19 18:25 | Emergency (ER) | payer MEDICARE, SELFPAY ==
[2019-01-19 18:27] VITALS: BP 132/89; PULSE 103; PULSE 106; RESP 14; TEMP 36.4; O2SAT 94; O2SAT 95; BMI 29.2
--- NOTE | 2019-01-19 18:36 | RAD_ITS ---
STUDY: X-RAY - ABDOMEN/PELVIS REASON FOR EXAM: Male, 58 years old. Constipation. Abdominal pain. TECHNIQUE: Supine and erect views of the abdomen. COMPARISON: 11/05/2017. FINDINGS: Lung bases are clear. There is a non-obstructive bowel gas pattern. Diffuse, large stool burden. There is no organomegaly. No abnormal calcifications. Soft tissues and bony structures are unremarkable. RAD/Abd Inc Decub and/or Erect IMPRESSION: Large stool burden consistent with constipation. Otherwise negative study. Electronically Signed: Lily Madsen MD at 19:38 EDT Tel , Service support ,
--- NOTE | 2019-01-19 19:05 | ED.DCSUM_ITS ---
History of Present Illness Chief Complaint: Constipation Informant: Patient, - Onset: Days Context: Gradual Onset Timing: Continuous Quality: No BM Location: GI Current Severity: Mild Maximum Severity: Mild Worsened by: Nothing Relieved by: Nothing Associated Symptoms: Patient reports he is passing gas Narrative: Patient is a 58-year-old male had reversal of ileostomy and presents with chief complaint of no bowel movement for days. He is passing gas. Does complain of slight distention. He has no other complaints. Prior similar symptoms: Yes Recent Illness/Hospitalization: Yes - Past Medical History (1) Diabetes mellitus Status: Chronic (2) HLD (hyperlipidemia) Status: Chronic (3) HTN (hypertension) Status: Chronic (4) Nicotine abuse Status: Chronic (5) Pulmonary embolism Status: Chronic (6) S/P ileostomy Status: Chronic (7) Schizoaffective disorder Status: Chronic Past Medical History - Allergies and Home Meds Allergies/Adverse Reactions: Allergies risperidone [From Risperdal] Adverse Reaction (Verified 01/19/19 18:27) Other Primary Care Physician: Mohan Christianson MD [Primary Care Provider] - 3-5 Days if not improving Prior records reviewed: Yes Surgical History: noncontributory, - - Ileostomy w/ colon resection. Lives: [facility] Smoking Status: Current every day smoker Alcohol: None Drugs: None - Family History Maternal Family History: Reports: High Cholesterol Paternal Family History: Reports: Unknown Review of Systems General: Denies: Chills, Fever, Malaise, Sweats Cardiovascular: Denies: Chest pain, Palpitations Respiratory: Denies: Dyspnea, Cough, Dyspnea on exertion Gastrointestinal: Reports: Constipation. Denies: Abdominal pain, Nausea, Vomiting, Diarrhea, Melena, Hematochezia Genitourinary: Denies: Dysuria, Hematuria, Frequency Musculoskeletal: Denies: Myalgias, Arthralgias, Neck pain, Back pain, Swelling, Extremity Pain, -, - Physical Exam Vital Signs/Narrative: Vital Signs Temp Pulse Resp BP Pulse Ox 01/19/19 18:27 97.6 F L 103 H 14 132/89 H 95 Inital Vital Signs reviewed: Yes General: Well nourished, Well developed, No Acute Distress Head: Normocephalic, Atraumatic Eyes: Perrl, EOMI. Negative for: Pale conjunctiva, Scleral icterus ENT: Moist mucous membranes, No rhinorrhea Neck: Supple, Nontender, No lymphadenopathy, No JVD Cardiovascular: Regular rate, Regular rhythm, No murmurs, Normal S1, Normal S2 Respiratory: No distress, CTA bilaterally, Chest nontender Abdomen: Soft, Nontender, Normal bowel sounds, Hypoactive bowel sounds - Abdomen is slightly distended and tympanitic.. Negative for: Hepatomegaly, Splenomegaly, Pulsatile mass, Ventral hernia, Inguinal hernia, Umbilical hernia Rectal: - - No fissures or fistulas noted. There is no stool in the rectal vault. Back: Nontender, Normal Inspection Extremities: Nontender, No edema Skin: Normal color, No rash, No Trauma. Negative for: Cyanosis, Diaphoresis, Jaundice Neurological: Alert, Oriented x3, Cranial nerves II-XII grossly intact, Normal Strength, Normal Sensation Psychological: Normal affect, Normal Mood Diagnostic/Tx/Re-eval Chest X-Ray - ED: 2 View, Read by ED Physician, - - View x-ray of the abdomen was obtained which was massive gas pattern with significant fecal stasis throughout. - Medical Decision Making We will obtain x-ray to determine if patient has evidence of ileus versus small bowel obstruction versus obstipation. Based on history and x-ray results patient has obstipation. ED Disposition - Plan for ED Patient: Disposition: [facility] Diagnosis: Obstipation Instructions: CONSTIPATION (Adult) Referrals: Mohan Christianson MD [Primary Care Provider] - 3-5 Days if not improving Additional Instructions: Morning have Mando drink 10 ounces of mag citrate. 4 hours after consuming the mag citrate 1 glass of MiraLAX. 1 glass of MiraLAX every hour until he has results.
--- NOTE | 2019-01-19 19:49 | NURSING ---
REPORT CALLED TO [facility], UPDATED THAT WE WERE UNABLE TO OBTAIN A RIDE UNTIL AFTER MIDNIGHT, NURSE AT FACILITY STATED THAT SHE MIGHT BE ABLE TO GET THE PERSON THAT DOES TRANSPORT TO COME IN AND PICK HIM UP.
[2019-01-19 20:38] VITALS: BP 124/90; PULSE 96; RESP 17; RESP 18; O2SAT 95
== END 2019-01-19 20:39 | disposition skilled nursing facility (03) ==
PROVIDERS: Emergency Provider Emergency Medicine; Family Provider Family Medicine; PCP Family Medicine
DX: K59.00 Constipation, unspecified (principal); I10 Essential (primary) hypertension; E78.5 Hyperlipidemia, unspecified; E11.9 Type 2 diabetes mellitus without complications; F25.9 Schizoaffective disorder, unspecified; F17.200 Nicotine dependence, unspecified, uncomplicated; Z79.01 Long term (current) use of anticoagulants; Z86.711 Personal history of pulmonary embolism; Z79.84 Long term (current) use of oral hypoglycemic drugs; Z79.899 Other long term (current) drug therapy
CPT/HCPCS: 74019; 99284

== ENCOUNTER 2019-02-21 13:05 | Outpatient (RCR) | payer MEDICARE, SELFPAY ==
[2019-02-21 15:19] LABS: Absolute Lymphocyte Count 1.53 X10^3/uL (0.83-4.51); Absolute Neutrophil Count 2.8 X10^3/uL (2.0-7.7); Basophil# 0.06 X10^3/uL; Basophil% 1.2 % (0-1); Eosinophil# 0.06 X10^3/uL; Eosinophils% 1.2 % (0-5); Hematocrit 49.3 % (40-54); Hemoglobin 16.3 g/dL (13.0-16.5); Lymphocyte # 1.53 X10^3/ul (4.0); Lymphocyte % 31.2 % (19-41); Mean Corp Hgb Conc 33.1 g/dL (32-36); Mean Corpuscular Hgb 28.1 pg (27.0-32.0); Mean Corpuscular Volume 84.9 fL (80-94); Mean Platelet Vol. 10.5 fl (6.2-12.0); Monocyte# 0.41 X10^3/uL; Monocyte% 8.4 % (0-10); NRBC Flagged by Analyzer 0 % (0-5); Neutrophil # 2.82 X10^3/uL (2.7-7.7); Neutrophil % 57.6 % (47-70); Platelet Count 250 K/mm3 (150-450); RBC Distribution Width CV 14.4 % (11.6-14.6); RBC Distribution Width SD 43.8 fl (35.1-43.9); Red Blood Count 5.81 M/mm3 (4.6-6.2); White Blood Count 4.9 K/mm3 (4.4-11.0)
== END 2019-02-21 18:00 | disposition home or self-care (01) ==
LOC: MTLAB 13:05
PROVIDERS: Family Provider Family Medicine; PCP Family Medicine; Referring Provider Psychiatry & Neurology Psychiatry; Visit Provider Psychiatry & Neurology Psychiatry
DX: Z79.899 Other long term (current) drug therapy (principal)
CPT/HCPCS: 36415; 85025

== ENCOUNTER 2019-03-21 10:57 | Outpatient (RCR) | payer MEDICARE, MEDICAID, SELFPAY ==
[2019-03-21 12:52] LABS: Absolute Lymphocyte Count 1.73 X10^3/uL (0.83-4.51); Absolute Neutrophil Count 3.1 X10^3/uL (2.0-7.7); Basophil# 0.05 X10^3/uL; Basophil% 0.9 % (0-1); Eosinophil# 0.16 X10^3/uL; Eosinophils% 2.9 % (0-5); Hematocrit 47.6 % (40-54); Hemoglobin 15.3 g/dL (13.0-16.5); Lymphocyte # 1.73 X10^3/ul (4.0); Lymphocyte % 31.1 % (19-41); Mean Corp Hgb Conc 32.1 g/dL (32-36); Mean Platelet Vol. 11.4 fl (6.2-12.0); Monocyte# 0.53 X10^3/uL; Monocyte% 9.5 % (0-10); NRBC Flagged by Analyzer 0 % (0-5); Neutrophil # 3.09 X10^3/uL (2.7-7.7); Neutrophil % 55.4 % (47-70); Platelet Count 237 K/mm3 (150-450); RBC Distribution Width CV 14.3 % (11.6-14.6); RBC Distribution Width SD 43.8 fl (35.1-43.9); Red Blood Count 5.67 M/mm3 (4.6-6.2); White Blood Count 5.6 K/mm3 (4.4-11.0)
== END 2019-03-21 18:00 | disposition home or self-care (01) ==
LOC: MTLAB 10:57
PROVIDERS: Family Provider Family Medicine; PCP Family Medicine; Referring Provider Psychiatry & Neurology Psychiatry; Visit Provider Psychiatry & Neurology Psychiatry
DX: Z79.899 Other long term (current) drug therapy (principal)
CPT/HCPCS: 36415; 85025

== ENCOUNTER 2019-04-20 13:53 | Outpatient (RCR) | payer MEDICARE, MEDICAID, SELFPAY ==
[2019-04-20 16:08] LABS: Absolute Lymphocyte Count 1.88 X10^3/uL (0.83-4.51); Absolute Neutrophil Count 3.7 X10^3/uL (2.0-7.7); Basophil# 0.04 X10^3/uL; Basophil% 0.6 % (0-1); Eosinophil# 0.15 X10^3/uL; Eosinophils% 2.4 % (0-5); Hematocrit 51.8 % (40-54); Hemoglobin 17.2 g/dL (13.0-16.5); Lymphocyte # 1.88 X10^3/ul (4.0); Lymphocyte % 29.7 % (19-41); Mean Corp Hgb Conc 33.2 g/dL (32-36); Mean Corpuscular Hgb 27.6 pg (27.0-32.0); Mean Corpuscular Volume 83.1 fL (80-94); Mean Platelet Vol. 11.1 fl (6.2-12.0); Monocyte# 0.57 X10^3/uL; NRBC Flagged by Analyzer 0 % (0-5); Neutrophil # 3.67 X10^3/uL (2.7-7.7); Platelet Count 192 K/mm3 (150-450); RBC Distribution Width CV 15.1 % (11.6-14.6); RBC Distribution Width SD 44.7 fl (35.1-43.9); Red Blood Count 6.23 M/mm3 (4.6-6.2); White Blood Count 6.3 K/mm3 (4.4-11.0)
== END 2019-04-20 18:00 | disposition home or self-care (01) ==
LOC: MTLAB 13:53
PROVIDERS: Family Provider Family Medicine; PCP Family Medicine; Referring Provider Psychiatry & Neurology Psychiatry; Visit Provider Psychiatry & Neurology Psychiatry
DX: Z79.899 Other long term (current) drug therapy (principal)
CPT/HCPCS: 36415; 85025

== ENCOUNTER 2019-05-22 09:51 | Outpatient (RCR) | payer MEDICARE, MEDICAID, SELFPAY ==
[2019-05-22 12:23] LABS: Absolute Lymphocyte Count 1.42 X10^3/uL (0.83-4.51); Absolute Neutrophil Count 3.7 X10^3/uL (2.0-7.7); Basophil# 0.03 X10^3/uL; Basophil% 0.5 % (0-1); Eosinophil# 0.06 X10^3/uL; Hematocrit 46.3 % (40-54); Hemoglobin 15.6 g/dL (13.0-16.5); Lymphocyte # 1.42 X10^3/ul (4.0); Lymphocyte % 24.5 % (19-41); Mean Corp Hgb Conc 33.7 g/dL (32-36); Mean Corpuscular Hgb 27.6 pg (27.0-32.0); Mean Corpuscular Volume 81.8 fL (80-94); Mean Platelet Vol. 10.7 fl (6.2-12.0); Monocyte# 0.61 X10^3/uL; Monocyte% 10.5 % (0-10); NRBC Flagged by Analyzer 0 % (0-5); Neutrophil # 3.65 X10^3/uL (2.7-7.7); Neutrophil % 63.2 % (47-70); Platelet Count 181 K/mm3 (150-450); RBC Distribution Width CV 14.4 % (11.6-14.6); RBC Distribution Width SD 41.5 fl (35.1-43.9); Red Blood Count 5.66 M/mm3 (4.6-6.2); White Blood Count 5.8 K/mm3 (4.4-11.0)
[2019-05-22 12:51] LABS: ALB/GLOB Ratio 1.1 RATIO (0.9-2.4); AST(SGOT) 23 U/L (15-37); Alanine Aminotransfer ALT/SGPT 51 U/L (16-61); Alkaline Phosphatase 89 U/L (45-117); Anion Gap 8 (5-15); BUN 15 mg/dL (7-18); BUN/Creat Ratio 15.6 RATIO (10-20); Calcium,Total 9.4 mg/dL (8.5-10.1); Chloride 104 mmol/L (98-107); Cholesterol 119 mg/dL (200); Creatinine, Serum 0.96 mg/dL (0.70-1.30); EST Glomerular Filtration Rate 86 mL/min (>60); Est Glom Filt Rate - Afr Amer 104 mL/min (>60); Globulin 3.7 g/dL (2.2-4.2); Glucose 181 mg/dL (74-106); High Density Lipoprotein 32 mg/dL; Potassium 3.8 mmol/L (3.5-5.1); Protein, Total 7.7 g/dL (6.4-8.2); Sodium Level 135 mmol/L (136-145); Thyroid Stim Hormone (TSH) 1.39 uIU/mL (0.358-3.74); Triglycerides 183 mg/dL; Very Low Density Lipoprotein 37 mg/dL (5-40)
== END 2019-05-22 18:00 | disposition home or self-care (01) ==
LOC: MTLAB 09:51
PROVIDERS: Family Provider Family Medicine; PCP Family Medicine; Referring Provider Psychiatry & Neurology Psychiatry; Visit Provider Psychiatry & Neurology Psychiatry
DX: Z79.899 Other long term (current) drug therapy (principal)
CPT/HCPCS: 36415; 80053; 80061; 84443; 85025

== ENCOUNTER → 2019-06-01 15:50 | Outpatient (CLI) | payer MEDICARE, MEDICAID, SELFPAY ==
--- NOTE | 2019-06-01 15:54 | RAD_ITS ---
STUDY: X-RAY - LEFT SHOULDER REASON FOR EXAM: Male, 59 years old. left shoulder pain, fell last night TECHNIQUE: 4 view(s) of the shoulder. COMPARISON: None. FINDINGS: Narrowed glenohumeral articulation. Spurring of the acromioclavicular joint. Normal acromion. Spurring of the medial humeral head and inferior glenoid process There is deformity of the humeral head and neck suggestive of old trauma however there is no definitive evidence for acute fracture. CT may be useful for further evaluation if clinically warranted The soft tissue structures are unremarkable. Normal visualized pulmonary apex. RAD/Shoulder min 2 Views IMPRESSION: Degenerative changes and findings suggestive of old trauma. No definitive evidence for acute fracture. Electronically Signed: Adrien Reza MD at 17:10 EST , Service support ,
--- NOTE | 2019-06-01 15:54 | RAD_ITS ---
STUDY: X-RAY - RIGHT ELBOW REASON FOR EXAM: Male, 59 years old. elbow pain, fell last night TECHNIQUE: 4 view(s) of the elbow. COMPARISON: None. FINDINGS: Normal visualized humerus, and ulna. Acute intra-articular hairline fracture of the radial head Normal radiocapitellar and ulnotrochlear articulations. The soft tissue structures are unremarkable. RAD/Elbow min 3 Views IMPRESSION: Acute intra-articular hairline fracture of the radial head Electronically Signed: Adrien Reza MD at 17:07 EST , Service support ,
== END ==
PROVIDERS: PCP Family Medicine; Referring Provider Family Medicine; Visit Provider Family Medicine
DX: S52.121A Displaced fracture of head of right radius, initial encounter for closed fracture (principal); W19.XXXA Unspecified fall, initial encounter; M19.012 Primary osteoarthritis, left shoulder
CPT/HCPCS: 73030; 73080

== ENCOUNTER → 2019-06-15 14:30 | Outpatient (CLI) | payer MEDICARE, MEDICAID, SELFPAY ==
--- NOTE | 2019-06-15 14:43 | RAD_ITS ---
STUDY: X-RAY - RIGHT ELBOW REASON FOR EXAM: Male, 59 years old. FALL 2 WEEKS AGO, CONTINUED PAIN TECHNIQUE: 3 view(s) of the elbow. COMPARISON: June 01, 2019 FINDINGS: There is a intra-articular radial head fracture that is slightly less apparent than the prior examination. Normal visualized humerus and ulna. Normal radiocapitellar and ulnotrochlear articulations. The soft tissue structures are unremarkable. RAD/Elbow min 3 Views IMPRESSION: Healing radial head fracture. Electronically Signed: Milagros Dasilva MD at 22:29 EST Tel , Service support ,
--- NOTE | 2019-06-15 14:43 | RAD_ITS ---
STUDY: X-RAY - RIGHT WRIST REASON FOR EXAM: Continued pain, fall 2 weeks ago. TECHNIQUE: 3 view(s) of the wrist were obtained. COMPARISON: None. FINDINGS: Normal visualized distal radius and ulna. Normal radiocarpal articulation. Normal distal radioulnar articulation. Normal carpal bones. Normal carpal articulations. Normal carpometacarpal articulation of the thumb. Normal second through fifth carpometacarpal articulations. There is remote healed deformity of the first metacarpal. The soft tissue structures are unremarkable. RAD/Wrist min 3 Views IMPRESSION: Remote healed fracture deformity of the first metacarpal. No demonstrated recent fracture. Electronically Signed: Rui Bernal MD at 15:12 EST Tel , Service support ,
== END ==
PROVIDERS: PCP Family Medicine; Referring Provider Family Medicine; Visit Provider Family Medicine
DX: M25.521 Pain in right elbow (principal); M25.531 Pain in right wrist
CPT/HCPCS: 73080; 73110

== ENCOUNTER 2019-06-20 14:58 | Outpatient (RCR) | payer MEDICARE, MEDICAID, SELFPAY ==
[2019-06-20 17:43] LABS: Absolute Lymphocyte Count 1.92 X10^3/uL (0.83-4.51); Absolute Neutrophil Count 3.9 X10^3/uL (2.0-7.7); Basophil# 0.03 X10^3/uL; Basophil% 0.4 % (0-1); Eosinophil# 0.12 X10^3/uL; Eosinophils% 1.8 % (0-5); Hematocrit 47.1 % (40-54); Hemoglobin 15.6 g/dL (13.0-16.5); Lymphocyte # 1.92 X10^3/ul (4.0); Lymphocyte % 28.6 % (19-41); Mean Corp Hgb Conc 33.1 g/dL (32-36); Mean Corpuscular Hgb 27.7 pg (27.0-32.0); Mean Corpuscular Volume 83.7 fL (80-94); Mean Platelet Vol. 11.3 fl (6.2-12.0); Monocyte# 0.76 X10^3/uL; Monocyte% 11.3 % (0-10); NRBC Flagged by Analyzer 0 % (0-5); Neutrophil # 3.86 X10^3/uL (2.7-7.7); Neutrophil % 57.6 % (47-70); Platelet Count 202 K/mm3 (150-450); RBC Distribution Width CV 14.6 % (11.6-14.6); RBC Distribution Width SD 44.2 fl (35.1-43.9); Red Blood Count 5.63 M/mm3 (4.6-6.2); White Blood Count 6.7 K/mm3 (4.4-11.0)
== END 2019-06-20 18:00 | disposition home or self-care (01) ==
LOC: MTLAB 14:58
PROVIDERS: Family Provider Family Medicine; PCP Family Medicine; Referring Provider Psychiatry & Neurology Psychiatry; Visit Provider Psychiatry & Neurology Psychiatry
DX: Z79.899 Other long term (current) drug therapy (principal)
CPT/HCPCS: 36415; 85025

== ENCOUNTER 2019-07-20 14:03 | Outpatient (RCR) | payer MEDICARE, MEDICAID, SELFPAY ==
[2019-07-20 15:27] LABS: Absolute Lymphocyte Count 1.86 X10^3/uL (0.83-4.51); Basophil# 0.04 X10^3/uL; Basophil% 0.6 % (0-1); Eosinophil# 0.08 X10^3/uL; Eosinophils% 1.2 % (0-5); Hematocrit 45.5 % (40-54); Hemoglobin 15.4 g/dL (13.0-16.5); Lymphocyte # 1.86 X10^3/ul (4.0); Lymphocyte % 28.6 % (19-41); Mean Corp Hgb Conc 33.8 g/dL (32-36); Mean Corpuscular Hgb 28.6 pg (27.0-32.0); Mean Corpuscular Volume 84.6 fL (80-94); Mean Platelet Vol. 11.5 fl (6.2-12.0); Monocyte# 0.54 X10^3/uL; Monocyte% 8.3 % (0-10); NRBC Flagged by Analyzer 0 % (0-5); Neutrophil # 3.96 X10^3/uL (2.7-7.7); Platelet Count 176 K/mm3 (150-450); RBC Distribution Width CV 13.6 % (11.6-14.6); RBC Distribution Width SD 42.2 fl (35.1-43.9); Red Blood Count 5.38 M/mm3 (4.6-6.2); White Blood Count 6.5 K/mm3 (4.4-11.0)
== END 2019-07-20 18:00 | disposition home or self-care (01) ==
LOC: MTLAB 14:03
PROVIDERS: Family Provider Family Medicine; PCP Family Medicine; Referring Provider Psychiatry & Neurology Psychiatry; Visit Provider Psychiatry & Neurology Psychiatry
DX: Z79.899 Other long term (current) drug therapy (principal)
CPT/HCPCS: 36415; 85025

== ENCOUNTER 2019-08-14 13:23 | Outpatient (RCR) | payer MEDICARE, MEDICAID, SELFPAY ==
[2019-08-14 14:56] LABS: Absolute Lymphocyte Count 1.72 X10^3/uL (0.83-4.51); Absolute Neutrophil Count 5.5 X10^3/uL (2.0-7.7); Basophil# 0.04 X10^3/uL; Basophil% 0.5 % (0-1); Eosinophils% 1.2 % (0-5); Hematocrit 48.2 % (40-54); Hemoglobin 16.1 g/dL (13.0-16.5); Lymphocyte # 1.72 X10^3/ul (4.0); Lymphocyte % 21.3 % (19-41); Mean Corp Hgb Conc 33.4 g/dL (32-36); Mean Corpuscular Hgb 28.3 pg (27.0-32.0); Mean Corpuscular Volume 84.7 fL (80-94); Mean Platelet Vol. 11.3 fl (6.2-12.0); Monocyte# 0.65 X10^3/uL; Monocyte% 8.1 % (0-10); NRBC Flagged by Analyzer 0 % (0-5); Neutrophil # 5.53 X10^3/uL (2.7-7.7); Neutrophil % 68.5 % (47-70); Platelet Count 198 K/mm3 (150-450); RBC Distribution Width CV 13.3 % (11.6-14.6); RBC Distribution Width SD 41.2 fl (35.1-43.9); Red Blood Count 5.69 M/mm3 (4.6-6.2); White Blood Count 8.1 K/mm3 (4.4-11.0)
[2019-08-14 15:11] LABS: Thyroid Stim Hormone (TSH) 1.07 uIU/mL (0.358-3.74)
== END 2019-08-24 18:00 | disposition home or self-care (01) ==
LOC: MTLAB 13:23
PROVIDERS: Family Provider Family Medicine; PCP Family Medicine; Referring Provider Psychiatry & Neurology Psychiatry; Visit Provider Psychiatry & Neurology Psychiatry
DX: Z79.899 Other long term (current) drug therapy (principal)
CPT/HCPCS: 36415; 84443; 85025

== ENCOUNTER 2019-09-20 11:16 | Outpatient (RCR) | payer MEDICARE, MEDICAID, SELFPAY ==
[2019-09-20 13:06] LABS: Absolute Lymphocyte Count 1.22 X10^3/uL (0.83-4.51); Basophil# 0.03 X10^3/uL; Basophil% 0.4 % (0-1); Eosinophil# 0.06 X10^3/uL; Eosinophils% 0.7 % (0-5); Hemoglobin 16.3 g/dL (13.0-16.5); Lymphocyte # 1.22 X10^3/ul (4.0); Lymphocyte % 14.9 % (19-41); Mean Corp Hgb Conc 33.3 g/dL (32-36); Mean Corpuscular Hgb 28.2 pg (27.0-32.0); Mean Corpuscular Volume 84.8 fL (80-94); Mean Platelet Vol. 11.4 fl (6.2-12.0); Monocyte# 0.83 X10^3/uL; Monocyte% 10.1 % (0-10); NRBC Flagged by Analyzer 0 % (0-5); Neutrophil # 6.02 X10^3/uL (2.7-7.7); Neutrophil % 73.7 % (47-70); Platelet Count 216 K/mm3 (150-450); RBC Distribution Width CV 13.2 % (11.6-14.6); RBC Distribution Width SD 40.7 fl (35.1-43.9); Red Blood Count 5.78 M/mm3 (4.6-6.2); White Blood Count 8.2 K/mm3 (4.4-11.0)
== END 2019-09-20 18:00 | disposition home or self-care (01) ==
LOC: MTLAB 11:16
PROVIDERS: Family Provider Family Medicine; PCP Family Medicine; Referring Provider Psychiatry & Neurology Psychiatry; Visit Provider Psychiatry & Neurology Psychiatry
DX: Z79.899 Other long term (current) drug therapy (principal)
CPT/HCPCS: 36415; 85025

== ENCOUNTER 2019-10-23 13:38 | Outpatient (RCR) | payer MEDICARE, MEDICAID, SELFPAY ==
[2019-10-23 16:04] LABS: Absolute Lymphocyte Count 1.07 X10^3/uL (0.83-4.51); Basophil# 0.04 X10^3/uL; Basophil% 0.6 % (0-1); Eosinophil# 0.05 X10^3/uL; Eosinophils% 0.7 % (0-5); Hematocrit 49.4 % (40-54); Hemoglobin 16.4 g/dL (13.0-16.5); Lymphocyte # 1.07 X10^3/ul (4.0); Mean Corp Hgb Conc 33.2 g/dL (32-36); Mean Corpuscular Hgb 29.1 pg (27.0-32.0); Mean Corpuscular Volume 87.6 fL (80-94); Mean Platelet Vol. 11.9 fl (6.2-12.0); Monocyte# 0.52 X10^3/uL; Monocyte% 7.8 % (0-10); NRBC Flagged by Analyzer 0 % (0-5); Neutrophil # 4.97 X10^3/uL (2.7-7.7); Neutrophil % 74.6 % (47-70); Platelet Count 208 K/mm3 (150-450); RBC Distribution Width CV 13.6 % (11.6-14.6); RBC Distribution Width SD 43.6 fl (35.1-43.9); Red Blood Count 5.64 M/mm3 (4.6-6.2); White Blood Count 6.7 K/mm3 (4.4-11.0)
== END 2019-10-23 18:00 | disposition home or self-care (01) ==
LOC: MTLAB 13:38
PROVIDERS: Family Provider Family Medicine; PCP Family Medicine; Referring Provider Psychiatry & Neurology Psychiatry; Visit Provider Psychiatry & Neurology Psychiatry
DX: Z79.899 Other long term (current) drug therapy (principal)
CPT/HCPCS: 36415; 85025

== ENCOUNTER 2019-11-21 16:09 | Outpatient (RCR) | payer MEDICARE, MEDICAID, SELFPAY ==
[2019-11-21 17:30] LABS: Absolute Lymphocyte Count 1.85 X10^3/uL (0.83-4.51); Absolute Neutrophil Count 5.2 X10^3/uL (2.0-7.7); Basophil# 0.04 X10^3/uL; Basophil% 0.5 % (0-1); Eosinophil# 0.13 X10^3/uL; Eosinophils% 1.6 % (0-5); Hematocrit 48.3 % (40-54); Hemoglobin 16.2 g/dL (13.0-16.5); Lymphocyte # 1.85 X10^3/ul (4.0); Lymphocyte % 22.8 % (19-41); Mean Corp Hgb Conc 33.5 g/dL (32-36); Mean Corpuscular Hgb 28.9 pg (27.0-32.0); Mean Corpuscular Volume 86.3 fL (80-94); Monocyte# 0.84 X10^3/uL; Monocyte% 10.3 % (0-10); NRBC Flagged by Analyzer 0 % (0-5); Neutrophil # 5.23 X10^3/uL (2.7-7.7); Neutrophil % 64.4 % (47-70); Platelet Count 217 K/mm3 (150-450); RBC Distribution Width CV 13.9 % (11.6-14.6); RBC Distribution Width SD 42.8 fl (35.1-43.9); White Blood Count 8.1 K/mm3 (4.4-11.0)
== END 2019-11-21 18:00 | disposition home or self-care (01) ==
LOC: MTLAB 16:09
PROVIDERS: Family Provider Family Medicine; PCP Family Medicine; Referring Provider Psychiatry & Neurology Psychiatry; Visit Provider Psychiatry & Neurology Psychiatry
DX: Z79.899 Other long term (current) drug therapy (principal)
CPT/HCPCS: 36415; 85025

== ENCOUNTER 2019-12-20 15:41 | Outpatient (RCR) | payer MEDICARE, MEDICAID, SELFPAY ==
[2019-12-20 17:46] LABS: Absolute Lymphocyte Count 1.77 X10^3/uL (0.83-4.51); Absolute Neutrophil Count 4.9 X10^3/uL (2.0-7.7); Basophil# 0.03 X10^3/uL; Basophil% 0.4 % (0-1); Eosinophil# 0.08 X10^3/uL; Hematocrit 48.2 % (40-54); Hemoglobin 16.4 g/dL (13.0-16.5); Lymphocyte # 1.77 X10^3/ul (4.0); Mean Corpuscular Hgb 28.8 pg (27.0-32.0); Mean Corpuscular Volume 84.7 fL (80-94); Mean Platelet Vol. 10.8 fl (6.2-12.0); Monocyte# 0.84 X10^3/uL; Monocyte% 10.9 % (0-10); NRBC Flagged by Analyzer 0 % (0-5); Neutrophil # 4.94 X10^3/uL (2.7-7.7); Neutrophil % 64.4 % (47-70); Platelet Count 206 K/mm3 (150-450); RBC Distribution Width CV 13.6 % (11.6-14.6); RBC Distribution Width SD 42.1 fl (35.1-43.9); Red Blood Count 5.69 M/mm3 (4.6-6.2); White Blood Count 7.7 K/mm3 (4.4-11.0)
== END 2019-12-25 18:00 | disposition home or self-care (01) ==
LOC: MTLAB 15:41
PROVIDERS: Family Provider Family Medicine; PCP Family Medicine; Referring Provider Psychiatry & Neurology Psychiatry; Visit Provider Psychiatry & Neurology Psychiatry
DX: Z79.899 Other long term (current) drug therapy (principal)
CPT/HCPCS: 36415; 85025

== ENCOUNTER 2020-01-24 14:24 | Outpatient (RCR) | payer MEDICARE, MEDICAID, SELFPAY ==
[2020-01-24 17:40] LABS: Absolute Lymphocyte Count 2.07 X10^3/uL (0.83-4.51); Absolute Neutrophil Count 4.3 X10^3/uL (2.0-7.7); Basophil# 0.05 X10^3/uL; Basophil% 0.7 % (0-1); Eosinophil# 0.08 X10^3/uL; Eosinophils% 1.1 % (0-5); Hematocrit 51.6 % (40-54); Hemoglobin 16.8 g/dL (13.0-16.5); Lymphocyte # 2.07 X10^3/ul (4.0); Lymphocyte % 28.6 % (19-41); Mean Corp Hgb Conc 32.6 g/dL (32-36); Mean Corpuscular Hgb 28.1 pg (27.0-32.0); Mean Corpuscular Volume 86.4 fL (80-94); Mean Platelet Vol. 11.3 fl (6.2-12.0); Monocyte% 9.7 % (0-10); NRBC Flagged by Analyzer 0 % (0-5); Neutrophil # 4.31 X10^3/uL (2.7-7.7); Neutrophil % 59.6 % (47-70); Platelet Count 231 K/mm3 (150-450); RBC Distribution Width CV 14.5 % (11.6-14.6); RBC Distribution Width SD 46.2 fl (35.1-43.9); Red Blood Count 5.97 M/mm3 (4.6-6.2); White Blood Count 7.2 K/mm3 (4.4-11.0)
== END 2020-01-24 18:00 | disposition home or self-care (01) ==
LOC: MTLAB 14:24
PROVIDERS: Family Provider Family Medicine; PCP Family Medicine; Referring Provider Psychiatry & Neurology Psychiatry; Visit Provider Psychiatry & Neurology Psychiatry
DX: Z79.899 Other long term (current) drug therapy (principal)
CPT/HCPCS: 36415; 85025

== ENCOUNTER → 2020-02-07 14:57 | Outpatient (CLI) ==
[2020-02-07 18:30] LABS: ALB/GLOB Ratio 1.1 RATIO (0.9-2.4); AST(SGOT) 10 U/L (15-37); Alanine Aminotransfer ALT/SGPT 28 U/L (16-61); Albumin, Serum 3.8 g/dL (3.2-5.0); Alkaline Phosphatase 80 U/L (45-117); Anion Gap 9 (5-15); BUN 15 mg/dL (7-18); BUN/Creat Ratio 14.7 RATIO (10-20); Calcium,Total 8.9 mg/dL (8.5-10.1); Chloride 103 mmol/L (98-107); Cholesterol 106 mg/dL (200); Creatinine, Serum 1.02 mg/dL (0.70-1.30); EST Glomerular Filtration Rate 80 mL/min (>60); Est Glom Filt Rate - Afr Amer 97 mL/min (>60); Globulin 3.5 g/dL (2.2-4.2); Glucose 175 mg/dL (74-106); High Density Lipoprotein 36 mg/dL; Potassium 3.1 mmol/L (3.5-5.1); Protein, Total 7.3 g/dL (6.4-8.2); Sodium Level 135 mmol/L (136-145); Thyroid Stim Hormone (TSH) 1.02 uIU/mL (0.358-3.74); Triglycerides 179 mg/dL; Very Low Density Lipoprotein 36 mg/dL (5-40)
== END ==
PROVIDERS: Family Medicine
DX: E11.9 Type 2 diabetes mellitus without complications (principal)
CPT/HCPCS: 36415; 80053; 80061; 84443

== ENCOUNTER 2020-02-21 10:13 | Outpatient (RCR) | payer MEDICARE, MEDICAID, SELFPAY ==
[2020-02-21 12:28] LABS: Absolute Lymphocyte Count 1.07 X10^3/uL (0.83-4.51); Absolute Neutrophil Count 4.1 X10^3/uL (2.0-7.7); Basophil# 0.03 X10^3/uL; Basophil% 0.5 % (0-1); Eosinophil# 0.05 X10^3/uL; Eosinophils% 0.9 % (0-5); Hematocrit 47.6 % (40-54); Hemoglobin 15.5 g/dL (13.0-16.5); Lymphocyte # 1.07 X10^3/ul (4.0); Lymphocyte % 18.7 % (19-41); Mean Corp Hgb Conc 32.6 g/dL (32-36); Mean Corpuscular Hgb 27.9 pg (27.0-32.0); Mean Corpuscular Volume 85.8 fL (80-94); Mean Platelet Vol. 10.8 fl (6.2-12.0); Monocyte# 0.41 X10^3/uL; Monocyte% 7.2 % (0-10); NRBC Flagged by Analyzer 0 % (0-5); Neutrophil # 4.14 X10^3/uL (2.7-7.7); Neutrophil % 72.5 % (47-70); Platelet Count 211 K/mm3 (150-450); RBC Distribution Width CV 14.5 % (11.6-14.6); RBC Distribution Width SD 45.5 fl (35.1-43.9); Red Blood Count 5.55 M/mm3 (4.6-6.2); White Blood Count 5.7 K/mm3 (4.4-11.0)
== END 2020-02-21 18:00 | disposition home or self-care (01) ==
LOC: MTLAB 10:13
PROVIDERS: Family Provider Family Medicine; PCP Family Medicine; Referring Provider Psychiatry & Neurology Psychiatry; Visit Provider Psychiatry & Neurology Psychiatry
DX: Z79.899 Other long term (current) drug therapy (principal)
CPT/HCPCS: 36415; 85025

== ENCOUNTER 2020-03-18 13:47 | Outpatient (RCR) | payer MEDICARE, MEDICAID, SELFPAY ==
[2020-03-18 15:22] LABS: Absolute Lymphocyte Count 1.59 X10^3/uL (0.83-4.51); Basophil# 0.02 X10^3/uL; Basophil% 0.3 % (0-1); Eosinophil# 0.06 X10^3/uL; Eosinophils% 0.8 % (0-5); Hematocrit 49.4 % (40-54); Hemoglobin 15.8 g/dL (13.0-16.5); Lymphocyte # 1.59 X10^3/ul (4.0); Lymphocyte % 21.5 % (19-41); Mean Corpuscular Hgb 28.4 pg (27.0-32.0); Mean Corpuscular Volume 88.8 fL (80-94); Mean Platelet Vol. 11.4 fl (6.2-12.0); Monocyte# 0.76 X10^3/uL; Monocyte% 10.3 % (0-10); NRBC Flagged by Analyzer 0 % (0-5); Neutrophil # 4.97 X10^3/uL (2.7-7.7); Platelet Count 190 K/mm3 (150-450); RBC Distribution Width CV 14.1 % (11.6-14.6); RBC Distribution Width SD 46.5 fl (35.1-43.9); Red Blood Count 5.56 M/mm3 (4.6-6.2); White Blood Count 7.4 K/mm3 (4.4-11.0)
== END 2020-03-18 18:00 | disposition home or self-care (01) ==
LOC: MTLAB 13:47
PROVIDERS: Family Provider Family Medicine; PCP Family Medicine; Referring Provider Psychiatry & Neurology Psychiatry; Visit Provider Psychiatry & Neurology Psychiatry
DX: Z79.899 Other long term (current) drug therapy (principal)
CPT/HCPCS: 36415; 85025

== ENCOUNTER 2020-04-23 12:16 | Outpatient (RCR) | payer MEDICARE, MEDICAID, SELFPAY ==
[2020-04-23 15:04] LABS: Absolute Lymphocyte Count 1.67 X10^3/uL (0.83-4.51); Absolute Neutrophil Count 5.5 X10^3/uL (2.0-7.7); Basophil# 0.03 X10^3/uL; Basophil% 0.4 % (0-1); Eosinophils% 1.3 % (0-5); Hemoglobin 14.7 g/dL (13.0-16.5); Lymphocyte # 1.67 X10^3/ul (4.0); Mean Corpuscular Hgb 28.1 pg (27.0-32.0); Mean Corpuscular Volume 87.8 fL (80-94); Mean Platelet Vol. 11.7 fl (6.2-12.0); Monocyte# 0.67 X10^3/uL; Monocyte% 8.4 % (0-10); NRBC Flagged by Analyzer 0 % (0-5); Neutrophil # 5.48 X10^3/uL (2.7-7.7); Neutrophil % 68.6 % (47-70); Platelet Count 168 K/mm3 (150-450); RBC Distribution Width CV 13.4 % (11.6-14.6); RBC Distribution Width SD 43.8 fl (35.1-43.9); Red Blood Count 5.24 M/mm3 (4.6-6.2)
== END 2020-04-23 18:00 | disposition home or self-care (01) ==
LOC: MTLAB 12:16
PROVIDERS: Family Provider Family Medicine; PCP Family Medicine; Referring Provider Psychiatry & Neurology Psychiatry; Visit Provider Psychiatry & Neurology Psychiatry
DX: Z79.899 Other long term (current) drug therapy (principal)
CPT/HCPCS: 36415; 85025

== ENCOUNTER 2020-05-23 11:30 | Outpatient (RCR) | payer MEDICARE, MEDICAID, SELFPAY ==
[2020-05-23 14:13] LABS: Absolute Lymphocyte Count 1.53 X10^3/uL (0.83-4.51); Basophil# 0.04 X10^3/uL; Basophil% 0.5 % (0-1); Eosinophil# 0.07 X10^3/uL; Hematocrit 43.9 % (40-54); Hemoglobin 14.3 g/dL (13.0-16.5); Lymphocyte # 1.53 X10^3/ul (4.0); Lymphocyte % 20.8 % (19-41); Mean Corp Hgb Conc 32.6 g/dL (32-36); Mean Corpuscular Hgb 28.4 pg (27.0-32.0); Mean Corpuscular Volume 87.1 fL (80-94); Monocyte# 0.71 X10^3/uL; Monocyte% 9.6 % (0-10); NRBC Flagged by Analyzer 0 % (0-5); Platelet Count 205 K/mm3 (150-450); RBC Distribution Width CV 13.4 % (11.6-14.6); RBC Distribution Width SD 43.3 fl (35.1-43.9); Red Blood Count 5.04 M/mm3 (4.6-6.2); White Blood Count 7.4 K/mm3 (4.4-11.0)
== END 2020-05-23 18:00 | disposition home or self-care (01) ==
LOC: MTLAB 11:30
PROVIDERS: Family Provider Family Medicine; PCP Family Medicine; Referring Provider Psychiatry & Neurology Psychiatry; Visit Provider Psychiatry & Neurology Psychiatry
DX: Z79.899 Other long term (current) drug therapy (principal)
CPT/HCPCS: 36415; 85025

== ENCOUNTER 2020-06-20 15:35 | Outpatient (RCR) | payer MEDICARE, MEDICAID, SELFPAY ==
[2020-06-20 17:31] LABS: Absolute Neutrophil Count 4.5 X10^3/uL (2.0-7.7); Basophil# 0.05 X10^3/uL; Basophil% 0.6 % (0-1); Eosinophil# 0.11 X10^3/uL; Eosinophils% 1.4 % (0-5); Hematocrit 46.6 % (40-54); Hemoglobin 15.3 g/dL (13.0-16.5); Lymphocyte % 29.7 % (19-41); Mean Corp Hgb Conc 32.8 g/dL (32-36); Mean Corpuscular Volume 88.3 fL (80-94); Mean Platelet Vol. 10.5 fl (6.2-12.0); Monocyte# 0.75 X10^3/uL; Monocyte% 9.7 % (0-10); NRBC Flagged by Analyzer 0 % (0-5); Neutrophil # 4.51 X10^3/uL (2.7-7.7); Neutrophil % 58.3 % (47-70); Platelet Count 213 K/mm3 (150-450); RBC Distribution Width CV 13.4 % (11.6-14.6); RBC Distribution Width SD 43.5 fl (35.1-43.9); Red Blood Count 5.28 M/mm3 (4.6-6.2); White Blood Count 7.7 K/mm3 (4.4-11.0)
== END 2020-06-20 18:00 | disposition home or self-care (01) ==
LOC: MTLAB 15:35
PROVIDERS: Family Provider Family Medicine; PCP Family Medicine; Referring Provider Psychiatry & Neurology Psychiatry; Visit Provider Psychiatry & Neurology Psychiatry
DX: Z79.899 Other long term (current) drug therapy (principal)
CPT/HCPCS: 36415; 85025

== ENCOUNTER 2020-07-11 17:00 | Outpatient (RCR) | payer MEDICARE, MEDICAID, SELFPAY ==
[2020-07-11] MEDS: COVID-19 VACC, MRNA(PFIZER)/PF 30 MCG/0.3 ML SYRINGE IM (15:59)
[2020-08-01] MEDS: COVID-19 VACC, MRNA(PFIZER)/PF 30 MCG/0.3 ML SYRINGE IM (14:08)
== END 2020-07-11 23:59 ==
LOC: IMMUN 17:00
PROVIDERS: PCP Family Medicine; Visit Provider Family Medicine
DX: Z23 Encounter for immunization (principal)
CPT/HCPCS: 0001A; 0002A; 91300

== ENCOUNTER 2020-07-23 12:15 | Outpatient (RCR) | payer MEDICARE, MEDICAID, SELFPAY ==
[2020-07-23 15:16] LABS: Absolute Lymphocyte Count 1.97 X10^3/uL (0.83-4.51); Absolute Neutrophil Count 3.9 X10^3/uL (2.0-7.7); Basophil# 0.05 X10^3/uL; Basophil% 0.7 % (0-1); Eosinophil# 0.09 X10^3/uL; Eosinophils% 1.3 % (0-5); Hematocrit 46.5 % (40-54); Lymphocyte # 1.97 X10^3/ul (4.0); Lymphocyte % 29.5 % (19-41); Mean Corp Hgb Conc 32.3 g/dL (32-36); Mean Corpuscular Hgb 28.8 pg (27.0-32.0); Mean Corpuscular Volume 89.3 fL (80-94); Mean Platelet Vol. 10.9 fl (6.2-12.0); Monocyte# 0.62 X10^3/uL; Monocyte% 9.3 % (0-10); NRBC Flagged by Analyzer 0 % (0-5); Neutrophil # 3.94 X10^3/uL (2.7-7.7); Neutrophil % 59.1 % (47-70); Platelet Count 212 K/mm3 (150-450); RBC Distribution Width CV 13.5 % (11.6-14.6); RBC Distribution Width SD 44.3 fl (35.1-43.9); Red Blood Count 5.21 M/mm3 (4.6-6.2); White Blood Count 6.7 K/mm3 (4.4-11.0)
== END 2020-07-23 18:00 | disposition home or self-care (01) ==
LOC: MTLAB 12:15
PROVIDERS: Family Provider Family Medicine; PCP Family Medicine; Referring Provider Psychiatry & Neurology Psychiatry; Visit Provider Psychiatry & Neurology Psychiatry
DX: Z79.899 Other long term (current) drug therapy (principal)
CPT/HCPCS: 36415; 85025

== ENCOUNTER 2020-08-21 16:03 | Outpatient (RCR) | payer MEDICARE, MEDICAID, SELFPAY ==
[2020-08-21 18:03] LABS: Absolute Lymphocyte Count 2.31 X10^3/uL (0.83-4.51); Absolute Neutrophil Count 4.4 X10^3/uL (2.0-7.7); Basophil# 0.05 X10^3/uL; Basophil% 0.6 % (0-1); Eosinophil# 0.12 X10^3/uL; Eosinophils% 1.6 % (0-5); Hematocrit 47.1 % (40-54); Lymphocyte # 2.31 X10^3/ul (0.83-4.51); Lymphocyte % 29.9 % (19-41); Mean Corp Hgb Conc 31.8 g/dL (32-36); Mean Corpuscular Hgb 28.6 pg (27.0-32.0); Mean Corpuscular Volume 89.7 fL (80-94); Mean Platelet Vol. 11.1 fl (6.2-12.0); Monocyte# 0.81 X10^3/uL; Monocyte% 10.5 % (0-10); NRBC Flagged by Analyzer 0 % (0-5); Neutrophil # 4.42 X10^3/uL (2.7-7.7); Neutrophil % 57.1 % (47-70); Platelet Count 214 K/mm3 (150-450); RBC Distribution Width CV 13.2 % (11.6-14.6); RBC Distribution Width SD 43.5 fl (35.1-43.9); Red Blood Count 5.25 M/mm3 (4.6-6.2); White Blood Count 7.7 K/mm3 (4.4-11.0)
== END 2020-08-21 18:00 | disposition home or self-care (01) ==
LOC: MTLAB 16:03
PROVIDERS: Family Provider Family Medicine; PCP Family Medicine; Referring Provider Psychiatry & Neurology Psychiatry; Visit Provider Psychiatry & Neurology Psychiatry
DX: Z79.899 Other long term (current) drug therapy (principal)
CPT/HCPCS: 36415; 85025

== ENCOUNTER 2020-09-19 11:08 | Outpatient (RCR) | payer MEDICARE, MEDICAID, SELFPAY ==
[2020-09-19 12:27] LABS: Absolute Lymphocyte Count 1.67 X10^3/uL (0.83-4.51); Absolute Neutrophil Count 4.6 X10^3/uL (2.0-7.7); Basophil# 0.05 X10^3/uL; Basophil% 0.7 % (0-1); Eosinophil# 0.12 X10^3/uL; Eosinophils% 1.7 % (0-5); Hematocrit 47.3 % (40-54); Hemoglobin 15.7 g/dL (13.0-16.5); Lymphocyte # 1.67 X10^3/ul (0.83-4.51); Lymphocyte % 23.7 % (19-41); Mean Corp Hgb Conc 33.2 g/dL (32-36); Mean Corpuscular Hgb 29.4 pg (27.0-32.0); Mean Corpuscular Volume 88.6 fL (80-94); Mean Platelet Vol. 11.1 fl (6.2-12.0); Monocyte% 8.5 % (0-10); NRBC Flagged by Analyzer 0 % (0-5); Neutrophil % 65.1 % (47-70); Platelet Count 198 K/mm3 (150-450); RBC Distribution Width CV 12.7 % (11.6-14.6); RBC Distribution Width SD 41.2 fl (35.1-43.9); Red Blood Count 5.34 M/mm3 (4.6-6.2); White Blood Count 7.1 K/mm3 (4.4-11.0)
== END 2020-09-19 18:00 | disposition home or self-care (01) ==
LOC: MTLAB 11:08
PROVIDERS: Family Provider Family Medicine; PCP Family Medicine; Referring Provider Psychiatry & Neurology Psychiatry; Visit Provider Psychiatry & Neurology Psychiatry
DX: Z79.899 Other long term (current) drug therapy (principal)
CPT/HCPCS: 36415; 85025

== ENCOUNTER 2020-10-22 14:09 | Outpatient (RCR) | payer MEDICARE, MEDICAID, SELFPAY ==
[2020-10-22 18:02] LABS: Absolute Lymphocyte Count 1.82 X10^3/uL (0.83-4.51); Absolute Neutrophil Count 4.4 X10^3/uL (2.0-7.7); Basophil# 0.03 X10^3/uL; Basophil% 0.4 % (0-1); Eosinophil# 0.13 X10^3/uL; Eosinophils% 1.8 % (0-5); Hematocrit 45.7 % (40-54); Hemoglobin 15.2 g/dL (13.0-16.5); Lymphocyte # 1.82 X10^3/ul (0.83-4.51); Lymphocyte % 25.7 % (19-41); Mean Corp Hgb Conc 33.3 g/dL (32-36); Mean Corpuscular Hgb 29.4 pg (27.0-32.0); Mean Corpuscular Volume 88.4 fL (80-94); Mean Platelet Vol. 11.3 fl (6.2-12.0); Monocyte# 0.68 X10^3/uL; Monocyte% 9.6 % (0-10); NRBC Flagged by Analyzer 0 % (0-5); Neutrophil % 62.1 % (47-70); Platelet Count 179 K/mm3 (150-450); RBC Distribution Width SD 42.1 fl (35.1-43.9); Red Blood Count 5.17 M/mm3 (4.6-6.2); White Blood Count 7.1 K/mm3 (4.4-11.0)
== END 2020-10-22 18:00 | disposition home or self-care (01) ==
LOC: MTLAB 14:09
PROVIDERS: Family Provider Family Medicine; PCP Family Medicine; Referring Provider Psychiatry & Neurology Psychiatry; Visit Provider Psychiatry & Neurology Psychiatry
DX: Z79.899 Other long term (current) drug therapy (principal)
CPT/HCPCS: 36415; 85025

== ENCOUNTER 2020-11-19 10:25 | Outpatient (RCR) | payer MEDICARE, MEDICAID, SELFPAY ==
[2020-11-19 12:37] LABS: Hematocrit 46.3 % (40-54); Hemoglobin 15.6 g/dL (13.0-16.5); Mean Corp Hgb Conc 33.7 g/dL (32-36); Mean Corpuscular Hgb 29.4 pg (27.0-32.0); Mean Corpuscular Volume 87.4 fL (80-94); Mean Platelet Vol. 11.1 fl (6.2-12.0); Platelet Count 208 K/mm3 (150-450); RBC Distribution Width CV 13.1 % (11.6-14.6); RBC Distribution Width SD 41.7 fl (35.1-43.9); White Blood Count 7.8 K/mm3 (4.4-11.0)
[2020-11-19 15:13] LABS: POSITIVE COUNT NO; POSITIVE DIFFERENTIAL NO; POSITIVE MORPHOLOGY NO
[2020-11-19 15:15] LABS: Platelet Estimate ADEQUATE (ADEQ); Red Cell Morphology N CHROM NORMAL (NORM C&C)
[2020-11-19 18:11] LABS: Eosinophil 2 % (0-5); Lymphocyte 36 % (19-41); Monocyte 2 % (0-10); Neutrophil-Segmented 60 % (47-70); Total Cells Counted 100 (MANUAL DIFF)
[2020-11-26 09:40] LABS: Absolute Neutrophil Count 4.7 X10^3/uL (2.0-7.7); Neutrophil # 4.68 X10^3/uL (2.7-7.7)
== END 2020-11-19 18:00 | disposition home or self-care (01) ==
LOC: MTLAB 10:25
PROVIDERS: Family Provider Family Medicine; PCP Family Medicine; Referring Provider Psychiatry & Neurology Psychiatry; Visit Provider Psychiatry & Neurology Psychiatry
DX: Z79.899 Other long term (current) drug therapy (principal)
CPT/HCPCS: 36415; 85007; 85025; 85027

== ENCOUNTER 2020-12-19 11:16 | Outpatient (RCR) | payer MEDICARE, MEDICAID, SELFPAY ==
[2020-12-19 15:09] LABS: Absolute Lymphocyte Count 2.16 X10^3/uL (0.83-4.51); Absolute Neutrophil Count 5.3 X10^3/uL (2.0-7.7); Basophil# 0.05 X10^3/uL; Basophil% 0.6 % (0-1); Eosinophils% 2.3 % (0-5); Hematocrit 46.4 % (40-54); Hemoglobin 15.5 g/dL (13.0-16.5); Lymphocyte # 2.16 X10^3/ul (0.83-4.51); Lymphocyte % 25.4 % (19-41); Mean Corp Hgb Conc 33.4 g/dL (32-36); Mean Corpuscular Hgb 29.4 pg (27.0-32.0); Mean Corpuscular Volume 87.9 fL (80-94); Mean Platelet Vol. 11.1 fl (6.2-12.0); Monocyte# 0.81 X10^3/uL; Monocyte% 9.5 % (0-10); NRBC Flagged by Analyzer 0 % (0-5); Neutrophil # 5.27 X10^3/uL (2.7-7.7); Neutrophil % 61.8 % (47-70); Platelet Count 219 K/mm3 (150-450); RBC Distribution Width CV 13.2 % (11.6-14.6); RBC Distribution Width SD 42.5 fl (35.1-43.9); Red Blood Count 5.28 M/mm3 (4.6-6.2); White Blood Count 8.5 K/mm3 (4.4-11.0)
== END 2020-12-19 18:00 | disposition home or self-care (01) ==
LOC: MTLAB 11:16
PROVIDERS: Family Provider Family Medicine; PCP Family Medicine; Referring Provider Psychiatry & Neurology Psychiatry; Visit Provider Psychiatry & Neurology Psychiatry
DX: Z79.899 Other long term (current) drug therapy (principal)
CPT/HCPCS: 36415; 85025